=== PATIENT | female | born 1970 ===

== ENCOUNTER 2020-01-11 14:12 | Outpatient (REF) | payer MEDICAID, SELFPAY ==
--- NOTE | 2020-01-11 | MM_ITS ---
EXAMINATION: MM DIAGNOSTIC DIGITAL BREAST TOMOSYNTHESIS, BILATERAL CLINICAL INFORMATION: Bilateral whitish nipple discharge for 2 years. Family history of breast cancer (sister). The lifetime risk of breast cancer based on the Tyrer-Cuzick Model is 18%. COMPARISON: Mammography: 08/19/2017, 07/30/2017, 12/30/2013, 12/18/2012 TECHNIQUE: Digital breast tomosynthesis is performed in both the craniocaudal and mediolateral oblique views along with computer-aided detection (CAD). Synthesized 2D images are generated from the tomosynthesis. Bilateral spot magnification craniocaudal and spot magnification mediolateral views were acquired. FINDINGS: The breasts are heterogeneously dense, which may obscure small masses (ACR BI-RADS breast composition Category c). Right breast: Grouped milk of calcium calcifications in the upper outer quadrant, 4 cm from nipple are again noted with slight increase in number compared to last study. No suspicious calcifications, masses or other abnormalities are seen. Left breast: There are 2 groupings of punctate and amorphous calcifications in the left breast, one located at 3:00 anterior depth, 2 cm from nipple and second one in the upper outer quadrant 6 cm from nipple. No suspicious masses or other abnormalities are seen. The results were discussed with the patient at the time of the exam with the help of demand planning manager. MM/MM tomosynthesis diagnostic BI IMPRESSION: 1. No mammographic evidence of malignancy in the right breast. 2. Two groupings of punctate and amorphous calcifications in the left breast warrant further evaluation. ASSESSMENT: BI-RADS 4: Suspicious RECOMMENDATION: Stereotactic biopsy of 2 groupings of left breast calcifications.
--- NOTE | 2020-01-11 14:19 | US_ITS ---
EXAMINATION: US DIAGNOSTIC ULTRASOUND BREAST, LEFT CLINICAL INFORMATION: Bilateral breast discharge for 2 years.. COMPARISON: March 02, 2018. TECHNIQUE: Ultrasound of the left breast is performed retroareolar region. FINDINGS: There is no focal suspicious finding. There is no solid mass, architectural abnormality, duct ectasia, or edema in the soft tissue planes. No abnormal filling defect within ducts is identified. US/US breast LT limited IMPRESSION: No left breast retroareolar mass. ASSESSMENT: BI-RADS 1: Negative RECOMMENDATION: 1. Patient should be managed based on the clinical impression. 2. Otherwise, routine annual screening mammography. This patient's information was entered into a reminder system with a target due date for their next mammogram.
--- NOTE | 2020-01-11 14:19 | US_ITS ---
EXAMINATION: US DIAGNOSTIC ULTRASOUND BREAST, RIGHT CLINICAL INFORMATION: Bilateral breast discharge for 2 years.. COMPARISON: March 02, 2018. TECHNIQUE: Ultrasound of the right breast is performed with real-time lugo scale imaging and color Doppler. FINDINGS: There is no focal suspicious finding. There is no solid mass, architectural abnormality, duct ectasia, or edema in the soft tissue planes. No abnormal filling defect within ducts is identified. US/US breast RT limited IMPRESSION: No specific ultrasound abnormality of the retroareolar region of the right breast. ASSESSMENT: BI-RADS 1: Negative RECOMMENDATION: Routine annual mammography screening due in 12 months. Clinical follow-up. This patient's information was entered into a reminder system with a target due date for their next mammogram.
== END 2020-01-11 14:13 | disposition home or self-care (01) ==
LOC: HO.MAMMO 14:12
PROVIDERS: Visit Provider Family Medicine
DX: N64.3 Galactorrhea not associated with childbirth (principal)
CPT/HCPCS: 76642; 77062; 77066

== ENCOUNTER 2020-05-03 09:45 | Outpatient (REF) | payer MEDICAID, SELFPAY ==
--- NOTE | ~2020-05-03 | MM_ITS ---
EXAMINATION: STEREOTACTIC TOMOSYNTHESIS-GUIDED VACUUM-ASSISTED BREAST BIOPSY (TWO SITES), LEFT SPECIMEN RADIOGRAPHS (TWO SPECIMENS), LEFT POST PROCEDURE DIGITAL MAMMOGRAM, LEFT CLINICAL INFORMATION: 2 groupings punctate calcification left breast recommended for sampling. COMPARISON: Mammography 01/11/2020. TECHNIQUE/PROCEDURE: Hospital provided interpreter for the deaf assisted for consent and throughout the procedures. Informed consent was obtained from the patient after discussion of the benefits, risks, and alternatives to biopsy today. Patient appeared to understand. Gave opportunity for questions. Patient signed consent form. FIRST BIOPSY (Anterior group of calcifications): BIOPSY TABLE: Hologic Affirm Prone Biopsy System. LESION: Type group of calcifications anterior outer left breast. LOCAL ANESTHESIA: 6 mL 1% lidocaine; 10 mL 1% lidocaine with epinephrine. DERMATOTOMY: Single skin german dermatotomy performed. NEEDLE: Suros Eviva 9-gauge vacuum assisted core biopsy device. APPROACH: lateral medial. TARGETING: Digital breast tomosynthesis used for targeting. CORES: 8. CLIP: Suros SecurMark Cylinder-shaped marker. SPECIMEN RADIOGRAPH - 1st specimen: Specimen radiograph is taken in separate room using digital mammography. There is one core with tightly grouped numerous calcifications corresponding to the targeted area. SECOND BIOPSY (posterior group of calcifications): Fresh biopsy supplies are used for 2nd biopsy site. BIOPSY TABLE: Hologic Affirm Prone Biopsy System. LESION: Faint grouped calcifications approximately 4 cm posterior to the anterior group. LOCAL ANESTHESIA: 6 mL 1% lidocaine; 10 mL 1% lidocaine with epinephrine. DERMATOTOMY: Single skin german dermatotomy performed. NEEDLE: Suros Eviva 9-gauge vacuum assisted core biopsy device. APPROACH: lateral medial. TARGETING: Digital breast tomosynthesis used for targeting. CORES: 6. CLIP: Suros SecurMark T-shaped marker. SPECIMEN RADIOGRAPH (B): Specimen radiograph is taken in separate room using digital mammography. There is one core with at least 2 calcifications in another core with tightly grouped numerous calcifications corresponding to the targeted area. POST PROCEDURE UNILATERAL DIGITAL MAMMOGRAM: The post biopsy mammogram is performed in separate room using separate digital mammography equipment from the biopsy procedure. CC and ML views are obtained. There are scattered areas of fibroglandular density (breast composition category: b). The clip markers are in position. The calcifications are decreased at both biopsy sites. No gross hematoma. The patient tolerated the procedure well. No immediate complications. Home instructions reviewed with the patient. Final pathology results are pending. MM/MM stereotactic biopsy LT IMPRESSION: 1. Digital tomosynthesis-guided core biopsy left breast 2 sites with 2 clips placed. 2. Specimen radiograph taken and post procedure mammogram. There is satisfactory positioning of the biopsy clips. 3. Final pathology results pending. An addendum report will be issued.
--- NOTE | ~2020-05-03 | MM_ITS ---
EXAMINATION: STEREOTACTIC TOMOSYNTHESIS-GUIDED VACUUM-ASSISTED BREAST BIOPSY (TWO SITES), LEFT SPECIMEN RADIOGRAPHS (TWO SPECIMENS), LEFT POST PROCEDURE DIGITAL MAMMOGRAM, LEFT CLINICAL INFORMATION: 2 groupings punctate calcification left breast recommended for sampling. COMPARISON: Mammography 01/11/2020. TECHNIQUE/PROCEDURE: Hospital provided private equity analyst assisted for consent and throughout the procedures. Informed consent was obtained from the patient after discussion of the benefits, risks, and alternatives to biopsy today. Patient appeared to understand. Gave opportunity for questions. Patient signed consent form. FIRST BIOPSY (Anterior group of calcifications): BIOPSY TABLE: Hologic Affirm Prone Biopsy System. LESION: Type group of calcifications anterior outer left breast. LOCAL ANESTHESIA: 6 mL 1% lidocaine; 10 mL 1% lidocaine with epinephrine. DERMATOTOMY: Single skin german dermatotomy performed. NEEDLE: Suros Eviva 9-gauge vacuum assisted core biopsy device. APPROACH: lateral medial. TARGETING: Digital breast tomosynthesis used for targeting. CORES: 8. CLIP: Suros SecurMark Cylinder-shaped marker. SPECIMEN RADIOGRAPH - 1st specimen: Specimen radiograph is taken in separate room using digital mammography. There is one core with tightly grouped numerous calcifications corresponding to the targeted area. SECOND BIOPSY (posterior group of calcifications): Fresh biopsy supplies are used for 2nd biopsy site. BIOPSY TABLE: Hologic Affirm Prone Biopsy System. LESION: Faint grouped calcifications approximately 4 cm posterior to the anterior group. LOCAL ANESTHESIA: 6 mL 1% lidocaine; 10 mL 1% lidocaine with epinephrine. DERMATOTOMY: Single skin german dermatotomy performed. NEEDLE: Suros Eviva 9-gauge vacuum assisted core biopsy device. APPROACH: lateral medial. TARGETING: Digital breast tomosynthesis used for targeting. CORES: 6. CLIP: Suros SecurMark T-shaped marker. SPECIMEN RADIOGRAPH (B): Specimen radiograph is taken in separate room using digital mammography. There is one core with at least 2 calcifications in another core with tightly grouped numerous calcifications corresponding to the targeted area. POST PROCEDURE UNILATERAL DIGITAL MAMMOGRAM: The post biopsy mammogram is performed in separate room using separate digital mammography equipment from the biopsy procedure. CC and ML views are obtained. There are scattered areas of fibroglandular density (breast composition category: b). The clip markers are in position. The calcifications are decreased at both biopsy sites. No gross hematoma. The patient tolerated the procedure well. No immediate complications. Home instructions reviewed with the patient. Final pathology results are pending. MM/MM stereotactic biopsy ea add IMPRESSION: 1. Digital tomosynthesis-guided core biopsy left breast 2 sites with 2 clips placed. 2. Specimen radiograph taken and post procedure mammogram. There is satisfactory positioning of the biopsy clips. 3. Final pathology results pending. An addendum report will be issued.
== END 2020-05-03 09:46 | disposition home or self-care (01) ==
LOC: HO.MAMMO 09:45
PROVIDERS: Visit Provider Surgery
DX: R92.1 Mammographic calcification found on diagnostic imaging of breast (principal); D05.12 Intraductal carcinoma in situ of left breast; Z87.891 Personal history of nicotine dependence
CPT/HCPCS: 19081; 19082; 88305; 88341; 88342; 99202; A4648

== ENCOUNTER → 2020-05-11 15:24 | Outpatient (BNVA) | payer MEDICAID, SELFPAY | PROVIDERS: PCP Family Medicine; Visit Provider Surgery | DX: R92.1 Mammographic calcification found on diagnostic imaging of breast (principal) | CPT/HCPCS: 99212 ==

== ENCOUNTER → 2020-05-16 14:47 | Outpatient (BNVA) | payer MEDICAID, SELFPAY | PROVIDERS: PCP Family Medicine; Visit Provider Surgery ==

== ENCOUNTER → 2020-05-31 15:51 | Outpatient (BNVA) | payer MEDICAID, SELFPAY | PROVIDERS: PCP Family Medicine; Visit Provider Surgery | DX: D05.02 Lobular carcinoma in situ of left breast (principal); D05.10 Intraductal carcinoma in situ of unspecified breast; E11.9 Type 2 diabetes mellitus without complications; I10 Essential (primary) hypertension; F32.9 Major depressive disorder, single episode, unspecified; F17.200 Nicotine dependence, unspecified, uncomplicated; Z80.3 Family history of malignant neoplasm of breast; Z79.4 Long term (current) use of insulin; Z79.899 Other long term (current) drug therapy | CPT/HCPCS: 99212 ==

== ENCOUNTER 2020-06-16 08:41 | Day surgery (SDC) | payer MEDICAID, SELFPAY ==
[2020-06-12 15:00] VITALS: BMI 26.4
--- NOTE | 2020-06-14 15:36 | P.CONAN_ITS ---
Documented by User: Sally Cantu 06/14/20 15:37 HPI - Anesthesia Eval Consult details Narrative: 49yo F for L Breast Lumpectomy Biopsy Needle Localization PMFSH Active Problems Active Problems: All Active Problems (Updated 06/12/20 @ 14:58 by Stacy Hernandez) Family history of breast cancer (Acute) Lobular carcinoma in situ (LCIS) of left breast (Acute) Ductal carcinoma in situ (DCIS) of breast (Acute) Hypertension (Acute) Diabetes mellitus (Acute) Depression (Acute) Breast calcification, left (Acute) Past Medical History Medical History Breast calcification, left Depression Diabetes mellitus Ductal carcinoma in situ (DCIS) of breast Elevated cholesterol Family history of breast cancer Hypertension Lobular carcinoma in situ (LCIS) of left breast Family History Family History Sister History of breast cancer Surgical History Surgical History History of tubal ligation Social History Social History Smoking Status: Current some day smoker Advance Directives Information Provided: No Meds Allergies Allergy/AdvReac Type Severity Reaction Status Date / Time No Known Allergies Allergy Verified 05/31/20 16:23 [No Known Allergies*] Home Medications Medication Instructions Recorded Confirmed Last Taken Type atorvastatin 80 mg tablet 80 mg PO DAILY 05/03/20 06/12/20 Unknown History docusate sodium 100 mg capsule 100 mg PO BID 05/03/20 06/12/20 Unknown History ferrous sulfate 325 mg (65 mg 325 mg PO DAILY 05/03/20 06/12/20 Unknown History iron) tablet insulin lispro protamine-lispro 20 unit SUBCUT BID 05/03/20 06/12/20 Unknown History 100 unit/mL (75-25) subcutaneous pen lisinopril 5 mg tablet 5 mg PO DAILY 05/03/20 06/12/20 Unknown History metformin 1,000 mg tablet 1,000 mg PO BID 05/03/20 06/12/20 Unknown History oxcarbazepine 600 mg tablet 600 mg PO BID 05/03/20 06/12/20 Unknown History polyethylene glycol 3350 17 gram 17 g PO DAILY 05/03/20 06/12/20 Unknown History oral powder packet quetiapine 100 mg tablet 100 mg PO DAILY 05/03/20 06/12/20 Unknown History sertraline 100 mg tablet 200 mg PO DAILY tab 05/03/20 06/12/20 Unknown History trazodone 100 mg tablet 100 mg PO BEDTIME PRN 05/03/20 06/12/20 Unknown History Exam Exam Date and Time: June 14, 2020 1536 Height,Weight and Vital Signs: Height 5 ft 4 in Weight 70 kg Assessment and Plan Assessment Anesthesia Assessment: Chart Reviewed Documented by User: Fernanda Dial 06/16/20 11:10 [facility] Past Medical History Medical History Breast calcification, left Depression Diabetes mellitus Ductal carcinoma in situ (DCIS) of breast Elevated cholesterol Family history of breast cancer Hypertension Lobular carcinoma in situ (LCIS) of left breast Family History Family History Sister History of breast cancer Surgical History Surgical History History of tubal ligation Social History Social History Smoking Status: Current some day smoker Advance Directives Information Provided: No Meds Allergies Allergy/AdvReac Type Severity Reaction Status Date / Time No Known Allergies Allergy Verified 05/31/20 16:23 [No Known Allergies*] Home Medications Medication Instructions Recorded Confirmed Last Taken Type atorvastatin 80 mg tablet 80 mg PO DAILY 05/03/20 06/12/20 Unknown History docusate sodium 100 mg capsule 100 mg PO BID 05/03/20 06/12/20 Unknown History ferrous sulfate 325 mg (65 mg 325 mg PO DAILY 05/03/20 06/12/20 Unknown History iron) tablet insulin lispro protamine-lispro 20 unit SUBCUT BID 05/03/20 06/12/20 Unknown History 100 unit/mL (75-25) subcutaneous pen lisinopril 5 mg tablet 5 mg PO DAILY 05/03/20 06/12/20 Unknown History metformin 1,000 mg tablet 1,000 mg PO BID 05/03/20 06/12/20 Unknown History oxcarbazepine 600 mg tablet 600 mg PO BID 05/03/20 06/12/20 Unknown History polyethylene glycol 3350 17 gram 17 g PO DAILY 05/03/20 06/12/20 Unknown History oral powder packet quetiapine 100 mg tablet 100 mg PO DAILY 05/03/20 06/12/20 Unknown History sertraline 100 mg tablet 200 mg PO DAILY tab 05/03/20 06/12/20 Unknown History trazodone 100 mg tablet 100 mg PO BEDTIME PRN 05/03/20 06/12/20 Unknown History Exam Airway Mallampati Class: I (Edentulous) TM Dist: >3cm Neck ROM: Full Loose/Missing/Broken Teeth: Yes, Upper and Lower Heart: RRR Lungs: CTA Assessment and Plan Assessment Anesthesia Assessment: Anesthesia Plan Discussed and Chart Reviewed Final Anesthetic Review NPO: Yes ASA Class: II Final Preanesthetic Review: Meds/Allgs Chart Reviewed, Consent Obtained/Reviewed and Anes Risks/Benef Reviewed Patient Risk: Intermediate Procedure Risk: Low Anesthetic Plan Anesthetic Plan: MAC: Disposition: Standard PACU
[2020-06-16] VITALS (9 sets, daily range): BP systolic 102–123; BP diastolic 56–73; PULSE 78–91; RESP 12–16; TEMP 36.2–37.2; O2SAT 93–100
--- NOTE | ~2020-06-16 | MM_ITS ---
EXAMINATION: MM MAMMOGRAM GUIDED NEEDLE LOCALIZATION BREAST, LEFT MM NEEDLE LOCALIZATION SPECIMEN FROM THE LEFT BREAST CLINICAL INFORMATION: 49-year-old with recent diagnosis DCIS left breast upper outer quadrant mid depth. Family history breast cancer, sister. COMPARISON: Mammography 01/11/2020, 05/03/2020, left breast stereotactic biopsy, 05/03/2020. TECHNIQUE NEEDLE LOC: Proper informed consent is obtained from the patient after discussion of the procedure, potential risks and complications, and alternatives including declining the procedure today. Patient was given an opportunity for questions. The patient appeared to understand. The patient consented to the procedure and signed the consent form. Hospital provided diplomatic interpreter assisted for the consent and throughout the procedure. GUIDANCE: Digital mammography. APPROACH: Lateral Medial. TARGET: Suros SecurMark T-shaped marker. ANESTHESIA: lidocaine 1%: 4 mL. LOCALIZATION MARKER: [place] MammaLok 5 cm length. The skin is prepped and local anesthesia administered. The needle is positioned and position assessed with mammography. The wire is hooked into position. [place] needle protector placed. The patient tolerated the procedure well and had no immediate complication. Procedure localization discussed with Dr. Locke following the procedure. TECHNIQUE SPECIMEN RADIOGRAPH: Imaging of the excised specimen is performed using digital mammography in 1 view. FINDINGS SPECIMEN RADIOGRAPH: The specimen shows the needle and hookwire are delivered intact. The biopsy clip marker is identified in the specimen along with punctate calcifications. Results were called to Dr. Manoj Locke in the operating room at the time of imaging. MM/MM needle loc LT IMPRESSION: 1. Status post left breast needle localization with wire hooked into position. 2. Post operative specimen radiograph obtained.
[2020-06-16 09:15] LABS: Glucose, Whole Blood 114 mg/dL (60-115)
--- NOTE | 2020-06-16 10:08 | PC.NURSE ---
verbal report given to stacie monsivais for needle loc. off unit.
--- NOTE | 2020-06-16 10:45 | PC.NURSE ---
patient back from needle biopsy in [facility].
[2020-06-16] MEDS: Lactated Ringers 1,000 ML 100 ML IVCONT (10:48)
--- NOTE | 2020-06-16 11:05 | MHC.SHP ---
Pre-Procedural Eval Section B Chief Complaint: Lobular carcinoma in situ (LCIS) of left breast Allergies: Allergies Allergy/AdvReac Type Severity Reaction Status Date / Time No Known Allergies Allergy Verified 05/31/20 16:23 [No Known Allergies*] Plan I have reviewed the history and physical and performed a pertinent physical examination on my patient. No changes have occurred unless specified.
--- NOTE | 2020-06-16 12:16 | PM.OP ---
Brief Operative Note Date of Service: 06/16/20 Pre-op diagnosis: DCIS left breast Post-op diagnosis: same Procedure: Lumpectomy, left breast, with needle localization Surgeon: Manoj Locke MD Anesthesia: GLMA Estimated blood loss (mL): 30 Pathology: other (Lumpectomy specimen) Condition: stable Disposition: PACU
--- NOTE | 2020-06-16 12:17 | W.PM.OPN ---
Operative Note Operative Note Date of Service: 06/16/20 Narrative: Preop diagnosis: DCIS, left breast Postop diagnosis: DCIS left breast Procedure: Lumpectomy, left breast with needle localization Surgeon: Manoj Locke MD The patient is a 49 female who had undergone biopsy of left breast microcalcifications at the 1 o'clock position. This turned out to be DCIS on pathology. Therefore, I explained to her that we needed to proceed with surgical treatment and explained to her her options. She decided to proceed with breast conservation treatment with lumpectomy. She understood the technique of the procedure and she was aware of the risks, benefits and alternatives. She was brought to the operating room and placed supine on the table under general anesthesia via laryngeal mask airway. The left breast was prepped draped in the usual sterile fashion. She underwent needle localization earlier, and the localizing wire was seen on the left upper outer quadrant towards the medial aspect of the breast. I made an incision on the skin adjacent to this needle using a blade 15 after infiltration with lidocaine 1%. This was extended through the full-thickness of the skin and subcutaneous fat using the electrocautery I then proceeded to sharply dissect through the subcutaneous tissue all the way to the breast using curved Medrano scissors. I proceeded to dissect around the localizing needle to make sure that we had adequate margins of breast tissue around this. I proceeded to circumferentially dissect around using the Medrano scissors all the way past the curved tip of the localizing wire. I proceeded to dissect posteriorly with the same of method of sharp dissection using the Medrano scissors. I had marked the superior aspect of the lump as well as lateral aspect with sutures prior to complete excision. I continued to dissect circumferentially with good amount of tissue surrounding the needle until this was completely excised and sent as a specimen for immediate re-ray. I observed for hemostasis. I cauterized oozing areas then copiously irrigated. Once hemostasis was ensured, I proceeded to reoppose the subcutaneous layer and breast tissue with Dexon 3-0 interrupted sutures. Skin closure was achieved with Dexon 4-0 subcuticular sutures. Steri-Strips and dressings were applied. The iincision was infiltrated with Marcaine 0.5% for postop analgesia and the procedure was completed. The patient tolerated the procedure well. There were no complications noted. Initial and final counts of sponges and instruments were correct. Estimated blood was about 40 cc. The patient was extubated without difficulty in the operating room and transferred to recovery with a vice signs were Prior to completion of the procedure, I received a phone call from the radiologist confirming that the clip was within the specimen along with the entire needle. It appeared that we had included the entire area of concern within the lumpectomy specimen.
== END 2020-06-16 14:41 | disposition home or self-care (01) ==
PROVIDERS: Visit Provider Surgery
PROC: (CPT 19301; principal; 2020-06-16 11:00)
PROC: (CPT 19301; 2020-06-16 11:00)
DX: D05.02 Lobular carcinoma in situ of left breast (principal); E11.9 Type 2 diabetes mellitus without complications; I10 Essential (primary) hypertension; Z79.4 Long term (current) use of insulin; Z79.899 Other long term (current) drug therapy; Z80.3 Family history of malignant neoplasm of breast
CPT/HCPCS: 19301; 19281; 82947; 88307; 88329; 88341; 88342; A4648; J0690; J1100; J2250; J2405; J3010

== ENCOUNTER → 2020-07-06 12:53 | Outpatient (BNVA) | payer MEDICAID, SELFPAY | PROVIDERS: PCP Family Medicine; Visit Provider Surgery | DX: D05.10 Intraductal carcinoma in situ of unspecified breast (principal); Z80.3 Family history of malignant neoplasm of breast | CPT/HCPCS: 99212 ==

== ENCOUNTER → 2020-07-14 14:18 | Outpatient (BNV) | payer MEDICAID, SELFPAY | PROVIDERS: PCP Nurse Practitioner; Referring Provider Surgery; Visit Provider Internal Medicine Medical Oncology | DX: D05.12 Intraductal carcinoma in situ of left breast (principal); D64.9 Anemia, unspecified; Z79.810 Long term (current) use of selective estrogen receptor modulators (SERMs); Z92.3 Personal history of irradiation | CPT/HCPCS: 99204; 99213; 99214 ==

== ENCOUNTER → 2020-08-02 14:31 | Outpatient (BNVA) | payer MEDICAID, SELFPAY | PROVIDERS: PCP Nurse Practitioner; Referring Provider Nurse Practitioner; Visit Provider Surgery | DX: Z13.89 Encounter for screening for other disorder (principal) | CPT/HCPCS: 99212 ==

== ENCOUNTER → 2020-11-01 16:00 | Outpatient (BNVA) | payer MEDICAID, SELFPAY | PROVIDERS: PCP Nurse Practitioner; Referring Provider Nurse Practitioner; Visit Provider Surgery | DX: D05.82 Other specified type of carcinoma in situ of left breast (principal); E11.9 Type 2 diabetes mellitus without complications; F17.210 Nicotine dependence, cigarettes, uncomplicated; Z80.3 Family history of malignant neoplasm of breast; Z79.4 Long term (current) use of insulin; Z79.899 Other long term (current) drug therapy | CPT/HCPCS: 99212 ==

== ENCOUNTER 2020-12-01 14:32 | Emergency (ER) | payer MEDICAID, SELFPAY ==
--- NOTE | ~2020-12-01 | XR_ITS ---
EXAMINATION: XR CHEST CLINICAL INFORMATION: Cough. COMPARISON: None TECHNIQUE: Frontal view of the chest was obtained. FINDINGS: The lungs are well-expanded and clear of acute process. The heart size and pulmonary vascularity is normal. There is mild levoscoliosis upper dorsal spine. XR/XR chest 1V IMPRESSION: Unremarkable chest exam.
[2020-12-01 14:44] VITALS: BP 110/69; PULSE 84; O2SAT 99
--- NOTE | 2020-12-01 14:51 | ED_ITS ---
HPI - SOB/Dyspnea General Chief Complaint: General Medical Stated Complaint: covid symptoms Time Seen by Provider: 12/01/20 14:51 Source: patient and EMS Mode of arrival: EMS Limitations: no limitations History of Present Illness HPI Narrative: 50 y/o female with history of HTN, DM on insulin depression, bipolar disorder, active smoker, DCIS of left breast 2020 who presents to the ER from home via EMS with reports of one week of feeling unwell with fatigue, headaches, body aches and intermittent dizziness. She has no sick contacts at home. She was vaccinated for COVID back in July. She has not been eating or dr inking well today. She has no chest pain or SOB. No abdominal pain, N/V/D. MD elicited complaint: cough Pertinent past history: diabetes Context: recent illness Timing: constant Severity: moderate Exacerbating factors: nothing Relieving factors: nothing Known history of: diabetes Associated symptoms: denies other symptoms Treatment prior to arrival: none Related Data Home oxygen amount: none Home Medications Medication Instructions Recorded Confirmed atorvastatin 80 mg tablet (Lipitor) 80 mg PO DAILY 05/03/20 11/01/20 docusate sodium 100 mg capsule 100 mg PO BID 05/03/20 11/01/20 (Colace) insulin lispro protamine-lispro 20 unit SUBCUT BID 05/03/20 11/01/20 100 unit/mL (75-25) subcutaneous pen lisinopril 5 mg tablet 5 mg PO DAILY 05/03/20 11/01/20 metformin 1,000 mg tablet 1,000 mg PO BID 05/03/20 11/01/20 oxcarbazepine 600 mg tablet 600 mg PO BID 05/03/20 11/01/20 polyethylene glycol 3350 17 gram 17 g PO DAILY 05/03/20 11/01/20 oral powder packet (Miralax) quetiapine 100 mg tablet (Seroquel) 100 mg PO DAILY 05/03/20 11/01/20 sertraline 100 mg tablet (Zoloft) 200 mg PO DAILY tab 05/03/20 11/01/20 trazodone 100 mg tablet 100 mg PO BEDTIME PRN 05/03/20 11/01/20 Previous Rx's Medication Instructions Recorded oxycodone-acetaminophen 5 mg-325 1 - 2 tab PO Q4-6H PRN #30 tab 04/09/21 mg tablet (Percocet) ibuprofen 600 mg tablet 600 mg PO Q6H PRN #30 tab 09/22/20 ferrous sulfate 325 mg (65 mg 325 mg PO DAILY #60 tab 10/17/20 iron) tablet ferrous sulfate 325 mg (65 mg 325 mg PO DAILY #60 tab 10/17/20 iron) tablet tamoxifen 20 mg tablet 20 mg PO DAILY #90 tab 10/17/20 Allergies Allergy/AdvReac Type Severity Reaction Status Date / Time No Known Allergies Allergy Verified 12/01/20 14:59 [No Known Allergies*] Review of Systems Review of Systems: Constitutional: No Fever, No Chills ENT/Mouth: + sore throat, No Rhinorrhea, No Swallowing Difficulty Cardiovascular: No Chest Pain, No SOB, No Orthopnea, No Edema Respiratory: No Cough, No Sputum, No Wheezing, No dyspnea Gastrointestinal: No Nausea, No Vomiting, No Diarrhea, No abdominal Pain Genitourinary: No Dysuria, No Urinary Frequency, No Hematuria Musculoskeletal: + joint pain, + Myalgias Skin: No Skin Lesions, No rash Neuro: + Weakness, No Numbness, + Dizziness, + Headache Psych: No Anxiety/Panic, No Depression Heme/Lymph: No Bruising, No Lymphadenopathy Endocrine: No Polyuria, No Polydipsia [facility] Past Medical History Medical History (Updated 12/01/20 @ 19:25 by MARAH Ward) Breast calcification, left Depression Diabetes mellitus Ductal carcinoma in situ (DCIS) of breast Elevated cholesterol Family history of breast cancer Hypertension Lobular carcinoma in situ (LCIS) of left breast Surgical History H/O breast surgery History of tubal ligation Family History Family History Sister History of breast cancer Social History Social History Alcohol intake: never Patient Tobacco Use Status: Current everyday Tobacco user Tobacco use type: Cigarette Use of substances other than those prescribed or required for medical reasons: Yes Substance Use Type: Crack/Cocaine Advance Directives: No Advance Directives Information Provided: No Patient : No Physical Exam Vital Signs: Vital Signs: Last Vital Signs Temp 99.0 F 12/01/20 19:19 Pulse 75 12/01/20 19:19 Resp 16 12/01/20 19:19 BP 99/50 L 12/01/20 19:12 Pulse Ox 97 12/01/20 19:12 Body Mass Index 24.9 Appearance: Alert. Oriented X3. No acute distress. Eyes: Pupils equal, round and reactive to light. ENT: Pharynx normal. Neck: Normal inspection. Neck supple. CVS: Normal heart rate and rhythm. Pulses normal. Respiratory: No respiratory distress. Breath sounds normal. Abdomen: Soft and nontender. +BS x4 Skin: Skin warm and dry. Normal skin color. Normal skin turgor. No rashes. Extremities: No lower extremity edema. Neuro: Oriented X 3. No motor deficit. No sensory deficit. Course Course Course Narrative: 50 y/o female presenting with flu like symptoms for 1 week. Poor PO intake today. Called 911 to come to the ER for evaluation, she is very w eak. Will get COVID swab and basic lab workup. Reevaluation(s) Reevaluation #1: COVID negative. Glucose 33 - awake and alert but reports feeling tired. Given juice and a sandwich. She took her 75/25 insulin earlier today and did not eat much. Reevaluation #2: Glucose improved to 70 --> 90s with PO intake. She is feeling much better and facetiming her family. She is stable for d/c home. Hypoglycemia likely related to poor PO intake. Encouraged to check sugars ac/hs and f/u with PCP MDM - SOB/Dyspnea Lab Data Result diagrams: 12/01/20 17:06 12/01/20 17:06 Labs: Lab Results 12/01/20 12/01/20 12/01/20 Range/Units 14:51 16:51 17:06 WBC 11.5 H (4.8-10.8) X10*3/uL RBC 4.06 L (4.20-5.50) X10*6/uL Hgb 9.1 L (12.0-16.0) g/dl Hct 30.8 L (37-47) % MCV 75.9 L (80-98) fL MCH 22.4 L (27.0-33.0) pg MCHC 29.5 L (31.0-35.0) g/dl RDW 19.6 H (11.0-16.0) % Plt Count 463 H D (160-400) X10*3/uL MPV 8.4 L (9.4-12.3) fL Immature Gran % (Auto) 0.8 H (0.0-0.4) % Neut % (Auto) 71.9 (45-73) % Lymph % (Auto) 18.5 L (20-40) % Putnam % (Auto) 7.5 (2-11) % Eos % (Auto) 0.7 (0-4) % Baso % (Auto) 0.6 (0-2) % Lymph # (Auto) 2.1 (1.2-4.9) X10*3/uL [place] # (Auto) 0.9 (0.1-1.2) X10*3/uL Eos # (Auto) 0.1 (0.0-0.4) X10*3/uL Baso # (Auto) 0.1 (0.0-0.2) X10*3/uL Abs Immat Gran (auto) 0.09 H (0.00-0.03) X10*3/uL Absolute Neuts (auto) 8.3 (2.0-8.3) X10*3/uL Absolute Nucleated RBC 0.000 (0.0-0.012) X10*3/uL Nucleated RBC % (auto) 0.0 (0.0-0.2) /100WBC Sodium (135-145) mmol/L Potassium (3.3-5.1) mmol/L Chloride (96-108) mmol/L Carbon Dioxide (22-29) mmol/L Anion Gap (12-20) BUN (9-16) mg/dL Creatinine (0.5-1.4) mg/dL Estim Creat Clear Calc Estimated GFR POC Glucose 33 L* (60-115) mg/dL Random Glucose (60-115) mg/dL Calcium (8.4-10.2) mg/dL Magnesium (1.6-2.6) mg/dL Total Bilirubin (0.0-1.0) mg/dL Direct Bilirubin (0.0-0.5) mg/dL AST (5-31) U/L ALT (0-31) U/L Alkaline Phosphatase (39-117) U/L Total Protein (6.5-8.0) g/dL Albumin (3.5-5.0) g/dL COVID-19 (MILI) Negative (Negative) COVID-19 Clin Com See Note 12/01/20 12/01/20 12/01/20 Range/Units 17:06 17:46 19:11 WBC (4.8-10.8) X10*3/uL RBC (4.20-5.50) X10*6/uL Hgb (12.0-16.0) g/dl Hct (37-47) % MCV (80-98) fL MCH (27.0-33.0) pg MCHC (31.0-35.0) g/dl RDW (11.0-16.0) % Plt Count (160-400) X10*3/uL MPV (9.4-12.3) fL Immature Gran % (Auto) (0.0-0.4) % Neut % (Auto) (45-73) % Lymph % (Auto) (20-40) % [place]nam % (Auto) (2-11) % Eos % (Auto) (0-4) % Baso % (Auto) (0-2) % Lymph # (Auto) (1.2-4.9) X10*3/uL [place] # (Auto) (0.1-1.2) X10*3/uL Eos # (Auto) (0.0-0.4) X10*3/uL Baso # (Auto) (0.0-0.2) X10*3/uL Abs Immat Gran (auto) (0.00-0.03) X10*3/uL Absolute Neuts (auto) (2.0-8.3) X10*3/uL Absolute Nucleated RBC (0.0-0.012) X10*3/uL Nucleated RBC % (auto) (0.0-0.2) /100WBC Sodium 141 (135-145) mmol/L Potassium 4.0 (3.3-5.1) mmol/L Chloride 106 (96-108) mmol/L Carbon Dioxide 26 (22-29) mmol/L Anion Gap 13 (12-20) BUN 5 L (9-16) mg/dL Creatinine 0.70 (0.5-1.4) mg/dL Estim Creat Clear Calc 91.7 Estimated GFR > 60 POC Glucose 75 94 (60-115) mg/dL Random Glucose 38 L* D (60-115) mg/dL Calcium 9.2 (8.4-10.2) mg/dL Magnesium 2.0 (1.6-2.6) mg/dL Total Bilirubin 0.2 (0.0-1.0) mg/dL Direct Bilirubin < 0.2 (0.0-0.5) mg/dL AST 10 (5-31) U/L ALT 10 (0-31) U/L Alkaline Phosphatase 89 (39-117) U/L Total Protein 7.6 (6.5-8.0) g/dL Albumin 3.9 (3.5-5.0) g/dL COVID-19 (MILI) (Negative) COVID-19 Clin Com Critical Care Time Critical Care Time Critical Care Time: No Discharge Plan Discharge Clinical Impression: Hypoglycemia, Acute viral syndrome Patient Disposition: Home, Self-Care Instructions: Viral Syndrome (ED), Diabetes and Nutrition (ED) Additional Instructions: Your COVID test was NEGATIVE. Your blood sugars were noted to be low today but improved after eating and drinking. Make sure you are eating normally after taking your insulin. Monitor your sugars before meals and before bedtime. Follow up with your doctor next week. If you develop new or worsening symptoms call 911 or come back to the ER for further evaluation. Prescriptions: No Action ibuprofen 600 mg tablet 600 mg PO Q6H PRN (Reason: pain) Qty: 30 RF: 0 oxycodone-acetaminophen [Percocet] 5-325 mg tablet 1 - 2 tab PO Q4-6H PRN (Reason: pain) Qty: 30 RF: 0 ferrous sulfate 325 mg (65 mg iron) Tablet 325 mg PO DAILY Qty: 60 RF: 3 ferrous sulfate 325 mg (65 mg iron) tablet 325 mg PO DAILY Qty: 60 RF: 4 tamoxifen 20 mg Tablet 20 mg PO DAILY Qty: 90 RF: 4 atorvastatin [Lipitor] 80 mg tablet 80 mg PO DAILY RF: 0 lisinopril 5 mg tablet 5 mg PO DAILY RF: 0 docusate sodium [Colace] 100 mg capsule 100 mg PO BID RF: 0 polyethylene glycol 3350 [Miralax] 17 gram powder in packet 17 g PO DAILY RF: 0 metformin 1,000 mg tablet 1,000 mg PO BID RF: 0 insulin lispro protamin-lispro 100 unit/mL (75-25) insulin pen 20 unit subcut BID RF: 0 trazodone 100 mg tablet 100 mg PO BEDTIME PRN (Reason: Insomnia) RF: 0 oxcarbazepine 600 mg tablet 600 mg PO BID RF: 0 sertraline [Zoloft] 100 mg tablet 200 mg PO DAILY RF: 0 quetiapine [Seroquel] 100 mg tablet 100 mg PO DAILY RF: 0 Referrals: [facility] [Primary Care Provider] - 3 days Interventions: ED Discharge Assessment Last Done: 12/01/20 19:41 Discharge Date/Time: 12/01/20 19:42
[2020-12-01 14:59] VITALS: BP 109/55; PULSE 84; RESP 18; TEMP 36.9; O2SAT 98; BMI 24.9
[2020-12-01 15:20] LABS: COVID-19 Test Negative (Negative); IDNOW Serial# 9DD0AD1C
[2020-12-01 16:38] VITALS: BP 94/58; PULSE 77; RESP 18; TEMP 36.9; O2SAT 98
[2020-12-01 17:10] LABS: MANUAL DIFF FLAG NO
[2020-12-01 17:12] LABS: Basophils Absolute Auto 0.1 X10*3/uL (0.0-0.2); Basophils Percent Auto 0.6 % (0-2); Eosinophils Absolute Auto 0.1 X10*3/uL (0.0-0.4); Eosinophils Percent Auto 0.7 % (0-4); Hematocrit 30.8 % (37-47); Hemoglobin 9.1 g/dl (12.0-16.0); Imm Gran Abs Auto 0.09 X10*3/uL (0.00-0.03); Imm Gran Pct Auto 0.8 % (0.0-0.4); Lymphocytes Absolute Auto 2.1 X10*3/uL (1.2-4.9); Lymphocytes Percent Auto 18.5 % (20-40); Mean Corpuscular HGB Conc 29.5 g/dl (31.0-35.0); Mean Corpuscular Hemoglobin 22.4 pg (27.0-33.0); Mean Corpuscular Volume 75.9 fL (80-98); Mean Platelet Volume 8.4 fL (9.4-12.3); Monocytes Absolute Auto 0.9 X10*3/uL (0.1-1.2); Monocytes Percent Auto 7.5 % (2-11); Neutrophils Absolute Auto 8.3 X10*3/uL (2.0-8.3); Neutrophils Percent Auto 71.9 % (45-73); Platelet Count 463 X10*3/uL (160-400); Red Blood Count 4.06 X10*6/uL (4.20-5.50); Red Cell Distribution Width 19.6 % (11.0-16.0); White Blood Count 11.5 X10*3/uL (4.8-10.8)
[2020-12-01 17:34] LABS: Alanine Aminotransferase 10 U/L (0-31); Albumin Level 3.9 g/dL (3.5-5.0); Alkaline Phosphatase 89 U/L (39-117); Anion Gap 13 (12-20); Aspartate Amino Transferase 10 U/L (5-31); Bilirubin Direct < 0.2 mg/dL (0.0-0.5); Bilirubin Total 0.2 mg/dL (0.0-1.0); Blood Urea Nitrogen 5 mg/dL (9-16); Calcium 9.2 mg/dL (8.4-10.2); Carbon Dioxide 26 mmol/L (22-29); Chloride 106 mmol/L (96-108); Creatinine Clr Calc Pharmacy 91.7; Estimated Glomerular Filt Rate > 60; Glucose Random 38 mg/dL (60-115); Sodium 141 mmol/L (135-145); Total Protein 7.6 g/dL (6.5-8.0)
[2020-12-01 17:50] LABS: Glucose, Whole Blood 33 mg/dL (60-115)
[2020-12-01 17:50] LABS: Glucose, Whole Blood 75 mg/dL (60-115)
[2020-12-01] MEDS: Acetaminophen 325 MG TABLET 975 MG PO (18:09)
--- NOTE | 2020-12-01 18:10 | PC.NURSE ---
late entry note. after poc of 33 pt had 2 juices and a tuna sandwich. after POC of 72 pt had partial ham sandwich, one juice, grahm crackers. states she doesn't feel like eating any more. is alert and able to follow commands. overall feels better
[2020-12-01 19:12] VITALS: BP 99/50; PULSE 75; RESP 18; TEMP 37.2; O2SAT 97
[2020-12-01 19:19] VITALS: PULSE 75; RESP 16; TEMP 37.2
[2020-12-01 19:19] LABS: Glucose, Whole Blood 94 mg/dL (60-115)
== END 2020-12-01 19:42 | disposition home or self-care (01) ==
PROVIDERS: Physician Assistant; Emergency Provider Emergency Medicine
DX: B34.9 Viral infection, unspecified (principal); E11.649 Type 2 diabetes mellitus with hypoglycemia without coma; F17.210 Nicotine dependence, cigarettes, uncomplicated; F33.1 Major depressive disorder, recurrent, moderate; Z20.822 Contact with and (suspected) exposure to COVID-19; F14.90 Cocaine use, unspecified, uncomplicated; Z71.6 Tobacco abuse counseling; Z79.4 Long term (current) use of insulin; Z79.899 Other long term (current) drug therapy
CPT/HCPCS: 36415; 71045; 80048; 80076; 82947; 83735; 85025; 87635; 96360; 99284

== ENCOUNTER 2020-12-08 18:17 | Emergency (ER) | payer MEDICAID, SELFPAY ==
--- NOTE | 2020-12-08 18:29 | ED.AMS ---
HPI - Altered Mental Status General Chief Complaint: General Medical Stated Complaint: hypoglycemia 41-48 Time Seen by Provider: 12/08/20 18:27 Source: patient Mode of arrival: ambulatory Limitations: no limitations History of Present Illness HPI narrative: 42-year-old female presents emergency room with low blood sugar. When EMS arrived they said the blood sugar was in the 30s they did give some glucagon IM the guest relations receptionist IV and gave 12.5 of dextrose IV. On arrival patient was fed. Patient denies SI or turning herself she states she is taking normal dose of medications she states she did not eat lunch. MD complaint: altered mental status, confusion and decreased responsiveness Related Data Home Medications Medication Instructions Recorded Confirmed atorvastatin 80 mg tablet (Lipitor) 80 mg PO DAILY 05/03/20 11/01/20 docusate sodium 100 mg capsule 100 mg PO BID 05/03/20 11/01/20 (Colace) insulin lispro protamine-lispro 20 unit SUBCUT BID 05/03/20 11/01/20 100 unit/mL (75-25) subcutaneous pen lisinopril 5 mg tablet 5 mg PO DAILY 05/03/20 11/01/20 metformin 1,000 mg tablet 1,000 mg PO BID 05/03/20 11/01/20 oxcarbazepine 600 mg tablet 600 mg PO BID 05/03/20 11/01/20 polyethylene glycol 3350 17 gram 17 g PO DAILY 05/03/20 11/01/20 oral powder packet (Miralax) quetiapine 100 mg tablet (Seroquel) 100 mg PO DAILY 05/03/20 11/01/20 sertraline 100 mg tablet (Zoloft) 200 mg PO DAILY tab 05/03/20 11/01/20 trazodone 100 mg tablet 100 mg PO BEDTIME PRN 05/03/20 11/01/20 Previous Rx's Medication Instructions Recorded oxycodone-acetaminophen 5 mg-325 1 - 2 tab PO Q4-6H PRN #30 tab 06/16/20 mg tablet (Percocet) ibuprofen 600 mg tablet 600 mg PO Q6H PRN #30 tab 09/22/20 ferrous sulfate 325 mg (65 mg 325 mg PO DAILY #60 tab 10/17/20 iron) tablet ferrous sulfate 325 mg (65 mg 325 mg PO DAILY #60 tab 10/17/20 iron) tablet tamoxifen 20 mg tablet 20 mg PO DAILY #90 tab 10/17/20 Allergies Allergy/AdvReac Type Severity Reaction Status Date / Time No Known Allergies Allergy Verified 12/01/20 14:59 [No Known Allergies*] Review of Systems Review of Systems: Review of systems: General: Patient denies any fever chills recent illness or falls Musculoskeletal: Denies back pain or body aches or other injuries HEENT: denies headache, runny nose, ear pain Respiratory: denies shortness of breath, cough Cardiovascular: no chest pain or palpitations : denies dysuria, frequency Abdomen: no nausea vomiting denies abdominal pain Extremities: no swelling, no pain Skin: no diaphoresis Yes all other systems are reviewed and are negative PMFSH Past Medical History Medical History (Updated 12/08/20 @ 19:24 by Jerzy Simms DO) Breast calcification, left Depression Diabetes mellitus Ductal carcinoma in situ (DCIS) of breast Elevated cholesterol Family history of breast cancer Hypertension Lobular carcinoma in situ (LCIS) of left breast Surgical History H/O breast surgery History of tubal ligation Family History Family History Sister History of breast cancer Social History Social History Alcohol intake: never Patient Tobacco Use Status: Current everyday Tobacco user Tobacco use type: Cigarette Substance Use Type: Crack/Cocaine Physical Exam Vital Signs: Vital Signs: Last Vital Signs Temp 97.9 F 12/08/20 18:44 Pulse 86 12/08/20 18:44 Resp 24 H 12/08/20 18:44 BP 125/68 12/08/20 18:44 Pulse Ox 97 12/08/20 18:44 Body Mass Index 22.4 Neurological exam: CN II- XII tested. Patient is alert and oriented to person place and time. Patient has no dysphagia or dysarthia, denies good vision in all four vision chopra no nystagmus on exam, good strength to upper and lower extremities with normal reflexes to brachioradialis, wrist, patella and achilles. Negative romberg, good finger to nose and heel to [place]roy. General: Well-appearing well-nourished in no signs of distress HEENT: Normocephalic atraumatic Neck: No signs of JVD, no masses no tenderness or lymphadenopathy Cardiovascular: Regular rate and rhythm Respiratory: Clear to auscultation bilaterally Abdomen: Soft nontender no masses Extremities: Normal pedal pulses no signs of edema Skin: Dry warm no rashes Back: No tenderness full ROM MDM - Altered Mental Status MDM Narrative Medical decision making narrative: Patient with hypoglycemia give the patient fluids given dextrose feed the patient and re-evaluate. Repeat blood sugar is normal patient is awake and alert patient is happy with plan to go home. Lab Data Labs: Lab Results 12/08/20 Range/Units 18:31 POC Glucose 176 H (60-115) mg/dL Discharge Plan Discharge Clinical Impression: Diabetic hypoglycemia Patient Disposition: Home, Self-Care Instructions: What to Do if Your Blood Sugar is Low (ED), Hypoglycemia in a Person with Diabetes (ED) Additional Instructions: Please be careful with insulin and you blood sugar. If you have any other concerns please return to the ED. Prescriptions: No Action ibuprofen 600 mg tablet 600 mg PO Q6H PRN (Reason: pain) Qty: 30 RF: 0 oxycodone-acetaminophen [Percocet] 5-325 mg tablet 1 - 2 tab PO Q4-6H PRN (Reason: pain) Qty: 30 RF: 0 ferrous sulfate 325 mg (65 mg iron) Tablet 325 mg PO DAILY Qty: 60 RF: 3 ferrous sulfate 325 mg (65 mg iron) tablet 325 mg PO DAILY Qty: 60 RF: 4 tamoxifen 20 mg Tablet 20 mg PO DAILY Qty: 90 RF: 4 atorvastatin [Lipitor] 80 mg tablet 80 mg PO DAILY RF: 0 lisinopril 5 mg tablet 5 mg PO DAILY RF: 0 docusate sodium [Colace] 100 mg capsule 100 mg PO BID RF: 0 polyethylene glycol 3350 [Miralax] 17 gram powder in packet 17 g PO DAILY RF: 0 metformin 1,000 mg tablet 1,000 mg PO BID RF: 0 insulin lispro protamin-lispro 100 unit/mL (75-25) insulin pen 20 unit subcut BID RF: 0 trazodone 100 mg tablet 100 mg PO BEDTIME PRN (Reason: Insomnia) RF: 0 oxcarbazepine 600 mg tablet 600 mg PO BID RF: 0 sertraline [Zoloft] 100 mg tablet 200 mg PO DAILY RF: 0 quetiapine [Seroquel] 100 mg tablet 100 mg PO DAILY RF: 0
[2020-12-08 18:34] LABS: Glucose, Whole Blood 176 mg/dL (60-115)
[2020-12-08 18:38] VITALS: BP 98/60; PULSE 80
[2020-12-08 18:44] VITALS: BP 125/68; PULSE 86; RESP 24; TEMP 36.6; O2SAT 97; BMI 22.4
[2020-12-08] MEDS: Dextrose 5 % and Lactated Ring 1,000 ML 200 ML IVCONT (19:21)
[2020-12-08 19:23] LABS: Glucose, Whole Blood 230 mg/dL (60-115)
--- NOTE | 2020-12-08 19:24 | ED.GENADULT ---
HPI - General Adult General Chief complaint: General Medical Stated complaint: hypoglycemia 41-48 Time Seen by Provider: 12/08/20 18:27 Source: patient Mode of arrival: ambulatory Limitations: no limitations History of Present Illness HPI narrative: 42-year-old female presents via EMS patient is found have a blood sugar in 33 MS with 60 on arrival blood sugar here was 128. Patient denies fevers chills cough nausea vomiting diarrhea states his as needed as much as usual she is on insulin. She denies SI or HI she was not trying to hurt herself she had taken extra dose of her insulin drip Related Data Home Medications Medication Instructions Recorded Confirmed atorvastatin 80 mg tablet (Lipitor) 80 mg PO DAILY 05/03/20 11/01/20 docusate sodium 100 mg capsule 100 mg PO BID 05/03/20 11/01/20 (Colace) insulin lispro protamine-lispro 20 unit SUBCUT BID 05/03/20 11/01/20 100 unit/mL (75-25) subcutaneous pen lisinopril 5 mg tablet 5 mg PO DAILY 05/03/20 11/01/20 metformin 1,000 mg tablet 1,000 mg PO BID 05/03/20 11/01/20 oxcarbazepine 600 mg tablet 600 mg PO BID 05/03/20 11/01/20 polyethylene glycol 3350 17 gram 17 g PO DAILY 05/03/20 11/01/20 oral powder packet (Miralax) quetiapine 100 mg tablet (Seroquel) 100 mg PO DAILY 05/03/20 11/01/20 sertraline 100 mg tablet (Zoloft) 200 mg PO DAILY tab 05/03/20 11/01/20 trazodone 100 mg tablet 100 mg PO BEDTIME PRN 05/03/20 11/01/20 Previous Rx's Medication Instructions Recorded oxycodone-acetaminophen 5 mg-325 1 - 2 tab PO Q4-6H PRN #30 tab 06/16/20 mg tablet (Percocet) ibuprofen 600 mg tablet 600 mg PO Q6H PRN #30 tab 09/22/20 ferrous sulfate 325 mg (65 mg 325 mg PO DAILY #60 tab 10/17/20 iron) tablet ferrous sulfate 325 mg (65 mg 325 mg PO DAILY #60 tab 10/17/20 iron) tablet tamoxifen 20 mg tablet 20 mg PO DAILY #90 tab 10/17/20 Allergies Allergy/AdvReac Type Severity Reaction Status Date / Time No Known Allergies Allergy Verified 12/01/20 14:59 [No Known Allergies*] Review of Systems Review of Systems: Review of systems: General: Patient denies any fever chills recent illness or falls Musculoskeletal: Denies back pain or body aches or other injuries HEENT: denies headache, runny nose, ear pain Respiratory: denies shortness of breath, cough Cardiovascular: no chest pain or palpitations : denies dysuria, frequency Abdomen: no nausea vomiting denies abdominal pain Extremities: no swelling, no pain Skin: no diaphoresis Yes all other systems are reviewed and are negative PMFSH Past Medical History Medical History (Updated 12/08/20 @ 19:24 by Jerzy Simms DO) Breast calcification, left Depression Diabetes mellitus Ductal carcinoma in situ (DCIS) of breast Elevated cholesterol Family history of breast cancer Hypertension Lobular carcinoma in situ (LCIS) of left breast Surgical History H/O breast surgery History of tubal ligation Family History Family History Sister History of breast cancer Social History Social History Alcohol intake: never Patient Tobacco Use Status: Current everyday Tobacco user Tobacco use type: Cigarette Substance Use Type: Crack/Cocaine Advance Directives: No Advance Directives Information Provided: Yes Physical Exam Vital Signs: Vital Signs: Last Vital Signs Temp 97.9 F 12/08/20 18:44 Pulse 86 12/08/20 18:44 Resp 24 H 12/08/20 18:44 BP 125/68 12/08/20 18:44 Pulse Ox 97 12/08/20 18:44 Body Mass Index 22.4 General: Well-appearing well-nourished in no signs of distress HEENT: Normocephalic atraumatic Neck: No signs of JVD, no masses no tenderness or lymphadenopathy Cardiovascular: Regular rate and rhythm Respiratory: Clear to auscultation bilaterally Abdomen: Soft nontender no masses Extremities: Normal pedal pulses no signs of edema Skin: Dry warm no rashes Back: No tenderness full ROM Medical Decision Making MDM Narrative Medical decision making narrative: Patient with hyperglycemia I will feed the patient also started on D5 note patient here for an hour. After med and have patient still wake feeling much better blood sugar was in the 260s all discharge home. Lab Data Labs: Lab Results 12/08/20 12/08/20 Range/Units 18:31 19:19 POC Glucose 176 H 230 H (60-115) mg/dL Discharge Plan Discharge Clinical Impression: Diabetic hypoglycemia Patient Disposition: Home, Self-Care Instructions: Hypoglycemia in a Person with Diabetes (ED), What to Do if Your Blood Sugar is Low (ED) Additional Instructions: Please be careful with insulin and you blood sugar. If you have any other concerns please return to the ED. Prescriptions: No Action ibuprofen 600 mg tablet 600 mg PO Q6H PRN (Reason: pain) Qty: 30 RF: 0 oxycodone-acetaminophen [Percocet] 5-325 mg tablet 1 - 2 tab PO Q4-6H PRN (Reason: pain) Qty: 30 RF: 0 ferrous sulfate 325 mg (65 mg iron) Tablet 325 mg PO DAILY Qty: 60 RF: 3 ferrous sulfate 325 mg (65 mg iron) tablet 325 mg PO DAILY Qty: 60 RF: 4 tamoxifen 20 mg Tablet 20 mg PO DAILY Qty: 90 RF: 4 atorvastatin [Lipitor] 80 mg tablet 80 mg PO DAILY RF: 0 lisinopril 5 mg tablet 5 mg PO DAILY RF: 0 docusate sodium [Colace] 100 mg capsule 100 mg PO BID RF: 0 polyethylene glycol 3350 [Miralax] 17 gram powder in packet 17 g PO DAILY RF: 0 metformin 1,000 mg tablet 1,000 mg PO BID RF: 0 insulin lispro protamin-lispro 100 unit/mL (75-25) insulin pen 20 unit subcut BID RF: 0 trazodone 100 mg tablet 100 mg PO BEDTIME PRN (Reason: Insomnia) RF: 0 oxcarbazepine 600 mg tablet 600 mg PO BID RF: 0 sertraline [Zoloft] 100 mg tablet 200 mg PO DAILY RF: 0 quetiapine [Seroquel] 100 mg tablet 100 mg PO DAILY RF: 0 Interventions: ED Discharge Assessment Last Done: 12/08/20 20:22 Discharge Date/Time: 12/08/20 20:27
== END 2020-12-08 20:27 | disposition home or self-care (01) ==
LOC: HO.ED 19:28
PROVIDERS: Emergency Provider Student in an Organized Health Care Education/Training Program
DX: E11.649 Type 2 diabetes mellitus with hypoglycemia without coma (principal); F14.10 Cocaine abuse, uncomplicated; F17.210 Nicotine dependence, cigarettes, uncomplicated; Z79.4 Long term (current) use of insulin; Z71.6 Tobacco abuse counseling; Z79.899 Other long term (current) drug therapy
CPT/HCPCS: 82947; 96365; 96366; 99283; 99284

== ENCOUNTER 2021-02-20 14:04 | Outpatient (REF) | payer MEDICAID, SELFPAY | END 2021-02-20 14:05 | disposition home or self-care (01) | LOC: HO.MDS 14:04 | PROVIDERS: Visit Provider Internal Medicine Medical Oncology | DX: D50.9 Iron deficiency anemia, unspecified (principal) | CPT/HCPCS: 96365; J2916 ==

== ENCOUNTER 2021-02-21 08:47 | Day surgery (SDC) | payer MEDICAID, SELFPAY ==
[2021-02-15 10:05] VITALS: BMI 25.9
--- NOTE | 2021-02-20 12:10 | P.CONAN_ITS ---
Documented by User: Sally Cantu NP 02/20/21 12:12 HPI - Anesthesia Eval Consult details Narrative: 50yo F for Upper Endoscopy and Colonoscopy PMFSH Active Problems Active Problems: All Active Problems (Updated 02/15/21 @ 10:04 by Stacy Hernandez, YOAN) Anemia (Acute) Family history of breast cancer (Acute) Lobular carcinoma in situ (LCIS) of left breast (Acute) Ductal carcinoma in situ (DCIS) of breast (Acute) Hypertension (Acute) Diabetes mellitus (Acute) Depression (Acute) Breast calcification, left (Acute) Past Medical History Medical History (Updated 02/15/21 @ 10:04 by Stacy Hernandez RN) Breast calcification, left Depression Diabetes mellitus Ductal carcinoma in situ (DCIS) of breast Elevated cholesterol Family history of breast cancer Hypertension Lobular carcinoma in situ (LCIS) of left breast Family History Family History Sister History of breast cancer Surgical History Surgical History (Updated 02/15/21 @ 12:14 by Codie Quintero MD) H/O breast surgery H/O colonoscopy History of tubal ligation Social History Social History Alcohol intake: never Patient Tobacco Use Status: Current everyday Tobacco user Tobacco use type: Cigarette Use of substances other than those prescribed or required for medical reasons: No Substance Use Type: Crack/Cocaine Advance Directives Information Provided: No Advance Directives on File: No Meds Allergies Allergy/AdvReac Type Severity Reaction Status Date / Time No Known Allergies Allergy Verified 02/15/21 09:58 [No Known Allergies*] Home Medications Medication Instructions Recorded Confirmed Last Taken Type atorvastatin 80 mg tablet (Lipitor) 80 mg PO DAILY 05/03/20 02/15/21 Unknown History docusate sodium 100 mg capsule 100 mg PO BID 05/03/20 02/15/21 Unknown History (Colace) insulin lispro protamine-lispro See Rx Instructions .ROUTE .COMPLEX 05/03/20 02/15/21 Unknown History 100 unit/mL (75-25) subcutaneous pen lisinopril 5 mg tablet 5 mg PO DAILY 05/03/20 02/15/21 Unknown History metformin 1,000 mg tablet 1,000 mg PO BID 05/03/20 02/15/21 Unknown History oxcarbazepine 600 mg tablet 600 mg PO DAILY 05/03/20 02/15/21 Unknown History quetiapine 100 mg tablet (Seroquel) 100 mg PO DAILY 05/03/20 02/15/21 Unknown History sertraline 100 mg tablet (Zoloft) 200 mg PO DAILY tab 05/03/20 02/15/21 Unknown History trazodone 100 mg tablet 100 mg PO BEDTIME PRN 05/03/20 02/15/21 Unknown History dapagliflozin 5 mg tablet (Farxiga) 1 tab PO QAM 01/22/21 02/15/21 Unknown History paliperidone palmitate 234 mg/1.5 234 mg IM Q4W 02/15/21 02/15/21 Unknown History mL intramuscular syringe (Invega Sustenna) Exam Exam Date and Time: February 20, 2021 1210 Height,Weight and Vital Signs: Height 5 ft 4 in Weight 68.492 kg Pertinent Lab Results Pertinent Lab Results: Laboratory Tests 02/15/21 02/15/21 10:10 10:10 WBC 15.1 H Hgb 9.6 L Hct 32.6 L Plt Count 397 Sodium 140 Potassium 3.7 Chloride 106 Carbon Dioxide 28 BUN 6 L Creatinine 0.70 Assessment and Plan Assessment Anesthesia Assessment: Chart Reviewed Documented by User: Jamie Bolanos 02/21/21 09:17 [facility] Past Medical History Medical History (Updated 02/15/21 @ 10:04 by Stacy Hernandez RN) Breast calcification, left Depression Diabetes mellitus Ductal carcinoma in situ (DCIS) of breast Elevated cholesterol Family history of breast cancer Hypertension Lobular carcinoma in situ (LCIS) of left breast Family History Family History Sister History of breast cancer Family history of problems with anesthesia: No Surgical History Surgical History (Updated 02/15/21 @ 12:14 by Codie Quintero MD) H/O breast surgery H/O colonoscopy History of tubal ligation History of Problems with Anesthesia: No Social History Social History Alcohol intake: never Patient Tobacco Use Status: Current everyday Tobacco user Tobacco use type: Cigarette Use of substances other than those prescribed or required for medical reasons: No Substance Use Type: Crack/Cocaine Advance Directives Information Provided: No Advance Directives on File: No Meds Allergies Allergy/AdvReac Type Severity Reaction Status Date / Time No Known Allergies Allergy Verified 02/15/21 09:58 [No Known Allergies*] Home Medications Medication Instructions Recorded Confirmed Last Taken Type atorvastatin 80 mg tablet (Lipitor) 80 mg PO DAILY 05/03/20 02/15/21 Unknown History docusate sodium 100 mg capsule 100 mg PO BID 05/03/20 02/15/21 Unknown History (Colace) insulin lispro protamine-lispro See Rx Instructions .ROUTE .COMPLEX 05/03/20 02/15/21 Unknown History 100 unit/mL (75-25) subcutaneous pen lisinopril 5 mg tablet 5 mg PO DAILY 05/03/20 02/15/21 Unknown History metformin 1,000 mg tablet 1,000 mg PO BID 05/03/20 02/15/21 Unknown History oxcarbazepine 600 mg tablet 600 mg PO DAILY 05/03/20 02/15/21 Unknown History quetiapine 100 mg tablet (Seroquel) 100 mg PO DAILY 05/03/20 02/15/21 Unknown History sertraline 100 mg tablet (Zoloft) 200 mg PO DAILY tab 05/03/20 02/15/21 Unknown History trazodone 100 mg tablet 100 mg PO BEDTIME PRN 05/03/20 02/15/21 Unknown History dapagliflozin 5 mg tablet (Farxiga) 1 tab PO QAM 01/22/21 02/15/21 Unknown History paliperidone palmitate 234 mg/1.5 234 mg IM Q4W 02/15/21 02/15/21 Unknown History mL intramuscular syringe (Invega Sustenna) Exam Airway Mallampati Class: II Denture: Upper and Lower Loose/Missing/Broken Teeth: Yes Heart: rrr Lungs: bl breath sounds Assessment and Plan Final Anesthetic Review Family History of Problems with Anesthesia: No History of Problems with Anesthesia: No NPO: Yes ASA Class: II Patient Risk: Intermediate Procedure Risk: Intermediate Anesthetic Plan Anesthetic Plan: GA Disposition: Standard PACU
[2021-02-21 09:12] VITALS: BP 107/54; PULSE 66; RESP 18; TEMP 36.6; O2SAT 98
[2021-02-21 09:12] LABS: Glucose, Whole Blood 87 mg/dL (60-115)
[2021-02-21] MEDS: Albuterol/Iprat 2.5/0.5MG 3 ML AMPUL.NEB INHALE (09:29)
[2021-02-21 09:32] VITALS: PULSE 64; RESP 18; O2SAT 100
[2021-02-21] MEDS: Lactated Ringers 1,000 ML 100 ML IVCONT (09:34)
[2021-02-21] MEDS: Dextrose 5 % 500 ML 100 ML IV (09:36)
--- NOTE | 2021-02-21 11:41 | PM.OP ---
Brief Operative Note Date of Service: 02/21/21 Pre-op diagnosis: Iron def. anemia Post-op diagnosis: other (R/O celiac disease, Hiatal hernia, Appendiceal orifice polyp) Procedure: EGD with biopsies, Colonoscopy to the cecum with biopsies Surgeon: Pedro Ledesma Anesthesia: MAC Was an Polygraph Examiner used for this Procedure?: No Estimated blood loss (mL): 2.0 Pathology: other (A. Descending duodenum B. Appendiceal orifice polyp) Condition: stable Disposition: PACU
[2021-02-21 11:42] VITALS: BP 99/62; PULSE 76; RESP 17; TEMP 36.9; O2SAT 100
[2021-02-21 11:57] VITALS: BP 112/70; PULSE 70; RESP 16; TEMP 36.9; O2SAT 100
--- NOTE | 2021-02-21 12:28 | OP_ITS ---
SURGEON: Pedro Ledesma MD INDICATIONS: The patient presents for evaluation of iron-deficiency anemia. Full consent obtained from her for this, including risks of bleeding and perforation. PREOPERATIVE DIAGNOSIS: Iron-deficiency anemia. POSTOPERATIVE DIAGNOSIS: Iron-deficiency anemia, rule out celiac disease, small hiatal hernia, rule out polyp of appendiceal orifice, internal hemorrhoids. PROCEDURE PERFORMED: ESTIMATED BLOOD LOSS: COMPLICATIONS: ANESTHESIA: Monitored anesthesia care. ASSISTANTS: SPECIMENS: PROCEDURE: Esophagogastroduodenoscopy with biopsies, and colonoscopy to the cecum with biopsies. DESCRIPTION OF PROCEDURE: The patient was placed in the left lateral decubitus position. The Olympus video gastroscope was passed in the posterior oropharynx and upper esophagus under direct vision. The scope was passed slowly to the distal esophagus. The gastroesophageal junction appeared at 35 cm. There was some minimal erythema consistent with some reflux, but there was no esophagitis, Parr's esophagus, nor any lesions. There was a small hiatal hernia. The scope was advanced to the pylorus. The duodenum was cannulated to the descending portion. The duodenum including the bulb appeared normal without mass or ulceration. Biopsies were obtained in the 2nd and 3rd portions of duodenum. The scope was withdrawn back to the stomach. The gastric antrum and body appeared normal with good peristalsis. Scope was retroflexed visualizing the proximal stomach carefully which appeared normal, without any sign of mass or ulceration. The scope was straightened and withdrawn back to the esophagus. The esophageal mucosa appeared normal. The scope was withdrawn from the patient. She was turned around for the colonoscopy. The digital rectal exam revealed no abnormalities. The Olympus video pediatric colonoscope was entered into the rectum, advanced easily to the cecum. Portions of the cecum were obscured by some retained stool and old food debris. However, the majority of the cecum was visualized. The region of the appendiceal orifice appeared to have polypoid adenomatous type tissue, which seemed to fill the majority of the appendiceal orifice.It was not on a stalk. Multiple biopsies were obtained from it. Given its location it could not be removed completely.. There was transillumination of light deep in the right lower quadrant. The scope was then slowly withdrawn assessing all mucosal surfaces carefully. Preparation throughout the colon was somewhat limited by similar retained stool and food, although others portions of the colon were well visualized. I did not visualize any other polyps, colitis, nor angiodysplasia. However, again the visualization was limited. In the rectum, the scope was retroflexed visualizing internal hemorrhoids, but no other pathology. The scope was straightened and withdrawn from the patient. She tolerated both procedures well and was returned to the recovery area in stable condition. IMPRESSION: 1. Polypoid lesion in appendiceal orifice, status post biopsy. 2. Small hiatal hernia. 3. Rule out celiac disease. 4. Internal hemorrhoids. PLAN: The results of the biopsies will be checked. She has been advised to resume her iron. She did have an iron infusion yesterday as well. She was advised to avoid aspirin and NSAIDs. She will have followup depending upon the results of the biopsies from the appendiceal orifice. If the biopsies from the appendiceal orifice show adenomatous tissue, then I would recommend surgical consultation to have this area removed, i.e. appendectomy, to completely excise the polypoid area if indeed it is adenomatous. This has been discussed with her rigging worker, Caitlin. MD JUANJO Rose/RENAE / [id number] MTDAnny
== END 2021-02-21 12:25 | disposition home or self-care (01) ==
PROVIDERS: PCP Nurse Practitioner; Visit Provider Internal Medicine
PROC: (CPT 45380; principal; 2021-02-21 10:20)
DX: D50.0 Iron deficiency anemia secondary to blood loss (chronic) (principal); D12.1 Benign neoplasm of appendix; K64.8 Other hemorrhoids; K44.9 Diaphragmatic hernia without obstruction or gangrene; K59.09 Other constipation; D05.12 Intraductal carcinoma in situ of left breast; I10 Essential (primary) hypertension; E11.9 Type 2 diabetes mellitus without complications; E78.00 Pure hypercholesterolemia, unspecified; F31.9 Bipolar disorder, unspecified; J45.909 Unspecified asthma, uncomplicated; Z79.4 Long term (current) use of insulin; Z79.810 Long term (current) use of selective estrogen receptor modulators (SERMs); Z79.899 Other long term (current) drug therapy; F17.210 Nicotine dependence, cigarettes, uncomplicated
CPT/HCPCS: 45380; 43239; 82947; 88305; 94640; J2370

== ENCOUNTER → 2021-02-26 11:23 | Outpatient (BNVA) | payer MEDICAID, SELFPAY | PROVIDERS: PCP Nurse Practitioner; Referring Provider Internal Medicine Medical Oncology; Visit Provider Surgery | DX: N64.52 Nipple discharge (principal); Z79.810 Long term (current) use of selective estrogen receptor modulators (SERMs) | CPT/HCPCS: 99212 ==

== ENCOUNTER 2021-02-27 12:58 | Outpatient (REF) | payer MEDICAID, SELFPAY ==
[2021-02-27 13:32] LABS: MANUAL DIFF FLAG NO
[2021-02-27 13:35] LABS: Basophils Absolute Auto 0.1 X10*3/uL (0.0-0.2); Basophils Percent Auto 0.8 % (0-2); Eosinophils Absolute Auto 0.1 X10*3/uL (0.0-0.4); Eosinophils Percent Auto 1.2 % (0-4); Hematocrit 32.3 % (37.0-47.0); Hemoglobin 9.4 g/dl (12.0-16.0); Imm Gran Abs Auto 0.04 X10*3/uL (0.00-0.03); Imm Gran Pct Auto 0.4 % (0.0-0.4); Lymphocytes Absolute Auto 1.7 X10*3/uL (1.2-4.9); Lymphocytes Percent Auto 18.3 % (20-40); Mean Corpuscular HGB Conc 29.1 g/dl (31.0-35.0); Mean Corpuscular Hemoglobin 21.8 pg (27.0-33.0); Mean Corpuscular Volume 74.9 fL (80.0-98.0); Mean Platelet Volume 9.2 fL (9.4-12.3); Monocytes Absolute Auto 0.7 X10*3/uL (0.1-1.2); Monocytes Percent Auto 8.2 % (2-11); Neutrophils Absolute Auto 6.4 x10*3/uL (2.0-8.3); Neutrophils Percent Auto 71.1 % (45-73); Platelet Count 402 X10*3/uL (160-400); Red Blood Count 4.31 X10*6/uL (4.20-5.50); Red Cell Distribution Width 25.8 % (11.0-16.0); White Blood Count 9.1 X10*3/uL (4.8-10.8)
[2021-02-27 13:53] LABS: Alanine Aminotransferase 15 U/L (0-31); Albumin Level 3.6 g/dL (3.5-5.0); Alkaline Phosphatase 79 U/L (39-117); Anion Gap 12 (12-20); Aspartate Amino Transferase 12 U/L (5-31); Bilirubin Total 0.3 mg/dL (0.0-1.0); Blood Urea Nitrogen 5 mg/dL (9-16); Calcium 9.2 mg/dL (8.4-10.2); Carbon Dioxide 24 mmol/L (22-29); Chloride 107 mmol/L (96-108); Estimated Glomerular Filt Rate > 60; Glucose Random 303 mg/dL (60-115); Potassium 3.9 mmol/L (3.3-5.1); Sodium 139 mmol/L (135-145); Total Protein 7.1 g/dL (6.5-8.0)
[2021-03-06 12:06] LABS: CA 27.29 21 U/mL (<38)
== END 2021-02-27 12:59 | disposition home or self-care (01) ==
LOC: HO.MDS 12:58
PROVIDERS: PCP Nurse Practitioner; Visit Provider Internal Medicine Medical Oncology
DX: D50.9 Iron deficiency anemia, unspecified (principal)
CPT/HCPCS: 36415; 80053; 85025; 86300; 96365; J2916

== ENCOUNTER 2021-02-28 14:16 | Outpatient (REF) | payer MEDICAID, SELFPAY ==
--- NOTE | ~2021-02-28 | MM_ITS ---
EXAMINATION: MM DIAGNOSTIC DIGITAL BREAST TOMOSYNTHESIS, BILATERAL US DIAGNOSTIC ULTRASOUND BREAST, LEFT CLINICAL INFORMATION: Left breast DCIS status post lumpectomy 06/16/2020. Radiation concluded during October 2020. Patient presents with recent left nipple discharge/creamy possible pus. Antibiotics completed approximately one week ago. Patient notes discharge decreased since antibiotics. COMPARISON: Mammography: 06/16/2020 (needle localization), 05/03/2020 (stereotactic biopsy), 01/11/2020, 08/19/2017, 07/30/2017 TECHNIQUE: Digital breast tomosynthesis is performed in both the craniocaudal and mediolateral oblique views along with computer-aided detection (CAD). Synthesized 2D images are generated from the tomosynthesis. Additional magnification left CC and magnification left ML views are obtained. Ultrasound left breast is targeted to the retroareolar and periareolar region. Grayscale imaging and color Doppler are performed without and with harmonics. FINDINGS: There are scattered areas of fibroglandular density (ACR BI-RADS breast composition Category b). Breast tissue composition borders on heterogeneously dense. Right breast parenchymal pattern is stable. There is no interval mass or developing density or architectural abnormality. There are some grouped calcifications with milk of calcium layering on MLO view central upper outer breast, similar to diagnostic magnification views 01/11/2020. There are post therapy changes on the left with reduced breast size and mild scarring. There is smooth skin thickening and mild coarsening of the Darren's ligaments. There is no interval mass or focal architectural abnormality or duct ectasia. Biopsy clip marker again noted anterior upper outer left breast at site of prior benign biopsy. Ultrasound left breast demonstrates no focal duct ectasia, cystic or solid mass, or edema tracking in soft tissue planes. No focal hyperemia. Results are discussed with the patient at time of visit, using an boiler coverer helper. MM/MM tomosynthesis diagnostic BI IMPRESSION: 1. Left: Post therapy changes. No abscess or focal duct dilatation. 2. Right: No mammographic evidence of malignancy. ASSESSMENT: BI-RADS 2: Benign RECOMMENDATION: 1. Patient should be managed based on the clinical impression. 2. Otherwise, annual bilateral mammography. This patient's information was entered into a reminder system with a target due date for their next mammogram.
== END 2021-02-28 14:17 | disposition home or self-care (01) ==
LOC: HO.MAMMO 14:16
PROVIDERS: Visit Provider Internal Medicine Medical Oncology
DX: N64.52 Nipple discharge (principal)
CPT/HCPCS: 76642; 77062; 77066

== ENCOUNTER 2021-03-06 13:14 | Outpatient (REF) | payer MEDICAID, SELFPAY | END 2021-03-06 13:15 | disposition home or self-care (01) | LOC: HO.MDS 13:14 | PROVIDERS: PCP Nurse Practitioner; Visit Provider Internal Medicine Medical Oncology | DX: D50.9 Iron deficiency anemia, unspecified (principal) | CPT/HCPCS: 96365; J2916 ==

== ENCOUNTER 2021-03-13 13:29 | Outpatient (REF) | payer MEDICAID, SELFPAY ==
[2021-03-13 14:05] LABS: MANUAL DIFF FLAG NO
[2021-03-13 14:08] LABS: Basophils Absolute Auto 0.1 X10*3/uL (0.0-0.2); Basophils Percent Auto 0.6 % (0-2); Eosinophils Absolute Auto 0.1 X10*3/uL (0.0-0.4); Eosinophils Percent Auto 1.1 % (0-4); Hematocrit 39.1 % (37.0-47.0); Hemoglobin 11.7 g/dl (12.0-16.0); Imm Gran Abs Auto 0.05 X10*3/uL (0.00-0.03); Imm Gran Pct Auto 0.5 % (0.0-0.4); Lymphocytes Absolute Auto 1.7 X10*3/uL (1.2-4.9); Lymphocytes Percent Auto 17.7 % (20-40); Mean Corpuscular HGB Conc 29.9 g/dl (31.0-35.0); Mean Corpuscular Hemoglobin 22.8 pg (27.0-33.0); Mean Corpuscular Volume 76.2 fL (80.0-98.0); Mean Platelet Volume 8.7 fL (9.4-12.3); Monocytes Absolute Auto 0.8 X10*3/uL (0.1-1.2); Monocytes Percent Auto 8.5 % (2-11); Neutrophils Absolute Auto 6.9 x10*3/uL (2.0-8.3); Neutrophils Percent Auto 71.6 % (45-73); Platelet Count 354 X10*3/uL (160-400); Red Blood Count 5.13 X10*6/uL (4.20-5.50); White Blood Count 9.6 X10*3/uL (4.8-10.8)
== END 2021-03-13 13:30 | disposition home or self-care (01) ==
LOC: HO.MDS 13:29
PROVIDERS: PCP Nurse Practitioner; Visit Provider Internal Medicine Medical Oncology
DX: D50.9 Iron deficiency anemia, unspecified (principal)
CPT/HCPCS: 36415; 85025; 96365; J2916

== ENCOUNTER 2021-03-14 13:56 | Outpatient (REF) | payer MEDICAID, SELFPAY ==
[2021-03-14 15:59] LABS: Blood Urea Nitrogen 4 mg/dL (9-16); Estimated Glomerular Filt Rate > 60
== END 2021-03-14 13:57 | disposition home or self-care (01) ==
LOC: HO.LAB 13:56
PROVIDERS: PCP Nurse Practitioner; Referring Provider Internal Medicine; Visit Provider Surgery
DX: K63.5 Polyp of colon (principal)
CPT/HCPCS: 36415; 82565; 84520; 99212

== ENCOUNTER 2021-04-04 14:07 | Outpatient (REF) | payer MEDICAID, SELFPAY ==
--- NOTE | ~2021-04-04 | CT_ITS ---
EXAMINATION: CT ABDOMEN AND PELVIS WITH CONTRAST CLINICAL INFORMATION: Colon polyps COMPARISON: Previous CT of the abdomen and pelvis November 2015 TECHNIQUE: Multidetector volumetric images were obtained from the superior aspect of the liver through the pubic symphysis following administration 85 mL of Omnipaque 350 intravenous contrast. Sagittal and coronal reformatted images were obtained on the technologist's workstation. Oral contrast: Yes This CT examination was performed using dose optimization techniques as appropriate, variously including the following: *Automated exposure control *Adjustment of mA and/or kV according to patient size (this includes techniques or standardized protocols for targeted exams where dose is matched to indication/reason for exam; i.e. extremities or head) *Use of iterative reconstruction technique DLP: 381 mGy-cm FINDINGS: LUNG BASES: The visualized lung bases are unremarkable. LIVER, GALLBLADDER, AND BILIARY TREE: The liver is normal in size, shape, and attenuation. No focal hepatic lesion or biliary ductal dilatation is present. The gallbladder has been removed. PANCREAS: Unremarkable. SPLEEN: Unremarkable. ADRENAL GLANDS: Unremarkable. KIDNEYS AND URETERS: There is a 1 cm cyst in the posterior upper pole of the left kidney. No imaging follow-up needed. This is similar to November 2015 exam. There is a ill-defined hypoechoic area in the posterior lateral left kidney for example axial image 34 series 3. This measures approximately 1.8 cm. This is decreased in size from January 2016 exam when low-attenuation area measured approximately 3.4 x 5.1 cm. This probably represents scarring related to prior pyelonephritis. BLADDER: There may be mild diffuse bladder wall thickening. GASTROINTESTINAL TRACT: The small and large bowel are unremarkable. The base of the appendix is normal appearing. There is focal thickening at the tip of the appendix. This measures up to 9 x 10 mm axial image 60 series 3, coronal reconstructed image 47 and sagittal reconstructed image 79. This is similar to 2016 exam. The surrounding fat is normal. There is no ascites adjacent to the appendix. The stomach is unremarkable. ABDOMINAL WALL: No significant hernia is appreciated. LYMPH NODES: Normal. VASCULAR: Unremarkable. PELVIC VISCERA: There is trace of fluid in the pelvis. Left ovarian vessels appear slightly prominent. OSSEOUS STRUCTURES: There are mild degenerative changes of the spine. CT/CT abdomen pelvis w con IMPRESSION: No colon mass is seen. There is slight thickening of the tip of the appendix measuring 9 to 10 mm. This is similar to November 2015 exam. The surrounding periappendiceal fat is normal. Stable small left renal cyst. Probable scarring in the left kidney from previous pyelonephritis. Mild diffuse bladder wall thickening. Fleischner guidelines were followed.
[2021-04-04] MEDS: iohexoL 350 MG/ML 100 ML INFUS..BTL IV (14:47)
== END 2021-04-04 14:08 | disposition home or self-care (01) ==
LOC: HO.CT 14:07
PROVIDERS: Visit Provider Surgery
DX: K63.5 Polyp of colon (principal)
CPT/HCPCS: 74177; Q9967

== ENCOUNTER 2021-04-19 15:00 | Outpatient (REF) | payer MEDICAID, SELFPAY ==
--- NOTE | ~2021-04-19 | MM_ITS ---
EXAMINATION: MM DIAGNOSTIC DIGITAL BREAST TOMOSYNTHESIS, BILATERAL CLINICAL INFORMATION: Left DCIS postlumpectomy 06/16/2020. Radiation concluded October 2020. Benign left stereotactic biopsy anterior upper outer left breast 05/03/2020 (cylinder-shaped marker). COMPARISON: Mammography: 02/28/2021, 06/16/2020, 05/03/2020, 01/11/2020, 08/19/2017, 07/30/2017 TECHNIQUE: Digital breast tomosynthesis is performed in both the craniocaudal and mediolateral oblique views along with computer-aided detection (CAD). Synthesized 2D images are generated from the tomosynthesis. Additional magnification left CC, magnification left ML, exaggerated left CC views are obtained. FINDINGS: There are scattered areas of fibroglandular density (ACR BI-RADS breast composition Category b). Post therapy changes left breast are again noted with mild reduced breast size and stable scarring. There is mild smooth anterior left breast skin thickening similar to prior exam. Biopsy clip marker is again noted anterior upper outer left breast. Neither breast shows interval mass or architectural abnormality or developing density. There are some loosely grouped calcifications again seen mid upper outer right breast with some layering on MLO view. No significant changes. Results are provided to the patient at time of visit by the technologist. MM/MM tomosynthesis diagnostic BI IMPRESSION: No mammographic evidence of malignancy. Post therapy changes left breast. ASSESSMENT: BI-RADS 2: Benign RECOMMENDATION: Routine annual mammography screening. This patient's information was entered into a reminder system with a target due date for their next mammogram.
[2021-04-19 16:51] LABS: MANUAL DIFF FLAG NO
[2021-04-19 17:55] LABS: Basophils Absolute Auto 0.1 X10*3/uL (0.0-0.2); Basophils Percent Auto 0.5 % (0-2); Eosinophils Absolute Auto 0.2 X10*3/uL (0.0-0.4); Eosinophils Percent Auto 1.7 % (0-4); Hematocrit 39.6 % (37.0-47.0); Imm Gran Abs Auto 0.05 X10*3/uL (0.00-0.03); Imm Gran Pct Auto 0.5 % (0.0-0.4); Lymphocytes Absolute Auto 1.7 X10*3/uL (1.2-4.9); Lymphocytes Percent Auto 16.1 % (20-40); Mean Corpuscular HGB Conc 30.3 g/dl (31.0-35.0); Mean Corpuscular Hemoglobin 23.6 pg (27.0-33.0); Mean Platelet Volume 8.7 fL (9.4-12.3); Monocytes Absolute Auto 0.9 X10*3/uL (0.1-1.2); Monocytes Percent Auto 8.6 % (2-11); Neutrophils Absolute Auto 7.5 x10*3/uL (2.0-8.3); Neutrophils Percent Auto 72.6 % (45-73); Platelet Count 401 X10*3/uL (160-400); Red Blood Count 5.08 X10*6/uL (4.20-5.50); Red Cell Distribution Width 24.9 % (11.0-16.0); White Blood Count 10.3 X10*3/uL (4.8-10.8)
[2021-04-19 18:06] LABS: Alanine Aminotransferase 25 U/L (0-31); Albumin Level 4.2 g/dL (3.5-5.0); Alkaline Phosphatase 106 U/L (39-117); Anion Gap 11 (12-20); Aspartate Amino Transferase 19 U/L (5-31); Bilirubin Total 0.2 mg/dL (0.0-1.0); Blood Urea Nitrogen 6 mg/dL (9-16); Calcium 9.8 mg/dL (8.4-10.2); Carbon Dioxide 27 mmol/L (22-29); Chloride 101 mmol/L (96-108); Estimated Glomerular Filt Rate > 60; Glucose Random 133 mg/dL (60-115); Potassium 4.2 mmol/L (3.3-5.1); Sodium 135 mmol/L (135-145)
[2021-04-19 18:27] LABS: Vitamin D 25-OH Total 31.9 ng/mL (>30)
== END 2021-04-19 15:01 | disposition home or self-care (01) ==
LOC: HO.MAMMO 15:00
PROVIDERS: Internal Medicine Medical Oncology; PCP Nurse Practitioner; Visit Provider Nurse Practitioner
DX: R92.1 Mammographic calcification found on diagnostic imaging of breast (principal); D05.10 Intraductal carcinoma in situ of unspecified breast
CPT/HCPCS: 36415; 77062; 77066; 80053; 82306; 85025

== ENCOUNTER 2021-05-01 11:04 | Inpatient (IN) | payer MEDICAID, SELFPAY ==
[2021-04-20 08:57] VITALS: BMI 26.2
--- NOTE | 2021-04-24 12:24 | ECG_ITS ---
Test Reason : preop Blood Pressure : / mmHG Vent. Rate : 068 BPM Atrial Rate : 068 BPM P-R Int : 132 ms QRS Dur : 090 ms QT Int : 410 ms P-R-T Axes : 070 034 039 degrees QTc Int : 435 ms Normal sinus rhythm Normal ECG When compared with ECG of 24-FEB-2018 13:56, Non-specific change in ST segment in Anterior leads Nonspecific T wave abnormality no longer evident in Anterior leads Referred By: Sally Cantu Electronically Signed By:SLICK ELLIOTT MD
--- NOTE | 2021-04-27 09:29 | HO.ANESPROP2 ---
Documented by User: Sally Cantu NP 04/27/21 09:32 HPI - Anesthesia Eval Consult details Narrative: 50yo F for Hand Assisted Laparoscopic Colon Resection, Poss Open PMFSH Active Problems Active Problems: All Active Problems (Updated 04/24/21 @ 12:41 by Jocelyn Mclaughlin, RN) Anemia (Acute) Serrated polyp of colon (Acute) Cecal polyp (Acute) Nipple discharge (Acute) Family history of breast cancer (Acute) Lobular carcinoma in situ (LCIS) of left breast (Acute) Ductal carcinoma in situ (DCIS) of breast (Acute) Hypertension (Acute) Diabetes mellitus (Acute) Depression (Acute) Breast calcification, left (Acute) Past Medical History Medical History (Updated 04/24/21 @ 12:41 by Jocelyn Mclaughlin, YOAN) Anxiety Breast calcification, left Cecal polyp Depression Diabetes mellitus Ductal carcinoma in situ (DCIS) of breast Elevated cholesterol Family history of breast cancer Hypertension Lobular carcinoma in situ (LCIS) of left breast Nipple discharge Serrated polyp of colon Family History Family History Sister History of breast cancer Family history of problems with anesthesia: No Surgical History Surgical History (Updated 04/20/21 @ 15:41 by Codie Quintero MD) H/O breast surgery H/O colonoscopy History of laparoscopic cholecystectomy History of tubal ligation History of Problems with Anesthesia: No Social History Social History (Updated 04/20/21 @ 15:39 by Gisela Baker CMA) Household Members: Children Household Members Other:: son 18 yrs old Housing: Apartment Are you a primary patient care technician instructor to a significant other at home: No Do you presently have visiting nurse or other home services: Yes ([facility] bid for meds, 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 If so, by whom?: No Are you DNR?: No Advance Directives: No Advance Directives Information Provided: Yes Advance Directives on File: No Recently lost weight without trying: No Patient : No FDLMP: 02/2021 : No Poor oral hygiene: No (teeth) service: No Current occupational status: unemployed Meds Allergies Allergy/AdvReac Type Severity Reaction Status Date / Time No Known Allergies Allergy Verified 05/01/21 07:32 [No Known Allergies*] Home Medications Medication Instructions Recorded Confirmed Last Taken Type atorvastatin 80 mg tablet (Lipitor) 80 mg PO DAILY 05/03/20 04/20/21 Unknown History docusate sodium 100 mg capsule 100 mg PO BID 05/03/20 04/20/21 Unknown History (Colace) insulin lispro protamine-lispro See Rx Instructions .ROUTE .COMPLEX 05/03/20 04/20/21 04/30/21 16:00 History 100 unit/mL (75-25) subcutaneous pen lisinopril 5 mg tablet 5 mg PO DAILY 05/03/20 04/20/21 Unknown History metformin 1,000 mg tablet 1,000 mg PO BID 05/03/20 04/20/21 Unknown History oxcarbazepine 600 mg tablet 600 mg PO BEDTIME 05/03/20 04/20/21 Unknown History quetiapine 100 mg tablet (Seroquel) 100 mg PO DAILY 05/03/20 04/20/21 Unknown History sertraline 100 mg tablet (Zoloft) 200 mg PO DAILY tab 05/03/20 04/20/21 Unknown History trazodone 100 mg tablet 100 mg PO BEDTIME PRN 05/03/20 04/20/21 Unknown History dapagliflozin 5 mg tablet (Farxiga) 1 tab PO QAM 01/22/21 04/20/21 Unknown History paliperidone palmitate 234 mg/1.5 234 mg IM Q4W 02/15/21 04/20/21 Unknown History mL intramuscular syringe (Invega Sustenna) albuterol sulfate 90 mcg/actuation 2 puff INHALATION Q4-6H PRN 04/20/21 04/20/21 Unknown History aerosol inhaler (ProAir HFA) famotidine 20 mg tablet 20 mg PO BID 04/20/21 04/20/21 Unknown History nicotine 21 mg/24 hr daily 1 patch TRANSDERMAL DAILY 04/20/21 04/20/21 Unknown History transdermal patch polyethylene glycol 3350 17 gram 17 g PO DAILY 04/20/21 04/20/21 Unknown History oral powder packet (Miralax) sennosides 8.6 mg-docusate sodium 2 tab PO DAILY 04/20/21 04/20/21 Unknown History 50 mg tablet (Senexon-S) sodium chloride 0.65 % nasal spray 1 spray INTRANASAL BID PRN 04/20/21 04/20/21 Unknown History aerosol (Saline Nasal) Exam Exam Date and Time: April 27, 2021 0929 Height,Weight and Vital Signs: Height 5 ft 4 in Weight 69.2 kg Pertinent Lab Results Pertinent Lab Results: Laboratory Tests 04/19/21 16:45 Blood Type A Positive Antibody Screen NEGATIVE Laboratory Tests 04/19/21 04/19/21 16:49 16:49 WBC 10.3 Hgb 12.0 Hct 39.6 Plt Count 401 H Sodium 135 Potassium 4.2 Chloride 101 Carbon Dioxide 27 BUN 6 L Creatinine 0.78 Narrative Narrative: EKG 04/2021 Vent. Rate : 068 BPM ? ? Atrial Rate : 068 BPM ?? P-R Int : 132 ms? QRS Dur : 090 ms ? ? QT Int : 410 ms ? ? ? P-R-T Axes : 070 034 039 degrees ?? QTc Int : 435 ms ? Normal sinus rhythm Normal ECG When compared with ECG of 24-FEB-2018 13:56, Non-specific change in ST segment in Anterior leads Nonspecific T wave abnormality no longer evident in Anterior leads Assessment and Plan Assessment Anesthesia Assessment: Chart Reviewed Final Anesthetic Review Family History of Problems with Anesthesia: No History of Problems with Anesthesia: No Documented by User: Jamie Bolanos MD 05/01/21 15:12 [facility] Past Medical History Medical History (Updated 04/24/21 @ 12:41 by Jocelyn Mclaughlin RN) Anxiety Breast calcification, left Cecal polyp Depression Diabetes mellitus Ductal carcinoma in situ (DCIS) of breast Elevated cholesterol Family history of breast cancer Hypertension Lobular carcinoma in situ (LCIS) of left breast Nipple discharge Serrated polyp of colon Family History Family History Sister History of breast cancer Surgical History Surgical History (Updated 04/20/21 @ 15:41 by Codie Quintero MD) H/O breast surgery H/O colonoscopy History of laparoscopic cholecystectomy History of tubal ligation Social History Social History (Updated 04/20/21 @ 15:39 by Gisela Baker CMA) Household Members: Children Household Members Other:: son 18 yrs old Housing: Apartment Are you a primary patient care technician instructor to a significant other at home: No Do you presently have visiting nurse or other home services: Yes ([facility] bid for meds, [employer] 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 If so, by whom?: No Are you DNR?: No Advance Directives: No Advance Directives Information Provided: Yes Advance Directives on File: No Recently lost weight without trying: No Patient : No FDLMP: 02/2021 : No Poor oral hygiene: No (teeth) service: No Current occupational status: unemployed Meds Allergies Allergy/AdvReac Type Severity Reaction Status Date / Time No Known Allergies Allergy Verified 05/01/21 07:32 [No Known Allergies*] Home Medications Medication Instructions Recorded Confirmed Last Taken Type atorvastatin 80 mg tablet (Lipitor) 80 mg PO DAILY 05/03/20 04/20/21 Unknown History docusate sodium 100 mg capsule 100 mg PO BID 05/03/20 04/20/21 Unknown History (Colace) insulin lispro protamine-lispro See Rx Instructions .ROUTE .COMPLEX 05/03/20 04/20/21 04/30/21 16:00 History 100 unit/mL (75-25) subcutaneous pen lisinopril 5 mg tablet 5 mg PO DAILY 05/03/20 04/20/21 Unknown History metformin 1,000 mg tablet 1,000 mg PO BID 05/03/20 04/20/21 Unknown History oxcarbazepine 600 mg tablet 600 mg PO BEDTIME 05/03/20 04/20/21 Unknown History quetiapine 100 mg tablet (Seroquel) 100 mg PO DAILY 05/03/20 04/20/21 Unknown History sertraline 100 mg tablet (Zoloft) 200 mg PO DAILY tab 05/03/20 04/20/21 Unknown History trazodone 100 mg tablet 100 mg PO BEDTIME PRN 05/03/20 04/20/21 Unknown History dapagliflozin 5 mg tablet (Farxiga) 1 tab PO QAM 01/22/21 04/20/21 Unknown History paliperidone palmitate 234 mg/1.5 234 mg IM Q4W 02/15/21 04/20/21 Unknown History mL intramuscular syringe (Invega Sustenna) albuterol sulfate 90 mcg/actuation 2 puff INHALATION Q4-6H PRN 04/20/21 04/20/21 Unknown History aerosol inhaler (ProAir HFA) famotidine 20 mg tablet 20 mg PO BID 04/20/21 04/20/21 Unknown History nicotine 21 mg/24 hr daily 1 patch TRANSDERMAL DAILY 04/20/21 04/20/21 Unknown History transdermal patch polyethylene glycol 3350 17 gram 17 g PO DAILY 04/20/21 04/20/21 Unknown History oral powder packet (Miralax) sennosides 8.6 mg-docusate sodium 2 tab PO DAILY 04/20/21 04/20/21 Unknown History 50 mg tablet (Senexon-S) sodium chloride 0.65 % nasal spray 1 spray INTRANASAL BID PRN 04/20/21 04/20/21 Unknown History aerosol (Saline Nasal) Exam Airway Mallampati Class: III TM Dist: >3cm Neck ROM: Full Loose/Missing/Broken Teeth: Yes Heart: rrr Lungs: bl breath sounds Assessment and Plan Assessment Anesthesia Assessment: Anesthesia Plan Discussed Final Anesthetic Review NPO: Yes ASA Class: III Final Preanesthetic Review: Meds/Allgs Chart Reviewed, Consent Obtained/Reviewed and Anes Risks/Benef Reviewed Patient Risk: Intermediate Procedure Risk: Intermediate Anesthetic Plan Anesthetic Plan: GA Disposition: Inp. Admit - Standard Bed
[2021-05-01] VITALS (21 sets, daily range): BP systolic 103–142; BP diastolic 43–74; PULSE 60–78; RESP 14–22; TEMP 36.1–36.8; O2SAT 93–99
[2021-05-01 07:33] LABS: COVID-19 Test Negative (Negative); IDNOW Serial# 55D5AD1C
[2021-05-01] MEDS: Lactated Ringers 1,000 ML 100 ML IVCONT (07:48)
--- NOTE | 2021-05-01 08:19 | MHC.SHP ---
Pre-Procedural Eval Section A Date of Service: 05/01/21 Section B Chief Complaint: Polyp of Colon Details of Present Illness: has serrated polyp in cecum near appendiceal orifice, unresectable by endoscopy Relevant Family History (Specify if Yes): No Relevant Social History: None Present Medications: see Short Stay Collaborative assessment Medical History: Significant History (hx of DCIS, depression, behavioral health issues, DM, HTN) Allergies: Allergies Allergy/AdvReac Type Severity Reaction Status Date / Time No Known Allergies Allergy Verified 05/01/21 07:32 [No Known Allergies*] Review of Systems Sugical H&P ROS: Negative: Constitution, Cardiovascular, Respiratory, Neurological, Hem-Onc, Allergic/Immunologic, Gastrointestinal, Genitourinary, Musculoskeletal, Integumentary, Endocrine and Eyes/Ears/Nose/Throat and Yes, Specify: Psychiatric (hx of depression) Exam Surgical H&P Exam: Normal: HEENT, Normal: Heart, Normal: Lungs, Normal: Extremities, Normal: Abdomen, Normal: Skin and Normal: Neurological Plan Diagnosis/Plan: Unchanged I have reviewed the history and physical and performed a pertinent physical examination on my patient. No changes have occurred unless specified.
[2021-05-01 10:36] LABS: Glucose, Whole Blood 138 mg/dL (60-115)
--- NOTE | 2021-05-01 10:42 | PM.OP ---
Brief Operative Note Date of Service: 05/01/21 <Carmen Glover PA-C - Last Filed: 05/01/21 10:43> Pre-op diagnosis: cecal polyp <Carmen Glover PA-C - Last Filed: 05/01/21 10:43> Post-op diagnosis: same <Carmen Glover PA-C - Last Filed: 05/01/21 10:43> Procedure: hand assisted laparoscopic right colon resection with ileocolic anastomosis <Carmen Glover PA-C - Last Filed: 05/01/21 10:43> Surgeon: SHADI PYLE MD <Carmen Glover PA-C - Last Filed: 05/01/21 10:43> Anesthesia: GETA <Carmen Glover PA-C - Last Filed: 05/01/21 10:43> Was an Hydrogen Plant Operations Manager used for this Procedure?: Yes <Carmen Glover PA-C - Last Filed: 05/01/21 10:43> No <Shadi Pyle MD - Last Filed: 05/01/21 12:32> Hydrogen Plant Operations Manager: Carmen Glover <Carmen Glover PA-C - Last Filed: 05/01/21 10:43> Estimated blood loss (mL): 25 <Carmen Glover PA-C - Last Filed: 05/01/21 10:43> IV fluids (mL): 600 <Carmen Glover PA-C - Last Filed: 05/01/21 10:43> Urine output (mL): 50 <Carmen Glover PA-C - Last Filed: 05/01/21 10:43> Pathology: other (right colon) <Carmen Glover PA-C - Last Filed: 05/01/21 10:43> Condition: stable <Carmen Glover PA-C - Last Filed: 05/01/21 10:43> Disposition: PACU <Carmen Glover PA-C - Last Filed: 05/01/21 10:43>
--- NOTE | 2021-05-01 10:49 | P.OP_ITS ---
Operative Note Operative Note Date of Service: 05/01/21 Narrative: Preop diagnosis: Cecal polyp, serrated Postop diagnosis: As above Procedure: Hand assisted laparoscopic colon resection Surgeon: Manoj Locke MD architectural administrative assistant: MARAH Glover The patient is a 50 year female who had a colonoscopy last February, which showed a sessile serrated polyp in the appendiceal orifice. The endoscopies had stated that this could not be removed completely in because of the sessile nature of the polyp and its location. She was referred to me for resection. the patient had the technique of right colon resection. She was aware of the risks, benefits, and alternatives and had given consent She was brought to the operating room and placed supine on the tableUnder general anesthesia via endotracheal tube. The abdomen was prepped and draped in the usual sterile fashion. A surgical time-out was done. A catheter had been inserted earlier The patient received Cefotan 2 g IV preoperatively . A short incision was made on the skin superiorly using blade 15 and this carried down through the full-thickness of the skin subcutaneous fat with electrocautery. The fascia was incised. The peritoneum was entered. The Deangelo wound retractor was positioned. The GelPort was attached to this and we insufflated through a port through the GelPort to a pressure of 15 mmHg. With laparoscopic visualization using a 10 mm degree scope, I proceeded to then placed a 5/12 mm port in the epigastric area.I then removed the insufflating port and positioned my hand through the GelPort. I inserted a 5 mm scope in the left upper quadrant which would serve as our working port. The patient was placed in the [id number] position. I reflected the loops away from the right side. By doing so was able to expose the cecum and right colon. I divided the ligamentous attachments along the white line of Toldt starting from the cecum all the way superiorly with the LigaSure. I continued with the dissection of these ligaments attachments along the hepatic flexure by dividing the hepatic colic ligaments Using the LigaSure. The patient also had significant adhesions from the liver edge towards the hepatic flexure and we had to divide this with the LigaSure. by traction on the hepatic flexure inferiorly, with the patient in head up position, were able to define the hepatic flexure all the way to the transverse colon and I was able to divide these filmy adhesions until was able to visualize the duodenum. This was the medial limit of our dissection therefore an I divided the rest of the other some adhesions in the retroperitoneum of the right colon. I proceeded to then free up the cecum in its terminal ileum by dividing the ligamentous attachments area as well. I tested the mobilization of the ileum all the way to the transverse colon and once it appeared that we had adequate mobilization for extracorporeal anastomosis, I proceeded to desufflate. I exteriorized the terminal ileum all the way to the transverse colon. I defined are retraction proximally about 15 cm from the terminal ileum. I created a mesenteric window here and divided this with the ALEJANDRO 60 mm stapler. I chose my point of dissection in the proximal transverse colon just before the palpable middle colic vessels. I created a mesenteric window here and divided this as well with a ALEJANDRO 60 mm stapler. I my planned line of incision on the mesentery by the use of electrocautery on the peritoneum. I divided the mesentery using the LigaSure, starting from both distal and proximal to meet just before the ileocolic pedicle. End of the loop colic pedicle by dissecting this. I applied clamps individually on the artery and vein and divided these between clamps. I ligated each of these separately used Dexon 2-0 ties. I observed for hemostasis on the divided mesentery. I had to apply the LigaSure on some oozing areas. Once hemostasis was ensured, I then proceeded to do our anastomosis. I positioned both limbs of the distal ileum and the measures: In a [id number] manner. I opened the apex of each staple line to enter the lumen. I positioned each arm of the ALEJANDRO 60 mm stapler through the lumen at the anti mesenteric border. I locked the stapler in place. I made sure that there was no or mesentery caught between the staple arms. I then fired the stapler to create our [id number] anastomosis. I completed the anastomosis by closing the enterotomy with a TA 60 mm stapler. Placed 2 seromuscular Dexon 3-0 sutures at the crotch of staple line to make sure that there was no tension on the staple line itself. I closed the mesenteric defect with running Dexon 3-0 stitch on the peritoneum of the divided mesentery I examined the staple lines and these all appeared to be a leak. The anastomotic site appeared to be viable without any evidence of ischemia. I irrigated this area. I replaced this back into the peritoneal cavity. I examined the peritoneum again laparoscopically. There was note of good hemostasis There was no other pathology nor any evidence of any bowel injury. Once hemostasis was ensured, I then proceeded to position the omentum to overlie the anastomosis. I desufflated the port sites. I removed the GelPort and the Deangelo wound retractor. I closed the fascia with a running Maxon 1 stitch. I examined the fascial closure laparoscopically and this appeared intact with any bowel caught In the closure. I therefore removed all the ports after this. I irrigated the incision copiously. I closed the skin incisions with skin césar. All incisions were infiltrated with Marcaine 0.5% for postop analgesia. Dressings were applied. The procedure was then completed The patient tolerated theprocedure well. There were no complication noted. Initial fine counts of sponges and instruments were correct. Estimated blood loss was about 25 cc . The patient was then extubated and transferred to the recovery room with stable vital signs. The specimen was sent for immediate gross examination. Initial gross exam by the pathologist did not reveal any obvious lesions in the cecum. I had gone downstairs to the path lab as well after the procedure to examine the specimen.
[2021-05-01] MEDS: fentaNYL citrate/PF 100 MCG/2 ML VIAL 25 MCG IVPUSH ×4 (11:05→11:20)
[2021-05-01] MEDS: oxyCODONE HCl Immed Release 5 MG TABLET 10 MG PO ×2 (11:21→20:24)
[2021-05-01] MEDS: HYDROmorphone HCl 0.5 MG/0.5 ML SYRINGE 0.25 MG IVPUSH ×4 (11:25→11:55)
[2021-05-01] MEDS: 0.9 % Sodium Chloride 1,000 ML 80 ML IVCONT (11:35)
[2021-05-01 14:10] LABS: Glucose, Whole Blood 199 mg/dL (60-115)
--- NOTE | 2021-05-01 15:33 | PHA.MEDREC ---
Pharmacy Consult ? Medication Reconciliation Nursing has completed the medication reconciliation and pharmacy has reviewed.
--- NOTE | 2021-05-01 15:41 | P.EN_ITS ---
Event Note Date of Service: 05/01/21 Event Note: Seen postop Underwent right colon resection earlier Complaints of incisional pain Otherwise not in distress Stable vital signs Abdomen soft Good urine output Continue pain management Clear liquid diet Encouraged to get out of bed Doing well postop Her rattan worker Caitiln Kirkland was updated at [phone]
[2021-05-01 16:38] LABS: Glucose, Whole Blood 170 mg/dL (60-115)
[2021-05-01] MEDS: Morphine Sulfate 2 MG/ML CARTRIDGE 4 MG IVPUSH (17:43)
[2021-05-01] MEDS: Insulin Lispro 100 UNIT/ML 3 ML VIAL SUBCUT ×2 (17:46→20:25)
[2021-05-01 20:11] LABS: Glucose, Whole Blood 157 mg/dL (60-115)
[2021-05-01] MEDS: Docusate Sodium 100 MG CAPSULE PO (20:24)
[2021-05-01] MEDS: Famotidine 20 MG TABLET PO (20:24)
[2021-05-01] MEDS: OXcarbazepine 300 MG TABLET 600 MG PO (20:24)
[2021-05-01] MEDS: Melatonin 3 MG TABLET 6 MG PO (20:48)
[2021-05-01] MEDS: ondansetron HCL 4 MG/2 ML VIAL IVPUSH (21:40)
[2021-05-02] MEDS: 0.9 % Sodium Chloride Flush 3 ML SYRINGE IVFLUSH (00:15)
[2021-05-02] MEDS: 0.9 % Sodium Chloride 1,000 ML 80 ML IVCONT ×3 (00:15→23:40)
[2021-05-02] MEDS: Morphine Sulfate 2 MG/ML CARTRIDGE 4 MG IVPUSH ×4 (02:57→20:43)
[2021-05-02 03:34] VITALS: BP 110/64; PULSE 70; RESP 16; TEMP 36.1; O2SAT 90
[2021-05-02 05:44] LABS: MANUAL DIFF FLAG NO
[2021-05-02 05:50] LABS: Basophils Absolute Auto 0.1 X10*3/uL (0.0-0.2); Basophils Percent Auto 0.5 % (0-2); Eosinophils Absolute Auto 0.1 X10*3/uL (0.0-0.4); Eosinophils Percent Auto 0.5 % (0-4); Hematocrit 36.9 % (37.0-47.0); Hemoglobin 11.3 g/dl (12.0-16.0); Imm Gran Abs Auto 0.05 X10*3/uL (0.00-0.03); Imm Gran Pct Auto 0.4 % (0.0-0.4); Lymphocytes Absolute Auto 1.4 X10*3/uL (1.2-4.9); Lymphocytes Percent Auto 11.5 % (20-40); Mean Corpuscular HGB Conc 30.6 g/dl (31.0-35.0); Mean Corpuscular Hemoglobin 23.9 pg (27.0-33.0); Mean Corpuscular Volume 78.2 fL (80.0-98.0); Mean Platelet Volume 8.8 fL (9.4-12.3); Monocytes Absolute Auto 0.8 X10*3/uL (0.1-1.2); Monocytes Percent Auto 6.2 % (2-11); Neutrophils Absolute Auto 9.8 x10*3/uL (2.0-8.3); Neutrophils Percent Auto 80.9 % (45-73); Platelet Count 336 X10*3/uL (160-400); Red Blood Count 4.72 X10*6/uL (4.20-5.50); Red Cell Distribution Width 23.6 % (11.0-16.0); White Blood Count 12.1 X10*3/uL (4.8-10.8)
[2021-05-02] MEDS: oxyCODONE HCl Immed Release 5 MG TABLET 10 MG PO ×2 (05:56→11:13)
[2021-05-02 06:16] LABS: Anion Gap 14 (12-20); Blood Urea Nitrogen 5 mg/dL (9-16); Calcium 8.7 mg/dL (8.4-10.2); Carbon Dioxide 21 mmol/L (22-29); Chloride 106 mmol/L (96-108); Glucose Random 124 mg/dL (60-115); Potassium 3.9 mmol/L (3.3-5.1); Sodium 137 mmol/L (135-145)
[2021-05-02 06:25] LABS: Creatinine Clr Calc Pharmacy 104.3; Estimated Glomerular Filt Rate > 60
[2021-05-02 06:53] VITALS: BP 114/65; PULSE 72; RESP 18; TEMP 36; O2SAT 93
[2021-05-02 07:10] LABS: Glucose, Whole Blood 126 mg/dL (60-115)
[2021-05-02] MEDS: Nicotine 21 MG PATCH.TD24 TRANSDERMA (07:43)
[2021-05-02] MEDS: Sertraline HCL 100 MG TABLET 200 MG PO (07:44)
[2021-05-02] MEDS: lisinopriL 5 MG TABLET PO (07:44)
[2021-05-02] MEDS: Tamoxifen Citrate 10 MG TABLET 20 MG PO (07:44)
[2021-05-02] MEDS: Docusate Sodium 100 MG CAPSULE PO ×2 (07:44→20:44)
[2021-05-02] MEDS: QUEtiapine Fumarate 100 MG TABLET PO (07:44)
[2021-05-02] MEDS: Famotidine 20 MG TABLET PO ×2 (07:44→20:44)
--- NOTE | 2021-05-02 07:47 | HO.POSTANES ---
Post Anesthesia Evaluation Post Anesthesia Evaluation Vital Signs: Vital Signs Temp Pulse Resp BP Pulse Ox 05/02/21 06:53 96.8 F 72 18 114/65 93 05/02/21 03:34 96.9 F 70 16 110/64 90 L 05/01/21 23:40 97.4 F 67 16 110/59 L 93 Anesthesia: General Endotracheal-GETA Mental Status: Sedated Pain Control: Satisfactory Nausea/Vomiting: None Hydration: Adequate Anesthesia-Related Issues: No Anes. Related Issues
--- NOTE | 2021-05-02 09:02 | PM.PNGS ---
Subjective Subjective Date of Service: 05/02/21 Interval history: Says she is okay Seems to have had adequate pain control Denies flatus Tolerating clear liquid Physical Exam Vital Signs: Vital Signs: Last Vital Signs Temp 96.8 F 05/02/21 06:53 Pulse 72 05/02/21 06:53 Resp 18 05/02/21 06:53 BP 114/65 05/02/21 06:53 Pulse Ox 93 05/02/21 06:53 BMI result Body Mass Index 26.2 Const: General: comfortable and no acute distress Resp: Effort & Inspection: normal respiratory effort Cardio: Rate: regular rate GI: Inspection: Yes distended Palpation (GI): Soft to palpation, not firm and no guarding Objective Data Active Medications Albuterol Sulfate (Albuterol Sulfate 90 Mcg 8 Gm Inhaler) 2 puff INHALE Q4H PRN PRN Reason: Shortness Of Breath Or Wheezin Atorvastatin Calcium (Atorvastatin Calcium 80 Mg Tablet) 80 mg PO BEDTIME COUNTS INCLUDE 234 BEDS AT THE [facility] Dextrose (Dextrose 50 % 25 Gm/50 Ml Syringe) 25 gm IVPUSH Q15M PRN; Protocol PRN Reason: per Hypoglycemia Standing Ord. Docusate Sodium (Docusate Sodium 100 Mg Capsule) 100 mg PO BID COUNTS INCLUDE 234 BEDS AT THE [facility] Last Admin: 05/02/21 07:44 Dose: 100 mg Documented by: NEY Famotidine (Famotidine 20 Mg Tablet) 20 mg PO BID COUNTS INCLUDE 234 BEDS AT THE [facility] Last Admin: 05/02/21 07:44 Dose: 20 mg Documented by: NEY Glucose (Glucose Gel 15 Gm Gel..Gram.) 15 gm PO Q15M PRN; Protocol PRN Reason: per Hypoglycemia Standing Ord. Heparin Sodium (Porcine) (Heparin Sodium,Porcine 5,000 Unit/Ml Vial) 5,000 unit SUBCUT Q8H COUNTS INCLUDE 234 BEDS AT THE [facility] Sodium Chloride (Ns) 1,000 mls @ 80 mls/hr IVCONT .[id number] COUNTS INCLUDE 234 BEDS AT THE [facility] Last Admin: 05/02/21 00:15 Dose: 80 mls/hr Documented by: RADHAMES Acetaminophen (Ofirmev) 1,000 mg in 100 mls @ 400 mls/hr IV Q6H COUNTS INCLUDE 234 BEDS AT THE [facility] Last Infusion: 05/02/21 06:29 Dose: 0 mls/hr Documented by: RADHAMES Insulin Human Lispro (Insulin Lispro 100 Unit/Ml 3 Ml Vial) 0 unit SUBCUT QIDACHS COUNTS INCLUDE 234 BEDS AT THE [facility]; Protocol Last Admin: 05/02/21 07:45 Dose: Not Given Documented by: NEY Non-Admin Reason: No Insulin Coverage Lisinopril (Lisinopril 5 Mg Tablet) 5 mg PO DAILY COUNTS INCLUDE 234 BEDS AT THE [facility]; Protocol Last Admin: 05/02/21 07:44 Dose: 5 mg Documented by: NEY Melatonin (Melatonin 3 Mg Tablet) 6 mg PO BEDTIME PRN PRN Reason: Insomnia Last Admin: 05/01/21 20:48 Dose: 6 mg Documented by: RADHAMES Morphine Sulfate (Morphine Sulfate 2 Mg/Ml Cartridge) 4 mg IVPUSH Q4H PRN; Protocol PRN Reason: Pain, Severe (Pain Scale 7-10) Last Admin: 05/02/21 08:03 Dose: 4 mg Documented by: NEY Nicotine (Nicotine 21 Mg Patch.Td24) 21 mg TRANSDERMA DAILY COUNTS INCLUDE 234 BEDS AT THE [facility] Last Admin: 05/02/21 07:43 Dose: 21 mg Documented by: NEY Ondansetron HCl (Ondansetron Hcl 4 Mg/2 Ml Vial) 4 mg IVPUSH Q8H PRN PRN Reason: Nausea and Vomiting Last Admin: 05/01/21 21:40 Dose: 4 mg Documented by: RADHAMES Oxcarbazepine (Oxcarbazepine 300 Mg Tablet) 600 mg PO BEDTIME COUNTS INCLUDE 234 BEDS AT THE [facility] Last Admin: 05/01/21 20:24 Dose: 600 mg Documented by: RADHAMES Oxycodone HCl (Oxycodone Hcl Immed Release 5 Mg Tablet) 10 mg PO Q4H PRN PRN Reason: Pain, Severe (Pain Scale 7-10) Last Admin: 05/02/21 05:56 Dose: 10 mg Documented by: RADHAMES Oxycodone HCl (Oxycodone Hcl Immed Release 5 Mg Tablet) 5 mg PO Q4H PRN PRN Reason: Pain, Moderate (Pain Scale 4-6 Quetiapine Fumarate (Quetiapine Fumarate 100 Mg Tablet) 100 mg PO DAILY COUNTS INCLUDE 234 BEDS AT THE [facility] Last Admin: 05/02/21 07:44 Dose: 100 mg Documented by: NEY Sertraline HCl (Sertraline Hcl 100 Mg Tablet) 200 mg PO DAILY COUNTS INCLUDE 234 BEDS AT THE [facility] Last Admin: 05/02/21 07:44 Dose: 200 mg Documented by: NEY Sodium Chloride (0.9 % Sodium Chloride Flush 3 Ml Syringe) 3 ml IVFLUSH QSHIFT COUNTS INCLUDE 234 BEDS AT THE [facility] Last Admin: 05/02/21 07:46 Dose: Not Given Documented by: NEY Non-Admin Reason: IV Running Sodium Chloride (Sodium Chloride 0.65 % Nasal 44 Ml Sprbtl) 1 spray NOSTRIL-B BID PRN PRN Reason: Nasal Congestion Tamoxifen Citrate (Tamoxifen Citrate 10 Mg Tablet) 20 mg PO DAILY COUNTS INCLUDE 234 BEDS AT THE [facility] Last Admin: 05/02/21 07:44 Dose: 20 mg Documented by: NEY Labs CBC & Chem 7: 05/02/21 05:21 05/02/21 05:21 Labs: Laboratory Results - last 24 hr 05/01/21 05/01/21 05/01/21 07:25 14:06 16:35 MCV MCH MCHC RDW Plt Count MPV Immature Gran % (Auto) Neut % (Auto) Lymph % (Auto) [place] % (Auto) Eos % (Auto) Baso % (Auto) Lymph # (Auto) [place] # (Auto) Eos # (Auto) Baso # (Auto) Abs Immat Gran (auto) Absolute Neuts (auto) Absolute Nucleated RBC Nucleated RBC % (auto) Anion Gap Estim Creat Clear Calc Estimated GFR POC Glucose 138 H 199 H 170 H Random Glucose Calcium 05/01/21 05/02/21 05/02/21 20:07 05:21 05:21 MCV 78.2 L MCH 23.9 L MCHC 30.6 L RDW 23.6 H Plt Count 336 MPV 8.8 L Immature Gran % (Auto) 0.4 Neut % (Auto) 80.9 H Lymph % (Auto) 11.5 L [place] % (Auto) 6.2 Eos % (Auto) 0.5 Baso % (Auto) 0.5 Lymph # (Auto) 1.4 [place] # (Auto) 0.8 Eos # (Auto) 0.1 Baso # (Auto) 0.1 Abs Immat Gran (auto) 0.05 H Absolute Neuts (auto) 9.8 H Absolute Nucleated RBC 0.000 Nucleated RBC % (auto) 0.0 Anion Gap 14 Estim Creat Clear Calc 104.3 Estimated GFR > 60 POC Glucose 157 H Random Glucose 124 H Calcium 8.7 D 05/02/21 06:56 MCV MCH MCHC RDW Plt Count MPV Immature Gran % (Auto) Neut % (Auto) Lymph % (Auto) [place] % (Auto) Eos % (Auto) Baso % (Auto) Lymph # (Auto) [place] # (Auto) Eos # (Auto) Baso # (Auto) Abs Immat Gran (auto) Absolute Neuts (auto) Absolute Nucleated RBC Nucleated RBC % (auto) Anion Gap Estim Creat Clear Calc Estimated GFR POC Glucose 126 H Random Glucose Calcium Procedures Date of Service Date of Service: 05/02/21 Progress Note: A&P Assessment and plan (1) Serrated polyp of colon: Status: Acute Assessment and Plan: Status post right colon resection Okay to DC Dsouza Out of bed to chair Encourage ambulation Incentive spirometry Pain management Clear liquids for now until of GI functions Fall Risk Details Current Medications: Current Medications Albuterol Sulfate (Albuterol Sulfate 90 Mcg 8 Gm Inhaler) 2 puff INHALE Q4H PRN PRN Reason: Shortness Of Breath Or Wheezin Atorvastatin Calcium (Atorvastatin Calcium 80 Mg Tablet) 80 mg PO BEDTIME COUNTS INCLUDE 234 BEDS AT THE [facility] Dextrose (Dextrose 50 % 25 Gm/50 Ml Syringe) 25 gm IVPUSH Q15M PRN; Protocol PRN Reason: per Hypoglycemia Standing Ord. Docusate Sodium (Docusate Sodium 100 Mg Capsule) 100 mg PO BID COUNTS INCLUDE 234 BEDS AT THE [facility] Last Admin: 05/02/21 07:44 Dose: 100 mg Documented by: Famotidine (Famotidine 20 Mg Tablet) 20 mg PO BID COUNTS INCLUDE 234 BEDS AT THE [facility] Last Admin: 05/02/21 07:44 Dose: 20 mg Documented by: Glucose (Glucose Gel 15 Gm Gel..Gram.) 15 gm PO Q15M PRN; Protocol PRN Reason: per Hypoglycemia Standing Ord. Heparin Sodium (Porcine) (Heparin Sodium,Porcine 5,000 Unit/Ml Vial) 5,000 unit SUBCUT Q8H COUNTS INCLUDE 234 BEDS AT THE [facility] Sodium Chloride (Ns) 1,000 mls @ 80 mls/hr IVCONT .[id number] COUNTS INCLUDE 234 BEDS AT THE [facility] Last Admin: 05/02/21 00:15 Dose: 80 mls/hr Documented by: Acetaminophen (Ofirmev) 1,000 mg in 100 mls @ 400 mls/hr IV Q6H COUNTS INCLUDE 234 BEDS AT THE [facility] Last Infusion: 05/02/21 06:29 Dose: Infused Documented by: Insulin Human Lispro (Insulin Lispro 100 Unit/Ml 3 Ml Vial) 0 unit SUBCUT QIDACHS COUNTS INCLUDE 234 BEDS AT THE [facility]; Protocol Last Admin: 05/02/21 07:45 Dose: Not Given Documented by: Lisinopril (Lisinopril 5 Mg Tablet) 5 mg PO DAILY COUNTS INCLUDE 234 BEDS AT THE [facility]; Protocol Last Admin: 05/02/21 07:44 Dose: 5 mg Documented by: Melatonin (Melatonin 3 Mg Tablet) 6 mg PO BEDTIME PRN PRN Reason: Insomnia Last Admin: 05/01/21 20:48 Dose: 6 mg Documented by: Morphine Sulfate (Morphine Sulfate 2 Mg/Ml Cartridge) 4 mg IVPUSH Q4H PRN; Protocol PRN Reason: Pain, Severe (Pain Scale 7-10) Last Admin: 05/02/21 08:03 Dose: 4 mg Documented by: Nicotine (Nicotine 21 Mg Patch.Td24) 21 mg TRANSDERMA DAILY COUNTS INCLUDE 234 BEDS AT THE [facility] Last Admin: 05/02/21 07:43 Dose: 21 mg Documented by: Ondansetron HCl (Ondansetron Hcl 4 Mg/2 Ml Vial) 4 mg IVPUSH Q8H PRN PRN Reason: Nausea and Vomiting Last Admin: 05/01/21 21:40 Dose: 4 mg Documented by: Oxcarbazepine (Oxcarbazepine 300 Mg Tablet) 600 mg PO BEDTIME COUNTS INCLUDE 234 BEDS AT THE [facility] Last Admin: 05/01/21 20:24 Dose: 600 mg Documented by: Oxycodone HCl (Oxycodone Hcl Immed Release 5 Mg Tablet) 10 mg PO Q4H PRN PRN Reason: Pain, Severe (Pain Scale 7-10) Last Admin: 05/02/21 05:56 Dose: 10 mg Documented by: Oxycodone HCl (Oxycodone Hcl Immed Release 5 Mg Tablet) 5 mg PO Q4H PRN PRN Reason: Pain, Moderate (Pain Scale 4-6 Quetiapine Fumarate (Quetiapine Fumarate 100 Mg Tablet) 100 mg PO DAILY COUNTS INCLUDE 234 BEDS AT [facility] Last Admin: 05/02/21 07:44 Dose: 100 mg Documented by: Sertraline HCl (Sertraline Hcl 100 Mg Tablet) 200 mg PO DAILY COUNTS INCLUDE 234 BEDS AT THE [facility] Last Admin: 05/02/21 07:44 Dose: 200 mg Documented by: Sodium Chloride (0.9 % Sodium Chloride Flush 3 Ml Syringe) 3 ml IVFLUSH QSHIFT COUNTS INCLUDE 234 BEDS AT THE [facility] Last Admin: 05/02/21 07:46 Dose: Not Given Documented by: Sodium Chloride (Sodium Chloride 0.65 % Nasal 44 Ml Sprbtl) 1 spray NOSTRIL-B BID PRN PRN Reason: Nasal Congestion Tamoxifen Citrate (Tamoxifen Citrate 10 Mg Tablet) 20 mg PO DAILY [facility] Last Admin: 05/02/21 07:44 Dose: 20 mg Documented by: Time Spent With Patient Time: Total time spent is greater than 50% in coordination of care (as documented) at patient's floor/unit and/or counseling patient: Time with patient: 15 - 24 minutes Quality Stroke Does the patient have a stroke diagnosis?: No VTE Prior VTE?: No VTE Risk Level:: Medical - moderate - high VTE Device Contraindication: N/A - Device Ordered VTE Drug Contraindication: N/A - Med Ordered
--- NOTE | 2021-05-02 10:22 | PC.NURSE ---
Lianna removed at 0930. DTV #1 at 1530. Patient aware to use call [facility] to get oob to br. Patient in recliner. Ambulated in [place] @ 100 feet.
[2021-05-02 11:05] VITALS: BP 119/69; PULSE 73; RESP 16; TEMP 36.6; O2SAT 98
[2021-05-02] MEDS: Heparin Sodium,Porcine 5,000 UNIT/ML VIAL 5000 UNIT SUBCUT ×2 (11:14→20:44)
[2021-05-02 11:23] LABS: Glucose, Whole Blood 251 mg/dL (60-115)
[2021-05-02] MEDS: Insulin Lispro 100 UNIT/ML 3 ML VIAL SUBCUT ×2 (11:33→17:10)
[2021-05-02 15:49] VITALS: BP 116/66; PULSE 76; RESP 18; TEMP 35.8; O2SAT 99
[2021-05-02 16:35] LABS: Glucose, Whole Blood 170 mg/dL (60-115)
[2021-05-02 19:36] VITALS: BP 118/67; PULSE 69; RESP 18; TEMP 36.5; O2SAT 97
[2021-05-02 20:06] LABS: Glucose, Whole Blood 149 mg/dL (60-115)
[2021-05-02] MEDS: OXcarbazepine 300 MG TABLET 600 MG PO (20:43)
[2021-05-02] MEDS: Melatonin 3 MG TABLET 6 MG PO (20:44)
[2021-05-02] MEDS: Atorvastatin Calcium 80 MG TABLET PO (20:44)
--- NOTE | 2021-05-02 23:22 | PC.NURSE ---
Hung patients 2300 IV Tylenol and was flagged that patients is over the recommended dose by 1,533.33mg. Stopped Tylenol and sent a text to Dr Shaffer who said to give it. IV Tylenol restarted. Will continue to monitor.
[2021-05-03] VITALS (7 sets, daily range): BP systolic 118–138; BP diastolic 58–76; PULSE 69–77; RESP 16–20; TEMP 36.2–36.8; O2SAT 90–95
[2021-05-03] MEDS: oxyCODONE HCl Immed Release 5 MG TABLET PO ×2 (00:40→20:51)
[2021-05-03] MEDS: Morphine Sulfate 2 MG/ML CARTRIDGE 4 MG IVPUSH ×2 (02:40→11:38)
[2021-05-03] MEDS: Heparin Sodium,Porcine 5,000 UNIT/ML VIAL 5000 UNIT SUBCUT ×3 (03:00→17:32)
[2021-05-03 07:45] LABS: Glucose, Whole Blood 177 mg/dL (60-115)
--- NOTE | 2021-05-03 08:29 | P.PNGS_ITS ---
Subjective Subjective Date of Service: 05/03/21 <Carmen Glover PA-C - Last Filed: 05/03/21 08:31> 05/03/21 <Manoj Locke MD - Last Filed: 05/03/21 09:03> Interval history: C/o nausea and bloating. Has been OOB minimally. Denies flatus. <Carmen Glover PA-C - Last Filed: 05/03/21 08:31> Physical Exam Vital Signs: Vital Signs: Last Vital Signs Temp 97.6 F 05/03/21 07:52 Pulse 69 05/03/21 07:52 Resp 19 05/03/21 07:52 BP 124/72 05/03/21 07:52 Pulse Ox 95 05/03/21 07:52 BMI result Body Mass Index 26.2 <Carmen Glover PA-C - Last Filed: 05/03/21 08:31> Const: General: comfortable, no acute distress and alert <Carmen Glover PA-C - Last Filed: 05/03/21 08:31> Orientation/consciousness: patient oriented x3 <Carmen Glover PA-C - Last Filed: 05/03/21 08:31> Resp: Effort & Inspection: normal respiratory effort <Carmen Glover PA-C - Last Filed: 05/03/21 08:31> GI: Inspection: Yes distended and Yes incision (clean) <Carmen Glover PA-C - Last Filed: 05/03/21 08:31> Palpation (GI): Soft to palpation, Tenderness to palpation present (GI) and no guarding <Carmen Glover PA-C - Last Filed: 05/03/21 08:31> Percussion: Yes normal to percussion <Carmen Glover PA-C - Last Filed: 05/03/21 08:31> Skin: General skin exam: no rashes or lesions noted <ABHINAV Mccray Last Filed: 05/03/21 08:31> Neuro: General: patient oriented x3 <ABHINAV Mccray Last Filed: 05/03/21 08:31> Extrem: General: Yes no clubbing, cyanosis or edema <Carmen Glover PA-C - Last Filed: 05/03/21 08:31> Objective Data Active Medications Albuterol Sulfate (Albuterol Sulfate 90 Mcg 8 Gm Inhaler) 2 puff INHALE Q4H PRN PRN Reason: Shortness Of Breath Or Wheezin Atorvastatin Calcium (Atorvastatin Calcium 80 Mg Tablet) 80 mg PO BEDTIME [facility] Last Admin: 05/02/21 20:44 Dose: 80 mg Documented by: HA Dextrose (Dextrose 50 % 25 Gm/50 Ml Syringe) 25 gm IVPUSH Q15M PRN; Protocol PRN Reason: per Hypoglycemia Standing Ord. Docusate Sodium (Docusate Sodium 100 Mg Capsule) 100 mg PO BID [facility] Last Admin: 05/02/21 20:44 Dose: 100 mg Documented by: HA Famotidine (Famotidine 20 Mg Tablet) 20 mg PO BID [facility] Last Admin: 05/02/21 20:44 Dose: 20 mg Documented by: HA Glucose (Glucose Gel 15 Gm Gel..Gram.) 15 gm PO Q15M PRN; Protocol PRN Reason: per Hypoglycemia Standing Ord. Heparin Sodium (Porcine) (Heparin Sodium,Porcine 5,000 Unit/Ml Vial) 5,000 unit SUBCUT Q8H [facility] Last Admin: 05/03/21 03:00 Dose: 5,000 unit Documented by: HA Sodium Chloride (Ns) 1,000 mls @ 80 mls/hr IVCONT .[id number] [facility] Last Admin: 05/02/21 23:40 Dose: 80 mls/hr Documented by: HA Acetaminophen (Ofirmev) 1,000 mg in 100 mls @ 400 mls/hr IV Q6H [facility] Last Infusion: 05/03/21 05:20 Dose: 0 mls/hr Documented by: HA Insulin Human Lispro (Insulin Lispro 100 Unit/Ml 3 Ml Vial) 0 unit SUBCUT QIDACHS [facility]; Protocol Last Admin: 05/02/21 22:17 Dose: Not Given Documented by: HA Non-Admin Reason: No Insulin Coverage Lisinopril (Lisinopril 5 Mg Tablet) 5 mg PO DAILY [facility]; Protocol Last Admin: 05/02/21 07:44 Dose: 5 mg Documented by: NEY Melatonin (Melatonin 3 Mg Tablet) 6 mg PO BEDTIME PRN PRN Reason: Insomnia Last Admin: 05/02/21 20:44 Dose: 6 mg Documented by: HA Morphine Sulfate (Morphine Sulfate 2 Mg/Ml Cartridge) 4 mg IVPUSH Q4H PRN; Protocol PRN Reason: Pain, Severe (Pain Scale 7-10) Last Admin: 05/03/21 02:40 Dose: 4 mg Documented by: HA Nicotine (Nicotine 21 Mg Patch.Td24) 21 mg TRANSDERMA DAILY [facility] Last Admin: 05/02/21 07:43 Dose: 21 mg Documented by: NEY Ondansetron HCl (Ondansetron Hcl 4 Mg/2 Ml Vial) 4 mg IVPUSH Q8H PRN PRN Reason: Nausea and Vomiting Last Admin: 05/01/21 21:40 Dose: 4 mg Documented by: RADHAMES Oxcarbazepine (Oxcarbazepine 300 Mg Tablet) 600 mg PO BEDTIME [facility] Last Admin: 05/02/21 20:43 Dose: 600 mg Documented by: HA Oxycodone HCl (Oxycodone Hcl Immed Release 5 Mg Tablet) 10 mg PO Q4H PRN PRN Reason: Pain, Severe (Pain Scale 7-10) Last Admin: 05/02/21 11:13 Dose: 10 mg Documented by: NEY Oxycodone HCl (Oxycodone Hcl Immed Release 5 Mg Tablet) 5 mg PO Q4H PRN PRN Reason: Pain, Moderate (Pain Scale 4-6 Last Admin: 05/03/21 00:40 Dose: 5 mg Documented by: HA Quetiapine Fumarate (Quetiapine Fumarate 100 Mg Tablet) 100 mg PO DAILY [facility] Last Admin: 05/02/21 07:44 Dose: 100 mg Documented by: NEY Sertraline HCl (Sertraline Hcl 100 Mg Tablet) 200 mg PO DAILY [facility] Last Admin: 05/02/21 07:44 Dose: 200 mg Documented by: NEY Sodium Chloride (0.9 % Sodium Chloride Flush 3 Ml Syringe) 3 ml IVFLUSH [facility] Last Admin: 05/03/21 00:20 Dose: Not Given Documented by: HA Non-Admin Reason: IV Running Sodium Chloride (Sodium Chloride 0.65 % Nasal 44 Ml Sprbtl) 1 spray NOSTRIL-B BID PRN PRN Reason: Nasal Congestion Tamoxifen Citrate (Tamoxifen Citrate 10 Mg Tablet) 20 mg PO DAILY [facility] Last Admin: 05/02/21 07:44 Dose: 20 mg Documented by: NEY <Carmen Glover PA-C - Last Filed: 05/03/21 08:31> Labs CBC & Chem 7: : 05/02/21 05:21 05/02/21 05:21 <Carmen Glover PA-C - Last Filed: 05/03/21 08:31> Labs: Laboratory Results - last 24 hr 05/02/21 05/02/21 05/02/21 11:05 15:56 19:39 POC Glucose 251 H 170 H 149 H 05/03/21 07:22 POC Glucose 177 H <Carmen Glover PA-C - Last Filed: 05/03/21 08:31> Procedures Date of Service Date of Service: 05/03/21 <Carmen Glover PA-C - Last Filed: 05/03/21 08:31> Progress Note: A&P Assessment and plan (1) Serrated polyp of colon: Status: Acute <Carmen Glover PA-C - Last Filed: 05/03/21 08:31> (2) Diabetes mellitus: Status: Acute <Carmen Glover PA-C - Last Filed: 05/03/21 08:31> Assessment and Plan: abdomen distended but soft, no guarding rebound, tenderness appropriate to postop status denies flatus likely with postop ileus exam otherwise benign encouraged to ambulate more keep on clear liquids stable vital sign seen and examined independently - agree with MARAH Glover <Manoj Locke MD - Last Filed: 05/03/21 09:03> Plan 60 year old female POD #2 s/p FERNANDO right colectomy for unresectable cecal polyp. She has is having nausea and distention post op without evidence of GI function. VSS. Abd distended and tympantic, appropriate post op tenderness, incision clean. Likely with post op ileus. Will continue clear liquids for now until evidence of return of GI function. Strongly encouraged OOB and ambulation of halls and IS use 10x/hr. Cont IVF, pain control. <Carmen Glover PA-C - Last Filed: 05/03/21 08:31> Fall Risk Details Current Medications: Current Medications Albuterol Sulfate (Albuterol Sulfate 90 Mcg 8 Gm Inhaler) 2 puff INHALE Q4H PRN PRN Reason: Shortness Of Breath Or Wheezin Atorvastatin Calcium (Atorvastatin Calcium 80 Mg Tablet) 80 mg PO BEDTIME [facility] Last Admin: 05/02/21 20:44 Dose: 80 mg Documented by: Dextrose (Dextrose 50 % 25 Gm/50 Ml Syringe) 25 gm IVPUSH Q15M PRN; Protocol PRN Reason: per Hypoglycemia Standing Ord. Docusate Sodium (Docusate Sodium 100 Mg Capsule) 100 mg PO BID [facility] Last Admin: 05/02/21 20:44 Dose: 100 mg Documented by: Famotidine (Famotidine 20 Mg Tablet) 20 mg PO BID [facility] Last Admin: 05/02/21 20:44 Dose: 20 mg Documented by: Glucose (Glucose Gel 15 Gm Gel..Gram.) 15 gm PO Q15M PRN; Protocol PRN Reason: per Hypoglycemia Standing Ord. Heparin Sodium (Porcine) (Heparin Sodium,Porcine 5,000 Unit/Ml Vial) 5,000 unit SUBCUT Q8H [facility] Last Admin: 05/03/21 03:00 Dose: 5,000 unit Documented by: Sodium Chloride (Ns) 1,000 mls @ 80 mls/hr IVCONT .[id number] [facility] Last Admin: 05/02/21 23:40 Dose: 80 mls/hr Documented by: Acetaminophen (Ofirmev) 1,000 mg in 100 mls @ 400 mls/hr IV Q6H [facility] Last Infusion: 05/03/21 05:20 Dose: Infused Documented by: Insulin Human Lispro (Insulin Lispro 100 Unit/Ml 3 Ml Vial) 0 unit SUBCUT QIDACHS [facility]; Protocol Last Admin: 05/02/21 22:17 Dose: Not Given Documented by: Lisinopril (Lisinopril 5 Mg Tablet) 5 mg PO DAILY [facility]; Protocol Last Admin: 05/02/21 07:44 Dose: 5 mg Documented by: Melatonin (Melatonin 3 Mg Tablet) 6 mg PO BEDTIME PRN PRN Reason: Insomnia Last Admin: 05/02/21 20:44 Dose: 6 mg Documented by: Morphine Sulfate (Morphine Sulfate 2 Mg/Ml Cartridge) 4 mg IVPUSH Q4H PRN; Protocol PRN Reason: Pain, Severe (Pain Scale 7-10) Last Admin: 05/03/21 02:40 Dose: 4 mg Documented by: Nicotine (Nicotine 21 Mg Patch.Td24) 21 mg TRANSDERMA DAILY [facility] Last Admin: 05/02/21 07:43 Dose: 21 mg Documented by: Ondansetron HCl (Ondansetron Hcl 4 Mg/2 Ml Vial) 4 mg IVPUSH Q8H PRN PRN Reason: Nausea and Vomiting Last Admin: 05/01/21 21:40 Dose: 4 mg Documented by: Oxcarbazepine (Oxcarbazepine 300 Mg Tablet) 600 mg PO BEDTIME [facility] Last Admin: 05/02/21 20:43 Dose: 600 mg Documented by: Oxycodone HCl (Oxycodone Hcl Immed Release 5 Mg Tablet) 10 mg PO Q4H PRN PRN Reason: Pain, Severe (Pain Scale 7-10) Last Admin: 05/02/21 11:13 Dose: 10 mg Documented by: Oxycodone HCl (Oxycodone Hcl Immed Release 5 Mg Tablet) 5 mg PO Q4H PRN PRN Reason: Pain, Moderate (Pain Scale 4-6 Last Admin: 05/03/21 00:40 Dose: 5 mg Documented by: Quetiapine Fumarate (Quetiapine Fumarate 100 Mg Tablet) 100 mg PO DAILY [facility] Last Admin: 05/02/21 07:44 Dose: 100 mg Documented by: Sertraline HCl (Sertraline Hcl 100 Mg Tablet) 200 mg PO DAILY [facility] Last Admin: 05/02/21 07:44 Dose: 200 mg Documented by: Sodium Chloride (0.9 % Sodium Chloride Flush 3 Ml Syringe) 3 ml IVFLUSH QSHIFT [facility] Last Admin: 05/03/21 00:20 Dose: Not Given Documented by: Sodium Chloride (Sodium Chloride 0.65 % Nasal 44 Ml Sprbtl) 1 spray NOSTRIL-B BID PRN PRN Reason: Nasal Congestion Tamoxifen Citrate (Tamoxifen Citrate 10 Mg Tablet) 20 mg PO DAILY [facility] Last Admin: 05/02/21 07:44 Dose: 20 mg Documented by: <Carmen Glover PA-C - Last Filed: 05/03/21 08:31> Time Spent With Patient Time: Total time spent is greater than 50% in coordination of care (as documented) at patient's floor/unit and/or counseling patient: <Carmen Glover PA-C - Last Filed: 05/03/21 08:31> Time with patient: 15 - 24 minutes <Carmen Glover PA-C - Last Filed: 05/03/21 08:31> Quality Stroke Does the patient have a stroke diagnosis?: No <Carmen Glover PA-C - Last Filed: 05/03/21 08:31> VTE Prior VTE?: No <Carmen Glover PA-C - Last Filed: 05/03/21 08:31> VTE Risk Level:: Medical - moderate - high <Carmen Glover PA-C - Last Filed: 05/03/21 08:31> VTE Device Contraindication: N/A - Device Ordered <Carmen Glover PA-C - Last Filed: 05/03/21 08:31> VTE Drug Contraindication: N/A - Med Ordered <Carmen Glover PA-C - Last Filed: 05/03/21 08:31>
[2021-05-03] MEDS: Famotidine 20 MG TABLET PO ×2 (09:09→20:50)
[2021-05-03] MEDS: QUEtiapine Fumarate 100 MG TABLET PO (09:09)
[2021-05-03] MEDS: Docusate Sodium 100 MG CAPSULE PO ×2 (09:09→20:50)
[2021-05-03] MEDS: Sertraline HCL 100 MG TABLET 200 MG PO (09:09)
[2021-05-03] MEDS: Tamoxifen Citrate 10 MG TABLET 20 MG PO (09:09)
[2021-05-03] MEDS: Nicotine 21 MG PATCH.TD24 TRANSDERMA (09:10)
[2021-05-03] MEDS: oxyCODONE HCl Immed Release 5 MG TABLET 10 MG PO (09:10)
[2021-05-03] MEDS: lisinopriL 5 MG TABLET PO (09:10)
[2021-05-03] MEDS: Insulin Lispro 100 UNIT/ML 3 ML VIAL SUBCUT (09:11)
[2021-05-03 11:24] LABS: Glucose, Whole Blood 184 mg/dL (60-115)
[2021-05-03] MEDS: ondansetron HCL 4 MG/2 ML VIAL IVPUSH ×2 (11:38→23:30)
[2021-05-03] MEDS: 0.9 % Sodium Chloride 1,000 ML 80 ML IVCONT (12:37)
[2021-05-03 15:53] LABS: Glucose, Whole Blood 189 mg/dL (60-115)
--- NOTE | 2021-05-03 17:17 | PM.EVENT ---
Event Note Date of Service: 05/03/21 Event Note: still distended denies flatus nauseous, no vomitting abd soft, benign as per nurse - pt does not get out of bed much encourage to ambulate more hold of on NGT insertion for now
[2021-05-03 19:52] LABS: Glucose, Whole Blood 162 mg/dL (60-115)
[2021-05-03] MEDS: Melatonin 3 MG TABLET 6 MG PO (20:50)
[2021-05-03] MEDS: OXcarbazepine 300 MG TABLET 600 MG PO (20:50)
[2021-05-03] MEDS: Atorvastatin Calcium 80 MG TABLET PO (20:50)
[2021-05-04] MEDS: 0.9 % Sodium Chloride 1,000 ML 80 ML IVCONT ×2 (02:30→14:34)
[2021-05-04] MEDS: oxyCODONE HCl Immed Release 5 MG TABLET PO ×2 (02:30→09:18)
[2021-05-04] MEDS: Heparin Sodium,Porcine 5,000 UNIT/ML VIAL 5000 UNIT SUBCUT ×3 (02:30→19:52)
[2021-05-04] MEDS: traZODone HCL 100 MG TABLET PO (02:42)
[2021-05-04 03:50] VITALS: BP 136/71; PULSE 70; RESP 18; TEMP 36.9; O2SAT 91
[2021-05-04 07:34] LABS: Glucose, Whole Blood 150 mg/dL (60-115)
[2021-05-04 07:46] VITALS: BP 139/69; PULSE 66; RESP 15; TEMP 36.6; O2SAT 92
[2021-05-04] MEDS: Nicotine 21 MG PATCH.TD24 TRANSDERMA (09:18)
[2021-05-04] MEDS: Docusate Sodium 100 MG CAPSULE PO ×2 (09:18→19:51)
[2021-05-04] MEDS: Sertraline HCL 100 MG TABLET 200 MG PO (09:18)
[2021-05-04] MEDS: lisinopriL 5 MG TABLET PO (09:19)
[2021-05-04] MEDS: Famotidine 20 MG TABLET PO ×2 (09:19→19:51)
[2021-05-04] MEDS: Tamoxifen Citrate 10 MG TABLET 20 MG PO (09:19)
[2021-05-04] MEDS: QUEtiapine Fumarate 100 MG TABLET PO (09:19)
--- NOTE | 2021-05-04 09:40 | PM.PNGS ---
Subjective Subjective Date of Service: 05/07/21 Interval history: denies flatus still distended says she had vomited last night small amounts pain level better today Physical Exam Vital Signs: Vital Signs: Last Vital Signs Temp 97.8 F 05/04/21 07:46 Pulse 66 05/04/21 07:46 Resp 15 05/04/21 07:46 BP 139/69 05/04/21 07:46 Pulse Ox 92 05/04/21 07:46 BMI result Body Mass Index 26.2 Const: General: comfortable and no acute distress Resp: Effort & Inspection: normal respiratory effort Cardio: Rate: regular rate GI: Other: distended but soft, no guarding no rebound, and incisions clean and dry Objective Data Active Medications Albuterol Sulfate (Albuterol Sulfate 90 Mcg 8 Gm Inhaler) 2 puff INHALE Q4H PRN PRN Reason: Shortness Of Breath Or Wheezin Atorvastatin Calcium (Atorvastatin Calcium 80 Mg Tablet) 80 mg PO BEDTIME [facility] Last Admin: 05/03/21 20:50 Dose: 80 mg Documented by: JESSIE Dextrose (Dextrose 50 % 25 Gm/50 Ml Syringe) 25 gm IVPUSH Q15M PRN; Protocol PRN Reason: per Hypoglycemia Standing Ord. Docusate Sodium (Docusate Sodium 100 Mg Capsule) 100 mg PO BID [facility] Last Admin: 05/03/21 20:50 Dose: 100 mg Documented by: JESSIE Famotidine (Famotidine 20 Mg Tablet) 20 mg PO BID [facility] Last Admin: 05/03/21 20:50 Dose: 20 mg Documented by: JESSIE Glucose (Glucose Gel 15 Gm Gel..Gram.) 15 gm PO Q15M PRN; Protocol PRN Reason: per Hypoglycemia Standing Ord. Heparin Sodium (Porcine) (Heparin Sodium,Porcine 5,000 Unit/Ml Vial) 5,000 unit SUBCUT Q8H [facility] Last Admin: 05/04/21 02:30 Dose: 5,000 unit Documented by: JESSIE Sodium Chloride (Ns) 1,000 mls @ 80 mls/hr IVCONT .[id number] [facility] Last Admin: 05/04/21 02:30 Dose: 80 mls/hr Documented by: JESSIE Acetaminophen (Ofirmev) 1,000 mg in 100 mls @ 400 mls/hr IV Q6H [facility] Last Infusion: 05/04/21 05:58 Dose: 0 mls/hr Documented by: JESSIE Promethazine HCl 12.5 mg/ (Sodium Chloride) 50.5 mls @ 202 mls/hr IV Q6H PRN PRN Reason: Nausea and Vomiting Last Infusion: 05/03/21 18:05 Dose: 0 mls/hr Documented by: JESSIE Insulin Human Lispro (Insulin Lispro 100 Unit/Ml 3 Ml Vial) 0 unit SUBCUT QIDACHS [facility]; Protocol Last Admin: 05/04/21 08:10 Dose: Not Given Documented by: BRENDA Non-Admin Reason: No Insulin Coverage Lisinopril (Lisinopril 5 Mg Tablet) 5 mg PO DAILY [facility]; Protocol Last Admin: 05/03/21 09:10 Dose: 5 mg Documented by: NEY Melatonin (Melatonin 3 Mg Tablet) 6 mg PO BEDTIME PRN PRN Reason: Insomnia Last Admin: 05/03/21 20:50 Dose: 6 mg Documented by: JESSIE Morphine Sulfate (Morphine Sulfate 2 Mg/Ml Cartridge) 4 mg IVPUSH Q4H PRN; Protocol PRN Reason: Pain, Severe (Pain Scale 7-10) Last Admin: 05/03/21 11:38 Dose: 4 mg Documented by: NEY Nicotine (Nicotine 21 Mg Patch.Td24) 21 mg TRANSDERMA DAILY [facility] Last Admin: 05/03/21 09:10 Dose: 21 mg Documented by: NEY Ondansetron HCl (Ondansetron Hcl 4 Mg/2 Ml Vial) 4 mg IVPUSH Q8H PRN PRN Reason: Nausea and Vomiting Last Admin: 05/03/21 23:30 Dose: 4 mg Documented by: JESSIE Oxcarbazepine (Oxcarbazepine 300 Mg Tablet) 600 mg PO BEDTIME [facility] Last Admin: 05/03/21 20:50 Dose: 600 mg Documented by: JESSIE Oxycodone HCl (Oxycodone Hcl Immed Release 5 Mg Tablet) 10 mg PO Q4H PRN PRN Reason: Pain, Severe (Pain Scale 7-10) Last Admin: 05/03/21 09:10 Dose: 10 mg Documented by: NEY Oxycodone HCl (Oxycodone Hcl Immed Release 5 Mg Tablet) 5 mg PO Q4H PRN PRN Reason: Pain, Moderate (Pain Scale 4-6 Last Admin: 05/04/21 02:30 Dose: 5 mg Documented by: JESSIE Quetiapine Fumarate (Quetiapine Fumarate 100 Mg Tablet) 100 mg PO DAILY [facility] Last Admin: 05/03/21 09:09 Dose: 100 mg Documented by: NEY Sertraline HCl (Sertraline Hcl 100 Mg Tablet) 200 mg PO DAILY [facility] Last Admin: 05/03/21 09:09 Dose: 200 mg Documented by: NEY Sodium Chloride (0.9 % Sodium Chloride Flush 3 Ml Syringe) 3 ml IVFLUSH QSHIFT [facility] Last Admin: 05/04/21 09:11 Dose: Not Given Documented by: BRENDA Non-Admin Reason: IV Running Sodium Chloride (Sodium Chloride 0.65 % Nasal 44 Ml Sprbtl) 1 spray NOSTRIL-B BID PRN PRN Reason: Nasal Congestion Tamoxifen Citrate (Tamoxifen Citrate 10 Mg Tablet) 20 mg PO DAILY [facility] Last Admin: 05/03/21 09:09 Dose: 20 mg Documented by: NEY Trazodone HCl (Trazodone Hcl 100 Mg Tablet) 100 mg PO BEDTIME PRN PRN Reason: Insomnia Last Admin: 05/04/21 02:42 Dose: 100 mg Documented by: JESSIE Labs CBC & Chem 7: 05/02/21 05:21 05/05/21 05:49 Labs: Laboratory Results - last 24 hr 05/03/21 05/03/21 05/03/21 11:07 15:35 19:39 POC Glucose 184 H 189 H 162 H 05/04/21 07:14 POC Glucose 150 H Procedures Date of Service Date of Service: 05/04/21 Progress Note: A&P Assessment and plan (1) Serrated polyp of colon: Status: Acute Assessment and Plan: Status post right colon resection has postop ileus encouraged to ambulate more - as per staff, patient does not really get out of bed much exam otherwise benign if with repeated vomiting will put an NG tube looks clinically well otherwise path report shows serrated sessile polyp, no malignancy Fall Risk Details Current Medications: Current Medications Albuterol Sulfate (Albuterol Sulfate 90 Mcg 8 Gm Inhaler) 2 puff INHALE Q4H PRN PRN Reason: Shortness Of Breath Or Wheezin Atorvastatin Calcium (Atorvastatin Calcium 80 Mg Tablet) 80 mg PO BEDTIME [facility] Last Admin: 05/03/21 20:50 Dose: 80 mg Documented by: Dextrose (Dextrose 50 % 25 Gm/50 Ml Syringe) 25 gm IVPUSH Q15M PRN; Protocol PRN Reason: per Hypoglycemia Standing Ord. Docusate Sodium (Docusate Sodium 100 Mg Capsule) 100 mg PO BID [facility] Last Admin: 05/03/21 20:50 Dose: 100 mg Documented by: Famotidine (Famotidine 20 Mg Tablet) 20 mg PO BID [facility] Last Admin: 05/03/21 20:50 Dose: 20 mg Documented by: Glucose (Glucose Gel 15 Gm Gel..Gram.) 15 gm PO Q15M PRN; Protocol PRN Reason: per Hypoglycemia Standing Ord. Heparin Sodium (Porcine) (Heparin Sodium,Porcine 5,000 Unit/Ml Vial) 5,000 unit SUBCUT Q8H [facility] Last Admin: 05/04/21 02:30 Dose: 5,000 unit Documented by: Sodium Chloride (Ns) 1,000 mls @ 80 mls/hr IVCONT .[id number] [facility] Last Admin: 05/04/21 02:30 Dose: 80 mls/hr Documented by: Acetaminophen (Ofirmev) 1,000 mg in 100 mls @ 400 mls/hr IV Q6H [facility] Last Infusion: 05/04/21 05:58 Dose: Infused Documented by: Promethazine HCl 12.5 mg/ (Sodium Chloride) 50.5 mls @ 202 mls/hr IV Q6H PRN PRN Reason: Nausea and Vomiting Last Infusion: 05/03/21 18:05 Dose: Infused Documented by: Insulin Human Lispro (Insulin Lispro 100 Unit/Ml 3 Ml Vial) 0 unit SUBCUT QIDACHS [facility]; Protocol Last Admin: 05/04/21 08:10 Dose: Not Given Documented by: Lisinopril (Lisinopril 5 Mg Tablet) 5 mg PO DAILY [facility]; Protocol Last Admin: 05/03/21 09:10 Dose: 5 mg Documented by: Melatonin (Melatonin 3 Mg Tablet) 6 mg PO BEDTIME PRN PRN Reason: Insomnia Last Admin: 05/03/21 20:50 Dose: 6 mg Documented by: Morphine Sulfate (Morphine Sulfate 2 Mg/Ml Cartridge) 4 mg IVPUSH Q4H PRN; Protocol PRN Reason: Pain, Severe (Pain Scale 7-10) Last Admin: 05/03/21 11:38 Dose: 4 mg Documented by: Nicotine (Nicotine 21 Mg Patch.Td24) 21 mg TRANSDERMA DAILY [facility] Last Admin: 05/03/21 09:10 Dose: 21 mg Documented by: Ondansetron HCl (Ondansetron Hcl 4 Mg/2 Ml Vial) 4 mg IVPUSH Q8H PRN PRN Reason: Nausea and Vomiting Last Admin: 05/03/21 23:30 Dose: 4 mg Documented by: Oxcarbazepine (Oxcarbazepine 300 Mg Tablet) 600 mg PO BEDTIME [facility] Last Admin: 05/03/21 20:50 Dose: 600 mg Documented by: Oxycodone HCl (Oxycodone Hcl Immed Release 5 Mg Tablet) 10 mg PO Q4H PRN PRN Reason: Pain, Severe (Pain Scale 7-10) Last Admin: 05/03/21 09:10 Dose: 10 mg Documented by: Oxycodone HCl (Oxycodone Hcl Immed Release 5 Mg Tablet) 5 mg PO Q4H PRN PRN Reason: Pain, Moderate (Pain Scale 4-6 Last Admin: 05/04/21 02:30 Dose: 5 mg Documented by: Quetiapine Fumarate (Quetiapine Fumarate 100 Mg Tablet) 100 mg PO DAILY [facility] Last Admin: 05/03/21 09:09 Dose: 100 mg Documented by: Sertraline HCl (Sertraline Hcl 100 Mg Tablet) 200 mg PO DAILY [facility] Last Admin: 05/03/21 09:09 Dose: 200 mg Documented by: Sodium Chloride (0.9 % Sodium Chloride Flush 3 Ml Syringe) 3 ml IVFLUSH QSHIFT [facility] Last Admin: 05/04/21 09:11 Dose: Not Given Documented by: Sodium Chloride (Sodium Chloride 0.65 % Nasal 44 Ml Sprbtl) 1 spray NOSTRIL-B BID PRN PRN Reason: Nasal Congestion Tamoxifen Citrate (Tamoxifen Citrate 10 Mg Tablet) 20 mg PO DAILY [facility] Last Admin: 05/03/21 09:09 Dose: 20 mg Documented by: Trazodone HCl (Trazodone Hcl 100 Mg Tablet) 100 mg PO BEDTIME PRN PRN Reason: Insomnia Last Admin: 05/04/21 02:42 Dose: 100 mg Documented by: Time Spent With Patient Time: Total time spent is greater than 50% in coordination of care (as documented) at patient's floor/unit and/or counseling patient: Time with patient: 15 - 24 minutes Quality Stroke Does the patient have a stroke diagnosis?: No VTE Prior VTE?: No VTE Risk Level:: Medical - moderate - high VTE Device Contraindication: N/A - Device Ordered VTE Drug Contraindication: N/A - Med Ordered
[2021-05-04 11:27] LABS: Glucose, Whole Blood 142 mg/dL (60-115)
[2021-05-04 11:51] VITALS: BP 158/85; PULSE 74; RESP 18; TEMP 36.4; O2SAT 94
[2021-05-04 15:51] VITALS: BP 121/67; PULSE 78; RESP 18; TEMP 36.9; O2SAT 92
[2021-05-04 16:05] LABS: Glucose, Whole Blood 131 mg/dL (60-115)
[2021-05-04] MEDS: Atorvastatin Calcium 80 MG TABLET PO (19:51)
[2021-05-04] MEDS: OXcarbazepine 300 MG TABLET 600 MG PO (19:51)
[2021-05-04 19:52] LABS: Glucose, Whole Blood 147 mg/dL (60-115)
[2021-05-04] MEDS: oxyCODONE HCl Immed Release 5 MG TABLET 10 MG PO (19:52)
[2021-05-04] MEDS: Melatonin 3 MG TABLET 6 MG PO (19:52)
[2021-05-04 20:00] VITALS: BP 108/62; PULSE 92; RESP 17; TEMP 36.8; O2SAT 92
[2021-05-04] MEDS: Morphine Sulfate 2 MG/ML CARTRIDGE 4 MG IVPUSH (20:57)
[2021-05-04] MEDS: ondansetron HCL 4 MG/2 ML VIAL IVPUSH (20:57)
[2021-05-04 23:48] VITALS: BP 109/60; PULSE 79; RESP 20; TEMP 36.1; O2SAT 91
[2021-05-05] MEDS: Heparin Sodium,Porcine 5,000 UNIT/ML VIAL 5000 UNIT SUBCUT ×3 (02:07→19:02)
[2021-05-05 03:40] VITALS: BP 111/65; PULSE 72; RESP 20; TEMP 36.2; O2SAT 90
[2021-05-05] MEDS: Morphine Sulfate 2 MG/ML CARTRIDGE 4 MG IVPUSH ×3 (03:53→21:40)
[2021-05-05] MEDS: 0.9 % Sodium Chloride 1,000 ML 80 ML IVCONT ×2 (04:52→16:38)
[2021-05-05 06:54] LABS: Anion Gap 15 (12-20); Blood Urea Nitrogen 6 mg/dL (9-16); Calcium 8.7 mg/dL (8.4-10.2); Carbon Dioxide 24 mmol/L (22-29); Chloride 105 mmol/L (96-108); Creatinine Clr Calc Pharmacy 105.9; Estimated Glomerular Filt Rate > 60; Glucose Fasting 112 mg/dL (60-99); Potassium 3.5 mmol/L (3.3-5.1); Sodium 140 mmol/L (135-145)
[2021-05-05 07:41] VITALS: BP 122/59; PULSE 78; RESP 20; TEMP 36.4; O2SAT 93
[2021-05-05 08:00] LABS: Glucose, Whole Blood 108 mg/dL (60-115)
[2021-05-05] MEDS: Sertraline HCL 100 MG TABLET 200 MG PO (09:36)
[2021-05-05] MEDS: Docusate Sodium 100 MG CAPSULE PO ×2 (09:36→21:40)
[2021-05-05] MEDS: QUEtiapine Fumarate 100 MG TABLET PO (09:36)
[2021-05-05] MEDS: Tamoxifen Citrate 10 MG TABLET 20 MG PO (09:37)
[2021-05-05] MEDS: lisinopriL 5 MG TABLET PO (09:37)
[2021-05-05] MEDS: Famotidine 20 MG TABLET PO ×2 (09:37→21:40)
[2021-05-05] MEDS: Nicotine 21 MG PATCH.TD24 TRANSDERMA (09:37)
[2021-05-05] MEDS: 0.9 % Sodium Chloride Flush 3 ML SYRINGE IVFLUSH ×3 (09:37→21:41)
[2021-05-05 11:15] VITALS: BP 123/67; PULSE 93; RESP 13; TEMP 36.8; O2SAT 93
[2021-05-05 11:16] LABS: Glucose, Whole Blood 134 mg/dL (60-115)
--- NOTE | 2021-05-05 14:53 | P.PNGS_ITS ---
Subjective Subjective Date of Service: 05/05/21 Interval history: feeling hungry says passed some gas no bowel movement Physical Exam Vital Signs: Vital Signs: Last Vital Signs Temp 98.3 F 05/05/21 11:15 Pulse 93 05/05/21 11:15 Resp 13 05/05/21 11:15 BP 123/67 05/05/21 11:15 Pulse Ox 93 05/05/21 11:15 BMI result Body Mass Index 26.2 GI: Other: abdo distended but soft, nontender incsions look good. very good normal bowel sounds Objective Data Active Medications Albuterol Sulfate (Albuterol Sulfate 90 Mcg 8 Gm Inhaler) 2 puff INHALE Q4H PRN PRN Reason: Shortness Of Breath Or Wheezin Atorvastatin Calcium (Atorvastatin Calcium 80 Mg Tablet) 80 mg PO BEDTIME [facility] Last Admin: 05/04/21 19:51 Dose: 80 mg Documented by: NAHID Bisacodyl (Bisacodyl 10 Mg Supp.Rect) 10 mg CO ONCE ONE Stop: 05/05/21 14:52 Dextrose (Dextrose 50 % 25 Gm/50 Ml Syringe) 25 gm IVPUSH Q15M PRN; Protocol PRN Reason: per Hypoglycemia Standing Ord. Docusate Sodium (Docusate Sodium 100 Mg Capsule) 100 mg PO BID [facility] Last Admin: 05/05/21 09:36 Dose: 100 mg Documented by: NICHOLAS Famotidine (Famotidine 20 Mg Tablet) 20 mg PO BID [facility] Last Admin: 05/05/21 09:37 Dose: 20 mg Documented by: NICHOLAS Glucose (Glucose Gel 15 Gm Gel..Gram.) 15 gm PO Q15M PRN; Protocol PRN Reason: per Hypoglycemia Standing Ord. Heparin Sodium (Porcine) (Heparin Sodium,Porcine 5,000 Unit/Ml Vial) 5,000 unit SUBCUT Q8H [facility] Last Admin: 05/05/21 12:40 Dose: 5,000 unit Documented by: NICHOLAS Promethazine HCl 12.5 mg/ (Sodium Chloride) 50.5 mls @ 202 mls/hr IV Q6H PRN PRN Reason: Nausea and Vomiting Last Infusion: 05/03/21 18:05 Dose: 0 mls/hr Documented by: JESSIE Sodium Chloride (Ns) 1,000 mls @ 80 mls/hr IVCONT .[id number] [facility] Last Admin: 05/05/21 04:52 Dose: 80 mls/hr Documented by: MICHAEL Insulin Human Lispro (Insulin Lispro 100 Unit/Ml 3 Ml Vial) 0 unit SUBCUT QIDACHS [facility]; Protocol Last Admin: 05/05/21 12:36 Dose: Not Given Documented by: NICHOLAS Non-Admin Reason: No Insulin Coverage Lisinopril (Lisinopril 5 Mg Tablet) 5 mg PO DAILY [facility]; Protocol Last Admin: 05/05/21 09:37 Dose: 5 mg Documented by: NICHOLAS Melatonin (Melatonin 3 Mg Tablet) 6 mg PO BEDTIME PRN PRN Reason: Insomnia Last Admin: 05/04/21 19:52 Dose: 6 mg Documented by: NAHID Morphine Sulfate (Morphine Sulfate 2 Mg/Ml Cartridge) 4 mg IVPUSH Q4H PRN; P rotocol PRN Reason: Pain, Severe (Pain Scale 7-10) Last Admin: 05/05/21 03:53 Dose: 4 mg Documented by: MICHAEL Nicotine (Nicotine 21 Mg Patch.Td24) 21 mg TRANSDERMA DAILY [facility] Last Admin: 05/05/21 09:37 Dose: 21 mg Documented by: NICHOLAS Ondansetron HCl (Ondansetron Hcl 4 Mg/2 Ml Vial) 4 mg IVPUSH Q8H PRN PRN Reason: Nausea and Vomiting Last Admin: 05/04/21 20:57 Dose: 4 mg Documented by: NAHID Oxcarbazepine (Oxcarbazepine 300 Mg Tablet) 600 mg PO BEDTIME [facility] Last Admin: 05/04/21 19:51 Dose: 600 mg Documented by: NAHID Oxycodone HCl (Oxycodone Hcl Immed Release 5 Mg Tablet) 10 mg PO Q4H PRN PRN Reason: Pain, Severe (Pain Scale 7-10) Last Admin: 05/04/21 19:52 Dose: 10 mg Documented by: NAHID Oxycodone HCl (Oxycodone Hcl Immed Release 5 Mg Tablet) 5 mg PO Q4H PRN PRN Reason: Pain, Moderate (Pain Scale 4-6 Last Admin: 05/04/21 09:18 Dose: 5 mg Documented by: HO.YOUB Quetiapine Fumarate (Quetiapine Fumarate 100 Mg Tablet) 100 mg PO DAILY [facility] Last Admin: 05/05/21 09:36 Dose: 100 mg Documented by: NICHOLAS Sertraline HCl (Sertraline Hcl 100 Mg Tablet) 200 mg PO DAILY [facility] Last Admin: 05/05/21 09:36 Dose: 200 mg Documented by: NICHOLAS Sodium Chloride (0.9 % Sodium Chloride Flush 3 Ml Syringe) 3 ml IVFLUSH QSHIFT [facility] Last Admin: 05/05/21 09:37 Dose: 3 ml Documented by: NICHOLAS Sodium Chloride (Sodium Chloride 0.65 % Nasal 44 Ml Sprbtl) 1 spray NOSTRIL-B BID PRN PRN Reason: Nasal Congestion Tamoxifen Citrate (Tamoxifen Citrate 10 Mg Tablet) 20 mg PO DAILY [facility] Last Admin: 05/05/21 09:37 Dose: 20 mg Documented by: NICHOLAS Trazodone HCl (Trazodone Hcl 100 Mg Tablet) 100 mg PO BEDTIME PRN PRN Reason: Insomnia Last Admin: 05/04/21 02:42 Dose: 100 mg Documented by: DILMAQC Labs CBC & Chem 7: 05/02/21 05:21 05/05/21 05:49 Labs: Laboratory Results - last 24 hr 05/04/21 05/04/21 05/05/21 15:54 19:42 05:49 Anion Gap 15 Estim Creat Clear Calc 105.9 Estimated GFR > 60 POC Glucose 131 H 147 H Fasting Glucose 112 H Calcium 8.7 05/05/21 05/05/21 07:52 11:05 Anion Gap Estim Creat Clear Calc Estimated GFR POC Glucose 108 134 H Fasting Glucose Calcium Procedures Date of Service Date of Service: 05/05/21 Progress Note: A&P Assessment and plan (1) Serrated polyp of colon: Status: Acute Assessment and Plan: pt is pod#3 s.p right colectomy - overall doing well but abdo still very distended - now says passing some gas- great bowel sounds and non-tender will increase to some liquids nd give a small piece of toast - pt very hungry she says - told her if gets up and moves will give her some more po try dulcolax suppository to stimulate from below. Fall Risk Details Current Medications: Current Medications Albuterol Sulfate (Albuterol Sulfate 90 Mcg 8 Gm Inhaler) 2 puff INHALE Q4H PRN PRN Reason: Shortness Of Breath Or Wheezin Atorvastatin Calcium (Atorvastatin Calcium 80 Mg Tablet) 80 mg PO BEDTIME [facility] Last Admin: 05/04/21 19:51 Dose: 80 mg Documented by: Bisacodyl (Bisacodyl 10 Mg Supp.Rect) 10 mg CO ONCE ONE Stop: 05/05/21 14:52 Dextrose (Dextrose 50 % 25 Gm/50 Ml Syringe) 25 gm IVPUSH Q15M PRN; Protocol PRN Reason: per Hypoglycemia Standing Ord. Docusate Sodium (Docusate Sodium 100 Mg Capsule) 100 mg PO BID [facility] Last Admin: 05/05/21 09:36 Dose: 100 mg Documented by: Famotidine (Famotidine 20 Mg Tablet) 20 mg PO BID [facility] Last Admin: 05/05/21 09:37 Dose: 20 mg Documented by: Glucose (Glucose Gel 15 Gm Gel..Gram.) 15 gm PO Q15M PRN; Protocol PRN Reason: per Hypoglycemia Standing Ord. Heparin Sodium (Porcine) (Heparin Sodium,Porcine 5,000 Unit/Ml Vial) 5,000 unit SUBCUT Q8H [facility] Last Admin: 05/05/21 12:40 Dose: 5,000 unit Documented by: Promethazine HCl 12.5 mg/ (Sodium Chloride) 50.5 mls @ 202 mls/hr IV Q6H PRN PRN Reason: Nausea and Vomiting Last Infusion: 05/03/21 18:05 Dose: Infused Documented by: Sodium Chloride (Ns) 1,000 mls @ 80 mls/hr IVCONT .[id number] [facility] Last Admin: 05/05/21 04:52 Dose: 80 mls/hr Documented by: Insulin Human Lispro (Insulin Lispro 100 Unit/Ml 3 Ml Vial) 0 unit SUBCUT QIDACHS [facility]; Protocol Last Admin: 05/05/21 12:36 Dose: Not Given Documented by: Lisinopril (Lisinopril 5 Mg Tablet) 5 mg PO DAILY [facility]; Protocol Last Admin: 05/05/21 09:37 Dose: 5 mg Documented by: Melatonin (Melatonin 3 Mg Tablet) 6 mg PO BEDTIME PRN PRN Reason: Insomnia Last Admin: 05/04/21 19:52 Dose: 6 mg Documented by: Morphine Sulfate (Morphine Sulfate 2 Mg/Ml Cartridge) 4 mg IVPUSH Q4H PRN; Protocol PRN Reason: Pain, Severe (Pain Scale 7-10) Last Admin: 05/05/21 03:53 Dose: 4 mg Documented by: Nicotine (Nicotine 21 Mg Patch.Td24) 21 mg TRANSDERMA DAILY [facility] Last Admin: 05/05/21 09:37 Dose: 21 mg Documented by: Ondansetron HCl (Ondansetron Hcl 4 Mg/2 Ml Vial) 4 mg IVPUSH Q8H PRN PRN Reason: Nausea and Vomiting Last Admin: 05/04/21 20:57 Dose: 4 mg Documented by: Oxcarbazepine (Oxcarbazepine 300 Mg Tablet) 600 mg PO BEDTIME [facility] Last Admin: 05/04/21 19:51 Dose: 600 mg Documented by: Oxycodone HCl (Oxycodone Hcl Immed Release 5 Mg Tablet) 10 mg PO Q4H PRN PRN Reason: Pain, Severe (Pain Scale 7-10) Last Admin: 05/04/21 19:52 Dose: 10 mg Documented by: Oxycodone HCl (Oxycodone Hcl Immed Release 5 Mg Tablet) 5 mg PO Q4H PRN PRN Reason: Pain, Moderate (Pain Scale 4-6 Last Admin: 05/04/21 09:18 Dose: 5 mg Documented by: Quetiapine Fumarate (Quetiapine Fumarate 100 Mg Tablet) 100 mg PO DAILY [facility] Last Admin: 05/05/21 09:36 Dose: 100 mg Documented by: Sertraline HCl (Sertraline Hcl 100 Mg Tablet) 200 mg PO DAILY [facility] Last Admin: 05/05/21 09:36 Dose: 200 mg Documented by: Sodium Chloride (0.9 % Sodium Chloride Flush 3 Ml Syringe) 3 ml IVFLUSH QSHIFT [facility] Last Admin: 05/05/21 09:37 Dose: 3 ml Documented by: Sodium Chloride (Sodium Chloride 0.65 % Nasal 44 Ml Sprbtl) 1 spray NOSTRIL-B BID PRN PRN Reason: Nasal Congestion Tamoxifen Citrate (Tamoxifen Citrate 10 Mg Tablet) 20 mg PO DAILY [facility] Last Admin: 05/05/21 09:37 Dose: 20 mg Documented by: Trazodone HCl (Trazodone Hcl 100 Mg Tablet) 100 mg PO BEDTIME PRN PRN Reason: Insomnia Last Admin: 05/04/21 02:42 Dose: 100 mg Documented by: Time Spent With Patient Time: Total time spent is greater than 50% in coordination of care (as documented) at patient's floor/unit and/or counseling patient: Time with patient: 15 - 24 minutes Quality Stroke Does the patient have a stroke diagnosis?: No VTE Prior VTE?: No VTE Risk Level:: Medical - moderate - high VTE Device Contraindication: N/A - Device Ordered VTE Drug Contraindication: N/A - Med Ordered
[2021-05-05 15:39] VITALS: BP 120/66; PULSE 77; RESP 18; TEMP 36.7; O2SAT 94
[2021-05-05 15:49] LABS: Glucose, Whole Blood 112 mg/dL (60-115)
[2021-05-05] MEDS: bisacodyL 10 MG SUPP.RECT PR (16:21)
[2021-05-05 19:44] VITALS: BP 128/62; PULSE 70; RESP 18; TEMP 36.6; O2SAT 94
[2021-05-05 20:30] LABS: Glucose, Whole Blood 164 mg/dL (60-115)
[2021-05-05] MEDS: Melatonin 3 MG TABLET 6 MG PO (21:40)
[2021-05-05] MEDS: OXcarbazepine 300 MG TABLET 600 MG PO (21:40)
[2021-05-05] MEDS: Atorvastatin Calcium 80 MG TABLET PO (21:40)
[2021-05-05] MEDS: Insulin Lispro 100 UNIT/ML 3 ML VIAL SUBCUT (21:40)
[2021-05-05 23:43] VITALS: BP 106/63; PULSE 69; RESP 17; TEMP 36.2; O2SAT 94
[2021-05-06] MEDS: Heparin Sodium,Porcine 5,000 UNIT/ML VIAL 5000 UNIT SUBCUT ×3 (03:43→18:22)
[2021-05-06] MEDS: 0.9 % Sodium Chloride 1,000 ML 80 ML IVCONT (03:46)
[2021-05-06 03:57] VITALS: BP 112/60; PULSE 71; RESP 17; TEMP 36.3; O2SAT 94
[2021-05-06 07:35] LABS: Glucose, Whole Blood 146 mg/dL (60-115)
[2021-05-06 07:45] VITALS: BP 112/67; PULSE 73; RESP 15; TEMP 36.2; O2SAT 98
[2021-05-06] MEDS: Famotidine 20 MG TABLET PO ×2 (08:36→19:56)
[2021-05-06] MEDS: Nicotine 21 MG PATCH.TD24 TRANSDERMA (08:36)
[2021-05-06] MEDS: QUEtiapine Fumarate 100 MG TABLET PO (08:36)
[2021-05-06] MEDS: Sertraline HCL 100 MG TABLET 200 MG PO (08:36)
[2021-05-06] MEDS: 0.9 % Sodium Chloride Flush 3 ML SYRINGE IVFLUSH ×3 (08:37→19:59)
[2021-05-06] MEDS: Morphine Sulfate 2 MG/ML CARTRIDGE 4 MG IVPUSH (08:37)
[2021-05-06] MEDS: Docusate Sodium 100 MG CAPSULE PO ×2 (08:37→19:56)
[2021-05-06] MEDS: Tamoxifen Citrate 10 MG TABLET 20 MG PO (08:37)
[2021-05-06] MEDS: lisinopriL 5 MG TABLET PO (08:45)
[2021-05-06 11:32] LABS: Glucose, Whole Blood 147 mg/dL (60-115)
[2021-05-06 11:33] VITALS: BP 138/59; PULSE 64; RESP 16; TEMP 36.3; O2SAT 98
--- NOTE | 2021-05-06 12:57 | P.PNGS_ITS ---
Subjective Subjective Date of Service: 05/06/21 Interval history: pt doing better, passing gas and had a bowel movement earlier today, walking a lot more says she is hungry wants food Physical Exam Vital Signs: Vital Signs: Last Vital Signs Temp 97.3 F 05/06/21 11:33 Pulse 64 05/06/21 11:33 Resp 16 05/06/21 11:33 BP 138/59 L 05/06/21 11:33 Pulse Ox 98 05/06/21 11:33 BMI result Body Mass Index 26.2 Resp: Auscultation: clear to auscultation bilaterally Cardio: Rate: regular rate Rhythm: regular rhythm GI: Other: abdo soft still distended but softer - she says always like this good bowel sounds and wounds look good nontender Psych: Other: more awake and alert and cooperative Objective Data Active Medications Albuterol Sulfate (Albuterol Sulfate 90 Mcg 8 Gm Inhaler) 2 puff INHALE Q4H PRN PRN Reason: Shortness Of Breath Or Wheezin Atorvastatin Calcium (Atorvastatin Calcium 80 Mg Tablet) 80 mg PO BEDTIME [facility] Last Admin: 05/05/21 21:40 Dose: 80 mg Documented by: RADHAMES Dextrose (Dextrose 50 % 25 Gm/50 Ml Syringe) 25 gm IVPUSH Q15M PRN; Protocol PRN Reason: per Hypoglycemia Standing Ord. Docusate Sodium (Docusate Sodium 100 Mg Capsule) 100 mg PO BID [facility] Last Admin: 05/06/21 08:37 Dose: 100 mg Documented by: NICHOLAS Famotidine (Famotidine 20 Mg Tablet) 20 mg PO BID [facility] Last Admin: 05/06/21 08:36 Dose: 20 mg Documented by: NICHOLAS Glucose (Glucose Gel 15 Gm Gel..Gram.) 15 gm PO Q15M PRN; Protocol PRN Reason: per Hypoglycemia Standing Ord. Heparin Sodium (Porcine) (Heparin Sodium,Porcine 5,000 Unit/Ml Vial) 5,000 unit SUBCUT Q8H [facility] Last Admin: 05/06/21 12:29 Dose: 5,000 unit Documented by: NICHOLAS Promethazine HCl 12.5 mg/ (Sodium Chloride) 50.5 mls @ 202 mls/hr IV Q6H PRN PRN Reason: Nausea and Vomiting Last Infusion: 05/03/21 18:05 Dose: 0 mls/hr Documented by: JESSIE Insulin Human Lispro (Insulin Lispro 100 Unit/Ml 3 Ml Vial) 0 unit SUBCUT QIDACHS [facility]; Protocol Last Admin: 05/06/21 11:46 Dose: Not Given Documented by: NICHOLAS Non-Admin Reason: No Insulin Coverage Lisinopril (Lisinopril 5 Mg Tablet) 5 mg PO DAILY [facility]; Protocol Last Admin: 05/06/21 08:45 Dose: 5 mg Documented by: NICHOLAS Melatonin (Melatonin 3 Mg Tablet) 6 mg PO BEDTIME PRN PRN Reason: Insomnia Last Admin: 05/05/21 21:40 Dose: 6 mg Documented by: RADHAMES Nicotine (Nicotine 21 Mg Patch.Td24) 21 mg TRANSDERMA DAILY [facility] Last Admin: 05/06/21 08:36 Dose: 21 mg Documented by: NICHOLAS Ondansetron HCl (Ondansetron Hcl 4 Mg/2 Ml Vial) 4 mg IVPUSH Q8H PRN PRN Reason: Nausea and Vomiting Last Admin: 05/04/21 20:57 Dose: 4 mg Documented by: NAHID Oxcarbazepine (Oxcarbazepine 300 Mg Tablet) 600 mg PO BEDTIME [facility] Last Admin: 05/05/21 21:40 Dose: 600 mg Documented by: RADHAMES Quetiapine Fumarate (Quetiapine Fumarate 100 Mg Tablet) 100 mg PO DAILY [facility] Last Admin: 05/06/21 08:36 Dose: 100 mg Documented by: NICHOLAS Sertraline HCl (Sertraline Hcl 100 Mg Tablet) 200 mg PO DAILY [facility] Last Admin: 05/06/21 08:36 Dose: 200 mg Documented by: NICHOLAS Sodium Chloride (0.9 % Sodium Chloride Flush 3 Ml Syringe) 3 ml IVFLUSH QSHIFT [facility] Last Admin: 05/06/21 08:37 Dose: 3 ml Documented by: NICHOLAS Sodium Chloride (Sodium Chloride 0.65 % Nasal 44 Ml Sprbtl) 1 spray NOSTRIL-B BID PRN PRN Reason: Nasal Congestion Tamoxifen Citrate (Tamoxifen Citrate 10 Mg Tablet) 20 mg PO DAILY [facility] Last Admin: 05/06/21 08:37 Dose: 20 mg Documented by: NICHOLAS Trazodone HCl (Trazodone Hcl 100 Mg Tablet) 100 mg PO BEDTIME PRN PRN Reason: Insomnia Last Admin: 05/04/21 02:42 Dose: 100 mg Documented by: JESSIE Labs CBC & Chem 7: 05/02/21 05:21 05/05/21 05:49 Labs: Laboratory Results - last 24 hr 05/05/21 05/05/21 05/06/21 15:45 20:24 07:27 POC Glucose 112 164 H 146 H 05/06/21 11:20 POC Glucose 147 H Procedures Date of Service Date of Service: 05/06/21 Progress Note: A&P Assessment and plan (1) Serrated polyp of colon: Status: Acute Assessment and Plan: pt s/p right colectomy 3 days ago - slow return of bowel function but better today - she is hungry - plan to do full liquids and advance as tolerated, heplock ivf ambulate Fall Risk Details Current Medications: Current Medications Albuterol Sulfate (Albuterol Sulfate 90 Mcg 8 Gm Inhaler) 2 puff INHALE Q4H PRN PRN Reason: Shortness Of Breath Or Wheezin Atorvastatin Calcium (Atorvastatin Calcium 80 Mg Tablet) 80 mg PO BEDTIME [facility] Last Admin: 05/05/21 21:40 Dose: 80 mg Documented by: Dextrose (Dextrose 50 % 25 Gm/50 Ml Syringe) 25 gm IVPUSH Q15M PRN; Protocol PRN Reason: per Hypoglycemia Standing Ord. Docusate Sodium (Docusate Sodium 100 Mg Capsule) 100 mg PO BID [facility] Last Admin: 05/06/21 08:37 Dose: 100 mg Documented by: Famotidine (Famotidine 20 Mg Tablet) 20 mg PO BID [facility] Last Admin: 05/06/21 08:36 Dose: 20 mg Documented by: Glucose (Glucose Gel 15 Gm Gel..Gram.) 15 gm PO Q15M PRN; Protocol PRN Reason: per Hypoglycemia Standing Ord. Heparin Sodium (Porcine) (Heparin Sodium,Porcine 5,000 Unit/Ml Vial) 5,000 unit SUBCUT Q8H [facility] Last Admin: 05/06/21 12:29 Dose: 5,000 unit Documented by: Promethazine HCl 12.5 mg/ (Sodium Chloride) 50.5 mls @ 202 mls/hr IV Q6H PRN PRN Reason: Nausea and Vomiting Last Infusion: 05/03/21 18:05 Dose: Infused Documented by: Insulin Human Lispro (Insulin Lispro 100 Unit/Ml 3 Ml Vial) 0 unit SUBCUT QIDACHS [facility]; Protocol Last Admin: 05/06/21 11:46 Dose: Not Given Documented by: Lisinopril (Lisinopril 5 Mg Tablet) 5 mg PO DAILY [facility]; Protocol Last Admin: 05/06/21 08:45 Dose: 5 mg Documented by: Melatonin (Melatonin 3 Mg Tablet) 6 mg PO BEDTIME PRN PRN Reason: Insomnia Last Admin: 05/05/21 21:40 Dose: 6 mg Documented by: Nicotine (Nicotine 21 Mg Patch.Td24) 21 mg TRANSDERMA DAILY [facility] Last Admin: 05/06/21 08:36 Dose: 21 mg Documented by: Ondansetron HCl (Ondansetron Hcl 4 Mg/2 Ml Vial) 4 mg IVPUSH Q8H PRN PRN Reason: Nausea and Vomiting Last Admin: 05/04/21 20:57 Dose: 4 mg Documented by: Oxcarbazepine (Oxcarbazepine 300 Mg Tablet) 600 mg PO BEDTIME [facility] Last Admin: 05/05/21 21:40 Dose: 600 mg Documented by: Quetiapine Fumarate (Quetiapine Fumarate 100 Mg Tablet) 100 mg PO DAILY [facility] Last Admin: 05/06/21 08:36 Dose: 100 mg Documented by: Sertraline HCl (Sertraline Hcl 100 Mg Tablet) 200 mg PO DAILY [facility] Last Admin: 05/06/21 08:36 Dose: 200 mg Documented by: Sodium Chloride (0.9 % Sodium Chloride Flush 3 Ml Syringe) 3 ml IVFLUSH QSHIFT [facility] Last Admin: 05/06/21 08:37 Dose: 3 ml Documented by: Sodium Chloride (Sodium Chloride 0.65 % Nasal 44 Ml Sprbtl) 1 spray NOSTRIL-B BID PRN PRN Reason: Nasal Congestion Tamoxifen Citrate (Tamoxifen Citrate 10 Mg Tablet) 20 mg PO DAILY [facility] Last Admin: 05/06/21 08:37 Dose: 20 mg Documented by: Trazodone HCl (Trazodone Hcl 100 Mg Tablet) 100 mg PO BEDTIME PRN PRN Reason: Insomnia Last Admin: 05/04/21 02:42 Dose: 100 mg Documented by: Time Spent With Patient Time: Total time spent is greater than 50% in coordination of care (as documented) at patient's floor/unit and/or counseling patient: Time with patient: 25 - 35 minutes Quality Stroke Does the patient have a stroke diagnosis?: No VTE Prior VTE?: No VTE Risk Level:: Medical - moderate - high VTE Device Contraindication: N/A - Device Ordered VTE Drug Contraindication: N/A - Med Ordered
[2021-05-06 15:48] VITALS: BP 112/67; PULSE 76; RESP 18; TEMP 36.6; O2SAT 93
[2021-05-06 16:09] LABS: Glucose, Whole Blood 215 mg/dL (60-115)
[2021-05-06] MEDS: Insulin Lispro 100 UNIT/ML 3 ML VIAL SUBCUT (17:13)
[2021-05-06 19:33] VITALS: BP 126/68; PULSE 64; RESP 18; TEMP 36.6; O2SAT 97
[2021-05-06 19:46] LABS: Glucose, Whole Blood 116 mg/dL (60-115)
[2021-05-06] MEDS: Atorvastatin Calcium 80 MG TABLET PO (19:56)
[2021-05-06] MEDS: OXcarbazepine 300 MG TABLET 600 MG PO (19:56)
[2021-05-06] MEDS: traZODone HCL 100 MG TABLET PO (19:57)
[2021-05-07] VITALS: BP 128/62; PULSE 67; RESP 16; TEMP 36.8; O2SAT 95
[2021-05-07] MEDS: Melatonin 3 MG TABLET 6 MG PO (02:35)
[2021-05-07] MEDS: Heparin Sodium,Porcine 5,000 UNIT/ML VIAL 5000 UNIT SUBCUT ×2 (02:49→12:06)
[2021-05-07 03:58] VITALS: RESP 16
[2021-05-07 07:37] VITALS: BP 130/65; PULSE 68; RESP 17; TEMP 36.8; O2SAT 94
[2021-05-07 07:38] LABS: Glucose, Whole Blood 142 mg/dL (60-115)
[2021-05-07] MEDS: Famotidine 20 MG TABLET PO (08:02)
[2021-05-07] MEDS: lisinopriL 5 MG TABLET PO (08:03)
[2021-05-07] MEDS: Sertraline HCL 100 MG TABLET 200 MG PO (08:03)
[2021-05-07] MEDS: QUEtiapine Fumarate 100 MG TABLET PO (08:03)
[2021-05-07] MEDS: Docusate Sodium 100 MG CAPSULE PO (08:03)
[2021-05-07] MEDS: Tamoxifen Citrate 10 MG TABLET 20 MG PO (08:04)
[2021-05-07] MEDS: 0.9 % Sodium Chloride Flush 3 ML SYRINGE IVFLUSH (08:07)
--- NOTE | 2021-05-07 08:10 | PM.PNGS ---
Subjective Subjective Date of Service: 05/08/21 Interval history: tolerating diet has BMs, flatus says she is ready to go home Physical Exam Vital Signs: Vital Signs: Last Vital Signs Temp 98.2 F 05/07/21 07:37 Pulse 68 05/07/21 07:37 Resp 17 05/07/21 07:37 BP 130/65 05/07/21 07:37 Pulse Ox 94 05/07/21 07:37 BMI result Body Mass Index 26.2 Const: General: comfortable and no acute distress Resp: Effort & Inspection: normal respiratory effort Cardio: Rate: regular rate GI: Palpation (GI): Soft to palpation, nontender and no guarding Objective Data Active Medications Albuterol Sulfate (Albuterol Sulfate 90 Mcg 8 Gm Inhaler) 2 puff INHALE Q4H PRN PRN Reason: Shortness Of Breath Or Wheezin Atorvastatin Calcium (Atorvastatin Calcium 80 Mg Tablet) 80 mg PO BEDTIME [facility]PLAC[facility] Last Admin: 05/06/21 19:56 Dose: 80 mg Documented by: ALVARO Dextrose (Dextrose 50 % 25 Gm/50 Ml Syringe) 25 gm IVPUSH Q15M PRN; Protocol PRN Reason: per Hypoglycemia Standing Ord. Docusate Sodium (Docusate Sodium 100 Mg Capsule) 100 mg PO BID [facility] Last Admin: 05/07/21 08:03 Dose: 100 mg Documented by: ZANE Famotidine (Famotidine 20 Mg Tablet) 20 mg PO BID [facility] Last Admin: 05/07/21 08:02 Dose: 20 mg Documented by: ZANE Glucose (Glucose Gel 15 Gm Gel..Gram.) 15 gm PO Q15M PRN; Protocol PRN Reason: per Hypoglycemia Standing Ord. Heparin Sodium (Porcine) (Heparin Sodium,Porcine 5,000 Unit/Ml Vial) 5,000 unit SUBCUT Q8H [facility] Last Admin: 05/07/21 02:49 Dose: 5,000 unit Documented by: ALVARO Promethazine HCl 12.5 mg/ (Sodium Chloride) 50.5 mls @ 202 mls/hr IV Q6H PRN PRN Reason: Nausea and Vomiting Last Infusion: 05/03/21 18:05 Dose: 0 mls/hr Documented by: JESSIE Insulin Human Lispro (Insulin Lispro 100 Unit/Ml 3 Ml Vial) 0 unit SUBCUT QIDACHS [facility]; Protocol Last Admin: 05/06/21 20:10 Dose: Not Given Documented by: ALVARO Non-Admin Reason: No Insulin Coverage Lisinopril (Lisinopril 5 Mg Tablet) 5 mg PO DAILY [facility]; Protocol Last Admin: 05/07/21 08:03 Dose: 5 mg Documented by: ZANE Melatonin (Melatonin 3 Mg Tablet) 6 mg PO BEDTIME PRN PRN Reason: Insomnia Last Admin: 05/07/21 02:35 Dose: 6 mg Documented by: ALVARO Nicotine (Nicotine 21 Mg Patch.Td24) 21 mg TRANSDERMA DAILY [facility] Last Admin: 05/06/21 08:36 Dose: 21 mg Documented by: NICHOLAS Ondansetron HCl (Ondansetron Hcl 4 Mg/2 Ml Vial) 4 mg IVPUSH Q8H PRN PRN Reason: Nausea and Vomiting Last Admin: 05/04/21 20:57 Dose: 4 mg Documented by: NAHID Oxcarbazepine (Oxcarbazepine 300 Mg Tablet) 600 mg PO BEDTIME [facility] Last Admin: 05/06/21 19:56 Dose: 600 mg Documented by: ALVARO Quetiapine Fumarate (Quetiapine Fumarate 100 Mg Tablet) 100 mg PO DAILY [facility] Last Admin: 05/07/21 08:03 Dose: 100 mg Documented by: ZANE Sertraline HCl (Sertraline Hcl 100 Mg Tablet) 200 mg PO DAILY [facility] Last Admin: 05/07/21 08:03 Dose: 200 mg Documented by: ZANE Sodium Chloride (0.9 % Sodium Chloride Flush 3 Ml Syringe) 3 ml IVFLUSH QSHIFT [facility]PL[facility] Last Admin: 05/07/21 08:07 Dose: 3 ml Documented by: ZANE Sodium Chloride (Sodium Chloride 0.65 % Nasal 44 Ml Sprbtl) 1 spray NOSTRIL-B BID PRN PRN Reason: Nasal Congestion Tamoxifen Citrate (Tamoxifen Citrate 10 Mg Tablet) 20 mg PO DAILY [facility] Last Admin: 05/07/21 08:04 Dose: 20 mg Documented by: ZANE Trazodone HCl (Trazodone Hcl 100 Mg Tablet) 100 mg PO BEDTIME PRN PRN Reason: Insomnia Last Admin: 05/06/21 19:57 Dose: 100 mg Documented by: ALVARO Labs CBC & Chem 7: 05/02/21 05:21 05/05/21 05:49 Labs: Laboratory Results - last 24 hr 05/06/21 05/06/21 05/06/21 11:20 16:00 19:40 POC Glucose 147 H 215 H 116 H 05/07/21 07:32 POC Glucose 142 H Procedures Date of Service Date of Service: 05/07/21 Progress Note: A&P Assessment and plan (1) Serrated polyp of colon: Status: Acute Assessment and Plan: S/P right colectomy doing well path: serrated polyp looks well tolerating diet home today Fall Risk Details Current Medications: Current Medications Albuterol Sulfate (Albuterol Sulfate 90 Mcg 8 Gm Inhaler) 2 puff INHALE Q4H PRN PRN Reason: Shortness Of Breath Or Wheezin Atorvastatin Calcium (Atorvastatin Calcium 80 Mg Tablet) 80 mg PO BEDTIME [facility] Last Admin: 05/06/21 19:56 Dose: 80 mg Documented by: Dextrose (Dextrose 50 % 25 Gm/50 Ml Syringe) 25 gm IVPUSH Q15M PRN; Protocol PRN Reason: per Hypoglycemia Standing Ord. Docusate Sodium (Docusate Sodium 100 Mg Capsule) 100 mg PO BID [facility] Last Admin: 05/07/21 08:03 Dose: 100 mg Documented by: Famotidine (Famotidine 20 Mg Tablet) 20 mg PO BID [facility] Last Admin: 05/07/21 08:02 Dose: 20 mg Documented by: Glucose (Glucose Gel 15 Gm Gel..Gram.) 15 gm PO Q15M PRN; Protocol PRN Reason: per Hypoglycemia Standing Ord. Heparin Sodium (Porcine) (Heparin Sodium,Porcine 5,000 Unit/Ml Vial) 5,000 unit SUBCUT Q8H [facility] Last Admin: 05/07/21 02:49 Dose: 5,000 unit Documented by: Promethazine HCl 12.5 mg/ (Sodium Chloride) 50.5 mls @ 202 mls/hr IV Q6H PRN PRN Reason: Nausea and Vomiting Last Infusion: 05/03/21 18:05 Dose: Infused Documented by: Insulin Human Lispro (Insulin Lispro 100 Unit/Ml 3 Ml Vial) 0 unit SUBCUT QIDACHS [facility]PL[facility]ED [facility]; Protocol Last Admin: 05/06/21 20:10 Dose: Not Given Documented by: Lisinopril (Lisinopril 5 Mg Tablet) 5 mg PO DAILY [facility]; Protocol Last Admin: 05/07/21 08:03 Dose: 5 mg Documented by: Melatonin (Melatonin 3 Mg Tablet) 6 mg PO BEDTIME PRN PRN Reason: Insomnia Last Admin: 05/07/21 02:35 Dose: 6 mg Documented by: Nicotine (Nicotine 21 Mg Patch.Td24) 21 mg TRANSDERMA DAILY [facility] Last Admin: 05/06/21 08:36 Dose: 21 mg Documented by: Ondansetron HCl (Ondansetron Hcl 4 Mg/2 Ml Vial) 4 mg IVPUSH Q8H PRN PRN Reason: Nausea and Vomiting Last Admin: 05/04/21 20:57 Dose: 4 mg Documented by: Oxcarbazepine (Oxcarbazepine 300 Mg Tablet) 600 mg PO BEDTIME [facility] Last Admin: 05/06/21 19:56 Dose: 600 mg Documented by: Quetiapine Fumarate (Quetiapine Fumarate 100 Mg Tablet) 100 mg PO DAILY [facility] Last Admin: 05/07/21 08:03 Dose: 100 mg Documented by: Sertraline HCl (Sertraline Hcl 100 Mg Tablet) 200 mg PO DAILY [facility] Last Admin: 05/07/21 08:03 Dose: 200 mg Documented by: Sodium Chloride (0.9 % Sodium Chloride Flush 3 Ml Syringe) 3 ml IVFLUSH QSHIFT [facility]PLACED [facility] Last Admin: 05/07/21 08:07 Dose: 3 ml Documented by: Sodium Chloride (Sodium Chloride 0.65 % Nasal 44 Ml Sprbtl) 1 spray NOSTRIL-B BID PRN PRN Reason: Nasal Congestion Tamoxifen Citrate (Tamoxifen Citrate 10 Mg Tablet) 20 mg PO DAILY [facility] Last Admin: 05/07/21 08:04 Dose: 20 mg Documented by: Trazodone HCl (Trazodone Hcl 100 Mg Tablet) 100 mg PO BEDTIME PRN PRN Reason: Insomnia Last Admin: 05/06/21 19:57 Dose: 100 mg Documented by: Time Spent With Patient Time: Total time spent is greater than 50% in coordination of care (as documented) at patient's floor/unit and/or counseling patient: Time with patient: 15 - 24 minutes Quality Stroke Does the patient have a stroke diagnosis?: No VTE Prior VTE?: No VTE Risk Level:: Medical - moderate - high VTE Device Contraindication: N/A - Device Ordered VTE Drug Contraindication: N/A - Med Ordered
[2021-05-07] MEDS: Nicotine 21 MG PATCH.TD24 TRANSDERMA (08:17)
[2021-05-07 11:48] LABS: Glucose, Whole Blood 181 mg/dL (60-115)
[2021-05-07 11:59] VITALS: BP 119/68; PULSE 71; RESP 18; TEMP 36.4; O2SAT 96
[2021-05-07] MEDS: Insulin Lispro 100 UNIT/ML 3 ML VIAL SUBCUT (12:08)
--- NOTE | 2021-05-07 13:09 | MHC.CM.PN ---
PATIENT IS DC HOME - SELF CARE SHE HAS ARRANGED FOR TRANSPORT HOME. RN AWARE OF PLAN.
--- NOTE | 2021-05-10 09:13 | P.DS_ITS ---
DS: Providers Provider Date of Service: 05/07/21 Date of admission: 05/01/21 11:04 Primary care physician: Juli Saavedra Attending physician on admission: Manoj Locke DS: Diagnosis Discharge Diagnosis (1) Serrated polyp of colon: Status: Acute DS: Summary Hospital Course Hospital Course: BRIEF HPI: The patient is a 50 year female who had a colonoscopy last February, which showed a sessile serrated polyp in the appendiceal orifice. The endoscopies had stated that this could not be removed completely in because of the sessile nature of the polyp and its location. She was referred to for resection of the right colon and now presents for the procedure. HOSPITAL COURSE: On 05/01/21, a FERNANDO right colon resection was performed by Dr. Locke without complication. The patient tolerated the procedure well, completed routine recovery and was admitted for observation. The patient had an uncomplicated but slow recovery course as she developed a post op ileus. On POD #1, she was doing well but had no evidence of GI function and was distended. She was therefore continued on clear liquids. She remained distended and developed nausea and vomiting, consistent with ileus. She was made NPO, kept on IVF. She had not been very active and her activity was increased. She began to pass flatus, her nausea resolved and she felt hungry. She was advanced to clear liquids. She began to move her bowels. She was started on full liquids and then solid diet the following day. She felt well and was comfortable from a pain standpoint on PO analgesics, tolerating a solid diet with good GI function. Her abdomen was benign and was soft, NTND. She felt ready for discharge. She was discharged to home on 05/07/21 in stable condition with f/u in office with Dr. Locke. Status at Discharge Functional status at discharge: independent ambulation Overall status at discharge: patient is progressing back to baseline Time Spent with Patient Time attestation: Total time spent providing and/or coordinating discharge services: Discharge coordination time: Greater than 30 minutes Quality: Stroke Does the patient have a stroke diagnosis?: No Physical Exam Vital Signs: Vital Signs: Last Vital Signs Temp 97.6 F 05/07/21 11:59 Pulse 71 05/07/21 11:59 Resp 18 05/07/21 11:59 BP 119/68 05/07/21 11:59 Pulse Ox 96 05/07/21 11:59 BMI result Body Mass Index 26.2 Const: General: comfortable, no acute distress and alert Orientation/consciousness: patient oriented x3 Resp: Effort & Inspection: normal respiratory effort GI: Inspection: No distended and Yes incision (clean) Palpation (GI): Soft to palpation, Tenderness to palpation present (GI) (mild incisional), no guarding and not rigid Skin: General skin exam: no rashes or lesions noted Neuro: General: patient oriented x3 DS: Data Data Completed and Pending Completed studies during hospitalization [Text1]: 05/01/21 09:56 Surgical [PTH] Stat Ileum and right colon, right hemicolectomy: - Sessile serrated polyp; negative for malignancy; negative margins. - Vermiform appendix within normal limits. - Background normal appearing colon and small bowel. - 19 reactive lymph nodes. Discharge Plan Discharge Patient Disposition: Home, Self-Care Discharge Diagnosis: s/p right colectomy Referrals: Juli Saavedra [Primary Care Provider] - 1 Week Manoj Locke MD [Physician] - 2 Weeks Discharge Medications: New oxycodone-acetaminophen [Percocet] 5-325 mg tablet 1 tab PO Q4-6H PRN (Reason: pain, severe) Qty: 30 0RF ibuprofen 600 mg tablet 600 mg PO Q6H PRN (Reason: pain) Qty: 30 0RF Continued ferrous sulfate 325 mg (65 mg iron) Tablet 325 mg PO DAILY Qty: 60 3RF tamoxifen 20 mg Tablet 20 mg PO DAILY Qty: 90 4RF Farxiga 5 mg tablet 1 tab PO QAM 0RF Invega Sustenna 234 mg/1.5 mL syringe 234 mg IM Q4W 0RF polyethylene glycol 3350 [Miralax] 17 gram Powder In Packet 17 g PO DAILY 0RF sennosides-docusate sodium [Senexon-S] 8.6-50 mg tablet 2 tab PO DAILY 0RF famotidine 20 mg Tablet 20 mg PO BID 0RF nicotine 21 mg/24 hr patch 24 hour 1 patch transdermal DAILY 0RF albuterol sulfate [ProAir HFA] 90 mcg/actuation Hfa Aerosol Inhaler 2 puff INHALATION Q4-6H PRN (Reason: Shortness Of Breath Or Wheezing) 0RF Saline Nasal 0.65 % Aerosol,[place] 1 spray INTRANASAL BID PRN (Reason: Nasal Congestion) 0RF atorvastatin [Lipitor] 80 mg tablet 80 mg PO DAILY 0RF lisinopril 5 mg tablet 5 mg PO DAILY 0RF docusate sodium [Colace] 100 mg capsule 100 mg PO BID 0RF metformin 1,000 mg tablet 1,000 mg PO BID 0RF insulin lispro protamin-lispro 100 unit/mL (75-25) insulin pen See Rx Instructions .ROUTE .COMPLEX 0RF Rx Instructions: 40 units bid trazodone 100 mg tablet 100 mg PO BEDTIME PRN (Reason: Insomnia) 0RF oxcarbazepine 600 mg tablet 600 mg PO BEDTIME 0RF sertraline [Zoloft] 100 mg tablet 200 mg PO DAILY 0RF quetiapine [Seroquel] 100 mg tablet 100 mg PO DAILY 0RF Discharge Orders: Discharge Order (Routine); Ordered 05/07/21 Ordered By: Manoj Locke Diet: other Activity on Discharge: No heavy lifting Stand Alone Forms: Patient Portal Discharge page Activity Restrictions/Additional Instructions: If the incision area is tender, you may apply an ice pack for short intervals (No more than 20 minutes on, followed by at least 20 minutes off). Do not apply heat. Do not use creams, lotions, or topical antibiotics unless instructed to do so by your surgeon. These can cause infection or allergic reaction. Ok to shower. You have césar closing your incision and these will be removed approximately 10-14 days after surgery. Low residue diet. NO HEAVY LIFTING (>10lbs). Follow up in office. ([phone]) Call Your Doctor If: -Your temperature exceeds 101.5? F -You experience excessive pain or swelling -You have an unexpected reaction to medication -You have excessive bleeding -You experience continued vomiting/nausea -Your incision begins to separate -Your incision shows signs of infection such as increased redness, swelling, excessive pain, drainage (light blood or clear fluid is normal) or heat Care Plan Goals: Return to baseline health and gradual return to activity following recovery period. Health Concerns: serrated polyp of cecum Plan of Treatment: s/p FERNANDO right colectomy F/u in office Assessment: Doing well post op Discharge Date/Time: 05/07/21 14:00
== END 2021-05-07 14:00 | disposition home or self-care (01) | DRG 231 ==
LOC: HO.SSSA 11:07 → HO.S3 12:58
PROVIDERS: Physician Assistant Surgical; Admitting Provider Surgery; PCP Nurse Practitioner; Visit Provider Surgery
PROC: 0DBL0ZZ Excision of Transverse Colon, Open Approach (ICD-10-PCS; principal; 2021-05-01 08:40)
DX: D12.0 Benign neoplasm of cecum (principal); K56.7 Ileus, unspecified; F17.210 Nicotine dependence, cigarettes, uncomplicated; F41.9 Anxiety disorder, unspecified; Z71.6 Tobacco abuse counseling; Z20.822 Contact with and (suspected) exposure to COVID-19; Z79.1 Long term (current) use of non-steroidal anti-inflammatories (NSAID); Z79.4 Long term (current) use of insulin; Z79.84 Long term (current) use of oral hypoglycemic drugs; Z79.810 Long term (current) use of selective estrogen receptor modulators (SERMs); Z79.899 Other long term (current) drug therapy
CPT/HCPCS: 36415; 80048; 82947; 85025; 86850; 86900; 86901; 87635; 88305; 88309; 88329; 93005; 99024; C1758; J0131; J1100; J1170; J2250; J2270; J2405; J2550; J3010

== ENCOUNTER → 2021-05-14 14:13 | Outpatient (BNVA) | payer MEDICAID, SELFPAY | PROVIDERS: PCP Nurse Practitioner; Referring Provider Nurse Practitioner; Visit Provider Surgery | DX: K63.5 Polyp of colon (principal) | CPT/HCPCS: 99212 ==

== ENCOUNTER 2021-06-05 14:51 | Outpatient (REF) | payer MEDICAID, SELFPAY ==
[2021-06-06 08:58] LABS: CT PCR NOT DETECTED (Not Detect.); NG PCR NOT DETECTED (Not Detect.)
[2021-06-06 09:23] LABS: BV Int Neg Control Negative (Negative)
[2021-06-06 09:24] LABS: BV Int Pos Control Positive (Positive)
[2021-06-07 15:26] LABS: HPV mRNA E6/E7 rflx Not Detected (Not Detected)
== END 2021-06-05 14:52 | disposition home or self-care (01) ==
LOC: HO.LAB 14:51
PROVIDERS: PCP Nurse Practitioner; Visit Provider Advanced Practice Midwife
DX: Z01.411 Encounter for gynecological examination (general) (routine) with abnormal findings (principal); Z11.51 Encounter for screening for human papillomavirus (HPV); R10.2 Pelvic and perineal pain; Z20.2 Contact with and (suspected) exposure to infections with a predominantly sexual mode of transmission
CPT/HCPCS: 87480; 87491; 87510; 87591; 87624; 87660; 88142

== ENCOUNTER 2021-06-12 12:37 | Emergency (ER) | payer MEDICAID, SELFPAY ==
--- NOTE | ~2021-06-12 | XR_ITS ---
EXAMINATION: XR CHEST CLINICAL INFORMATION: Chest pain COMPARISON: Chest 12/01/2020 TECHNIQUE: 2 views of the chest were obtained. FINDINGS: The lungs are well-expanded and clear of acute process. Heart size and pulmonary vascularity is normal. There is mild levoscoliosis upper dorsal spine. No lytic process. XR/XR chest 2V IMPRESSION: Unremarkable chest exam.
[2021-06-12 13:03] VITALS: BP 144/81; PULSE 90; RESP 18; TEMP 36.5; O2SAT 97; BMI 23.6
--- NOTE | 2021-06-12 13:05 | ECG_ITS ---
Test Reason : asthma/chest pain Blood Pressure : / mmHG Vent. Rate : 084 BPM Atrial Rate : 084 BPM P-R Int : 130 ms QRS Dur : 086 ms QT Int : 372 ms P-R-T Axes : 070 020 046 degrees QTc Int : 439 ms Normal sinus rhythm Nonspecific T wave abnormality Abnormal ECG When compared with ECG of 24-APR-2021 12:28, Nonspecific T wave abnormality, worse in Lateral leads Referred By: Generic ED Physician Electronically Signed By:SLICK ELLIOTT MD
[2021-06-12 13:38] LABS: COVID-19 Test Negative (Negative); IDNOW Serial# 16C4AD1C
--- NOTE | 2021-06-12 15:23 | ED.ASTHMA ---
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 Related Data Home Medications Medication Instructions Recorded Confirmed atorvastatin 80 mg tablet (Lipitor) 80 mg PO DAILY 05/03/20 04/20/21 docusate sodium 100 mg capsule 100 mg PO BID 05/03/20 04/20/21 (Colace) insulin lispro protamine-lispro See Rx Instructions .ROUTE .COMPLEX 05/03/20 04/20/21 100 unit/mL (75-25) subcutaneous pen lisinopril 5 mg tablet 5 mg PO DAILY 05/03/20 04/20/21 metformin 1,000 mg tablet 1,000 mg PO BID 05/03/20 04/20/21 oxcarbazepine 600 mg tablet 600 mg PO BEDTIME 05/03/20 04/20/21 quetiapine 100 mg tablet (Seroquel) 100 mg PO DAILY 05/03/20 04/20/21 sertraline 100 mg tablet (Zoloft) 200 mg PO DAILY tab 05/03/20 04/20/21 trazodone 100 mg tablet 100 mg PO BEDTIME PRN 05/03/20 04/20/21 dapagliflozin 5 mg tablet (Farxiga) 1 tab PO QAM 01/22/21 04/20/21 paliperidone palmitate 234 mg/1.5 234 mg IM Q4W 02/15/21 04/20/21 mL intramuscular syringe (Invega Sustenna) albuterol sulfate 90 mcg/actuation 2 puff INHALATION Q4-6H PRN 04/20/21 04/20/21 aerosol inhaler (ProAir HFA) famotidine 20 mg tablet 20 mg PO BID 04/20/21 04/20/21 nicotine 21 mg/24 hr daily 1 patch TRANSDERMAL DAILY 04/20/21 04/20/21 transdermal patch polyethylene glycol 3350 17 gram 17 g PO DAILY 04/20/21 04/20/21 oral powder packet (Miralax) sennosides 8.6 mg-docusate sodium 2 tab PO DAILY 04/20/21 04/20/21 50 mg tablet (Senexon-S) sodium chloride 0.65 % nasal spray 1 spray INTRANASAL BID PRN 04/20/21 04/20/21 aerosol (Saline Nasal) clotrimazole 1 % topical cream appl TOPICAL 06/05/21 ipratropium 0.5 mg-albuterol 3 mg ml INHALATION QID 06/05/21 (2.5 mg base)/3 mL nebulization soln Previous Rx's Medication Instructions Recorded ferrous sulfate 325 mg (65 mg 325 mg PO DAILY #60 tab 10/17/20 iron) tablet tamoxifen 20 mg tablet 20 mg PO DAILY #90 tab 10/17/20 ibuprofen 600 mg tablet 600 mg PO Q6H PRN #30 tab 05/07/21 oxycodone-acetaminophen 5 mg-325 1 tab PO Q4-6H PRN #30 tab 05/07/21 mg tablet (Percocet) Allergies Allergy/AdvReac Type Severity Reaction Status Date / Time No Known Allergies Allergy Verified 06/05/21 15:05 [No Known Allergies*] Review of Systems Review of Systems: Constitutional : No Fever, No Chills ENT/Mouth : No Hoarseness, No sore throat, No Rhinorrhea Eyes: No Redness, No Discharge, No Vision Changes Cardiovascular : No Chest Pain, positive SOB, positive Dyspnea on Exertion, No Edema Respiratory : positive Cough, No Sputum, positive Wheezing, Gastrointestinal : No Nausea, No Vomiting, No Diarrhea, No abdominal Pain Genitourinary : No Dysuria, No Hematuria Musculoskeletal : No joint pain, No Myalgias Skin : No rash Neuro : No Weakness, No Numbness, No Headache Psych : No anxiety, depression Heme/Lymph: No Bruising, No Bleeding Endocrine : No Polyuria, No Polydipsia All other systems reviewed and are negative PMFSH Past Medical History Attestation statement: The following information was validated with the patient. Source: old records reviewed Medical History Anxiety Breast calcification, left Cecal polyp Depression Diabetes mellitus Ductal carcinoma in situ (DCIS) of breast Elevated cholesterol Family history of breast cancer Hypertension Lobular carcinoma in situ (LCIS) of left breast Nipple discharge Serrated polyp of colon Surgical History H/O breast surgery H/O colonoscopy History of laparoscopic cholecystectomy History of tubal ligation Family History Family History Sister History of breast cancer Social History Social History Household Members: Children Household Members Other:: son 18 yrs old Housing: Apartment Are you a primary nurse care manager to a significant other at home: No Do you presently have visiting nurse or other home services: Yes ([facility] bid for meds, 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) Alcohol intake: never Patient Tobacco Use Status: Current everyday Tobacco user Tobacco use type: Cigarette Cigarette Packs Per Day: 2 Cigarettes Per Day: 40.0 Years Smoked: 30 Substance Use Type: Crack/Cocaine and Former Substance User Advance Directives: Yes Advance Directives Information Provided: Yes Advance Directives on File: No service: No Current occupational status: unemployed Sexual orientation: Straight/Heterosexual Gender identity: Female Physical Exam Vital Signs: Vital Signs: Last Vital Signs Temp 97.7 F 06/12/21 13:03 Pulse 90 06/12/21 13:03 Resp 18 06/12/21 13:03 BP 144/81 H 06/12/21 13:03 Pulse Ox 97 06/12/21 13:03 BMI result Body Mass Index 23.6 Vital signs have been reviewed and appeared to be correct. Blood pressure mildly elevated 144/81 Heart rate normal.? Respiration rate normal. Temperature normal.? Oxygen saturation normal. Appearance: Alert.?Oriented to person, place and time. No acute distress.?Normal affect. Eyes: Pupils equal, round and reactive to light.? ENT: Pharynx normal.?? Neck: Normal inspection.? Neck supple.?? CVS: Heart sounds normal. Normal heart rate and rhythm.? Pulses normal.?? Respiratory: No respiratory distress.? Lung sounds clear to auscultation bilaterally?? Abdomen: Soft and non-tender. Normoactive bowel sounds. No pulsatile mass.?? Skin: Skin warm and dry.? Normal skin color.? Normal skin turgor.?? Extremities: No lower extremity edema.? No calf ttp? Neuro: Moves all extremities spontaneously. Sensation intact bilaterally. CN II-XII intact. No focal neuro deficits. Ambulates with normal steady gait. Course Course Course Narrative: Patient is a 50-year-old female Hypertension 144/81 Reevaluation(s) Reevaluation #1: COVID-19 testing is negative. Chest x-ray is unremarkable with no acute findings. EKG reveals normal sinus rhythm no acute concern for ischemia. MDM - Asthma Medical Records Attestation: I reviewed the patient's medical records. Lab Data Attestation: I reviewed the patient's lab results. Labs: Lab Results 06/12/21 Range/Units 13:14 COVID-19 (MILI) Negative (Negative) COVID-19 Clin Com See Note Imaging Data Chest x-ray: Radiologist's impression: FINDINGS: The lungs are well-expanded and clear of acute process. Heart size and pulmonary vascularity is normal. There is mild levoscoliosis upper dorsal spine. No lytic process. XR/XR chest 2V IMPRESSION: Unremarkable chest exam. ECG Data Attestation: I personally reviewed and interpreted this ECG as follows: ECG interpretation date: 06/12/21 ECG interpretation time: 15:25 Prior ECG tracings: available for review Interpretation: Rate: 84 Rhythm:? Normal sinus rhythm [place]:? Normal Normal P waves.? Normal JOEY.?? Normal QRS complex.?? ST T wave :??Nonspecific ST abnormality qTC: 439 prior studies:? April 2021 The study has been interpreted contemporaneously by me. Discharge Plan Discharge Prescriptions: No Action ferrous sulfate 325 mg (65 mg iron) Tablet 325 mg PO DAILY Qty: 60 3RF tamoxifen 20 mg Tablet 20 mg PO DAILY Qty: 90 4RF Farxiga 5 mg tablet 1 tab PO QAM 0RF Invega Sustenna 234 mg/1.5 mL syringe 234 mg IM Q4W 0RF polyethylene glycol 3350 [Miralax] 17 gram Powder In Packet 17 g PO DAILY 0RF sennosides-docusate sodium [Senexon-S] 8.6-50 mg tablet 2 tab PO DAILY 0RF famotidine 20 mg Tablet 20 mg PO BID 0RF nicotine 21 mg/24 hr patch 24 hour 1 patch transdermal DAILY 0RF albuterol sulfate [ProAir HFA] 90 mcg/actuation Hfa Aerosol Inhaler 2 puff INHALATION Q4-6H PRN (Reason: Shortness Of Breath Or Wheezing) 0RF Saline Nasal 0.65 % Aerosol,[place] 1 spray INTRANASAL BID PRN (Reason: Nasal Congestion) 0RF oxycodone-acetaminophen [Percocet] 5-325 mg tablet 1 tab PO Q4-6H PRN (Reason: pain, severe) Qty: 30 0RF ibuprofen 600 mg tablet 600 mg PO Q6H PRN (Reason: pain) Qty: 30 0RF atorvastatin [Lipitor] 80 mg tablet 80 mg PO DAILY 0RF lisinopril 5 mg tablet 5 mg PO DAILY 0RF docusate sodium [Colace] 100 mg capsule 100 mg PO BID 0RF metformin 1,000 mg tablet 1,000 mg PO BID 0RF insulin lispro protamin-lispro 100 unit/mL (75-25) insulin pen See Rx Instructions .ROUTE .COMPLEX 0RF Rx Instructions: 40 units bid trazodone 100 mg tablet 100 mg PO BEDTIME PRN (Reason: Insomnia) 0RF oxcarbazepine 600 mg tablet 600 mg PO BEDTIME 0RF sertraline [Zoloft] 100 mg tablet 200 mg PO DAILY 0RF quetiapine [Seroquel] 100 mg tablet 100 mg PO DAILY 0RF clotrimazole 1 % cream topical 0RF ipratropium-albuterol 0.5 mg-3 mg(2.5 mg base)/3 mL solution for nebulization inhalation QID 0RF
[2021-06-12 16:15] LABS: IDNOW Serial# 08D9AD1C; Influenza A Negative (Negative); Influenza B2 Negative (Negative)
--- NOTE | 2021-06-12 16:42 | ED_ITS ---
HPI - URI/Sore Throat General Chief Complaint: Upper Respiratory Symptoms Stated Complaint: asthma/chest pains Time Seen by Provider: 06/12/21 15:11 History of Present Illness HPI Narrative: Patient complains of productive cough and body aches, triage note said chest pain but her only chest pain is when she coughs she has no shortness of breath or no exertional chest pain and no chest pain of any kind except when she coughs Related Data Home Medications Medication Instructions Recorded Confirmed atorvastatin 80 mg tablet (Lipitor) 80 mg PO DAILY 05/03/20 04/20/21 docusate sodium 100 mg capsule 100 mg PO BID 05/03/20 04/20/21 (Colace) insulin lispro protamine-lispro See Rx Instructions .ROUTE .COMPLEX 05/03/20 04/20/21 100 unit/mL (75-25) subcutaneous pen lisinopril 5 mg tablet 5 mg PO DAILY 05/03/20 04/20/21 metformin 1,000 mg tablet 1,000 mg PO BID 05/03/20 04/20/21 oxcarbazepine 600 mg tablet 600 mg PO BEDTIME 05/03/20 04/20/21 quetiapine 100 mg tablet (Seroquel) 100 mg PO DAILY 05/03/20 04/20/21 sertraline 100 mg tablet (Zoloft) 200 mg PO DAILY tab 05/03/20 04/20/21 trazodone 100 mg tablet 100 mg PO BEDTIME PRN 05/03/20 04/20/21 dapagliflozin 5 mg tablet (Farxiga) 1 tab PO QAM 01/22/21 04/20/21 paliperidone palmitate 234 mg/1.5 234 mg IM Q4W 02/15/21 04/20/21 mL intramuscular syringe (Invega Sustenna) albuterol sulfate 90 mcg/actuation 2 puff INHALATION Q4-6H PRN 04/20/21 04/20/21 aerosol inhaler (ProAir HFA) famotidine 20 mg tablet 20 mg PO BID 04/20/21 04/20/21 nicotine 21 mg/24 hr daily 1 patch TRANSDERMAL DAILY 04/20/21 04/20/21 transdermal patch polyethylene glycol 3350 17 gram 17 g PO DAILY 04/20/21 04/20/21 oral powder packet (Miralax) sennosides 8.6 mg-docusate sodium 2 tab PO DAILY 04/20/21 04/20/21 50 mg tablet (Senexon-S) sodium chloride 0.65 % nasal spray 1 spray INTRANASAL BID PRN 04/20/21 04/20/21 aerosol (Saline Nasal) clotrimazole 1 % topical cream appl TOPICAL 06/05/21 ipratropium 0.5 mg-albuterol 3 mg ml INHALATION QID 06/05/21 (2.5 mg base)/3 mL nebulization soln Previous Rx's Medication Instructions Recorded ferrous sulfate 325 mg (65 mg 325 mg PO DAILY #60 tab 10/17/20 iron) tablet tamoxifen 20 mg tablet 20 mg PO DAILY #90 tab 10/17/20 ibuprofen 600 mg tablet 600 mg PO Q6H PRN #30 tab 05/07/21 oxycodone-acetaminophen 5 mg-325 1 tab PO Q4-6H PRN #30 tab 05/07/21 mg tablet (Percocet) albuterol sulfate 90 mcg/actuation 2 puff INHALATION Q4-6H PRN #6.7 g 06/12/21 aerosol inhaler (ProAir HFA) doxycycline hyclate 100 mg capsule 100 mg PO BID 7 Days #14 cap 06/12/21 Allergies Allergy/AdvReac Type Severity Reaction Status Date / Time No Known Allergies Allergy Verified 06/05/21 15:05 [No Known Allergies*] Review of Systems Review of Systems: Positive for cough runny nose and body aches Negatives are no fever no chills no dizziness no weakness no headache no neck pain no chest pain except when coughing no shortness of breath no difficulty breathing no abdominal pain no nausea vomiting or diarrhea no calf swelling no leg swelling no calf pain no rash no joint pains Yes all other systems are reviewed and are negative PMFSH Past Medical History Source: nursing notes reviewed Medical History Anxiety Breast calcification, left Cecal polyp Depression Diabetes mellitus Ductal carcinoma in situ (DCIS) of breast Elevated cholesterol Family history of breast cancer Hypertension Lobular carcinoma in situ (LCIS) of left breast Nipple discharge Serrated polyp of colon Surgical History H/O breast surgery H/O colonoscopy History of laparoscopic cholecystectomy History of tubal ligation Family History Family History Sister History of breast cancer Social History Social History Household Members: Children Household Members Other:: son 18 yrs old Housing: Apartment Are you a primary home care scheduler to a significant other at home: No Do you presently have visiting nurse or other home services: Yes ([facility] bid for meds, 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) Alcohol intake: never Patient Tobacco Use Status: Current everyday Tobacco user Tobacco use type: Cigarette Cigarette Packs Per Day: 2 Cigarettes Per Day: 40.0 Years Smoked: 30 Substance Use Type: Crack/Cocaine and Former Substance User Advance Directives: Yes Advance Directives Information Provided: Yes Advance Directives on File: No service: No Current occupational status: unemployed Sexual orientation: Straight/Heterosexual Gender identity: Female Physical Exam Vital Signs: Vital Signs: Last Vital Signs Temp 97.7 F 06/12/21 13:03 Pulse 90 06/12/21 13:03 Resp 18 06/12/21 13:03 BP 144/81 H 06/12/21 13:03 Pulse Ox 97 06/12/21 13:03 BMI result Body Mass Index 23.6 General appearance no acute distress comfortable relax cooperative The eyes no discharge no redness The sinuses nontender The pharynx is clear Neck is supple The chest is clear to auscultation bilateral no respiratory distress Heart no murmur Extremities full range of motion x4 There is no calf tenderness or swelling there is no edema Skin no rash Course Course Course Narrative: Well-appearing patient breathing comfortably COVID negative flu negative x-ray negative is discharged with treatment for bronchitis MDM - URI/Sore Throat Lab Data Labs: Lab Results 06/12/21 06/12/21 Range/Units 13:14 15:40 COVID-19 (MILI) Negative (Negative) COVID-19 Clin Com See Note Influenza Type A ([place]) Negative (Negative) Influenza Type B ([facility]) Negative (Negative) Influenza A & B Note See Note Discharge Plan Discharge Clinical Impression: Bronchitis Patient Disposition: Home, Self-Care Additional Instructions: Your chest x-ray was normal, your COVID test and flu tests were negative Rear treating bronchitis with doxycycline antibiotic Follow with her doctor as needed and return to the ER any time for difficulty breathing any worse condition any concerns Prescriptions: New doxycycline hyclate 100 mg capsule 100 mg PO BID 7 Days Qty: 14 0RF albuterol sulfate [ProAir HFA] 90 mcg/actuation HFA aerosol inhaler 2 puff inhalation Q4-6H PRN (Reason: shortness of breath or wheezing) Qty: 6.7 0RF No Action ferrous sulfate 325 mg (65 mg iron) Tablet 325 mg PO DAILY Qty: 60 3RF tamoxifen 20 mg Tablet 20 mg PO DAILY Qty: 90 4RF Farxiga 5 mg tablet 1 tab PO QAM 0RF Invega Sustenna 234 mg/1.5 mL syringe 234 mg IM Q4W 0RF polyethylene glycol 3350 [Miralax] 17 gram Powder In Packet 17 g PO DAILY 0RF sennosides-docusate sodium [Senexon-S] 8.6-50 mg tablet 2 tab PO DAILY 0RF famotidine 20 mg Tablet 20 mg PO BID 0RF nicotine 21 mg/24 hr patch 24 hour 1 patch transdermal DAILY 0RF albuterol sulfate [ProAir HFA] 90 mcg/actuation Hfa Aerosol Inhaler 2 puff INHALATION Q4-6H PRN (Reason: Shortness Of Breath Or Wheezing) 0RF Saline Nasal 0.65 % Aerosol,[place] 1 spray INTRANASAL BID PRN (Reason: Nasal Congestion) 0RF oxycodone-acetaminophen [Percocet] 5-325 mg tablet 1 tab PO Q4-6H PRN (Reason: pain, severe) Qty: 30 0RF ibuprofen 600 mg tablet 600 mg PO Q6H PRN (Reason: pain) Qty: 30 0RF atorvastatin [Lipitor] 80 mg tablet 80 mg PO DAILY 0RF lisinopril 5 mg tablet 5 mg PO DAILY 0RF docusate sodium [Colace] 100 mg capsule 100 mg PO BID 0RF metformin 1,000 mg tablet 1,000 mg PO BID 0RF insulin lispro protamin-lispro 100 unit/mL (75-25) insulin pen See Rx Instructions .ROUTE .COMPLEX 0RF Rx Instructions: 40 units bid trazodone 100 mg tablet 100 mg PO BEDTIME PRN (Reason: Insomnia) 0RF oxcarbazepine 600 mg tablet 600 mg PO BEDTIME 0RF sertraline [Zoloft] 100 mg tablet 200 mg PO DAILY 0RF quetiapine [Seroquel] 100 mg tablet 100 mg PO DAILY 0RF clotrimazole 1 % cream topical 0RF ipratropium-albuterol 0.5 mg-3 mg(2.5 mg base)/3 mL solution for nebulization inhalation QID 0RF Interventions: ED Discharge Assessment Last Done: 06/12/21 17:01 Discharge Date/Time: 06/12/21 17:02
== END 2021-06-12 17:02 | disposition home or self-care (01) ==
PROVIDERS: Nurse Practitioner Family; Emergency Provider Emergency Medicine
DX: J40 Bronchitis, not specified as acute or chronic (principal); Z20.822 Contact with and (suspected) exposure to COVID-19; E11.9 Type 2 diabetes mellitus without complications; I10 Essential (primary) hypertension; Z79.899 Other long term (current) drug therapy; Z79.4 Long term (current) use of insulin
CPT/HCPCS: 71046; 87502; 87635; 93005; 99283

== ENCOUNTER 2021-06-28 10:38 | Outpatient (REF) | payer MEDICAID, SELFPAY ==
--- NOTE | ~2021-06-28 | US_ITS ---
EXAMINATION: US PELVIS CLINICAL INFORMATION: Pelvic and perineal pain. COMPARISON: None TECHNIQUE: Ultrasound of the pelvis is performed using both transabdominal and transvaginal transducers along with Doppler. Transvaginal imaging is performed due to inadequate visualization transabdominally. FINDINGS: Uterus: The uterus is anteverted and measures 8.5 x 4.7 x 5.7 cm. The double wall endometrial thickness is 1.3 centimeters. The uterus is smooth in contour and has normal myometrial echogenicity. Solitary solid circumscribed hypoechoic mass is identified within the fundus posteriorly, measures 1.0 x 0.8 x 0.8 cm, most consistent with intramural fibroid. Adnexa: Both ovaries are visualized. There is normal color flow to the adnexa. Trace amount of free fluid within the pelvis. Right ovary measures 1.8 x 1.2 x 1.8 cm. Left ovary measures 2.2 x 1.2 x 2.2 cm. Incidental note is made of prominent fluid containing structure within the right adnexal region, may represent prominent bowel loops versus hydrosalpinx. US/US pelvic and transvaginal IMPRESSION: 1. Solitary 1.0 cm hypoechoic solid mass identified within the fundus of the uterus, most consistent with intramural fibroid. 2. Sonographically unremarkable bilateral ovaries. 3. Trace amount of free fluid within the pelvis. 4. Prominent fluid containing structure within the right adnexal region, may represent prominent bowel loop versus hydrosalpinx.
== END 2021-06-28 10:39 | disposition home or self-care (01) ==
LOC: HO.US 10:38
PROVIDERS: Visit Provider Advanced Practice Midwife
DX: R10.2 Pelvic and perineal pain (principal)
CPT/HCPCS: 76830; 76856

== ENCOUNTER → 2021-07-12 10:31 | Outpatient (BNVA) | payer MEDICAID, SELFPAY | PROVIDERS: Visit Provider Advanced Practice Midwife | DX: Z71.2 Person consulting for explanation of examination or test findings (principal) | CPT/HCPCS: 99212 ==

== ENCOUNTER 2022-04-23 12:50 | Outpatient (REF) | payer MEDICAID, SELFPAY ==
--- NOTE | ~2022-04-23 | MM_ITS ---
EXAMINATION: MM DIAGNOSTIC DIGITAL BREAST TOMOSYNTHESIS, BILATERAL CLINICAL INFORMATION: Left DCIS postlumpectomy 06/16/2020. Radiation concluded 10/2020. Benign stereotactic biopsy anterior upper outer left breast 05/03/2020 (cylinder-shaped marker). Due for yearly. COMPARISON: Mammography: Multiple prior exams, most recent 04/19/2021. TECHNIQUE: Digital breast tomosynthesis is performed in both the craniocaudal and mediolateral oblique views along with computer-aided detection (CAD). Synthesized 2D images are generated from the tomosynthesis. Additional views of the left breast are obtained: Magnification left CC x2, magnification left ML. FINDINGS: There are scattered areas of fibroglandular density (ACR BI-RADS breast composition Category b). Breast tissue composition borders on heterogeneously dense. There are minor post therapy changes again seen left breast. Neither breast shows interval mass or architectural abnormality. No abnormal calcifications. The axilla are unremarkable. The skin contours are smooth. There are no significant changes. Results are provided to the patient at time of visit by the technologist. MM/MM tomosynthesis diagnostic BI IMPRESSION: No mammographic evidence of malignancy. ASSESSMENT: BI-RADS 2: Benign RECOMMENDATION: Routine annual mammography screening. This patient's information was entered into a reminder system with a target due date for their next mammogram.
== END 2022-04-23 12:51 | disposition home or self-care (01) ==
LOC: HO.MAMMO 12:50
PROVIDERS: Visit Provider Nurse Practitioner
DX: C50.912 Malignant neoplasm of unspecified site of left female breast (principal)
CPT/HCPCS: 77062; 77066

== ENCOUNTER 2022-05-03 14:23 | Outpatient (REF) | payer MEDICAID, SELFPAY ==
[2022-05-03 16:40] LABS: Hemoglobin 13.9 g/dl (12.0-16.0); Mean Corpuscular HGB Conc 30.9 g/dl (31.0-35.0); Mean Corpuscular Hemoglobin 24.7 pg (27.0-33.0); Mean Corpuscular Volume 79.9 fL (80.0-98.0); Mean Platelet Volume 9.4 fL (9.4-12.3); Platelet Count 268 X10*3/uL (160-400); Red Blood Count 5.63 X10*6/uL (4.20-5.50); Red Cell Distribution Width 22.4 % (11.0-16.0)
[2022-05-03 17:38] LABS: Alanine Aminotransferase 17 U/L (0-31); Albumin Level 4.1 g/dL (3.5-5.0); Alkaline Phosphatase 94 U/L (39-117); Anion Gap 12 (12-20); Aspartate Amino Transferase 13 U/L (5-31); Bilirubin Total 0.3 mg/dL (0.0-1.0); Blood Urea Nitrogen 5 mg/dL (9-16); Calcium 9.9 mg/dL (8.4-10.2); Carbon Dioxide 28 mmol/L (22-29); Chloride 103 mmol/L (96-108); Estimated Glomerular Filt Rate > 60; Folate 15.1 ng/mL (> or = 4.0); Glucose Random 358 mg/dL (60-115); Potassium 3.8 mmol/L (3.3-5.1); Sodium 139 mmol/L (135-145); TSH reflex Free T4 1.41 uIU/mL (0.32-4.0); Total Protein 7.5 g/dL (6.5-8.0); Vitamin B12 1307 pg/mL (200-900)
[2022-05-06 20:58] LABS: Transglutaminase Ab IgG <1.0 U/mL; Transglutaminase IgA <1.0 U/mL
[2022-05-08 16:34] LABS: Vitamin D 25-OH, D2 <4 ng/mL; Vitamin D 25-OH, D3 21 ng/mL; Vitamin D 25-OH, Total 21 ng/mL (30-100)
== END 2022-05-03 14:24 | disposition home or self-care (01) ==
LOC: HO.LAB 14:23
PROVIDERS: PCP Registered Nurse; Visit Provider Nurse Practitioner Family
DX: R10.9 Unspecified abdominal pain (principal); R19.7 Diarrhea, unspecified; E55.9 Vitamin D deficiency, unspecified; K21.9 Gastro-esophageal reflux disease without esophagitis; K59.01 Slow transit constipation
CPT/HCPCS: 36415; 80053; 82306; 82607; 82746; 84443; 85027; 86364; 99202

== ENCOUNTER → 2022-05-15 12:44 | Outpatient (BNVA) | payer MEDICAID, SELFPAY | PROVIDERS: PCP Registered Nurse; Referring Provider Family Medicine; Visit Provider Internal Medicine Cardiovascular Disease | DX: Z86.000 Personal history of in-situ neoplasm of breast (principal); R07.89 Other chest pain | CPT/HCPCS: 93005; 99202; 99212 ==

== ENCOUNTER → 2022-05-28 13:56 | Outpatient (REF) | payer MEDICAID, SELFPAY ==
--- NOTE | 2022-05-28 13:59 | CA_ITS ---
Transthoracic Echocardiogram Patient (Last, First, Middle): Hodan Lopez, Gender: Female Date of : 1970 Age: 51 Procedure Date: 05/28/2022 Procedure Type: Transthoracic Echocardiogram Location: OP Height: 162. cm Weight: 65.77 kg BSA: 1.70 m2 Heart Rate: 62 bpm BP: 100 / 50 mmHg Laborer [place]: AVINASH Referring MD: Dany Hawley MD Heel Coverer Machine Operator: Dany Hawley MD Symptoms: I10 - Essential (primary) hypertension Study Quality: Fair ECG Rhythm: Sinus Conclusions: - Essentially normal study Findings Left Ventricle Normal left ventricular size, thickness, and systolic function. The visually estimated ejection fraction is between 60-65%. Diastolic function is normal for age. Right Ventricle Normal right ventricular cavity size and systolic function. Atria Both atria are normal in size. Interatrial shunt cannot be excluded. Aortic Valve Normal aortic valve structure and function. There is no aortic valve stenosis. There is no aortic valve regurgitation. Mitral Valve Normal mitral valve structure and function. There is no mitral valve regurgitation. There is no mitral valve stenosis. Pulmonic Valve The pulmonic valve is likely normal. Tricuspid Valve Normal tricuspid valve structure. There is trace tricuspid valve regurgitation. The right ventricular systolic pressure is normal. The right ventricular systolic pressure is 18 mmHg. Normal right atrial pressure. There is no evidence of pulmonary hypertension. Great Vessels All visible segments of the aorta are normal in size. The pulmonary artery was not well visualized. Venous The inferior vena cava is normal in size and collapses greater than 50% with inspiration. Pericardium/Pleural There is no evidence of pericardial effusion. Measurements 2D Linear Measurements IVSd: 0.82 0.6-0.9/0.6-1.0 cm LVIDd: 4.67 3.9-5.3/4.2-5.9 cm LVIDd Index: 2.75 2.4-3.2/2.2-3.1 cm/m2 LVIDs: 2.72 2.0-3.6 cm LVPWd: 0.90 0.7-1.1 cm LA Diam: 3.40 2.7-3.8/3.0-4.0 cm LAIDs Index: 2.00 1.5-2.3 cm/m2 LV Mass: 165.81 67-162/88-224 g LV Mass Index: 97.54 43-95/49-115 g/m2 LVOT Diam: 1.90 3.0+(-)1.3 cm 2D Systolic Function EF 4C: 57.60 >55% EF 2C: 64.00 >55% EF BiP: 60.70 >55% Mitral Valve MV Pk E: 0.94 MV PK A: 0.57 MV Decel Time: 230.00 E/A: 1.70 E'Lateral: 12.60 E'Medial: 10.60 E/E' Med: 8.90 E/E' Lat: 7.50 PHT: 67.00 MVA PHT: 3.28 Decel [place]: 4.10 Aortic Valve AoV Pk Pollo: 1.64 AoV Mn Pollo: 1.08 AoV VTI: 0.36 AoV Pk Grad: 11.00 Aov Mn Grad: 5.00 PATO Cont.VTI: 2.34 LVOT LVOT Pk [place]o: 1.47 LVOT Mn Pollo: 0.96 LVOT VTI: 0.29 LVOT Pk Grad: 9.00 LVOT Mn Grad: 4.00 LVOT Diam: 1.90 LVOT Area: 2.84 Diastolic Function MV Pk E: 0.94 MV Pk A: 0.57 E/A: 1.70 E'Medial: 10.60 E/E' Med: 8.90 E' Laterial: 12.60 E/E' Lat: 7.50 Right Ventricle TAPSE (mm): 20.40 TVS' Pollo: 12.40 Tricuspid Valve TR Pk Pollo: 1.96 TR Pk Grad: 15.00 RA Press: 3.00 RVSP: 18.00 Great Vessels Aorta Sinus of Valsalva: 2.80 2.0-3.5 cm Ao Asc: 2.80 2.1-3.4 cm Pulmonary Valve PV Pk Pollo: 0.99 Peak PV Grad: 4.00 Updated in Other Vendor System with Status of Final Dany Hawley MD electronically signed on 05/29/2022 11:01:22 AM with status of Final
== END ==
LOC: HO.CARD 13:56
PROVIDERS: PCP Registered Nurse; Visit Provider Internal Medicine Cardiovascular Disease
DX: I10 Essential (primary) hypertension (principal)
CPT/HCPCS: 93306

== ENCOUNTER 2022-06-07 13:17 | Outpatient (REF) | payer MEDICAID, SELFPAY | END 2022-06-07 13:18 | disposition home or self-care (01) | LOC: HO.LNP 13:17 | PROVIDERS: PCP Registered Nurse; Visit Provider Advanced Practice Midwife | DX: Z13.89 Encounter for screening for other disorder (principal) ==

== ENCOUNTER 2022-06-07 13:59 | Outpatient (REF) | payer MEDICAID, SELFPAY ==
[2022-06-07 15:32] LABS: Syphilis Screen Reactive (Nonreactive)
[2022-06-07 16:00] LABS: CT PCR NOT DETECTED (Not Detect.); NG PCR NOT DETECTED (Not Detect.)
[2022-06-08 10:13] LABS: BV Int Neg Control Negative (Negative); BV Int Pos Control Positive (Positive)
[2022-06-10 08:40] LABS: HBc Num1 0.16 S/CO (0.00-0.79); HIV AB/AG Nonreactive (Nonreactive); HIV Num 1 0.06 S/CO (0.00-0.99); Hepatitis B Core Antibody Nonreactive (Nonreactive); ~HepC Num1 0.13 S/CO (0.00-0.79); ~Hepatitis C Antibody Nonreactive (Nonreactive)
[2022-06-14 12:15] LABS: RPR Quantitative Reactive 1:4 (Nonreactive); T.Pallidum Particle Agg Test Reactive (Nonreactive)
== END 2022-06-07 14:00 | disposition home or self-care (01) ==
LOC: HO.LAB 13:59
PROVIDERS: Visit Provider Advanced Practice Midwife
DX: Z11.4 Encounter for screening for human immunodeficiency virus [HIV] (principal); R10.2 Pelvic and perineal pain; Z20.2 Contact with and (suspected) exposure to infections with a predominantly sexual mode of transmission
CPT/HCPCS: 0353U; 86592; 86704; 86780; 86803; 87389; 87480; 87510; 87660

== ENCOUNTER → 2022-06-20 14:23 | Outpatient (BNVA) | payer MEDICAID, SELFPAY | PROVIDERS: PCP Registered Nurse; Visit Provider Advanced Practice Midwife | DX: Z71.2 Person consulting for explanation of examination or test findings (principal); R10.2 Pelvic and perineal pain; A53.0 Latent syphilis, unspecified as early or late; F17.210 Nicotine dependence, cigarettes, uncomplicated; Z86.19 Personal history of other infectious and parasitic diseases | CPT/HCPCS: 99212 ==

== ENCOUNTER 2022-06-25 15:57 | Outpatient (REF) | payer MEDICAID, SELFPAY ==
--- NOTE | ~2022-06-25 | US_ITS ---
EXAMINATION: US PELVIS CLINICAL INFORMATION: Pelvic and perineal pain. COMPARISON: None available. TECHNIQUE: Ultrasound of the pelvis is performed using both transabdominal and transvaginal transducers along with Doppler. Transvaginal imaging is performed due to inadequate visualization transabdominally. FINDINGS: Uterus: The uterus is anteverted, anteflexed and measures 9.3 x 4.5 x 4.8 cm. The double wall endometrial thickness is 2.3 cm. The uterus is smooth in contour and has normal myometrial echogenicity. There are 2 hypoechoic lesions. 1. Lesion in body of uterus measuring 1.5 x 1.8 x 1.4 cm. Previously it measured 1.0 x 0.8 x 0.8 cm. 2. The 2nd in the left fundus measuring 1.2 x 0.8 x 1.1 cm. Adnexa: Both ovaries are visualized. There is normal color flow to the adnexa. There is no ovarian torsion. There is no pelvic ascites or fluid collection. Right ovary measures 2.3 x 1.4 x 1.4 cm, volume 2.4 mL. It appears unremarkable. Left ovary is not visualized. There is no free fluid in the cul-de-sac. US/US pelvic and transvaginal IMPRESSION: 1. Two uterine fibroids. The fundal fibroid is new. 2. The right ovary is unremarkable. 3. The left ovary is not seen. 4. There is no free fluid in the cul-de-sac.
== END 2022-06-25 15:58 | disposition home or self-care (01) ==
LOC: HO.US 15:57
PROVIDERS: PCP Registered Nurse; Visit Provider Advanced Practice Midwife
DX: R10.2 Pelvic and perineal pain (principal)
CPT/HCPCS: 76830; 76856

== ENCOUNTER 2022-06-28 12:34 | Outpatient (REF) | payer MEDICAID, SELFPAY ==
--- NOTE | ~2022-06-28 | MM_ITS ---
EXAMINATION: BONE DENSITOMETRY CLINICAL INDICATION: Osteopenia. DCIS, on tamoxifen. COMPARISON: None (current study represents initial baseline exam). TECHNIQUE: Using a [place] DXA System (software version: 13.1) manufactured by [employer], dual-energy x-ray absorptiometry was performed of the lumbar spine and left hip. The images are of good technical quality. Summary results are attached. FINDINGS: AP SPINE L1-L4: BMD 1.266 g/cm2, Z-score 1.3, T-score 0.7, normal. LEFT FEMUR, NECK: BMD 0.962 g/cm2, Z-score 0.3, T-score -0.5, normal. LEFT FEMUR, TOTAL: BMD 0.997 g/cm2, Z-score 0.5, T-score -0.1, normal. IDENTIFIED RISK FACTORS: Current smoker. Parental hip fracture. Anticonvulsants. Menopause. HISTORY OF FRACTURE: None listed. MEDICATIONS: Calcium supplement and/or multivitamin. Vitamin D. MM/XR DEXA axial skeleton IMPRESSION: 1. DIAGNOSIS: Normal bone density based on the lowest T-score value of -0.5 in the femoral neck applying World Health Organization criteria. 2. 10-YEAR FRACTURE RISK PREDICTION, FRAX: According to the guidelines, FRAX calculation should only be performed on patients in the osteopenia bone density category.?Therefore, FRAX was not performed on this patient.? 3. Treatment Recommendations: NOF guidelines recommend consideration for treatment in postmenopausal women and men age 50 and older presenting with the following: -A hip or vertebral (clinical or morphometric) fracture. -T-score less than or equal to -2.5 at the femoral neck or spine after appropriate evaluation to exclude secondary causes. -Low bone mass at the hip or spine and a 10-year fracture probability by FRAX of greater than or equal to 3% for hip fracture or greater than or equal to 20% for major osteoporotic fracture based on the [place] adapted WHO algorithm. 4. Other Recommendations: All treatment decisions require clinical judgment and consideration of individual patient factors, including patient preferences, comorbidities, previous drug use, risk factors not captured in the FRAX model (e.g. frailty, falls, vitamin D deficiency, increased bone turnover, interval significant decline in bone density) and possible under or overestimation of fracture risk by FRAX. FUTURE SCAN RECOMMENDATION: People with diagnosed cases of osteoporosis or at high risk for fracture should have regular bone mineral density tests. For patients eligible for Medicare, routine testing is allowed once every 2 years. The testing frequency can be increased to one year for patients who have rapidly progressing disease, those who are receiving or discontinuing medical therapy to restore bone mass, or have additional risk factors.
== END 2022-06-28 12:35 | disposition home or self-care (01) ==
LOC: HO.MAMMO 12:34
PROVIDERS: PCP Registered Nurse; Visit Provider Internal Medicine Medical Oncology
DX: Z13.820 Encounter for screening for osteoporosis (principal); M85.80 Other specified disorders of bone density and structure, unspecified site; K58.2 Mixed irritable bowel syndrome; K59.04 Chronic idiopathic constipation; Z79.899 Other long term (current) drug therapy; Z78.0 Asymptomatic menopausal state
CPT/HCPCS: 77080; 99212

== ENCOUNTER 2022-07-29 | Outpatient (REF) | payer MEDICAID, SELFPAY | END 2022-07-29 00:01 | LOC: CF | PROVIDERS: PCP Registered Nurse; Visit Provider Internal Medicine | DX: Z90.49 Acquired absence of other specified parts of digestive tract (principal); Z86.19 Personal history of other infectious and parasitic diseases | CPT/HCPCS: 99202 ==

== ENCOUNTER → 2022-09-23 10:45 | Outpatient (REF) | payer MEDICAID, SELFPAY ==
--- NOTE | 2022-09-23 10:48 | CA_ITS ---
Acquisition Time: 2022-09-23 11:00:46 Total Exercise Time: 00:05:05 Test Indications: Chest Pain Medications: SEE H Protocol: AIDEN Max HR: 093 BPM 54% of Pred: 170 BPM Max BP: 108/060 mmHG Max Work Load: 7.0 METS Exercise stres test exericse 5 min 5 sec of Aiden protocol achieivng 54% MPHR, with reqyest to stop due to 7/10 left chest stabbing radiating to back, with isolaated PAC, with normotensive response to exercise, without EKG changes. Chest discomfort gradually resolved with rest. Echo images obtained by ALOHA at rest and immediately post exercise. Definity contrast used. Test reviewed with Dr. Rowland. Referred By: Dany Hawley Overread By:
== END ==
LOC: HO.CARD 10:45
PROVIDERS: PCP Registered Nurse; Visit Provider Internal Medicine Cardiovascular Disease
DX: R07.89 Other chest pain (principal); I10 Essential (primary) hypertension; E11.9 Type 2 diabetes mellitus without complications
CPT/HCPCS: 93350; Q9957

== ENCOUNTER 2022-10-21 09:48 | Outpatient (REF) | payer MEDICAID, SELFPAY ==
[2022-10-21 11:46] LABS: MANUAL DIFF FLAG NO
[2022-10-21 12:07] LABS: Basophils Absolute Auto 0.1 X10*3/uL (0.0-0.2); Basophils Percent Auto 0.7 % (0-2); Eosinophils Absolute Auto 0.2 X10*3/uL (0.0-0.4); Eosinophils Percent Auto 1.3 % (0-4); Hematocrit 32.1 % (37.0-47.0); Hemoglobin 9.8 g/dl (12.0-16.0); Imm Gran Abs Auto 0.11 X10*3/uL (0.00-0.03); Imm Gran Pct Auto 0.7 % (0.0-0.4); Lymphocytes Absolute Auto 2.9 X10*3/uL (1.2-4.9); Lymphocytes Percent Auto 18.5 % (20-40); Mean Corpuscular HGB Conc 30.5 g/dl (31.0-35.0); Mean Corpuscular Hemoglobin 27.8 pg (27.0-33.0); Mean Corpuscular Volume 90.9 fL (80.0-98.0); Mean Platelet Volume 8.8 fL (9.4-12.3); Monocytes Absolute Auto 0.9 X10*3/uL (0.1-1.2); Monocytes Percent Auto 5.9 % (2-11); Neutrophils Absolute Auto 11.4 x10*3/uL (2.0-8.3); Neutrophils Percent Auto 72.9 % (45-73); Platelet Count 413 X10*3/uL (160-400); Red Blood Count 3.53 X10*6/uL (4.20-5.50); Red Cell Distribution Width 14.6 % (11.0-16.0); White Blood Count 15.7 X10*3/uL (4.8-10.8)
[2022-10-21 13:12] LABS: Alanine Aminotransferase 10 U/L (0-31); Albumin Level 3.7 g/dL (3.5-5.0); Alkaline Phosphatase 85 U/L (39-117); Anion Gap 12 (12-20); Aspartate Amino Transferase 11 U/L (5-31); Bilirubin Total 0.2 mg/dL (0.0-1.0); Blood Urea Nitrogen 7 mg/dL (9-16); Calcium 9.5 mg/dL (8.4-10.2); Carbon Dioxide 28 mmol/L (22-29); Chloride 101 mmol/L (96-108); Estimated Glomerular Filt Rate > 60; Ferritin 34 ng/mL (10-250); Glucose Random 157 mg/dL (60-115); Potassium 3.6 mmol/L (3.3-5.1); Sodium 137 mmol/L (135-145); Total Protein 7.3 g/dL (6.5-8.0)
[2022-10-23 21:28] LABS: TS Negative Control Passed; TS Panel A 0; TS Panel B 0; TS Positive Control Passed; TSpotTB Negative (Negative)
== END 2022-10-21 09:49 | disposition home or self-care (01) ==
LOC: HO.HHCL 09:48
PROVIDERS: Internal Medicine Medical Oncology; Visit Provider Registered Nurse
DX: Z00.00 Encounter for general adult medical examination without abnormal findings (principal); Z11.1 Encounter for screening for respiratory tuberculosis; D05.10 Intraductal carcinoma in situ of unspecified breast
CPT/HCPCS: 36415; 80053; 82728; 85025; 86481

== ENCOUNTER 2022-11-01 13:19 | Outpatient (AMB) | payer MEDICAID, SELFPAY ==
[2022-11-01 13:23] VITALS: BP 92/60; PULSE 75; BMI 23.8
--- NOTE | 2022-11-01 13:23 | A.OFFVIS_ITS ---
Intake Vital Signs 11/01/22 13:23 Height 5 ft 4 in Weight 138 lb 14.259 oz BMI 23.8 BP 92/60 Blood Pressure Location Lt brachial Position Sitting Pulse 75 Intake Visit Reasons: echo/colonoscopy clearance Intake Note: echo/colonoscopy clearance Ct Scan Tech Required: No Allergies No Known Allergies [No Known Allergies*] Allergy (Verified 11/01/22 13:33) Medication List - Last Reconciled 11/01/22 by DANYA Rosario albuterol sulfate 90 mcg/actuation (ProAir HFA) 2 puffs inhalation Q4-6H PRN atorvastatin (Lipitor) 80 mg PO DAILY budesonide-formoterol 80-4.5 mcg/actuation (Symbicort) 1 puff inhalation BID clotrimazole 1% 1 appl topical BID dapagliflozin propanediol (Farxiga) 1 tab PO QAM docusate sodium (Colace) 100 mg PO BID doxycycline hyclate 100 mg PO QAM ferrous sulfate 325 mg PO DAILY insulin lispro protamin-lispro 100 unit/mL (75-25) 40 units bid ipratropium-albuterol 0.5 mg-3 mg(2.5 mg base)/3 mL 3 mL inhalation Q6-8H PRN lisinopril 5 mg PO DAILY metformin 1,000 mg PO BID nicotine (polacrilex) 4 mg PO oxcarbazepine 600 mg PO BEDTIME paliperidone palmitate (Invega Sustenna) 234 mg IM Q4W polyethylene glycol 3350 (Miralax) 17 grams PO DAILY quetiapine (Seroquel) 100 mg PO DAILY sertraline (Zoloft) 200 mg PO DAILY sodium chloride 0.65% (Saline Nasal) 1 spray intranasal BID PRN tamoxifen 20 mg PO DAILY topiramate (Topamax) 50 mg PO BID trazodone 200 mg PO BEDTIME PRN HPI echo/colonoscopy clearance HPI Details Hodan is a 52 yo female with PMH of diabetes, hypertension, hyperlipidemia, smoking who was evaluated for chest discomfort. She underwent a stress echocardiogram and echocardiogram and now presents for follow-up. Today she reports that she has not had chest discomfort since the day of the stress test. That day she does tribes having severe discomfort when on the treadmill. She does get some shortness of breath with exertion which is not new. No heart palpitations, dizziness, presyncope, syncope, PND, orthopnea or edema. Reports having GI issues and is in need of a colonoscopy. Here with her pillowcase cleaner. Taking all meds as directed. [facility], [facility] Medical History Anxiety Breast calcification, left Cecal polyp Depression Diabetes mellitus Ductal carcinoma in situ (DCIS) of breast Elevated cholesterol Family history of breast cancer History of ductal carcinoma in situ (DCIS) of breast History of syphilis History of syphilis Hypertension Lobular carcinoma in situ (LCIS) of left breast Nipple discharge Serrated polyp of colon Surgical History H/O breast surgery H/O colonoscopy History of laparoscopic cholecystectomy History of tubal ligation Family History Sister History of breast cancer Social History Household Members: Children Household Members Other:: son 18 yrs old Housing: Apartment Are you a primary vp care management to a significant other at home: No Do you presently have visiting nurse or other home services: Yes ([facility] bid for meds, B[employer]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) Alcohol intake: never Patient Tobacco Use Status: Current everyday Tobacco user Tobacco use type: Cigarette Cigarette Packs Per Day: 2 Years Smoked: 30 Substance Use Type: Crack/Cocaine and Former Substance User service: No Current occupational status: unemployed Sexual orientation: Straight/Heterosexual Gender identity: Female Female Reproductive History Menstrual Age of Menarche: 14 Review of Systems Const All systems reviewed & are unremarkable except as noted in HPI and below ENT Reports dizziness Card Reports chest pain (On day of stress test), Denies chest pain at rest, Denies chest pain with activity, Denies rapid heart rate, Denies pedal edema, Denies edema, Denies leg edema, Denies lightheadedness, Denies palpitations, Denies dyspnea, Denies dyspnea on exertion and Denies orthopnea Resp Denies cough, Denies dyspnea and Denies dyspnea on exertion GI Denies hematochezia and Denies change in stool character Musc Denies abnormal gait, Denies limited range of motion, Denies muscle cramps, Denies muscle weakness, Denies numbness, Denies radiating pain into limb, Denies stiffness and Denies tingling Neuro Denies abnormal gait, Reports dizziness, Denies numbness and Denies tingling Endo Denies palpitations Physical Exam Vital Signs: Last Vital Signs Pulse 75 11/01/22 13:23 BP 92/60 11/01/22 13:23 BMI result Body Mass Index 23.8 Const General: cooperative, healthy appearing, comfortable and no acute distress Orientation/consciousness: patient oriented x3 Neck Neck: Yes normal visual inspection Resp Effort & Inspection: normal respiratory effort Auscultation: clear to auscultation bilaterally, no crackles, no rales, no rhonchi and no wheezes Cardio Jugular venous distension: no JVD Rate: regular rate Rhythm: regular rhythm Heart sounds: S1 normal heart sound present, S2 normal heart sound present, no gallops, no murmurs and no rubs Neuro General: patient oriented x3 Extrem General: Yes normal to inspection Psych Appearance: grossly normal Mental Status: mental status grossly normal Speech and movement: Normal speech and movement present Office Procedures EKG Details: Today, read by me, normal sinus rhythm, nonspecific T abnormality, rate 75, QTC 428 millisecond [id number], Complete Assessment & Plan Assessment & Plan (1) Chest discomfort: Code(s): R07.89 - Other chest pain Plan: Cardiac evaluation for chest discomfort. Previously described as sharp pressure lasting a few minutes and resolving. No clear exertional component. She does have longstanding history of diabetes, hyperlipidemia, hypertension and smoking 1 pack a day for greater than 25 years. She underwent an echocardiogram on 05/28/2022 showing normal study, EF 60-65%. Exercise stress echo done 09/23/2022 with exercise 5 minutes achieving 54% of MPHR and having 7/10 left stabbing chest discomfort without noted EKG changes. Report not completed at the time of this visit however test will be nondiagnostic due to suboptimal heart rate. At this time she denies having recurrent chest discomfort since the time of the stress test. She admits to being mostly sedentary. An EKG done today showing normal sinus rhythm with nonspecific T-wave abnormalities. Will order a pharmacological nuclear stress test to further evaluate for ischemia. Plan to call her with results. If stress test is normal then chest discomfort is likely non cardiac in nature. She would need ongoing cardiac risk factor modification including good blood pressure, blood sugar and cholesterol control. Blood pressure currently 92/60. [place] LDL goal less than 70 in patient with diabetes. Hemoglobin A1c goal less than 7. Will plan for cardiology follow-up if stress test abnormal otherwise will be as needed. (2) Preop cardiovascular exam: Code(s): Z01.810 - Encounter for preprocedural cardiovascular examination Plan: Preop for colonoscopy. Cardiac testing as above. If stress test is normal she may proceed with low cardiac risk. If stress test is abnormal then cardiac risk will be readdressed. Orders: Orders CA lexiscan stress w toribio Today E11.9 - Type 2 diabetes mellitus without complications, I10 - Essential (primary) hypertension, R07.89 - Other chest pain NM cardiolite stress test Today E11.9 - Type 2 diabetes mellitus without complications, I10 - Essential (primary) hypertension, R07.89 - Other chest pain Coding Level of Care Code Est Pt Level 3 (02583) Diagnoses Chest discomfort R07.89 Preop cardiovascular exam Z01.810 CPT Codes EKG - CPT: 72189-[id number], Complete ([id number]) Time Spent (min) 22 Comment Chart review, documentation, interview, assessment
== END 2022-11-01 13:48 | disposition home or self-care (01) ==
PROVIDERS: PCP Registered Nurse; Referring Provider Registered Nurse; Visit Provider Nurse Practitioner Family
DX: R07.89 Other chest pain (principal); Z01.810 Encounter for preprocedural cardiovascular examination
CPT/HCPCS: 93010; 99213

== ENCOUNTER → 2022-11-01 13:19 | Outpatient (BNVA) | payer MEDICAID, SELFPAY | PROVIDERS: PCP Registered Nurse; Referring Provider Registered Nurse; Visit Provider Nurse Practitioner Family | DX: Z01.810 Encounter for preprocedural cardiovascular examination (principal); R07.89 Other chest pain | CPT/HCPCS: 93005; 99212; 99213 ==

== ENCOUNTER 2022-11-25 15:02 | Outpatient (AMB) | payer MEDICAID, SELFPAY ==
--- NOTE | 2022-11-25 15:11 | MHC.OFFVIS ---
Intake Vital Signs 11/25/22 15:12 Height 5 ft 4 in Weight 143 lb 4.807 oz BMI 24.6 BP 126/57 L Blood Pressure Location Rt brachial Position Sitting Pulse 74 Intake Visit Reasons: 6 month breast exam Intake Note: This patient presents for a six month follow-up breast examination assessment. Patient c/o; reports bilateral nipple itching, denies breast mass or lump, denies breast pain or tenderness. 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 Accompanied by: Caitlin-Complaint Clerk Allergies No Known Allergies [No Known Allergies*] Allergy (Verified 11/25/22 15:25) Medication List - Last Reconciled 11/25/22 by Manoj Locke MD albuterol sulfate 90 mcg/actuation (ProAir HFA) 2 puffs inhalation Q4-6H PRN atorvastatin (Lipitor) 80 mg PO DAILY budesonide-formoterol 80-4.5 mcg/actuation (Symbicort) 1 puff inhalation BID clotrimazole 1% 1 appl topical BID dapagliflozin propanediol (Farxiga) 1 tab PO QAM docusate sodium (Colace) 100 mg PO BID doxycycline hyclate 100 mg PO QAM ferrous sulfate 325 mg PO DAILY insulin lispro protamin-lispro 100 unit/mL (75-25) 40 units bid ipratropium-albuterol 0.5 mg-3 mg(2.5 mg base)/3 mL 3 mL inhalation Q6-8H PRN lisinopril 5 mg PO DAILY metformin 1,000 mg PO BID nicotine (polacrilex) 4 mg PO oxcarbazepine 600 mg PO BEDTIME paliperidone palmitate (Invega Sustenna) 234 mg IM Q4W polyethylene glycol 3350 (Miralax) 17 grams PO DAILY quetiapine (Seroquel) 100 mg PO DAILY sertraline (Zoloft) 200 mg PO DAILY sodium chloride 0.65% (Saline Nasal) 1 spray intranasal BID PRN tamoxifen 20 mg PO DAILY topiramate (Topamax) 50 mg PO BID trazodone 200 mg PO BEDTIME PRN HPI 6 month breast exam HPI Details She is here for follow-up for history of DCIS. She had undergone lumpectomy DCIS of the left breast in June 2020. She has completed treatment with radiation as well. She denies any palpable breast masses or nipple or skin changes She says she feels well overall. She still is in the care of a orthodontic band maker who comes with her for appointments although she lives alone. [facility] Medical History Anxiety Breast calcification, left Cecal polyp Depression Diabetes mellitus Ductal carcinoma in situ (DCIS) of breast Elevated cholesterol Family history of breast cancer History of ductal carcinoma in situ (DCIS) of breast History of syphilis History of syphilis Hypertension Lobular carcinoma in situ (LCIS) of left breast Nipple discharge Serrated polyp of colon Surgical History H/O breast surgery H/O colonoscopy History of laparoscopic cholecystectomy History of tubal ligation Family History Sister History of breast cancer Social History Household Members: Children Household Members Other:: son 18 yrs old Housing: Apartment Are you a primary home care attendant to a significant other at home: No Do you presently have visiting nurse or other home services: Yes ([facility] bid for meds, 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) Alcohol intake: never Patient Tobacco Use Status: Current everyday Tobacco user Tobacco use type: Cigarette Cigarette Packs Per Day: 2 Years Smoked: 30 Substance Use Type: Crack/Cocaine and Former Substance User service: No Current occupational status: unemployed Sexual orientation: Straight/Heterosexual Gender identity: Female Female Reproductive History Menstrual Age of Menarche: 14 Review of Systems Const Denies chills and Denies fever(s) Card Denies chest pain, Denies dyspnea and Denies dyspnea on exertion Resp Denies cough, Denies dyspnea and Denies dyspnea on exertion GI Denies hematochezia and Denies change in bowel habits Denies hematuria Musc Denies back pain and Denies limited range of motion Neuro Denies focal weakness and Denies convulsions Psych Denies depression and Denies mood swings Physical Exam Const General: comfortable and no acute distress Orientation/consciousness: patient oriented x3 Neck Neck: Yes no lymphadenopathy Chest Other: No palpable breast masses, no nipple or skin changes, no axillary lymphadenopathy Resp Auscultation: clear to auscultation bilaterally Cardio Rhythm: regular rhythm GI Palpation (GI): Soft to palpation, nontender and no guarding Neuro General: patient oriented x3 Assessment & Plan Assessment & Plan (1) History of ductal carcinoma in situ (DCIS) of breast: Code(s): Z86.000 - Personal history of in-situ neoplasm of breast Plan: Current physical exam does not reveal any changes with regards to her breast. There are no palpable breast masses or any nipple or skin changes Her last mammogram was in April, and this was unremarkable. I reminded her to continue doing regular screening mammograms. I can see her in the office after her next mammogram next year. Coding Level of Care Code Est Pt Level 3 (51884) Diagnoses History of ductal carcinoma in situ (DCIS) of breast Z86.000
[2022-11-25 15:12] VITALS: BP 126/57; PULSE 74; BMI 24.6
== END 2022-11-25 15:38 | disposition home or self-care (01) ==
PROVIDERS: PCP Registered Nurse; Visit Provider Surgery
DX: Z86.000 Personal history of in-situ neoplasm of breast (principal)
CPT/HCPCS: 99213

== ENCOUNTER → 2022-11-25 15:02 | Outpatient (BNVA) | payer MEDICAID, SELFPAY | PROVIDERS: PCP Registered Nurse; Visit Provider Surgery | DX: Z86.000 Personal history of in-situ neoplasm of breast (principal) | CPT/HCPCS: 99212 ==

== ENCOUNTER → 2022-12-02 09:19 | Outpatient (REF) | payer MEDICAID, SELFPAY ==
--- NOTE | ~2022-12-02 | NM_ITS ---
Lexiscan Myocardial perfusion study Indication: Chest pain, shortness of breath, preoperative evaluation Technique: The patient was brought in for a Lexiscan perfusion study on 12/02/2022 and was injected 0.4 mg of Lexiscan intravenously. Within a minute of this injection 25 mCi of sestamibi was given intravenously. Images were obtained using the SPECT gamma camera interlaced with the gating device. Images were obtained in supine position. Resting perfusion study was performed on 12/04/2022. Patient was administered 25 mCi of sestamibi intravenously at rest. Images were then obtained in supine position. Images were processed with the software and compared side to side in short axis, horizontal long axis and vertical long axis views. Total DLP 85mGy-cm. Findings: Raw acquisition reviewed. The stress perfusion study showed no significant perfusion abnormality. Both uncorrected as well as CT attenuation corrected images were reviewed. The gated study shows normal LV systolic function with calculated LVEF of 65%. LV cavity is normal in size. The gated study shows normal wall thickening and contraction of segments. Resting study shows no significant perfusion abnormality. Gating at rest reveals normal wall motion with ejection fraction at 74%. The findings are consistent with no clear reversible or fixed perfusion abnormality. NM/NM cardiolite stress test Impression: 1. Myocardial perfusion imaging study shows normal myocardial perfusion. 2. Gated LVEF is 65% during stress and 74% during rest. 3. Transient ischemic dilatation not present. EKG component of the test reported separately.
--- NOTE | 2022-12-02 09:22 | CA_ITS ---
Acquisition Time: 2022-12-02 09:41:26 Total Exercise Time: 00:02:00 Test Indications: CP, SOB, PREOP Medications: SEE H Protocol: LEXISCAN Max HR: 096 BPM 56% of Pred: 170 BPM Max BP: 118/066 mmHG Max Work Load: 1.0 METS Pharmacological stress test with Lexiscan injection while sitting and kicking her legs, without anginal symptoms, without arrhythmias, with normotensive response to injection, without EKG changes. Nuclear images pending. Test reviewed with Dr. Hawley. Referred By: Rowan Gonzalez Overread By: Omayra Ware
== END ==
LOC: HO.CARD 09:19
PROVIDERS: PCP Registered Nurse; Visit Provider Nurse Practitioner Family
DX: R07.89 Other chest pain (principal); I10 Essential (primary) hypertension; E11.9 Type 2 diabetes mellitus without complications
CPT/HCPCS: 78452; 93017; A9500; J0280; J2785

== ENCOUNTER → 2022-12-02 09:22 | Outpatient (BNV) | payer MEDICAID, SELFPAY | PROVIDERS: PCP Registered Nurse; Visit Provider Nurse Practitioner | DX: R07.89 Other chest pain (principal); R06.02 Shortness of breath | CPT/HCPCS: 78452; 93016; 93018 ==

== ENCOUNTER 2023-02-04 15:30 | Outpatient (REF) | payer MEDICAID, SELFPAY ==
--- NOTE | ~2023-02-04 | CT_ITS ---
EXAMINATION: CT HEAD WITHOUT CONTRAST CLINICAL INFORMATION: Headache. COMPARISON: CT head from 04/23/2015. TECHNIQUE: Contiguous axial imaging was performed from the skull base to vertex without intravenous administration of contrast. This CT examination was performed using dose optimization techniques as appropriate, variously including the following: *Automated exposure control. *Adjustment of mA and/or kV according to patient size (this includes techniques or standardized protocols for targeted exams where dose is matched to indication/reason for exam; i.e. extremities or head). *Use of iterative reconstruction technique. DLP: 675 mGy-cm FINDINGS: There is no evidence of acute intracranial hemorrhage or edematous territorial infarction. Burns-white matter differentiation is preserved. There is no abnormal attenuation within the brain parenchyma. The ventricles are normal in morphology and size. No evidence for obstructive hydrocephalus. The suprasellar cistern remains widely patent. Normal positioning of the cerebellar tonsils. No abnormal mass effect or midline shift. No extra-axial fluid collections. 1.2 nonspecific cm region of cutaneous thickening and subcutaneous fat stranding in the left posterior scalp. No additional acute soft tissue or osseous abnormalities. The mastoid air cells and visualized paranasal sinuses are clear. CT/CT head/brain wo IV con IMPRESSION: 1. No evidence of acute intracranial hemorrhage or edematous territorial infarction. 2. Nonspecific 1.2 cm region of cutaneous thickening and subcutaneous fat stranding in the left posterior scalp.
== END 2023-02-04 15:31 | disposition home or self-care (01) ==
LOC: HO.CT 15:30
PROVIDERS: PCP Registered Nurse; Visit Provider Registered Nurse
DX: R51.9 Headache, unspecified (principal)
CPT/HCPCS: 70450

== ENCOUNTER 2023-05-06 10:48 | Outpatient (REF) | payer MEDICAID, SELFPAY ==
--- NOTE | ~2023-05-06 | MM_ITS ---
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 History of benign stereotactic biopsy anterior upper outer left breast. Patient also due for yearly. COMPARISON: Mammography: Multiple prior exams, most recently 04/23/2022, and dating back to 01/11/2020. TECHNIQUE: Digital breast tomosynthesis is performed in both the craniocaudal and mediolateral oblique views along with computer-aided detection (CAD). Synthesized 2D images are generated from the tomosynthesis. In addition to standard views, 2-D spot magnification views of the left breast upper outer quadrant lumpectomy site were also obtained. FINDINGS: The breasts are heterogeneously dense, which may obscure small masses (ACR BI-RADS breast composition Category c). Left breast continues to resolve in terms of trabecular thickening and postradiation changes as well as scarring from lumpectomy. Trabecular pattern is overall stable. No suspicious masses, new suspicious calcifications, or new areas of architectural distortion identified. This concludes 3 year surveillance left breast post lumpectomy. The right breast demonstrates a focal asymmetry in the approximate 8:00 periareolar far anterior right breast, seen on both CC and MLO views. Spot magnification views demonstrated partial effacement of this asymmetry although a persistent circumscribed 4 mm mass was present in the approximate 9:00 axis, only seen on the CC projection. No MLO correlate. This could also represent summation artifact.. We will evaluate this with ultrasound. There are stable loosely grouped calcifications in the slightly outer central right breast, without change. Otherwise, no additional suspicious findings right breast. No axillary or skin abnormalities. ULTRASOUND: CLINICAL INFORMATION: Evaluate circumscribed oval 4 mm mass right breast periareolar 8:00 axis. COMPARISON: 01/11/2020. TECHNIQUE: Targeted sonographic evaluation right breast lateral periareolar region was performed using a high frequency linear transducer. Selected archived documentation. FINDINGS: RIGHT BREAST: There is a mixture of fatty and fibroglandular tissue. No suspicious mass is seen. There is no pathologic acoustic shadowing. There are no cystic abnormalities. There is no significant ductal ectasia. Finding on mammography it was likely related to superimposition. MM/MM tomosynthesis diagnostic BI IMPRESSION: There are no findings suspicious for malignancy in either breast. Continuing resolution of postradiation and lumpectomy changes left breast. Stable benign findings right breast. Recommend resuming routine annual bilateral screening mammography in one year. OVERALL ASSESSMENT: Mammography: BI-RADS 2 - Benign Findings Ultrasound: BI-RADS 2 - Benign Findings RECOMMENDATION: 1 year F/U This patient's information was entered into a reminder system with a target due date for their next mammogram.
== END 2023-05-06 10:49 | disposition home or self-care (01) ==
LOC: HO.MAMMO 10:48
PROVIDERS: PCP Registered Nurse; Visit Provider Registered Nurse
DX: Z85.3 Personal history of malignant neoplasm of breast (principal); Z98.890 Other specified postprocedural states
CPT/HCPCS: 76642; 77062; 77066

== ENCOUNTER → 2023-05-06 11:30 | Outpatient (BNV) | payer MEDICAID, SELFPAY | PROVIDERS: PCP Registered Nurse; Visit Provider Radiology Diagnostic Radiology | DX: D05.12 Intraductal carcinoma in situ of left breast (principal) | CPT/HCPCS: 76642; 77062; 77066 ==

== ENCOUNTER 2023-07-28 13:54 | Outpatient (AMB) | payer MEDICAID, SELFPAY ==
--- NOTE | 2023-07-28 13:57 | MHC.OFFVIS ---
Vital Signs 07/28/23 13:58 Height 5 ft 4 in Weight 153 lb 7.068 oz BMI 26.3 BP 99/54 L Blood Pressure Location Lt brachial Position Sitting Pulse 84 Intake Visit Reasons: Needs refill Intake Note: Patient returns to in office follow up of constipation. CC: Patient states that her abdomen is very swollen and she hasn't had a BM in 3 weeks. She c/o rectal pain, abdominal pain, and lower back pain. 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 She can continue taking Colace and Senokot. Patient does have occasional diarrhea. Patient was encouraged to avoid dietary triggers. Avoid lactose and carbs. Low FODMAP diet discussed with patient. List of food recommended as well as list of food to avoid given to patient. IBS (irritable bowel syndrome) Symptoms of postprandial abdominal bloating occasional loose stools but mainly patient has constipation. Now that she is moving her bowels better she reports to be less bloated. Patient can continue Colace and senna. Patient will need to be scheduled for colonoscopy, however due to her symptoms of chest pain patient needs to be cleared by Cardiology. Patient has stress test in August. Patient denies melena, hematochezia, unintentional weight loss or ribbon like stools. TODAY'S VISIT: Patient is here today for follow-up. Patient missed couple of appointments, last seen 1 year ago. Patient states that she is taking senna and Colace and still has no bowel movements. No BM for 3 weeks. Abdominal pain and distension. Reports to feel rectal pain and pressure-like she is to have a bowel movement. Patient denies any nausea or vomiting. Reports to have good appetite. Denies dyspepsia, dysphagia or odynophagia. Denies melena, hematochezia, unintentional weight loss or ribbon like stools. Colonoscopy is scheduled for January. Patient denies any any other GI concerning symptoms. Patient had cardiac stress test done last year that was normal. Patient is cleared to go for procedure. Patient has no new cardiac or respiratory symptoms. [facility] Medical History Anxiety Breast calcification, left Cecal polyp Depression Diabetes mellitus Ductal carcinoma in situ (DCIS) of breast Elevated cholesterol Family history of breast cancer History of ductal carcinoma in situ (DCIS) of breast History of syphilis History of syphilis Hypertension Lobular carcinoma in situ (LCIS) of left breast Nipple discharge Serrated polyp of colon Surgical History History of laparoscopic cholecystectomy H/O colonoscopy H/O breast surgery History of tubal ligation Family History Sister History of breast cancer Social History Household Members: Children Household Members Other:: son 18 yrs old Housing: Apartment Are you a primary care specialist to a significant other at home: No Do you presently have visiting nurse or other home services: Yes ([facility] bid for meds, 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) Alcohol intake: never Patient Tobacco Use Status: Current everyday Tobacco user Tobacco use type: Cigarette Cigarette Packs Per Day: 2 Years Smoked: 30 Substance Use Type: Crack/Cocaine and Former Substance User service: No Current occupational status: unemployed Sexual orientation: Straight/Heterosexual Gender identity: Female Female Reproductive History Menstrual Age of Menarche: 14 Review of Systems Const Denies weight gain and Denies weight loss ENT Reports no additional complaints, Denies dysphagia and Denies odynophagia Card Reports no additional complaints Resp Reports no additional complaints GI Reports abdominal pain (Cramping), Denies belching, Denies melena, Reports bloating, Reports constipation, Denies dysphagia, Denies excessive flatus, Denies dyspepsia, Denies heartburn, Denies diarrhea, Denies loose stools, Denies nausea, Denies odynophagia, Denies vomiting and Reports other Reports no additional complaints Musc Reports no additional complaints Neuro Reports no additional complaints Psych Reports no additional complaints Endo Reports no additional complaints Physical Exam Vital Signs: BMI result Body Mass Index 26.3 Const General: healthy appearing, no acute distress and well developed Nutritional Appearance: well nourished Orientation/consciousness: patient oriented x3 Eyes General: appearance normal, both eyes and all related structures Neck Neck: Yes normal visual inspection, Yes full ROM and Yes trachea midline Thyroid: Thyroid normal Resp Effort & Inspection: normal respiratory effort, able to speak in complete sentences, no tracheal deviation and symmetric chest movement Auscultation: clear to auscultation bilaterally Cardio Rate: regular rate GI Inspection: Yes normal to inspection and Yes distended Palpation (GI): Soft to palpation, not firm and nontender Auscultation: Hypoactive bowel sounds present General: Yes no CVA tenderness Back/Spine/Pelvis Back: no CVA tenderness Skin General skin exam: elasticity normal, turgor normal and dry skin Neuro General: patient oriented x3 Psych Appearance: grossly normal Mental Status: mental status grossly normal Assessment & Plan Assessment & Plan (1) Constipation: Code(s): K59.00 - Constipation, unspecified Qualifiers: Constipation type: chronic idiopathic constipation Qualified Code(s): K59.04 - Chronic idiopathic constipation (2) IBS (irritable bowel syndrome): Code(s): K58.9 - Irritable bowel syndrome without diarrhea Qualifiers: Irritable bowel syndrome type: without diarrhea Qualified Code(s): K58.9 - Irritable bowel syndrome without diarrhea (3) Postprandial abdominal bloating: Code(s): R14.0 - Abdominal distension (gaseous) Plan Patient will take milk of magnesia today and will start taking Dulcolax tablets. Patient will go for x-ray. Phone call made to lining caser who did not come to her visit today and will bring patient for her x-ray tomorrow. Patient was encouraged to increase fluid intake and activity to promote better bowel motility. Patient will return to the office in 6 weeks, sooner on as needed basis. She is agreeable to this plan and verbalizes understanding of instructions. She was given the opportunity to ask questions and all questions answered. Thank you for allowing me to participate in her care Orders: Orders XR KUB Today K59.00 - Constipation, unspecified Medications: New bisacodyl (Dulcolax (bisacodyl)) 10 mg (2 x 5 mg) PO BEDTIME 180 tabs 4RF magnesium hydroxide (Milk of Magnesia) 10 mL PO DAILY PRN 355 mL 0RF constipation Coding Level of Care Code Est Pt Level 3 (25763) Diagnoses Chronic idiopathic constipation K59.04 Constipation type: chronic idiopathic constipation Irritable bowel syndrome without diarrhea K58.9 Irritable bowel syndrome type: without diarrhea Postprandial abdominal bloating R14.0 Time Spent (min) 30 Comment 20 minutes spent with patient and additional 10 minutes spent reviewing her records
[2023-07-28 13:58] VITALS: BP 99/54; PULSE 84; BMI 26.3
== END 2023-07-28 15:04 | disposition home or self-care (01) ==
PROVIDERS: PCP Registered Nurse; Visit Provider Nurse Practitioner Family
DX: K59.04 Chronic idiopathic constipation (principal); K58.9 Irritable bowel syndrome, unspecified; R14.0 Abdominal distension (gaseous)
CPT/HCPCS: 99213

== ENCOUNTER → 2023-07-28 13:54 | Outpatient (BNVA) | payer MEDICAID, SELFPAY | PROVIDERS: PCP Registered Nurse; Visit Provider Nurse Practitioner Family | DX: K59.04 Chronic idiopathic constipation (principal); K58.9 Irritable bowel syndrome, unspecified; R14.0 Abdominal distension (gaseous) | CPT/HCPCS: 99212 ==

== ENCOUNTER 2023-07-30 13:20 | Outpatient (REF) | payer MEDICAID, SELFPAY ==
--- NOTE | ~2023-07-30 | XR_ITS ---
EXAMINATION: XR ABDOMEN KUB CLINICAL INDICATION: Constipation, unspecified COMPARISON: None available. TECHNIQUE: AP view of the abdomen. FINDINGS: The bowel gas pattern is normal with no evidence of ileus or obstruction. Anastomotic sutures and surgical clips are seen in the right lower quadrant. There is a mild amount of stool within the hepatic flexure, descending colon and sigmoid colon. Findings are not consistent with constipation. No unusual soft tissue calcifications are noted. The bones are unremarkable. XR/XR KUB IMPRESSION: Mild amount of stool within the colon, not consistent with constipation.
[2023-07-30 13:34] LABS: MANUAL DIFF FLAG NO
[2023-07-30 14:03] LABS: Basophils Absolute Auto 0.1 X10*3/uL (0.0-0.2); Basophils Percent Auto 0.8 % (0-2); Eosinophils Absolute Auto 0.2 X10*3/uL (0.0-0.4); Eosinophils Percent Auto 1.6 % (0-4); Hematocrit 42.7 % (37.0-47.0); Hemoglobin 13.5 g/dl (12.0-16.0); Imm Gran Abs Auto 0.05 X10*3/uL (0.00-0.03); Imm Gran Pct Auto 0.4 % (0.0-0.4); Lymphocytes Absolute Auto 2.8 X10*3/uL (1.2-4.9); Mean Corpuscular HGB Conc 31.6 g/dl (31.0-35.0); Mean Corpuscular Hemoglobin 28.4 pg (27.0-33.0); Mean Corpuscular Volume 89.9 fL (80.0-98.0); Mean Platelet Volume 9.3 fL (9.4-12.3); Monocytes Absolute Auto 0.7 X10*3/uL (0.1-1.2); Monocytes Percent Auto 5.6 % (2-11); Neutrophils Absolute Auto 7.8 x10*3/uL (2.0-8.3); Neutrophils Percent Auto 67.6 % (45-73); Platelet Count 299 X10*3/uL (160-400); Red Blood Count 4.75 X10*6/uL (4.20-5.50); Red Cell Distribution Width 13.2 % (11.0-16.0); White Blood Count 11.6 X10*3/uL (4.8-10.8)
[2023-07-30 14:42] LABS: Alanine Aminotransferase 12 U/L (0-31); Albumin Level 3.8 g/dL (3.5-5.0); Alkaline Phosphatase 83 U/L (39-117); Anion Gap 14 (12-20); Aspartate Amino Transferase 13 U/L (5-31); Bilirubin Total 0.2 mg/dL (0.0-1.0); Blood Urea Nitrogen 15 mg/dL (9-16); Calcium 9.4 mg/dL (8.4-10.2); Carbon Dioxide 22 mmol/L (22-29); Chloride 106 mmol/L (96-108); Cholesterol 201 mg/dL (<200); Estimated Glomerular Filt Rate > 60; Glucose Random 141 mg/dL (60-115); HDL Cholesterol 44 mg/dL (>40); LDL Cholesterol Calculated 111 mg/dL (<100); Potassium 3.8 mmol/L (3.3-5.1); Sodium 138 mmol/L (135-145); Total Protein 7.8 g/dL (6.5-8.0); Triglycerides 232 mg/dL (<150)
[2023-07-30 14:59] LABS: TSH reflex Free T4 1.01 uIU/mL (0.32-4.0); Vitamin D 25-OH Total 29.4 ng/mL (>30)
[2023-08-01 10:38] LABS: RPR Rapid Plasma Reagin REACTIVE (NON-REACTIVE)
== END 2023-07-30 13:21 | disposition home or self-care (01) ==
LOC: HO.XRAY 13:20
PROVIDERS: PCP Registered Nurse; Visit Provider Nurse Practitioner Family
DX: Z00.00 Encounter for general adult medical examination without abnormal findings (principal); E11.9 Type 2 diabetes mellitus without complications; Z79.4 Long term (current) use of insulin; E55.9 Vitamin D deficiency, unspecified; Z86.19 Personal history of other infectious and parasitic diseases; K59.00 Constipation, unspecified
CPT/HCPCS: 36415; 74018; 80053; 80061; 82306; 84443; 85025; 86592; 86593

== ENCOUNTER 2023-10-31 13:00 | Outpatient (RCR) | payer MEDICAID, SELFPAY | END 2024-06-23 11:42 | disposition home or self-care (01) | LOC: HO.PT 13:00 | PROVIDERS: PCP Registered Nurse; Visit Provider Registered Nurse | DX: M54.9 Dorsalgia, unspecified (principal); G89.29 Other chronic pain | CPT/HCPCS: 97110; 97161 ==

== ENCOUNTER 2023-11-04 10:59 | Emergency (ER) | payer MEDICAID, SELFPAY ==
[2023-11-04] VITALS (7 sets, daily range): BP systolic 102–122; BP diastolic 54–71; PULSE 63–70; RESP 16–20; TEMP 36.1–36.6; O2SAT 99–100; BMI 30.4
--- NOTE | ~2023-11-04 | CT_ITS ---
EXAMINATION: CT CERVICAL SPINE WITHOUT CONTRAST CLINICAL INFORMATION: Full. Head strike COMPARISON: None available. TECHNIQUE: Thin section axial images with sagittal and coronal reformats. This CT examination was performed using dose optimization techniques as appropriate, variously including the following: *Automated exposure control *Adjustment of mA and/or kV according to patient size (this includes techniques or standardized protocols for targeted exams where dose is matched to indication/reason for exam; i.e. extremities or head) *Use of iterative reconstruction technique DLP: 465 mGy-cm FINDINGS: There appears to be straightening of the normal cervical lordosis. No fracture or destructive process. No encroachment on the spinal canal. Prevertebral soft tissues are normal. CT/CT cervical spine wo IV con IMPRESSION: Unremarkable examination. Fleischner guidelines were followed. Electronically signed by: Donavon Solares MD 11/04/2023 03:14 PM EDT
--- NOTE | ~2023-11-04 | XR_ITS ---
EXAMINATION: XR CHEST CLINICAL INFORMATION: Syncope versus seizure COMPARISON: Chest radiograph 06/12/2021 TECHNIQUE: Frontal view of the chest was obtained. FINDINGS: No significant abnormality is noted involving the heart, lungs, mediastinum, bony thorax or soft tissues. XR/XR chest 1V IMPRESSION: Unremarkable examination. Electronically signed by: Fritz Carpenter MD 11/04/2023 02:53 PM EDT RP
--- NOTE | ~2023-11-04 | CT_ITS ---
EXAMINATION: CT HEAD WITHOUT CONTRAST CLINICAL INFORMATION: Syncope versus seizure. Headaches COMPARISON: None available. TECHNIQUE: Contiguous axial imaging was performed from the skull base to vertex without intravenous administration of contrast. This CT examination was performed using dose optimization techniques as appropriate, variously including the following: *Automated exposure control *Adjustment of mA and/or kV according to patient size (this includes techniques or standardized protocols for targeted exams where dose is matched to indication/reason for exam; i.e. extremities or head) *Use of iterative reconstruction technique DLP: 639.7 mGy-cm FINDINGS: No intra or extra-axial fluid collection or hemorrhage, mass or mass effect. Calvarium intact. CT/CT head/brain wo IV con IMPRESSION: No acute intracranial pathology. Electronically signed by: Donavon Solares MD 11/04/2023 02:59 PM EDT
[2023-11-04 11:21] LABS: Glucose, Whole Blood 353 mg/dL (60-115)
--- NOTE | 2023-11-04 11:22 | PC.NURSE ---
patient arrives VIA ems from adult day program, per EMS patient was at her adult daycare and complained to staff with a headache, EMS states she went to go sit down in a chair and fell to the ground, staff reported episode of unresponsiveness and called 911. patient is alert but drowsy, able to follow commands, states she has a seizure disorder but has been compliant with her home medications. reported to EMS that her whole body aches and she feels tired and that's how she usually feels after having a seizure. PERRLA, no neuro deficits appreciated at this time, patient is drowsy and slow to respond but able to answer questions appropriately. 20 PIV placed by EMS, patient received approximately 250mL of NS. NSR on monitor for EMS, patient denies any sick contacts, states before today she was feeling fine
[2023-11-04 11:54] LABS: MANUAL DIFF FLAG NO
[2023-11-04 11:57] LABS: Basophils Absolute Auto 0.1 X10*3/uL (0.0-0.2); Basophils Percent Auto 0.8 % (0-2); Eosinophils Absolute Auto 0.2 X10*3/uL (0.0-0.4); Eosinophils Percent Auto 1.5 % (0-4); Hematocrit 41.3 % (37.0-47.0); Hemoglobin 13.4 g/dl (12.0-16.0); Imm Gran Abs Auto 0.05 X10*3/uL (0.00-0.03); Imm Gran Pct Auto 0.5 % (0.0-0.4); Lymphocytes Percent Auto 20.5 % (20-40); Mean Corpuscular HGB Conc 32.4 g/dl (31.0-35.0); Mean Corpuscular Hemoglobin 29.2 pg (27.0-33.0); Mean Platelet Volume 9.6 fL (9.4-12.3); Monocytes Absolute Auto 0.6 X10*3/uL (0.1-1.2); Monocytes Percent Auto 5.7 % (2-11); Neutrophils Absolute Auto 7.1 x10*3/uL (2.0-8.3); Platelet Count 212 X10*3/uL (160-400); Red Blood Count 4.59 X10*6/uL (4.20-5.50); Red Cell Distribution Width 12.9 % (11.0-16.0)
[2023-11-04 12:22] LABS: Valproate < 12.5 mcg/mL (50.0-100.0)
[2023-11-04 12:34] LABS: Alanine Aminotransferase 12 U/L (0-31); Albumin Level 3.9 g/dL (3.5-5.0); Alkaline Phosphatase 97 U/L (39-117); Anion Gap 13 (12-20); Aspartate Amino Transferase 10 U/L (5-31); Bilirubin Total 0.2 mg/dL (0.0-1.0); Blood Urea Nitrogen 9 mg/dL (9-16); Calcium 9.2 mg/dL (8.4-10.2); Carbon Dioxide 21 mmol/L (22-29); Chloride 105 mmol/L (96-108); Creatinine Clr Calc Pharmacy 79.3; Estimated Glomerular Filt Rate > 60; Glucose Random 332 mg/dL (60-115); Potassium 3.7 mmol/L (3.3-5.1); Sodium 135 mmol/L (135-145); Total Protein 7.2 g/dL (6.5-8.0)
--- NOTE | 2023-11-04 12:51 | ECG_ITS ---
Test Reason : sycope/ seizure Blood Pressure : / mmHG Vent. Rate : 063 BPM Atrial Rate : 063 BPM P-R Int : 148 ms QRS Dur : 090 ms QT Int : 414 ms P-R-T Axes : 052 014 017 degrees QTc Int : 423 ms Normal sinus rhythm Septal infarct , age undetermined Abnormal ECG When compared with ECG of 12-JUN-2021 13:14, T wave amplitude has increased in Lateral leads Referred By: Diane Espino Electronically Signed By:RICKY ARNOLD
[2023-11-04 13:16] LABS: Appearance Urine Clear; Color Urine Yellow; Glucose Urine UA >=1000 mg/dL (Negative); Leukocyte Esterase Urine Negative (Negative); Nitrite Urine Negative (Negative); PH 6.5 (5.0-9.0); UMIC TRIGGER UACC YES; Urine Blood Negative (Negative); Urine Ketones Negative (Negative); Urine Protein Negative (Neg-Trace)
[2023-11-04] MEDS: 0.9 % Sodium Chloride 1,000 ML 999 ML IV (13:21)
[2023-11-04 13:22] LABS: Bacteria Urine None Seen (None Seen); Hyaline Casts Urine 0-2 /LPF (0-2); RBC Urine 0-2 /HPF (0-2); Squamous Epithelial Cell Urine 0-2 /HPF (0-2); WBC Urine 0-5 /HPF (0-5)
[2023-11-04 13:30] LABS: Troponin-I High Sensitivity < 2.7 ng/L (<3.5-17.0)
[2023-11-04 13:34] LABS: Amphetamine Screen Urine Not Detected (Not Detect); Barbiturates, Urine Not Detected (Not Detect); Benzodiazepines Screen Urine Not Detected (Not Detect); Buprenorphine Scr Not Detected (Not Detect); Cannabinoid Screen Urine Not Detected (Not Detect); Cocaine Screen Urine Not Detected (Not Detect); Fentanyl, urine Not Detected (Not Detect); Methadone Screen, Urine Not Detected (Not Detect); Opiate Screen Urine Not Detected (Not Detect); Oxycodone Screen Urine Not Detected (Not Detect); Phencyclidine Screen Urine Not Detected (Not Detect)
[2023-11-04 13:54] LABS: Influenza A PCR NEGATIVE (Negative); Influenza B PCR NEGATIVE (Negative); Resp Syncy Virus RNA Qual PCR NEGATIVE (Negative); SARS COV2 PCR INHOUSE NEGATIVE (Negative)
[2023-11-04 14:29] LABS: Magnesium 1.5 mg/dL (1.6-2.6)
--- NOTE | 2023-11-04 15:08 | ED.GENADULT ---
HPI - General Adult General Chief complaint: Seizure Stated complaint: SYNCOPE,+LOC,FROM ADULT DAY CARE PER EMS Time Seen by Provider: 11/04/23 12:35 Source: patient, EMS, RN notes reviewed and old records reviewed Mode of arrival: EMS History of Present Illness ED Provider: Diane Espino PA-C HPI narrative: 53-year-old female with a past medical history of anxiety, HLD, HTN, diabetes, depression, seizures, presenting to the ED via EMS from adult day program after unwitnessed fall to ground with + head strike [employer]. Patient states she was feeling diffuse myalgias/unwell this morning, went to day program requesting Tylenol for myalgias, & also took Motrin, then had ?syncopal episode with +LOC that was not witnessed by staff. Patient states she woke ip on the ground and didnt really remember incident, patient is poor historian. Spoke with nurse from facility and states he was there immediately after patient had fallen and she was lethargic, but was not confused/post-ictal & no appreciable convulsions noted. Patient reports she feels lethargic at present & headache, similar to post-seizure in the past, however unsure if she had a seizure, denies incontinence or tongue biting. Reports compliance with antiepileptics, states it has been some time since she has had a seizure. Denies recent illness, fever, CP/SOB, abdominal pain, nausea/vomiting. Related Data Home Medications ?Medication ?Instructions ?Recorded ?Confirmed atorvastatin 80 mg tablet (Lipitor) 80 mg PO DAILY 05/03/20 08/21/23 docusate sodium 100 mg capsule 100 mg PO BID 05/03/20 08/21/23 (Colace) insulin lispro protamine-lispro See Rx Instructions .Route .COMPLEX 05/03/20 08/21/23 100 unit/mL (75-25) subcutaneous pen lisinopril 5 mg tablet 5 mg PO DAILY 05/03/20 08/21/23 metformin 1,000 mg tablet 1,000 mg PO BID 05/03/20 08/21/23 oxcarbazepine 600 mg tablet 600 mg PO BEDTIME 05/03/20 08/21/23 quetiapine 100 mg tablet (Seroquel) 100 mg PO DAILY 05/03/20 08/21/23 sertraline 100 mg tablet (Zoloft) 200 mg PO DAILY 05/03/20 08/21/23 dapagliflozin propanediol 5 mg 1 tab PO QAM diabetes mellitus 01/22/21 08/21/23 tablet (Farxiga) polyethylene glycol 3350 17 gram 17 g PO DAILY 04/20/21 08/21/23 oral powder packet (Miralax) budesonide-formoterol HFA 80 1 puff inhalation BID 06/07/22 08/21/23 mcg-4.5 mcg/actuation aerosol inhaler (Symbicort) topiramate 50 mg tablet (Topamax) 50 mg PO BID 06/07/22 08/21/23 trazodone 100 mg tablet 200 mg PO BEDTIME PRN Insomnia 06/07/22 08/21/23 nicotine (polacrilex) 4 mg gum 4 mg PO DAILY 06/20/22 08/21/23 ketoconazole 2 % shampoo 2 appl topical DAILY 07/28/23 08/21/23 naltrexone 50 mg tablet 50 mg PO DAILY 07/28/23 08/21/23 paliperidone 6 mg tablet,extended 12 mg PO QAM 07/28/23 08/21/23 release 24 hr (Invega) sennosides 8.6 mg tablet (senna) 17.2 mg PO DAILY 07/28/23 08/21/23 triamcinolone acetonide 0.1 % 0.1 appl topical DAILY 07/28/23 08/21/23 topical cream Previous Rx's ?Medication ?Instructions ?Recorded albuterol sulfate 90 mcg/actuation 2 puff inhalation Q4-6H PRN 06/12/21 aerosol inhaler (ProAir HFA) shortness of breath or wheezing #6.7 grams ferrous sulfate 325 mg (65 mg 325 mg PO DAILY #60 tabs 03/21/23 iron) tablet magnesium hydroxide 400 mg/5 mL 10 ml PO DAILY PRN constipation 07/28/23 oral suspension (Milk of Magnesia) #355 mL tamoxifen 20 mg tablet 20 mg PO DAILY #90 tabs 09/13/23 bisacodyl 5 mg tablet,delayed 10 mg (2 x 5 mg) PO BEDTIME #180 10/28/23 release (Dulcolax (bisacodyl)) tabs Allergies Allergy/AdvReac Type Severity Reaction Status Date / Time No Known Allergies Allergy Verified 11/04/23 11:19 [No Known Allergies*] Review of Systems Review of Systems: Constitutional: No Fever, No Chills, +fatigue, + lethargy ENT/Mouth: No Ear Pain, No Nasal Congestion, No sore throat, No Rhinorrhea, No Swallowing Difficulty Cardiovascular: No Chest Pain, No SOB Respiratory: No Cough, No Sputum Gastrointestinal: No Nausea, No Vomiting, No Diarrhea, No Constipation, No Abdominal pain Genitourinary: No Dysuria, No Urinary Frequency, No Hematuria, No Urinary Incontinence/retention, No Flank Pain Musculoskeletal: No joint pain, No Myalgias, No Joint Swelling Skin: No Skin Lesions, No rash Neuro: No Weakness, No Numbness, No Paresthesias, +SWARTZ, +LOC, +Syncope or seizure Yes all other systems are reviewed and are negative Constitutional: Constitutional: Reports as per HPI Neurologic: Denies Abnormal speech present [facility] Past Medical History Attestation statement: The following information was validated with the patient. Source: old records reviewed Medical History History of syphilis History of syphilis History of ductal carcinoma in situ (DCIS) of breast Anxiety Serrated polyp of colon Cecal polyp Nipple discharge Elevated cholesterol Family history of breast cancer Lobular carcinoma in situ (LCIS) of left breast Ductal carcinoma in situ (DCIS) of breast Hypertension Diabetes mellitus Depression Breast calcification, left Surgical History History of laparoscopic cholecystectomy H/O colonoscopy H/O breast surgery History of tubal ligation Family History Family History Sister History of breast cancer Social History Social History Household Members: Children Household Members Other:: son 18 yrs old Housing: Apartment Are you a primary director career services to a significant other at home: No Do you presently have visiting nurse or other home services: Yes ([facility] bid for meds, 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) Alcohol intake: never Patient Tobacco Use Status: Current everyday Tobacco user Tobacco use type: Cigarette Cigarette Packs Per Day: 2 Years Smoked: 30 Substance Use Type: Crack/Cocaine and Former Substance User Advance Directives: No Advance Directives Information Provided: Yes Patient : No service: No Current occupational status: unemployed Sexual orientation: Straight/Heterosexual Gender identity: Female Physical Exam ED Vital Signs: Vital Signs - 24 hr 11/04/23 11:17 11/04/23 14:08 11/04/23 16:48 Temperature 97.8 F 96.9 F Pulse Rate 68 63 65 Respiratory Rate 18 20 Blood Pressure 102/54 L 122/60 113/56 L Pulse Oximetry 100 99 Oxygen Delivery Method Room Air Room Air 11/04/23 16:50 11/04/23 16:52 Temperature Pulse Rate 67 69 Respiratory Rate Blood Pressure 107/60 106/61 Pulse Oximetry Oxygen Delivery Method BMI result Body Mass Index 30.4 Const Other: Alert to voice General: cooperative, no acute distress, alert and lethargic Orientation/consciousness: patient oriented x3 and lethargic Limitations: no limitations HENMT Head: Yes normal to inspection and Yes atraumatic Ears: hearing grossly normal bilaterally General nose exam: Normal external nose present Face and sinus: Yes normal facial exam Mouth: Normal oral and palatal mucosa present Throat: Yes posterior oropharynx normal and Yes uvula midline Eyes General: appearance normal, both eyes and all related structures Pupils: Equal, round and reactive pupils present EOM: EOMs intact bilaterally Neck Neck: Yes normal visual inspection and Yes no meningeal signs Resp Effort & Inspection: normal respiratory effort and no respiratory distress Auscultation: clear to auscultation bilaterally, no crackles and no wheezes Cardio Rate: regular rate Heart sounds: S1 normal heart sound present and S2 normal heart sound present GI Inspection: Yes normal to inspection Palpation (GI): Soft to palpation, nontender, no guarding and not rigid General: Yes no CVA tenderness Back/Spine/Pelvis Other: No midline cervical/thoracic/lumbar spinous tenderness/step-off or deformity Back: no CVA tenderness Skin Rashes: no rashes Wounds: no wounds Neuro General: patient oriented x3, tone normal, moves all extremities, no meningeal signs, no focal motor deficits and CN's II-XI intact bilaterally Cranial nerves: Yes CN's II-XII intact bilaterally, Yes Equal, round and reactive pupils present and Yes Bilaterally intact EOM present Speech: No Abnormal speech present Motor exam (neuro): 5/5 motor strength present throughout Extrem General: Yes normal to inspection Course Course Course Narrative: -no leukocytosis. H and H stable. POC 353, no anion gap. -magnesium 1.5 > 2g IV repletion ordered. Troponin negative -UA not infected. Tox screen negative. Viral testing negative CT head/brain wo IV con IMPRESSION: No acute intracranial pathology. CT cervical spine wo IV con IMPRESSION: Unremarkable examination. Fleischner guidelines were followed XR chest 1V IMPRESSION: Unremarkable examination. -on re-evaluation patient reports symptomatic improvement, awake and alert. States she lives with her son. Recommended close PCP follow-up and continued medication compliance. > IV magnesium still running, 16:30 ED care transferred to [employer] Mike pending orthostatics & ambulation trial Results discussed with patient including worrisome signs and symptoms and strict return precautions, and when to return to the emergency department. They verbalized understanding and feel safe for discharge at this time. Reevaluation(s) Reevaluation #1: Orthostatic vital signs or negative. She is ambulatory with a steady gait. Conscious alert and oriented x3. Has no neurological deficits. No active complaints. At this time feel that she is stable for discharge. All questions answered. Medications Administered Discontinued Medications Generic Name Dose Route Start Last Admin Trade Name Freq PRN Reason Stop Dose Admin Sodium Chloride 1,000 mls @ 999 mls/hr 11/04/23 13:00 11/04/23 15:09 Ns IV 11/04/23 14:00 Infused .Q1H1M NEELAM Infusion Magnesium Sulfate 2 gm in 50 mls @ 25 mls/hr 11/04/23 14:46 11/04/23 17:01 Magnesium Sulfate/H2o IV 11/04/23 16:45 Infused ONCE ONE Infusion Medical Decision Making Medical Decision Making [facility] Narrative: 53-year-old female with a past medical history of anxiety, HLD, HTN, diabetes, depression, seizures, presenting to the ED via EMS from adult day program after unwitnessed fall to ground with + head strike [employer]. Patient states she was feeling diffuse myalgias/unwell this morning, went to day program requesting Tylenol for myalgias, & also took Motrin, then had ?syncopal episode with +LOC that was not witnessed by staff. On exam vital signs stable, NAD, nontoxic appearing, lethargic however easily arousable, following commands, A&O x3, no focal neuro deficits, no midline spinous tenderness. Concern for syncope vs seizure. Concern for viral illness. Rule out metabolic abnormalities infectious etiology. Lower suspicion for ACS/PE. Lower suspicion for meningitis/encephalitis or ICH. Plan: EKG, labs, UA, tox screen, head/C-spine CT, x-ray, orthostatics, IVF, re-evaluate nursing ordered valproic acid level, patient does not know home antiepileptic medications, per chart review/med rec patient does not take valproic acid Please refer to course for remaining clinical decision making, interpretation of labs/imaging results, and discussions with consultants and/or family members. Differential Diagnosis Differential Diagnoses: The differential diagnosis associated with the presentation includes As above Admission/Observation Consideration of admission/observation: Escalation of care including admission/observation considered Lab Data MDM Lab Attestation statement: I reviewed the patient's lab results. 11/04/23 11:50 11/04/23 11:50 Labs: Lab Results 11/04/23 11/04/23 11/04/23 Range/Units 11:17 11:50 11:51 WBC 10.0 (4.8-10.8) X10*3/uL RBC 4.59 (4.20-5.50) X10*6/uL Hgb 13.4 (12.0-16.0) g/dl Hct 41.3 (37.0-47.0) % MCV 90.0 (80.0-98.0) fL MCH 29.2 (27.0-33.0) pg MCHC 32.4 (31.0-35.0) g/dl RDW 12.9 (11.0-16.0) % Plt Count 212 (160-400) X10*3/uL MPV 9.6 (9.4-12.3) fL Immature Gran % (Auto) 0.5 H (0.0-0.4) % Neut % (Auto) 71.0 (45-73) % Lymph % (Auto) 20.5 (20-40) % Union % (Auto) 5.7 (2-11) % Eos % (Auto) 1.5 (0-4) % Baso % (Auto) 0.8 (0-2) % Lymph # (Auto) 2.0 (1.2-4.9) X10*3/uL Union # (Auto) 0.6 (0.1-1.2) X10*3/uL Eos # (Auto) 0.2 (0.0-0.4) X10*3/uL Baso # (Auto) 0.1 (0.0-0.2) X10*3/uL Abs Immat Gran (auto) 0.05 H (0.00-0.03) X10*3/uL Absolute Neuts (auto) 7.1 (2.0-8.3) x10*3/uL Absolute Nucleated RBC 0.000 (0.0-0.012) X10*3/uL Nucleated RBC % (auto) 0.0 (0.0-0.2) /100WBC Sodium 135 (135-145) mmol/L Potassium 3.7 (3.3-5.1) mmol/L Chloride 105 (96-108) mmol/L Carbon Dioxide 21 L (22-29) mmol/L Anion Gap 13 (12-20) BUN 9 (9-16) mg/dL Creatinine 0.86 (0.5-1.4) mg/dL Estim Creat Clear Calc 79.3 Estimated GFR > 60 POC Glucose 353 H* (60-115) mg/dL Random Glucose 332 H (60-115) mg/dL Calcium 9.2 (8.4-10.2) mg/dL Magnesium 1.5 L (1.6-2.6) mg/dL Total Bilirubin 0.2 (0.0-1.0) mg/dL AST 10 (5-31) U/L ALT 12 (0-31) U/L Alkaline Phosphatase 97 (39-117) U/L Total Creatine Kinase 106 (26-140) U/L Troponin I High Sens < 2.7 (<3.5-17.0) ng/L Total Protein 7.2 (6.5-8.0) g/dL Albumin 3.9 (3.5-5.0) g/dL Urine Color Urine Appearance Urine pH (5.0-9.0) Ur Specific [place] (1.005-1.025) Urine Protein (Neg-Trace) mg/dL Urine Glucose (UA) (Negative) mg/dL Urine Ketones (Negative) mg/dL Urine Blood (Negative) Urine Nitrite (Negative) Ur Leukocyte Esterase (Negative) Urine RBC (0-2) /HPF Urine WBC (0-5) /HPF Ur Squamous Epith Cells (0-2) /HPF Urine Bacteria (None Seen) Hyaline Casts (0-2) /LPF Urine Opiates Screen (Not Detect) Ur Buprenorphine Scrn (Not Detect) ng/mL Ur Oxycodone Screen (Not Detect) ng/mL Urine Methadone Screen (Not Detect) ng/mL Urine Fentanyl Screen (Not Detect) Ur Barbiturates Screen (Not Detect) Valproic Acid < 12.5 L (50.0-100.0) mcg/mL Ur Phencyclidine Scrn (Not Detect) Ur Amphetamines Screen (Not Detect) U Benzodiazepines Scrn (Not Detect) Urine Cocaine Screen (Not Detect) U Marijuana (THC) Screen (Not Detect) Influenza Type A (PCR) (Negative) Influenza Type B (PCR) (Negative) RSV RNA Qual (PCR) (Negative) SARS-CoV-2 RNA (RT-PCR) (Negative) 11/04/23 11/04/23 Range/Units 13:06 15:48 WBC (4.8-10.8) X10*3/uL RBC (4.20-5.50) X10*6/uL Hgb (12.0-16.0) g/dl Hct (37.0-47.0) % MCV (80.0-98.0) fL MCH (27.0-33.0) pg MCHC (31.0-35.0) g/dl RDW (11.0-16.0) % Plt Count (160-400) X10*3/uL MPV (9.4-12.3) fL Immature Gran % (Auto) (0.0-0.4) % Neut % (Auto) (45-73) % Lymph % (Auto) (20-40) % Union % (Auto) (2-11) % Eos % (Auto) (0-4) % Baso % (Auto) (0-2) % Lymph # (Auto) (1.2-4.9) X10*3/uL Union # (Auto) (0.1-1.2) X10*3/uL Eos # (Auto) (0.0-0.4) X10*3/uL Baso # (Auto) (0.0-0.2) X10*3/uL Abs Immat Gran (auto) (0.00-0.03) X10*3/uL Absolute Neuts (auto) (2.0-8.3) x10*3/uL Absolute Nucleated RBC (0.0-0.012) X10*3/uL Nucleated RBC % (auto) (0.0-0.2) /100WBC Sodium (135-145) mmol/L Potassium (3.3-5.1) mmol/L Chloride (96-108) mmol/L Carbon Dioxide (22-29) mmol/L Anion Gap (12-20) BUN (9-16) mg/dL Creatinine (0.5-1.4) mg/dL Estim Creat Clear Calc Estimated GFR POC Glucose 253 H (60-115) mg/dL Random Glucose (60-115) mg/dL Calcium (8.4-10.2) mg/dL Magnesium (1.6-2.6) mg/dL Total Bilirubin (0.0-1.0) mg/dL AST (5-31) U/L ALT (0-31) U/L Alkaline Phosphatase (39-117) U/L Total Creatine Kinase (26-140) U/L Troponin I High Sens (<3.5-17.0) ng/L Total Protein (6.5-8.0) g/dL Albumin (3.5-5.0) g/dL Urine Color Yellow Urine Appearance Clear Urine pH 6.5 (5.0-9.0) Ur Specific [place] 1.010 (1.005-1.025) Urine Protein Negative (Neg-Trace) mg/dL Urine Glucose (UA) >=1000 H (Negative) mg/dL Urine Ketones Negative (Negative) mg/dL Urine Blood Negative (Negative) Urine Nitrite Negative (Negative) Ur Leukocyte Esterase Negative (Negative) Urine RBC 0-2 (0-2) /HPF Urine WBC 0-5 (0-5) /HPF Ur Squamous Epith Cells 0-2 (0-2) /HPF Urine Bacteria None Seen (None Seen) Hyaline Casts 0-2 (0-2) /LPF Urine Opiates Screen Not Detected (Not Detect) Ur Buprenorphine Scrn Not Detected (Not Detect) ng/mL Ur Oxycodone Screen Not Detected (Not Detect) ng/mL Urine Methadone Screen Not Detected (Not Detect) ng/mL Urine Fentanyl Screen Not Detected (Not Detect) Ur Barbiturates Screen Not Detected (Not Detect) Valproic Acid (50.0-100.0) mcg/mL Ur Phencyclidine Scrn Not Detected (Not Detect) Ur Amphetamines Screen Not Detected (Not Detect) U Benzodiazepines Scrn Not Detected (Not Detect) Urine Cocaine Screen Not Detected (Not Detect) U Marijuana (THC) Screen Not Detected (Not Detect) Influenza Type A (PCR) NEGATIVE (Negative) Influenza Type B (PCR) NEGATIVE (Negative) RSV RNA Qual (PCR) NEGATIVE (Negative) SARS-CoV-2 RNA (RT-PCR) NEGATIVE (Negative) Independent Interpretation I performed an independent interpretation of an: EKG (My interpretation EKG normal sinus rhythm rate of 63. OR interval 148. No significant change when compared to prior. No STEMI) and Plain X-Ray Radiology Impression Discussion of test interpretation with radiology: I have reviewed the radiologist's reading. Independent Historian Clinical information obtained from an independent historian. History obtained from or confirmed by: EMS External Record Review External record reviewed: Inpatient record, Office record, Outpatient record, Prior outpatient labs, Prior outpatient radiology, Primary care record and Outside ED record Tests considered The following testing was considered but not selected: As above Chronic Conditions Patient?s care impacted by: Other Discharge Plan Discharge Clinical Impression: Syncope, Myalgia Patient Disposition: Home, Self-Care Instructions: Syncope (DC), Musculoskeletal Pain (ED) Additional Instructions: Your blood work and imaging studies are reassuring. It is unclear if you had a passing out episode or a seizure. Make sure you continue to take home medications especially your seizure medication If you develop chest pain, shortness of breath, headache, weakness return to the ED immediately Make sure you are staying hydrated at home Follow-up with your doctor, call tomorrow to make an appointment Prescriptions: No Action tamoxifen 20 mg Tablet 20 mg PO DAILY Qty: 90 4RF bisacodyl [Dulcolax (bisacodyl)] 5 mg tablet,delayed release (DR/EC) 10 mg PO BEDTIME Qty: 180 4RF dapagliflozin propanediol [Farxiga] 5 mg tablet 1 tab PO QAM ferrous sulfate 325 mg (65 mg iron) Tablet 325 mg PO DAILY Qty: 60 3RF polyethylene glycol 3350 [Miralax] 17 gram Powder In Packet 17 g PO DAILY albuterol sulfate [ProAir HFA] 90 mcg/actuation HFA aerosol inhaler 2 puff inhalation Q4-6H PRN (Reason: shortness of breath or wheezing) Qty: 6.7 0RF atorvastatin [Lipitor] 80 mg tablet 80 mg PO DAILY lisinopril 5 mg tablet 5 mg PO DAILY docusate sodium [Colace] 100 mg capsule 100 mg PO BID metformin 1,000 mg tablet 1,000 mg PO BID insulin lispro protamin-lispro 100 unit/mL (75-25) insulin pen See Rx Instructions .ROUTE .COMPLEX Rx Instructions: 40 units bid oxcarbazepine 600 mg tablet 600 mg PO BEDTIME sertraline [Zoloft] 100 mg tablet 200 mg PO DAILY quetiapine [Seroquel] 100 mg tablet 100 mg PO DAILY trazodone 100 mg tablet 200 mg PO BEDTIME PRN (Reason: Insomnia) topiramate [Topamax] 50 mg tablet 50 mg PO BID budesonide-formoterol [Symbicort] 80-4.5 mcg/actuation HFA aerosol inhaler 1 puff inhalation BID nicotine (polacrilex) 4 mg gum 4 mg PO DAILY naltrexone 50 mg tablet 50 mg PO DAILY paliperidone [Invega] 6 mg tablet extended release 24hr 12 mg PO QAM sennosides [senna] 8.6 mg tablet 17.2 mg PO DAILY triamcinolone acetonide 0.1 % cream 0.1 appl topical DAILY ketoconazole 2 % shampoo 2 appl topical DAILY magnesium hydroxide [Milk of Magnesia] 400 mg/5 mL suspension 10 ml PO DAILY PRN (Reason: constipation) Qty: 355 0RF Referrals: Physician,Unknown J [Primary Care Provider] - 3 days Print Language: Macedonian
[2023-11-04] MEDS: Magnesium Sulfate/H2O 2 GM/50 ML PIGGYBACK IV (15:09)
[2023-11-04 15:51] LABS: Glucose, Whole Blood 253 mg/dL (60-115)
--- NOTE | 2023-11-04 16:25 | PC.NURSE ---
patient resting comfortably on stretcher at this time, not offering any complaints, IV magnesium running through PIV. patient requesting to use bedpan, assisted onto bedpan at this time. plan to dc patient, patient states she lives with her son and he does not have a car, will attempt to find appropriate transportation home when dispo is through
--- NOTE | 2023-11-04 16:57 | PC.NURSE ---
orthos completed by this RN, patient endorsing feeling much better, states she wants to take the bus home, patient ambulated with steady gait to bathroom, will make provider aware
[2023-11-08 15:04] LABS: Oxcarbazepine <1.0 mcg/mL (8.0-35.0)
== END 2023-11-04 18:10 | disposition home or self-care (01) ==
PROVIDERS: Physician Assistant; Emergency Provider Emergency Medicine Emergency Medical Services
DX: R55 Syncope and collapse (principal); I10 Essential (primary) hypertension; M79.10 Myalgia, unspecified site; R11.2 Nausea with vomiting, unspecified; M54.2 Cervicalgia; R94.31 Abnormal electrocardiogram [ECG] [EKG]; Z03.818 Encounter for observation for suspected exposure to other biological agents ruled out; Z79.899 Other long term (current) drug therapy
CPT/HCPCS: 0241U; 36415; 70450; 71045; 72125; 80053; 80164; 80307; 80339; 81001; 82550; 82947; 83735; 84484; 85025; 93005; 96361; 96365; 96366; 99285; J3475

== ENCOUNTER 2023-12-30 13:34 | Outpatient (AMB) | payer MEDICAID, SELFPAY ==
--- NOTE | 2023-12-30 13:34 | MHC.OFFVIS ---
Vital Signs 12/30/23 13:35 Height 5 ft 4 in Weight 169 lb 5.04 oz BMI 29.1 Intake Visit Reasons: 6 week follow up Intake Note: Relevant Flags or Indicators ? Requires [employer]? Rebecca Pettit presents in office today for a scheduled FUV, pt n/s their last FUV scheduled for 6 weeks. CC; Since last visit; labs ordered ? per ED. Rx ordered ? no. Diagnostics/images ordered -- none Relevant GI Sx as reported per pt? Reflux ? Fecal abnormalities o?? Discolored? Pt reports having dark colored stools and they have had this for a long period of time. o?? Constipation + Diarrhea -- Intermittently ? Abdominal Pain - generalized when straining with BM ? Bloating ? Abdominal distention -- Pt is very concerned about the size of their abdomen and would like to discuss this as they feel that it is not all attributed to weight gain. ? Hx of any recent surgeries? None [employer] Required: Yes [employer] Services: [employer] Present [employer] Name: Sofia David Information Interpreted: non-clinical & clinical Accompanied by: Self / Same As Patient Allergies No Known Allergies [No Known Allergies*] Allergy (Verified 12/30/23 13:38) HPI HPI 6 week follow up: Details: LAST VISIT Constipation IBS (irritable bowel syndrome) Postprandial abdominal bloating Plan Patient will take milk of magnesia today and will start taking Dulcolax tablets. Patient will go for x-ray. Phone call made to machine adjuster leader case trim who did not come to her visit today and will bring patient for her x-ray tomorrow. Patient was encouraged to increase fluid intake and activity to promote better bowel motility. Patient will return to the office in 6 weeks, sooner on as needed basis. She is agreeable to this plan and verbalizes understanding of instructions. She was given the opportunity to ask questions and all questions answered. ? Thank you for allowing me to participate in her care Orders Orders XR KUB Today K59.00 Medications New bisacodyl (Dulcolax (bisacodyl)) 10 mg (2 x 5 mg) PO BEDTIME 180 tabs 4RF magnesium hydroxide (Milk of Magnesia) 10 mL PO DAILY PRN 355 mL 0RF constipation TODAY'S VISIT Patient is here today for follow-up. Patient reports that since last time I have seen her she continues to be bloated. Patient was last seen in July and was supposed to be returning in 6 weeks. Script for Dulcolax and milk of magnesia given to patient. Patient is here with a list of the medication that she is taking and Dulcolax is not on the list. Patient currently is taking senna. Reports that she is not able to move her bowels.. Not following any particular diet. Patient denies melena, hematochezia, unintentional weight loss or ribbon like stools. Patient had colonoscopy in 2020 that showed sessile serrated polyp in the appendiceal orifice. The endoscopist had stated that this could not be removed completely in because of the sessile nature of the polyp and its location. Patient was sent to Dr. Locke and colon resection was done in April of 2021. Patient reports abdominal pain throughout and bloating. Patient reports that she feels like she is bloated all the time no matter what she eats. Patient denies any nausea or vomiting. [facility] Medical History History of syphilis History of syphilis History of ductal carcinoma in situ (DCIS) of breast Anxiety Serrated polyp of colon Cecal polyp Nipple discharge Elevated cholesterol Family history of breast cancer Lobular carcinoma in situ (LCIS) of left breast Ductal carcinoma in situ (DCIS) of breast Hypertension Diabetes mellitus Depression Breast calcification, left Surgical History History of laparoscopic cholecystectomy H/O colonoscopy H/O breast surgery History of tubal ligation Family History Sister History of breast cancer Social History Household Members: Children Household Members Other:: son 18 yrs old Housing: Apartment Are you a primary personal care worker to a significant other at home: No Do you presently have visiting nurse or other home services: Yes ([employer] bid for meds, [employer] 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) Alcohol intake: never Patient Tobacco Use Status: Current everyday Tobacco user Tobacco use type: Cigarette Cigarette Packs Per Day: 2 Years Smoked: 30 Substance Use Type: Crack/Cocaine and Former Substance User service: No Current occupational status: unemployed Sexual orientation: Straight/Heterosexual Gender identity: Female Female Reproductive History Menstrual Age of Menarche: 14 Review of Systems Const Denies weight gain and Denies weight loss ENT Reports no additional complaints, Denies dysphagia and Denies odynophagia Card Reports no additional complaints Resp Reports no additional complaints GI Reports abdominal pain (Cramping), Denies belching, Denies melena, Reports bloating, Reports constipation, Denies dysphagia, Denies excessive flatus, Denies dyspepsia, Denies heartburn, Denies diarrhea, Denies loose stools, Denies nausea, Denies odynophagia, Denies vomiting and Reports other Reports no additional complaints Musc Reports no additional complaints Neuro Reports no additional complaints Psych Reports no additional complaints Endo Reports no additional complaints Physical Exam Vital Signs: BMI result Body Mass Index 29.1 Const General: healthy appearing and no acute distress Nutritional Appearance: obese Orientation/consciousness: patient oriented x3 Eyes General: appearance normal, both eyes and all related structures Neck Neck: Yes normal visual inspection, Yes full ROM and Yes trachea midline Thyroid: Thyroid normal Resp Effort & Inspection: normal respiratory effort, able to speak in complete sentences, no tracheal deviation and symmetric chest movement Auscultation: clear to auscultation bilaterally Cardio Rate: regular rate GI Inspection: Yes normal to inspection, Yes distended and Yes obesity Palpation (GI): Soft to palpation, not firm and nontender Auscultation: Hypoactive bowel sounds present General: Yes no CVA tenderness Back/Spine/Pelvis Back: no CVA tenderness Skin General skin exam: elasticity normal, turgor normal and dry skin Neuro General: patient oriented x3 Psych Appearance: grossly normal Mental Status: mental status grossly normal Results Reviewed Results Reviewed: KUB FINDINGS: The bowel gas pattern is normal with no evidence of ileus or obstruction. Anastomotic sutures and surgical clips are seen in the right lower quadrant. There is a mild amount of stool within the hepatic flexure, descending colon and sigmoid colon. Findings are not consistent with constipation. No unusual soft tissue calcifications are noted. The bones are unremarkable. XR/XR KUB IMPRESSION: Mild amount of stool within the colon, not consistent with constipation. Assessment & Plan Assessment & Plan (1) Constipation: Code(s): K59.00 - Constipation, unspecified Qualifiers: Constipation type: slow transit constipation Qualified Code(s): K59.01 - Slow transit constipation (2) IBS (irritable bowel syndrome): Code(s): K58.9 - Irritable bowel syndrome, unspecified Qualifiers: Irritable bowel syndrome type: without diarrhea Qualified Code(s): K58.9 - Irritable bowel syndrome, unspecified (3) Postprandial abdominal bloating: Code(s): R14.0 - Abdominal distension (gaseous) (4) Rectus diastasis: Code(s): M62.08 - Separation of muscle (nontraumatic), other site Plan Patient will start taking Dulcolax. Patient was encouraged to increase fluid intake and activity to promote better bowel motility. Patient will be sent for CT scan and will return in 2-3 months so we can discuss going for possible colonoscopy. Negative abdominal exam except for diastasis recti. Patient is agreeable to plan of care and verbalizes understanding of instructions. She was given the opportunity to ask questions and all questions answered. Orders: Orders Creatinine Today R10.11 - Right upper quadrant pain CT abdomen pelvis w IV con Today R10.9 - Unspecified abdominal pain Blood Urea Nitrogen Today R10.11 - Right upper quadrant pain Medications: Refilled bisacodyl (Dulcolax (bisacodyl)) 10 mg (2 x 5 mg) PO BEDTIME 180 tabs 4RF Coding Level of Care Code Est Pt Level 4 (00302) Diagnoses Slow transit constipation K59.01 Constipation type: slow transit constipation Irritable bowel syndrome without diarrhea K58.9 Irritable bowel syndrome type: without diarrhea Postprandial abdominal bloating R14.0 Rectus diastasis M62.08 Time Spent (min) 35 Comment 25 minutes spent with patient and additional 10 minutes spent reviewing her records
[2023-12-30 13:35] VITALS: BMI 29.1
== END 2023-12-30 14:17 | disposition home or self-care (01) ==
PROVIDERS: PCP Registered Nurse; Visit Provider Nurse Practitioner Family
DX: K59.01 Slow transit constipation (principal); K58.9 Irritable bowel syndrome, unspecified; R14.0 Abdominal distension (gaseous); M62.08 Separation of muscle (nontraumatic), other site
CPT/HCPCS: 99214

== ENCOUNTER → 2023-12-30 13:34 | Outpatient (BNVA) | payer MEDICAID, SELFPAY | PROVIDERS: PCP Registered Nurse; Visit Provider Nurse Practitioner Family | DX: K59.01 Slow transit constipation (principal); K58.9 Irritable bowel syndrome, unspecified; R14.0 Abdominal distension (gaseous); M62.08 Separation of muscle (nontraumatic), other site | CPT/HCPCS: 99212 ==

== ENCOUNTER 2024-01-16 10:50 | Day surgery (SDC) | payer MEDICAID, SELFPAY ==
--- NOTE | 2024-01-15 09:56 | P.CONAN_ITS ---
Documented by User: Sally Cantu NP 01/15/24 09:57 HPI - Anesthesia Eval Consult details Narrative: 53yo F for Colonoscopy Anesthesia Pre-Procedure Meds Is the patient on any of the following meds?: SGLT2 Inhib PMFSH Active Problems Active Problems: All Active Problems Preop cardiovascular exam (Acute) Chest discomfort (Acute) History of syphilis (Acute) History of ductal carcinoma in situ (DCIS) of breast (Acute) Encounter to discuss test results (Acute) Pelvic pain in female (Acute) Encounter for annual routine gynecological examination (Acute) Anemia (Acute) Cecal polyp (Acute) Nipple discharge (Acute) Family history of breast cancer (Acute) Lobular carcinoma in situ (LCIS) of left breast (Acute) Ductal carcinoma in situ (DCIS) of breast (Acute) Hypertension (Acute) Diabetes mellitus (Acute) Depression (Acute) Breast calcification, left (Acute) Past Medical History Medical History History of syphilis History of syphilis History of ductal carcinoma in situ (DCIS) of breast Anxiety Serrated polyp of colon Cecal polyp Nipple discharge Elevated cholesterol Family history of breast cancer Lobular carcinoma in situ (LCIS) of left breast Ductal carcinoma in situ (DCIS) of breast Hypertension Diabetes mellitus Depression Breast calcification, left Family History Family History Sister History of breast cancer Family history of problems with anesthesia: No Surgical History Surgical History History of laparoscopic cholecystectomy H/O colonoscopy H/O breast surgery History of tubal ligation History of Problems with Anesthesia: No Social History Social History Household Members: Children Household Members Other:: son 18 yrs old Housing: Apartment Are you a primary plant health care technician to a significant other at home: No Do you presently have visiting nurse or other home services: Yes ([employer] bid for meds, [employer] PH[employer]IAN 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) Alcohol intake: never Patient Tobacco Use Status: Current everyday Tobacco user Tobacco use type: Cigarette Cigarette Packs Per Day: 2 Cigarettes Per Day: 40.0 Years Smoked: 30 Use of substances other than those prescribed or required for medical reasons: No Substance Use Type: Crack/Cocaine and Former Substance User Are you DNR?: No Advance Directives: No Advance Directives Information Provided: Yes service: No Current occupational status: unemployed Sexual orientation: Straight/Heterosexual Gender identity: Female Meds Allergies Allergy/AdvReac Type Severity Reaction Status Date / Time No Known Allergies Allergy Verified 12/30/23 13:38 [No Known Allergies*] Home Medications ?Medication ?Instructions ?Recorded ?Confirmed ?Last Taken ?Type atorvastatin 80 mg tablet (Lipitor) 80 mg PO DAILY 05/03/20 08/21/23 Unknown History docusate sodium 100 mg capsule 100 mg PO BID 05/03/20 08/21/23 Unknown History (Colace) lisinopril 5 mg tablet 5 mg PO DAILY 05/03/20 08/21/23 Unknown History metformin 1,000 mg tablet 1,000 mg PO BID 05/03/20 08/21/23 Unknown History oxcarbazepine 600 mg tablet 600 mg PO BEDTIME 05/03/20 08/21/23 Unknown History quetiapine 100 mg tablet (Seroquel) 100 mg PO DAILY 05/03/20 08/21/23 Unknown History sertraline 100 mg tablet (Zoloft) 200 mg PO DAILY 05/03/20 08/21/23 Unknown History dapagliflozin propanediol 5 mg 1 tab PO QAM diabetes mellitus 01/22/21 08/21/23 Unknown History tablet (Farxiga) polyethylene glycol 3350 17 gram 17 g PO DAILY 04/20/21 08/21/23 Unknown History oral powder packet (Miralax) budesonide-formoterol HFA 80 1 puff inhalation BID 06/07/22 08/21/23 Unknown History mcg-4.5 mcg/actuation aerosol inhaler (Symbicort) topiramate 50 mg tablet (Topamax) 50 mg PO BID 06/07/22 08/21/23 Unknown History trazodone 100 mg tablet 200 mg PO BEDTIME PRN Insomnia 06/07/22 08/21/23 Unknown History ketoconazole 2 % shampoo 2 appl topical DAILY 07/28/23 08/21/23 Unknown History naltrexone 50 mg tablet 50 mg PO DAILY 07/28/23 08/21/23 Unknown History paliperidone 6 mg tablet,extended 12 mg PO QAM 07/28/23 08/21/23 Unknown History release 24 hr (Invega) triamcinolone acetonide 0.1 % 0.1 appl topical DAILY 07/28/23 08/21/23 Unknown History topical cream ammonium lactate 12 % lotion topical BEDTIME 12/30/23 Unknown History blood sugar diagnostic (FreeStyle #10 ea 12/30/23 Unknown History Lite Strips) clotrimazole 1 % topical cream appl topical DAILY 12/30/23 Unknown History flash glucose sensor (FreeStyle #1 ea 12/30/23 Unknown History Jaylan 2 Sensor kit) insulin lispro protamine-lispro subcut 12/30/23 Unknown History 100 unit/mL (75-25) subcutaneous susp (Humalog Mix 75-25(U-100)Insuln) lancets 28 gauge (FreeStyle #100 ea 12/30/23 Unknown History Lancets) nicotine 21 mg/24 hr daily 1 patch topical DAILY 12/30/23 Unknown History transdermal patch olanzapine 5 mg tablet 5 mg PO BEDTIME 12/30/23 Unknown History pen needle, diabetic 32 gauge x #1,200 ea 12/30/23 Unknown History (BD Padmini 2nd Gen Pen Needle) Assessment and Plan Assessment Anesthesia Assessment: Chart Reviewed Final Anesthetic Review Family History of Problems with Anesthesia: No History of Problems with Anesthesia: No Documented by User: Sarina Finney MD 01/16/24 14:24 [facility] Active Problems Active Problems: All Active Problems Preop cardiovascular exam (Acute) Chest discomfort (Acute) History of syphilis (Acute) History of ductal carcinoma in situ (DCIS) of breast (Acute) Encounter to discuss test results (Acute) Pelvic pain in female (Acute) Encounter for annual routine gynecological examination (Acute) Anemia (Acute) Cecal polyp (Acute) Nipple discharge (Acute) Family history of breast cancer (Acute) Lobular carcinoma in situ (LCIS) of left breast (Acute) Ductal carcinoma in situ (DCIS) of breast (Acute) Hypertension (Acute) Diabetes mellitus (Acute) Depression (Acute) Breast calcification, left (Acute) H/o drug abuse- cocaine- patient states clean for 8 months Past Medical History Medical History History of syphilis History of syphilis History of ductal carcinoma in situ (DCIS) of breast Anxiety Serrated polyp of colon Cecal polyp Nipple discharge Elevated cholesterol Family history of breast cancer Lobular carcinoma in situ (LCIS) of left breast Ductal carcinoma in situ (DCIS) of breast Hypertension Diabetes mellitus Depression Breast calcification, left Family History Family History Sister History of breast cancer Family history of problems with anesthesia: No Surgical History Surgical History History of laparoscopic cholecystectomy H/O colonoscopy H/O breast surgery History of tubal ligation History of Problems with Anesthesia: No Social History Social History Household Members: Children Household Members Other:: son 18 yrs old Housing: Apartment Are you a primary plant health care technician to a significant other at home: No Do you presently have visiting nurse or other home services: Yes ([employer] bid for meds, [employer] PH[employer]ICIAN 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) Alcohol intake: never Patient Tobacco Use Status: Current everyday Tobacco user Tobacco use type: Cigarette Cigarette Packs Per Day: 2 Cigarettes Per Day: 40.0 Years Smoked: 30 Use of substances other than those prescribed or required for medical reasons: No Substance Use Type: Crack/Cocaine and Former Substance User Are you DNR?: No Advance Directives: No Advance Directives Information Provided: Yes service: No Current occupational status: unemployed Sexual orientation: Straight/Heterosexual Gender identity: Female Meds Allergies Allergy/AdvReac Type Severity Reaction Status Date / Time No Known Allergies Allergy Verified 12/30/23 13:38 [No Known Allergies*] Home Medications ?Medication ?Instructions ?Recorded ?Confirmed ?Last Taken ?Type atorvastatin 80 mg tablet (Lipitor) 80 mg PO DAILY 05/03/20 08/21/23 Unknown History docusate sodium 100 mg capsule 100 mg PO BID 05/03/20 08/21/23 Unknown History (Colace) lisinopril 5 mg tablet 5 mg PO DAILY 05/03/20 08/21/23 Unknown History metformin 1,000 mg tablet 1,000 mg PO BID 05/03/20 08/21/23 Unknown History oxcarbazepine 600 mg tablet 600 mg PO BEDTIME 05/03/20 08/21/23 Unknown History quetiapine 100 mg tablet (Seroquel) 100 mg PO DAILY 05/03/20 08/21/23 Unknown History sertraline 100 mg tablet (Zoloft) 200 mg PO DAILY 05/03/20 08/21/23 Unknown History dapagliflozin propanediol 5 mg 1 tab PO QAM diabetes mellitus 01/22/21 08/21/23 Unknown History tablet (Farxiga) polyethylene glycol 3350 17 gram 17 g PO DAILY 04/20/21 08/21/23 Unknown History oral powder packet (Miralax) budesonide-formoterol HFA 80 1 puff inhalation BID 06/07/22 08/21/23 Unknown History mcg-4.5 mcg/actuation aerosol inhaler (Symbicort) topiramate 50 mg tablet (Topamax) 50 mg PO BID 06/07/22 08/21/23 Unknown History trazodone 100 mg tablet 200 mg PO BEDTIME PRN Insomnia 06/07/22 08/21/23 Unknown History ketoconazole 2 % shampoo 2 appl topical DAILY 07/28/23 08/21/23 Unknown History naltrexone 50 mg tablet 50 mg PO DAILY 07/28/23 08/21/23 Unknown History paliperidone 6 mg tablet,extended 12 mg PO QAM 07/28/23 08/21/23 Unknown History release 24 hr (Invega) triamcinolone acetonide 0.1 % 0.1 appl topical DAILY 07/28/23 08/21/23 Unknown History topical cream ammonium lactate 12 % lotion topical BEDTIME 12/30/23 Unknown History blood sugar diagnostic (FreeStyle #10 ea 12/30/23 Unknown History Lite Strips) clotrimazole 1 % topical cream appl topical DAILY 12/30/23 Unknown History flash glucose sensor (FreeStyle #1 ea 12/30/23 Unknown History Jaylan 2 Sensor kit) insulin lispro protamine-lispro subcut 12/30/23 Unknown History 100 unit/mL (75-25) subcutaneous susp (Humalog Mix 75-25(U-100)Insuln) lancets 28 gauge (FreeStyle #100 ea 12/30/23 Unknown History Lancets) nicotine 21 mg/24 hr daily 1 patch topical DAILY 12/30/23 Unknown History transdermal patch olanzapine 5 mg tablet 5 mg PO BEDTIME 12/30/23 Unknown History pen needle, diabetic 32 gauge x #1,200 ea 12/30/23 Unknown History (BD Padmini 2nd Gen Pen Needle) Exam Height,Weight and Vital Signs: Height 5 ft 4 in Weight 75.75 kg Vital Signs Temp Pulse Resp BP Pulse Ox O2 Del Method 01/16/24 13:06 67 18 01/16/24 11:40 98.0 F 70 16 98/60 93 Room Air Pertinent Lab Results Pertinent Lab Results: Lab Results 01/16/24 Range/Units 12:12 POC Glucose 120 H (60-115) mg/dL Airway Mallampati Class: III TM Dist: >3cm Neck ROM: Full Loose/Missing/Broken Teeth: Yes (Edentulous) Heart: RRR Lungs: Bilateral wheezing. Lungs CTAB post respiratory treatment Other: Patient sleepy but easily arousable. Answered questions appropriately Assessment and Plan Assessment Anesthesia Assessment: Anesthesia Plan Discussed and Chart Reviewed Final Anesthetic Review Family History of Problems with Anesthesia: No History of Problems with Anesthesia: No NPO: Yes ASA Class: III Final Preanesthetic Review: No Changes in Pt Med Stat, Meds/Allgs Chart Reviewed, Consent Obtained/Reviewed and Anes Risks/Benef Reviewed Patient Risk: Intermediate Procedure Risk: Low Assessment/Block/Sedation in SS: Assess/Block/Sedation-SS Anesthetic Plan Anesthetic Plan: TIVA Disposition: Standard PACU
[2024-01-16 11:40] VITALS: BP 98/60; PULSE 70; RESP 16; TEMP 36.7; O2SAT 93; BMI 28.7
[2024-01-16 12:17] LABS: Glucose, Whole Blood 120 mg/dL (60-115)
--- NOTE | 2024-01-16 12:57 | MHC.SHP ---
Pre-Procedural Eval Section A - 24 Hr Update-Section A only Date of Service: 01/16/24 The patient is an INPATIENT: No Changes since office visit: Yes Patient answered all questions; No Cold of Flu in the past 2 weeks, No New Medical Problems and No Changes in Medication The patient has been examined within 24 hours of the surgical procedure. The History & Physical has been completed within 30 days and I have reviewed it.: Yes Section B - Complete if H&P > 30 days Chief Complaint: Chronic idiopathic constipation Allergies: Allergies Allergy/AdvReac Type Severity Reaction Status Date / Time No Known Allergies Allergy Verified 12/30/23 13:38 [No Known Allergies*] Exam Surgical H&P Exam: Normal: Heart, Normal: Lungs, Normal: Extremities and Normal: Abdomen Plan Diagnosis/Plan: Unchanged I have reviewed the history and physical and performed a pertinent physical examination on my patient. No changes have occurred unless specified. Time Spent With Patient Time: Total time managing care of this patient today ____ minutes.
[2024-01-16 13:06] VITALS: PULSE 67; RESP 18; O2SAT 98
[2024-01-16] MEDS: Albuterol Sulfate (0.083%) 2.5 MG/3 ML VIAL.NEB INHALE (13:06)
[2024-01-16 14:35] VITALS: BP 85/45; PULSE 67; RESP 16; TEMP 36.5; O2SAT 96
--- NOTE | 2024-01-16 14:35 | HO.OPN-COLON ---
Colonoscopy Operative Note Operative Note Date of Service: 01/16/24 Narrative: COLONOSCOPY TILL CECUM Pre-op diagnosis: Surveillance for colon polyps, patient is status post right hemicolectomy in 2021 for sessile serrated polyp at the appendical orifice. Post-op diagnosis:? Hemorrhoids Endoscopist:? Verona Gomez MD Anesthesia:?MAC Consent: Indications for the procedure and potential complications of bleeding, perforation, reaction to medications and missed diagnosis were discussed with the patient and informed consent was obtained. Instrument: Olympus PCF H 190 L variable stiffness pediatric colonoscope Monitoring: Vital signs and clinical assessment, intermittent blood pressure monitoring, continuous EKG monitoring, Pulse oximetry and Carbon Dioxide monitoring were done throughout the procedure. Please see anesthesia flowsheet. Colon withdrawl time was 15 minutes. Procedure: The patient was placed in the left lateral decubitis position and pre-procedure medications were administered. After a digital rectal examination of the ano-rectum, the video colonoscope was inserted into the rectum and advanced through the colon to the ileo-colic anastomosis in the proximal transverse colon. The colonoscope was slowly withdrawn in a retrograde panoramic fashion and the colon mucosa was carefully examined including a retroflexed view of the rectum. Findings and interventions are described below. Procedure Difficulty: Colon was long and tortuous and there was spasm and some loop forming Findings: Terminal Ileum: King-terminal ileum appeared normal Transverse Colon: Normal Descending Colon: Normal Sigmoid Colon: Normal Rectum: Normal Ano-rectum: Moderate internal hemorrhoids Colon preparation: Fair despite copious irrigationn and poor in some areas of the colon. Approx 70% of the colon mucosa was visualized. There was undigested vegetable matter which could not be suctioned [place] Bowel Preparation Scale Right colon; 1 Transverse colon: 1 Left colon; 1 (0 = Unprepared colon segment with mucosa not seen due to solid stool that cannot be cleared. 1 = Portion of mucosa of the colon segment seen, but other areas of the colon segment not well seen due to staining, residual stool and/or opaque liquid. 2 = Minor amount of residual staining, small fragments of stool and/or opaque liquid, but mucosa of colon segment seen well. 3 = Entire mucosa of colon segment seen well with no residual staining, small fragments of stool or opaque liquid) Impression and Post Procedure Diagnosis: Colonoscopy Findings: No polyps were detected. Prep was fair despite copious irrigation and poor in some areas of the colon. Approx 70% of the colon mucosa was visualized. There was undigested vegetable matter which could not be suctioned Moderate hemorrhoids on retroflexed exam. Plan: Pt has a FU appointment on 01/30/24 with Adriana Cody NP Repeat Colonoscopy in 2- 3 years due to history of adenomatous colon polyps and suboptimal prep on colonoscopy today (Dulcolax 10 mg daily starting 5 days prior to colonoscopy appt versus 2 day prep for next colonoscopy). Above findings were reviewed with the patient and relevant handouts were given and the discharge area.
[2024-01-16 14:50] VITALS: BP 115/73; PULSE 76; RESP 16; TEMP 36.5; O2SAT 97
== END 2024-01-16 15:19 | disposition home or self-care (01) ==
PROVIDERS: Visit Provider Internal Medicine Gastroenterology
PROC: 0DJD8ZZ Inspection of Lower Intestinal Tract, Via Natural or Artificial Opening Endoscopic (ICD-10-PCS; CPT 45378; principal; 2024-01-16 12:30)
DX: R19.5 Other fecal abnormalities (principal); Z86.0101 Personal history of adenomatous and serrated colon polyps; K58.2 Mixed irritable bowel syndrome; K59.01 Slow transit constipation; K64.8 Other hemorrhoids; Z98.0 Intestinal bypass and anastomosis status; R14.0 Abdominal distension (gaseous); K21.9 Gastro-esophageal reflux disease without esophagitis; D05.12 Intraductal carcinoma in situ of left breast; Z92.3 Personal history of irradiation; Z79.810 Long term (current) use of selective estrogen receptor modulators (SERMs); D50.9 Iron deficiency anemia, unspecified; E78.5 Hyperlipidemia, unspecified; E03.8 Other specified hypothyroidism; F25.9 Schizoaffective disorder, unspecified; R56.9 Unspecified convulsions; E11.21 Type 2 diabetes mellitus with diabetic nephropathy; Z79.4 Long term (current) use of insulin; Z79.84 Long term (current) use of oral hypoglycemic drugs; Z79.899 Other long term (current) drug therapy; Z90.49 Acquired absence of other specified parts of digestive tract; Z98.890 Other specified postprocedural states; F17.210 Nicotine dependence, cigarettes, uncomplicated; Z56.0 Unemployment, unspecified; M62.08 Separation of muscle (nontraumatic), other site
CPT/HCPCS: 45378; 82947; J1596; J2003; J2704

== ENCOUNTER → 2024-01-16 10:50 | Outpatient (BNV) | payer MEDICAID, SELFPAY | PROVIDERS: Visit Provider Internal Medicine Gastroenterology | DX: Z12.11 Encounter for screening for malignant neoplasm of colon (principal); Z86.0101 Personal history of adenomatous and serrated colon polyps; Z90.49 Acquired absence of other specified parts of digestive tract; K64.8 Other hemorrhoids | CPT/HCPCS: 45378 ==

== ENCOUNTER 2024-02-24 09:34 | Outpatient (REF) | payer MEDICAID, SELFPAY ==
[2024-02-24] MEDS: iohexoL 350 MG/ML 100 ML INFUS..BTL IV (12:54)
[2024-02-24] MEDS: Barium Sulfate Oral (Mocha) 450 ML ORAL.SUSP PO ×2 (12:55)
[2024-02-25 14:39] LABS: Creatinine POC 1.1 mg/dL (0.5-1.4); GFR POC 56
== END 2024-02-24 09:35 | disposition home or self-care (01) ==
LOC: HO.CT 09:34
PROVIDERS: Visit Provider Nurse Practitioner Family
DX: R10.9 Unspecified abdominal pain (principal)
CPT/HCPCS: 74177; 82565; Q9967

== ENCOUNTER → 2024-02-24 09:36 | Outpatient (BNV) | payer MEDICAID, SELFPAY | PROVIDERS: Visit Provider Radiology Diagnostic Radiology | DX: K43.9 Ventral hernia without obstruction or gangrene (principal); K44.9 Diaphragmatic hernia without obstruction or gangrene; R10.9 Unspecified abdominal pain | CPT/HCPCS: 74177 ==

== ENCOUNTER 2024-06-02 13:15 | Outpatient (REF) | payer MEDICAID, SELFPAY ==
[2024-06-02 14:33] LABS: MANUAL DIFF FLAG NO
[2024-06-02 15:26] LABS: Basophils Absolute Auto 0.1 X10*3/uL (0.0-0.2); Basophils Percent Auto 0.9 % (0-2); Eosinophils Absolute Auto 0.1 X10*3/uL (0.0-0.4); Hematocrit 46.1 % (37.0-47.0); Hemoglobin 14.3 g/dl (12.0-16.0); Imm Gran Abs Auto 0.03 X10*3/uL (0.00-0.03); Imm Gran Pct Auto 0.3 % (0.0-0.4); Lymphocytes Absolute Auto 2.2 X10*3/uL (1.2-4.9); Lymphocytes Percent Auto 24.3 % (20-40); Mean Corpuscular Hemoglobin 27.3 pg (27.0-33.0); Mean Platelet Volume 10.2 fL (9.4-12.3); Monocytes Absolute Auto 0.6 X10*3/uL (0.1-1.2); Monocytes Percent Auto 6.5 % (2-11); Platelet Count 286 X10*3/uL (160-400); Red Blood Count 5.24 X10*6/uL (4.20-5.50); Red Cell Distribution Width 13.7 % (11.0-16.0)
[2024-06-02 16:21] LABS: Alanine Aminotransferase 18 U/L (0-31); Albumin Level 3.8 g/dL (3.5-5.0); Alkaline Phosphatase 84 U/L (39-117); Anion Gap 11 (12-20); Aspartate Amino Transferase 20 U/L (5-31); Bilirubin Total 0.3 mg/dL (0.0-1.0); Blood Urea Nitrogen 4 mg/dL (9-16); Calcium 9.4 mg/dL (8.4-10.2); Carbon Dioxide 29 mmol/L (22-29); Chloride 108 mmol/L (96-108); Estimated Glomerular Filt Rate > 60; Glucose Random 188 mg/dL (60-115); Potassium 3.6 mmol/L (3.3-5.1); Sodium 144 mmol/L (135-145); Total Protein 7.2 g/dL (6.5-8.0)
== END 2024-06-02 13:16 | disposition home or self-care (01) ==
LOC: HO.LAB 13:15
PROVIDERS: Absent Provider Internal Medicine Medical Oncology; PCP Registered Nurse; Visit Provider Nurse Practitioner Family
DX: D05.10 Intraductal carcinoma in situ of unspecified breast (principal); K59.04 Chronic idiopathic constipation; K58.1 Irritable bowel syndrome with constipation; R14.0 Abdominal distension (gaseous); M62.08 Separation of muscle (nontraumatic), other site
CPT/HCPCS: 36415; 80053; 85025; 99212

== ENCOUNTER 2024-06-02 13:15 | Outpatient (AMB) | payer MEDICAID, SELFPAY ==
--- NOTE | 2024-06-02 13:22 | MHC.OFFVIS ---
Vital Signs 06/02/24 13:39 Height 5 ft 4 in Weight 145 lb 1.027 oz BMI 24.9 BP 112/60 Blood Pressure Location Lt brachial Position Sitting Pulse 76 Pulse Source Pulse Oximeter Pulse Oximetry (%) 95 Oxygen Delivery Method Room Air Intake Visit Reasons: CT scan results Intake Note: ESTABLISHED PATIENT for mgmt of anemia + constipation. Imaging done. Labs outstanding. Call to Isara 05/14 Chief Complaint; C/O occasional GERD + dysphagia. Pt denies any fecal abn or abd pain. No additional concerns or sx at this time. Pt plans on getting labs done today. [employer] Boatsw[employer] Mate Required: Yes Allergies No Known Allergies [No Known Allergies*] Allergy (Verified 06/02/24 13:22) HPI HPI CT scan results: Details: LAST VISIT Constipation IBS (irritable bowel syndrome) Postprandial abdominal bloating Rectus diastasis Plan Patient will start taking Dulcolax. Patient was encouraged to increase fluid intake and activity to promote better bowel motility. Patient will be sent for CT scan and will return in 2-3 months so we can discuss going for possible colonoscopy. Negative abdominal exam except for diastasis recti. Patient is agreeable to plan of care and verbalizes understanding of instructions. She was given the opportunity to ask questions and all questions answered. Orders Orders Creatinine Today R10.11 CT abdomen pelvis w IV con Today R10.9 Blood Urea Nitrogen Today R10.11 Medications Refilled bisacodyl (Dulcolax (bisacodyl)) 10 mg (2 x 5 mg) PO BEDTIME 180 tabs 4RF COLONOSCOPY Findings: Terminal Ileum: King-terminal ileum appeared normal Transverse Colon: Normal Descending Colon: Normal Sigmoid Colon: Normal Rectum: Normal Ano-rectum: Moderate internal hemorrhoids Colon preparation: Fair despite copious irrigationn and poor in some areas of the colon. Approx 70% of the colon mucosa was visualized. There was undigested vegetable matter which could not be suctioned [place] Bowel Preparation Scale Right colon; 1 Transverse colon: 1 Left colon; 1 (0 = Unprepared colon segment with mucosa not seen due to solid stool that cannot be cleared. 1 = Portion of mucosa of the colon segment seen, but other areas of the colon segment not well seen due to staining, residual stool and/or opaque liquid. 2 = Minor amount of residual staining, small fragments of stool and/or opaque liquid, but mucosa of colon segment seen well. 3 = Entire mucosa of colon segment seen well with no residual staining, small fragments of stool or opaque liquid) Impression and Post Procedure Diagnosis: Colonoscopy Findings: No polyps were detected. Prep was fair despite copious irrigation and poor in some areas of the colon. Approx 70% of the colon mucosa was visualized. There was undigested vegetable matter which could not be suctioned Moderate hemorrhoids on retroflexed exam. Plan: Pt has a FU appointment on 01/30/24 with Adriana Cody NP Repeat Colonoscopy in 2- 3 years due to history of adenomatous colon polyps and suboptimal prep on colonoscopy today (Dulcolax 10 mg daily starting 5 days prior to colonoscopy appt versus 2 day prep for next colonoscopy). TODAY'S VISIT Patient is here today for follow-up and to discuss colonoscopy results and CT scan results. Patient reports to be feeling fairly well. Discussed with patient and her central melt specialist her results from both colonoscopy and CT scan. Normal CT scan. Colonoscopy patient had suboptimal prep and will need to repeat colonoscopy in 2-3 years. No polyps found, moderate internal hemorrhoids. Patient denies any abdominal pain or discomfort. Occasional abdominal bloating. Currently patient is moving her bowels better. She is taking Dulcolax and stool softeners daily. Discussed with patient trying to quit smoking. Currently patient is smoking 2 packs a day. Patient denies dyspepsia, dysphagia or odynophagia. Denies any acid reflux. Denies any melena, hematochezia, unintentional weight loss or ribbon like stools [facility] Medical History History of syphilis History of syphilis History of ductal carcinoma in situ (DCIS) of breast Anxiety Serrated polyp of colon Cecal polyp Nipple discharge Elevated cholesterol Family history of breast cancer Lobular carcinoma in situ (LCIS) of left breast Ductal carcinoma in situ (DCIS) of breast Hypertension Diabetes mellitus Depression Breast calcification, left Surgical History History of laparoscopic cholecystectomy H/O colonoscopy H/O breast surgery History of tubal ligation Family History Sister History of breast cancer Social History Household Members: Children Household Members Other:: son 18 yrs old Housing: Apartment Are you a primary acute care nurse practitioner to a significant other at home: No Do you presently have visiting nurse or other home services: Yes ([facility] bid for meds, [employer] 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) Alcohol intake: never Patient Tobacco Use Status: Current everyday Tobacco user Tobacco use type: Cigarette Cigarette Packs Per Day: 2 Cigarettes Per Day: 40.0 Years Smoked: 30 Substance Use Type: Crack/Cocaine and Former Substance User service: No Current occupational status: unemployed Sexual orientation: Straight/Heterosexual Gender identity: Female Female Reproductive History Menstrual Age of Menarche: 14 Review of Systems Const Denies weight gain and Denies weight loss ENT Reports no additional complaints, Denies dysphagia and Denies odynophagia Card Reports no additional complaints Resp Reports no additional complaints GI Denies abdominal pain, Denies belching, Denies melena, Reports bloating (Occasional), Denies change in bowel habits, Reports constipation (Improved), Denies dysphagia, Denies excessive flatus, Denies dyspepsia, Denies heartburn, Denies diarrhea, Denies loose stools, Denies nausea, Denies odynophagia and Denies vomiting Musc Reports no additional complaints Neuro Reports no additional complaints Psych Reports no additional complaints Endo Reports no additional complaints Physical Exam Const General: healthy appearing and no acute distress Nutritional Appearance: obese Orientation/consciousness: patient oriented x3 Eyes General: appearance normal, both eyes and all related structures Neck Neck: Yes normal visual inspection, Yes full ROM and Yes trachea midline Thyroid: Thyroid normal Resp Effort & Inspection: normal respiratory effort, able to speak in complete sentences, no tracheal deviation and symmetric chest movement Auscultation: clear to auscultation bilaterally Cardio Rate: regular rate GI Inspection: Yes normal to inspection, Yes distended and Yes obesity Palpation (GI): Soft to palpation, not firm and nontender Auscultation: Hypoactive bowel sounds present General: Yes no CVA tenderness Back/Spine/Pelvis Back: no CVA tenderness Skin General skin exam: elasticity normal, turgor normal and dry skin Neuro General: patient oriented x3 Psych Appearance: grossly normal Mental Status: mental status grossly normal Results Reviewed Results Reviewed: CT OF ABDOMEN AND PELVIS FINDINGS: LOWER CHEST: The visualized lung bases are clear. There is no pleural effusion. CARDIOVASCULATURE: The heart is normal in size. There is no pericardial effusion. LIVER: The liver is normal in size and contour. No liver mass is identified. The hepatic and portal veins are patent. GALLBLADDER / BILE DUCTS: The gallbladder is unremarkable. There is no intra or extrahepatic biliary ductal dilatation. SPLEEN: The spleen is normal in size. No focal splenic lesion is identified. PANCREAS: The pancreas is unremarkable in appearance. ADRENAL GLANDS: Within normal limits. KIDNEYS/RETROPERITONEUM: No renal calculi are identified. There is no hydronephrosis. There is a 10 mm cyst at the upper pole of the left kidney. LYMPH NODES: No abdominal or pelvic lymphadenopathy. VASCULATURE: The abdominal aorta is normal in caliber. MESENTERY/PERITONEUM: No free fluid. No masses. There is no free intraperitoneal gas. STOMACH: There is a small hiatal hernia. The remainder of the stomach is collapsed. SMALL BOWEL: The small bowel is normal in caliber. COLON: The colon is unremarkable. APPENDIX: The appendix is surgically absent. URINARY BLADDER/PELVIC ORGANS: The urinary bladder is unremarkable. The uterus is unremarkable. BONES / SOFT TISSUES: There is a small fat-containing umbilical hernia and an additional small fat-containing ventral hernia just above the umbilicus. There is degenerative disc disease of the L5-S1 level. CT/CT abdomen pelvis w IV con IMPRESSION: Small fat-containing ventral hernias. Small hiatal hernia. No inflammatory process is identified. Assessment & Plan Assessment & Plan (1) Constipation: Code(s): K59.00 - Constipation, unspecified Qualifiers: Constipation type: chronic idiopathic constipation Qualified Code(s): K59.04 - Chronic idiopathic constipation (2) IBS (irritable bowel syndrome): Code(s): K58.9 - Irritable bowel syndrome, unspecified Qualifiers: Irritable bowel syndrome type: with constipation Qualified Code(s): K58.1 - Irritable bowel syndrome with constipation (3) Postprandial abdominal bloating: Code(s): R14.0 - Abdominal distension (gaseous) (4) Rectus diastasis: Code(s): M62.08 - Separation of muscle (nontraumatic), other site Plan Continue taking Dulcolax and stool softeners. May use milk of magnesia as needed. Increase fluid intake and activity to promote better bowel motility. Patient was encouraged to stop smoking. Currently she is smoking 2 packs a day. Avoid dietary triggers and late night snacking. Staying upright for minimum 3 hours after meals discussed with patient. Both patient and her central melt specialist are agreeable to plan of care and verbalizes understanding of instructions. They were given the opportunity to ask questions and all questions answered. Thank you for allowing me to participate in her care Medications: New docusate sodium (Colace) 100 mg PO BID 90 caps 2RF Refilled magnesium hydroxide (Milk of Magnesia) 10 mL PO DAILY PRN 355 mL 0RF constipation bisacodyl (Dulcolax (bisacodyl)) 10 mg (2 x 5 mg) PO BEDTIME 180 tabs 4RF Discontinued sennosides (senna) Discontinued Reason: Doctor's Order 17.2 mg (2 x 8.6 mg) PO BEDTIME 60 tabs 4RF for constipation Coding Level of Care Code Est Pt Level 4 (03396) Complex EM visit Add On G2211 Diagnoses Chronic idiopathic constipation K59.04 Constipation type: chronic idiopathic constipation Irritable bowel syndrome with constipation K58.1 Irritable bowel syndrome type: with constipation Postprandial abdominal bloating R14.0 Rectus diastasis M62.08 Time Spent (min) 40 Comment 25 minutes spent with patient and additional 15 minutes spent reviewing her records
[2024-06-02 13:39] VITALS: BP 112/60; PULSE 76; O2SAT 95; BMI 24.9
--- OUTSIDE RECORDS SUMMARY | 2024-06-02 15:44 | XMS_ITS | Patient Health Record ---
Author Organization [facility] Address [address] [place] [address] Care Team Providers Care Registered Nurse Maternal Child Name Role Phone Cruz Colindres Jessica Primary Care Provider Pedro Correa [phone] Reason For Referral No Information Medications Medication SIG (Take, Route, Frequency, Duration) Notes Start Date End Date Status SEROquel 100 MG 1 tablet at bedtime Orally Once a day for 30 day(s) Active Invega Sustenna 234 MG/1.5ML 1.5 ml Intramuscular for 30 day(s) Active Nicotine Polacrilex 4 MG 1 piece for 30 minute as needed Mouth/Throat 24 time(s) a day Active OXcarbazepine 600 MG Oral for 90 Active HumaLOG Mix 75/25 (75-25) 100 UNIT/ML as directed Subcutaneous Act jay jay QUEtiapine Fumarate 200 MG 1 tablet Oral Once a day Active MiraLax 17 GM 1 packet mixed with 8 ounces of fluid Orally Once a day for 30 day(s) Active Colace 100 MG 1 capsule as needed Orally Once a day for 30 day(s) Active Lisinopril 5 MG 1 tablet Orally Once a day for 30 day(s) Active MiraLax (colon prep) 17 GM/SCOOP mixed with Gatorade or Crystal Light Orally Take as directed 2 days before and 1 day before the colonoscopy for 2 days 01/27/2021 Active Farxiga 5 MG 1 tablet Orally Once a day for 30 day(s) Active metFORMIN HCl 1000 MG 1 tablet with a me al Oral bid Active Dulcolax (colon prep) 5 MG Take as direc veronica 2 days before the colonoscopy, and then take at 3:00 p.m and 7:00p.m the day before the colonoscopy Orally Take 2 pills 2 days before the colonoscopy, and then two tablets twice a day the day before the colonoscopy for 2 days 01/27/2021 Active MiraLax (colon prep) 17 GM/SCOOP 2 238Gm bottles mixed with Gatorade or Crystal Light Orally Use 2 days before and 1 day before the colonoscopy as directed for 2 days 01/30/2021 Active Clotrimazole 1 % 1 application Parts Counter Sales Person ally Twice a day for 28 day(s) Active Atorvastatin Calcium 80 MG Oral for 90 Active Nicotine 21 MG/24HR 1 patch to skin Transdermal Once a day for 30 day(s) Active Ferrous Sulfate 325 (65 Fe) MG Oral for 90 Active Tamoxifen Citrate 20 MG 1 tablet Orally Once a day for 30 day(s) Active traZODone HCl 100 MG 1 tablet at bedtime Oral prn Active Immunizations Vaccine Route Administration Date Status Comme nts Influenza Unknown 01/10/2021 Administered Social History Tobacco Use: Social History Observation Description Date Details (start date - stop date) Current Smoker NA - NA Tobacco Use/Smoking Question Answer Notes Patient is a current smoker How often do you smoke cigarettes? every day Alcohol Screen Question Answer Notes Did you have a drink containing alcohol in the p ast year? No Points 0 Interpretation Negative Section Notes: She does smoke but denies an y significant alcohol use Problems Problem Type SNOMED Code ICD Code Onset Dates Problem Status W/U Status Risk Notes Problem Gastroesophageal reflux disease (857854735) Gastroesophageal reflux disease (K21.9) Active confirmed Problem Iron deficiency anemia (07988997) Iron deficiency anemia (D50.9) Active confirmed Problem [id number] Iron deficiency anemia due to chronic blood loss (D50.0) Active confirmed Plan Of Treatment Future Test Test Name Order Date UPPER GI ENDOSCOPY 01/24/2021 COLONOSCOPY 01/24/2021 Insurance Providers Payer Name Payer Address Payer Phone Subscriber Number Group Number Insured Name Patient Relationship to Insured Coverage Start Date Coverage End Date MEDICAID OF [employer] [address] [place] [id number] SAI MORA Self - patient is the insured Medical (General) History Surgical History Surgery Date(Month/Year) Breast surgery with a left lumpectomy as above Tubal ligation
--- OUTSIDE RECORDS SUMMARY | 2024-06-02 15:44 | XMS_ITS | Clinical Summary ---
Author Organization [facility] Address [address] [place] [address] Phone Care Team Providers Care Loom Starter Name Role Phone Ana Luisa Bourne RN Primary Care Provider Allergies No known active allergies Medications clotrimazole (LOTRIMIN) 1 % cream Apply to skin and toenails daily for 12 weeks Active ammonium lactate (LAC-HYDRIN) 12 % lotion Apply to soles of feet daily. At night wear socks to bed Active white petrolatum 42 % ointment Apply 1 Applicator topically as needed for Dry Skin for up to 360 days. Active albuterol sulfate (ProAir RespiClick) 90 mcg/actuation aerosol powdr breath activated Inhale into the lungs. Active atorvastatin (LIPITOR) 80 mg tablet Take 1 Tablet by mouth daily. Active budesonide-formo teroL (SYMBICORT) 80-4.5 mcg/actuation inhaler Inhale 2 Puffs into the lungs 2 times daily. Active dapagliflozin propanediol (FARXIGA) 10 mg tablet Take by mouth. Activ e docusate sodium (COLACE) 100 mg capsule Take 1 Capsule by mouth 2 times daily. Active emollient combination no.39 (EMOLLIA TOP) Emollient (Emollia-Lotion ) Lotion Patient sig: Apply topically. Active ferrous sulfate 325 mg (65 mg elemental iron) tablet Take 1 Tablet by mouth daily. Active fluticasone propionate (FLONASE) 50 mcg/actuation nasal spray 2 Sprays by Each Nare route daily. Active ibuprofen (ADVIL,MOTRIN) 200 mg tablet Take 1 Tablet by mouth every 6 hours as needed. Active insulin lispro 100 unit/mL injection Inject as directed. Active lisinopriL (PRINIVIL,ZESTRI L) 5 mg tablet Take 1 Tablet by mouth daily. Active metFORMIN (GLUCOPHAGE) 500 mg tablet Take 1 Tablet by mouth 2 times daily (with meals). Active naltrexone HCl (DEPADE ORAL) Take by mouth. A ctive OXcarbazepine (TRILEPTAL) 150 mg tablet Take 1 Tablet by mouth 2 times daily. Active paliperidone (INVEGA) 3 mg 24 hr tablet Take 1 Tablet by mouth every morning. Active QUEtiapine (SEROquel) 100 mg tablet Take 1 Tablet by mouth 2 times daily. Active sennosides 8.6 mg capsule Take by mouth. Acti ve sertraline (ZOLOFT) 100 mg tablet Take 1 Tablet by mouth daily. Active tamoxifen citrate (NOLVADEX ORAL) Take by mouth. Active topiramate (TOPAMAX SPRINKLE) 25 mg capsule Take 1 Capsule by mouth 2 times daily. Active traZODone (DESYREL) 100 mg tablet Take 1 Tablet by mouth at bedtime. Active triamcinolone (KENALOG) 0.1 % cream Apply topically 2 times daily. Active Encounters Date Type Department Care Team Description 04/13/2024 10:45 AM EST Office Visit Orthopedic Surgery - [address] [address] Teodoro Palomino DPM Acquired hammer toe of right foot (Primary Dx); Bilateral foot pain; Dermatophytosis of nail; Tinea pedis of both feet; Hammer toe of left foot; Pain in toe of right foot; Pain in toe of left foot; Difficulty walking; Type II diabetes mellitus with peripheral circulatory disorder (CMS/HCC); Diabetic mononeuropathy simplex (CMS/HCC); Corns and callosities; Xerosis of skin; Metatarsalgia of both feet from Last 3 Months Social History Tobacco Use Types Packs/Day Years Used Date Smoking Tobacco: Never Assessed Comments Unknown Sex and Gender Information Value Date Recorded Sex Assigned at Not on file Legal Sex Female 3:00 AM EST Gender Identity Not on file Sexual Orientation Not on file Last Filed Vital Signs Vital Sign Reading Time Taken Comments Blood Pressure - - Pulse - - Temperature - - Respiratory Rate - - Oxygen Saturation - - Inhaled Oxygen Concentration - - Weight 64.9 kg (143 lb) 04/13/2024 10:43 AM EST Height 162.6 cm (5' 4.02 ) 04/13/2024 10:[address] Body Mass Index 24.53 04/13/2024 10:43 AM EST Plan of Treatment Upcoming Encounters Date Type Department Care Team (Late st Contact Info) Description 06/15/2024 10:15 AM EDT Office Visit Orthopedic Surgery - [place] [address] [address] Teodoro Palomino, ROXANN [address] [address] Health Maintenance Due Date Last Done Comments Breast Cancer Screening 1972 Diabetes: Annual GFR (Glomerular Filtration Rate) 1972 Diabetes: Annual Foot Exam 1982 Diabetes: Annual Retina Eye Exam 1982 Zoster Vaccines (1 of 2) 07/06/1991 Cervical Cancer Screening: Pap Smear 1993 Colorectal Cancer Screening: Colonoscopy 02/10/2022 HIV Screening 02/10/2022 Hepatitis C Screening 02/10/2022 Social Influencers of Health Screening 02/10/2022 Diabetes: Annual Urine Albumin-Creatinine Ratio (uACR) 04/13/2024 Hypertension/CHF/CAD Annual BMP Blood Test 04/13/2024 Diabetes: Blood Sugar Control Test (HGBA1C) 06/28/2024 12/29/2023 Depression Screening 12/17/2024 12/18/2023 DTaP,Tdap,and Td Vaccines (3 - Td or Tdap) 05/28/2028 05/28/2018, 07/06/2008 Cholesterol Screening (Lipid Panel) 07/29/2028 07/30/2023 Hepatitis A Vaccines Aged Out 05/17/2021, 10/15/19 19 No longer eligible based on patient's age to complete this topic Hepatitis B Vaccines Completed 05/17/2021, 10/14/2018, 06/18/2018 Pneumococcal Vaccine: 50+ Years Completed 04/18/2023, 05/28/2018, 11/29/2015, Additional history exists Pneumococcal Vaccine: Pediatrics (0 to 5 Years) and At-Risk Patients (6 to 64 Years) Completed 04/18/2023, 05/28/2018, 11/29/2015, Additional history exists Influenza Vaccine Completed 11/17/2023, , 03/22/2022, Additional history exists COVID-19 Vaccine Completed 11/27/2023, , 03/22/2022 HIB Vaccines Aged Out No longer eligi ble based on patient's age to complete this topic HPV Vaccines Aged Out No longer eligi ble based on patient's age to complete this topic IPV Vaccines Aged Out No longer eligi ble based on patient's age to complete this topic MMR Vaccines Aged Out No longer eligi ble based on patient's age to complete this topic Meningococcal ACWY Vaccine Aged Out N o longer eligible based on patient's age to complete this topic Meningococcal B Vacine Aged Out No lo nger eligible based on patient's age to complete this topic RSV Immunization Patients Under 20 months Aged Out No longer eligible based on patient's age to complete this topic Varicella Vaccines Aged Out No longer eligible based on patient's age to complete this topic Procedures Procedure Name Priority Date/Time Associated Diagnosis Comments XR FOOT 3+ VIEWS BILAT Routine 04/13/2024 11:00 AM EST Bilateral foot pain from Last 3 Months Results * XR Foot 3+ Views bilat (04/13/2024 11:00 AM EST) Anatomical Region Laterality Modality Lower Extremities, Foot Bilateral Computed Radiography Narrative 04/13/2024 12:18 PM EST Right foot ??3 views No fracture. No radiopaque foreign joint spaces normal ?? Mild hammertoe contracture lesser digits 2345 Foot position rectus Normal talus navicular position normal calcaneal inclination normal symes line talus navicular joint to calcaneal cuboid joint Left foot 3 views No fracture. No radiopaque foreign joint spaces normal ?? Mild hammertoe contracture lesser digits 2345 Foot position rectus Normal talus navicular position normal calcaneal inclination normal symes line talus navicular joint to calcaneal cuboid joint Teodoro Palomino DPM IMG XR PROCEDURES Final R esult from Last 3 Months Insurance MEDICAID - [place] Care Teams Loom Starter Relationship Specialty Start Date End Date Ana Luisa Bourne RN [address] [address] PCP - General 04/23/23
== END 2024-06-02 13:58 | disposition home or self-care (01) ==
LOC: HO.HGI 13:16
PROVIDERS: Visit Provider Nurse Practitioner Family
DX: K59.04 Chronic idiopathic constipation (principal); K58.1 Irritable bowel syndrome with constipation; R14.0 Abdominal distension (gaseous); M62.08 Separation of muscle (nontraumatic), other site
CPT/HCPCS: 99214

== ENCOUNTER 2024-07-21 12:25 | Outpatient (REF) | payer MEDICAID, SELFPAY ==
--- OUTSIDE RECORDS SUMMARY | 2024-07-21 12:53 | XMS_ITS | Encounter Summary ---
Author Organization [email or web address] Address [address] [place] [address] Care Team Providers Care Electrical And Instrument Mechanic Name Role Phone Ana Luisa Bourne GIUSEPPE Primary Care Provider [phone] Geeta Zeng PharmD Unavailable [phone] Reason for Visit * Reason Comments Med Refill Encounter Details Date Type Department Care Team ([facility] Contact Info) Description 12/31/2023 Refill [facility] MEDICINE [address] [place], [place] [phone] Keith Hernandez MD 230 [place], [place] [phone] Alcohol use disorder, severe, dependence (CMS/HCC) Social History Tobacco Use Types Packs/Day Years Used Date Smoking Tobacco: Every Day Cigarettes Passive Smoke Exposure: Current Smokeless Tobacco: Never Alcohol Use Standard Drinks/Week Comments Never 0 (1 standard drink = 0.6 oz pur e alcohol) Alcohol Answer Date Recorded How often do you have a drink containing alcohol ? 1 07/10/2023 How many drinks containing a lcohol do you have on a typical day when you are drinking? 2 07/10/2023 How often do you have six or more drinks on one occasion? 2 07/10/2023 Depression Answer Date Recorded Patient Health Questionnaire-9 Score 9 12/18/2023 Patient Health Questionnaire-9 Score 9 12/18/2023 Last PHQ-9: Questionnaire Data Not on file 1 Housing Stability Answer Date Recorded What is your housing situation today? I have andres brown 09/17/[address] you li ve. Do you have problems with any of the following? None of the above 09/17/2023 Food Insecurity Answer Date Recorded Within the past 12 months, y ou worried that your food would run out before you got money to buy more: Never True 09/17/2023 Within the past 12 months,th e food you bought just didn't last and you didn't have enough money to get more: Never True 12/2023 Transportation Answer Date Recorded In the past 12 months, has l ack of transportation kept you from medical appts, meetings, work or from getting things needed for daily living? No 09/17/2023 Utilities Answer Date Recorded In the past 12 months, has t he electric, gas, oil or water company threatened to shut off services in your home? No 09/17/2023 Depression Answer Date Recorded Patient Health Questionnaire-2 Score 1 12/18/2023 Internet Access Answer Date Recorded Internet Access Q1 Yes 11/07/2023 Internet Access Q2 Not on file 11/07/2023 Comments Unknown Sex and Gender Information Value Date Recorded Sex Assigned at Female 01/07/2022 10:35 AM EDT Legal Sex Female 10:35 AM EDT Gender Identity Female 01/07/2022 10:35 AM EDT Sexual Orientation Don't know 01/07/2022 10 :35 AM EDT documented as of this encounter Plan of Treatment Not on file documented as of this encounter Goals Goal Patient Goal Type Associated Problems Recent Progress Patient-Stated? Author Hemoglobin A1c < 7 Result Component 9.5(12/29/2023 10:33 AM EDT) No Piers-Nicholasl edis, Geeta, PharmD Quit using tobacco (cigarettes, smokeless, etc) Tobacco Use No Piers-Gambl e, Geeta, PharmD documented as of this encounter Visit Diagnoses Diagnosis Alcohol use disorder, severe, dependence (CMS/HCC) documented in this encounter Additional Health Concerns Assessment Noted Time PHQ-9 Depression Total Score: 9 12/18/19 24 1:33 PM EDT documented as of this encounter Care Teams Electrical And Instrument Mechanic Relationship Specialty Start Date End Date Ana Luisa Bourne FNP [address] [place] [address] PCP - General Family Medicine 11/01/21 Geeta Zeng, PharmD 230 [place] [address] Pharmacist Internal Medicine 07/07/23 [facility] 02/17/24 documented as of this encounter
--- OUTSIDE RECORDS SUMMARY | 2024-07-21 12:54 | XMS_ITS | Encounter Summary ---
Author Organization [employer] Address [address] [place] [address] Care Team Providers Care Investigative Analyst Name Role Phone Ana Luisa Bourne GIUSEPPE Primary Care Provider [phone] Geeta Zeng PharmD Unavailable [phone] Encounter Details Date Type Department Care Team (Latest Contact Info) Description 07/16/2024 Travel Social History Tobacco Use Types Packs/Day Years [...] Answer Date Recorded Patient Health Questionnaire-9 Score 13 06/17/2024 Patient Health Questionnaire-9 Score 13 06/17/2024 Last PHQ-9: Questionnaire Data Not on file 0 06/17/2024 Housing Stability Answer Date Recorded What is [...] Answer Date Recorded Patient Health Questionnaire-2 Score 3 06/17/2024 Internet Access Answer Date Recorded Internet Access [...] Result Component 9.5(12/29/2023 10:33 AM EDT) No Geeta Mojica, PharmD Quit using tobacco (cigarettes, smokeless, etc) Tobacco Use No Geeta Mojica, PharmD documented as of this encounter Visit Diagnoses Not on filedocumented in this encounter Additional Health Concerns Assessment Noted Time PHQ-9 Depression Total Score: 13 025 12:06 PM EDT documented as of this encounter Care Teams Investigative Analyst Relationship Specialty Start Date End Date Ana Luisa Bourne FNP 230 [place] [address] PCP - General Family Medicine 11/01/21 Geeta Zeng, PharmD 230 [place] [address] Pharmacist Internal Medicine 07/07/23 [facility] 02/17/24 documented as of this encounter
--- OUTSIDE RECORDS SUMMARY | 2024-07-21 12:54 | XMS_ITS | Clinical Summary ---
Author Organization [address] [facility] Address [address] [place] [address] Phone Care Team Providers Care Cafe Team Member Name Role Phone Ana Luisa Bourne RN [...] cream Apply topically 2 times daily. Active Social History Tobacco Use Types Packs/Day Years [...] Care Team (Late st Contact Info) Description 08/25/2024 2:30 PM EDT Office Visit [facility] - [facility] [address] [phone] Teodoro Palomino, ROXANN [address] [address] Health Maintenance Due Date Last Done Comments [...] 04/13/2024 Hypertension/CHF/CAD Annual BMP Blood Test 04/13/2024 COVID-19 Vaccine (4 - Pfizer risk ) 05/26/2024 11/27/2023, 12/23/2022, 03/22/2022 Diabetes: Blood Sugar Control Test (HGBA1C) 06/28/2024 12/29/2023 Depression Screening 12/17/2024 12/18/2023 DTaP,Tdap,and Td Vaccines (3 - Td or Tdap) 05/28/2028 05/28/2018, 07/06/2008 Cholesterol Screening (Lipid Panel) 07/29/2028 07/30/2023 Hepatitis A Vaccines Completed 05/17/2021, 10/15/19 Hepatitis B Vaccines Completed 05/17/2021, 10/14/2018, 06/18/2018 Pneumococcal Vaccine: 50+ Years Completed 04/18/2023, 05/28/2018, 11/29/2015, Additional history exists Pneumococcal Vaccine: Pediatrics (0 to 5 Years) and At-Risk Patients (6 to 64 Years) Completed 04/18/2023, 05/28/2018, 11/29/2015, Additional history exists Influenza Vaccine Completed 11/17/2023, , 03/22/2022, Additional history exists HIB Vaccines Aged Out No longer eligi [...] age to complete this topic Meningococcal B Vaccine Aged Out No l onger eligible based on patient's age to complete this topic RSV Immunization Patients Under 20 months Aged Out No longer eligible based on patient's age to complete this topic Varicella Vaccines Aged Out No longer eligible based on patient's age to complete this topic Insurance MEDICAID - [place] Care Teams Cafe Team Member Relationship Specialty Start Date End Date Ana Luisa Bourne RN [address] [address] PCP - General 04/23/23
--- OUTSIDE RECORDS SUMMARY | 2024-07-21 12:54 | XMS_ITS | Encounter Summary ---
Author Organization [employer] Address [address] 7[address] [place] [address] Care Team Providers Care Interpretative Dancer Name Role Phone Ana Luisa Bourne Primary Care Provider [phone] Geeta Zeng PharmD Unavailable [phone] Reason for Visit * Reason Onset Date Comments Order(s) 10/20/2023 Encounter Details Date Type Department Care Team ([facility] Contact Info) Description 10/20/2023 Telephone [facility] MEDICINE [address] [place] [address] Ana Luisa Bourne FNP [address] [place] [address] Order(s) Social History Tobacco Use Types Packs/Day Years [...] Answer Date Recorded Patient Health Questionnaire-9 Score 5 09/25/2023 Patient Health Questionnaire-9 Score 5 09/25/2023 Last PHQ-9: Questionnaire Data Not on file 0 09/25/2023 Housing Stability Answer Date Recorded What is [...] the past 12 months, has t he [employer], gas, oil or water company threatened to shut off services in your home? No 09/17/2023 Depression Answer Date Recorded Patient Health Questionnaire-2 Score 1 09/25/2023 Comments Unknown Sex and Gender Information Value Date Recorded Sex Assigned at Female 01/07/2022 10:35 AM EDT Legal Sex Female 10:35 AM EDT Gender Identity Female 01/07/2022 10:35 AM EDT Sexual Orientation Don't know 01/07/2022 10 :35 AM EDT documented as of this encounter Miscellaneous Notes * Telephone Encounter - Gladys Garduno RN - 10/22/2023 4:26 PM EDT Pt would need to see provider first for LDCT scan can be ordered. Pt has upcoming PE with PCP and can discuss then. * Telephone Encounter - Jimmy Olivas - 10/20/2023 4:02 PM EDT Tc from Sun with [facility] stating since pt is a smoker she is requesting her to have a CT scan before upcoming PE. If any questions you can contact Sun at [phone]. documented in this encounter Plan of Treatment Not on file documented as of this encounter Goals Goal Patient Goal Type Associated Problems Recent Progress Patient-Stated? Author Hemoglobin A1c < 7 Result Component 9.5(12/29/2023 10:33 AM EDT) No Piers-Gambl e, Geeta, PharmD Quit using tobacco (cigarettes, smokeless, etc) Tobacco Use No Piers-Gambl e, Geeta, PharmD documented as of this encounter Visit Diagnoses Not on filedocumented in this encounter Additional Health Concerns Assessment Noted Time PHQ-9 Depression Total Score: 5 09/25/19 24 2:47 PM EDT documented as of this encounter Care Teams Interpretative Dancer Relationship Specialty Start Date End Date Ana Luisa Bourne FNP [address] [place] [address] PCP - General Family Medicine 11/01/21 Geeta Zeng, PharmD 230 [place] [address] Pharmacist Internal Medicine 07/07/23 [facility] 02/17/24 documented as of this encounter
--- OUTSIDE RECORDS SUMMARY | 2024-07-21 12:54 | XMS_ITS | Encounter Summary ---
Author Organization [employer] Address [address] [facility] 7t [place] [address] Care Team Providers Care Loading Unit Operator Seating Name Role Phone Ana Luisa Bourne Primary Care Provider [phone] Geeta Zeng PharmD Unavailable [phone] Reason for Visit * Reason Comments Med Refill Encounter Details Date Type Department Care Team ([facility] st Contact Info) Description 11/08/2022 Refill [facility] WALK[facility] C[facility] [address] [place], [place] [phone] Racquel Layne FNP [address] [place] [address] Left otitis media with effusion Social History Tobacco Use Types Packs/Day Years Used Date Smoking Tobacco: Every Day Cigarettes Passive Smoke Exposure: Current Smokeless Tobacco: Never Alcohol Use Standard Drinks/Week Comments Never 0 (1 standard drink = 0.6 oz pur e alcohol) Depression Answer Date Recorded Patient Health Questionnaire-9 Score 0 03/22/2022 Depression Answer Date Recorded Patient Health Questionnaire-2 Score 0 03/22/2022 Comments Unknown Sex and Gender Information Value Date Recorded Sex Assigned at Female 01/07/2022 10:35 AM EDT Legal Sex Female 10:35 AM EDT Gender Identity Female 01/07/2022 10:35 AM EDT Sexual Orientation Don't know 01/07/2022 10 :35 AM EDT documented as of this encounter Plan of Treatment Not on file documented as of this encounter Visit Diagnoses Diagnosis Left otitis media with effusion Nonsuppurative otitis media, not specified as acute or chronic documented in this encounter Additional Health Concerns Assessment Noted Time PHQ-9 Depression Total Score: 0 03/22/19 23 2:05 PM EST documented as of this encounter Care Teams Loading Unit Operator Seating Relationship Specialty Start Date End Date Ana Luisa Bourne FNP 230 [place] [address] PCP - General Family Medicine 11/01/21 Geeta Zeng, Santosh 230 [place] [address] Pharmacist Internal Medicine 07/07/23 [facility] 02/17/24 documented as of this encounter
--- OUTSIDE RECORDS SUMMARY | 2024-07-21 12:54 | XMS_ITS | Encounter Summary ---
Author Organization [employer] Address [address] [facility] 7t [place] [address] Care Team Providers Care Bearingizer Name Role Phone Ana Luisa Bourne Primary Care Provider [phone] Geeta Zeng PharmD Unavailable [phone]- [phone] Reason for Visit * Reason Onset Date Comments Nurse Triage 02/27/2023 Encounter Details Date Type Department Care Team ([facility] Contact Info) Description 02/27/2023 Telephone [facility] CHC MED & PEDS [address] [place], [place] [phone] Ana Luisa Bourne FNP [address] [place], [place] [phone] Nurse Triage Social History Tobacco Use Types Packs/Day Years Used Date Smoking Tobacco: Every Day Cigarettes Passive Smoke Exposure: Current Smokeless Tobacco: Never Alcohol Use Standard Drinks/Week Comments Never 0 (1 standard drink = 0.6 oz pur e alcohol) Depression Answer Date Recorded Patient Health Questionnaire-9 Score 0 03/22/2022 Housing Stability Answer Date Recorded What is your housing situation today? I have andres brown 12/23/[address] you li ve. Do you have problems with any of the following? None of the above 12/23/2022 Food Insecurity Answer Date Recorded Within the past 12 months, y ou worried that your food would run out before you got money to buy more: Never True 12/23/2022 Within the past 12 months,th e food you bought just didn't last and you didn't have enough money to get more: Never True Transportation Answer Date Recorded In the past 12 months, has l ack of transportation kept you from medical appts, meetings, work or from getting things needed for daily living? No 12/23/2022 Utilities Answer Date Recorded In the past 12 months, has t he electric, gas, oil or water company threatened to shut off services in your home? No 12/23/2022 Depression Answer Date Recorded Patient Health Questionnaire-2 Score 0 03/22/2022 Comments Unknown Sex and Gender Information Value Date Recorded Sex Assigned at Female 01/07/2022 10:35 AM EDT Legal Sex Female 10:35 AM EDT Gender Identity Female 01/07/2022 10:35 AM EDT Sexual Orientation Don't know 01/07/2022 10 :35 AM EDT documented as of this encounter Miscellaneous Notes * Telephone Encounter - Janelle Ovi - 02/27/2023 10:10 AM EST Symptom: Skin Lump Outcome: Schedule an appointment to be seen within 3 days Reason: states there is discharge coming from lump, located on head The caller accepted this outcome Please contact pt at [phone] (petroleum production engineer needed) documented in this encounter Plan of Treatment Not on file documented as of this encounter Visit Diagnoses Not on filedocumented in this encounter Additional Health Concerns Assessment Noted Time PHQ-9 Depression Total Score: 0 03/22/19 23 2:05 PM EST documented as of this encounter Care Teams Bearingizer Relationship Specialty Start Date End Date Ana Luisa Bourne FNP 230 [place] [address] PCP - General Family Medicine 11/01/21 Geeta Zeng PharmD 230 [place] [address] Pharmacist Internal Medicine 07/07/23 [facility] 02/17/24 documented as of this encounter
--- OUTSIDE RECORDS SUMMARY | 2024-07-21 12:54 | XMS_ITS | Encounter Summary ---
Author Organization [employer] Address [address] [facility] 7t [place] [address] Care Team Providers Care Hob Machine Operator Name Role Phone Ana Luisa Bourne Primary Care Provider [phone] Geeta Zeng PharmD Unavailable [phone] Reason for Visit * Reason Onset Date Comments Results 03/07/2023 Encounter Details Date Type Department Care Team ([facility] Contact Info) Description 03/07/[address] [facility] CHC MED & PEDS 505 [place], [place] [phone] Ana Luisa Bourne FNP [address] [place], [place] [phone] Results Social History Tobacco Use Types Packs/Day Years [...] encounter Miscellaneous Notes * Telephone Encounter - Susannah Vega RN - 03/11/2023 4:23 PM EST TC from pt requesting call back regarding Results. Type of results: CT head Date when done: 02/05 Please contact pt at [phone] TC placed to patient regarding above message at all numbers. Preferred number above had full VM boxso no message could be left. Message left at main number to try us back. Interpretation of results below from Angélica Bourne. Routing back to [facility] nurses to try again. Please call [place] to review CT Results: -Reassuring results - Brain structure appeared normal on the CT. No sign of hemorrhage or lesion. -On left scalp, did see a thickening of the skin and a layer of subcutaneous fat. 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 Encourage to followwith Derm PRN. Please let me know if they have any questions or concerns. Thank you! * Telephone Encounter - Janelle Dior - 03/07/2023 1:39 PM EST TC from pt requesting call back regarding Results. Type of results: CT head Date when done: 02/05 Please contact pt at [phone] documented in this encounter Plan of Treatment Not on file documented as of this encounter Visit Diagnoses Not on filedocumented in this encounter Additional Health Concerns Assessment Noted Time PHQ-9 Depression Total Score: 0 03/22/19 23 2:05 PM EST documented as of this encounter Care Teams Hob Machine Operator Relationship Specialty Start Date End Date Ana Luisa Bourne FNP 230 [place] [address] PCP - General Family Medicine 11/01/21 Geeta Zeng PharmD 230 [place] [address] Pharmacist Internal Medicine 07/07/23 [facility] 02/17/24 documented as of this encounter
--- OUTSIDE RECORDS SUMMARY | 2024-07-21 12:54 | XMS_ITS | Encounter Summary ---
Author Organization [employer] Address [address] [place] [address] Care Team Providers Care Dyeing Machine Feeder Name Role Phone Ana Luisa Bourne Primary Care Provider [phone] Geeta Zeng PharmD Unavailable [phone] Reason for Visit * Reason Comments Med Refill Encounter Details Date Type Department Care Team ([facility] st Contact Info) Description 07/08/2024 Refill [facility] WALK-IN CENTER [address] [place] [address] Ana Luisa Bourne FNP [address] [place], [place] [phone] Other hyperlipidemia Social History Tobacco Use Types Packs/Day Years [...] tobacco (cigarettes, smokeless, etc) Tobacco Use No Sarah-Geeta Giraldo, PharmD documented as of this encounter Visit Diagnoses Diagnosis Other hyperlipidemia documented in this encounter Additional Health Concerns Assessment Noted Time PHQ-9 Depression Total Score: 13 025 12:06 PM EDT documented as of this encounter Care Teams Dyeing Machine Feeder Relationship Specialty Start Date End Date Ana Luisa Bourne FNP 230 [place] [address] PCP - General Family Medicine 11/01/21 Geeta Zeng, PharmD 230 [place] [address] Pharmacist Internal Medicine 07/07/23 [facility] 02/17/24 documented as of this encounter
--- OUTSIDE RECORDS SUMMARY | 2024-07-21 12:54 | XMS_ITS | Encounter Summary ---
Author Organization [employer] Address [address] [place] [address] Care Team Providers Care Cabin Supervisor Name Role Phone Ana Luisa Bourne GIUSEPPE Primary Care Provider [phone] Geeta Zeng PharmD Unavailable [phone] Reason for Visit * Reason Comments Med Refill Encounter Details Date Type Department Care Team ([facility] Contact Info) Description 07/07/2024 Refill [facility] CHC MED & PEDS 505 [place], [place] [phone] Cleo Malone MD 505 [place], [place] [phone] Primary hypertension Social History Tobacco Use Types Packs/Day Years [...] as of this encounter Visit Diagnoses Diagnosis Primary hypertension Unspecified essential hypertension documented in this encounter Additional Health Concerns Assessment Noted Time PHQ-9 Depression Total Score: 13 025 12:06 PM EDT documented as of this encounter Care Teams Cabin Supervisor Relationship Specialty Start Date End Date Ana Luisa Bourne FNP [address] [place] [address] PCP - General Family Medicine 11/01/21 Geeta Zeng, PharmD 230 [place] [address] Pharmacist Internal Medicine 07/07/23 [facility] 02/17/24 documented as of this encounter
--- OUTSIDE RECORDS SUMMARY | 2024-07-21 12:54 | XMS_ITS | Encounter Summary ---
Author Organization [employer] Address [address] [facility] 7t [place] [address] Care Team Providers Care Weight Yardage Checker Name Role Phone Ana Luisa Bourne Primary Care Provider [phone] Geeta Zeng PharmD Unavailable [phone] Reason for Visit * Reason Comments Med Refill Encounter Details Date Type Department Care Team ([facility] st Contact Info) Description 11/06/2022 Refill [facility] [address] [place], [place] [phone] Racquel Layne FNP [address] [place] [address] Left otitis media with effusion Social History [...] documented as of this encounter Care Teams Weight Yardage Checker Relationship Specialty Start Date End Date Ana Luisa Bourne FNP 230 [place] [address] PCP - General Family Medicine 11/01/21 Geeta Zeng, Santosh [address] [place] [address] Pharmacist Internal Medicine 07/07/[address] [facility] 02/17/24 documented as of this encounter
--- OUTSIDE RECORDS SUMMARY | 2024-07-21 12:54 | XMS_ITS | Encounter Summary ---
Author Organization [employer] Address [address] [place] [address] Care Team Providers Care District Extension Service Agent Name Role Phone Ana Luisa Bourne Primary Care Provider [phone] Geeta Zeng PharmD Unavailable [phone] Encounter Details Date Type Department Care Team (Late st Contact Info) Description 06/19/2022 Telephone [facility] MEDICINE [address] [place] [address] Ana Luisa Bourne FNP [address] [place] [address] Social History Tobacco Use Types Packs/Day Years [...] Don't know 01/07/2022 10 :35 AM EDT COVID-19 Exposure Response Date Recorded In the last 10 days, have yo u been in contact with someone who was confirmed or suspected to have Coronavirus/COVID-19? No / Unsure 05/31/2022 9:19 AM EDT documented as of this encounter Plan of Treatment Not on file documented as of this encounter Visit Diagnoses Not on filedocumented in this encounter Additional Health Concerns Assessment Noted Time PHQ-9 Depression Total Score: 0 03/22/19 23 2:05 PM EST documented as of this encounter Care Teams District Extension Service Agent Relationship Specialty Start Date End Date Ana Luisa Bourne FNP [address] [place] [address] PCP - General Family Medicine 11/01/21 Geeta Zeng PharmD 230 [place] [address] Pharmacist Internal Medicine 07/07/23 [facility] 02/17/24 documented as of this encounter
--- OUTSIDE RECORDS SUMMARY | 2024-07-21 12:54 | XMS_ITS | Encounter Summary ---
Author Organization [employer] Address [address] [facility] [address] [place] [address] Care Team Providers Care Senior Oracle Database Administrator Name Role Phone Ana Luisa Bourne Primary Care Provider [phone] Geeta Zeng PharmD Unavailable [phone] Reason for Visit * Reason Comments Med Refill Encounter Details Date Type Department Care Team ([facility] st Contact Info) Description 05/17/2022 Refill [facility] MEDICINE [address] [place] [address] Ana Luisa Bourne FNP [address] [place] [address] Social History Tobacco Use Types Packs/Day Years Used Date Smoking Tobacco: Every Day Cigarettes Passive Smoke Exposure: Current Smokeless Tobacco: Never Depression Answer Date Recorded Patient Health Questionnaire-9 [...] suspected to have Coronavirus/COVID-19? No / Unsure 04/25/2022 2:59 PM EST documented as of this encounter Plan of Treatment Not on file documented as of this encounter Visit Diagnoses Not on filedocumented in this encounter Additional Health Concerns Assessment Noted Time PHQ-9 Depression Total Score: 0 03/22/19 2:05 PM EST documented as of this encounter Care Teams Senior Oracle Database Administrator Relationship Specialty Start Date End Date Ana Luisa Bourne FNP [address] [place] [address] PCP - General Family Medicine 11/01/21 Geeta Zeng, DaphneD [address] [place] [address] Pharmacist Internal Medicine 07/07/23 [facility] 02/17/24 documented as of this encounter
--- OUTSIDE RECORDS SUMMARY | 2024-07-21 12:54 | XMS_ITS | Encounter Summary ---
Author Organization [employer] Address [address] [facility] [address] [facility] [address] [place] [address] Care Team Providers Care Eight Arm Operator Name Role Phone Ana Luisa Bourne Primary Care Provider [phone] Geeta Zeng PharmD Unavailable [phone] Reason for Visit * Reason Onset Date Comments Med Refill 01/09/2023 Encounter Details Date Type Department Care Team (Late st Contact Info) Description 01/09/2023 Refill [facility] MEDICINE [address] [place] [address] Ana Luisa Bourne FNP [address] [place] [address] Type 2 diabetes mellitus without complication, with long-term current use of insulin ([facility]) Social History Tobacco Use Types Packs/Day Years [...] encounter Miscellaneous Notes * Telephone Encounter - GIUSEPPE Clark - 01/09/2023 4:57 PM EDT Kg Foreman - please call pt/caregiver to inform them about the following info regarding med refill requests: The Farxiga rx I have been sending is 5mg daily, so that is the dose that I refilled. Please ask ifhe can confirm prescriber name for the 10mg dose. Oxcarbazepine is not managed by our office - it is prescribed by psych: VILMA GROSS Tamoxifen is also not managed by our office - it is prescribed by Heme/Onc: Dr. Quintero. Please advise caregiver to contact respective specialty offices for med refills. Thanks! * Telephone Encounter - Hernan Lazo - 01/09/2023 12:30 PM EDT Tc from Jason from [facility] requesting medication refill for OXcarbazepine (Trileptal) 600 MG tablet, tamoxifen (Nolvadex) 20 MG chemo tablet, dapagliflozin (Farxiga) 5 MG. 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 Please call [phone] documented in this encounter Plan of Treatment Not on file documented as of this encounter Visit Diagnoses Diagnosis Type 2 diabetes mellitus without complication, with long-term current use of insulin (CMS/HCC) documented in this encounter Additional Health Concerns Assessment Noted Time PHQ-9 Depression Total Score: 0 03/22/19 23 2:05 PM EST documented as of this encounter Care Teams Eight Arm Operator Relationship Specialty Start Date End Date Ana Luisa Bourne FNP [address] [place] [address] PCP - General Family Medicine 11/01/21 Geeta Zeng, Santosh [address] [place] [address] Pharmacist Internal Medicine 07/07/23 [facility] 02/17/24 documented as of this encounter
--- OUTSIDE RECORDS SUMMARY | 2024-07-21 12:54 | XMS_ITS | Encounter Summary ---
Author Organization [employer] Address [address] [place] [address] Care Team Providers Care Precision Filer Hand Name Role Phone Ana Luisa Bourne Primary Care Provider [phone] Geeta Zeng PharmD Unavailable [phone] Encounter Details Date Type Department Care Team (Late st Contact Info) Description 09/15/2023 Telephone [facility] MEDICINE [address] [place] [address] Ana Luisa Bourne FNP [address] [place], [place] [id number] Social History Tobacco Use Types Packs/Day Years [...] Answer Date Recorded Patient Health Questionnaire-9 Score 6 07/18/2023 Patient Health Questionnaire-9 Score 6 07/18/2023 Last PHQ-9: Questionnaire Data Not on file 0 07/18/2023 Housing Stability Answer Date Recorded What is [...] Date Recorded Patient Health Questionnaire-2 Score 1 07/18/2023 Comments Unknown Sex and Gender Information Value [...] Result Component 9.5(12/29/2023 10:33 AM EDT) No Eduardos-Gambl e, Geeta, PharmD Quit using tobacco (cigarettes, smokeless, etc) Tobacco Use No Piers-Gambl e, Geeta, PharmD documented as of this encounter Visit Diagnoses Not on filedocumented in this encounter Additional Health Concerns Assessment Noted Time PHQ-9 Depression Total Score: 6 07/18/19 24 9:05 AM EDT documented as of this encounter Care Teams Precision Filer Hand Relationship Specialty Start Date End Date Ana Luisa Bourne FNP [address] [place] [address] PCP - General Family Medicine 11/01/21 EduardosGeeta Griffin, PharmD [address] [place] [address] Pharmacist Internal Medicine 07/07/[address] [facility] 02/17/24 documented as of this encounter
--- OUTSIDE RECORDS SUMMARY | 2024-07-21 12:54 | XMS_ITS | Encounter Summary ---
Author Organization [employer] Address [address] [facility] [address] [place] [address] Care Team Providers Care Route Sales Delivery Driver Name Role Phone Ana Luisa Bourne GIUSEPPE Primary Care Provider [phone] Geeta Zeng PharmD Unavailable [phone] Encounter Details Date Type Department Care Team (Late st Contact Info) Description 02/03/2024 Orders Only [facility] MEDICINE [address] [place], [place] [phone] Provider, MD William Social History Tobacco Use Types Packs/Day Years [...] Geeta, PharmD documented as of this encounter Procedures Procedure Name Priority Date/Time Associated Diagnosis Comments CBC WITH AUTO DIFFERENTIAL Routine 06/02/2024 2:31 PM EDT COMPREHENSIVE METABOLIC PANEL Routine 06/02/2024 2:31 PM EDT HM COLONOSCOPY Routine 01/16/2024 2:15 PM EST documented in this encounter Results * (ABNORMAL) Comprehensive Metabolic Panel (06/02/2024 2:31 PM EDT) Sodium 144 135 - 145 mmol/L [facility] Potassium 3.6 3.3 - 5.1 mmol/L [facility] Chloride 108 96 - 108 mmol/L [facility] Carbon Dioxide 29 22 - 29 mmol/L [facility] Anion Gap 11(L) 12 - 20 [facility] Urea Nitrogen (BUN) 4(L) 9 - 16 mg/dL [facility] Creatinine, Serum 0.66 0.5 - 1.4 mg/dL [facility] Estimated Glomerular Filt Rate >60 [facility] Comment:Chronic Kidney Disea se: Estimated GFR < 60 mL/min/[id number] Kidney Disease: Estimated GFR < 15 mL/min/1.73m2 Glucose 188(H) 60 - 115 mg/dL [facility] Calcium 9.4 8.4 - 10.2 mg/dL [facility] Bilirubin, Total 0.3 0.0 - 1.0 mg/dL [facility] Aspartate Amino Transferase 20 5 - 31 U/L [facility] Alanine Aminotransferase 18 0 - 31 U/L [facility] Total Protein 7.2 6.5 - 8.0 g/dL [facility] Albumin Level 3.8 3.5 - 5.0 g/dL [facility] Alkaline Phosphatase 84 39 - 117 U/L [facility] 06/02/2024 2:31 PM EDT 06/02/2024 2:31 PM EDT us Generic External Data Provider LAB BLOOD ORDERAB LES Final Result [facility] [address] [place] [phone] * CBC auto differential (06/02/2024 2:31 PM EDT) White Blood Count 9.0 4.8 - 10.8 X10*3/uL [facility] Red Blood Count 5.24 4.20 - 5.50 X10*6/uL [facility] Hemoglobin 14.3 12.0 - 16.0 g/dl [facility] Hematocrit 46.1 37.0 - 47.0 % [facility] Mean Corpuscular Volume 88.0 80.0 - 98.0 fL [facility] Mean Corpuscular Hemoglobin 27.3 27.0 - 33.0 pg [facility] Mean Corpuscular HGB Conc 31.0 31.0 - 35.0 g/dl [facility] Red Cell Distribution Width 13.7 11.0 - 16.0 % [facility] Platelet Count 286 160 - 400 X10*3/uL [facility] Mean Platelet Volume 10.2 9.4 - 12.3 fL [facility] Neutrophils Percent Auto 67.0 45 - 73 % [facility] Imm Gran Pct Auto 0.3 0.0 - 0.4 % [facility] Lymphocytes Percent Auto 24.3 20 - 40 % [facility] Monocytes Percent Auto 6.5 2 - 11 % [facility] Eosinophils Percent Auto 1.0 0 - 4 % [facility] Basophils Percent Auto 0.9 0 - 2 % [facility] NRBC Pct Auto 0.0 0.0 - 0.2 /100WBC [facility] Neutrophils Absolute Auto 6.0 2.0 - 8.3 x10*3/uL [facility] Imm Gran Abs Auto 0.03 0.00 - 0.03 X10*3/uL [facility] Lymphocytes Absolute Auto 2.2 1.2 - 4.9 X10*3/uL [facility] Monocytes Absolute Auto 0.6 0.1 - 1.2 X10*3/uL [facility] Eosinophils Absolute Auto 0.1 0.0 - 0.4 X10*3/uL [facility] Basophils Absolute Auto 0.1 0.0 - 0.2 X10*3/uL [facility] NRBC Abs Auto 0.000 0.0 - 0.012 X10*3/uL [facility] 06/02/2024 2:31 PM EDT 06/02/2024 2:31 PM EDT us Generic External Data Provider LAB BLOOD ORDERAB LES Final Result [facility] [address] [place] [address] [phone] * Hm Colonoscopy (01/16/2024 2:15 PM EST) us Historical Provider HEALTH MAINTENANCE Final Result documented in this encounter Visit Diagnoses Not on filedocumented in this encounter Additional Health Concerns Assessment Noted Time PHQ-9 Depression Total Score: 9 12/18/19 24 1:33 PM EDT documented as of this encounter Care Teams Route Sales Delivery Driver Relationship Specialty Start Date End Date Ana Luisa Bourne FNP [address] [place] [address] PCP - General Family Medicine 11/01/21 Geeta Zeng PharmD [address] [place] [address] Pharmacist Internal Medicine 07/07/23 [facility] 02/17/24 documented as of this encounter
--- OUTSIDE RECORDS SUMMARY | 2024-07-21 12:54 | XMS_ITS | Encounter Summary ---
Author Organization [employer] Address [address] [place] [address] Care Team Providers Care Office Sweeper Name Role Phone Ana Luisa Bourne Primary Care Provider [phone] Geeta Zeng PharmD Unavailable [phone] Reason for Visit * Reason Comments Med Change Request Encounter Details Date Type Department Care Team ([facility] st Contact Info) Description 09/18/2022 Refill [facility] MEDICINE [address] [place] [address] Ana Luisa Bourne FNP [address] [place] [address] Type 2 diabetes mellitus without complication, with long-term current use of insulin (CMS/HCC) Social History Tobacco Use Types Packs/Day [...] documented as of this encounter Care Teams Office Sweeper Relationship Specialty Start Date End Date Ana Luisa Bourne FNP [address] [place] [address] PCP - General Family Medicine 11/01/21 Geeta Zeng, Santosh [address] [place] [address] Pharmacist Internal Medicine 07/07/23 [facility] 02/17/24 documented as of this encounter
--- OUTSIDE RECORDS SUMMARY | 2024-07-21 12:54 | XMS_ITS | Clinical Summary ---
Author Organization [employer] Address [address] [place] [address] Care Team Providers Care Floor Molder Name Role Phone Ana Luisa Bourne GIUSEPPE Primary Care Provider [phone] Geeta Zeng PharmD Unavailable [phone] Allergies No known active allergies Medications * This document contains information received from the source organization and may not represent a complete record from that organization. docusate sodium (Colace) 100 MG capsule 1 capsule as needed Active ibuprofen 600 MG tablet TAKE 1 TABLET BY MOUTH EVERY 6 HOURS NEEDED FOR PAIN Active traZODone (Desyrel) 150 MG tablet Take 200 mg by mouth at bedtime. Dr. Gracia Active OXcarbazepine (Trileptal) 600 MG tablet Take by mouth at bedtime. Active QUEtiapine (SEROquel) 100 MG tablet Take 100 mg by mouth at bedtime. Active senna-docusate (Senokot S) 8.6-50 MG tablet take 2 tablet by oral route every day as needed for constipation Active sertraline (Zoloft) 100 MG tablet Take 2 tablets by mouth at bed time. Active tamoxifen (Nolvadex) 20 MG chemo tablet Take 1 tablet by mouth at bed time. Active topiramate (Topamax) 25 MG tablet Take 1 tablet by mouth every 12 (twelve) hours. Active paliperidone (Invega) 6 MG 24 hr tablet take 2 tablets (12 mg) by oral route every day in the morning Active fluticasone (Flonase) 50 MCG/ACT nasal sprayIndications: Left otitis media with effusion Administer 1-2 sprays into each nostril in the morning. Shake gently. Before first use, prime pump. After use, clean tip and replace cap. 16 g 2 023 Active Additional Information Patient not taking.Reported on 07/07/2023 Continuous Blood Gluc Transition Program Manager (FreeStyle Jaylan 2 [place]) deviceIndications :Type 2 diabetes mellitus without complication, with long-term current use of insulin ([facility]) Scan sensor every 8 hours 1 each Active Additional Information Patient not taking.Reported on 07/07/2023 FreeStyle lancets 1 each by Other route 2 times daily. USE TO TEST BLOOD SUGAR TWICE DAILY 100 each 11 Active Additional Information Patient not taking.Reported on 07/07/2023 Lidocaine-Menthol 4-1 % creamIndications: Chest wall pain,Acute pain of left shoulder Apply 2 g topically 3 times daily. 120 g 024 Active nicotine polacrilex (Nicorette) 2 MG gumIndications:To bacco use Chew 1 each (2 mg) every 4 (four) hours if needed for smoking cessation. 100 each 3 Active nicotine (Nicoderm CQ) 21 MG/24HR patchIndications: Tobacco use Apply 1 patch on the skin (one) time each day at the same time x 6 weeks. 42 patch 024 Active nicotine (Nicoderm CQ) 14 MG/24HR patchIndications: Tobacco use After completion of 21mg/day patch: Apply 1 patch on the skin (one) time each day at the same time x 2 weeks. 14 patch 024 Active nicotine (Nicoderm CQ) 7 MG/24HR patchIndications: Tobacco use After completion of 14mg/day patch: Apply 1 patch on the skin (one) time each day at the same time x 2 weeks. 14 patch Active BD Pen Needle Padmini 2nd Gen 32G X 4 MM miscIndications:T ype 2 diabetes mellitus without complication, with long-term current use of insulin ([facility]) USE WITH HUMALOG KWIKPEN TWICE A DAY 100 each 11 Active triamcinolone (Kenalog) 0.1 % creamIndications: Xerosis of skin Apply topically Once per day. Mix with CeraVe cream as directed and apply after bathing or showering. 80 g 3 024 Active naltrexone (Depade) 50 MG tabletIndications :Alcohol use disorder, severe, dependence (CMS/HCC) Take 1 tablet (50 mg) by mouth Once per day. 90 tablet 3 024 2024 Active ketoconazole (NIZOral) 2 % shampooIndication s:Seborrheic dermatitis Apply topically 2 (two) times a week. 120 mL 2 Active atorvastatin (Lipitor) 80 MG tabletIndications :Other hyperlipidemia TAKE 1 TABLET BY MOUTH EVERYDAY AT BEDTIME 90 tablet 3 Active lisinopril 5 MG tabletIndications :Primary hypertension TAKE 1 TABLET BY MOUTH EVERY DAY 90 tablet 3 Active ipratropium-albut rudolph (Duo-Neb) 0.5-2.5 mg/3 mL nebulizer solutionIndicatio ns:Hx of wheezing inhale 3 milliliter by nebulization route 4 times every day as needed for shortness of breath 90 mL 2 Active insulin lispro protamine-insulin lispro (HumaLOG MIX 75/25 KWIKPEN) (75-25) 100 UNIT/ML injectionIndicati ons:Type 2 diabetes mellitus without complication, with long-term current use of insulin ([facility]) Inject 40 Units under the skin with breakfast and with evening meal. 3 mL 12 Active budesonide-formot rudolph (Symbicort) 80-4.5 MCG/ACT inhalerIndication s:Hx of wheezing Inhale 2 puffs in the morning and at bedtime. Rinse mouth with water after use to reduce aftertaste and incidence of candidiasis. Do not swallow. 1 each 024 2024 Active albuterol (Ventolin HFA) 108 (90 Base) MCG/ACT inhalerIndication s:Hx of wheezing Inhale 2 puffs Every 4-6 hours as needed for wheezing or shortness of breath. 18 g 11 Active OLANZapine (ZyPREXA) 5 MG tablet Take 1 tablet by mouth at bedtime. Active Alcohol Swabs (Alcohol Prep) 70 % pads USE TO TEST BLOOD SUGAR TWICE DAILY 100 each 11 Active ferrous sulfate 325 (65 Fe) MG tabletIndications :Other iron deficiency anemia TAKE 1 TABLET BY MOUTH EVERY OTHER DAY 45 tablet 025 Active metFORMIN (Glucophage) 1000 MG tabletIndications :Type 2 diabetes mellitus without complication, with long-term current use of insulin (CMS/HCC) TAKE 1 TABLET BY MOUTH TWICE DAILY WITH BREAKFAST AND DINNER 180 tablet 1 025 Active FREESTYLE LITE test strip USE DIRECTED TO TEST TWICE DAILY 50 each 10 025 Active dapagliflozin (Farxiga) 5 MGIndications:Typ e 2 diabetes mellitus without complication, with long-term current use of insulin (CMS/HCC) TAKE 1 TABLET BY MOUTH EVERY MORNING 90 tablet 3 025 Active Continuous Glucose Sensor (FreeStyle Jaylan 2 Sensor) miscIndications:T ype 2 diabetes mellitus without complication, with long-term current use of insulin (CMS/HCC) USE DIRECTED. CHANGE EVERY 14 DAYS 2 each 11 025 Active Continuous Blood Gluc Sensor (FreeStyle Jaylan 2 Sensor) miscIndications:T ype 2 diabetes mellitus without complication, with long-term current use of insulin ([facility]) Apply 1 sensor every 14 days 2 each 11 024 2024 Discontinued Active Problems Problem Noted Date Diagnosed Date Primary hypertension 12/30/2023 Overview (12/30/2023): Cont lisinopril 5mg daily BP readings well controlled Hx of wheezing 12/30/2023 Overview (12/30/2023): Referred for PFT Feb 2022 Hx of wheezing and SOB primarily with URI (+) hx tobacco use, encouraged smoking cessation efforts Assessment & Plan (12/30/2023 8:55 PM EDT): Continues with Symbicort and albuterol PRN Would benefit from further eval and discussion in subsequent appt. Refilled inhalers on PRN basis before trip. Anxiety 12/18/2023 Alcohol use disorder, mild, in early remission 0 07/22/2023 Cocaine use disorder 07/22/2023 Hx of syphilis 04/20/2023 Overview (04/20/2023): ?? Following with [facility] - Dr. Nichols ?? Consult plan July 2022: Repeat RPR Q6-12 months. Tx if titer > 1:16 Healthcare maintenance 12/29/2022 Overview (12/30/2023): Routine Cancer Screening Breast CA: history of left breast CA, followed by Heme/Onc. Mammo BIRADS 2 on 05/06/23. Cervical CA: HPV neg 06/05/21, followed by Estela Hung CNM Colon CA: Colonoscopy completed by Dr. Ledesma 02/21/2021. Apr 2021 - colon resection for cecal poylp, sessile serrated poylp w/o high-grade dysplasia or carcinoma. Recommended repeat colonoscopy due to large polyp found in cecum last year. Scheduled Jan 2024 with [facility]. Dental: referral to [facility] Dental Apr 2023 Last PE: 04/18/23 Assessment & Plan (04/20/2023 6:48 PM EST): Reviewed routine screening above with pt and Caitlin. 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 Reviewed med safety and SE. -Referred to [facility] for lung CA screening on 09/17/23 Assessment & Plan (04/20/2023 6:49 PM EST): - Encouraged smoking cessation resources such as pharmacomtherapy, [facility] smoking cessation group, and [facility] pharmacy smoking cessation clinic - Discuss further during follow up Assessment & Plan (03/25/2022 2:02 PM EST): -Continue with lozenges PRN -Follow up if interested in additional smoking cessation resources Gastroesophageal reflux disease 03/22/2022 Iron deficiency anemia 03/22/2022 Assessment & Plan (12/30/2023 8:57 PM EDT): -Previously followed by Heme/Onc with weekly iron infusions starting on 02/21/21 x 8 weeks -Continues on ferrous sulfate PO Assessment & Plan (04/20/2023 6:37 PM EST): -Previously followed by Heme/Onc with weekly iron infusions starting on 02/21/21 x 8 weeks -Continues on ferrous sulfate Assessment & Plan (03/25/2022 1:59 PM EST): -Previously followed by Heme/Onc with weekly iron infusions starting on 02/21/21 x 8 weeks -Reports missed last follow up with Heme/Onc and planning to reschedule -Continues on ferrous sulfate (discussed association with constipation) -Recheck iron studies and consider switching to ferrous gluconate if medication still indicated -Encouraged to follow up with specialist Type 2 diabetes mellitus 03/22/2022 Overview (12/30/2023): Lab Results Component Value Date HGBA1C 9.5 (A) 12/29/2023 HGBA1C 8.7 (A) 09/17/2023 HGBA1C 7.5 (A) 07/07/2023 HGBA1C 10.4 (A) 04/18/2023 HGBA1C 11.6 (H) 06/14/2020 -Continue humalog mix 75/25 40 units BID -Continue farxiga 5mg daily -Continue metformin 1000mg BID -CGM approval: May 2023 -Pt denies any polydipsia, polyphagia, polyuria. -Lifestyle interventions advised. Assessment & Plan (12/30/2023 8:23 PM EDT): -Discussed with pt elevation in A1c, has CGM in place. Reports majority of FBG readings in low 100s. PP are elevated, and reports eating a lot of high carb food/beverages. Currently drinking 2 high carb beverages per day (soda and/or juice). Goal to decrease to 1 per day for next appt. -Would prefer to focus on lifestyle and then consider med adjustments. -Consider discussion of decreasing insulin in future. Assessment & Plan (09/17/2023 4:37 PM EDT): Lab Results Component Value Date HGBA1C 7.5 (A) 07/07/2023 HGBA1C 10.4 (A) 04/18/2023 HGBA1C 7.6 (A) 11/01/2022 HGBA1C 7.5 (A) 03/22/2022 HGBA1C 11.6 (H) 06/14/2020 -No recent home readings for review. Reports adherence with medications, requesting switch from vial to pens. Replaced. -Continue humalog mix 75/25 40 units BID -Continue farxiga 5mg daily -Continue metformin 1000mg BID -Pt denies any polydipsia, polyphagia, polyuria. -Lifestyle interventions advised. Assessment & Plan (04/20/2023 6:42 PM EST): Lab Results Component Value Date HGBA1C 10.4 (A) 04/18/2023 HGBA1C 7.6 (A) 11/01/2022 HGBA1C 7.5 (A) 03/22/2022 HGBA1C 11.6 (H) 06/14/2020 -No recent home readings for review. Reports adherence with medications, but also unclear with changes in housing/living situation. -Initiate CGM, follow up with Mina Apodaca RN for diabetes visit and CGM teaching. Med changes after reviewing trends and determining med adherence. -Continue humalog mix 75/25 40 units BID -Continue farxiga 5mg daily -Continue metformin 1000mg BID -Pt denies any polydipsia, polyphagia, polyuria. -Lifestyle interventions advised. Assessment & Plan (12/29/2022 5:57 PM EDT): Lab Results Component Value Date HGBA1C 7.6 (A) 11/01/2022 HGBA1C 7.5 (A) 03/22/2022 HGBA1C 11.6 (H) 06/14/2020 -BG initially HHH, remained HHH s/p 10 units lispro. BG improved to 418 s/p 2nd admin of 10 units lispro. UA neg for ketones -Continue to check BG values 2x/day, once fasting and once two hours after eating heaviest meal of the day -Continue humalog mix 75/25 40 units BID -Continue farxiga 5mg daily -Continue metformin 1000mg BID -Pt denies any polydipsia, polyphagia, polyuria. -Lifestyle interventions advised. -Follow up in 3 months for chronic conditions, sooner as needed. Assessment & Plan (11/01/2022 3:02 PM EDT): - Lab Results Component Value Date HGBA1C 7.6 (A) 11/01/2022 HGBA1C 7.5 (A) 03/22/2022 HGBA1C 11.6 (H) 06/14/2020 - Lab Results Component Value Date MICROALBUR 0.4 06/14/2020 CREATININE 0.74 10/21/2022 - Continue lifestyle modifications - Continue current medications F/u with PCP Assessment & Plan (03/25/2022 1:49 PM EST): Lab Results Component Value Date HGBA1C 7.5 (A) 03/22/2022 -Continue to check BG values 2x/day, once fasting and once two hours after eating heaviest meal of the day -Continue humalog mix 75/25 40 units BID -Continue farxiga 5mg daily -Continue metformin 1000mg BID -Pt denies any polydipsia, polyphagia, polyuria. -Lifestyle interventions advised. -Follow up in 3 months for chronic conditions, sooner as needed. History of breast cancer 08/25/2020 Assessment & Plan (12/30/2023 8:43 PM EDT): -DCIS (Ductal carcinoma in situ) of the left breast -Followed by [facility] - Dr. Quintero -She is S/p lumpectomy, completed radiation therapy. 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 Quintero -She is S/p lumpectomy, completed radiation therapy. -Continues on tamoxifen 20mg daily x 5 years (until 07/13/2025) -Denies any med SE -Plan for annual pelvic exam and annual eye exams Assessment & Plan (12/29/2022 5:58 PM EDT): -Followed by [facility] - Dr. Quintero -She is S/p lumpectomy, completed radiation therapy. -Continues on tamoxifen 20mg daily x 5 years (until 07/13/2025) -Denies any med SE -Plan for annual pelvic exam and annual eye exams Assessment & Plan (03/25/2022 1:56 PM EST): -Followed by Dr. Quintero -Completed radiation therapy, continues on tamoxifen 20mg daily x 5 years (until 07/13/2025) -Denies any med SE Other hyperlipidemia 06/18/2018 Assessment & Plan (12/30/2023 8:42 PM EDT): -Continue atorvastatin 80mg nightly -Rec lifestyle interventions Lab Results Component Value Date CHOL 201 (H) 07/30/2023 TRIG 232 (H) 07/30/2023 TRIG 94 03/27/2022 HDL 44 07/30/2023 LDLCHOLCAL 111 (H) 07/30/2023 Assessment & Plan (04/20/2023 6:35 PM EST): -Continue atorvastatin 80mg nightly -Recheck fasting lipid panel Assessment & Plan (03/25/2022 1:50 PM EST): -Continue atorvastatin 80mg nightly -Recheck fasting lipid panel Microalbuminuric diabetic nephropathy 06/18/2018 Subclinical hypothyroidism 06/18/2018 Assessment & Plan (04/20/2023 6:38 PM EST): -Recheck TSH Assessment & Plan (03/25/2022 1:51 PM EST): -Recheck TSH Constipation 05/28/2018 Assessment & Plan (03/25/2022 1:54 PM EST): -Continue following with management through GI Schizoaffective disorder 05/28/2018 Assessment & Plan (09/17/2023 4:40 PM EDT): -Denies SI/HI/thoughts of self harm -Followed by Dr. Slade Gracia -Continue with med management through psych team: Invega 12mg PO daily Trazodone 200mg PO at bedtime PRN Oxcarbazepine 600mg PO at bedtime Zoloft 200mg PO daily Seroquel 100mg PO at bedtime Topamax 25mg BID Previously following with [facility] and [facility]. 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 Assessment & Plan (04/20/2023 6:37 PM EST): -Denies SI/HI/thoughts of self harm -Followed by Dr. Slade Gracia -Continue with med management through psych team: ?? Invega 12mg PO daily ?? Trazodone 200mg PO at bedtime PRN ?? Oxcarbazepine 600mg PO at bedtime ?? Zoloft 200mg PO daily ?? Seroquel 100mg PO at bedtime ?? Topamax 25mg BID Assessment & Plan (03/25/2022 1:53 PM EST): -Denies SI/HI/thoughts of self harm -Followed by Dr. Slade Gracia -Continue with med management through psych team: ?? Invega 12mg PO daily ?? Trazodone 200mg PO at bedtime PRN ?? Oxcarbazepine 600mg PO at bedtime ?? Zoloft 200mg PO daily ?? Seroquel 100mg PO at bedtime ?? 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 Date Type Department Care Team Description 07/16/2024 Travel 07/15/2024 Patient Outreach [facility] [address] [place] [address] Burak Jerez Outreach/No Answer (Community Outreach. Did not answer the door.) 07/09/2024 Telephone [facility] [address] [place] [address] Ana Luisa Bourne FNP Appointment Request 07/08/2024 Refill [facility] [address] [place] [address] Ana Luisa Bourne FNP Other hyperlipidemia 07/07/2024 Refill [facility] [address] [place] [address] Cleo Malone MD Primary hypertension 06/24/2024 Refill [facility] [address] [place] [address] Ana Luisa Bourne FNP Type 2 diabetes mellitus without complication, with long-term current use of insulin ([facility]) 06/15/2024 Telephone [facility] [address] [place] [address] Angeline Georges PharmD 06/15/2024 Refill [facility] [address] [place] [address] Ana Luisa Bourne FNP Type 2 diabetes mellitus without complication, with long-term current use of insulin ([facility]/HCC) 06/10/2024 Telephone [facility] [address] [place] [address] Ana Luisa Bourne FNP Schedule Physical 06/08/2024 Refill [facility] [address] [place] [address] Ana Luisa Bourne FNP 05/21/2024 Population Health Risk Score [facility] [address] [place] [address] Provider, Population Health Generic from Last 3 Months Immunizations Immunization Administration Dates Next Due Hep A, Adult 05/17/2021,10/14/2018 Hep B, adult 05/17/2021,10/14/2018,06/18/2018 INFLUENZA VACCINE QUADRIVALE NT RECOMBINANT PRESERVATIVE FREE RIV4 12/30/2019 Influenza Whole 11/20/2011,12/21/2010 Influenza injectable quadriv alent preservative free 12/23/2022,03/22/2022,11/30/2018 Influenza, IIV3, injectable 01/10/2021,1 04/13/2016,12/14/2015,03/29,11/24/2012,01/24/2010 Influenza, seasonal, injecta ble, preservative free 11/17/2023,01/07/2018,05/19/2016,11/25 Pfizer Covid-19 Vaccine 12+ 11/27/2023, 3 Pfizer Covid-19 Vaccine 12+ Bivalent 03/22/2022 Pneumococcal Conjugate PCV 20 04/18/2023 Pneumococcal Polysaccharide PPSV23 05/28/2018,,11/24/2012 Td (adult), unspecified 07/06/2008 Tdap 05/28/2018 Social History Tobacco Use Types Packs/Day Years Used Date Smoking Tobacco: Every Day Cigarettes Passive Smoke Exposure: Current Smokeless Tobacco: Never Tobacco Cessation:Ready to Q uit: Not Asked; Counseling Given: Not Answered Alcohol Use Standard Drinks/Week Comments Never 0 [...] Answer Date Recorded Patient Health Questionnaire-9 Score 07/19/2024 Patient Health Questionnaire-9 Score 07/19/2024 Last PHQ-9: Questionnaire Data Not on file 0 07/19/2024 Housing Stability Answer Date Recorded What is your housing situation today? I have andres sing 09/17/[address] you li [...] Answer Date Recorded Patient Health Questionnaire-2 Score 6 07/19/2024 Internet Access Answer Date Recorded Internet Access Q1 Yes 11/07/2023 Internet Access Q2 Not on file 11/07/2023 Comments Unknown Sex and Gender Information Value Date Recorded Sex Assigned at Female 01/07/2022 10:35 AM EDT Legal Sex Female 10:35 AM EDT Gender Identity Female 01/07/2022 10:35 AM EDT Sexual Orientation Don't know 01/07/2022 10 :35 AM EDT Last Filed Vital Signs Vital Sign Reading Time Taken Comments Blood Pressure 116/64 12/29/2023 10:31 AM EDT Pulse 74 12/29/2023 10:31 AM EDT Temperature 36.6 ??C (97.8 ??F) 12/29/2023 10:31 AM E DT Respiratory Rate 16 12/29/2023 10:31 AM EDT Oxygen Saturation 94% 12/29/2023 10:31 AM EDT Inhaled Oxygen Concentration - - Weight 57.8 kg (127 lb 6.4 oz) 12/29/2023 10:31 AM EDT Height 162.6 cm (5' 4 ) 12/29/2023 10:31 AM EDT Body Mass Index 21.87 12/29/2023 10:31 AM EDT Plan of Treatment Health Maintenance Due Date Last Done Comments CT Colonography 1972 Dental Prophylaxis 1972 Dental X-Ray: Bitewings 1972 FIT DNA/Cologuard 1972 FIT 1972 FOBT 1972 Sigmoidoscopy 1972 Diabetes: Foot Exam 1982 Family Planning (PISQ) 07/06/1987 Pap Smear 1993 Zoster Vaccines (1 of 2) 2022 Dental Oral Exam 12/27/2023 06/26/2023 Diabetes: Hemoglobin A1C 03/30/2024 024, 09/17/2023, 07/07/2023, Additional history exists Mammogram 05/06/2024 05/06/2023, 04/11, 04/19/2021, Additional history exists Lipid Panel 07/29/2024 07/30/2023, 03/10, 02/23/2021, Additional history exists SDOH Screening 09/16/2024 09/17/2023 Tobacco Screening 12/04/2024 12/05/2023 Eye Exam 07/09/2025 07/10/2023, 05/0 04/2023, 07/10/2023, Additional history exists Alcohol/Substance Use Screening 07/19/2025 07/19/2024 Depression Screening 07/19/2025 07/19/2024, 07/20/19 25 Colonoscopy 01/15/2026 01/16/2024 Colorectal Cancer Screening 01/15/2026 Cervical Cancer Screening 06/05/2026 HPV/Cotest 06/05/2026 06/05/2021 Dental X-Ray: Full Mouth 06/26/2026 06/26/2023 DTaP/Tdap/Td Vaccines (2 - Td or Tdap) 05/28/2028 05/28/2018, 07/06/2008 RSV Patients and Patients Aged 60 years or older (1 - 1-dose 75+ series) 07/06/2047 Hepatitis A Vaccines Aged Out 05/17/2021, 10/15/19 19 No longer eligible based on patient's age to complete this topic Hepatitis B Vaccines Completed 05/17/2021, 10/14/2018, 06/18/2018 HIV Screening Completed 06/07/2022 Hepatitis C Screening Completed 06/07/2022 Pneumococcal Vaccine: 50+ Years Completed 04/18/2023, 05/28/2018, 11/29/2015, Additional history exists Influenza Vaccine Completed 11/17/2023, , 03/22/2022, Additional history exists COVID-19 Vaccine Completed 11/27/2023, , 03/22/2022, Additional history exists HIB Vaccines [...] patient's age to complete this topic Meningococcal Vaccine Aged Out No meghana chun eligible based on patient's age to complete this topic RSV under 20 months Aged Out No longe r eligible based on patient's age to complete this topic Rotavirus Vaccines Aged Out No longer eligible based on patient's age to complete this topic Goals Goal Patient Goal Type Associated Problems Recent Progress Patient-Stated? Author Hemoglobin A1c < 7 Result Component 9.5(12/29/2023 10:33 AM EDT) No Piers-Gambl e, Geeta, PharmD Quit using tobacco (cigarettes, smokeless, etc) Tobacco Use No Piers-Gambl e, Geeta, PharmD Procedures Procedure Name Priority Date/Time Associated Diagnosis Comments COMPREHENSIVE METABOLIC PANEL Routine 06/02/2024 2:31 PM EDT CBC WITH AUTO DIFFERENTIAL Routine 06/02/2024 2:31 PM EDT HM COLONOSCOPY Routine 01/16/2024 2:15 PM EST POCT GLYCATED HEMOGLOBIN, TOTAL Routine 12/29/2023 10:33 AM EDT Type 2 diabetes mellitus without complication, with long-term current use of insulin ([facility]/HCC) LIPID PANEL, STANDARD Routine 07/30/2023 1:33 PM EDT Type 2 diabetes mellitus without complication, with long-term current use of insulin (CMS/HCC) PANORAMIC RADIOGRAPHIC IMAGE Routine 06/26/2023 2:00 PM EDT Edentulism COMPREHENSIVE ORAL EVALUATION - NEW OR ESTABLISHED PATIENT Routine 06/26/2023 2:00 PM EDT Edentulism BI MAMMOGRAM DIAGNOSTIC TOMOSYNTHESIS BILATERAL Routine 05/06/2023 11:45 AM EST HEPATITIS C ANTIBODY Routine 06/07/2022 2:18 PM EDT HIV ANTIBODY/ANTIGEN ([place] [facility]) Routine 06/07/2022 2:18 PM EDT ZZZ HISTORICAL HPV E6/E7 RFLX MARIBELL 16 18/45 Routine 06/05/2021 3:35 PM EDT from Last 3 Months or Most Recently Relevant to Health Maintenance Results * CBC auto differential (06/02/2024 2:31 PM EDT) White Blood Count 9.0 4.8 - 10.8 X10*3/uL [facility] Red Blood Count 5.24 4.20 - 5.50 X10*6/uL [facility] Hemoglobin 14.3 12.0 - 16.0 g/dl [facility] Hematocrit 46.1 37.0 - 47.0 % [facility] Mean Corpuscular Volume 88.0 80.0 - 98.0 fL [facility] Mean Corpuscular Hemoglobin 27.3 27.0 - 33.0 pg [facility] Mean Corpuscular HGB Conc 31.0 31.0 - 35.0 g/dl [facility] Red Cell Distribution Width 13.7 11.0 - 16.0 % [facility] Platelet Count 286 160 - 400 X10*3/uL [facility] Mean Platelet Volume 10.2 9.4 - 12.3 fL [facility] Neutrophils Percent Auto 67.0 45 - 73 % [facility] Imm Gran Pct Auto 0.3 0.0 - 0.4 % [facility] Lymphocytes Percent Auto 24.3 20 - 40 % [facility] Monocytes Percent Auto 6.5 2 - 11 % [facility] Eosinophils Percent Auto 1.0 0 - 4 % [facility] Basophils Percent Auto 0.9 0 - 2 % [facility] NRBC Pct Auto 0.0 0.0 - 0.2 /100WBC [facility] Neutrophils Absolute Auto 6.0 2.0 - 8.3 x10*3/uL [facility] Imm Gran Abs Auto 0.03 0.00 - 0.03 X10*3/uL [facility] Lymphocytes Absolute Auto 2.2 1.2 - 4.9 X10*3/uL [facility] Monocytes Absolute Auto 0.6 0.1 - 1.2 X10*3/uL [facility] Eosinophils Absolute Auto 0.1 0.0 - 0.4 X10*3/uL [facility] Basophils Absolute Auto 0.1 0.0 - 0.2 X10*3/uL [facility] NRBC Abs Auto 0.000 0.0 - 0.012 X10*3/uL [facility] 06/02/2024 2:31 PM EDT 06/02/2024 2:31 PM EDT us Generic External Data Provider LAB BLOOD ORDERAB LES Final Result [facility] [address] [place] [phone] * (ABNORMAL) Comprehensive Metabolic Panel (06/02/2024 2:31 PM EDT) Sodium 144 135 - 145 mmol/L [facility] Potassium 3.6 3.3 - 5.1 mmol/L [facility] Chloride 108 96 - 108 mmol/L [facility] Carbon Dioxide 29 22 - 29 mmol/L [facility] Anion Gap 11(L) 12 - 20 [facility] Urea Nitrogen (BUN) 4(L) 9 - 16 mg/dL [facility] Creatinine, Serum 0.66 0.5 - 1.4 mg/dL [facility] Estimated Glomerular Filt Rate >60 [facility] Comment:Chronic Kidney Disea se: Estimated GFR < 60 mL/min/1.10b3Zafbpg Kidney Disease: Estimated GFR < 15 mL/min/1.73m2 Glucose 188(H) 60 - 115 mg/dL [facility] Calcium 9.4 8.4 - 10.2 mg/dL [facility] Bilirubin, Total 0.3 0.0 - 1.0 mg/dL [facility] Aspartate Amino Transferase 20 5 - 31 U/L [facility] Alanine Aminotransferase 18 0 - 31 U/L [facility] Total Protein 7.2 6.5 - 8.0 g/dL [facility] Albumin Level 3.8 3.5 - 5.0 g/dL [facility] Alkaline Phosphatase 84 39 - 117 U/L [facility] 06/02/2024 2:31 PM EDT 06/02/2024 2:31 PM EDT Generic External Data Provider LAB BLOOD ORDERAB LES Final Result [facility] [address] [place] [phone] * Hm Colonoscopy (01/16/2024 2:15 PM EST) Historical Provider HEALTH MAINTENANCE Final Result * (ABNORMAL) POCT A1C (12/29/2023 10:33 AM EDT) Hemoglobin A1C 9.5(A) 4.0 - 6.0 % QC Media Lot # Comment:[id number] Lot# Expiration Date Comment:08/27/2025 Blood 12/29/2023 10:3 3 AM EDT Ana Luisa Bourne [employer] POINT OF CARE TEST ENTER/EDIT ORDERABLES Final Result * (ABNORMAL) Lipid Panel, Standard (07/30/2023 1:33 PM EDT) Triglycerides 232(H) <150 mg/dL [facility] Comment:Desirable Triglyceri de: less than 150 mg/dLBorderline High Triglyceride 150-199 mg/dLHigh Triglyceride: 200-499 mg/dLVery High Triglyceride: greater than or equal to 5OO mg/dL Cholesterol 201(H) <200 mg/dL [facility] Comment:Desirable Cholestero l: less than 200 mg/dLBorderline High Cholesterol: 200-239 mg/dLHigh Cholesterol: greater than 239 mg/dL LDL Cholesterol Calculated 111(H) <100 mg/dL [facility] Comment:Desirable LDL: less than 100 mg/dLNear Optimal/Above Optimal LDL: 110- 129 mg/dLBorderline High LDL: 130-159 mg/dLHigh LDL: 160-189 mg/dLVery High LDL: greater than or equal to 190 mg/dL HDL Cholesterol 44 >40 mg/dL [facility] Comment:Desirable HDL: great er than 40 mg/dL Note: This HDL assay may give artificially low results in patients with liver disease. Blood Venous blood specimen / Unknown 07/30/2023 1:33 PM EDT 07/30/2023 1:33 PM EDT us Ana Luisa Bourne [employer] LAB BLOOD ORDERABLES Final Res ult [facility] [address] [place] [phone] * BI Mammogram Diagnostic Tomosynthesis Bilateral (05/06/2023 11:45 AM EST) Anatomical Region Laterality Modality Breast Bilateral Mammography 05/06/2023 11:4 5 AM EST Narrative 05/06/2023 12:26 PM EST ? [facility] [place] ? [address] ?[place] [address] ? Mammography Report ? Signed ? Patient: Clifton Bultron,Hodan ?MR#: ?? [id number] ? : 1970 ?Acct:[id number] ? Age/Sex: 52 / F ?ADM Date: 02/27/24 ? Loc: HO.MAMMO ? Attending Dr: Ana Luisa Bourne [employer] ? Ordering Physician: Ana Luisa Bourne ?Results: 2Benig ?? n Findings ? Date of Service: 05/06/23 ?Follow Up: 1 Year From Orig ?? inal Mammogram ? Procedure(s): MM tomosynthesis diagnostic BI ?? Accession Number(s): [id number] ? cc: Ana Luisa Bourne [employer] ? EXAMINATION: ?? MM DIAGNOSTIC DIGITAL BREAST TOMOSYNTHESIS, BILATERAL ?? US BREAST LIMITED, RIGHT ? MAMMOGRAPHY: ?? CLINICAL INFORMATION: ? 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 status post radiation concluded 10/2020. History of benign stereotactic ?? biopsy anterior upper outer left breast. Patient also due for yearly. ? COMPARISON: ?? Mammography: Multiple prior exams, most recently 04/23/2022, and dating ?? back to 01/11/2020. ? TECHNIQUE: ?? Digital breast tomosynthesis is performed in both the craniocaudal and ?? mediolateral oblique views along with computer-aided detection (CAD). ?? Synthesized 2D images are generated from the tomosynthesis. In addition ?? to standard views, 2-D spot magnification views of the left breast ?? upper outer quadrant lumpectomy site were also obtained. ? FINDINGS: ?? The breasts are heterogeneously dense, which may obscure small masses ?? (ACR BI-RADS breast composition Category c). ? Left breast continues to resolve in terms of trabecular thickening and ?? postradiation changes as well as scarring from lumpectomy. ??Trabecular ?? pattern is overall stable. No suspicious masses, new suspicious ?? calcifications, or new areas of architectural distortion identified. ?? This concludes 3 year surveillance left breast post lumpectomy. ? The right breast demonstrates a focal asymmetry in the approximate 8:00 ?? periareolar far anterior right breast, seen on both CC and MLO views. ?? Spot magnification views demonstrated partial effacement of this ?? asymmetry although a persistent circumscribed 4 mm mass was present in ?? the approximate 9:00 axis, only seen on the CC projection. No MLO ?? correlate. This could also represent summation artifact.. We will ?? evaluate this with ultrasound. ?? There are stable loosely grouped calcifications in the slightly outer ?? central right breast, without change. Otherwise, no additional ?? suspicious findings right breast. ? No axillary or skin abnormalities. ? ULTRASOUND: ?? CLINICAL INFORMATION: ?? Evaluate circumscribed oval 4 mm mass right breast periareolar 8:00 ?? axis. ? COMPARISON: ?? 01/11/2020. ? TECHNIQUE: ?? Targeted sonographic evaluation right breast lateral periareolar region ?? was performed using a high frequency linear transducer. ??Selected ?? archived documentation. ? FINDINGS: ? RIGHT BREAST: There is a mixture of fatty and fibroglandular tissue. ?? No suspicious mass is seen. ??There is no pathologic acoustic shadowing. ?? There are no cystic abnormalities. There is no significant ductal ?? ectasia. Finding on mammography it was likely related to ?? superimposition. ? MM/MM tomosynthesis diagnostic BI ?? IMPRESSION: ?? There are no findings suspicious for malignancy in either breast. ? Continuing resolution of postradiation and lumpectomy changes left ?? breast. ? Stable benign findings right breast. ? Recommend resuming routine annual bilateral screening mammography in ?? one year. ? OVERALL ASSESSMENT: ?? Mammography: BI-RADS 2 - Benign Findings ?? Ultrasound: BI-RADS 2 - Benign Findings ? RECOMMENDATION: ?? 1 year F/U ? This patient's information was entered into a reminder system with a ?? target due date for their next mammogram. ? Dictated By: ?Slade Ware MD ? Signed By: ?<Electronically signed by Slade Ware MD in OV> ?05/06/23 1223 ? DD/ 1145 ? TD/TT: ? Professor Of Visual Arts: ? Procedure Note Donotuseinterpreter, Image - 05/06/2023 [facility] [address] 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 History of benign stereotactic biopsy anterior upper outer left breast. Patient also due for yearly. COMPARISON: Mammography: Multiple prior exams, most recently 04/23/2022, and dating back to 01/11/2020. TECHNIQUE: Digital breast tomosynthesis is performed in both the craniocaudal and mediolateral oblique views along with computer-aided detection (CAD). Synthesized 2D images are generated from the tomosynthesis. In addition to standard views, 2-D spot magnification views of the left breast upper outer quadrant lumpectomy site were also obtained. FINDINGS: The breasts are heterogeneously dense, which may obscure small masses (ACR BI-RADS breast composition Category c). Left breast continues to resolve in terms of trabecular thickening and postradiation changes as well as scarring from lumpectomy. Trabecular pattern is overall stable. No suspicious masses, new suspicious calcifications, or new areas of architectural distortion identified. This concludes 3 year surveillance left breast post lumpectomy. The right breast demonstrates a focal asymmetry in the approximate 8:00 periareolar far anterior right breast, seen on both CC and MLO views. Spot magnification views demonstrated partial effacement of this asymmetry although a persistent circumscribed 4 mm mass was present in the approximate 9:00 axis, only seen on the CC projection. No MLO correlate. This could also represent summation artifact.. We will evaluate this with ultrasound. There are stable loosely grouped calcifications in the slightly outer central right breast, without change. Otherwise, no additional suspicious findings right breast. No axillary or skin abnormalities. ULTRASOUND: CLINICAL INFORMATION: Evaluate circumscribed oval 4 mm mass right breast periareolar 8:00 axis. COMPARISON: 01/11/2020. TECHNIQUE: Targeted sonographic evaluation right breast lateral periareolar region was performed using a high frequency linear transducer. Selected archived documentation. FINDINGS: RIGHT BREAST: There is a mixture of fatty and fibroglandular tissue. No suspicious mass is seen. There is no pathologic acoustic shadowing. There are no cystic abnormalities. There is no significant ductal ectasia. Finding on mammography it was likely related to superimposition. MM/MM tomosynthesis diagnostic BI IMPRESSION: There are no findings suspicious for malignancy in either breast. Continuing resolution of postradiation and lumpectomy changes left breast. Stable benign findings right breast. Recommend resuming routine annual bilateral screening mammography in one year. OVERALL ASSESSMENT: Mammography: BI-RADS 2 - Benign Findings Ultrasound: BI-RADS 2 - Benign Findings RECOMMENDATION: 1 year F/U This patient's information was entered into a reminder system with a target due date for their next mammogram. Dictated By: Slade Ware MD Signed By: <Electronically signed by Slade Ware MD in OV> 05/06/23 1223 DD/ 1145 TD/TT: Professor Of Visual Arts: Ana Luisa Bourne [facility] IM BI PROCEDURES Final Result * Hepatitis C Ab (06/07/2022 2:18 PM EDT) Hepatitis C Antibody Nonreactive Nonreactive [facility] Comment:Antibodies to HCV no t detected; does not exclude early acuteHCV infection. 06/07/2022 2:18 PM EDT 06/07/2022 2:18 PM EDT [facility] External Provider LAB BLO OD ORDERABLES Final Result Performing Organization Address [facility] Co de Phone Number [facility] [address] [place] [phone] * HIV Ab/Ag ([facility]) (06/07/2022 2:18 PM EDT) HIV AB/AG Nonreactive Nonreactive [facility] Comment:HIV-1 p24 Ag and/or HIV-1/HIV-2 Ab not detected.A test result that is nonreactive does not exclude thepossibility of exposure to or infection with HIV-1 and/orHIV-2. Nonreactive results in this assay for individualswith prior exposure to HIV-1 and/or HIV-2 may be due toantigen and antibody levels that are below the limit ofdetection of this assay.The [place] [employer] HIV Ag/Ab Combo assay result andsupplemental assay results should be interpreted inconjunction with the patient's clinical presentation,history and other laboratory results. If the results areinconsistent with clinical evidence, additional testing issuggested to confirm the result. 06/07/2022 2:18 PM EDT 06/07/2022 2:18 PM EDT [facility] External Provider LAB BLO OD ORDERABLES Final Result Performing Organization Address [facility] Co de Phone Number [facility] [address] [place] [phone] * HPV E6/E7 RFLX MARIBELL 16 18/45 (06/05/2021 3:35 PM EDT) HPV mRNA E6/E7 rflx Not Detected Not Detected [facility] Comment: Methodology: Convolute Tube Winder-Mediated Amplification This assay detects E6/E7 viral messenger RNA (mRNA) from 14 high-risk HPV types (16,18,31,33,35,39,45,51,52,56,58,59,66,68). The analytical performance characteristics of this assay have been determined by [employer]. The modifications have not been cleared or approved by the FDA. This assay has been validated pursuant to the CLIA regulations and is used for clinical purposes. For additional information, please refer to http://education.[employer]/faq/TMD043y8 (This link if provided for information/ educational purposes only.) THIS TEST WAS PERFORMED AT: [facility] [address] [place] [address] [address] [place], [place] ??[phone] LEE VILLALPANDO MD 06/05/2021 3:35 PM EDT us Estela Hung HISTORICAL/NON ORDERABLE LABS Fi nal Result [facility] Anywhere [address] from Last 3 Months or Most Recently Relevant to Health Maintenance Insurance [facility] C3 DENTAL-[facility] MEDICAID STAND ADULT Care Teams Floor 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
== END 2024-07-21 12:26 | disposition home or self-care (01) ==
LOC: HO.MAMMO 12:25
PROVIDERS: PCP Registered Nurse; Visit Provider Internal Medicine Medical Oncology
DX: Z12.31 Encounter for screening mammogram for malignant neoplasm of breast (principal)
CPT/HCPCS: 77063; 77067

== ENCOUNTER → 2024-07-21 13:00 | Outpatient (BNV) | payer MEDICAID, SELFPAY | PROVIDERS: PCP Registered Nurse; Visit Provider Internal Medicine | DX: Z12.31 Encounter for screening mammogram for malignant neoplasm of breast (principal) | CPT/HCPCS: 77063; 77067 ==

== ENCOUNTER 2024-09-20 11:00 | Outpatient (REF) | payer MEDICAID, SELFPAY ==
--- OUTSIDE RECORDS SUMMARY | 2024-09-20 12:04 | XMS_ITS | Clinical Summary ---
Author Organization [address] [facility] Address [address] [place] [address] Phone Care Team Providers Care Contour Path Tape Mill Operator Name Role Phone Ana Luisa Bourne RN [...] Care Team (Late st Contact Info) Description 10/27/2024 1:30 PM EDT Office Visit Orthopedic Surgery - [place] [address] [phone] Teodoro Palomino, ROXANN [address] [phone] Health Maintenance Due Date Last Done Comments [...] 04/13/2024 COVID-19 Vaccine (4 - Pfizer risk season) 2024 11/27/2023, 12/23/2022, 03/22/2022 Diabetes: Blood Sugar Control Test (HGBA1C) 06/28/2024 12/29/2023 Influenza Vaccine (#1) 2024 , 12/23/2022, 03/22/2022, Additional history exists Depression Screening 12/17/2024 12/18/2023 DTaP,Tdap,and Td Vaccines (3 - Td or Tdap) 05/28/2028 05/28/2018, 07/06/2008 Cholesterol Screening (Lipid Panel) 07/29/2028 07/30/2023 Hepatitis A Vaccines Completed 05/17/2021, 10/15/19 Hepatitis B Vaccines Completed 05/17/2021, 10/14/2018, 06/18/2018 Pneumococcal Vaccine: 50+ Years Completed 04/18/2023, 05/28/2018, 11/29/2015, Additional history exists HIB Vaccines Aged Out [...] topic Insurance MEDICAID - [place] Care Teams Contour Path Tape Mill Operator Relationship Specialty Start Date End Date Ana Luisa Bourne RN [address] [phone] PCP - General 04/23/23
[2024-09-20 14:33] LABS: Alanine Aminotransferase 19 U/L (0-31); Albumin Level 4.1 g/dL (3.5-5.0); Alkaline Phosphatase 93 U/L (39-117); Aspartate Amino Transferase 18 U/L (5-31); Blood Urea Nitrogen 12 mg/dL (9-16); Estimated Glomerular Filt Rate > 60; Total Protein 7.6 g/dL (6.5-8.0)
[2024-09-21 08:12] LABS: Syphilis Screen Reactive (Nonreactive)
[2024-09-21 08:21] LABS: HBS Num1 2.12 mIU/mL (0-7.99); HBc Num1 0.15 S/CO (0.00-0.79); HBsAGNum1 0.41 S/CO (0.00-0.99); HIV Num 1 0.06 S/CO (0.00-0.99); Hepatitis B Surface Antigen Negative (Negative); ~HepC Num1 0.18 S/CO (0.00-0.79); ~Hepatitis B Surface Antibody NONREACTIVE (Nonreactive); ~Hepatitis C Antibody Nonreactive (Nonreactive)
[2024-09-21 10:10] LABS: Bacterial Vaginosis PCR NEGATIVE (Negative); Candida Group PCR DETECTED (Not Detect); Candida glab krusei PCR NOT DETECTED (Not Detect); Trichomonas vaginalis PCR NOT DETECTED (Not Detect)
[2024-09-21 10:23] LABS: CT PCR NOT DETECTED (Not Detect.); NG PCR NOT DETECTED (Not Detect.)
[2024-09-23 07:59] LABS: TS Negative Control Passed; TS Panel A 0; TS Panel B 0; TS Positive Control Passed; TSpotTB Negative (Negative)
[2024-09-25 14:39] LABS: T.Pallidum Particle Agg Test Reactive (Nonreactive)
== END 2024-09-20 11:01 | disposition home or self-care (01) ==
LOC: HO.HHCL 11:00
PROVIDERS: Nurse Practitioner Family; PCP Registered Nurse; Visit Provider Advanced Practice Midwife
DX: R10.11 Right upper quadrant pain (principal); E11.9 Type 2 diabetes mellitus without complications; Z79.4 Long term (current) use of insulin; Z11.59 Encounter for screening for other viral diseases; Z11.3 Encounter for screening for infections with a predominantly sexual mode of transmission; Z11.4 Encounter for screening for human immunodeficiency virus [HIV]; Z11.1 Encounter for screening for respiratory tuberculosis; Z29.81 Encounter for HIV pre-exposure prophylaxis; Z11.8 Encounter for screening for other infectious and parasitic diseases
CPT/HCPCS: 36415; 80076; 81515; 82565; 84520; 86481; 86592; 86704; 86706; 86780; 86803; 87086; 87147; 87340; 87389; 87491; 87591

== ENCOUNTER 2024-10-14 07:31 | Inpatient (IN) | payer MEDICAID, SELFPAY ==
[2024-10-14] VITALS (8 sets, daily range): BP systolic 125–146; BP diastolic 62–80; PULSE 53–78; RESP 13–24; TEMP 36.2–36.8; O2SAT 96–98; BMI 23.0; BMI 22.7
--- NOTE | ~2024-10-14 | CT_ITS ---
EXAMINATION: CT ABDOMEN AND PELVIS WITH CONTRAST CLINICAL INFORMATION: Abdominal pain. COMPARISON: February 24, 2024 TECHNIQUE: Multidetector volumetric images were obtained from the superior aspect of the liver through the pubic symphysis following administration 85 mL of Omnipaque 350 intravenous contrast. Sagittal and coronal reformatted images were obtained on the technologist's workstation. Oral contrast: No This CT examination was performed using dose optimization techniques as appropriate, variously including the following: *Automated exposure control *Adjustment of mA and/or kV according to patient size (this includes techniques or standardized protocols for targeted exams where dose is matched to indication/reason for exam; i.e. extremities or head) *Use of iterative reconstruction technique DLP: 503 mGy centimeter. FINDINGS: LUNG BASES: No gross acute airspace disease. LIVER, GALLBLADDER, AND BILIARY TREE: Liver measures 15 cm. No focal lesion. Portal veins, and intrahepatic portion of the IVC are patent. No intrahepatic biliary ductal dilatation. Cholecystectomy. Common bile duct measures 9 mm. PANCREAS: No focal lesion. No main pancreatic ductal dilatation. 2 mm hypodensity, body of the pancreas. No peripancreatic fluid collection. SPLEEN: 9 cm. No focal lesion. ADRENAL GLANDS: No nodular lesion. KIDNEYS AND URETERS: No hydronephrosis. No gross nephrolithiasis. No enhancing renal mass. 9 mm exophytic fluid density, posterior midportion of the left kidney. Subcentimeter cyst, right kidney. BLADDER: Wall thickening. GASTROINTESTINAL TRACT: Swelling of the mesenteric involving the proximal small bowel loops. There is collapsed appearance of the distal ileal loops. Gas and fluid-filled proximal small bowel loops. There is protrusion of the mid to distal small bowel loops into the umbilical's. Sutures at the hepatic colonic flexure. No pneumatosis intestinalis. There is abundant stool within the large intestine. Subsegmental areas of the intestinal wall thickening in the left hemiabdomen. Trace amount of ascites. No peripheral enhancing fluid collection. No pneumoperitoneum. Hiatal hernia.. ABDOMINAL WALL: Fat-containing umbilical and supraumbilical and epigastric hernias. LYMPH NODES: No gross mesenteric or retroperitoneal lymphadenopathy. VASCULAR: Mixed plaques in the distal abdominal aorta wall and iliac arteries without aneurysm or dissection. Prominent pelvic vessels seem to the left adnexa. There is a focal narrowing of the left main renal vein secondary to superior mesenteric artery/abdominal aorta. PELVIC VISCERA: Uterus in in different/retroflexion with heterogeneous enhancing pattern and focal decreased density intramural lesion posterior body of the uterus. There is prominent vessels in the periphery of the uterus and towards the left adnexa. OSSEOUS STRUCTURES: Grade 1 anterolisthesis secondary to degenerative changes at L5-S1 resulting in bilateral neuroforamina stenosis. There is vacuum phenomenon at L5-S1. Bone marrow inhomogeneity. Irregularities in the acetabulum likely related to patient's motion artifact. CT/CT abdomen pelvis w IV con IMPRESSION: Concerning internal hernia, right hemiabdomen with the incomplete/intermittent bowel obstruction. Inflammatory bowel disease such as Crohn's cannot be excluded. Loculated the umbilical and supraumbilical and epigastric mostly fat-containing hernias. Concerning pelvic congestion, left adnexa. Probable uterine fibroid. Inflammatory versus infectious process in the urinary bladder cannot be excluded. Hiatal hernia. Fleischner guidelines were followed. Electronically signed by: Sam Tavarez MD 10/14/2024 09:32 AM EDT
--- NOTE | ~2024-10-14 | FL_ITS ---
EXAMINATION: FL SMALL BOWEL SERIES CLINICAL INFORMATION: SBO with concern for internal hernia COMPARISON: None. TECHNIQUE: Following a hand cooper helper image of the abdomen, contrast was administered orally, and interval abdominal radiographs were performed to assess for contrast progression through the small bowel. Following contrast transit through the small bowel and into the colon, the patient was placed on the fluoroscopy table, and multiple spot images were obtained. FINDINGS: [facility] Family Services Specialist image of the abdomen demonstrates a normal bowel gas pattern with mild scattered stool in left colon. There is excreted urinary contrast and urinary bladder from earlier CT abdomen exam 10/14/2034 at 8:20 PM There is normal transit time of 50-50 dilated oral Gastrografin contrast material through the small bowel, with contrast present in the colon by 1 hour 30 minutes. Small bowel loops are of normal caliber throughout the abdomen and pelvis. The jejunal and ileal fold patterns are normal, without evidence of abnormal thickening. No fixed regions of luminal narrowing are seen to suggest stricturing. The terminal ileum demonstrates a normal appearance. FLUOROSCOPY TIME: None DOSE AREA PRODUCT: None uGy-m2 (microgray-meter squared) FL/FL small bowel follow through IMPRESSION: Normal small bowel 50-50 diluted Gastrografin series. Electronically signed by: Ricardo Harrington MD 10/14/2024 04:16 PM EDT
--- NOTE | 2024-10-14 08:09 | ED.GENADULT ---
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 (all interactions with this patient were facilitated with an [facility] senior svp) Mode of arrival: ambulatory Limitations: language barrier (all interactions with this patient were facilitated with an [facility] senior svp) History of Present Illness ED Provider: Sasha Almanza PA-C HPI narrative: Patient is a 54 year old assigned female at with a history of DM, DCIS of breast, anemia, HTN, depression, cholecystectomy, right sided colectomy secondary to a serrated polyp, and left breast lumpectomy presenting to the emergency department today with sudden onset severe abdominal pain starting this morning. Patient states that this morning she all of a sudden had abdominal pain that is not improving. Patient states that she had a bowel movement yesterday but has not had one today and has not vomited. Patient denies any dizziness, lightheadedness, nausea, vomiting, fever, chills, blurry vision, double vision, loss of vision, chest pain, difficulty breathing, shortness of breath, back pain, night sweats, pain with urination, increased urinary frequency, increased urinary urgency, blood in her urine or stool, syncope or a near syncopal episode, recent trauma or falls, or any other complaints at this time. Onset (ago): hour(s) Relieving factors: none Exacerbating factors: none Associated symptoms: denies other symptoms Treatments prior to arrival: none Related Data Home Medications ?Medication ?Instructions ?Recorded ?Confirmed atorvastatin 80 mg tablet (Lipitor) 80 mg PO DAILY 05/03/20 10/11/24 lisinopril 5 mg tablet 5 mg PO DAILY 05/03/20 10/11/24 metformin 1,000 mg tablet 1,000 mg PO BID 05/03/20 10/11/24 oxcarbazepine 600 mg tablet 600 mg PO BEDTIME 05/03/20 10/11/24 sertraline 100 mg tablet (Zoloft) 200 mg PO DAILY 05/03/20 10/11/24 dapagliflozin propanediol 5 mg 1 tab PO QAM diabetes mellitus 01/22/21 10/11/24 tablet (Farxiga) polyethylene glycol 3350 17 gram 17 g PO DAILY 04/20/21 10/11/24 oral powder packet (Miralax) budesonide-formoterol HFA 80 1 puff inhalation BID 06/07/22 10/11/24 mcg-4.5 mcg/actuation aerosol inhaler (Symbicort) topiramate 50 mg tablet (Topamax) 50 mg PO BID 06/07/22 10/11/24 trazodone 100 mg tablet 200 mg PO BEDTIME PRN Insomnia 06/07/22 10/11/24 ketoconazole 2 % shampoo 2 appl topical DAILY 07/28/23 10/11/24 naltrexone 50 mg tablet 50 mg PO DAILY 07/28/23 10/11/24 paliperidone 6 mg tablet,extended 12 mg PO QAM 07/28/23 10/11/24 release 24 hr (Invega) triamcinolone acetonide 0.1 % 0.1 appl topical DAILY 07/28/23 10/11/24 topical cream ammonium lactate 12 % lotion 12 appl topical BEDTIME 12/30/23 10/11/24 blood sugar diagnostic (FreeStyle #10 ea 12/30/23 10/11/24 Lite Strips) clotrimazole 1 % topical cream 1 appl topical DAILY 12/30/23 10/11/24 flash glucose sensor (FreeStyle #1 ea 12/30/23 10/11/24 Jaylan 2 Sensor kit) insulin lispro protamine-lispro 100 unit subcut 2XD 12/30/23 10/11/24 100 unit/mL (75-25) subcutaneous susp (Humalog Mix 75-25(U-100)Insuln) lancets 28 gauge (FreeStyle #100 ea 12/30/23 10/11/24 Lancets) nicotine 21 mg/24 hr daily 1 patch topical DAILY 12/30/23 10/11/24 transdermal patch olanzapine 5 mg tablet 5 mg PO BEDTIME 12/30/23 10/11/24 pen needle, diabetic 32 gauge x #1,200 ea 12/30/23 10/11/24 (BD Padmini 2nd Gen Pen Needle) quetiapine 100 mg tablet 50 mg PO BEDTIME 04/13/24 10/11/24 Previous Rx's ?Medication ?Instructions ?Recorded albuterol sulfate 90 mcg/actuation 2 puff inhalation Q4-6H PRN 06/12/21 aerosol inhaler (ProAir HFA) shortness of breath or wheezing #6.7 grams tamoxifen 20 mg tablet 20 mg PO DAILY #90 tabs 04/13/24 ferrous sulfate 325 mg (65 mg 325 mg PO DAILY #60 tabs 04/27/24 iron) tablet bisacodyl 5 mg tablet,delayed 10 mg (2 x 5 mg) PO BEDTIME #180 06/02/24 release (Dulcolax (bisacodyl)) tabs docusate sodium 100 mg capsule 100 mg PO BID #90 caps 06/02/24 (Colace) magnesium hydroxide 400 mg/5 mL 10 ml PO DAILY PRN constipation 06/02/24 oral suspension (Milk of Magnesia) #355 mL Allergies Allergy/AdvReac Type Severity Reaction Status Date / Time No Known Allergies (No Known Allergy Verified 10/14/24 07:53 Allergies*) Review of Systems Constitutional: Constitutional: Reports no additional constitutional complaints, Denies chills, Denies fever(s) and Denies night sweats Eyes: Eyes: Reports no additional eye complaints, Denies blurry vision, Denies change in vision, Denies diplopia, Denies eye discharge, Denies loss of vision and Denies eye pain ENT: Denies dizziness Cardiovascular: Cardiovascular: Reports no additional cardiovascular complaints, Denies chest pain, Denies lightheadedness, Denies Loss of Consciousness and Denies dyspnea Respiratory: Respiratory: Reports no additional respiratory complaints and Denies dyspnea Gastrointestinal: Gastrointestinal: Reports no additional gastrointestinal complaints, Reports abdominal pain, Denies melena, Denies hematochezia, Denies change in bowel habits, Denies change in stool character, Denies nausea and Denies vomiting Genitourinary: Genitourinary: Denies hematuria, Denies urinary frequency, Denies dysuria, Denies urinary incontinence, Denies urinary hesitancy and Denies urinary urgency Musculoskeletal: Musculoskeletal: Reports no additional musculoskeletal complaints, Denies numbness and Denies tingling Neurologic: Denies dizziness, Denies loss of vision, Denies numbness and Denies tingling Psychiatric: Psychiatric: Reports no additional psychiatric complaints Endocrine: Endocrine: Reports no additional endocrine complaints Hematologic/Lymphatic: Hematologic/Lymphatic: Reports no additional hematologic/lymphatic complaints Allergic/Immunologic: Allergic/Immunologic: Reports no additional allergic/immunologic complaints PMFSH Past Medical History Attestation statement: The following information was validated with the patient. Source: old records reviewed and nursing notes reviewed Medical History History of syphilis History of syphilis History of ductal carcinoma in situ (DCIS) of breast Anxiety Serrated polyp of colon Cecal polyp Nipple discharge Elevated cholesterol Family history of breast cancer Lobular carcinoma in situ (LCIS) of left breast Ductal carcinoma in situ (DCIS) of breast Hypertension Diabetes mellitus Depression Breast calcification, left Surgical History History of laparoscopic cholecystectomy H/O colonoscopy H/O breast surgery History of tubal ligation Family History Family History Sister History of breast cancer Social History Social History Household Members: Children Household Members Other:: son 18 yrs old Housing: Apartment Are you a primary child care provider to a significant other at home: No Do you presently have visiting nurse or other home services: Yes ([facility] bid for meds, 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) Alcohol intake: never Patient Tobacco Use Status: Current everyday Tobacco user Tobacco use type: Cigarette Cigarette Packs Per Day: 2 Cigarettes Per Day: 40.0 Years Smoked: 30 Smoked in Last 30 Days: Yes Use of substances other than those prescribed or required for medical reasons: Yes Substance Use Type: Crack/Cocaine Substance Use Frequency: Daily Advance Directives: No Advance Directives Information Provided: Yes Do you have a plan to hurt others: No Plan Patient : No service: No Current occupational status: unemployed Sexual orientation: Straight/Heterosexual Gender identity: Female Physical Exam ED Vital Signs: Vital Signs - 24 hr 10/14/24 07:51 10/14/24 07:53 10/14/24 08:33 Temperature 98.0 F 98.0 F Pulse Rate 67 67 Respiratory Rate 13 13 24 H Blood Pressure 143/66 H 143/66 H Pulse Oximetry 98 98 Oxygen Delivery Method Room Air Room Air 10/14/24 09:11 10/14/24 10:33 Temperature 97.2 F Pulse Rate 57 53 Respiratory Rate 17 Blood Pressure 146/64 H 125/62 Pulse Oximetry 98 Oxygen Delivery Method Room Air BMI result Body Mass Index 23.0 Const General: cooperative, no acute distress, alert and awake Nutritional Appearance: well nourished Orientation/consciousness: patient oriented x3 HENMT Head: Yes normal to inspection and Yes atraumatic Ears: hearing grossly normal bilaterally and external ears normal General nose exam: Normal external nose present, no nasal discharge noted and no epistaxis Face and sinus: Yes normal facial exam, No abrasion and No laceration Mouth: Normal oral and palatal mucosa present, no drooling and no muffled voice Eyes General: appearance normal, both eyes and all related structures Periorbital: periorbital findings normal Eyelids: Yes eyelids normal Conjunctivae: conjunctivae normal Pupils: Equal, round and reactive pupils present EOM: EOMs intact bilaterally Neck Neck: Yes normal visual inspection, Yes full ROM and Yes no lymphadenopathy Resp Effort & Inspection: normal respiratory effort and able to speak in complete sentences GI Palpation (GI): Soft to palpation, not firm, Tenderness to palpation present (GI) and no guarding Neuro General: patient oriented x3, moves all extremities and CN's II-XI intact bilaterally Cranial nerves: Yes Equal, round and reactive pupils present Cognition (Neuro): normal cognition Extrem General: Yes normal to inspection, Yes full ROM and Yes capillary refill normal Psych Appearance: grossly normal Mental Status: mental status grossly normal Affect: normal affect Attitude: cooperative Thought process: Normal thought process present Thought content: Normal thought content present Insight: Good insight present (Psych) Medications Administered Discontinued Medications Generic Name Dose Route Start Last Admin Trade Name Freq PRN Reason Stop Dose Admin Iohexol 100 ml 10/14/24 09:02 10/14/24 09:03 Iohexol 350 Mg/Ml 100 Ml Infus..Btl IV 10/14/24 09:03 85 ml ONCE ONE Administration Morphine Sulfate 4 mg 10/14/24 08:23 10/14/24 08:33 Morphine Sulfate 4 Mg/Ml Cartridge IVPUSH 10/14/24 08:24 4 mg ONCE ONE Administration Protocol Ondansetron HCl 4 mg 10/14/24 08:23 10/14/24 08:33 Ondansetron Hcl 4 Mg/2 Ml Vial IVPUSH 10/14/24 08:24 4 mg ONCE ONE Administration Medical Decision Making Medical Decision Making MDM Narrative: Patient is a 54 year old assigned female at with a history of DM, DCIS of breast, anemia, HTN, depression, cholecystectomy, right sided colectomy secondary to a serrated polyp, and left breast lumpectomy presenting to the emergency department today with sudden onset severe abdominal pain starting this morning. Patient's physical exam was as noted in the physical exam portion of this note. Patient's blood work showed a WBC count of 11.8. Patient's CT abd/pelvis showed evidence concerning for obstruction. I spoke to the general surgery team who agreed to admission. I explained my physical exam findings as well as all test results to the patient. I answered all questions asked by the patient. Patient received IV morphine which, upon re-evaluation, she stated it helped her symptoms some. Patient verbalized agreement and understanding with this treatment plan and admission. Differential Diagnosis Differential Diagnoses: The differential diagnosis associated with the presentation includes SBO Abdominal pain Admission/Observation Consideration of admission/observation: Escalation of care including admission/observation considered Patient admitted as noted in the MDM Rationale portion of this note. Consult Healthcare Provider Management of the patient was discussed with: Application Design Engineer (Consulted with the GI service who recommended admission to them as noted in the MDM Rationale portion of this note. ) Lab Data [facility] Lab Attestation statement: I reviewed the patient's lab results. My interpretation of these results are in the MDM Rationale portion of this note. 10/14/24 08:18 10/14/24 08:18 Labs: Lab Results 10/14/24 10/14/24 Range/Units 08:18 08:34 WBC 11.8 H (4.8-10.8) X10*3/uL RBC 5.30 (4.20-5.50) X10*6/uL Hgb 15.1 (12.0-16.0) g/dl Hct 44.4 (37.0-47.0) % MCV 83.8 (80.0-98.0) fL MCH 28.5 (27.0-33.0) pg MCHC 34.0 (31.0-35.0) g/dl RDW 13.6 (11.0-16.0) % Plt Count 246 (160-400) X10*3/uL MPV 9.9 (9.4-12.3) fL Immature Gran % (Auto) 0.3 (0.0-0.4) % Neut % (Auto) 71.3 (45-73) % Lymph % (Auto) 21.3 (20-40) % [place]t % (Auto) 5.6 (2-11) % Eos % (Auto) 0.9 (0-4) % Baso % (Auto) 0.6 (0-2) % Lymph # (Auto) 2.5 (1.2-4.9) X10*3/uL [place] # (Auto) 0.7 (0.1-1.2) X10*3/uL Eos # (Auto) 0.1 (0.0-0.4) X10*3/uL Baso # (Auto) 0.1 (0.0-0.2) X10*3/uL Abs Immat Gran (auto) 0.04 H (0.00-0.03) X10*3/uL Absolute Neuts (auto) 8.4 H (2.0-8.3) x10*3/uL Absolute Nucleated RBC 0.000 (0.0-0.012) X10*3/uL Nucleated RBC % (auto) 0.0 (0.0-0.2) /100WBC Sodium 139 (135-145) mmol/L Potassium 4.1 (3.3-5.1) mmol/L Chloride 104 (96-108) mmol/L Carbon Dioxide 25 (22-29) mmol/L Anion Gap 14 (12-20) BUN 9 (9-16) mg/dL Creatinine 0.82 (0.5-1.4) mg/dL Estim Creat Clear Calc 69.3 Estimated GFR > 60 Random Glucose 261 H (60-115) mg/dL Calcium 9.9 (8.4-10.2) mg/dL Magnesium 1.6 (1.6-2.6) mg/dL Total Bilirubin 0.5 (0.0-1.0) mg/dL AST 19 (5-31) U/L ALT 14 (0-31) U/L Alkaline Phosphatase 93 (39-117) U/L Total Protein 7.8 (6.5-8.0) g/dL Albumin 4.4 (3.5-5.0) g/dL Influenza Type A (PCR) NEGATIVE (Negative) Influenza Type B (PCR) NEGATIVE (Negative) RSV RNA Qual (PCR) NEGATIVE (Negative) SARS-CoV-2 RNA (RT-PCR) NEGATIVE (Negative) Independent Interpretation I performed an independent interpretation of an: CT Scan Interpretation: My interpretation is in agreement with the radiologist's impression of this imaging study. Report Number: [id number]: Total DLP = 503.00 mGy-cm EXAMINATION: CT ABDOMEN AND PELVIS WITH CONTRAST CLINICAL INFORMATION: Abdominal pain. COMPARISON: February 24, 2024 TECHNIQUE: Multidetector volumetric images were obtained from the superior aspect of the liver through the pubic symphysis following administration 85 mL of Omnipaque 350 intravenous contrast. Sagittal and coronal reformatted images were obtained on the technologist's workstation. Oral contrast: No This CT examination was performed using dose optimization techniques as appropriate, variously including the following: *Automated exposure control *Adjustment of mA and/or kV according to patient size (this includes techniques or standardized protocols for targeted exams where dose is matched to indication/reason for exam; i.e. extremities or head) *Use of iterative reconstruction technique DLP: 503 mGy centimeter. FINDINGS: LUNG BASES: No gross acute airspace disease. LIVER, GALLBLADDER, AND BILIARY TREE: Liver measures 15 cm. No focal lesion. Portal veins, and intrahepatic portion of the IVC are patent. No intrahepatic biliary ductal dilatation. Cholecystectomy. Common bile duct measures 9 mm. PANCREAS: No focal lesion. No main pancreatic ductal dilatation. 2 mm hypodensity, body of the pancreas. No peripancreatic fluid collection. SPLEEN: 9 cm. No focal lesion. ADRENAL GLANDS: No nodular lesion. KIDNEYS AND URETERS: No hydronephrosis. No gross nephrolithiasis. No enhancing renal mass. 9 mm exophytic fluid density, posterior midportion of the left kidney. Subcentimeter cyst, right kidney. BLADDER: Wall thickening. GASTROINTESTINAL TRACT: Swelling of the mesenteric involving the proximal small bowel loops. There is collapsed appearance of the distal ileal loops. Gas and fluid-filled proximal small bowel loops. There is protrusion of the mid to distal small bowel loops into the umbilical's. Sutures at the hepatic colonic flexure. No pneumatosis intestinalis. There is abundant stool within the large intestine. Subsegmental areas of the intestinal wall thickening in the left hemiabdomen. Trace amount of ascites. No peripheral enhancing fluid collection. No pneumoperitoneum. Hiatal hernia. ABDOMINAL WALL: Fat-containing umbilical and supraumbilical and epigastric hernias. LYMPH NODES: No gross mesenteric or retroperitoneal lymphadenopathy. VASCULAR: Mixed plaques in the distal abdominal aorta wall and iliac arteries without aneurysm or dissection. Prominent pelvic vessels seem to the left adnexa. There is a focal narrowing of the left main renal vein secondary to superior mesenteric artery/abdominal aorta. PELVIC VISCERA: Uterus in in different/retroflexion with heterogeneous enhancing pattern and focal decreased density intramural lesion posterior body of the uterus. There is prominent vessels in the periphery of the uterus and towards the left adnexa. OSSEOUS STRUCTURES: Grade 1 anterolisthesis secondary to degenerative changes at L5-S1 resulting in bilateral neuroforamina stenosis. There is vacuum phenomenon at L5-S1. Bone marrow inhomogeneity. Irregularities in the acetabulum likely related to patient's motion artifact. CT/CT abdomen pelvis w IV con IMPRESSION: Concerning internal hernia, right hemiabdomen with the incomplete/intermittent bowel obstruction. Inflammatory bowel disease such as Crohn's cannot be excluded. Loculated the umbilical and supraumbilical and epigastric mostly fat-containing hernias. Concerning pelvic congestion, left adnexa. Probable uterine fibroid. Inflammatory versus infectious process in the urinary bladder cannot be excluded. Hiatal hernia. Fleischner guidelines were followed. Electronically signed by: Sam Tavarez MD 10/14/2024 09:32 AM EDT Dictated By: Sam Anne MD Signed By: Electronically signed by Sam Bal MD 10/14/24 0932 Radiology Impression Discussion of test interpretation with radiology: I have reviewed the radiologist's reading. Independent Historian Clinical information obtained from an independent historian. History obtained from or confirmed by: EMS (EMS provided additional history and confirmed the history provided by the patient. ) Critical Care Time Critical Care Time Critical Care Time: Yes Total Critical Care Time: 47 Attestation: I spent 47 minutes of Critical Care Time with this patient. This does not include time spent on separately reported billable procedures. Discharge Plan Discharge Clinical Impression: SBO (small bowel obstruction) Patient Disposition: Admitted As Inpatient
[2024-10-14 08:22] LABS: MANUAL DIFF FLAG NO
[2024-10-14 08:24] LABS: Hematocrit 44.4 % (37.0-47.0); Hemoglobin 15.1 g/dl (12.0-16.0); Imm Gran Abs Auto 0.04 X10*3/uL (0.00-0.03); Imm Gran Pct Auto 0.3 % (0.0-0.4); Lymphocytes Absolute Auto 2.5 X10*3/uL (1.2-4.9); Mean Corpuscular HGB Conc 34.0 g/dl (31.0-35.0); Mean Corpuscular Hemoglobin 28.5 pg (27.0-33.0); Mean Corpuscular Volume 83.8 fL (80.0-98.0); NRBC Abs Auto 0.000 X10*3/uL (0.0-0.012); NRBC Pct Auto 0.0 /100WBC (0.0-0.2); Platelet Count 246 X10*3/uL (160-400); Red Blood Count 5.30 X10*6/uL (4.20-5.50); White Blood Count 11.8 X10*3/uL (4.8-10.8)
[2024-10-14 08:40] LABS: Alanine Aminotransferase 14 U/L (0-31); Albumin Level 4.4 g/dL (3.5-5.0); Alkaline Phosphatase 93 U/L (39-117); Anion Gap 14 (12-20); Aspartate Amino Transferase 19 U/L (5-31); Blood Urea Nitrogen 9 mg/dL (9-16); Calcium 9.9 mg/dL (8.4-10.2); Carbon Dioxide 25 mmol/L (22-29); Chloride 104 mmol/L (96-108); Creatinine Clr Calc Pharmacy 69.3; Estimated Glomerular Filt Rate > 60; Magnesium 1.6 mg/dL (1.6-2.6); Potassium 4.1 mmol/L (3.3-5.1); Sodium 139 mmol/L (135-145); Total Protein 7.8 g/dL (6.5-8.0)
[2024-10-14] MEDS: iohexoL 350 MG/ML 100 ML INFUS..BTL IV (09:03)
[2024-10-14 09:27] LABS: Resp Syncy Virus RNA Qual PCR NEGATIVE (Negative); SARS COV2 PCR INHOUSE NEGATIVE (Negative)
--- OUTSIDE RECORDS SUMMARY | 2024-10-14 09:44 | XMS_ITS | Clinical Summary ---
Author Organization [facility] Address [address] [facility] [address] [place] [phone] Phone Care Team Providers Care Emergency Vehicle Operator Name Role Phone Bernadette Harper MD Primary Care Provider [phone] Allergies No known active allergies Medications atorvastatin (LIPITOR) 80 MG tablet Take 80 mg by mouth daily. Active docusate sodium (COLACE) 100 MG capsule Take 100 mg by mouth 2 (two) times a day. Active ferrous sulfate 325 mg (65 mg [employer] [place] iron) tablet Take 325 mg by mouth daily with breakfast. Active insulin lispro protamine-insul in lispro (HUMALOG MIX 75/25) 100 unit/mL (75-25) InPn injection pen Inject 20 Units under the skin 2 (two) times a day with meals. Active lisinopril (PRINIVIL,ZESTR IL) 5 MG tablet Take 5 mg by mouth daily. Active metFORMIN (GLUCOPHAGE) 1000 MG tablet Take 1,000 mg by mouth 2 (two) times a day with meals. Active OXcarbazepine (TRILEPTAL) 600 MG tablet Take 600 mg by mouth 2 (two) times a day. Active polyethylene glycol (MIRALAX) 17 gram packet Take 17 g by mouth daily. Active QUEtiapine (SEROQUEL) 100 MG tablet Take 100 mg by mouth nightly at bedtime. Active sertraline (ZOLOFT) 100 MG tablet Take 200 mg by mouth daily. Active traZODone (DESYREL) 100 MG tablet Take 100 mg by mouth nightly at bedtime. NIGHTLY PRN Active paliperidone palmitate (INVEGA SUSTENNA) 234 mg/1.5 mL Syrg IM injection syringe Inject 234 mg into the muscle every 28 days. Active tamoxifen (NOLVADEX) 20 MG tablet Take 20 mg by mouth daily. Active nicotine (NICODERM CQ) 21 mg/[address] 1 patch onto the skin daily. Active nicotine polacrilex (COMMIT) [address] 4 mg inside cheek as needed for smoking cessation. Active clotrimazole (LOTRIMIN) 1 % cream Apply topically 2 (two) times a day. Active dapagliflozin (FARXIGA) 5 mg tablet Take 5 mg by mouth daily. Active Active Problems Problem Noted Date Diagnosed Date Ductal carcinoma in situ of left breast 08/26/19 21 Family History Medical History Relation Comments Breast cancer Sister Relation Status Comments Sister Social History Tobacco Use Types Packs/Day Years Used Date Smoking Tobacco: Every Day Smokeless Tobacco: Never Alcohol Use Standard Drinks/Week Comments Not Currently 0 (1 standard drink = 0.6 oz pur e alcohol) beer rarely drank Education Answer Date Recorded Are you interested in more education? Not on torie e 07/06/2022 Are you concerned about learning? Not on file 07/06/2022 No 07/06/2022 No 07/06/2022 Digital Access Answer Date Recorded No 08/03/2022 No 08/03/2022 Reliable internet access at home? Not on file 08/03/2022 Device with a working camera? Not on file Comments Unknown Sex and Gender Information Value Date Recorded Sex Assigned at Not on file Legal Sex Female 9:27 AM EDT Gender Identity Not on file Sexual Orientation Not on file Last Filed Vital Signs Vital Sign Reading Time Taken Comments Blood Pressure 161/89 09/27/2020 1:31 PM EDT Pulse 56 09/27/2020 1:31 PM EDT Temperature - - Respiratory Rate 18 07/27/2020 2:45 PM EDT Oxygen Saturation 97% 09/27/2020 1:31 PM EDT Inhaled Oxygen Concentration - - Weight 67.6 kg (149 lb) 09/19/2020 1:52 PM EDT Height - - Body Mass Index - - Plan of Treatment Health Maintenance Due Date Last Done Comments CREATININE LEVEL 1972 LIPID PANEL 1972 POTASSIUM LEVEL 1972 DEPRESSION SCREENING 1984 SMOKING Hx and SMOKELESS TOBACCO SCREENING 1985 HEPATITIS C SCREENING 1990 HIV ONE-TIME SCREENING (18-65 YEARS) 1990 ZOSTER VACCINES (1 of 2) 07/06/1991 PAP SMEAR 1993 COLOGUARD 2017 COLONOSCOPY 2017 COLORECTAL CANCER SCREENING 2017 FIT TEST 2017 FOBT 2017 SIGMOIDOSCOPY 2017 VIRTUAL COLONOSCOPY 2017 PNEUMOCOCCAL VACCINES (50+ years) (3 of 3 - PCV) 05/29/2019 05/28/2018, 11/29/2015 MAMMOGRAM 06/16/2022 06/16/2020, 04/11, 05/03/2020, Additional history exists COVID-19 VACCINE ( season) 2023 06/14/2020, 05/17/2020 Adult Td,Tdap Booster 05/28/2028 05/28/2018 HEPATITIS A VACCINES Aged Out 10/14/2018 No long er eligible based on patient's age to complete this topic HIB VACCINES Aged Out No longer eligi ble based on patient's age to complete this topic MENINGOCOCCAL VACCINES (ACWY) Aged Out No longer eligible based on patient's age to complete this topic MENINGOCOCCAL VACCINES (B) Aged Out N o longer eligible based on patient's age to complete this topic Medical Devices Not on file Procedures Procedure Name Priority Date/Time Associated Diagnosis Comments BI MAMMOGRAM OUTSIDE (NO INTERPRETATION) Routine 06/16/2020 12:00 AM EDT from Last 3 Months or Most Recently Relevant to Health Maintenance Results * Mammogram Outside (No Interpretation) (06/16/2020 12:00 AM EDT) Narrative SYSTEMGENERATED, DOCUMENTATION - 07/11/2020 2:27 PM EDT This study is for PACS storage only and not for interpretation. us Provider Not In System PhD IMG OUTSIDE IMAGING W /OUT INTERPRETATION Final Result from Last 3 Months or Most Recently Relevant to Health Maintenance Insurance C3 ACO C3 ACO C3 ACO C3 ACO C3 ACO [place] [address] [place] [address] [place] [address] [place] [address] [place] [address] [place] [address] C3 ACO Care Teams Emergency Vehicle Operator Relationship Specialty Start Date End Date Bernadette Harper MD [address] [place] [id number] [email or web address] PCP - General Family Medicine 07/07/20 Additional Source Comments The information contained in this document represents components of the legal health record. It is not the complete legal health record.[facility]
--- OUTSIDE RECORDS SUMMARY | 2024-10-14 09:44 | XMS_ITS | Encounter Summary ---
Author Organization [employer] Address [address] [facility] [address] [place] [address] Care Team Providers Care Manager Call Name Role Phone Ana Luisa Bourne GIUSEPPE Primary Care Provider [phone] Geeta Zeng PharmD Unavailable [phone] Encounter Details Date Type Department Care Team (Latest Contact Info) Description 09/27/2024 Results Follow-Up [facility] MEDICINE [address] [place] [address] Lexi Mancera CNM [address] [place] [address] Confirmatory Syphilis Profile Social History Tobacco Use Types Packs/Day Years [...] Answer Date Recorded Patient Health Questionnaire-9 Score 21 08/05/2024 Patient Health Questionnaire-9 Score 08/05/2024 Last PHQ-9: Questionnaire Data Not on file 0 08/05/2024 Housing Stability Answer Date Recorded What is your housing situation today? I have andres brown 09/27/[address] you li ve. Do you have problems with any of the following? None of the above 09/27/2024 Food Insecurity Answer Date Recorded Within the past 12 months, y ou worried that your food would run out before you got money to buy more: Never True 09/27/2024 Within the past 12 months,th e food you bought just didn't last and you didn't have enough money to get more: Never True Transportation Answer Date Recorded In the past 12 months, has l ack of transportation kept you from medical appts, meetings, work or from getting things needed for daily living? No 09/27/2024 Utilities Answer Date Recorded In the past 12 months, has t he electric, gas, oil or water company threatened to shut off services in your home? No 09/27/2024 Depression Answer Date Recorded Patient Health Questionnaire-2 Score 5 08/05/2024 Internet Access Answer Date Recorded Internet Access Q1 Yes 09/27/2024 Internet Access Q2 Not on file 09/27/2024 Comments No Sex and Gender Information Value Date Recorded Sex Assigned at Female 01/07/2022 10:35 AM EDT Legal Sex Female 10:35 AM EDT Gender Identity Female 01/07/2022 10:35 AM EDT Sexual Orientation Don't know 01/07/2022 10 :35 AM EDT documented as of this encounter Plan of Treatment Upcoming Encounters Date Type Department Care Team (Late st Contact Info) Description 10/15/2024 1:45 PM EDT Office Visit [facility] OPTOMETRY [address] [place] [address] TarkaJuli, OD [address] [place] [address] 11/19/2024 9:30 AM EDT Office Visit [facility] CHC MED & PEDS [address] [place] [address] Ana Luisa Bourne, GIUSEPPE [address] [place] [address] documented as of this encounter Goals Goal [...] Assessment Noted Time PHQ-9 Depression Total Score: 21 025 11:29 AM EDT documented as of this encounter Care Teams Manager Call Relationship Specialty Start Date End Date Ana Luisa Bourne FNP [address] [place] [address] PCP - General Family Medicine 11/01/21 Geeta Zeng PharmD [address] [place] [address] Pharmacist Internal Medicine 07/07/23 [facility] 02/17/24 documented as of this encounter
--- OUTSIDE RECORDS SUMMARY | 2024-10-14 09:44 | XMS_ITS | Clinical Summary ---
Author Organization [address] [facility] Address [address] [place] [address] Phone Care Team Providers Care Slot Service Specialist Name Role Phone Ana Luisa Bourne RN [...] PM EDT Office Visit Orthopedic Surgery - [place] [address] [phone] Teodoro Palomino, ROXANN [address] [address] Health Maintenance Due Date Last Done Comments Breast Cancer Screening 1972 Diabetes: Annual GFR (Glomerular Filtration Rate) 1972 Diabetes: Annual Foot Exam 1982 Diabetes: Annual Retina Eye Exam 1982 Zoster Vaccines (1 of 2) 07/06/1991 Cervical Cancer Screening: Pap Smear 1993 Colorectal Cancer Screening: Colonoscopy 02/10/2022 HIV Screening 02/10/2022 Hepatitis C Screening 02/10/2022 Social Influencers of Health Screening 02/10/2022 Depression Screening 03/10/2024 Diabetes: Annual Urine Albumin-Creatinine Ratio (uACR) 04/13/2024 Hypertension/CHF/CAD Annual BMP Blood Test 04/13/2024 COVID-19 Vaccine (4 - Pfizer risk season) 2024 11/27/2023, 12/23/2022, 03/22/2022 Diabetes: Blood Sugar Control Test (HGBA1C) 06/28/2024 12/29/2023 Influenza Vaccine (#1) 2024 , 12/23/2022, 03/22/2022, Additional history exists DTaP,Tdap,and Td Vaccines (3 - Td or [...] topic Insurance MEDICAID - [place] Care Teams Slot Service Specialist Relationship Specialty Start Date End Date Ana Luisa Bourne RN [address] [address] PCP - General 04/23/23
--- NOTE | 2024-10-14 10:52 | PM.HPGS ---
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 Patient reports she had acute onset of abdominal pain early this morning at 3am that awoke her out of sleep. It was diffuse and severe in nature and therefore called EMS. It is associated with bloating, nausea and vomiting. She denies flatus and last BM was yesterday which was normal. Work up in the ED included CBC, BMP, LFTs which was significant for a leukocytosis of 11.8. CT scan abd pelvis was obtained which showed mildly dilated small bowel loops with collapsed distal ileal loops with swelling of the mesenteric involving the proximal small bowel loops. She has history of right colectomy for unresectable serrated polyp in the cecum and laparoscopic cholecystectomy. She denies similar episodes of prior pain. She denies fever, chills, diarrhea, dysuria, hematuria. Review of Systems Constitutional: Constitutional: Denies chills and Denies fever(s) ENT: Denies dizziness Cardiovascular: Cardiovascular: Denies chest pain, Denies palpitations and Denies dyspnea Respiratory: Respiratory: Denies dyspnea Gastrointestinal: Gastrointestinal: Reports as per HPI Genitourinary: Genitourinary: Denies hematuria, Denies dysuria and Denies vaginal discharge Integumentary/Breasts: Skin/Breast: Denies rash and Denies jaundice Neurologic: Denies dizziness Endocrine: Endocrine: Denies palpitations PMFSH Past Medical History Medical History History of syphilis History of syphilis History of ductal carcinoma in situ (DCIS) of breast Anxiety Serrated polyp of colon Cecal polyp Nipple discharge Elevated cholesterol Family history of breast cancer Lobular carcinoma in situ (LCIS) of left breast Ductal carcinoma in situ (DCIS) of breast Hypertension Diabetes mellitus Depression Breast calcification, left Family History Family History Sister History of breast cancer Surgical History Surgical History History of laparoscopic cholecystectomy H/O colonoscopy H/O breast surgery History of tubal ligation Social History Social History Household Members: Children Household Members Other:: son 18 yrs old Housing: Apartment Are you a primary care attendant to a significant other at home: No Do you presently have visiting nurse or other home services: Yes ([facility] bid for meds, [employer] 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) Alcohol intake: never Patient Tobacco Use Status: Current everyday Tobacco user Tobacco use type: Cigarette Cigarette Packs Per Day: 2 Cigarettes Per Day: 40.0 Years Smoked: 30 Smoked in Last 30 Days: Yes Use of substances other than those prescribed or required for medical reasons: Yes Substance Use Type: Crack/Cocaine Substance Use Frequency: Daily Advance Directives: No Advance Directives Information Provided: Yes Do you have a plan to hurt others: No Plan Patient : No service: No Current occupational status: unemployed Sexual orientation: Straight/Heterosexual Gender identity: Female Meds Allergies Allergy/AdvReac Type Severity Reaction Status Date / Time No Known Allergies (No Known Allergy Verified 10/14/24 07:53 Allergies*) Active Medications: Current Medications Acetaminophen (Acetaminophen 325 Mg Tablet) 650 mg PO Q6H PRN PRN Reason: Pain, Mild 1-3,fever,headache Lactated Ringer's (Lr) 1,000 mls @ 100 mls/hr IVCONT .Q10H [facility] Melatonin (Melatonin 3 Mg Tablet) 6 mg PO BEDTIME PRN PRN Reason: Insomnia Morphine Sulfate (Morphine Sulfate 4 Mg/Ml Cartridge) 4 mg IVPUSH Q4H PRN; Protocol PRN Reason: Pain, Severe (Pain Scale 7-10) Ondansetron HCl (Ondansetron Hcl 4 Mg/2 Ml Vial) 4 mg IVPUSH Q8H PRN PRN Reason: Nausea and Vomiting Sodium Chloride (0.9 % Sodium Chloride Flush 3 Ml Syringe) 3 ml IVFLUSH QSHIFT [facility] Home Medications ?Medication ?Instructions ?Recorded ?Confirmed ?Last Taken ?Type atorvastatin 80 mg tablet (Lipitor) 80 mg PO DAILY 05/03/20 10/11/24 Unknown History lisinopril 5 mg tablet 5 mg PO DAILY 05/03/20 10/11/24 Unknown History metformin 1,000 mg tablet 1,000 mg PO BID 05/03/20 10/11/24 Unknown History oxcarbazepine 600 mg tablet 600 mg PO BEDTIME 05/03/20 10/11/24 Unknown History sertraline 100 mg tablet (Zoloft) 200 mg PO DAILY 05/03/20 10/11/24 Unknown History dapagliflozin propanediol 5 mg 1 tab PO QAM diabetes mellitus 01/22/21 10/11/24 Unknown History tablet (Farxiga) polyethylene glycol 3350 17 gram 17 g PO DAILY 04/20/21 10/11/24 Unknown History oral powder packet (Miralax) budesonide-formoterol HFA 80 1 puff inhalation BID 06/07/22 10/11/24 Unknown History mcg-4.5 mcg/actuation aerosol inhaler (Symbicort) topiramate 50 mg tablet (Topamax) 50 mg PO BID 06/07/22 10/11/24 Unknown History trazodone 100 mg tablet 200 mg PO BEDTIME PRN Insomnia 06/07/22 10/11/24 Unknown History ketoconazole 2 % shampoo 2 appl topical DAILY 07/28/23 10/11/24 Unknown History naltrexone 50 mg tablet 50 mg PO DAILY 07/28/23 10/11/24 Unknown History paliperidone 6 mg tablet,extended 12 mg PO QAM 07/28/23 10/11/24 Unknown History release 24 hr (Invega) triamcinolone acetonide 0.1 % 0.1 appl topical DAILY 07/28/23 10/11/24 Unknown History topical cream ammonium lactate 12 % lotion 12 appl topical BEDTIME 12/30/23 10/11/24 Unknown History blood sugar diagnostic (FreeStyle #10 ea 12/30/23 10/11/24 Unknown History Lite Strips) clotrimazole 1 % topical cream 1 appl topical DAILY 12/30/23 10/11/24 Unknown History flash glucose sensor (FreeStyle #1 ea 12/30/23 10/11/24 Unknown History Jaylan 2 Sensor kit) insulin lispro protamine-lispro 100 unit subcut 2XD 12/30/23 10/11/24 Unknown History 100 unit/mL (75-25) subcutaneous susp (Humalog Mix 75-25(U-100)Insuln) lancets 28 gauge (FreeStyle #100 ea 12/30/23 10/11/24 Unknown History Lancets) nicotine 21 mg/24 hr daily 1 patch topical DAILY 10/22/24 08/04/25 Unknown History transdermal patch olanzapine 5 mg tablet 5 mg PO BEDTIME 12/30/23 10/11/24 Unknown History pen needle, diabetic 32 gauge x #1,200 ea 12/30/23 10/11/24 Unknown History (BD Padmini 2nd Gen Pen Needle) quetiapine 100 mg tablet 50 mg PO BEDTIME 04/13/24 10/11/24 Unknown History Physical Exam Vital Signs: Vital Signs: Last Vital Signs Temp 97.2 F 10/14/24 10:33 Pulse 53 10/14/24 10:33 Resp 17 10/14/24 10:33 BP 125/62 10/14/24 10:33 Pulse Ox 98 10/14/24 10:33 O2 Del Method Room Air 10/14/24 10:33 BMI result Body Mass Index 23.0 Const: General: comfortable, no acute distress and alert Orientation/consciousness: patient oriented x3 Resp: Effort & Inspection: normal respiratory effort and able to speak in complete sentences GI: Inspection: Yes distended and Yes scar (mild periumbilical incision) Palpation (GI): Soft to palpation, Tenderness to palpation present (GI) (diffuse tenderness more increased in upper abdomen ) with no rebound tenderness, no guarding and not rigid Percussion: Yes tympanic to percussion Abdomen image:  1. midline periumbilical scar 2. 3. 4. Skin: General skin exam: no rashes or lesions noted and no jaundice Neuro: General: patient oriented x3 and moves all extremities Results Results Labs: Short CBC 10/14/24 Range/Units 08:18 WBC 11.8 H (4.8-10.8) X10*3/uL Hgb 15.1 (12.0-16.0) g/dl Hct 44.4 (37.0-47.0) % Plt Count 246 (160-400) X10*3/uL BMP 10/14/24 08:18 Sodium 139 Potassium 4.1 Chloride 104 Carbon Dioxide 25 BUN 9 Creatinine 0.82 Calcium 9.9 Liver Function 10/14/24 Range/Units 08:18 Total Bilirubin 0.5 (0.0-1.0) mg/dL AST 19 (5-31) U/L ALT 14 (0-31) U/L Alkaline Phosphatase 93 (39-117) U/L Albumin 4.4 (3.5-5.0) g/dL Abdomen CT scan report/results: report reviewed and image reviewed Additional studies: labs reviewed Assessment and Plan (1) SBO (small bowel obstruction): Status: Acute Plan 54 year old female with PMH of diabetes mellitus, HTN, HLD, seizures, 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 CT scan shows mildly dilated small loops, however there is concern for internal hernia as there is some twisting of the mesentery in the RUQ on imaging. She has good air distally in the rectum. She is resting comfortably on exam with moderately distended abdomen but soft with mild to moderate diffuse tenderness. She will be admitted to the surgical service for further treatment of the SBO. She has been made NPO, started on IVF, PRN analgesics and antiemetics. Lactic acid has been ordered as well as SBFT. We did discuss possibility of needing to proceed with laparotomy and lysis of adhesions if the SBFT is positive or she does not improve/worsens. Will hold off on NGT as stomach is not distended on imaging however we did discuss insertion if she has continued vomiting. Patient is in agreement with current plan. Further plan dependent on clinical course. Hospitalist consult for management of medical comorbidities. Quality Stroke Does the patient have a stroke diagnosis?: No VTE Prior VTE?: No VTE Risk Level:: Medical - moderate - high VTE Device Contraindication: N/A - Device Ordered VTE Drug Contraindication: N/A - Med Ordered Procedures Date of Service Date of Service: 10/14/24
--- NOTE | 2024-10-14 12:15 | PM.IMCN ---
History of Present Illness Data of Consult Service Date: 10/14/24 Requesting physician: Carmen Glover Primary Care Provider: [facility] Reason for consult: Depression, IDDM, ?COPD, seizures This is a 54-year-old female with multiple medical problems who presented to the emergency room with complaints of abdominal pain. History was obtained with the assistance of a telemetry registered nurse. Patient had sudden onset of abdominal pain this morning which prompted her to come to the emergency room. In the emergency room she had a CT scan concerning for small-bowel obstruction and was admitted to the surgical service. The hospitalist service was asked to see her consultation for assistance in management of chronic medical conditions. At the time of my evaluation her abdominal pain is beginning to improve. She denies any chest pain or shortness of breath. Review of Systems Review of Systems: Yes all other systems are reviewed and are negative Constitutional: Constitutional: Denies chills and Denies fever(s) Cardiovascular: Cardiovascular: Denies chest pain Gastrointestinal: Gastrointestinal: Reports abdominal pain PMFSH Medical History History of syphilis History of syphilis History of ductal carcinoma in situ (DCIS) of breast Anxiety Serrated polyp of colon Cecal polyp Nipple discharge Elevated cholesterol Family history of breast cancer Lobular carcinoma in situ (LCIS) of left breast Ductal carcinoma in situ (DCIS) of breast Hypertension Diabetes mellitus Depression Breast calcification, left Family History Sister History of breast cancer Surgical History History of laparoscopic cholecystectomy H/O colonoscopy H/O breast surgery History of tubal ligation Social History Household Members: Children Household Members Other:: son 18 yrs old Housing: Apartment Are you a primary animal care attendant to a significant other at home: No Do you presently have visiting nurse or other home services: Yes Alcohol intake: never Patient Tobacco Use Status: Current everyday Tobacco user Tobacco use type: Cigarette Cigarette Packs Per Day: 2 Cigarettes Per Day: 40.0 Years Smoked: 30 e-Cigarette/Vaping Use: Never Used Second Hand Smoke Exposure: No Substance Use Type: Crack/Cocaine service: No Current occupational status: unemployed Sexual orientation: Straight/Heterosexual Gender identity: Female Meds Allergies Allergy/AdvReac Type Severity Reaction Status Date / Time No Known Allergies (No Known Allergy Verified 10/14/24 07:53 Allergies*) Active Medications: Current Medications Acetaminophen (Acetaminophen 325 Mg Tablet) 650 mg PO Q6H PRN PRN Reason: Pain, Mild 1-3,fever,headache Dextrose (Dextrose 50 % 25 Gm/50 Ml Syringe) 25 gm IVPUSH Q15M PRN; Protocol PRN Reason: per Hypoglycemia Standing Ord. Glucose (Glucose Gel 15 Gm Gel..Gram.) 15 gm PO Q15M PRN; Protocol PRN Reason: per Hypoglycemia Standing Ord. Lactated Ringer's (Lr) 1,000 mls @ 100 mls/hr IVCONT .Q10H [facility] Insulin Human Lispro (Insulin Lispro 100 Unit/Ml 3 Ml Vial) 0 unit SUBCUT QIDACHS [facility]; Protocol Melatonin (Melatonin 3 Mg Tablet) 6 mg PO BEDTIME PRN PRN Reason: Insomnia Morphine Sulfate (Morphine Sulfate 4 Mg/Ml Cartridge) 4 mg IVPUSH Q4H PRN; Protocol PRN Reason: Pain, Severe (Pain Scale 7-10) Ondansetron HCl (Ondansetron Hcl 4 Mg/2 Ml Vial) 4 mg IVPUSH Q8H PRN PRN Reason: Nausea and Vomiting Sodium Chloride (0.9 % Sodium Chloride Flush 3 Ml Syringe) 3 ml IVFLUSH QSHIFT [facility] Home Medications ?Medication ?Instructions ?Recorded ?Confirmed ?Last Taken ?Type atorvastatin 80 mg tablet (Lipitor) 80 mg PO DAILY 05/03/20 10/11/24 Unknown History lisinopril 5 mg tablet 5 mg PO DAILY 05/03/20 10/11/24 Unknown History metformin 1,000 mg tablet 1,000 mg PO BID 05/03/20 10/11/24 Unknown History oxcarbazepine 600 mg tablet 600 mg PO BEDTIME 05/03/20 10/11/24 Unknown History sertraline 100 mg tablet (Zoloft) 200 mg PO DAILY 05/03/20 10/11/24 Unknown History dapagliflozin propanediol 5 mg 1 tab PO QAM diabetes mellitus 01/22/21 10/11/24 Unknown History tablet (Farxiga) polyethylene glycol 3350 17 gram 17 g PO DAILY 04/20/21 10/11/24 Unknown History oral powder packet (Miralax) budesonide-formoterol HFA 80 1 puff inhalation BID 06/07/22 10/11/24 Unknown History mcg-4.5 mcg/actuation aerosol inhaler (Symbicort) topiramate 50 mg tablet (Topamax) 50 mg PO BID 06/07/22 10/11/24 Unknown History trazodone 100 mg tablet 200 mg PO BEDTIME PRN Insomnia 06/07/22 10/11/24 Unknown History ketoconazole 2 % shampoo 2 appl topical DAILY 07/28/23 10/11/24 Unknown History naltrexone 50 mg tablet 50 mg PO DAILY 07/28/23 10/11/24 Unknown History paliperidone 6 mg tablet,extended 12 mg PO QAM 07/28/23 10/11/24 Unknown History release 24 hr (Invega) triamcinolone acetonide 0.1 % 0.1 appl topical DAILY 07/28/23 10/11/24 Unknown History topical cream ammonium lactate 12 % lotion 12 appl topical BEDTIME 12/30/23 10/11/24 Unknown History blood sugar diagnostic (FreeStyle #10 ea 12/30/23 10/11/24 Unknown History Lite Strips) clotrimazole 1 % topical cream 1 appl topical DAILY 12/30/23 10/11/24 Unknown History flash glucose sensor (FreeStyle #1 ea 12/30/23 10/11/24 Unknown History Jaylan 2 Sensor kit) insulin lispro protamine-lispro 100 unit subcut 2XD 12/30/23 10/11/24 Unknown History 100 unit/mL (75-25) subcutaneous susp (Humalog Mix 75-25(U-100)Insuln) lancets 28 gauge (FreeStyle #100 ea 12/30/23 10/11/24 Unknown History Lancets) nicotine 21 mg/24 hr daily 1 patch topical DAILY 12/30/23 10/11/24 Unknown History transdermal patch olanzapine 5 mg tablet 5 mg PO BEDTIME 12/30/23 10/11/24 Unknown History pen needle, diabetic 32 gauge x #1,200 ea 12/30/23 10/11/24 Unknown History (BD Padmini 2nd Gen Pen Needle) quetiapine 100 mg tablet 50 mg PO BEDTIME 04/13/24 10/11/24 Unknown History doxycycline hyclate 100 mg tablet 200 mg PO NEEDED PRN infectious 10/14/24 Unknown History disease emtricitabine 200 mg-tenofovir 1 tab PO DAILY 10/14/24 Unknown History disoproxil fumarate 300 mg tablet Physical Exam Vital Signs and Narrative: Vital Signs: Last Vital Signs Temp 97.2 F 10/14/24 10:33 Pulse 53 10/14/24 10:33 Resp 17 10/14/24 10:33 BP 125/62 10/14/24 10:33 Pulse Ox 98 10/14/24 10:33 O2 Del Method Room Air 10/14/24 10:33 BMI result Body Mass Index 23.0 Results Labs 10/15/24 06:09 10/15/24 06:09 Labs: Laboratory Results - last 24 hr 10/14/24 10/14/24 10/14/24 08:18 08:34 11:10 MCV 83.8 MCH 28.5 MCHC 34.0 RDW 13.6 Plt Count 246 MPV 9.9 Immature Gran % (Auto) 0.3 Neut % (Auto) 71.3 Lymph % (Auto) 21.3 Gallia % (Auto) 5.6 Eos % (Auto) 0.9 Baso % (Auto) 0.6 Lymph # (Auto) 2.5 [place] # (Auto) 0.7 Eos # (Auto) 0.1 Baso # (Auto) 0.1 Abs Immat Gran (auto) 0.04 H Absolute Neuts (auto) 8.4 H Absolute Nucleated RBC 0.000 Nucleated RBC % (auto) 0.0 Anion Gap 14 Estim Creat Clear Calc 69.3 Estimated GFR > 60 Random Glucose 261 H Lactic Acid 1.5 Calcium 9.9 Magnesium 1.6 Total Bilirubin 0.5 AST 19 ALT 14 Alkaline Phosphatase 93 Total Protein 7.8 Albumin 4.4 Influenza Type A (PCR) NEGATIVE Influenza Type B (PCR) NEGATIVE RSV RNA Qual (PCR) NEGATIVE SARS-CoV-2 RNA (RT-PCR) NEGATIVE Imaging Radiologist's Impressions: Impressions Abdomen/Pelvis CT 10/14/24 07:58 IMPRESSION: Concerning internal hernia, right hemiabdomen with the incomplete/intermittent bowel obstruction. Inflammatory bowel disease such as Crohn's cannot be excluded. Loculated the umbilical and supraumbilical and epigastric mostly fat-containing hernias. Concerning pelvic congestion, left adnexa. Probable uterine fibroid. Inflammatory versus infectious process in the urinary bladder cannot be excluded. Hiatal hernia. Fleischner guidelines were followed. Electronically signed by: Sam Tavarez MD 10/14/2024 09:32 AM EDT RP Assessment and Plan (1) Diabetes mellitus: Status: Acute Plan This is a 54-year-old Khmer-speaking female history of diabetes, hypertension, HLD, DCIS of the left breast status post lumpectomy and radiation, mood disorder, chronic constipation who presents to the emergency department with abdominal pain found to have concern for small bowel obstruction Small-bowel obstruction Management as per surgical team IDDM no long acting insulin at this time as patient is NPO cover with SSI, follow POCs h/o DCIS of left breast s/p lumpectomy/radiation Continue tamoxifen when med rec completed Mood continue baseline meds when confirmed if tolerating PO Unfortunately the patient does not names of any of the medications that she takes on a regular basis. Her med reconciliation is pending at this time. Thank you for allowing us to participate in the care of this patient. We will follow along with you
--- NOTE | 2024-10-14 13:03 | PC.NURSE ---
Pt has been off unit for bowel obstruction imaging since approx 1100. Medications to be administered upon Pts return.
--- NOTE | 2024-10-14 13:12 | PC.NURSE ---
Addendum entered by Christina Laguerre RN 10/14/24 17:15: Verbal consent received from Pt to speak with Sun at [facility]. Call back placed with no answer. Voicemail was not left d/t Pt privacy. Pt has now been transferred to inpatient room. Original Note: [facility] Sun Blair calls looking for an update on Pt. Pt off the unit at this time and therefore unable to acquire permission from Pt to speak to Sun. Sun advised that Pt unavailable at this time and once permission obtained from Pt this RN will call back. Sun in agreement and provide call back # [phone].
[2024-10-14] MEDS: Lactated Ringers 1,000 ML 100 ML IVCONT ×2 (14:17→21:40)
--- NOTE | 2024-10-14 14:32 | PM.EVENT ---
Event Note Date of Service: 10/14/24 Event Note: Patient seen following SBFT. Contrast appears in colon at 1h 30 min. Patient feels improved with less abdominal pain and is asking for food. Will advance to clear liquids for now. Time Spent With Patient Time: Total time managing care of this patient today ____ minutes.
[2024-10-14 17:02] LABS: Glucose, Whole Blood 326 mg/dL (60-115)
--- NOTE | 2024-10-14 20:17 | PHA.MEDREC ---
Pharmacy Consult ? Medication Reconciliation Pharmacy has attempted the medication reconciliation. Patient is a poor historian. Patient gave a phone number for visiting nurse but she didn't know the nurse's name [phone]. called left message on voicemail. There isn't much claim history. So, attempted to call sister on file Cindy, however phone not in service. Called and spoke to Emergency contact on file Emi over the phone. she didn't have a list of patient medications with her but she confirmed patient has VNA services and [facility]. Emi gave me VNA nurse number Sandeep [phone], however she isn't sure if he is the updated nurse for patient. Attempted to call VNA nurse Sandeep, however it go's straight to voicemail, however voicemail is full. was not able to leave a message. Called Emi back to let her know that I was not able to get through to VNA nurse. She states she will have nurse call me back. Per patient notes, there is a CHD contact Sun [phone]. called left message. Will have morning med rec follow up tomorrow.
[2024-10-14 20:30] LABS: Appearance Urine Clear; Glucose Urine UA >=1000 mg/dL (Negative); PH 7.0 (5.0-9.0); Specific Gravity - Urine >= 1.030 (1.005-1.025); UMIC TRIGGER UACC YES
--- NOTE | 2024-10-14 20:30 | PHA.MEDREC ---
Addendum entered by Phillip Escalante, Santosh 10/15/24 11:06: Reviewed profile and found an Oncology office visit from 10/11/24, utilized that med list to confirm all meds except for Doxycycline and Emtricitabine-tenofovir which were both prescribed and filled in September. Will confirm with pharmacy claim for now. Original Note: Pharmacy Consult ? Medication Reconciliation Pharmacy has attempted the medication reconciliation. Patient is a poor historian. Patient gave a phone number for visiting nurse but she didn't know the nurse's name [phone]. called left message on voicemail. There isn't much claim history. So, attempted to call sister on file Cindy, however phone not in service. Called and spoke to Emergency contact on file Emi over the phone. she didn't have a list of patient medications with her but she confirmed patient has VNA services and CHD. Emi gave me VNA nurse number Sandeep [phone], however she isn't sure if he is the updated nurse for patient. Attempted to call VNA nurse Sandeep, however it go's straight to voicemail and voicemail was full. was not able to leave a message. Called Emi back to let her know that I was not able to get through to VNA nurse. She states she will have nurse call me back. Per patient notes, there is a [facility] contact Sun [phone]. called left message. Will have morning med rec follow up tomorrow.
[2024-10-14 20:36] LABS: Glucose, Whole Blood 195 mg/dL (60-115)
[2024-10-14] MEDS: 0.9 % Sodium Chloride Flush 3 ML SYRINGE IVFLUSH (21:32)
[2024-10-15 00:38] VITALS: RESP 16
[2024-10-15 03:17] VITALS: BP 108/61; PULSE 59; RESP 18; TEMP 36.7; O2SAT 98
--- NOTE | 2024-10-15 04:24 | PC.NURSE ---
Handoff report given to oncoming RN at 03:45.
[2024-10-15] MEDS: Lactated Ringers 1,000 ML 100 ML IVCONT (05:58)
[2024-10-15 06:35] LABS: MANUAL DIFF FLAG NO
--- NOTE | 2024-10-15 06:54 | P.PNGS_ITS ---
Subjective Subjective Date of Service: 10/15/24 <Valentina Conklin - Last Filed: 10/15/24 07:40> 10/15/24 <Carmen Glover PA-C - Last Filed: 10/15/24 07:54> 10/15/24 <Nithin Welsh MD - Last Filed: 10/15/24 09:03> Interval history: Pt is alert. Over night she had pain that was rated a 5/10 and she received pain medication. This morning she continues to report pain, and coughing a few times but denies vomiting, chills, fevers, chest pain. She states she has passed a BM last night. She has been on a clear liquid diet. Pt notes she has a preference for surgery if possible. Upon examination, abdomen is nondistended but tender and elicts pain 4/10 in all quadrants except LUQ. WBC have decreased from 11.8 to 9.7 which is WNL. <Valentina Conklin - Last Filed: 10/15/24 07:40> Physical Exam 2 Vital Signs: Vital Signs: Last Vital Signs Temp 98.1 F 10/15/24 03:17 Pulse 59 10/15/24 03:17 Resp 18 10/15/24 03:17 BP 108/61 10/15/24 03:17 Pulse Ox 98 10/15/24 03:17 O2 Del Method Room Air 10/15/24 03:17 BMI result Body Mass Index 22.7 <Valentina Conklin - Last Filed: 10/15/24 07:40> Const: General: comfortable, no acute distress and alert <Carmen Glover PA-C - Last Filed: 10/15/24 07:54> Orientation/consciousness: patient oriented x3 <ABHINAV Mccray Last Filed: 10/15/24 07:54> Resp: Effort & Inspection: normal respiratory effort <ABHINAV Mccray Last Filed: 10/15/24 07:54> GI: Inspection: No distended <ABHINAV Mccray Last Filed: 10/15/24 07:54> Palpation (GI): Soft to palpation, Tenderness to palpation present (GI) (mild upper ) and no guarding <Carmen Glover PA-C - Last Filed: 10/15/24 07:54> Skin: General skin exam: no rashes or lesions noted <Carmen Glover PA-C - Last Filed: 10/15/24 07:54> Neuro: General: patient oriented x3 and moves all extremities <Carmen Glover PA-C - Last Filed: 10/15/24 07:54> Objective Data Active Medications Acetaminophen (Acetaminophen 325 Mg Tablet) 650 mg PO Q6H PRN PRN Reason: Pain, Mild 1-3,fever,headache Dextrose (Dextrose 50 % 25 Gm/50 Ml Syringe) 25 gm IVPUSH Q15M PRN; Protocol PRN Reason: per Hypoglycemia Standing Ord. Glucose (Glucose Gel 15 Gm Gel..Gram.) 15 gm PO Q15M PRN; Protocol PRN Reason: per Hypoglycemia Standing Ord. Lactated Ringer's (Lr) 1,000 mls @ 100 mls/hr IVCONT .Q10H [facility] Last Admin: 10/15/24 05:58 Dose: 100 mls/hr Documented By: FCO Insulin Human Lispro (Insulin Lispro 100 Unit/Ml 3 Ml Vial) 0 unit SUBCUT QIDACHS [facility]; Protocol Last Admin: 10/14/24 21:33 Dose: 2 unit Documented By: REG Melatonin (Melatonin 3 Mg Tablet) 6 mg PO BEDTIME PRN PRN Reason: Insomnia Last Admin: 10/14/24 21:38 Dose: 6 mg Documented By: REG Morphine Sulfate (Morphine Sulfate 4 Mg/Ml Cartridge) 4 mg IVPUSH Q4H PRN; Protocol PRN Reason: Pain, Severe (Pain Scale 7-10) Last Admin: 10/14/24 18:02 Dose: 4 mg Documented By: LEO Ondansetron HCl (Ondansetron Hcl 4 Mg/2 Ml Vial) 4 mg IVPUSH Q8H PRN PRN Reason: Nausea and Vomiting Sodium Chloride (0.9 % Sodium Chloride Flush 3 Ml Syringe) [facility] Last Admin: 10/14/24 21:32 Dose: 3 ml Documented By: REG <Valentina Conklin - Last Filed: 10/15/24 07:40> Labs CBC & Chem 7: 10/15/24 06:09 10/15/24 06:09 <Valentina Conklin - Last Filed: 10/15/24 07:40> Labs: Laboratory Results - last 24 hr 10/14/24 10/14/24 10/14/24 08:18 08:34 11:10 MCV 83.8 MCH 28.5 MCHC 34.0 RDW 13.6 Plt Count 246 MPV 9.9 Immature Gran % (Auto) 0.3 Neut % (Auto) 71.3 Lymph % (Auto) 21.3 [place] % (Auto) 5.6 Eos % (Auto) 0.9 Baso % (Auto) 0.6 Lymph # (Auto) 2.5 [place] # (Auto) 0.7 Eos # (Auto) 0.1 Baso # (Auto) 0.1 Abs Immat Gran (auto) 0.04 H Absolute Neuts (auto) 8.4 H Absolute Nucleated RBC 0.000 Nucleated RBC % (auto) 0.0 Anion Gap 14 Estim Creat Clear Calc 69.3 Estimated GFR > 60 POC Glucose Random Glucose 261 H Lactic Acid 1.5 Calcium 9.9 Magnesium 1.6 Total Bilirubin 0.5 AST 19 ALT 14 Alkaline Phosphatase 93 Total Protein 7.8 Albumin 4.4 Urine Color Urine Appearance Urine pH Ur Specific [place] Urine Protein Urine Glucose (UA) Urine Ketones Urine Blood Urine Nitrite Ur Leukocyte Esterase Urine RBC Urine WBC Ur Squamous Epith Cells Urine Bacteria Hyaline Casts Influenza Type A (PCR) NEGATIVE Influenza Type B (PCR) NEGATIVE RSV RNA Qual (PCR) NEGATIVE SARS-CoV-2 RNA (RT-PCR) NEGATIVE 10/14/24 10/14/24 10/14/24 16:58 20:04 20:20 MCV MCH MCHC RDW Plt Count MPV Immature Gran % (Auto) Neut % (Auto) Lymph % (Auto) [place] % (Auto) Eos % (Auto) Baso % (Auto) Lymph # (Auto) [place] # (Auto) Eos # (Auto) Baso # (Auto) Abs Immat Gran (auto) Absolute Neuts (auto) Absolute Nucleated RBC Nucleated RBC % (auto) Anion Gap Estim Creat Clear Calc Estimated GFR POC Glucose 326 H 195 H Random Glucose Lactic Acid Calcium Magnesium Total Bilirubin AST ALT Alkaline Phosphatase Total Protein Albumin Urine Color Yellow Urine Appearance Clear Urine pH 7.0 Ur Specific [place] >= 1.030 H Urine Protein 30 (1+) H Urine Glucose (UA) >=1000 H Urine Ketones Negative Urine Blood Negative Urine Nitrite Negative Ur Leukocyte Esterase Negative Urine RBC 0-2 Urine WBC 0-5 Ur Squamous Epith Cells 0-2 Urine Bacteria 1+ Hyaline Casts 0-2 Influenza Type A (PCR) Influenza Type B (PCR) RSV RNA Qual (PCR) SARS-CoV-2 RNA (RT-PCR) <Valentina Cookbandar - Last Filed: 10/15/24 07:40> Procedures Date of Service Date of Service: 10/15/24 <Valentina Alvaradomelody - Last Filed: 10/15/24 07:40> 10/15/24 <Carmen Glover PA-C - Last Filed: 10/15/24 07:54> 10/15/24 <Nithin Welsh MD - Last Filed: 10/15/24 09:03> Progress Note: A&P Assessment and plan (1) SBO (small bowel obstruction): Status: Acute <Valentina Cookbandar - Last Filed: 10/15/24 07:40> Assessment and Plan: 54 yo F with a PMH significant for DM, HTN, and HLD and PSH significant for 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 Patient is doing better with decreased pain, no vomiting, no leukocytosis, and BM present. SBFT showed normal small bowel and given the patient is passing bowel movements and does not have any vomiting I do not think there is an obstruction. 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 Patient is doing better with decreased pain, no vomiting, no leukocytosis, and BM present. SBFT showed normal small bowel and given the patient is passing bowel movements and does not have any vomiting I do not think there is an obstruction. Advance diet to soft solids Encourage patient to ambulate Agree with above assessment and plan by Katerin MS-3. SBFT yesterday showed contrast in colon at 1h 30 min. She reports pain at upper abdomen/epigastric area but improved. Shes tolerating clear liquids and now with BMs. VSS. Abd exam benign, softly distended with mild upper abd tenderness. Will advance to solid diet, encouraged to ambulate halls. Will reassess later today, if tolerating food without worsening symptoms, stable for discharge to home. 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 Patient is doing better with decreased pain, no vomiting, no leukocytosis, and BM present. SBFT showed normal small bowel and given the patient is passing bowel movements and does not have any vomiting I do not think there is an obstruction. Advance diet to soft solids Encourage patient to ambulate Agree with above assessment and plan by Katerin MS-3. SBFT yesterday showed contrast in colon at 1h 30 min. She reports pain at upper abdomen/epigastric area but improved. Shes tolerating clear liquids and now with BMs. VSS. Abd exam benign, softly distended with mild upper abd tenderness. Will advance to solid diet, encouraged to ambulate halls. Will reassess later today, if tolerating food without worsening symptoms, stable for discharge to home. Patient seen and examined and agree with the above assessment and plan. Small- bowel follow-through reviewed, determined to be normal with no evidence of bowel obstruction. Agree with plan to advance diet with possible discharge if tolerated. <Nithin Welsh MD - Last Filed: 10/15/24 09:03> Time Spent With Patient Time: Total time managing care of this patient today ____ minutes. <Valentina Conklin - Last Filed: 10/15/24 07:40> Quality Stroke Does the patient have a stroke diagnosis?: No <Valentina Conklin - Last Filed: 10/15/24 07:40> VTE Prior VTE?: No <Valentina Conklin - Last Filed: 10/15/24 07:40> VTE Risk Level:: Medical - moderate - high <Valentina Conklin - Last Filed: 10/15/24 07:40> VTE Device Contraindication: N/A - Device Ordered <Valentina Conklin - Last Filed: 10/15/24 07:40> VTE Drug Contraindication: N/A - Med Ordered <Valentina Conklin - Last Filed: 10/15/24 07:40>
[2024-10-15 07:07] LABS: Anion Gap 13 (12-20); Blood Urea Nitrogen 6 mg/dL (9-16); Carbon Dioxide 24 mmol/L (22-29); Chloride 107 mmol/L (96-108); Creatinine Clr Calc Pharmacy 96.3; Estimated Glomerular Filt Rate > 60; Potassium 4.1 mmol/L (3.3-5.1); Sodium 140 mmol/L (135-145)
[2024-10-15 07:10] LABS: Hematocrit 45.3 % (37.0-47.0); Hemoglobin 14.5 g/dl (12.0-16.0); Imm Gran Abs Auto 0.04 X10*3/uL (0.00-0.03); Imm Gran Pct Auto 0.4 % (0.0-0.4); Lymphocytes Absolute Auto 2.5 X10*3/uL (1.2-4.9); Mean Corpuscular HGB Conc 32.0 g/dl (31.0-35.0); Mean Corpuscular Hemoglobin 28.0 pg (27.0-33.0); Mean Corpuscular Volume 87.5 fL (80.0-98.0); NRBC Abs Auto 0.000 X10*3/uL (0.0-0.012); NRBC Pct Auto 0.0 /100WBC (0.0-0.2); Platelet Count 225 X10*3/uL (160-400); Red Blood Count 5.18 X10*6/uL (4.20-5.50); White Blood Count 9.7 X10*3/uL (4.8-10.8)
[2024-10-15 07:14] LABS: Calcium 9.1 mg/dL (8.4-10.2)
[2024-10-15 08:00] VITALS: BP 110/58; PULSE 95; RESP 16; TEMP 36.6; O2SAT 95
[2024-10-15 08:39] LABS: Glucose, Whole Blood 198 mg/dL (60-115)
--- NOTE | 2024-10-15 10:04 | HO.PM.IMPN ---
Subjective Subjective Date of Service: 10/15/24 Interval History: Seen and examined this morning Patient awake, alert, appears comfortable had BM, tolerating liquids Review of Systems Review of Systems: Yes all other systems are reviewed and are negative Physical Exam Vital Signs: Vital Signs: Last Vital Signs Temp 97.9 F 10/15/24 08:00 Pulse 95 10/15/24 08:00 Resp 16 10/15/24 08:00 BP 110/58 L 10/15/24 08:00 Pulse Ox 95 10/15/24 08:00 O2 Del Method Room Air 10/15/24 08:00 BMI result Body Mass Index 22.7 Const: General: cooperative, comfortable, no acute distress, alert and awake Nutritional Appearance: average body habitus Resp: Effort & Inspection: normal respiratory effort, able to speak in complete sentences, no respiratory distress and no use of accessory muscles Cardio: Rate: regular rate Neuro: Other: grossly nonfocal Objective Data Active Medications Acetaminophen (Acetaminophen 325 Mg Tablet) 650 mg PO Q6H PRN PRN Reason: Pain, Mild 1-3,fever,headache Dextrose (Dextrose 50 % 25 Gm/50 Ml Syringe) 25 gm IVPUSH Q15M PRN; Protocol PRN Reason: per Hypoglycemia Standing Ord. Glucose (Glucose Gel 15 Gm Gel..Gram.) 15 gm PO Q15M PRN; Protocol PRN Reason: per Hypoglycemia Standing Ord. Lactated Ringer's (Lr) 1,000 mls @ 100 mls/hr IVCONT .Q10H [facility] Last Admin: 10/15/24 05:58 Dose: 100 mls/hr Documented By: FCO Insulin Human Lispro (Insulin Lispro 100 Unit/Ml 3 Ml Vial) 0 unit SUBCUT QIDACHS [facility]; Protocol Last Admin: 10/15/24 09:13 Dose: 2 unit Documented By: LEO Melatonin (Melatonin 3 Mg Tablet) 6 mg PO BEDTIME PRN PRN Reason: Insomnia Last Admin: 10/14/24 21:38 Dose: 6 mg Documented By: REG Morphine Sulfate (Morphine Sulfate 4 Mg/Ml Cartridge) 4 mg IVPUSH Q4H PRN; Protocol PRN Reason: Pain, Severe (Pain Scale 7-10) Last Admin: 10/14/24 18:02 Dose: 4 mg Documented By: LEO Ondansetron HCl (Ondansetron Hcl 4 Mg/2 Ml Vial) 4 mg IVPUSH Q8H PRN PRN Reason: Nausea and Vomiting Sodium Chloride (0.9 % Sodium Chloride Flush 3 Ml Syringe) 3 ml IVFLUSH QSHIFT [facility] Last Admin: 10/15/24 09:14 Dose: Not Given Documented By: LEO Non-Admin Reason: IV Running Labs 10/15/24 06:09 10/15/24 06:09 Labs: Laboratory Results - last 24 hr 10/14/24 10/14/24 10/14/24 11:10 16:58 20:04 MCV MCH MCHC RDW Plt Count MPV Immature Gran % (Auto) Neut % (Auto) Lymph % (Auto) [place] % (Auto) Eos % (Auto) Baso % (Auto) Lymph # (Auto) [place] # (Auto) Eos # (Auto) Baso # (Auto) Abs Immat Gran (auto) Absolute Neuts (auto) Absolute Nucleated RBC Nucleated RBC % (auto) Anion Gap Estim Creat Clear Calc Estimated GFR POC Glucose 326 H 195 H Random Glucose Lactic Acid 1.5 Calcium Urine Color Urine Appearance Urine pH Ur Specific [place] Urine Protein Urine Glucose (UA) Urine Ketones Urine Blood Urine Nitrite Ur Leukocyte Esterase Urine RBC Urine WBC Ur Squamous Epith Cells Urine Bacteria Hyaline Casts 10/14/24 10/15/24 10/15/24 20:20 06:09 08:35 MCV 87.5 MCH 28.0 MCHC 32.0 RDW 13.6 Plt Count 225 MPV 10.6 Immature Gran % (Auto) 0.4 Neut % (Auto) 64.7 Lymph % (Auto) 26.1 [place] % (Auto) 6.6 Eos % (Auto) 1.3 Baso % (Auto) 0.9 Lymph # (Auto) 2.5 [place] # (Auto) 0.6 Eos # (Auto) 0.1 Baso # (Auto) 0.1 Abs Immat Gran (auto) 0.04 H Absolute Neuts (auto) 6.3 Absolute Nucleated RBC 0.000 Nucleated RBC % (auto) 0.0 Anion Gap 13 Estim Creat Clear Calc 96.3 Estimated GFR > 60 POC Glucose 198 H Random Glucose 178 H Lactic Acid Calcium 9.1 D Urine Color Yellow Urine Appearance Clear Urine pH 7.0 Ur Specific [place] >= 1.030 H Urine Protein 30 (1+) H Urine Glucose (UA) >=1000 H Urine Ketones Negative Urine Blood Negative Urine Nitrite Negative Ur Leukocyte Esterase Negative Urine RBC 0-2 Urine WBC 0-5 Ur Squamous Epith Cells 0-2 Urine Bacteria 1+ Hyaline Casts 0-2 Assessment and Plan (1) SBO (small bowel obstruction): Status: Acute Plan This is a 54-year-old Yakut-speaking female history of diabetes, hypertension, HLD, DCIS of the left breast status post lumpectomy and radiation, mood disorder, chronic constipation who presents to the emergency department with abdominal pain found to have concern for small bowel obstruction Small-bowel obstruction Management as per surgical team IDDM no long acting insulin at this time as patient on clear liquids cover with SSI, follow POCs h/o DCIS of left breast s/p lumpectomy/radiation Continue tamoxifen when med rec completed Mood continue baseline meds when confirmed if tolerating PO Unfortunately the patient does not names of any of the medications that she takes on a regular basis. Her med reconciliation is pending at this time. per pharmacy no accurate claim history to use, have not been able to get a hold of anyone who has information about her medication list. They will continue to work on obtaining accurate medication list Thank you for allowing us to participate in the care of this patient. We will follow along with you Quality Stroke Does the patient have a stroke diagnosis?: No VTE Prior VTE?: No VTE Risk Level:: Medical - moderate - high VTE Device Contraindication: N/A - Device Ordered VTE Drug Contraindication: N/A - Med Ordered
[2024-10-15 11:32] LABS: Glucose, Whole Blood 246 mg/dL (60-115)
--- NOTE | 2024-10-15 14:10 | PM.DS ---
DS: Providers Provider Date of Service: 10/15/24 Date of admission: 10/14/24 10:48 Date of discharge: 10/15/24 Primary care physician: GIUSEPPE Clark Attending physician on admission: Nithin Welsh Consults: 10/14/24 11:14 Consult to Hospitalist Routine Comment: Consulting Provider: [facility] Reason For Exam: depression, IDDM, ?COPD, seizures 10/14/24 17:42 Addiction Medicine Provider Routine Consulting Provider: Addiction Covering Reason for consultation: use of cocoain Has provider been notified: Yes Attending physician on discharge: Nithin Welsh DS: Diagnosis Discharge Diagnosis (1) SBO (small bowel obstruction): Status: Acute DS: Summary Hospital Course Hospital Course: HPI AT ADMISSION: Hodan Murrieta is a 54 year old female with PMH of diabetes mellitus, HTN, HLD, seizures, 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 Patient reports she had acute onset of abdominal pain early this morning at 3am that awoke her out of sleep. It was diffuse and severe in nature and therefore called EMS. It is associated with bloating, nausea and vomiting. She denies flatus and last BM was yesterday which was normal. Work up in the ED included CBC, BMP, LFTs which was significant for a leukocytosis of 11.8. CT scan abd pelvis was obtained which showed mildly dilated small bowel loops with collapsed distal ileal loops with swelling of the mesenteric involving the proximal small bowel loops. She has history of right colectomy for unresectable serrated polyp in the cecum and laparoscopic cholecystectomy. She denies similar episodes of prior pain. She denies fever, chills, diarrhea, dysuria, hematuria. HOSPITAL COURSE: She was admitted to the surgical service for further treatment of the SBO. There was concern for internal hernia as there was some twisting of the mesentery in the RUQ on imaging however she had good air distally in the rectum and an overall benign exam. She was made NPO, started on IVF, PRN analgesics and antiemetics. Lactic acid was normal and SBFT was ordered. NGT was held as stomach is not distended on imaging and she had cessation of her vomiting. Hospitalist consult for management of medical comorbidities. SBFT showed contrast in the colon at 1h 30 min and normal small bowel caliber. She felt improved. She was advanced to clear liquids. The following day she began to move her bowels. She was tolerating clear liquids and was advanced to solids. She was ambulated. She was reassessed later in the day and was tolerating a solid diet without nausea, vomiting, or any abdominal pain. She had good GI function. Her abdomen was soft and nontender. She felt ready for discharge and was discharged to home on 10/15/24 in stable condition. She is to follow up with her PCP. Status at Discharge Functional status at discharge: independent ambulation Overall status at discharge: patient is progressing back to baseline Time Attestation Discharge Coordination Time (in mins): 30 Quality: Safe Use of Opioids Does Pt have an Active Cancer Diagnosis on the Problem List?: No Quality: Stroke Does the patient have a stroke diagnosis?: No Physical Exam Vital Signs: Vital Signs: Last Vital Signs Temp 97.9 F 10/15/24 08:00 Pulse 95 10/15/24 08:00 Resp 16 10/15/24 08:00 BP 110/58 L 10/15/24 08:00 Pulse Ox 95 10/15/24 08:00 O2 Del Method Room Air 10/15/24 08:00 BMI result Body Mass Index 22.7 Const: General: comfortable, no acute distress and alert Orientation/consciousness: patient oriented x3 Resp: Effort & Inspection: normal respiratory effort GI: Inspection: Yes distended (mild ) Palpation (GI): Soft to palpation, nontender, no guarding and not rigid Percussion: Yes normal to percussion Skin: General skin exam: no rashes or lesions noted Neuro: General: patient oriented x3 and moves all extremities DS: Data Data Completed and Pending Completed studies during hospitalization [Text1]: Procedures Excision of Transverse Colon, Open Approach (05/01/21) Labs on day of discharge: Laboratory Results - last 24 hr 10/14/24 10/14/24 10/14/24 16:58 20:04 20:20 WBC RBC Hgb Hct MCV MCH MCHC RDW Plt Count MPV Immature Gran % (Auto) Neut % (Auto) Lymph % (Auto) [place] % (Auto) Eos % (Auto) Baso % (Auto) Lymph # (Auto) [place] # (Auto) Eos # (Auto) Baso # (Auto) Abs Immat Gran (auto) Absolute Neuts (auto) Absolute Nucleated RBC Nucleated RBC % (auto) Sodium Potassium Chloride Carbon Dioxide Anion Gap BUN Creatinine Estim Creat Clear Calc Estimated GFR POC Glucose 326 H 195 H Random Glucose Calcium Urine Color Yellow Urine Appearance Clear Urine pH 7.0 Ur Specific [place] >= 1.030 H Urine Protein 30 (1+) H Urine Glucose (UA) >=1000 H Urine Ketones Negative Urine Blood Negative Urine Nitrite Negative Ur Leukocyte Esterase Negative Urine RBC 0-2 Urine WBC 0-5 Ur Squamous Epith Cells 0-2 Urine Bacteria 1+ Hyaline Casts 0-2 10/15/24 10/15/24 10/15/24 06:09 08:35 11:19 WBC 9.7 RBC 5.18 Hgb 14.5 Hct 45.3 MCV 87.5 MCH 28.0 MCHC 32.0 RDW 13.6 Plt Count 225 MPV 10.6 Immature Gran % (Auto) 0.4 Neut % (Auto) 64.7 Lymph % (Auto) 26.1 [place] % (Auto) 6.6 Eos % (Auto) 1.3 Baso % (Auto) 0.9 Lymph # (Auto) 2.5 [place] # (Auto) 0.6 Eos # (Auto) 0.1 Baso # (Auto) 0.1 Abs Immat Gran (auto) 0.04 H Absolute Neuts (auto) 6.3 Absolute Nucleated RBC 0.000 Nucleated RBC % (auto) 0.0 Sodium 140 Potassium 4.1 Chloride 107 Carbon Dioxide 24 Anion Gap 13 BUN 6 L Creatinine 0.59 Estim Creat Clear Calc 96.3 Estimated GFR > 60 POC Glucose 198 H 246 H Random Glucose 178 H Calcium 9.1 D Urine Color Urine Appearance Urine pH Ur Specific [place] Urine Protein Urine Glucose (UA) Urine Ketones Urine Blood Urine Nitrite Ur Leukocyte Esterase Urine RBC Urine WBC Ur Squamous Epith Cells Urine Bacteria Hyaline Casts Discharge Plan Discharge Anticipated Discharge Date/Time: 10/15/24 12:45 Patient Disposition: Home, Self-Care Discharge Diagnosis: SBO Referrals: [facility] [Physician, Medical] - 1 Week Discharge Medications: Continued ferrous sulfate 325 mg (65 mg iron) Tablet 325 mg PO DAILY Qty: 60 7RF dapagliflozin propanediol [Farxiga] 5 mg tablet 1 tab PO QAM quetiapine 100 mg tablet 50 mg PO BEDTIME tamoxifen 20 mg Tablet 20 mg PO DAILY Qty: 90 4RF polyethylene glycol 3350 [Miralax] 17 gram Powder In Packet 17 g PO DAILY albuterol sulfate [ProAir HFA] 90 mcg/actuation HFA aerosol inhaler 2 puff inhalation Q4-6H PRN (Reason: shortness of breath or wheezing) Qty: 6.7 0RF doxycycline hyclate 100 mg tablet 200 mg PO NEEDED MDD 2 tabs/24h PRN (Reason: infectious disease) Rx Instructions: TAKE 2 TABLETS BY MOUTH UP TO 72 HOURS AFTER SEX FOR INFECTION PREVENT. DO NOT EXCEED 2 TABLETS IN 24 HOURS emtricitabine-tenofovir (TDF) 200-300 mg tablet 1 tab PO DAILY atorvastatin [Lipitor] 80 mg tablet 80 mg PO DAILY lisinopril 5 mg tablet 5 mg PO DAILY metformin 1,000 mg tablet 1,000 mg PO BID oxcarbazepine 600 mg tablet 600 mg PO BEDTIME sertraline [Zoloft] 100 mg tablet 200 mg PO DAILY trazodone 100 mg tablet 200 mg PO BEDTIME PRN (Reason: Insomnia) topiramate [Topamax] 50 mg tablet 50 mg PO BID budesonide-formoterol [Symbicort] 80-4.5 mcg/actuation HFA aerosol inhaler 1 puff inhalation BID naltrexone 50 mg tablet 50 mg PO DAILY paliperidone [Invega] 6 mg tablet extended release 24hr 12 mg PO DAILY triamcinolone acetonide 0.1 % cream 0.1 appl topical DAILY ketoconazole 2 % shampoo 2 appl topical DAILY ammonium lactate 12 % lotion 12 appl topical BEDTIME (DME) FreeStyle Jaylan 2 Sensor Kit See Rx Instructions .ROUTE Q2W Qty: 1 Rx Instructions: As directed olanzapine 5 mg tablet 5 mg PO BEDTIME clotrimazole 1 % cream 1 appl topical DAILY (DME) pen needle, diabetic [BD Padmini 2nd Gen Pen Needle] 32 gauge x needle See Rx Instructions .ROUTE BID Qty: 1200 Rx Instructions: As directed Humalog Mix 75-25(U-100)Insuln 100 unit/mL (75-25) suspension 100 unit subcut BID nicotine 21 mg/24 hr patch 24 hour 1 patch topical DAILY (DME) lancets [FreeStyle Lancets] 28 gauge misc See Rx Instructions .ROUTE BID Qty: 100 Rx Instructions: As directed (DME) FreeStyle Lite Strips Strip See Rx Instructions .ROUTE BID Qty: 10 Rx Instructions: As directed bisacodyl [Dulcolax (bisacodyl)] 5 mg tablet,delayed release (DR/EC) 10 mg PO BEDTIME Qty: 180 4RF magnesium hydroxide [Milk of Magnesia] 400 mg/5 mL suspension 10 ml PO DAILY PRN (Reason: constipation) Qty: 355 0RF docusate sodium [Colace] 100 mg capsule 100 mg PO BID Qty: 90 2RF Discharge Orders: Discharge Order (Routine); Ordered 10/15/24 Ordered By: Carmen Glover Diet: Diabetic diet Activity on Discharge: As tolerated Stand Alone Forms: Patient Portal Discharge page Print Language: Serbian Activity Restrictions/Additional Instructions: Resume all your home medications. Follow up with your PCP. Call Your Doctor If: ? ? -Your temperature exceeds 101.5? F? ? ? -You experience excessive pain or swelling ? ? -You have an unexpected reaction to medication ? ? -You experience continued vomiting/nausea Care Plan Goals: Return to baseline health and resume normal activities. Health Concerns: Small bowel obstruction hx of right colon resection, laparoscopic cholecystectomy diabetes mellitus, HTN Plan of Treatment: IV fluid resuscitation, small bowel follow through Diet as tolerated Follow up with PCP Assessment: Resolved
--- NOTE | 2024-10-15 14:46 | MHC.CM.PN ---
Addendum entered by Casandra Tejada 10/15/24 14:51: 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
== END 2024-10-15 15:29 | disposition home or self-care (01) | DRG 247 ==
LOC: HO.ED 10:46 → HO.EDOVER 11:04 → HO.S3 16:23
PROVIDERS: Physician Assistant Medical; Admitting Provider Physician Assistant Surgical; Emergency Provider Emergency Medicine; PCP Registered Nurse; Visit Provider Physician Assistant Surgical
DX: K56.609 Unspecified intestinal obstruction, unspecified as to partial versus complete obstruction (principal); C50.912 Malignant neoplasm of unspecified site of left female breast; F17.210 Nicotine dependence, cigarettes, uncomplicated; F39 Unspecified mood [affective] disorder; Z20.822 Contact with and (suspected) exposure to COVID-19; Z71.6 Tobacco abuse counseling; Z79.4 Long term (current) use of insulin; Z79.84 Long term (current) use of oral hypoglycemic drugs; Z79.810 Long term (current) use of selective estrogen receptor modulators (SERMs); Z79.899 Other long term (current) drug therapy
CPT/HCPCS: 36415; 74177; 74250; 80048; 80053; 81001; 82947; 83605; 83735; 85025; 87637; 99285; J2270; J2405; J7120; Q9967

== ENCOUNTER → 2024-10-14 08:23 | Outpatient (BNV) | payer MEDICAID, SELFPAY | PROVIDERS: Visit Provider Radiology Diagnostic Radiology | DX: K44.9 Diaphragmatic hernia without obstruction or gangrene (principal); K56.609 Unspecified intestinal obstruction, unspecified as to partial versus complete obstruction | CPT/HCPCS: 74177; 74250 ==

== ENCOUNTER → 2024-10-14 10:48 | Outpatient (BNV) | payer MEDICAID, SELFPAY | PROVIDERS: Admitting Provider Physician Assistant Surgical; Emergency Provider Emergency Medicine; Visit Provider Physician Assistant Surgical | DX: K56.609 Unspecified intestinal obstruction, unspecified as to partial versus complete obstruction (principal) | CPT/HCPCS: 99222; 99499 ==

== ENCOUNTER → 2024-10-14 10:48 | Outpatient (BNV) | payer MEDICAID, SELFPAY | PROVIDERS: Admitting Provider Physician Assistant Surgical; Emergency Provider Emergency Medicine; Visit Provider Physician Assistant Medical | DX: E11.9 Type 2 diabetes mellitus without complications (principal); K56.609 Unspecified intestinal obstruction, unspecified as to partial versus complete obstruction | CPT/HCPCS: 99223; 99232 ==

== ENCOUNTER 2024-11-30 13:02 | Outpatient (AMB) | payer MEDICAID, SELFPAY ==
--- NOTE | 2024-11-30 13:17 | A.OFFVIS_ITS ---
Vital Signs 11/30/24 13:18 Height 5 ft 4 in Weight 134 lb BMI 23.0 BP 106/58 L Blood Pressure Location Lt brachial Position Sitting Pulse 74 Pulse Source Pulse Oximeter Pulse Oximetry (%) 93 Oxygen Delivery Method Room Air Intake Visit Reasons: 6m Constip. IBS bloating Rectus diastasis Intake Note: ESTABLISHED PATIENT for mgmt of anemia + constipation. Chief Complaint; C.O. intermittent episodes of worsening constipation and diarrhea, as well as generalized abd pain. Pt reports x1 hospital visit recently. Nuclear Auxiliary Operator Required: Yes Nuclear Auxiliary Operator Services: Nuclear Auxiliary Operator Offered & Declined Accompanied by: Pickers Material Handlers Allergies No Known Allergies (No Known Allergies*) Allergy (Verified 12/29/24 14:01) HPI HPI 6m Constip. IBS bloating Rectus diastasis: Details: LAST VISIT: Constipation IBS (irritable bowel syndrome) Postprandial abdominal bloating Rectus diastasis Plan Continue taking Dulcolax and stool softeners. May use milk of magnesia as needed. Increase fluid intake and activity to promote better bowel motility. Patient was encouraged to stop smoking. Currently she is smoking 2 packs a day. Avoid dietary triggers and late night snacking. Staying upright for minimum 3 hours after meals discussed with patient. Both patient and her body painter are agreeable to plan of care and verbalizes understanding of instructions. They wer e given the opportunity to ask questions and all questions answered. ? Thank you for allowing me to participate in her care New docusate sodium (Colace) 100 mg PO BID 90 caps 2RF Refilled magnesium hydroxide (Milk of Magnesia) 10 mL PO DAILY PRN 355 mL 0RF constipation bisacodyl (Dulcolax (bisacodyl)) 10 mg (2 x 5 mg) PO BEDTIME 180 tabs 4RF Discontinued sennosides (senna) Discontinued Reason: Doctor's Order 17.2 mg (2 x 8.6 mg) PO BEDTIME 60 tabs 4RF for constipation TODAY'S VISIT Patient is here today for follow-up. Patient reports taking MiraLax in the m orning and Dulcolax in the evening every day, however patient reports that she was having constant diarrhea. Patient takes Dulcolax as needed. Last month patient was seen in the ED for abdominal pain, nausea and vomiting. Patient admits to using cocaine, smoking, denies using marijuana. CT scan in ED showed: IMPRESSION: Concerning internal hernia, right hemiabdomen with the incomplete/intermittent bowel obstruction. Inflammatory bowel disease such as Crohn's cannot be excluded. Loculated the umbilical and supraumbilical and epigastric mostly fat-containing hernias. Concerning pelvic congestion, left adnexa. Probable uterine fibroid. Inflammatory versus infectious process in the urinary bladder cannot be excluded. Hiatal hernia. Surgery was consulted. Patient has a follow-up with surgeon next month. 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 CT scan shows mildly dilated small loops, however there is concern for internal hernia as there is some twisting of the mesentery in the RUQ on imaging. She has good air distally in the rectum. She is resting comfortably on exam with moderately distended abdomen but soft with mild to moderate diffuse tenderness. She will be admitted to the surgical service for further treatment of the SBO. She has been made NPO, started on IVF, PRN analgesics and antiemetics. Lactic acid has been ordered as well as SBFT. We did discuss possibility of needing to proceed with laparotomy and lysis of adhesions if the SBFT is positive or she does not improve/worsens. Will hold off on NGT as stomach is not distended on imaging however we did discuss insertion if she has continued vomiting. Patient is in agreement with current plan. Further plan dependent on clinical course. Hospitalist consult for management of medical comorbidities. [facility] Medical History (Updated 01/04/25 @ 19:45 by GIUSEPPE Awad-) Chronic idiopathic constipation Incisional hernia History of syphilis History of syphilis History of ductal carcinoma in situ (DCIS) of breast Anxiety Serrated polyp of colon Cecal polyp Nipple discharge Elevated cholesterol Family history of breast cancer Lobular carcinoma in situ (LCIS) of left breast Ductal carcinoma in situ (DCIS) of breast Hypertension Diabetes mellitus Depression Breast calcification, left Surgical History History of laparoscopic cholecystectomy H/O colonoscopy H/O breast surgery History of tubal ligation Family History Sister History of breast cancer Social History Household Members: Children Household Members Other:: son 18 yrs old Housing: Apartment Are you a primary animal daycare provider to a significant other at home: No Do you presently have visiting nurse or other home services: Yes Alcohol intake: never Patient Tobacco Use Status: Current everyday Tobacco user Tobacco use type: Cigarette Cigarette Packs Per Day: 2 Cigarettes Per Day: 40.0 Years Smoked: 30 e-Cigarette/Vaping Use: Never Used Second Hand Smoke Exposure: No Substance Use Type: Crack/Cocaine service: No Current occupational status: unemployed Sexual orientation: Straight/Heterosexual Gender identity: Female Female Reproductive History Menstrual Age of Menarche: 14 Review of Systems Const Denies weight gain and Denies weight loss ENT Reports no additional complaints, Denies dysphagia and Denies odynophagia Card Reports no additional complaints Resp Reports no additional complaints GI Denies abdominal pain, Denies belching, Denies melena, Reports bloating (Occasional), Denies change in bowel habits, Reports constipation (Improved), Denies dysphagia, Denies excessive flatus, Denies dyspepsia, Denies heartburn, D enies diarrhea, Denies loose stools, Denies nausea, Denies odynophagia and Denies vomiting Musc Reports no additional complaints Neuro Reports no additional complaints Psych Reports no additional complaints Endo Reports no additional complaints Physical Exam Vital Signs: Last Vital Signs Pulse 74 11/30/24 13:18 BP 106/58 L 11/30/24 13:18 Pulse Ox 93 11/30/24 13:18 Oxygen Delivery Method Room Air 11/30/24 13:18 BMI result Body Mass Index 23.0 Const General: healthy appearing and no acute distress Nutritional Appearance: obese Orientation/consciousness: patient oriented x3 Eyes General: appearance normal, both eyes and all related structures Neck Neck: Yes normal visual inspection, Yes full ROM and Yes trachea midline Thyroid: Thyroid normal Resp Effort & Inspection: normal respiratory effort, able to speak in complete sentences, no tracheal deviation and symmetric chest movement Auscultation: clear to auscultation bilaterally Cardio Rate: regular rate GI Inspection: Yes normal to inspection, Yes distended and Yes obesity Palpation (GI): Soft to palpation, not firm and nontender Auscultation: Hypoactive bowel sounds present General: Yes no CVA tenderness Back/Spine/Pelvis Back: no CVA tenderness Skin General skin exam: elasticity normal, turgor normal and dry skin Neuro General: patient oriented x3 Psych Appearance: grossly normal Mental Status: mental status grossly normal Assessment & Plan Assessment & Plan (1) Incisional hernia: Code(s): K43.2 - Incisional hernia without obstruction or gangrene Category: Medical Qualifiers: Obstruction and gangrene presence: without obstruction or gangrene Qualified Code(s): K43.2 - Incisional hernia without obstruction or gangrene (2) Chronic idiopathic constipation: Code(s): K59.04 - Chronic idiopathic constipation Category: Medical (3) Constipation: Code(s): K59.00 - Constipation, unspecified Qualifiers: Constipation type: chronic idiopathic constipation Qualified Code(s): K59.04 - Chronic idiopathic constipation (4) Irritable bowel syndrome: Code(s): K58.9 - Irritable bowel syndrome, unspecified Qualifiers: Irritable bowel syndrome type: with constipation Qualified Code(s): K58.1 - Irritable bowel syndrome with constipation (5) Postprandial abdominal bloating: Code(s): R14.0 - Abdominal distension (gaseous) (6) Diastasis of rectus abdominis: Code(s): M62.08 - Separation of muscle (nontraumatic), other site Plan Patient will be sent for CT enterography. Patient was instructed to continue drinking fluids. Take fiber. Take Dulcolax as needed. Patient was encouraged to change her diet. Eat more vegetables. Follow-up with surgeon next month. Follow up in the office in 2-3 months. Patient is agreeable to this plan and verbalizes understanding of instructions. She was given the opportunity to ask questions and all questions answered. Thank you for allowing me to participate in her care Orders: Orders Creatinine 12/02/24 R10.11 - Right upper quadrant pain Lipase 12/02/24 R10.9 - Unspecified abdominal pain Blood Urea Nitrogen 12/02/24 R10.11 - Right upper quadrant pain Calprotectin, Fecal 11/30/24 R15.9 - Full incontinence of feces C Reactive Protein 12/02/24 K58.9 - Irritable bowel syndrome, unspecified CT enterography 11/30/24 R19.5 - Other fecal abnormalities Medications: New methylcellulose (laxative) (Citrucel) take it with full glass of water 500 mg PO DAILY 90 tabs 2RF K59.00 - Constipation, unspecified Coding Level of Care Code Est Pt Level 4 (43538) Complex EM visit Add On G2211 Diagnoses Incisional hernia, without obstruction or gangrene K43.2 Obstruction and gangrene presence: without obstruction or gangrene Chronic idiopathic constipation K59.04 Chronic idiopathic constipation K59.04 Constipation type: chronic idiopathic constipation Irritable bowel syndrome with constipation K58.1 Irritable bowel syndrome type: with constipation Postprandial abdominal bloating R14.0 Diastasis of rectus abdominis M62.08 Time Spent (min) 50 Comment 25 minutes spent with patient and additional 15 minutes spent reviewing her records
[2024-11-30 13:18] VITALS: BP 106/58; PULSE 74; O2SAT 93; BMI 23.0
--- OUTSIDE RECORDS SUMMARY | 2024-11-30 15:56 | XMS_ITS | Encounter Summary ---
Author Organization [facility] Address [address] [facility] [address] [place] [address] Phone Care Team Providers Care Gamewell Operator Name Role Phone Sonali Harper MD Primary Care Provider [phone] Encounter Details Date Type Department Care Team (Late st Contact Info) Description 07/11/2020 Ancillary Orders [facility],Outside Imaging 30 [place] [address] System, Provider [place] In, [place] [address] Social History Tobacco Use Types Packs/Day Years Used Date Smoking Tobacco: Never Assessed Comments Unknown Sex and Gender Information Value Date Recorded Sex Assigned at Not on file Legal Sex Female 9:27 AM EDT Gender Identity Not on file Sexual Orientation Not on file documented as of this encounter Plan of Treatment Not on file documented as of this encounter Results * Mammogram Outside (No Interpretation) (08/19/2017 12:05 AM EDT) Narrative SYSTEMGENERATED, DOCUMENTATION - 07/11/2020 2:39 PM EDT This study is for PACS storage only and not for interpretation. us Provider Not In System PhD IMG OUTSIDE IMAGING W /OUT INTERPRETATION Final Result documented in this encounter Visit Diagnoses Not on filedocumented in this encounter Care Teams Gamewell Operator Relationship Specialty Start Date End Date Sonali Harper MD 230 [facility] 1 [place] [address] [email or web address] PCP - General Family Medicine 07/07/20 documented as of this encounter Additional Source Comments The information contained in this document represents components of the legal health record. It is not the complete legal health record.[facility]
--- OUTSIDE RECORDS SUMMARY | 2024-11-30 15:56 | XMS_ITS | Encounter Summary ---
Author Organization [facility] Address [address] [facility] [address] [place] [address] Phone Care Team Providers Care Photographer Portrait Name Role Phone Sonali Harper MD Primary Care Provider [phone] Encounter Details Date Type Department Care Team (Late st Contact Info) Description 07/11/2020 Ancillary Orders [facility],Outside Imaging 30 [place] [address] System, Provider Not In, [place] [address] Social History Tobacco Use Types Packs/Day Years [...] Results * Mammogram Outside (No Interpretation) (08/19/2017 12:00 AM EDT) Narrative SYSTEMGENERATED, DOCUMENTATION - 07/11/2020 2:33 PM EDT This study is for PACS storage only and not for interpretation. us Provider Not In System PhD IMG OUTSIDE IMAGING W /OUT INTERPRETATION Final Result documented in this encounter Visit Diagnoses Not on filedocumented in this encounter Care Teams Photographer Portrait Relationship Specialty Start Date End Date Sonali Harper MD 230 [facility] 1 [place] [address] [email or web address] PCP - General Family Medicine 07/07/20 documented as of this encounter Additional Source Comments The information contained in this document represents components of the legal health record. It is not the complete legal health record.[facility]
--- OUTSIDE RECORDS SUMMARY | 2024-11-30 15:56 | XMS_ITS | Encounter Summary ---
Author Organization [facility] Address [address] [facility] [address] [place] [address] Phone Care Team Providers Care Sexual Assault Nurse Name Role Phone Sonali Harper MD Primary Care Provider [phone] Encounter Details Date Type Department Care Team (Late st Contact Info) Description 07/11/2020 Ancillary Orders [facility],Outside Imaging [address] [place] [address] System, Provider Not In, [place] [address] Social History Tobacco Use Types Packs/Day Years Used Date Smoking Tobacco: Never Assessed Comments Unknown Sex and Gender Information Value Date Recorded Sex Assigned at Not on file Legal Sex Female 9:27 AM EDT Gender Identity Not on file Sexual Orientation Not on file documented as of this encounter Plan of Treatment Not on file documented as of this encounter Results * US Breast Outside (No Interpretation) (01/11/2020 12:10 AM EST) Narrative SYSTEMGENERATED, DOCUMENTATION - 07/11/2020 2:37 PM EDT This study is for PACS storage only and not for interpretation. us Provider Not In System PhD IMG OUTSIDE IMAGING W /OUT INTERPRETATION Final Result documented in this encounter Visit Diagnoses Not on filedocumented in this encounter Care Teams Sexual Assault Nurse Relationship Specialty Start Date End Date Sonali Harper MD [address] [place] [address] [email or web address] PCP - General Family Medicine 07/07/20 documented as of this encounter Additional Source Comments The information contained in this document represents components of the legal health record. It is not the complete legal health record.[facility]
--- OUTSIDE RECORDS SUMMARY | 2024-11-30 15:56 | XMS_ITS | Encounter Summary ---
Author Organization [facility] Address [address] [facility] [address] [place] [address] Phone Care Team Providers Care Help Desk Technician Name Role Phone Sonali Harper MD Primary Care Provider [phone] Encounter Details Date Type Department Care Team (Late st Contact Info) Description 07/11/2020 Ancillary Orders [facility],Outside Imaging 30 [place] [address] System, Provider Not In, [place] [address] Social History Tobacco Use Types Packs/Day Years [...] * US Breast Outside (No Interpretation) (01/11/2020 12:05 AM EST) Narrative SYSTEMGENERATED, DOCUMENTATION - 07/11/2020 2:36 PM EDT This study is for PACS storage only and not for interpretation. us Provider Not In System PhD IMG OUTSIDE IMAGING W /OUT INTERPRETATION Final Result documented in this encounter Visit Diagnoses Not on filedocumented in this encounter Care Teams Help Desk Technician Relationship Specialty Start Date End Date Sonali Harper MD [address] [place] [address] [email or web address] PCP - General Family Medicine 07/07/20 documented as of this encounter Additional Source Comments The information contained in this document represents components of the legal health record. It is not the complete legal health record.[facility]
--- OUTSIDE RECORDS SUMMARY | 2024-11-30 15:56 | XMS_ITS | Encounter Summary ---
Author Organization [facility] Address [address] [facility] [address] [place] [address] Phone Care Team Providers Care Claims Specialist Name Role Phone Sonali Harper MD Primary Care Provider [phone] Encounter Details Date Type Department Care Team (Late st Contact Info) Description 07/11/2020 Ancillary Orders [facility],Outside Imaging 30 [place] [address] System, Provider [place] In, [place] [address] Social History Tobacco Use Types Packs/Day Years [...] Results * US Breast Outside (No Interpretation) (02/26/2018 12:00 AM EST) Narrative SYSTEMGENERATED, DOCUMENTATION - 07/11/2020 2:38 PM EDT This study is for PACS storage only and not for interpretation. us Provider Not In System PhD IMG OUTSIDE IMAGING W /OUT INTERPRETATION Final Result documented in this encounter Visit Diagnoses Not on filedocumented in this encounter Care Teams Claims Specialist Relationship Specialty Start Date End Date Sonali Harper MD [address] [place] [address] [email or web address] PCP - General Family Medicine 07/07/20 documented as of this encounter Additional Source Comments The information contained in this document represents components of the legal health record. It is not the complete legal health record.[facility]
--- OUTSIDE RECORDS SUMMARY | 2024-11-30 15:56 | XMS_ITS | Encounter Summary ---
Author Organization [facility] Address [address] [facility] [address] [place] [address] Phone Care Team Providers Care Fire Management Specialist Name Role Phone Sonali Harper MD Primary Care Provider [phone] Encounter Details Date Type Department Care Team (Late st Contact Info) Description 07/11/2020 Ancillary Orders [facility],Outside Imaging 30 [place] [address] System, Provider [place] In, [place] [address] Social History Tobacco Use Types Packs/Day Years [...] encounter Results * Mammogram Outside (No Interpretation) (05/03/2020 12:00 AM EST) Narrative SYSTEMGENERATED, DOCUMENTATION - 07/11/2020 2:28 PM EDT This study is for PACS storage only and not for interpretation. us Provider Not In System PhD IMG OUTSIDE IMAGING W /OUT INTERPRETATION Final Result documented in this encounter Visit Diagnoses Not on filedocumented in this encounter Care Teams Fire Management Specialist Relationship Specialty Start Date End Date Sonali Harper MD 230 [facility] 1 [place] [address] [email or web address] PCP - General Family Medicine 07/07/20 documented as of this encounter Additional Source Comments The information contained in this document represents components of the legal health record. It is not the complete legal health record.[facility]
--- OUTSIDE RECORDS SUMMARY | 2024-11-30 15:56 | XMS_ITS | Clinical Summary ---
Author Organization [facility] Address [address] [facility] [address] [place] [address] Phone Care Team Providers Care Livestock Trucker Name Role Phone Bernadette Harper MD Primary Care Provider [phone] [phone] No known active allergies Medications atorvastatin (LIPITOR) 80 MG tablet Take 80 mg by mouth daily. Active docusate sodium (COLACE) 100 MG capsule Take 100 mg by mouth 2 (two) times a day. Active ferrous sulfate 325 mg (65 mg naknek iron) tablet Take 325 mg by mouth [...] 06/16/2022 06/16/2020, 04/11, 05/03/2020, Additional history exists INFLUENZA VACCINE (#1) 2024 , 11/30/2018, 01/07/2018, Additional history exists COVID-19 VACCINE ( - season) 2024 06/14/2020, 05/17/2020 Adult Td,Tdap Booster 05/28/2028 05/28/2018 [...] ACO C3 ACO C3 ACO C3 ACO Care Teams Livestock Trucker Relationship Specialty Start Date End Date Bernadette Harper MD [address] [address] [email or web address] PCP - General Family Medicine 07/07/20 Additional Source Comments The information contained in this document represents components of the legal health record. It is not the complete legal health record.[facility]
--- OUTSIDE RECORDS SUMMARY | 2024-11-30 15:56 | XMS_ITS | Encounter Summary ---
Author Organization [facility] Address [address] [facility] [address] [place] [address] Phone Care Team Providers Care Senior Loss Control Specialist Name Role Phone Sonali Harper MD Primary Care Provider [phone] Encounter Details Date Type Department Care Team (Late st Contact Info) Description 07/11/2020 Ancillary Orders [facility],Outside Imaging 30 [place] [address] System, Provider [place] In, [place] [address] Social History Tobacco Use Types Packs/Day Years [...] Results * US Breast Outside (No Interpretation) (02/25/2018 12:00 AM EST) Narrative SYSTEMGENERATED, DOCUMENTATION - 07/11/2020 2:32 PM EDT This study is for PACS storage only and not for interpretation. us Provider Not In System PhD IMG OUTSIDE IMAGING W /OUT INTERPRETATION Final Result documented in this encounter Visit Diagnoses Not on filedocumented in this encounter Care Teams Senior Loss Control Specialist Relationship Specialty Start Date End Date Sonali Harper MD [address] [place] [address] [email or web address] PCP - General Family Medicine 07/07/20 documented as of this encounter Additional Source Comments The information contained in this document represents components of the legal health record. It is not the complete legal health record.[facility]
--- OUTSIDE RECORDS SUMMARY | 2024-11-30 15:56 | XMS_ITS | Encounter Summary ---
Author Organization [facility] Address [address] [facility] [address] [place] [address] Phone Care Team Providers Care Fuels Engineer Name Role Phone Sonali Harper MD Primary Care Provider [phone] Encounter Details Date Type Department Care Team (Late st Contact Info) Description 07/11/2020 Ancillary Orders [facility],Outside Imaging 30 [place] [address] System, Provider Not In, [place] [address] Social History Tobacco Use Types Packs/Day Years [...] Results * US Breast Outside (No Interpretation) (03/02/2018 12:00 AM EST) Narrative SYSTEMGENERATED, DOCUMENTATION - 07/11/2020 2:35 PM EDT This study is for PACS storage only and not for interpretation. us Provider Not In System PhD IMG OUTSIDE IMAGING W /OUT INTERPRETATION Final Result documented in this encounter Visit Diagnoses Not on filedocumented in this encounter Care Teams Fuels Engineer Relationship Specialty Start Date End Date Sonali Harper MD [address] [place] [address] [email or web address] PCP - General Family Medicine 07/07/20 documented as of this encounter Additional Source Comments The information contained in this document represents components of the legal health record. It is not the complete legal health record.[facility]
--- OUTSIDE RECORDS SUMMARY | 2024-11-30 15:56 | XMS_ITS | Clinical Summary ---
Author Organization [address] [facility] Address [address] [place] [address] Phone Care Team Providers Care Manager Post Name Role Phone Ana Luisa Bourne RN [...] Encounters Date Type Department Care Team Description 10/27/2024 1:30 PM EDT Office Visit Orthopedic Surgery - [address] [address] Teodoro Palomino, DPM Dermatophytosis of nail (Primary Dx); Tinea pedis of both feet; Acquired hammer toe of right foot; Hammer toe of left foot; Type II diabetes mellitus with peripheral circulatory disorder ([facility] V24, CMS/[facility] V28); Diabetic mononeuropathy simplex (CMS/HCC V24, CMS/[facility] V28); Corns and callosities; Pain in toe of right foot; Difficulty walking; Pain in toe of left foot; Xerosis of skin; Metatarsalgia of both feet [...] - - Weight 64.9 kg (143 lb) 10/27/2024 1:27 PM EDT Height 162.6 cm (5' 4.02 ) 04/13/2024 10:43 AM E Body Mass Index 24.53 04/13/2024 10:43 AM EST Plan of Treatment Upcoming Encounters Date Type Department Care Team (Late st Contact Info) Description 02/16/2025 1:30 PM EST Office Visit Orthopedic Surgery - [place] [address] [phone] Teodoro Palomino, ROXANN [address] [place] [address] [address] Health Maintenance Due Date Last Done Comments Breast Cancer Screening 1972 Diabetes: Annual GFR (Glomerular Filtration Rate) 1972 Diabetes: Annual Foot Exam 1982 Diabetes: Annual Retina Eye Exam 1982 Zoster Vaccines (1 of 2) 07/06/1991 Cervical Cancer Screening: Pap Smear 1993 Colorectal Cancer Screening: Colonoscopy 02/10/2022 Social Influencers of Health Screening 02/10/2022 Depression Screening 03/10/2024 Diabetes: Annual Urine Albumin-Creatinine Ratio (uACR) 04/13/2024 Hypertension/CHF/CAD Annual BMP Blood Test 04/13/2024 Diabetes: Blood Sugar Control Test (HGBA1C) 06/28/2024 12/29/2023 COVID-19 Vaccine (4 - Pfizer risk 2023- season) 2024 11/27/2023, 12/23/2022, 03/22/2022 Influenza Vaccine (#1) 2024 , 12/23/2022, 03/22/2022, Additional history exists DTaP,Tdap,and Td Vaccines (3 - Td or Tdap) 05/28/2028 05/28/2018, 07/06/2008 Cholesterol Screening (Lipid Panel) 07/29/2028 07/30/2023 RSV Immunization Adult Patients (1 - 1-dose 75+ series) 07/06/2047 Hepatitis A Vaccines Completed 05/17/2021, 10/15/19 19 Pneumococcal Vaccine: 50+ Years Completed 04/18/2023, 05/28/2018, 11/29/2015, Additional history exists HIV Screening Completed 09/20/2024 Hepatitis C Screening Completed 09/20/2024 Hepatitis B Vaccines Completed 09/27/2024, 05/17/2021, 10/14/2018, Additional history exists HIB Vaccines Aged Out [...] topic Insurance MEDICAID - [place] Care Teams Manager Post Relationship Specialty Start Date End Date Ana Luisa Bourne RN [address] [address] PCP - General 04/23/23
--- OUTSIDE RECORDS SUMMARY | 2024-11-30 15:56 | XMS_ITS | Encounter Summary ---
Author Organization [facility] Address [address] [facility] [address] [place] [address] Phone Care Team Providers Care Full Stack Python Developer Name Role Phone Sonali Haprer MD Primary Care Provider [phone] Encounter Details Date Type Department Care Team (Late st Contact Info) Description 07/11/2020 Ancillary Orders [facility],Outside Imaging 30 [place] [address] System, Provider [place] In, [place] [address] Social History Tobacco Use Types Packs/Day Years [...] encounter Results * Mammogram Outside (No Interpretation) (06/16/2020 12:00 AM EDT) Narrative SYSTEMGENERATED, DOCUMENTATION - 07/11/2020 2:27 PM EDT This study is for PACS storage only and not for interpretation. us Provider Not In System PhD IMG OUTSIDE IMAGING W /OUT INTERPRETATION Final Result documented in this encounter Visit Diagnoses Not on filedocumented in this encounter Care Teams Full Stack Python Developer Relationship Specialty Start Date End Date Sonali Harper MD 230 [facility] 1 [place] [address] [email or web address] PCP - General Family Medicine 07/07/20 documented as of this encounter Additional Source Comments The information contained in this document represents components of the legal health record. It is not the complete legal health record.[facility]
--- OUTSIDE RECORDS SUMMARY | 2024-11-30 15:56 | XMS_ITS | Encounter Summary ---
Author Organization [facility] Address [address] [facility] [address] [place] [address] Phone Care Team Providers Care Photocomposing Machine Operator Name Role Phone Sonali Harper MD Primary Care Provider [phone] Encounter Details Date Type Department Care Team (Late st Contact Info) Description 07/11/2020 Ancillary Orders [facility],Outside Imaging 30 [place] [address] System, Provider [place] In, [place] [address] Social History Tobacco Use Types Packs/Day Years [...] encounter Results * Mammogram Outside (No Interpretation) (07/30/2017 12:00 AM EDT) Narrative SYSTEMGENERATED, DOCUMENTATION - 07/11/2020 2:34 PM EDT This study is for PACS storage only and not for interpretation. us Provider Not In System PhD IMG OUTSIDE IMAGING W /OUT INTERPRETATION Final Result documented in this encounter Visit Diagnoses Not on filedocumented in this encounter Care Teams Photocomposing Machine Operator Relationship Specialty Start Date End Date Sonali Harper MD 230 [facility] 1 [place] [address] [email or web address] PCP - General Family Medicine 07/07/20 documented as of this encounter Additional Source Comments The information contained in this document represents components of the legal health record. It is not the complete legal health record.[facility]
--- OUTSIDE RECORDS SUMMARY | 2024-11-30 15:57 | XMS_ITS | Encounter Summary ---
Author Organization [facility] Address [address] [facility] [address] [place] [address] Phone Care Team Providers Care Natural Science Curator Name Role Phone Sonali Harper MD Primary Care Provider [phone] Encounter Details Date Type Department Care Team (Late st Contact Info) Description 07/11/2020 Ancillary Orders [facility],Outside Imaging 30 [place] [address] System, Provider [place] In, [place] [address] Social History Tobacco Use Types Packs/Day Years [...] Results * Mammogram Outside (No Interpretation) (05/03/2020 12:05 AM EST) Narrative SYSTEMGENERATED, DOCUMENTATION - 07/11/2020 2:29 PM EDT This study is for PACS storage only and not for interpretation. us Provider Not In System PhD IMG OUTSIDE IMAGING W /OUT INTERPRETATION Final Result documented in this encounter Visit Diagnoses Not on filedocumented in this encounter Care Teams Natural Science Curator Relationship Specialty Start Date End Date Sonali Harper MD 230 [facility] 1 [place] [address] [email or web address] PCP - General Family Medicine 07/07/20 documented as of this encounter Additional Source Comments The information contained in this document represents components of the legal health record. It is not the complete legal health record.[facility]
--- OUTSIDE RECORDS SUMMARY | 2024-11-30 15:57 | XMS_ITS | Encounter Summary ---
Author Organization [facility] Address [address] [facility] [address] [place] [address] Phone Care Team Providers Care Control Operator Name Role Phone Sonali Harper MD Primary Care Provider [phone] Encounter Details Date Type Department Care Team (Late st Contact Info) Description 07/11/2020 Ancillary Orders [facility],Outside Imaging 30 [place] [address] System, Provider Not In, [place] [address] Social History Tobacco Use Types Packs/Day Years [...] encounter Results * Mammogram Outside (No Interpretation) (01/11/2020 12:00 AM EST) Narrative SYSTEMGENERATED, DOCUMENTATION - 07/11/2020 2:31 PM EDT This study is for PACS storage only and not for interpretation. us Provider Not In System PhD IMG OUTSIDE IMAGING W /OUT INTERPRETATION Final Result documented in this encounter Visit Diagnoses Not on filedocumented in this encounter Care Teams Control Operator Relationship Specialty Start Date End Date Sonali Harper MD 230 [facility] 1 [place] [address] [email or web address] PCP - General Family Medicine 07/07/20 documented as of this encounter Additional Source Comments The information contained in this document represents components of the legal health record. It is not the complete legal health record.[facility]
== END 2024-11-30 14:17 | disposition home or self-care (01) ==
LOC: HO.HGI 13:02
PROVIDERS: Visit Provider Nurse Practitioner Family
DX: K43.2 Incisional hernia without obstruction or gangrene (principal); K59.04 Chronic idiopathic constipation; K58.1 Irritable bowel syndrome with constipation; R14.0 Abdominal distension (gaseous); M62.08 Separation of muscle (nontraumatic), other site
CPT/HCPCS: 99214

== ENCOUNTER → 2024-11-30 13:02 | Outpatient (BNVA) | payer MEDICAID, SELFPAY | PROVIDERS: Visit Provider Nurse Practitioner Family | DX: K43.2 Incisional hernia without obstruction or gangrene (principal); K59.04 Chronic idiopathic constipation; K58.1 Irritable bowel syndrome with constipation; R14.0 Abdominal distension (gaseous); M62.08 Separation of muscle (nontraumatic), other site | CPT/HCPCS: 99212 ==

== ENCOUNTER 2024-12-02 08:40 | Outpatient (REF) | payer MEDICAID, SELFPAY ==
--- OUTSIDE RECORDS SUMMARY | 2024-11-30 10:15 | XMS_ITS | Encounter Summary ---
Author Organization [employer] Address [address] [place] [address] Care Team Providers Care Clinical Pharmacy Coordinator Name Role Phone Ana Luisa Bourne GIUSEPPE Primary Care Provider [phone] Priscilla Cody Unavailable Codie Quintero MD Unavailable [phone] Teodoro Palomino DPM Unavailable [phone] Manoj Locke MD Unavailable Reason for Visit * Reason Comments Acupuncture Encounter Details Date Type Department Care Team (Late st Contact Info) Description 11/30/2024 10:15 AM EDT Office Visit [facility] [address] [place], [place] [id number] Mojgan Clarke MD [address] [place], [place] [phone] Stress (Primary Dx) Social History Tobacco Use Types Packs/Day Years [...] Answer Date Recorded Patient Health Questionnaire-9 Score 17 11/22/2024 Patient Health Questionnaire-9 Score 17 11/22/2024 Last PHQ-9: Questionnaire Data Not on file 0 11/22/2024 Housing Stability Answer Date Recorded What is [...] Date Recorded Patient Health Questionnaire-2 Score 5 11/22/2024 Internet Access Answer Date Recorded Internet Access Q1 Yes 09/27/2024 Internet Access Q2 Not on file 09/27/2024 Comments No Sex and Gender Information Value Date Recorded Sex Assigned at Female 01/07/2022 10:35 AM EDT Legal Sex Female 10:35 AM EDT Gender Identity Female 01/07/2022 10:35 AM EDT Sexual Orientation Don't know 01/07/2022 10 :35 AM EDT documented as of this encounter Progress Notes * Mojgan Clarke MD - 11/30/2024 10:15 AM EDT Subjective Patient ID: Hodan Murrieta is a 54 y.o. female who presents for Acupuncture. Hodan returns to acupuncture after a one year hiatus. She is interested in addressing stress andanxiety. Review of Systems Psychiatric/Behavioral: Negative for agitation and dysphoric mood. The patient is nervous/anxious. Objective Physical Exam Constitutional: Appearance: Normal appearance. Skin: General: Skin is warm and dry. Neurological: Mental Status: She is alert and oriented to person, place, and time. Assessment/Plan Diagnoses and all orders for this visit: Stress Written consent obtained for ear acupuncture. Ears prepped with alcohol pad. Five ear points needled bilaterally: Sympathetic, Vivas Men, Kidney, Liver and Lung. Treatment duration: 30 minutes. Good hemostasis. Patient tolerated well. Follow up weekly for repeat acupuncture treatments as desired. documented in this encounter Plan of Treatment Not on file documented as of this encounter Goals Goal Patient Goal Type Associated Problems Recent Progress Patient-Stated? Author Hemoglobin A1c < 7 Result Component 13.7( 10:20 AM EDT) No Piers-Gambl e, Geeta, PharmD Quit using tobacco (cigarettes, smokeless, etc) Tobacco Use No Piers-Gambl e, Geeta, PharmD documented as of this encounter Visit Diagnoses Diagnosis Stress- Primary Other psychological or physical stress, not elsewhere classified documented in this encounter Additional Health Concerns Assessment Noted Time PHQ-9 Depression Total Score: 17 025 11:17 AM EDT documented as of this encounter Care Teams Clinical Pharmacy Coordinator Relationship Specialty Start Date End Date Ana Luisa Bourne FNP [address] [place] [address] PCP - General Family Medicine 11/01/21 Priscilla Cody [address] [place] [id number] Gastroenterology 11/21/24 Codie Quintero MD [address] [place] [phone] Hematology and Oncology 11/21/24 Teodoro Palomino DPM [address] [place] [id number] Podiatry 11/21/24 Manoj Locke MD [address] [address] General Surgery 11/21/24 [facility] 02/17/24 [facility] Contract Designer Mental Health 11/21/24 YOAN Cool ([facility]) Home Monitoring Clinician 11/21/24 documented as of this encounter
--- OUTSIDE RECORDS SUMMARY | 2024-12-01 09:00 | XMS_ITS | Encounter Summary ---
Author Organization [employer] Address [address] [facility] 7t [place] [address] Care Team Providers Care Inspector Publications Name Role Phone Ana Luisa Bourne GIUSEPPE Primary Care Provider [phone] Priscilla Cody Unavailable Codie Quintero MD Unavailable [phone] Teodoro Palomino DPM Unavailable [phone] Manoj Locke MD Unavailable Reason for Visit * Reason Comments GBAT F/U Encounter Details Date Type Department Care Team (Late st Contact Info) Description 12/01/2024 9:00 AM EDT Office Visit [facility] MEDICINE [address] [place], [place] [phone] Keith Hernandez MD [address] [place] [address] Alcohol use disorder, severe, dependence (CMS/HCC) (Primary Dx) Social History Tobacco Use Types [...] housing situation today? I have andres sing 09/27/[address] you li [...] as of this encounter Progress Notes * Keith Hernandez MD - 12/01/2024 9:00 AM EDT LAST GBAT VISIT 10/06/2024 Patient presents for Group-Based Addiction Treatment for AUD and cocaine use disorder Returning to [facility] after a long hiatus Reviewed the group goals, expectations and policies Consented to the group treatment options Actively participated in the group discussion with the topic of: Trauma Following staff present at the visit: Physician, Dining Room Tables Set Up Attendant, Team RN, Clinician, and MedicalAssistant Opportunities provided to address individual medical/medication/ concerns States doing well without cravings or relapse TODAY GBAT VISIT 12/01/2024 Patient presents for Group-Based Addiction Treatment for AUD and cocaine use disorder Returning to [facility] after a hiatus (last GBAT meeting was in 09/2024) Reviewed the group goals, expectations and policies Consented to the group treatment options Actively participated in the group discussion with the topic of: Guide to Developing Social Skillsin Groups Following staff present at the visit: Physician, Dining Room Tables Set Up Attendant, Team RN, Clinician, and MedicalAssistant Opportunities provided to address individual medical/medication/BH concerns States doing well without cravings or relapse Review of Systems Psychiatric/Behavioral: Negative for behavioral problems and dysphoric mood. The patient is not nervous/anxious. Physical Exam Constitutional: Appearance: Normal appearance. Pulmonary: Effort: Pulmonary effort is normal. Neurological: Mental Status: She is alert. Psychiatric: Mood and Affect: Mood normal. Behavior: Behavior normal. Hodan was seen today for gbat f/u. Diagnoses and all orders for this visit: Alcohol use disorder, severe, dependence (CMS/HCC) (Primary) Patient presents for Group-Based Addiction Treatment of AUD and cocaine use disorder Reviewed the group goals, expectations and policies Consented to the group treatment options Actively participated in the group discussed Future discussion topics reviewed Unclear if adherent with Naltrexone PO treatment Reviewed behavioral modification and accessing services Group counseling provided with a focus on support system, tools for achieving/maintaining recovery Reviewed barriers for these goals Discussed strategies to address when faced situations that may trigger use Mass MARINE RESOURCE ECONOMIST reviewed Following staff present at the visit: Physician, Team RN, Clinician, Dining Room Tables Set Up Attendant and Grades 7 And 8 Teacher Follow up in 1 week for the next GBAT meeting This information has been disclosed to you from records protected by federal confidentiality rules (42 CFR Part 2). The federal rules prohibit you from making any further disclosure of information inthis record that identifies a patient as having or having had a substance use disorder either directly, by reference to publicly available information, or through verification of such identification by another person unless further disclosure is expressly permitted by the written consent of the individual whose information is being disclosed or as otherwise permitted by (see2.3.1). The federal rules restrict any use of the information to investigate or prosecute with regard to a crime any patient with a substance use disorder, except as provided at 2.12??(5) and 2.65. documented in this encounter Plan of Treatment Not on file documented as of this encounter Goals Goal Patient Goal Type Associated Problems Recent Progress Patient-Stated? Author Hemoglobin A1c < 7 Result Component 13.7( 5 10:20 AM EDT) No Piers-Gambl e, Geeta, PharmD Quit using tobacco (cigarettes, smokeless, etc) Tobacco Use No Piers-Gambl e, Geeta, PharmD documented as of this encounter Visit Diagnoses Diagnosis Alcohol use disorder, severe, dependence (CMS/HCC)- Primary documented in this encounter Additional Health Concerns Assessment Noted Time PHQ-9 Depression Total Score: 17 025 11:17 AM EDT documented as of this encounter Care Teams Inspector Publications Relationship Specialty Start Date End Date Ana Luisa Bourne FNP [address] [place] [address] PCP - General Family Medicine 11/01/21 Priscilla Cody [address] [place] [address] Gastroenterology 11/21/24 Codie Quintero MD [address] [place] [address] Hematology and Oncology 11/21/24 Teodoro Palomino DPM [address] [address] Podiatry 11/21/24 Manoj Locke MD [address] [place] [address] General Surgery 11/21/24 [facility] 02/17/24 [facility] Fur Operator Mental Health 11/21/24 YOAN Cool (VNA) Home Monitoring Clinician 11/21/24 documented as of this encounter
--- OUTSIDE RECORDS SUMMARY | 2024-12-02 09:11 | XMS_ITS | Encounter Summary ---
Author Organization [employer] Address [address] [facility] 7t [place] [address] Care Team Providers Care Dry Wall Plasterer Name Role Phone Harish Bourneayla CHIN Primary Care Provider Geeta Zeng PharmD Unavailable [phone] Priscilla Cody Unavailable Codie Quintero MD Unavailable [phone] Teodoro Palomino DPM Unavailable [phone] Manoj Locke MD Unavailable [phone] Encounter Details Date Type Department Care Team (Latest Contact Info) Description 09/27/2024 Results Follow-Up [facility] MED[facility]INE [address] [place] [address] Lexi Mancera CNM [address] [place] [address] Confirmatory Syphilis Profile Social History Tobacco Use [...] AM EDT documented as of this encounter Functional Status * Over the past 2 weeks, how often have you been bothered by any of the following problems? Question Answer Date of Assessment Author Patient Health Questionnaire-2 Score 5 11/08 11:17 AM EDT Marga Baker * Little interest or pleasure in doing things Answer Date of Assessment Author More than half the days 11/22/2024 11:17 AM EDT Marga Baker * Feeling down, depressed, or hopeless Answer Date of Assessment Author Nearly every day 11/22/2024 11:17 AM EDT Marga Baker * Trouble falling or staying asleep, or sleeping too much Answer Date of Assessment Author Nearly every day 11/22/2024 11:17 AM EDT Marga Baker * Feeling tired or having little energy Answer Date of Assessment Author Several days 11/22/2024 11:17 AM Marga Hansen * Poor appetite or overeating Answer Date of Assessment Author More than half the days 11/22/2024 11:17 AM Marga Hansen * Feeling bad about yourself - or that you are a failure or have let yourself or your family down Answer Date of Assessment Author Several days 11/22/2024 11:17 AM Marga Hansen * Trouble concentrating on things, such as reading the newspaper or watching television Answer Date of Assessment Author Nearly every day 11/22/2024 11:17 AM Marga Hansen * Moving or speaking so slowly that other people could have noticed? Or the opposite - being so fidgety or restless that you have been moving around a lot more than usual. Answer Date of Assessment Author More than half the days 11/22/2024 11:17 AM Marga Hansen * Thoughts that you would be better off or hurting yourself in some way Answer Date of Assessment Author Not at all 11/22/2024 11:17 AM Marga Hansen * Patient Health Questionnaire-9 Score Answer Date of Assessment Author 17 11/22/2024 11:17 AM Marga Hansen * How difficult have these problems made it for you to do your work, take care of things at home, or get along with other people? Answer Date of Assessment Author Very difficult 11/22/2024 11:17 AM Marga Hansen * Over the last 2 weeks, how often have you been bothered by any of the following problems? Question Answer Date of Assessment Author Feeling nervous, anxious, or on edge 3 11/08 11:17 AM Marga Hansen Not being able to stop or co ntrol worrying 3 11/22/2024 11:17 AM Marga Hansen Worrying too much about diff erent things 2 11/22/2024 11:17 AM Marga Hansen Trouble relaxing 2 11/22/2024 11:17 AM Marga Hansen Being so restless that it is hard to sit still 1 11/22/2024 11:17 AM EDT Marga Baker Becoming easily annoyed or irritable 1 11/08 11:17 AM EDT Marga Baker Feeling afraid as if somethi ng awful might happen 1 11/22/2024 11:17 AM EDT Marga Baker HANG-7 Total Score 13 11/22/2024 11:17 AM EDT Marga Baker documented as of this encounter Plan of Treatment Not on file documented as of this encounter Goals Goal Patient Goal Type Associated Problems Recent Progress Patient-Stated? Author Hemoglobin A1c < 7 Result Component 13.7( 10:20 AM EDT) No Eduardos-Pinky randhawa, Geeta, PharmD Quit using tobacco (cigarettes, smokeless, etc) Tobacco Use No Piers-Gambl e, Geeta, PharmD documented as of this encounter Visit Diagnoses Not on filedocumented in this encounter Additional Health Concerns Assessment Noted Time PHQ-9 Depression Total Score: 21 025 11:29 AM EDT documented as of this encounter Care Teams Dry Wall Plasterer Relationship Specialty Start Date End Date Ana Luisa Bourne FNP [address] [place] [address] PCP - General Family Medicine 11/01/21 Geeta Zeng, PharmD [address] [place] [address] Pharmacist Internal Medicine 07/07/23 11/20/24 Priscilla Cody 11 [facility] 3rd [place] [address] Gastroenterology 11/21/24 Codie Quintero MD [address] [place] [address] Hematology and Oncology 11/21/24 Teodoro Palomino DPM [address] [place] [address] Podiatry 11/21/24 Manoj Locke MD [address] 3rd [place] [address] General Surgery 11/21/24 [facility] 02/17/24 [facility] G[facility]ology Physician Mental Health 11/21/24 YOAN Cool (VNA) Home Monitoring Clinician 11/21/24 documented as of this encounter
--- OUTSIDE RECORDS SUMMARY | 2024-12-02 09:11 | XMS_ITS | Encounter Summary ---
Author Organization [employer] Address [address] [facility] 7t [place] [address] Care Team Providers Care Wrap Yarn Sorter Name Role Phone Ana Luisa Bourne SURGICAL SALES REPRESENTATIVE Primary Care Provider Geeta Zeng PharmD Unavailable Priscilla Cody Unavailable Codie Quintero MD Unavailable [phone] Teodoro Palomino DPM Unavailable [phone] Manoj Locke MD Unavailable [phone] Reason for Visit * Reason Comments Med Refill Encounter Details Date Type Department Care Team (Late st Contact Info) Description 12/31/2023 Refill [facility] MEDICINE [address] [place], [place] [phone] Keith Hernandez MD [address] [place], [place] [phone] Alcohol use disorder, severe, dependence (CMS/HCC) Social [...] documented as of this encounter Care Teams Wrap Yarn Sorter Relationship Specialty Start Date End Date Ana Luisa Bourne FNP [address] [place] [address] PCP - General Family Medicine 11/01/21 Geeta Zeng, Santosh [address] [place] [address] Pharmacist Internal Medicine 07/07/23 11/20/24 Priscilla Cody [address] [place] [address] [place] [address] Gastroenterology 11/21/24 Codie Quintero MD [address] [place] [address] Hematology and Oncology 11/21/24 Teodoro Palomino DPM [address] [place] [address] Podiatry 11/21/24 Manoj Locke MD [address] [place] [address] General Surgery 11/21/24 [facility] Health 02/17/24 [facility] Supervisor Channel Process Mental Health 11/21/24 YOAN Cool (VNA) Home Monitoring Clinician 11/21/24 documented as of this encounter
--- OUTSIDE RECORDS SUMMARY | 2024-12-02 09:11 | XMS_ITS | Encounter Summary ---
Author Organization [employer] Address [address] [facility] 7t [place] [address] Care Team Providers Care Air Battle Manager Name Role Phone Ana Luisa Bourne Primary Care Provider Geeta Zeng PharmD Unavailable Priscilla Cody Unavailable Codie Quintero MD Unavailable [phone] Teodoro Palomino DPM Unavailable [phone] Manoj Locke MD Unavailable Reason for Visit * Reason Comments Med Refill Encounter Details Date Type Department Care Team (Late st Contact Info) Description 05/17/2022 Refill [facility] MEDICINE [address] [place] [address] Ana Luisa Bourne FNP [address] [place], [place] [phone] Social History Tobacco Use Types Packs/Day Years [...] documented as of this encounter Care Teams Air Battle Manager Relationship Specialty Start Date End Date Ana Luisa Bourne FNP [address] [place] [address] PCP - General Family Medicine 11/01/21 Geeta Zeng, DaphneD [address] [place] [address] Pharmacist Internal Medicine 07/07/23 11/20/24 Priscilla Cody [address] [place] [address] Gastroenterology 11/21/24 Codie Quintero MD [address] [place] [address] Hematology and Oncology 11/21/24 Teodoro Palomino DPM [address] [place] [address] Podiatry 11/21/24 Manoj Locke MD [address] [place] [address] General Surgery 11/21/24 [facility] Health 02/17/24 [facility] Soap Mixer Mental Health 11/21/24 YOAN Cool (A) Home Monitoring Clinician 11/21/24 documented as of this encounter
--- OUTSIDE RECORDS SUMMARY | 2024-12-02 09:12 | XMS_ITS | Encounter Summary ---
Author Organization [employer] Address [address] [facility] 7t [place] [address] Care Team Providers Care Electronics Assembler And Tester Name Role Phone Ana Luisa Bourne [facility] Primary Care Provider [phone] Geeta Zeng PharmD Unavailable [phone] Priscilla Cody Unavailable Codie Quintero MD Unavailable [phone] Teodoro Palomino DPM Unavailable [phone] Manoj Locke MD Unavailable [phone] Reason for Visit * Reason Comments Med Refill Encounter Details Date Type Department Care Team (Late st Contact Info) Description 11/08/2022 Refill [facility] [address] [place], [place] [phone] [facility] [address] [place] [address] Left otitis media with effusion Social History [...] documented as of this encounter Care Teams Electronics Assembler And Tester Relationship Specialty Start Date End Date Ana Luisa Bourne FNP [address] [place] [address] PCP - General Family Medicine 11/01/21 Geeta Zeng PharmD [address] [place] [address] Pharmacist Internal Medicine 07/07/23 11/20/24 Priscilla Cody [address] [place] [address] Gastroenterology 11/21/24 Codie Quintero MD [address] [place] [address] Hematology and Oncology 11/21/24 Teodoro Palomino DPM [address] [place] [address] Podiatry 11/21/24 Manoj Locke MD [address] [place] [address] General Surgery 11/21/24 [facility] 02[facility]17/24 [facility] Vegetable Trimmer Mental Health 11/21/24 YOAN Cool (VNA) Home Monitoring Clinician 11/21/24 documented as of this encounter
--- OUTSIDE RECORDS SUMMARY | 2024-12-02 09:12 | XMS_ITS | Encounter Summary ---
Author Organization [employer] Address [address] [facility] 7t [place] [address] Care Team Providers Care Gluing Crew Leader Name Role Phone Ana Luisa Bourne [facility] Primary Care Provider [phone] Geeta Zeng PharmD Unavailable Priscilla Cody Unavailable Codie Quintero MD Unavailable [phone] Teodoro Palomino DPM Unavailable Manoj Locke MD Unavailable Reason for Visit * Reason Comments Med Refill Encounter Details Date Type Department Care Team (Late st Contact Info) Description 11/06/2022 Refill [facility] [address] [place], [place] [phone] [facility] [address] [place] [address] Left otitis media with effusion Social History [...] documented as of this encounter Care Teams Gluing Crew Leader Relationship Specialty Start Date End Date Ana Luisa Bourne FNP [address] [place] [address] PCP - General Family Medicine 11/01/21 Geeta Zeng PharmD [address] [place] [address] Pharmacist Internal Medicine 07/07/23 11/20/24 Priscilla Cody [address] [place] [address] Gastroenterology 11/21/24 Codie Quintero MD [address] [place] [address] Hematology and Oncology 11/21/24 Teodoro Palomino DPM [address] [place] [address] Podiatry 11/21/24 Manoj Locke MD [address] [place] [address] General Surgery 11/21/24 [facility] 02/17/24 [facility] Prisoner Classification Interviewer Mental Health 11/21/24 YOAN Cool (VNA) Home Monitoring Clinician 11/21/24 documented as of this encounter
--- OUTSIDE RECORDS SUMMARY | 2024-12-02 09:12 | XMS_ITS | Encounter Summary ---
Author Organization [employer] Address [address] [facility] 7t [place] [address] Care Team Providers Care Greaser And Oiler Name Role Phone Ana Luisa Bourne Primary Care Provider Geeta Zeng PharmD Unavailable Priscilla Cody Unavailable Codie Quintero MD Unavailable [phone] Teodoro Palomino DPM Unavailable [phone] Manoj Locke MD Unavailable Reason for Visit * Reason Onset Date Comments Order(s) 10/20/2023 Encounter Details Date Type Department Care Team (Late st Contact Info) Description 10/20/2023 Telephone [facility] MEDICINE [address] [place] [address] Ana Luisa Bourne FNP [address] [place], [place] [phone] Order(s) Social History Tobacco Use Types Packs/Day [...] 4:02 PM EDT Tc from Sun with [facility] stating since pt is a smoker she is requesting her to have a CT scan before upcoming PE. If any questions you can contact Sun at [phone]. documented in this encounter Plan of Treatment Not on file documented as of this encounter Goals Goal Patient Goal Type Associated Problems Recent Progress Patient-Stated? Author Hemoglobin A1c < 7 Result Component 13.7( 5 10:20 AM EDT) No Geeta Mojica PharmAnny Quit using tobacco (cigarettes, smokeless, etc) Tobacco Use No Geeta Mojica, PharmD documented as of this encounter Visit Diagnoses Not on filedocumented in this encounter Additional Health Concerns Assessment Noted Time PHQ-9 Depression Total Score: 5 09/25/19 24 2:47 PM EDT documented as of this encounter Care Teams Greaser And Oiler Relationship Specialty Start Date End Date Ana Luisa Bourne FNP [address] [place] [address] PCP - General Family Medicine 11/01/21 Geeta Zeng PharmD 230 [place] [address] Pharmacist Internal Medicine 07/07/23 11/20/24 Priscilla Cody [address] [place] [address] Gastroenterology 11/21/24 Codie Quintero MD [address] [place] [address] Hematology and Oncology 11/21/24 Teodoro Palomino DPM [address] [place] [address] Podiatry 11/21/24 Manoj Locke MD [address] [address] General Surgery 11/21/24 [facility] Health 02/17/24 [facility] Supervisor Winter Mental Health 11/21/24 YOAN Cool (VNA) Home Monitoring Clinician 11/21/24 documented as of this encounter
--- OUTSIDE RECORDS SUMMARY | 2024-12-02 09:12 | XMS_ITS | Encounter Summary ---
Author Organization [employer] Address [address] [facility] [address] 7t [place] [address] Care Team Providers Care Aquacultural Worker Supervisor Name Role Phone Ana Luisa Bourne Primary Care Provider Geeta Zeng PharmD Unavailable [phone] Priscilla Cody Unavailable Codie Quintero MD Unavailable [phone] Teodoro Palomino DPM Unavailable Manoj Locke MD Unavailable Encounter Details Date Type Department Care Team (Late st Contact Info) Description 06/19/2022 Telephone [facility]IC[facility] 230 [place] [address] Ana Luisa Bourne FNP [address] [place], [place] [phone] Social History Tobacco Use Types Packs/Day Years [...] documented as of this encounter Care Teams Aquacultural Worker Supervisor Relationship Specialty Start Date End Date Ana Luisa Bourne FNP [address] [place] [address] PCP - General Family Medicine 11/01/21 Geeta Zeng, DaphneD [address] [place] [address] Pharmacist Internal Medicine 07/07/23 11/20/24 Priscilla Cody [address] [place] [address] Gastroenterology 11/21/24 Codie Quintero MD [address] [place] [address] Hematology and Oncology 11/21/24 Teodoro Palomino DPM [address] [place] [address] Podiatry 11/21/24 Manoj Locke MD [address] [place] [address] General Surgery 11/21/[address] [facility] Health 02/17/24 [facility] Nurse Practitioner Mental Health 11/21/24 YOAN Cool (VNA) Home Monitoring Clinician 11/21/24 documented as of this encounter
--- OUTSIDE RECORDS SUMMARY | 2024-12-02 09:12 | XMS_ITS | Clinical Summary ---
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 docusate sodium (Colace) 100 MG capsule 1 capsule as needed Active ibuprofen 600 MG tablet TAKE 1 TABLET BY MOUTH EVERY 6 HOURS NEEDED FOR PAIN 05/07/19 22 Active traZODone (Desyrel) 100 MG tablet Take 200 mg by mouth at bedtime. Dr. Gracia Active OXcarbazepine (Trileptal) 600 MG tablet Take by mouth at bedtime. Active QUEtiapine (SEROquel) 50 MG tablet Take 50 mg by mouth at bedtime. Active senna-docusate (Senokot S) 8.6-50 MG tablet take 2 tablet by oral route every day as needed for constipation 12/14/19 22 Active sertraline (Zoloft) 100 MG tablet Take 2 tablets by mouth at bed time. Active tamoxifen (Nolvadex) 20 MG chemo tablet Take 1 tablet by mouth at bed time. Active paliperidone (Invega) 6 MG 24 hr tablet take 2 tablets (12 mg) by oral route every day in the morning Active fluticasone (Flonase) 50 MCG/ACT nasal sprayIndications:L eft otitis media with effusion Administer 1-2 sprays into each nostril in the morning. Shake gently. Before first use, prime pump. After use, clean tip and replace cap. 16 g 2 10/22/19 23 Active Additional Information Patient not taking.Reported on 07/07/2023 FreeStyle lancets 1 each by Other route 2 times daily. USE TO TEST BLOOD SUGAR TWICE DAILY 100 each 11 07/01/19 24 Active Additional Information Patient not taking.Reported on 07/07/2023 Lidocaine-Menthol 4-1 % creamIndications:C hest wall pain,Acute pain of left shoulder Apply 2 g topically 3 times daily. 120 g 07/10/19 24 Active nicotine polacrilex (Nicorette) 2 MG gumIndications:Tob acco use Chew 1 each (2 mg) every 4 (four) hours if needed for smoking cessation. 100 each 3 07/16/19 24 Active nicotine (Nicoderm CQ) 21 MG/24HR patchIndications:T obacco use Apply 1 patch on the skin (one) time each day at the same time x 6 weeks. 42 patch 07/18/19 24 Active nicotine (Nicoderm CQ) 14 MG/24HR patchIndications:T obacco use After completion of 21mg/day patch: Apply 1 patch on the skin (one) time each day at the same time x 2 weeks. 14 patch 07/18/19 24 Active nicotine (Nicoderm CQ) 7 MG/24HR patchIndications:T obacco use After completion of 14mg/day patch: Apply 1 patch on the skin (one) time each day at the same time x 2 weeks. 14 patch 07/18/19 24 Active BD Pen Needle Padmini 2nd Gen 32G X 4 MM miscIndications:Ty pe 2 diabetes mellitus without complication, with long-term current use of insulin (CMS/HCC) USE WITH HUMALOG KWIKPEN TWICE A DAY 100 each 11 09/17/19 24 Active triamcinolone (Kenalog) 0.1 % creamIndications:X erosis of skin Apply topically Once per day. Mix with CeraVe cream as directed and apply after bathing or showering. 80 g 3 10/10/19 24 Active naltrexone (Depade) 50 MG tabletIndications: Alcohol use disorder, severe, dependence (CMS/HCC) Take 1 tablet (50 mg) by mouth Once per day. 90 tablet 3 12/05/19 24 025 Active ketoconazole (NIZOral) 2 % shampooIndications :Seborrheic dermatitis Apply topically 2 (two) times a week. 120 mL 2 12/29/19 24 Active atorvastatin (Lipitor) 80 MG tabletIndications: Other hyperlipidemia TAKE 1 TABLET BY MOUTH EVERYDAY AT BEDTIME 90 tablet 3 12/29/19 24 Active ipratropium-albute rol (Duo-Neb) 0.5-2.5 mg/3 mL nebulizer solutionIndication s:Hx of wheezing inhale 3 milliliter by nebulization route 4 times every day as needed for shortness of breath 90 mL 2 12/29/19 24 Active insulin lispro protamine-insulin lispro (HumaLOG MIX 75/25 KWIKPEN) (75-25) 100 UNIT/ML injectionIndicatio ns:Type 2 diabetes mellitus without complication, with long-term current use of insulin ([facility]) Inject 40 Units under the skin with breakfast and with evening meal. 3 mL 12 12/29/19 24 Active budesonide-formote rol (Symbicort) 80-4.5 MCG/ACT inhalerIndications :Hx of wheezing Inhale 2 puffs in the morning and at bedtime. Rinse mouth with water after use to reduce aftertaste and incidence of candidiasis. Do not swallow. 1 each 12/29/19 24 025 Active albuterol (Ventolin HFA) 108 (90 Base) MCG/ACT inhalerIndications :Hx of wheezing Inhale 2 puffs Every 4-6 hours as needed for wheezing or shortness of breath. 18 g 11 12/29/19 24 Active Alcohol Swabs (Alcohol Prep) 70 % pads USE TO TEST BLOOD SUGAR TWICE DAILY 100 each 11 02/18/20 24 Active ferrous sulfate 325 (65 Fe) MG tabletIndications: Other iron deficiency anemia TAKE 1 TABLET BY MOUTH EVERY OTHER DAY 45 tablet 04/02/19 25 Active dapagliflozin (Farxiga) 5 MGIndications:Type 2 diabetes mellitus without complication, with long-term current use of insulin (CMS/[facility]) TAKE 1 TABLET BY MOUTH EVERY MORNING 90 tablet 3 06/16/19 25 Active lisinopril 5 MG tabletIndications: Primary hypertension TAKE 1 TABLET BY MOUTH EVERY DAY 90 tablet 1 08/07/19 25 Active emtricitabine-teno fovir DF (Truvada) 200-300 MG tablet One tablet by mouth daily 90 tablet 09/28/19 25 Active doxycycline (Vibra-Tabs) 100 MG tablet Take two tablets together up to 72h after sex for infection prevention. Do not take more than one dose daily. 60 tablet 09/28/19 25 Active FREESTYLE LITE test strip USE DIRECTED TO TEST TWICE DAILY 50 each 1 10/06/19 25 Active metFORMIN (Glucophage) 1000 MG tabletIndications: Type 2 diabetes mellitus without complication, with long-term current use of insulin (CMS/HCC) TAKE 1 TABLET BY MOUTH TWICE DAILY WITH BREAKFAST AND DINNER 180 tablet 1 10/27/19 25 Active topiramate 50 MG tablet Take 50 mg by mouth in the morning and 50 mg in the evening. Active topiramate (Topamax) 25 MG tablet Take 1 tablet by mouth every 12 (twelve) hours. 025 Discontin ued(Dose adjustmen t) Continuous Blood Gluc Sheet Folder (FreeStyle Jaylan 2 [place]) deviceIndications: Type 2 diabetes mellitus without complication, with long-term current use of insulin (CMS/HCC) Scan sensor every 8 hours 1 each 04/20/19 24 025 Discontin ued(Thera py completed ) OLANZapine (ZyPREXA) 5 MG tablet Take 1 tablet by mouth at bedtime. 11/17/19 24 025 Discontin ued(Thera py completed ) Continuous Glucose Sensor (FreeStyle Jaylan 2 Sensor) miscIndications:Ty pe 2 diabetes mellitus without complication, with long-term current use of insulin (CMS/HCC) USE DIRECTED. CHANGE EVERY 14 DAYS 2 each 11 06/26/19 25 025 Discontin ued(Thera py completed ) Active Problems Problem Noted Date Diagnosed Date S/P colon resection 11/21/2024 Overview (11/21/2024): Apr 2021 - colon resection for cecal polyp, sessile serrated poylp w/o high- grade dysplasia or carcinoma. Last colonoscopy: Jan 2024. Repeat 2-3 year d/t hx adenomatous polyps and sub optimal prep on colonoscopy Primary hypertension 12/30/2023 Overview (12/30/2023): Cont lisinopril 5mg daily BP readings well controlled Hx of wheezing 12/30/2023 Overview (12/30/2023): Referred for PFT Feb 2022 Hx of wheezing and SOB primarily with URI (+) hx tobacco use, encouraged smoking cessation efforts Assessment & Plan (11/21/2024 3:49 PM EDT): Continues with Symbicort and albuterol PRN Would benefit from further eval, consider further discussion at f/up appt Assessment & Plan (12/30/2023 8:55 PM EDT): Continues with Symbicort and albuterol PRN Would benefit from further eval and discussion in subsequent appt. Refilled inhalers on PRN basis before trip. Anxiety 12/18/2023 Cocaine use disorder 07/22/2023 Hx of syphilis 04/20/2023 Overview (04/20/2023): Following with [facility] ID - Dr. Nichols Consult plan July 2022: Repeat RPR Q6-12 months. Tx if titer > 1:16 Assessment & Plan (11/21/2024 3:47 PM EDT): - Reactive titer 1:2 in September 2024 Healthcare maintenance 12/29/2022 Overview (11/21/2024): Mammo: history of left breast CA. Mammo BIRADS 2 on 07/21/24 Pap: HPV neg 06/05/21, followed by Estela Hung CNM Colonoscopy: 01/16/24 at [facility] - repeat 2-3 years d/t adenoma polyps and sub optimal prep LDCT: referred to [facility] September 2023 Dental: referral to [facility] Dental Apr 2023 Last PE: 11/19/24 Hep B immune status: not-immune as of 09/2024 despite 3-dose Hep B series. Consider Heplisav 2-dose series. Assessment & Plan (04/20/2023 6:48 PM EST): Reviewed routine screening above with pt and Isara. Plan for follow up with GI and [facility] [employer] Prurigo nodularis 11/01/2022 Tobacco use 03/25/2022 Assessment & Plan (11/21/2024 3:49 PM EDT): - Encouraged smoking cessation resources such as pharmacomtherapy, [facility] smoking cessation group, and [facility] pharmacy smoking cessation clinic -Cigg/day: 40 -Age started: 20 -Total years smokin -Pack year history: > 30 -Cont NRT patches and gum. Reviewed med safety and SE. -Referred to [facility] LDCT for lung CA screening on 09/17/23 Assessment & Plan (09/17/2023 4:38 PM EDT): - Encouraged smoking cessation resources such as pharmacomtherapy, [facility] smoking cessation group, and [facility] pharmacy smoking cessation clinic -Cigg/day: 40 -Age started: 20 -Total years smokin -Pack year history: > 30 -Cont NRT patches and gum. Reviewed med safety and SE. -Referred to [facility] LDCT for lung CA screening on 09/17/23 Assessment & Plan (04/20/2023 6:49 PM EST): - Encouraged smoking cessation resources such as pharmacomtherapy, [facility] smoking cessation group, and [facility] pharmacy smoking cessation clinic - Discuss further during follow up Assessment & Plan (03/25/2022 2:02 PM EST): -Continue with lozenges PRN -Follow up if interested in additional smoking cessation resources Gastroesophageal reflux disease 03/22/2022 Iron deficiency anemia 03/22/2022 Assessment & Plan (11/21/2024 3:23 PM EDT): -Previously followed by Heme/Onc with weekly iron infusions starting on 02/21/21 x 8 weeks -Continues on ferrous sulfate PO Assessment & Plan (12/30/2023 8:57 PM EDT): [...] specialist Type 2 diabetes mellitus 03/22/2022 Overview (11/21/2024): Lab Results Component Value Date HGBA1C 13.7 (A) 11/19/2024 HGBA1C 9.5 (A) 12/29/2023 HGBA1C 8.7 (A) 09/17/2023 HGBA1C 7.5 (A) 07/07/2023 HGBA1C 10.4 (A) 04/18/2023 HGBA1C 11.6 (H) 06/14/2020 -Continue humalog mix 75/25 40 units BID -Continue farxiga 5mg daily -Continue metformin 1000mg BID Assessment & Plan (11/21/2024 3:44 PM EDT): -BG not well controlled, increase in A1c compared to last year -Unclear med adherence, therefore hesitant to make med adjustments today -Plan: referral to [facility] for further management of T2DM and consideration of CGM restart -Podiatry: following with Dr. Palomino -Encouraged reduction of sweets/soda/high-carb items -Follow up precautions Assessment & Plan (12/30/2023 8:23 PM EDT): [...] of breast cancer 08/25/2020 Assessment & Plan (11/21/2024 3:23 PM EDT): -DCIS (Ductal carcinoma in situ) of the left breast -Followed by [facility] Heme/Onc - Dr. Quintero -She is s/p lumpectomy, completed radiation therapy. -Continues on tamoxifen 20mg daily x 5 years (until 07/13/2025) -Denies any med SE -Plan for annual pelvic exam and annual eye exams Assessment & Plan (12/30/2023 8:43 PM EDT): -DCIS (Ductal carcinoma in situ) of the left breast -Followed by [facility] Heme/Onc - Dr. Quintero -She is S/p lumpectomy, completed radiation therapy. -Continues on tamoxifen 20mg daily x 5 years (until 07/13/2025) -Denies any med SE -Plan for annual pelvic exam and annual eye exams Assessment & Plan (04/20/2023 6:31 PM EST): -DCIS (Ductal carcinoma in situ) of the left breast -Followed by [facility] Heme/Onc - Dr. Quintero -She is S/p lumpectomy, completed radiation therapy. -Continues on tamoxifen 20mg daily x 5 years (until 07/13/2025) -Denies any med SE -Plan for annual pelvic exam and annual eye exams Assessment & Plan (12/29/2022 5:58 PM EDT): -Followed by [facility] Heme/Onc - Dr. Quintero -She is S/p [...] SE Other hyperlipidemia 06/18/2018 Assessment & Plan (11/21/2024 3:42 PM EDT): -Continue atorvastatin 80mg nightly -Rec lifestyle interventions Lab Results Component Value Date CHOL 201 (H) 07/30/2023 TRIG 232 (H) 07/30/2023 TRIG 94 03/27/2022 HDL 44 07/30/2023 LDLCHOLCAL 111 (H) 07/30/2023 Assessment & Plan (12/30/2023 8:42 PM EDT): [...] 06/18/2018 Subclinical hypothyroidism 06/18/2018 Assessment & Plan (11/21/2024 3:44 PM EDT): -Recheck TSH Assessment & Plan (04/20/2023 6:38 PM EST): -Recheck TSH Assessment & Plan (03/25/2022 1:51 PM EST): -Recheck TSH Constipation 05/28/2018 Assessment & Plan (11/21/2024 3:46 PM EDT): - Following with [facility] GI - Meds include: dulcolax, senna, colace, and miralax - Encouraged increased fiber intake and activity Assessment & Plan (03/25/2022 1:54 PM EST): -Continue following with management through GI Schizoaffective disorder 05/28/2018 Assessment & Plan (11/21/2024 3:48 PM EDT): -Denies SI/HI/thoughts of self harm -Followed by Dr. Slade Gracia -Continue with med management through psych team: Invega 12mg PO daily Trazodone 200mg PO at bedtime PRN Oxcarbazepine 600mg PO at bedtime Zoloft 100mg PO daily Seroquel 50mg PO at bedtime Topamax 50mg BID Previously following with [facility] and [facility]. Referral to [facility] Forms team on 09/17/23 to assist with ELIGIBILITY AND OCCUPANCY INTERVIEWER eval. Assessment & Plan (09/17/2023 4:40 PM EDT): -Denies SI/HI/thoughts of self harm -Followed by Dr. Slade Gracia -Continue with med management through psych team: Invega 12mg PO daily Trazodone 200mg PO at bedtime PRN Oxcarbazepine 600mg PO at bedtime Zoloft 200mg PO daily Seroquel 100mg PO at bedtime Topamax 25mg BID Previously following with [facility] and [facility]. Referral to [facility] Forms team on 09/17/23 to assist with ELIGIBILITY AND OCCUPANCY INTERVIEWER eval. Assessment & Plan (04/20/2023 6:37 PM EST): -Denies SI/HI/thoughts of self harm -Followed by Dr. Slade Gracia -Continue with med management through psych team: Invega 12mg PO daily Trazodone 200mg PO at bedtime PRN Oxcarbazepine 600mg PO at bedtime Zoloft 200mg PO daily Seroquel 100mg PO at bedtime Topamax 25mg BID Assessment & Plan (03/25/2022 1:53 PM EST): -Denies SI/HI/thoughts of self harm -Followed by Dr. Slade Gracia -Continue with med management through psych team: Invega 12mg PO daily Trazodone 200mg PO at bedtime PRN Oxcarbazepine 600mg PO at bedtime Zoloft 200mg PO daily Seroquel 100mg PO at bedtime Topamax 25mg BID Resolved Problems Problem Noted Date Diagnosed Date Resolved Date Body aches 11/18/2023 12/30/2023 Alcohol use disorder, mild, in early remission 07/22/2023 11/21/2024 History of alcohol use 07/10/202307/30 HANG (generalized [...] organization. Date Type Department Care Team Description 12/01/2024 9:00 AM EDT Office Visit [facility] [address] [place] [id number] Keith Hernandez MD Alcohol use disorder, severe, dependence (CMS/HCC) (Primary Dx) 12/01/2024 Travel 11/30/2024 10:15 AM EDT Office Visit [facility] [address] [place] [phone] Mojgan Clarke MD Stress (Primary Dx) 11/30/2024 Patient Outreach [address] [address] Hernan Lazo Recovery Supports 11/30/[address] [address] Ana Luisa Bourne FNP 11/30/2024 Travel 11/24/2024 Orders Only [facility] [address] [place] [address] Laverne Penaloza MD Type 2 diabetes mellitus without complication, with long-term current use of insulin (CMS/HCC) (Primary Dx) 11/24/2024 Telephone [facility] [address] [place] [address] Angeline Georges, PharmD 11/22/[address] [address] Ana Luisa Bourne FNP 11/19/2024 9:30 AM EDT Office Visit [facility] [address] [place] [address] Ana Luisa Bourne FNP Encounter for routine history and physical examination of adult (Primary Dx); Type 2 diabetes mellitus without complication, with long-term current use of insulin (CMS/HCC); Primary hypertension; Hernia of abdominal wall; Schizoaffective disorder, unspecified type (CMS/HCC); Other constipation; Healthcare maintenance; S/P colon resection; History of breast cancer; Other iron deficiency anemia; Other hyperlipidemia; Subclinical hypothyroidism; Hx of syphilis; Hx of wheezing; Tobacco use 11/19/2024 Travel 11/18/2024 Telephone [facility] [address] [place] [address] Ana Luisa Bourne FNP chart prep 11/12/2024 1:00 PM EDT Office Visit [facility] [address] [place] [address] Juli Lutz, OD Type 2 diabetes mellitus without ophthalmic manifestations (CMS/[facility]) (Primary Dx); Myopia of both eyes; Presbyopia; Dry eyes; Age-related nuclear cataract of both eyes 11/12/2024 Travel 11/12/2024 Patient Outreach [address] [address] Ana Luisa Bourne FNP Pre-visit Planning (Pre visit planning LVM ) 11/09/2024 Patient Outreach [address] [address] Hernan Lazo [facility] 10/28/2024 Patient Outreach [address] [address] Codey Seth Recovery Supports 10/27/[address] [address] Ana Luisa Bourne FNP ER Follow-up 10/25/2024 Patient Outreach [address] [address] Liya Locke Recovery Supp[facility] 10/25/2024 Refill [facility] [address] [place] [address] Ana Luisa Bouren FNP Type 2 diabetes mellitus without complication, with long-term current use of insulin (CMS/HCC) 10/14/2024 Orders Only [facility] External Provider, [facility] 10/12/2024 Telephone [facility] [address] [place] [address] Ana Luisa Bourne FNP Results 10/11/2024 1:00 PM EDT Office Visit [facility] [address] [place] [address] Lexi Mancera CNM Urinary symptom or sign (Primary Dx); Candidiasis of vulva and vagina; Encounter for pre-exposure prophylaxis for HIV; Asymptomatic microscopic hematuria 10/11/2024 Patient Outreach [address] [address] Liya Locke [facility] 10/11/[address] [address] Guera Chavez RN Blood Sugar Problem; Nurse Triage 10/11/2024 Travel 10/08/2024 Patient Outreach [address] [address] Kain Gaitan [facility] 10/08/2024 Telephone [facility] [address] [place] [address] Vera Zarate [place] 10/07/2024 Patient Outreach [address] [address] Codey Seth 10/06/2024 9:00 AM EDT Office Visit [address] [address] Keith Hernandez MD Alcohol use disorder, severe, dependence (CMS/HCC) (Primary Dx) 10/06/2024 Travel 10/04/2024 Refill [facility] [address] [place] [address] Ana Luisa Bourne FNP 10/04/2024 Patient Outreach [address] [address] Liya Locke [facility] 09/27/2024 10:00 AM EDT Office Visit [address] [address] Lexi Mancera CNM Urinary symptom or sign (Primary Dx); Encounter for immunization; At high risk for exposure to HIV 09/27/2024 Patient Outreach [address] [address] Burak Jerez [facility] 09/27/2024 Travel 09/27/2024 Results Follow-Up [address] [address] Lexi Mancera CNM Confirmatory Syphilis Profile 09/24/2024 Results Follow-Up [facility] [address] [place] [address] Ana Luisa Bourne FNP T-SPOT .TB 09/24/[address] [address] Lexi Mancera CNM CHART PREP 09/21/2024 Results Follow-Up [address] [address] Lexi Mancera CNM Bacterial Vaginosis Panel 09/20/2024 11:00 AM EDT Office Visit [address] [address] Lexi Mancera CNM Candidiasis of vulva and vagina (Primary Dx); Type 2 diabetes mellitus without complication, with long-term current use of insulin ([facility]); Screening examination for venereal disease; Urinary symptom or sign; Encounter for pre-exposure prophylaxis for HIV 09/20/2024 Travel 09/16/2024 Telephone [facility] [address] [place] [address] Ana Luisa Bourne FNP Lab Orders 09/07/2024 Patient Outreach [address] [address] Burak Jerez [facility] from Last 3 Months Immunizations Immunization Administration Dates Next Due Hep A, Adult 05/17/2021,10/14/2018 Hep B, adult 05/17/2021,10/14/2018,06/18/2018 HepB-CpG 09/27/2024 INFLUENZA VACCINE QUADRIVALE NT RECOMBINANT PRESERVATIVE FREE RIV4 12/30/2019 Influenza Whole 11/20/2011,12/21/2010 Influenza injectable quadriv alent preservative free 12/23/2022,03/22/2022,11/30/2018 Influenza, IIV3, injectable 01/10/2021,1 04/13/2016,12/14/2015,03/29,11/24/2012,01/24/2010 Influenza, seasonal, injecta ble, preservative free 11/17/2023,01/07/2018,05/19/2016,11/25 Pfizer Covid-19 Vaccine 12+ 11/27/2023, Pfizer Covid-19 Vaccine 12+ Bivalent 03/22/2022 Pneumococcal [...] Sign Reading Time Taken Comments Blood Pressure 112/78 11/19/2024 10:19 AM EDT Pulse 84 11/19/2024 10:19 AM EDT Temperature 36.9 C (98.4 F) 11/19/2024 10:19 AM EDT Respiratory Rate 20 11/19/2024 10:19 AM EDT Oxygen Saturation 96% 10/11/2024 12:55 PM EDT Inhaled Oxygen Concentration - - Weight 60.3 kg (133 lb) 11/19/2024 10:19 AM EDT Height 162.6 cm (5' 4 ) 11/19/2024 10:19 AM EDT Body Mass Index 22.83 11/19/2024 10:19 AM EDT Plan of Treatment Health Maintenance Due Date Last Done Comments CT Colonography 1972 Dental Prophylaxis 1972 Dental X-Ray: Bitewings 1972 FIT DNA/Cologuard 1972 FIT 1972 FOBT 1972 Sigmoidoscopy 1972 Family Planning (PISQ) 07/06/1987 Zoster Vaccines (1 of 2) 2022 Dental Oral Exam 12/27/2023 06/26/2023 Lipid Panel 07/29/2024 07/30/2023, 03/10, 02/23/2021, Additional history exists Influenza Vaccine (#1) 2024 , 12/23/2022, 03/22/2022, Additional history exists Diabetes: Hemoglobin A1C 02/18/20252 025, 12/29/2023, 09/17/2023, Additional history exists Depression Monitoring 05/22/2025 11/22/2024, 025 Mammogram 07/21/2025 07/21/2024, 04/11, 05/06/2023, Additional history exists Alcohol/Substance Use Screening 08/05/2025 08/05/2024 Disability Screening 09/27/2025 09/27/2024 SDOH Screening 09/27/2025 09/27/2024 Diabetes: Foot Exam 10/27/2025 10/27/2024 Tobacco Screening 11/12/2025 11/12/2024 Colonoscopy 01/15/2026 01/16/2024 Colorectal Cancer Screening 01/15/2026 Cervical Cancer Screening 06/05/2026 HPV/Cotest 06/05/2026 06/05/2021 Pap Smear 06/05/2026 Dental X-Ray: Full Mouth 06/26/2026 06/26/2023 Eye Exam 11/12/2026 11/12/2024, 09/0 07/2024, 11/12/2024, Additional history exists DTaP/Tdap/Td Vaccines (2 - Td or Tdap) 05/28/2028 05/28/2018, 07/06/2008 RSV Patients and Patients Aged 60 years or older (1 - 1-dose 75+ series) 07/06/2047 Hepatitis A Vaccines Aged Out 05/17/2021, 10/15/19 19 No longer eligible based on patient's age to complete this topic Pneumococcal Vaccine: 50+ Years Completed 04/18/2023, 05/28/2018, 11/29/2015, Additional history exists COVID-19 Vaccine Completed 11/27/2023, , 03/22/2022, Additional history exists HIV Screening Completed 09/20/2024, 06/07/2022 Hepatitis C Screening Completed 09/20/2024, 023 Hepatitis B Vaccines Completed 09/27/2024, 05/17/2021, 10/14/2018, [...] Procedure Name Priority Date/Time Associated Diagnosis Comments POCT GLYCATED HEMOGLOBIN, TOTAL Routine 11/19/2024 10:20 AM EDT Type 2 diabetes mellitus without complication, with long-term current use of insulin ([facility]) POCT GLUCOSE Routine 11/19/2024 10:20 AM EDT Type 2 diabetes mellitus without complication, with long-term current use of insulin ([facility]) FL SMALL BOWEL FOLLOW THROUGH Routine 10/14/2024 11:20 AM EDT SARS COV2/INFLUENZA A/B AND RSV RNA QL NAAT Routine 10/14/2024 8:[address] ABDOMEN PELVIS W CONTRAST Routine 10/14/2024 7:58 AM EDT POCT GLUCOSE Routine 10/11/2024 2:42 PM EDT Type 2 diabetes mellitus without complication, with long-term current use of insulin ([facility] H[facility]) POCT URINALYSIS DIPSTICK Routine 10/11/2024 1:01 PM EDT Urinary symptom or sign POCT URINALYSIS DIPSTICK Routine 09/27/2024 10:16 AM EDT Urinary symptom or sign POCT WET MOUNT/LINDSAY Routine 09/20/2024 11 :11 AM EDT Candidiasis of vulva and vagina CHLAMYDIA/N. GONORRHOEAE RNA, TMA, UROGENITAL Routine 09/20/2024 11:11 AM EDT Screening examination for venereal disease BACTERIAL VAGINOSIS PANEL Routine 09/20/2024 11:11 AM EDT Screening examination for venereal disease CONFIRMATORY SYPHILIS PROFILE Routine 09/20/2024 11:05 AM EDT CREATININE, SERUM Routine 09/20/2024 11: 05 AM EDT UREA NITROGEN (BUN) Routine 09/20/2024 1 1:05 AM EDT HEPATIC FUNCTION PANEL Routine 11:05 AM EDT Encounter for pre-exposure prophylaxis for HIV HEPATITIS C AB W/REFL TO HCV RNA, QN, PCR Routine 09/20/2024 11:05 AM EDT Screening examination for venereal disease HEPATITIS B SURFACE ANTIGEN, EIA Routine 09/20/2024 11:05 AM EDT Screening examination for venereal disease HEPATITIS B SURFACE ANTIBODY, QUALITATIVE Routine 09/20/2024 11:05 AM EDT Screening examination for venereal disease HEPATITIS B CORE AB TOTAL Routine 09/20/2024 11:05 AM EDT Screening examination for venereal disease SYPHILIS SCREEN Routine 09/20/2024 11:05 AM EDT Screening examination for venereal disease HIV 1/2 ANTIGEN/ANTIBODY, FOURTH GENERATION W/RFL Routine 09/20/2024 11:05 AM EDT Screening examination for venereal disease T-SPOT(R).TB Routine 09/20/2024 11:05 AM EDT Screening due POCT URINALYSIS DIPSTICK Routine 09/20/2024 10:46 AM EDT Type 2 diabetes mellitus without complication, with long-term current use of insulin ([facility]/HCC) CULTURE, URINE, ROUTINE Routine 09/20/2024 10:42 AM EDT Type 2 diabetes mellitus without complication, with long-term current use of insulin (CMS/HCC) BI MAMMOGRAM SCREENING TOMOSYNTHESIS BILATERAL Routine 07/21/2024 12:45 PM EDT HM COLONOSCOPY Routine 01/16/2024 2:15 PM EST LIPID PANEL, STANDARD Routine 07/30/2023 1:33 PM EDT Type 2 diabetes mellitus without complication, with long-term current use of insulin ([facility]) PANORAMIC RADIOGRAPHIC IMAGE Routine 06/26/2023 2:00 PM EDT Edentulism COMPREHENSIVE ORAL EVALUATION - NEW OR ESTABLISHED PATIENT Routine 06/26/2023 2:00 PM EDT Edentulism ZZZ HISTORICAL HPV E6/E7 RFLX MARIBELL 16 Routine 06/05/2021 3:35 PM EDT from Last 3 Months or Most Recently Relevant to Health Maintenance Results * (ABNORMAL) POCT Hgb A1c (11/19/2024 10:20 AM EDT) Hemoglobin A1C 13.7(A) 4.0 - 5.7 % QC Media Lot # [id number] Lot# Expiration Date Blood 11/19/2024 10:2 0 AM EDT us Ana Luisa Bourne [employer]ER POINT OF CARE TEST ENTER/EDIT ORDERABLES Final Result * (ABNORMAL) POCT Glucose (11/19/2024 10:20 AM EDT) Only the most recent of2 resultswithin the time period is included. Glucose Blood, POC 286(A) 60 - 200 mg/dL QC Media Lot # [id number] Lot# Expiration Date Blood Capillary blood specimen / Unknown 11/19/2024 10:20 AM EDT Ana Luisa Bourne [employer] POINT OF CARE TEST ENTER/EDIT ORDERABLES Final Result * FL SMALL BOWEL FOLLOW THROUGH (10/14/2024 11:20 AM EDT) Anatomical Region Laterality Modality Radiographic Kristi ging 10/14/2024 11:2 0 AM EDT Narrative 10/14/2024 4:19 PM EDT [address] [address] Fluoroscopy Report Signed Patient: Hodan Lopez MR#: [id number] : 1970 Acct:[id number] Age/Sex: 54 / F ADM Date: 10/14/24 Loc: [facility]- Attending Dr: Carmen Glover PA-C Ordering Physician: Carmen Glover PA-C Date of Service: 10/14/24 Procedure(s): FL small bowel follow through Accession Number(s): [id number] cc: [facility]; Carmen Glover PA-C EXAMINATION: FL SMALL BOWEL SERIES CLINICAL INFORMATION: SBO with concern for internal hernia COMPARISON: None. TECHNIQUE: Following a railroad brake operator image of the abdomen, contrast was administered orally, and interval abdominal radiographs were performed to assess for contrast progression through the small bowel. Following contrast transit through the small bowel and into the colon, the patient was placed on the fluoroscopy table, and multiple spot images were obtained. FINDINGS: Fell Cutter image of the abdomen demonstrates a normal bowel gas pattern with mild scattered stool in left colon. There is excreted urinary contrast and urinary bladder from earlier CT abdomen exam 10/14/2034 at 8:20 PM There is normal transit time of 50-50 dilated oral Gastrografin contrast material through the small bowel, with contrast present in the colon by 1 hour 30 minutes. Small bowel loops are of normal caliber throughout the abdomen and pelvis. The jejunal and ileal fold patterns are normal, without evidence of abnormal thickening. No fixed regions of luminal narrowing are seen to suggest stricturing. The terminal ileum demonstrates a normal appearance. FLUOROSCOPY TIME: None DOSE AREA PRODUCT: None uGy-m2 (microgray-meter squared) FL/FL small bowel follow through IMPRESSION: Normal small bowel 50-50 diluted Gastrografin series. Electronically signed by: Ricardo Harrington MD 10/14/2024 04:16 PM EDT Dictated By: Ricardo Harrington MD Signed By: <Electronically signed by Ricardo Harrington MD in OV> 10/14/24 1616 DD/ 1120 TD/TT: 10/14/24 1345 Kettle Room Helper: [facility] Procedure Note Donotuseinterpreter, Image - 10/14/[address] [address] Fluoroscopy Report Signed Patient: Lianna Lopez#: [id number] : 1970Acct:[id number] Age/Sex: 54 / FADM Date: 10/14/24 Loc: [place] [address]: Carmen Glover PA-C Ordering Physician: Carmen Glover PA-C Date of Service: 10/14/24 Procedure(s): FL small bowel follow through Accession Number(s): [id number] cc: [facility]; Carmne Glover PA-C EXAMINATION: FL SMALL BOWEL SERIES CLINICAL INFORMATION: SBO with concern for internal hernia COMPARISON: None. TECHNIQUE: Following a railroad brake operator image of the abdomen, contrast was administered orally, and interval abdominal radiographs were performed to assess for contrast progression through the small bowel. Following contrast transit through the small bowel and into the colon, the patient was placed on the fluoroscopy table, and multiple spot images were obtained. FINDINGS: Fell Cutter image of the abdomen demonstrates a normal bowel gas pattern with mild scattered stool in left colon. There is excreted urinary contrast and urinary bladder from earlier CT abdomen exam 10/14/2034 at 8:20 PM There is normal transit time of 50-50 dilated oral Gastrografin contrast material through the small bowel, with contrast present in the colon by 1 hour 30 minutes. Small bowel loops are of normal caliber throughout the abdomen and pelvis. The jejunal and ileal fold patterns are normal, without evidence of abnormal thickening. No fixed regions of luminal narrowing are seen to suggest stricturing. The terminal ileum demonstrates a normal appearance. FLUOROSCOPY TIME: None DOSE AREA PRODUCT: None uGy-m2 (microgray-meter squared) FL/FL small bowel follow through IMPRESSION: Normal small bowel 50-50 diluted Gastrografin series. Electronically signed by: Ricardo Harrington MD 10/14/2024 04:16 PM EDT Dictated By: Ricardo Harrington MD Signed By: <Electronically signed by Ricardo Harrington MD in OV> 10/14/24 1616 DD/ 1120 TD/TT: 10/14/24 1345 Kettle Room Helper: [facility] External Provider IMG FLU OROSCOPY PROCEDURES Final Result * SARS-CoV-2 RNA, Influenza A/B, and RSV RNA, Ql NAAT (10/14/2024 8:34 AM EDT) Influenza A PCR NEGATIVE Negative [facility] Influenza B PCR NEGATIVE Negative [facility] Resp Syncy Virus RNA Qual PCR NEGATIVE Negative [facility] SARS COV2 PCR NEGATIVE Negative [facility] Comment:All test results mus t be correlated with clinical findings.Negative results do not preclude SARS-CoV2, influenza Avirus, influenza B virus and/or RSV infectionand should not be used as the sole basis for treatment orother patient management decisions. Negative results must becombined with clinical observations, patient history, andepidemiological information.This test has not been evaluated for monitoring treatment ofinfection.This test has been authorized by the FDA under an EmergencyUse Authorization (EUA) for use by authorized laboratories.Testing performed on the [employer] GeneXpert utilizingreal-time RT-PCR.All SARS CoV2 and positive influenza A/B results arereported to [facility]. 10/14/2024 8:34 AM EDT 10/14/2024 8:41 AM EDT Generic External Data Provider LAB MICROBIOLOGY - GENERAL ORDERABLES Final Result [facility] [address] [place] [phone] * CT Abdomen Pelvis w/ Contrast (10/14/2024 7:58 AM EDT) Anatomical Region Laterality Modality Body, Pelvis, Abdomen Computed T omography 10/14/2024 7:58 AM EDT Narrative 10/14/2024 9:35 AM EDT [address] [address] [address] Scan Report Signed Patient: Hodan Lopez MR#: [id number] : 1970 Acct:[id number] Age/Sex: 54 / F ADM Date: 10/14/24 Loc: [facility].ED Attending Dr: Ordering Physician: Sasha Almanza Date of Service: 10/14/24 Procedure(s): CT abdomen pelvis w IV con Accession Number(s): [id number] cc: Sasha Almanza; [facility] Report Number: [id number]: Total DLP = 503.00 mGy-cm EXAMINATION: CT ABDOMEN AND PELVIS WITH CONTRAST CLINICAL INFORMATION: Abdominal pain. COMPARISON: February 24, 2024 TECHNIQUE: Multidetector volumetric images were obtained from the superior aspect of the liver through the pubic symphysis following administration 85 mL of Omnipaque 350 intravenous contrast. Sagittal and coronal reformatted images were obtained on the technologist's workstation. Oral contrast: No This CT examination was performed using dose optimization techniques as appropriate, variously including the following: *Automated exposure control *Adjustment of mA and/or kV according to patient size (this includes techniques or standardized protocols for targeted exams where dose is matched to indication/reason for exam; i.e. extremities or head) *Use of iterative reconstruction technique DLP: 503 mGy centimeter. FINDINGS: LUNG BASES: No gross acute airspace disease. LIVER, GALLBLADDER, AND BILIARY TREE: Liver measures 15 cm. No focal lesion. Portal veins, and intrahepatic portion of the IVC are patent. No intrahepatic biliary ductal dilatation. Cholecystectomy. Common bile duct measures 9 mm. PANCREAS: No focal lesion. No main pancreatic ductal dilatation. 2 mm hypodensity, body of the pancreas. No peripancreatic fluid collection. SPLEEN: 9 cm. No focal lesion. ADRENAL GLANDS: No nodular lesion. KIDNEYS AND URETERS: No hydronephrosis. No gross nephrolithiasis. No enhancing renal mass. 9 mm exophytic fluid density, posterior midportion of the left kidney. Subcentimeter cyst, right kidney. BLADDER: Wall thickening. GASTROINTESTINAL TRACT: Swelling of the mesenteric involving the proximal small bowel loops. There is collapsed appearance of the distal ileal loops. Gas and fluid-filled proximal small bowel loops. There is protrusion of the mid to distal small bowel loops into the umbilical's. Sutures at the hepatic colonic flexure. No pneumatosis intestinalis. There is abundant stool within the large intestine. Subsegmental areas of the intestinal wall thickening in the left hemiabdomen. Trace amount of ascites. No peripheral enhancing fluid collection. No pneumoperitoneum. Hiatal hernia.. ABDOMINAL WALL: Fat-containing umbilical and supraumbilical and epigastric hernias. LYMPH NODES: No gross mesenteric or retroperitoneal lymphadenopathy. VASCULAR: Mixed plaques in the distal abdominal aorta wall and iliac arteries without aneurysm or dissection. Prominent pelvic vessels seem to the left adnexa. There is a focal narrowing of the left main renal vein secondary to superior mesenteric artery/abdominal aorta. PELVIC VISCERA: Uterus in in different/retroflexion with heterogeneous enhancing pattern and focal decreased density intramural lesion posterior body of the uterus. There is prominent vessels in the periphery of the uterus and towards the left adnexa. OSSEOUS STRUCTURES: Grade 1 anterolisthesis secondary to degenerative changes at L5-S1 resulting in bilateral neuroforamina stenosis. There is vacuum phenomenon at L5-S1. Bone marrow inhomogeneity. Irregularities in the acetabulum likely related to patient's motion artifact. CT/CT abdomen pelvis w IV con IMPRESSION: Concerning internal hernia, right hemiabdomen with the incomplete/intermittent bowel obstruction. Inflammatory bowel disease such as Crohn's cannot be excluded. Loculated the umbilical and supraumbilical and epigastric mostly fat-containing hernias. Concerning pelvic congestion, left adnexa. Probable uterine fibroid. Inflammatory versus infectious process in the urinary bladder cannot be excluded. Hiatal hernia. Fleischner guidelines were followed. Electronically signed by: Sam Tavarez MD 10/14/2024 09:32 AM EDT Dictated By: Sam Anne MD Signed By: <Electronically signed by Sam Bal MD in OV> 10/14/24 0932 DD/ 0758 TD/TT: 10/14/24 0908 Kettle Room Helper: Procedure Note Donotuseinterpreter, Image - 10/14/[address] [place] [address] [address] Scan Report Signed Patient: Lianna Lopez#: [id number] : 1970Acct:[id number] Age/Sex: 54 / FADM Date: 10/14/24 Loc: [facility] Attending Dr: Ordering Physician: Sasha Almanza Date of Service: 10/14/24 Procedure(s): CT abdomen pelvis w IV con Accession Number(s): [id number] cc: Sasha Almanza; [facility] Report Number: [id number]: Total DLP = 503.00 mGy-cm EXAMINATION: CT ABDOMEN AND PELVIS WITH CONTRAST CLINICAL INFORMATION: Abdominal pain. COMPARISON: February 24, 2024 TECHNIQUE: Multidetector volumetric images were obtained from the superior aspect of the liver through the pubic symphysis following administration 85 mL of Omnipaque 350 intravenous contrast. Sagittal and coronal reformatted images were obtained on the technologist's workstation. Oral contrast: No This CT examination was performed using dose optimization techniques as appropriate, variously including the following: *Automated exposure control *Adjustment of mA and/or kV according to patient size (this includes techniques or standardized protocols for targeted exams where dose is matched to indication/reason for exam; i.e. extremities or head) *Use of iterative reconstruction technique DLP: 503 mGy centimeter. FINDINGS: LUNG BASES: No gross acute airspace disease. LIVER, GALLBLADDER, AND BILIARY TREE: Liver measures 15 cm. No focal lesion. Portal veins, and intrahepatic portion of the IVC are patent. No intrahepatic biliary ductal dilatation. Cholecystectomy. Common bile duct measures 9 mm. PANCREAS: No focal lesion. No main pancreatic ductal dilatation. 2 mm hypodensity, body of the pancreas. No peripancreatic fluid collection. SPLEEN: 9 cm. No focal lesion. ADRENAL GLANDS: No nodular lesion. KIDNEYS AND URETERS: No hydronephrosis. No gross nephrolithiasis. No enhancing renal mass. 9 mm exophytic fluid density, posterior midportion of the left kidney. Subcentimeter cyst, right kidney. BLADDER: Wall thickening. GASTROINTESTINAL TRACT: Swelling of the mesenteric involving the proximal small bowel loops. There is collapsed appearance of the distal ileal loops. Gas and fluid-filled proximal small bowel loops. There is protrusion of the mid to distal small bowel loops into the umbilical's. Sutures at the hepatic colonic flexure. No pneumatosis intestinalis. There is abundant stool within the large intestine. Subsegmental areas of the intestinal wall thickening in the left hemiabdomen. Trace amount of ascites. No peripheral enhancing fluid collection. No pneumoperitoneum. Hiatal hernia.. ABDOMINAL WALL: Fat-containing umbilical and supraumbilical and epigastric hernias. LYMPH NODES: No gross mesenteric or retroperitoneal lymphadenopathy. VASCULAR: Mixed plaques in the distal abdominal aorta wall and iliac arteries without aneurysm or dissection. Prominent pelvic vessels seem to the left adnexa. There is a focal narrowing of the left main renal vein secondary to superior mesenteric artery/abdominal aorta. PELVIC VISCERA: Uterus in in different/retroflexion with heterogeneous enhancing pattern and focal decreased density intramural lesion posterior body of the uterus. There is prominent vessels in the periphery of the uterus and towards the left adnexa. OSSEOUS STRUCTURES: Grade 1 anterolisthesis secondary to degenerative changes at L5-S1 resulting in bilateral neuroforamina stenosis. There is vacuum phenomenon at L5-S1. Bone marrow inhomogeneity. Irregularities in the acetabulum likely related to patient's motion artifact. CT/CT abdomen pelvis w IV con IMPRESSION: Concerning internal hernia, right hemiabdomen with the incomplete/intermittent bowel obstruction. Inflammatory bowel disease such as Crohn's cannot be excluded. Loculated the umbilical and supraumbilical and epigastric mostly fat-containing hernias. Concerning pelvic congestion, left adnexa. Probable uterine fibroid. Inflammatory versus infectious process in the urinary bladder cannot be excluded. Hiatal hernia. Fleischner guidelines were followed. Electronically signed by: Sam Tavarez MD 10/14/2024 09:32 AM EDT Dictated By: Sam Anne MD Signed By: <Electronically signed by Sam Bal MDin OV> 10/14/24 0932 DD/ 0758 TD/TT: 10/14/24 0908 Kettle Room Helper: [facility] External Provider IMG CT PROCEDURES Final Result * (ABNORMAL) POCT urinalysis dipstick manually resulted (10/11/2024 1:01 PM EDT) Only the most recent of3 resultswithin the time period is included. Color, UA Yellow Clarity, UA Clear Glucose, UA 3+ 500+++ Bilirubin, UA Negative Ketones, UA Negative Spec Grav, UA 1.025 Blood, UA Positive(A) Negative, None Detected Comment:trace intact pH, UA 6.0 Protein, UA Negative Urobilinogen, UA 0.2 Leukocytes, UA Negative Negative, Rare, Trace Nitrite, UA Positive(A) Negative, None Detected Appearance, UA clear QC Media Lot # [id number] Lot# Expiration Date [id number] Urine 10/11/2024 1:01 PM EDT Lexi Mancera CNM POINT OF CARE TEST ENTER/ EDIT ORDERABLES Final Result * (ABNORMAL) Bacterial Vaginosis Panel (09/20/2024 11:11 AM EDT) TRICHOMONAS VAGINALIS DETECTION BY PCR NOT DETECTED Not Detect [facility] BACTERIAL VAGINOSIS DETECTION BY PCR NEGATIVE Negative [facility] Comment:The BV organism targ ets of the Xpert Xpress MVP test can becommensal in women; Xpert Xpress MVP positive results forbacterial vaginosis should be considered in conjunction withother clinical and patient information to determine thedisease status. Organisms that are not detected by the XpertXpress MVP test have also been reported to be associatedwith BV and aerobic vaginitis.The Xpert Xpress MVP test performance has not been evaluatedin patients under the age of 14. STEPHANIE GROUP DETECTION BY PCR DETECTED(A) Not Detect [facility] Stephanie glab krusei PCR NOT DETECTED Not Detect [facility] Swab Vaginal structure / Unknown 09/20/2024 11:11 AM EDT 09/20/2024 6:04 PM EDT Lexi Rojasabbygueroscooter [facility] MICROBIOLOGY - GENERA L ORDERABLES Final Result [facility] [address] [place] [phone] * Chlamydia/N. Gonorrhoeae RNA, TMA, Vagina (09/20/2024 11:11 AM EDT) CT PCR NOT DETECTED Not Detect. [facility] Comment:A not detected test result does not exclude the possibilityof infection because test results can be affected byimproper specimen collection, concurrent antibiotic therapy,or the number of organisms in the specimen which may bebelow the sensitivity of the test. As with many diagnostictests, results from the Xpert CT/NG assay should beinterpreted in conjunction with other laboratory andclinical data available to the clinician.Xpert CT/NG performance has not been evaluated in patientsless than 14 years of age. The assay should not be used forthe evaluationof suspected sexual abuse or for other medico-legalindications. Additional testing is recommended in anycircumstance when false positive or false negative resultscould lead to adverse medical, social or psychologicalconsequences. NG PCR NOT DETECTED Not Detect. [facility] Comment:A not detected test result does not exclude the possibilityof infection because test results can be affected byimproper specimen collection, concurrent antibiotic therapy,or the number of organisms in the specimen which may bebelow the sensitivity of the test. As with many diagnostictests, results from the Xpert CT/NG assay should beinterpreted in conjunction with other laboratory andclinical data available to the clinician.Xpert CT/NG performance has not been evaluated in patientsless than 14 years of age. The assay should not be used forthe evaluationof suspected sexual abuse or for other medico-legalindications. Additional testing is recommended in anycircumstance when false positive or false negative resultscould lead to adverse medical, social or psychologicalconsequences. Swab Vaginal structure / Unknown 09/20/2024 11:11 AM EDT 09/20/2024 6:04 PM EDT Lexi Mancera [facility] MICROBIOLOGY - GENERA L ORDERABLES Final Result Performing Organization Address [facility]/ZIP Co de Phone Number [facility] [address] [place] [phone] * POCT fern test, vaginal fluid manually resulted (09/20/2024 11:11 AM EDT) Pathologist [facility] LINDSAY Prep Positive Comment:pH 4.5, pos yeast, n eg trich, neg clue, neg whiff, neg wbc Vaginal Fluid Vaginal structure / Unknown 09/20/2024 11:11 AM EDT [facility] POINT OF CARE TEST ENTER/ EDIT ORDERABLES Final Result * (ABNORMAL) Confirmatory Syphilis Profile (09/20/2024 11:05 AM EDT) Pathologist [facility] Rapid Plasma Reagin, Quant Reactive 1:2(A) Nonreactive [facility] Treponema pallidum Antibody, Particle Agglutination Reactive(A) Nonreactive [facility] Comment:These results must b e reported by the ordering clinician orclinical facility to the [place] [facility]as required by state law.Testing performed at: [address] [address] 09/20/2024 11:0 5 AM EDT 09/21/2024 8:11 AM EDT Lexi Mancera [facility] BLOOD ORDERABLES Elaine l Result Performing Organization Address [facility]/ZIP Co de Phone Number [facility] [address] [place] [phone] * (ABNORMAL) Syphilis Screen (09/20/2024 11:05 AM EDT) Syphilis Screen Reactive( A) Nonreactive [facility] Comment:Reactive specimens a re sent to the [facility]for confirmatory tests. Blood Venous blood specimen / Unknown 09/20/2024 11:05 AM EDT 09/20/2024 1:43 PM EDT Lexi Mancera [facility] BLOOD ORDERABLES Elaine tiwari Result [facility] [address] [place] [phone] * T-SPOT??.TB (09/20/2024 11:05 AM EDT) [facility] T Spot TB Negative Negative [facility] Comment:A negative test resu lt does not exclude the possibilityof exposure to or infection with Mycobacteriumtuberculosis (M. tuberculosis). Patients with recentexposure to TB infected individuals exhibiting anegative T-SPOT.TB result should be considered forretesting within 6 weeks or if other relevant clinicalsymptoms indicate. Results from T-SPOT.TB testing mustbe used in conjunction with each individual'sepidemiological history, current medical status,and results of other diagnostic evaluations.The T-SPOT.TB test is qualitative and results arereported as positive, borderline, or negative, giventhat the test controls perform as expected. In linewith the Centers for Disease Control and Prevention's2010 recommendation to report quantitative measurementsalongside the qualitative result, the laboratoryprovides spot counts for informational purposes only.The T-SPOT.TB test should not be interpreted as aquantitative test. TS PANEL A 0 [facility] TS PANEL B 0 [facility] Negative Control Passed [facility] Positive Control Passed [facility] Comment:For additional infor juju, please refer tohttp://education.[employer]/faq/CTN441(This link is being provided for informational/educational purposes only.)THIS TEST WAS PERFORMED AT:[employer]/CHRIS [id number] [place] [address]JFIYIJXCAMILA TORRES MD,PHD 09/20/2024 11:0 5 AM EDT 09/20/2024 1:43 PM EDT us Ana Luisa Bourne AUTOMOTIVE MANUFACTURER LAB BLOOD ORDERABLES Final Res ult Performing Organization Address [facility]/ZIP Co de Phone Number [facility] [address] [place] [phone] * Creatinine, Serum (09/20/2024 11:05 AM EDT) Creatinine, Serum 0.70 0.5 - 1.4 mg/dL [facility] Estimated Glomerular Filt Rate >60 [facility] Comment:Chronic Kidney Disea se: Estimated GFR < 60 mL/min/1.96x9Iefbee Kidney Disease: Estimated GFR < 15 mL/min/1.73m2 09/20/2024 11:0 5 AM EDT 09/20/2024 1:43 PM EDT us Generic External Data Provider LAB BLOOD ORDERAB LES Final Result Performing Organization Address [facility] de Phone Number [facility] [address] [place] [address] [phone] * Hepatitis C Antibody with Reflex to HCV, RNA, Quantitative, Real-Time PCR (09/20/2024 11:05 AM EDT) Hepatitis C Antibody Nonreactive Nonreactive [facility] Comment:Antibodies to HCV no t detected; does not exclude early acuteHCV infection. Blood Venous blood specimen / Unknown 09/20/2024 11:05 AM EDT 09/20/2024 1:43 PM EDT us Lexi Mancera CNM LAB BLOOD ORDERABLES Elaine l Result Performing Organization Address [facility]/ZIP Co de Phone Number [facility] [address] [place] [phone] * Hepatitis B surface antigen, EIA (09/20/2024 11:05 AM EDT) Hepatitis B Surface Ag Negative Negative [facility] Blood Venous blood specimen / Unknown 09/20/2024 11:05 AM EDT 09/20/2024 1:[address] [facility] BLOOD ORDERABLES Elaine l Result Performing Organization Address City/[facility]/ZIP Co de Phone Number [facility] [address] [place] [address] [phone] * Hepatitis B Core Antibody, Total (09/20/2024 11:05 AM EDT) Pathologist [facility] Hepatitis B Core Antibody Nonreactive Nonreactive [facility] Blood Venous blood specimen / Unknown 09/20/2024 11:05 AM EDT 09/20/2024 1:43 PM EDT [facility] LAB BLOOD ORDERABLES Elaine l Result Performing Organization Address [facility] de Phone Number [facility] [address] [place] [phone] * HIV-1/2 Antigen and Antibodies, Fourth Generation, with Reflexes (09/20/2024 11:05 AM EDT) Pathologist [facility] HIV AB/AG Nonreactive Nonreactive [facility] Comment:HIV-1 p24 Ag and/or HIV-1/HIV-2 Ab not detected.A test result that is nonreactive does not exclude thepossibility of exposure to or infection with HIV-1 and/orHIV-2. Nonreactive results in this assay for individualswith prior exposure to HIV-1 and/or HIV-2 may be due toantigen and antibody levels that are below the limit ofdetection of this assay.The [employer] HIV Ag/Ab Combo assay result andsupplemental assay results should be interpreted inconjunction with the patient's clinical presentation,history and other laboratory results. If the results areinconsistent with clinical evidence, additional testing issuggested to confirm the result. Blood Venous blood specimen / Unknown 09/20/2024 11:05 AM EDT 09/20/2024 1:43 PM EDT Lexi Calderon [facility] LAB BLOOD ORDERABLES Elaine l Result Performing Organization Address [facility] Co de Phone Number [facility] [address] [place] [address] [phone] * Hepatitis B Surface Antibody, Qualitative (09/20/2024 11:05 AM EDT) ~Hepatitis B Surface Antibody NONREACTIVE Nonreactive [facility] Comment:Nonreactive: < 8.00 mIU/mL Blood Venous blood specimen / Unknown 09/20/2024 11:05 AM EDT 09/20/2024 1:43 PM EDT [facility] BLOOD ORDERABLES Elaine l Result Performing Organization Address [facility] de Phone Number [facility] [address] [place] [address] [phone] * BUN (Blood Urea Nitrogen) (09/20/2024 11:05 AM EDT) Urea Nitrogen (BUN) 12 9 - 16 mg/dL [facility] 09/20/2024 11:0 5 AM EDT 09/20/2024 1:43 PM EDT Generic External Data Provider LAB BLOOD ORDERAB LES Final Result Performing Organization Address [facility] de Phone Number [facility] [address] [place] [address] [phone] * Hepatic Function Panel (09/20/2024 11:05 AM EDT) Bilirubin, Total 0.4 0.0 - 1.0 mg/dL [facility] Bilirubin, Direct 0.2 0.0 - 0.5 mg/dL [facility] Aspartate Amino Transferase 18 5 - 31 U/L [facility] Alanine Aminotransferase 19 0 - 31 U/L [facility] Total Protein 7.6 6.5 - 8.0 g/dL [facility] Albumin Level 4.1 3.5 - 5.0 g/dL [facility] Alkaline Phosphatase 93 39 - 117 U/L [facility] Blood Venous blood specimen / Unknown 09/20/2024 11:05 AM EDT 09/20/2024 1:43 PM EDT [facility] LAB BLOOD ORDERABLES Elaine l Result Performing Organization Address [facility] de Phone Number [facility] [address] [place] [address] [phone] * Culture, Urine, Routine (09/20/2024 10:42 AM EDT) Urine Urine specimen obtained by clean catch procedure / Unknown 09/20/2024 10:42 AM EDT 09/20/2024 5:41 PM EDT Comment:UACC Narrative [facility] - 09/22/2024 1:44 PM EDT Urine Culture Report Result Urine Culture < 10,000 cfu/ml Urine Culture Mixed bacterial aziza characteristic of Urine Culture urogenital contamination. Strep agalactiae (Grp B) Quant < 10,000 cfu/mL Susc N/A Susceptibility not routinely performed on this isolate. Specimen Source: Urine clean catch [facility] CenterLeximaria luisa [facility] MICROBIOLOGY - GENERA L ORDERABLES Final Result Performing Organization Address [facility] Co de Phone Number [facility] [address] [place] [address] [phone] * BI Mammogram Screening Tomosynthesis Bilateral (07/21/2024 12:45 PM EDT) Anatomical Region Laterality Modality Breast Bilateral Mammography 07/21/2024 12:4 5 PM EDT Narrative 07/30/2024 2:26 PM EDT [facility] [address] [place] [address] Mammography Report Signed Patient: Hodan Lopez MR#: [id number] : 1970 Acct:[id number] Age/Sex: 54 / F ADM Date: 07/21/24 Loc: HO.MAMMO Attending Dr: Codie Quintero MD Ordering Physician: Codie Quintero MD Results: 2Benig n Findings Date of Service: 07/21/24 Follow Up: 1 Year From Orig inal Mammogram Procedure(s): MM tomosynthesis screening BI Accession Number(s): [id number] cc: Codie Quintero MD; Ana Luisa Bourne AUTOMOTIVE MANUFACTURER EXAMINATION: MM SCREENING DIGITAL BREAST TOMOSYNTHESIS, BILATERAL CLINICAL INFORMATION: Screening. Asymptomatic. History of left breast cancer status post lumpectomy. Benign stereotactic core needle biopsy upper outer left breast. COMPARISON: Mammography: Comparison is made with available priors TECHNIQUE: Digital breast mammography with tomosynthesis is performed in both the craniocaudal and mediolateral oblique views along with computer-aided detection (CAD). FINDINGS: There are scattered areas of fibroglandular density (ACR BI-RADS breast composition Category b). Left lumpectomy changes are stable. Left marker clip. There are no significant masses, abnormal calcifications, or other abnormalities. MM/MM tomosynthesis screening BI IMPRESSION: No mammographic evidence of malignancy. ASSESSMENT: BI-RADS BI-RADS 2 - Benign Findings RECOMMENDATION: Routine annual mammography screening. 1 year F/U This examination should not preclude the clinical evaluation of a suspicious palpable abnormality. This patient's information was entered into a reminder system with a target due date for their next mammogram. Electronically signed by: Ainsley Yee DO 07/30/2024 02:24 PM EDT Dictated By: Ainsley Yee DO Signed By: <Electronically signed by Ainsley Yee DO in OV> 07/30/24 1424 DD/ 1245 TD/TT: 07/21/24 1254 Kettle Room Helper: Procedure Note Donotuseinterpreter, Image - 07/30/2024 [facility] [address] [place], [place] [address] Mammography Report Signed Patient: Lianna Lopez#: [id number] : 1970Acct:[id number] Age/Sex: 54 / FADM Date: 07/21/24 Loc: HO.MAMMO Attending Dr: Codie Quintero MD Ordering Physician: Codie Quintero MDResults: 2Benig n Findings Date of Service: 07/21/24Follow Up: 1 Year From Orig inal Mammogram Procedure(s): MM tomosynthesis screening BI Accession Number(s): [id number] cc: Codie Quintero MD; Ana Luisa Bourne AUTOMOTIVE MANUFACTURER EXAMINATION: MM SCREENING DIGITAL BREAST TOMOSYNTHESIS, BILATERAL CLINICAL INFORMATION: Screening. Asymptomatic. History of left breast cancer status post lumpectomy. Benign stereotactic core needle biopsy upper outer left breast. COMPARISON: Mammography: Comparison is made with available priors TECHNIQUE: Digital breast mammography with tomosynthesis is performed in both the craniocaudal and mediolateral oblique views along with computer-aided detection (CAD). FINDINGS: There are scattered areas of fibroglandular density (ACR BI-RADS breast composition Category b). Left lumpectomy changes are stable. Left marker clip. There are no significant masses, abnormal calcifications, or other abnormalities. MM/MM tomosynthesis screening BI IMPRESSION: No mammographic evidence of malignancy. ASSESSMENT: BI-RADS BI-RADS 2 - Benign Findings RECOMMENDATION: Routine annual mammography screening. 1 year F/U This examination should not preclude the clinical evaluation of a suspicious palpable abnormality. This patient's information was entered into a reminder system with a target due date for their next mammogram. Electronically signed by: Ainsley Yee DO 07/30/2024 02:24 PM EDT Dictated By: Ainsley Yee DO Signed By: <Electronically signed by Ainsley Yee DO in OV> 07/30/24 1424 DD/ 1245 TD/TT: 07/21/24 1254 Kettle Room Helper: [facility] External Provider IMG BI PROCEDURES Final Result * Hm Colonoscopy (01/16/2024 2:15 PM EST) Historical Provider HEALTH MAINTENANCE Final Result * (ABNORMAL) Lipid Panel, Standard (07/30/2023 1:33 PM EDT) Triglycerides 232(H) <150 mg/dL [facility] Comment:Desirable Triglyceri de: less than 150 mg/dLBorderline High Triglyceride 150-199 mg/dLHigh Triglyceride: 200-499 mg/dLVery High Triglyceride: greater than or equal to 5OO mg/dL Cholesterol 201(H) <200 mg/dL [facility] Comment:Desirable Cholestero l: less than 200 mg/dLBorderline High Cholesterol: 200-239 mg/dLHigh Cholesterol: greater than 239 mg/dL LDL Cholesterol Calculated 111(H) <100 mg/dL [facility] Comment:Desirable LDL: less than 100 mg/dLNear Optimal/Above Optimal LDL: 110- 129 mg/dLBorderline High LDL: 130-159 mg/dLHigh LDL: 160-189 mg/dLVery High LDL: greater than or equal to 190 mg/dL HDL Cholesterol 44 >40 mg/dL [facility] Comment:Desirable HDL: great er than 40 mg/dL Note: This HDL assay may give artificially low results in patients with liver disease. Blood Venous blood specimen / Unknown 07/30/2023 1:33 PM EDT 07/30/2023 1:33 PM EDT Ana Luisa Bourne AUTOMOTIVE MANUFACTURER LAB BLOOD ORDERABLES Final Res ult [facility] [address] [place] [address] [phone] * HPV E6/E7 RFLX MARIBELL 16 18/45 (06/05/2021 3:35 PM EDT) HPV mRNA E6/E7 rflx Not Detected Not Detected [facility] Comment: Methodology: Ccie-Mediated Amplification This assay detects E6/E7 viral messenger RNA (mRNA) from 14 high-risk HPV types (16,18,31,33,35,39,45,51,52,56,58,59,66,68). The analytical performance characteristics of this assay have been determined by [employer]. The modifications have not been cleared or approved by the FDA. This assay has been validated pursuant to the CLIA regulations and is used for clinical purposes. For additional information, please refer to http://education.[employer]/faq/LJR120z6 (This link if provided for information/ educational purposes only.) THIS TEST WAS PERFORMED AT: [employer] [address] [place] [address] FLOOR,[place] [address] LEE VILLALPANDO MD 06/05/2021 3:35 PM EDT us Estela Hung HISTORICAL/NON ORDERABLE LABS Fi nal Result [facility] [address] from Last 3 Months or Most Recently Relevant to Health Maintenance Insurance [facility] C3 [place] AD[place] Care Teams Rubber Roller Grinder Relationship Specialty Start Date End Date Ana Luisa Bourne FNP [address] [place] [address] PCP - General Family Medicine 11/01/21 Priscilla Cody [address] [place] [address] Gastroenterology 11/21/24 Codie Quintero MD [address] [place] [address] Hematology and Oncology 11/21/24 Teodoro Palomino DPM [address] [place] [phone] Podiatry 11/21/24 Manoj Locke MD [address] [place], [place] [address], [place] [address] General Surgery 11/21/24 [facility] Mental [facility] 11/21/24 YOAN Cool (A) Home Monitoring Clinician 11/21/24
--- OUTSIDE RECORDS SUMMARY | 2024-12-02 09:12 | XMS_ITS | Encounter Summary ---
Author Organization [employer] Address [address] [place] [address] Care Team Providers Care Core Winder Machine Operator Name Role Phone Ana Luisa Bourne Primary Care Provider [phone] Geeta Zeng PharmD Unavailable Priscilla Cody Unavailable Codie Quintero MD Unavailable [phone] Teodoro Palomino DPM Unavailable Manoj Locke MD Unavailable [phone] Reason for Visit * Reason Comments Med Refill Encounter Details Date Type Department Care Team (Late st Contact Info) Description 08/29/2024 Refill [facility] [address] [place] [address] Ana Luisa Bourne FNP [address] [place], [place] [phone] Other hyperlipidemia Social History Tobacco Use Types [...] Score 21 08/05/2024 Patient Health Questionnaire-9 Score 21 08/05/2024 Last PHQ-9: Questionnaire Data Not on [...] documented as of this encounter Care Teams Core Winder Machine Operator Relationship Specialty Start Date End Date Ana Luisa Bourne FNP [address] [place] [phone] PCP - General Family Medicine 11/01/21 Geeta Zeng, Santosh [address] [place] [address] Pharmacist Internal Medicine 07/07/23 11/20/24 Priscilla Cody [address] [place] [phone] Gastroenterology 11/21/24 Codie Quintero MD [address] [place] [phone] Hematology and Oncology 11/21/24 Teodoro Palomino DPM [address] [place] [phone] Podiatry 11/21/24 Manoj Locke MD [address] [place] [phone] General Surgery 11/21/24 [facility] 02/17/24 [facility] Table Games Manager Mental Health 11/21/24 YOAN Cool (VNA) Home Monitoring Clinician 11/21/24 documented as of this encounter
--- OUTSIDE RECORDS SUMMARY | 2024-12-02 09:12 | XMS_ITS | Encounter Summary ---
Author Organization [facility] Address [address] [facility] [address] [place] [phone] Phone Care Team Providers Care Stove Tender Name Role Phone Sonali Harper MD Primary Care Provider [phone] Encounter Details Date Type Department Care Team (Late st Contact Info) Description 07/11/2020 Ancillary Orders [facility],Outside Imaging [address] [place] [address] System, Provider Not In, [place] [address] Social History Tobacco Use Types Packs/Day Years [...] on filedocumented in this encounter Care Teams Stove Tender Relationship Specialty Start Date End Date Sonali Harper MD [address] [facility] [address] [place] [address] [email or web address] PCP - General Family Medicine 07/07/20 documented as of this encounter Additional Source Comments The information contained in this document represents components of the legal health record. It is not the complete legal health record.[facility]
--- OUTSIDE RECORDS SUMMARY | 2024-12-02 09:12 | XMS_ITS | Encounter Summary ---
Author Organization [employer] Address [address] [place] [address] Care Team Providers Care Cotton Stripper Name Role Phone RupinderHarish oronale FIELD SALES TRAINER Primary Care Provider [phone] Geeta Zeng PharmD Unavailable [phone] Priscilla Cody Unavailable Codie Quintero MD Unavailable [phone] Teodoro Palomino DPM Unavailable [phone] Manoj Locke MD Unavailable [phone] Encounter Details Date Type Department Care Team (Late st Contact Info) Description 02/03/2024 Orders Only [facility] [address] [place] [address] Provider, MD William Social History Tobacco Use [...] Procedure Name Priority Date/Time Associated Diagnosis Comments SARS COV2/INFLUENZA A/B AND RSV RNA QL NAAT Routine 10/14/2024 8:34 AM EDT CONFIRMATORY SYPHILIS PROFILE Routine 09/20/2024 11:05 AM EDT CREATININE, SERUM Routine 09/20/2024 11: 05 AM EDT UREA NITROGEN (BUN) Routine 09/20/2024 1 1:05 AM EDT CBC WITH AUTO DIFFERENTIAL Routine 06/02/2024 2:31 PM EDT COMPREHENSIVE METABOLIC PANEL Routine 06/02/2024 2:31 PM EDT HM COLONOSCOPY Routine 01/16/2024 2:15 PM EST documented in this encounter Results * SARS-CoV-2 RNA, Influenza A/B, and RSV RNA, Ql NAAT (10/14/2024 8:34 AM EDT) Pathologist [facility] Influenza A PCR NEGATIVE Negative [facility] Influenza B PCR NEGATIVE Negative [facility] Resp Syncy Virus RNA Qual PCR NEGATIVE Negative [facility] SARS COV2 PCR NEGATIVE Negative [facility] Comment:All test results mus t [...] use by authorized laboratories.Testing performed on the [employer] GeneXpert utilizingreal-time RT-PCR.All SARS CoV2 and positive influenza A/B results arereported to [facility]. 10/14/2024 8:34 AM EDT 10/14/2024 8:41 AM EDT us Generic External Data Provider LAB MICROBIOLOGY - GENERAL ORDERABLES Final Result [facility] [address] [place] [address] [phone] * (ABNORMAL) Confirmatory Syphilis Profile (09/20/2024 11:05 AM EDT) Pathologist [facility] Rapid Plasma Reagin, Quant Reactive 1:2(A) Nonreactive [facility] Treponema pallidum Antibody, Particle Agglutination Reactive(A) Nonreactive [facility] Comment:These results must b e reported by the ordering clinician orclinical facility to the [facility] required by state law.Testing performed at: [address] [id number] 09/20/2024 11:0 5 AM EDT 09/21/2024 8:11 AM EDT us Lexi [facility] LAB BLOOD ORDERABLES Elaine l Result Performing Organization Address City/[facility]/ZIP Co de Phone Number [facility] [address] [place] [phone] * Creatinine, Serum (09/20/2024 11:05 AM EDT) Creatinine, Serum 0.70 0.5 - 1.4 mg/dL [facility] Estimated Glomerular Filt Rate >60 [facility] Comment:Chronic Kidney Disea se: Estimated GFR < 60 mL/min/1.96x5Qjrmkt Kidney Disease: Estimated GFR < 15 mL/min/1.73m2 09/20/2024 11:0 5 AM EDT 09/20/2024 1:43 PM EDT us Generic External Data Provider LAB BLOOD ORDERAB LES Final Result Performing Organization Address [facility] Co de Phone Number [facility] [address] [place] [phone] * BUN (Blood Urea Nitrogen) (09/20/2024 11:05 AM EDT) Urea Nitrogen (BUN) 12 9 - 16 mg/dL [facility] 09/20/2024 11:0 5 AM EDT 09/20/2024 1:43 PM EDT us Generic External Data Provider LAB BLOOD ORDERAB LES Final Result Performing Organization Address [facility]/ZIP Co de Phone Number [facility] [address] [place] [phone] * (ABNORMAL) Comprehensive Metabolic Panel (06/02/2024 2:31 PM EDT) Pathologist [facility] Sodium 144 135 - 145 mmol/L [facility] Potassium 3.6 3.3 - 5.1 mmol/L [facility] Chloride 108 96 - 108 mmol/L [facility] Carbon Dioxide 29 22 - 29 mmol/L [facility] Anion Gap 11(L) 12 - 20 [facility] Urea Nitrogen (BUN) 4(L) 9 - 16 mg/dL [facility] Creatinine, Serum 0.66 0.5 - 1.4 mg/dL [facility] Estimated Glomerular Filt Rate >60 [facility] Comment:Chronic Kidney Disea se: Estimated GFR < 60 mL/min/1.70x0Aujkll Kidney Disease: Estimated GFR < 15 mL/min/1.73m2 Glucose 188(H) 60 - 115 mg/dL [facility] Calcium 9.4 8.4 - 10.2 mg/dL [facility] Bilirubin, Total 0.3 0.0 - 1.0 mg/dL [facility] Aspartate Amino Transferase 20 5 - 31 U/L [facility] Alanine Aminotransferase 18 0 - 31 U/L [facility] Total Protein 7.2 6.5 - 8.0 g/dL [facility] Albumin Level 3.8 3.5 - 5.0 g/dL [facility] Alkaline Phosphatase 84 39 - 117 U/L [facility] 06/02/2024 2:31 PM EDT 06/02/2024 2:31 PM EDT us Generic External Data Provider LAB BLOOD ORDERAB LES Final Result [facility] [address] [place] [phone] * CBC auto differential (06/02/2024 2:31 PM EDT) Pathologist [facility] White Blood Count 9.0 4.8 - 10.8 X10*3/uL [facility] Red Blood Count 5.24 4.20 - 5.50 X10*6/uL [facility] Hemoglobin 14.3 12.0 - 16.0 g/dl [facility] Hematocrit 46.1 37.0 - 47.0 % [facility] Mean Corpuscular Volume 88.0 80.0 - 98.0 fL [facility] Mean Corpuscular Hemoglobin 27.3 27.0 - 33.0 pg [facility] Mean Corpuscular HGB Conc 31.0 31.0 - 35.0 g/dl [facility] Red Cell Distribution Width 13.7 11.0 - 16.0 % [facility] Platelet Count 286 160 - 400 X10*3/uL [facility] Mean Platelet Volume 10.2 9.4 - 12.3 fL [facility] Neutrophils Percent Auto 67.0 45 - 73 % [facility] Imm Gran Pct Auto 0.3 0.0 - 0.4 % [facility] Lymphocytes Percent Auto 24.3 20 - 40 % [facility] Monocytes Percent Auto 6.5 2 - 11 % [facility] Eosinophils Percent Auto 1.0 0 - 4 % [facility] Basophils Percent Auto 0.9 0 - 2 % [facility] NRBC Pct Auto 0.0 0.0 - 0.2 /100WBC [facility] Neutrophils Absolute Auto 6.0 2.0 - 8.3 x10*3/uL [facility] Imm Gran Abs Auto 0.03 0.00 - 0.03 X10*3/uL [facility] Lymphocytes Absolute Auto 2.2 1.2 - 4.9 X10*3/uL [facility] Monocytes Absolute Auto 0.6 0.1 - 1.2 X10*3/uL [facility] Eosinophils Absolute Auto 0.1 0.0 - 0.4 X10*3/uL [facility] Basophils Absolute Auto 0.1 0.0 - 0.2 X10*3/uL [facility] NRBC Abs Auto 0.000 0.0 - 0.012 X10*3/uL [facility] 06/02/2024 2:31 PM EDT 06/02/2024 2:31 PM EDT us Generic External Data Provider LAB BLOOD ORDERAB LES Final Result [facility] [address] [place] [address] [phone] * Hm Colonoscopy (01/16/2024 2:15 PM EST) us Historical Provider HEALTH MAINTENANCE Final Result documented in this encounter Visit Diagnoses Not on filedocumented in this encounter Additional Health Concerns Assessment Noted Time PHQ-9 Depression Total Score: 9 12/18/19 24 1:33 PM EDT documented as of this encounter Care Teams Cotton Stripper Relationship Specialty Start Date End Date Ana Luisa Bourne FNP [address] [place] [address] PCP - General Family Medicine 11/01/21 Geeta Zeng, DaphneD [address] [place] [address] Pharmacist Internal Medicine 07/07/23 11/20/24 Priscilla Cody [address] [place] [address] Gastroenterology 11/21/24 Codie Quintero MD [address] [place] [address] Hematology and Oncology 11/21/24 Teodoro Palomino DPM [address] [place] [address] Podiatry 11/21/24 Manoj Locke MD [address] [address] General Surgery 11/21/24 [facility] 02[facility]17/24 [facility] Radiation Protection Specialist Mental Health 11/21/24 YOAN Cool (A) Home Monitoring Clinician 11/21/24 documented as of this encounter
--- OUTSIDE RECORDS SUMMARY | 2024-12-02 09:12 | XMS_ITS | Encounter Summary ---
Author Organization [facility] Address [address] [facility] [address] [place] [address] Phone Care Team Providers Care Segmental Paver Installer Name Role Phone Sonali Harper MD Primary Care Provider [phone] Encounter Details Date Type Department Care Team (Late st Contact Info) Description 07/11/2020 Ancillary Orders ,Outside Imaging [address] [place] [address] System, Provider Not In, [place] [address] Social History Tobacco Use Types Packs/Day Years [...] on filedocumented in this encounter Care Teams Segmental Paver Installer Relationship Specialty Start Date End Date Sonali Harper MD 230 [facility] 1 [place] [address] [email or web address] PCP - General Family Medicine 07/07/20 documented as of this encounter Additional Source Comments The information contained in this document represents components of the legal health record. It is not the complete legal health record.[facility]
--- OUTSIDE RECORDS SUMMARY | 2024-12-02 09:12 | XMS_ITS | Encounter Summary ---
Author Organization [facility] Address [address] [facility] [address] [place] [phone] Phone Care Team Providers Care Epic Analyst Name Role Phone Sonali Harper MD Primary Care Provider [phone] Encounter Details Date Type Department Care Team (Late st Contact Info) Description 07/11/2020 Ancillary Orders [facility],Outside Imaging [address] [place] [address] System, Provider [place] In, [place] [address] Social History Tobacco Use Types Packs/Day Years [...] on filedocumented in this encounter Care Teams Epic Analyst Relationship Specialty Start Date End Date Sonali Harper MD 230 [facility] 1 [place] [address] [email or web address] PCP - General Family Medicine 07/07/20 documented as of this encounter Additional Source Comments The information contained in this document represents components of the legal health record. It is not the complete legal health record.[facility]
--- OUTSIDE RECORDS SUMMARY | 2024-12-02 09:12 | XMS_ITS | Clinical Summary ---
Author Organization [facility] Address [address] [facility] [address] [place] [address] Phone Care Team Providers Care Director Decision Support Name Role Phone Bernadette Harper MD Primary Care Provider [phone] Allergies No known active allergies Medications atorvastatin (LIPITOR) 80 MG tablet Take 80 mg by mouth daily. Active docusate sodium (COLACE) 100 MG capsule Take 100 mg by mouth 2 (two) times a day. Active ferrous sulfate 325 mg (65 mg wiyot iron) tablet Take 325 mg by mouth [...] ACO C3 ACO C3 ACO Care Teams Director Decision Support Relationship Specialty Start Date End Date Bernadette Harper MD [address] [address] [email or web address] PCP - General Family Medicine 07/07/20 Additional Source Comments The information contained in this document represents components of the legal health record. It is not the complete legal health record.[facility]
--- OUTSIDE RECORDS SUMMARY | 2024-12-02 09:12 | XMS_ITS | Encounter Summary ---
Author Organization [facility] Address [address] [facility] [address] [place] [address] Phone Care Team Providers Care Youth Development Specialist Name Role Phone Sonali Harper MD Primary Care Provider [phone] Encounter Details Date Type Department Care Team (Late st Contact Info) Description 07/11/2020 Ancillary Orders [facility],Outside Imaging [address] [place] [address] System, Provider Not In, [place] [address] Social History Tobacco Use Types Packs/Day Years [...] on filedocumented in this encounter Care Teams Youth Development Specialist Relationship Specialty Start Date End Date Sonali Harper MD [address] [place] [address] [email or web address] PCP - General Family Medicine 07/07/20 documented as of this encounter Additional Source Comments The information contained in this document represents components of the legal health record. It is not the complete legal health record.[facility]
--- OUTSIDE RECORDS SUMMARY | 2024-12-02 09:12 | XMS_ITS | Encounter Summary ---
Author Organization [employer] Address [address] [facility] 7t [place] [address] Care Team Providers Care Electrical And Radio Aircraft Mechanic Name Role Phone Ana Luisa Bourne Primary Care Provider Geeta Zeng PharmD Unavailable [phone] Priscilla Cody Unavailable Codie Quintero MD Unavailable [phone] Teodoro Palomino DPM Unavailable [phone] Manoj Locke MD Unavailable [phone] Reason for Visit * Reason Onset Date Comments Med Refill 01/09/2023 Encounter Details Date Type Department Care Team (Late st Contact Info) Description 01/09/2023 Refill [facility] [address] [place] [address] Ana Luisa Bourne FNP [address] [place], [place] [phone] Type 2 diabetes mellitus without complication, with long-term current use of insulin ([facility]) Social History Tobacco Use Types Packs/Day Years [...] 12:30 PM EDT Tc from Jason from [facility] requesting medication refill for OXcarbazepine (Trileptal) 600 MG tablet, tamoxifen (Nolvadex) 20 MG chemo tablet, dapagliflozin (Farxiga) 5 MG. Jason alsostated that he was given 10mg of the dapagliflozin 5mg marketing copywriter did not see that on med list please verify. Please call [phone] documented in this encounter Plan of Treatment Not on file documented as of this encounter Visit Diagnoses Diagnosis Type 2 diabetes mellitus without complication, with long-term current use of insulin ([facility]) documented in this encounter Additional Health Concerns Assessment Noted Time PHQ-9 Depression Total Score: 0 03/22/19 23 2:05 PM EST documented as of this encounter Care Teams Electrical And Radio Aircraft Mechanic Relationship Specialty Start Date End Date Ana Luisa Bourne FNP [address] [place] [address] PCP - General Family Medicine 11/01/21 Geeta Zeng PharmD [address] [place] [address] Pharmacist Internal Medicine 07/07/23 11/20/24 Priscilla Cody [address] [place] [address] Gastroenterology 11/21/24 Codie Quintero MD [address] [place] [address] Hematology and Oncology 11/21/24 Teodoro Palomino DPM [address] [place] [address] Podiatry 11/21/24 Manoj Locke MD [address] [address] General Surgery 11/21/24 [facility] Home Health 02/17/24 Isara Patient Service Specialist Mental Health 11/21/24 YOAN Cool (VNA) Home Monitoring Clinician 11/21/24 documented as of this encounter
--- OUTSIDE RECORDS SUMMARY | 2024-12-02 09:12 | XMS_ITS | Encounter Summary ---
Author Organization [facility] Address [address] [facility] [address] [place] [address] Phone Care Team Providers Care Pecan Mallow Dipper Name Role Phone Sonali Harper MD Primary Care Provider [phone] Encounter Details Date Type Department Care Team (Late st Contact Info) Description 07/11/2020 Ancillary Orders [facility],Outside Imaging [address] [place] [address] System, Provider [place] In, [place] [address] Social History Tobacco Use Types Packs/Day Years [...] on filedocumented in this encounter Care Teams Pecan Mallow Dipper Relationship Specialty Start Date End Date Sonali Harper MD [address] [place] [address] [email or web address] PCP - General Family Medicine 07/07/20 documented as of this encounter Additional Source Comments The information contained in this document represents components of the legal health record. It is not the complete legal health record.[facility]
--- OUTSIDE RECORDS SUMMARY | 2024-12-02 09:12 | XMS_ITS | Encounter Summary ---
Author Organization [employer] Address [address] [facility] 7t [place] [address] Care Team Providers Care Government Operations Consultant Name Role Phone Ana Luisa Bourne Primary Care Provider [phone] Geeta Zneg PharmD Unavailable Priscilla Cody Unavailable Codie Quintero MD Unavailable [phone] Teodoro Palomino DPM Unavailable [phone] Manoj Locke MD Unavailable [phone] Reason for Visit * Reason Onset Date Comments Results 03/07/2023 Encounter Details Date Type Department Care Team ([facility] st Contact Info) Description 03/07/2023 Telephone [facility] MED & PEDS [address] [place], [place] [phone] Ana Luisa Bourne FNP [address] [place], [place] [phone] Results Social History Tobacco Use Types Packs/Day [...] when done: 02/05 Please contact pt at [phone] TC placed to patient regarding above message at all numbers. Preferred number above had full VM boxso no message could be left. Message left at main number to try us back. Interpretation of results below from Angélica Bourne. Routing back to [facility] nurses to try again. Please call Ms. Lazo to review CT Results: -Reassuring results - [...] concerns. Thank you! * Telephone Encounter - Janellemehul Dior - 03/07/2023 1:39 PM EST TC from pt requesting call back regarding Results. Type of results: CT head Date when done: 02/05 Please contact pt at [phone] documented in this encounter Plan of Treatment Not on file documented as of this encounter Visit Diagnoses Not on filedocumented in this encounter Additional Health Concerns Assessment Noted Time PHQ-9 Depression Total Score: 0 03/22/19 23 2:05 PM EST documented as of this encounter Care Teams Government Operations Consultant Relationship Specialty Start Date End Date Ana Luisa Bourne FNP [address] [place] [address] PCP - General Family Medicine 11/01/21 Geeta Zeng, DaphneD [address] [place] [address] Pharmacist Internal Medicine 07/07/23 11/20/24 Priscilla Cody [address] [place] [address] Gastroenterology 11/21/24 Codie Quintero MD [address] [place] [address] Hematology and Oncology 11/21/24 Teodoro Palomino DPM [address] [place] [address] Podiatry 11/21/24 Manoj Locke MD [address] [place] [address] General Surgery 11/21/24 [facility] Home Health 02/17/24 Isara Director Of Counterintelligence Mental Health 11/21/24 YOAN Cool (VNA) Home Monitoring Clinician 11/21/24 documented as of this encounter
--- OUTSIDE RECORDS SUMMARY | 2024-12-02 09:12 | XMS_ITS | Encounter Summary ---
Author Organization [employer] Address [address] [facility] 7t [place] [address] Care Team Providers Care Immigration Case Manager Name Role Phone Ana Luisa Bourne Primary Care Provider Geeta Zeng PharmD Unavailable Priscilla Cody Unavailable Codie Quintero MD Unavailable [phone] Teodoro Palomino DPM Unavailable Manoj Locke MD Unavailable Reason for Visit * Reason Onset Date Comments Nurse Triage 02/27/2023 Encounter Details Date Type Department Care Team (Late st Contact Info) Description 02/27/[address] 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) documented in this encounter Plan of Treatment Not on file documented as of this encounter Visit Diagnoses Not on filedocumented in this encounter Additional Health Concerns Assessment Noted Time PHQ-9 Depression Total Score: 0 03/22/19 23 2:05 PM EST documented as of this encounter Care Teams Immigration Case Manager Relationship Specialty Start Date End Date Ana Luisa Bourne FNP 230 [place] [address] PCP - General Family Medicine 11/01/21 Geeta Zeng PharmD [address] [place] [address] Pharmacist Internal Medicine 07/07/23 11/20/24 Priscilla Cody [address] [place] [address] Gastroenterology 11/21/24 Codie Quintero MD [address] [place] [address] Hematology and Oncology 11/21/24 Teodoro Palomino DPM [address] [place] [address] Podiatry 11/21/24 Manoj Locke MD [address] [place] [address] General Surgery 11/21/24 [facility] 02/17/24 [facility] [place] Mass Communications Instructor Mental Health 11/21/24 YOAN Cool (VNA) Home Monitoring Clinician 11/21/24 documented as of this encounter
--- OUTSIDE RECORDS SUMMARY | 2024-12-02 09:12 | XMS_ITS | Encounter Summary ---
Author Organization [employer] Address [address] [facility] [address] [place] [address] Care Team Providers Care Music Worker Name Role Phone Ana Luisa Bourne Primary Care Provider [phone] Geeta Zeng PharmD Unavailable Priscilla Cody Unavailable Codie Quintero MD Unavailable [phone] Teodoro Palomino DPSolis Unavailable Manoj Locke MD Unavailable [phone] Encounter Details Date Type Department Care Team (Late st Contact Info) Description 09/15/2023 Telephone [facility] [address] [place] [address] Ana Luisa Bourne FNP [address] [place], [place] [phone] Social History Tobacco Use Types Packs/Day Years [...] Component 13.7( 5 10:20 AM EDT) No Sarah-Pinky randhawa, Geeta, PharmD Quit using tobacco (cigarettes, smokeless, etc) Tobacco Use No Eduardos-iPnky randhawa, Geeta, PharmD documented as of this encounter Visit Diagnoses Not on filedocumented in this encounter Additional Health Concerns Assessment Noted Time PHQ-9 Depression Total Score: 6 07/18/19 24 9:05 AM EDT documented as of this encounter Care Teams Music Worker Relationship Specialty Start Date End Date Ana Luisa Bourne FNP [address] [place] [address] PCP - General Family Medicine 11/01/21 Geeta Zeng, PharmD [address] [place] [address] Pharmacist Internal Medicine 07/07/23 11/20/24 Priscilla Cody [address] [place] [address] Gastroenterology 11/21/24 Codie Quintero MD [address] [place] [address] Hematology and Oncology 11/21/24 Teodoro Palomino DPM [address] [place] [address] Podiatry 11/21/24 Manoj Locke MD [address] [place] [address] General Surgery 11/21/24 [facility] Health 02/17/24 [facility] Transportation Department Supervisor Mental Health 11/21/24 YOAN Cool (VNA) Home Monitoring Clinician 11/21/24 documented as of this encounter
--- OUTSIDE RECORDS SUMMARY | 2024-12-02 09:12 | XMS_ITS | Encounter Summary ---
Author Organization [employer] Address 75 [facility] 7t [place] [address] Care Team Providers Care Director Traffic And Planning Name Role Phone Ana Luisa Bourne Primary Care Provider Geeta Zeng PharmD Unavailable Priscilla Cody Unavailable Codie Quintero MD Unavailable [phone] Teodoro Palomino DPM Unavailable [phone] Manoj Locke MD Unavailable Reason for Visit * Reason Comments Med Change Request Encounter Details Date Type Department Care Team (Late st Contact Info) Description 09/18/2022 Refill [facility] MEDICINE 230 [place] [address] Ana Luisa Bourne FNP 505 [place], [place] [id number] Type 2 diabetes mellitus without complication, with long-term current use of insulin ([facility]) Social History Tobacco Use Types [...] complication, with long-term current use of insulin ([facility]) documented in this encounter Additional Health Concerns Assessment Noted Time PHQ-9 Depression Total Score: 0 03/22/19 23 2:05 PM EST documented as of this encounter Care Teams Director Traffic And Planning Relationship Specialty Start Date End Date Ana Luisa Bourne FNP 230 [place] [address] PCP - General Family Medicine 11/01/21 Geeta Zeng, Santosh 230 [place] [address] Pharmacist Internal Medicine 07/07/23 11/20/24 Priscilla Cody [address] [place] [address] Gastroenterology 11/21/24 Codie Quintero MD [address] [place] [address] Hematology and Oncology 11/21/24 Teodoro Palomino DPM [address] [place] [address] Podiatry 11/21/24 Manoj Locke MD [address] [place] [address] General Surgery 11/21/24 [facility] 02/17/24 [facility] Lead Software Architect Mental Health 11/21/24 YOAN Cool ([facility]) Home Monitoring Clinician 11/21/24 documented as of this encounter
--- OUTSIDE RECORDS SUMMARY | 2024-12-02 09:13 | XMS_ITS | Clinical Summary ---
Author Organization [facility] Address 175 [place] [address] Phone Care Team Providers Care Clerical Specialist Name Role Phone Ana Luisa Bourne [...] PM EDT Office Visit Orthopedic Surgery - [address] [address] Teodoro Palomino, DPM Dermatophytosis of nail (Primary Dx); Tinea pedis of both feet; Acquired hammer toe of right foot; Hammer toe of left foot; Type II diabetes mellitus with peripheral circulatory disorder ([facility] V24, [facility] V28); Diabetic mononeuropathy simplex (CMS/HCC V24, CMS/[facility] V28); Corns and callosities; Pain in toe [...] PM EST Office Visit Orthopedic Surgery - [place] [address] [phone] Teodoro Palomino, ROXANN [address] [address] Health Maintenance Due Date Last [...] topic Insurance MEDICAID - [place] Care Teams Clerical Specialist Relationship Specialty Start Date End Date Ana Luisa Bourne RN [address] [address] PCP - General 04/23/23
--- OUTSIDE RECORDS SUMMARY | 2024-12-02 09:13 | XMS_ITS | Encounter Summary ---
Author Organization [facility] Address [address] [facility] [address] [place] [address] Phone Care Team Providers Care Foundation Stage Teacher Name Role Phone Sonali Harper MD Primary Care Provider [phone] Encounter Details Date Type Department Care Team (Late st Contact Info) Description 07/11/2020 Ancillary Orders [facility],Outside Imaging 30 [place] [address] System, Provider Not In, [place] [address] Social History Tobacco Use Types Packs/Day Years [...] on filedocumented in this encounter Care Teams Foundation Stage Teacher Relationship Specialty Start Date End Date Sonali Harper MD [address] [place] [address] [email or web address] PCP - General Family Medicine 07/07/20 documented as of this encounter Additional Source Comments The information contained in this document represents components of the legal health record. It is not the complete legal health record.[facility]
--- OUTSIDE RECORDS SUMMARY | 2024-12-02 09:13 | XMS_ITS | Encounter Summary ---
Author Organization [employer] Address [address] [facility] 7t [place] [address] Care Team Providers Care Return Checker Name Role Phone Ana Luisa Bourne Primary Care Provider [phone] Priscilla Cody Unavailable Codie Quintero MD Unavailable [phone] Teodoro Palomino DPSolis Unavailable [phone] Manoj Locke MD Unavailable Encounter Details Date Type Department Care Team (Late st Contact Info) Description 11/30/2024 Telephone [facility] MEDICINE 230 [place] [address] Ana Luisa Bourne FNP [address] [place], [place] [id number] Social History Tobacco Use Types Packs/Day Years [...] encounter Miscellaneous Notes * Telephone Encounter - Dalton Olivas - 11/30/2024 2:48 PM EDT Pharmacy [facility] attempted outreach call on 11/30/24 for CDTM - Diabetes appointment; however, unable to reach patient. LVM for patient to contact Dalton Olivas at [phone]. documented in this encounter Plan of Treatment [...] Noted Time PHQ-9 Depression Total Score: 17 11/22/ 025 11:17 AM EDT documented as of this encounter Care Teams Return Checker Relationship Specialty Start Date End Date Ana Luisa Bourne FNP 230 [place] [address] PCP - General Family Medicine 11/01/21 Priscilla Cody [address] [place] [address] Gastroenterology 11/21/24 Codie Quintero MD 575 [place] [address] Hematology and Oncology 11/21/24 Teodoro Palomino DPM [address] [address] Podiatry 11/21/24 Manoj Locke MD [address] [place] [address] General Surgery 11/21/24 [facility] Health 02/17/24 [facility] Attaching Machine Operator Mental Health 11/21/24 YOAN Cool (VNA) Home Monitoring Clinician 11/21/24 documented as of this encounter
--- OUTSIDE RECORDS SUMMARY | 2024-12-02 09:13 | XMS_ITS | Encounter Summary ---
Author Organization [employer] Address 75 [facility] 7t [place] [address] Care Team Providers Care Senior Electrical Designer Name Role Phone Ana Luisa Bourne RELAY MECHANIC Primary Care Provider Geeta Zeng PharmD Unavailable Priscilla Cody Unavailable Codie Quintero MD Unavailable [phone] Teodoro Palomino DPM Unavailable Manoj Locke MD Unavailable Reason for Visit * Reason Comments Med Refill Encounter Details Date Type Department Care Team (Late st Contact Info) Description 07/07/[address] [facility] MED & PEDS 505 [place], [place] [phone] Cleo Malone MD 505 [place], [place] [phone] Primary hypertension Social History Tobacco Use Types [...] as of this encounter Care Teams Senior Electrical Designer Relationship Specialty Start Date End Date Ana Luisa Bourne FNP [address] [place] [address] PCP - General Family Medicine 11/01/21 Geeta Zeng, Santosh 230 [place] [address] Pharmacist Internal Medicine 07/07/23 11/20/24 Priscilla Cody [address] [place] [address] Gastroenterology 11/21/24 Codie Quintero MD [address] [place] [address] Hematology and Oncology 11/21/24 Teodoro Palomino DPM [address] [place] [address] Podiatry 11/21/24 Manoj Locke MD [address] [place] [address] General Surgery 11/21/24 [facility] Health 02/17/24 [facility] Boat Rigger Mental Health 11/21/24 YOAN Cool (VNA) Home Monitoring Clinician 11/21/24 documented as of this encounter
--- OUTSIDE RECORDS SUMMARY | 2024-12-02 09:13 | XMS_ITS | Encounter Summary ---
Author Organization [employer] Address 75 [facility] 7t [place] [address] Care Team Providers Care Double Needle Operator Name Role Phone Ana Luisa Bourne DIRECTOR OF BANDS Primary Care Provider [phone] Priscilla Cody Unavailable Codie Quintero MD Unavailable [phone] Teodoro Palomino DPSolis Unavailable [phone] Manoj Locke MD Unavailable [phone] Encounter Details Date Type Department Care Team (Latest Contact Info) Description 11/30/2024 Travel Social History Tobacco Use Types Packs/Day [...] documented as of this encounter Care Teams Double Needle Operator Relationship Specialty Start Date End Date Ana Luisa Bourne FNP 230 [place] [address] PCP - General Family Medicine 11/01/21 Priscilla Cody [address] 3rd [place] [address] Gastroenterology 11/21/24 Codie Quintero MD [address] [place] [address] Hematology and Oncology 11/21/24 Teodoro Palomino DPM [address] [place] [address] 250 [place] [address] Podiatry 11/21/24 Manoj Locke MD [address] [place] [address] 3rd [place] [address] General Surgery 11/21/24 [facility] 02/17/24 [facility] Diving Supervisor Mental Health 11/21/24 YOAN Cool ([facility]) Home Monitoring Clinician 11/21/24 documented as of this encounter
--- OUTSIDE RECORDS SUMMARY | 2024-12-02 09:13 | XMS_ITS | Encounter Summary ---
Author Organization [facility] Address 399 [facility] [address] [place] [address] Phone Care Team Providers Care Transportation Services Representative Name Role Phone Sonali Harper MD Primary Care Provider [phone] Encounter Details Date Type Department Care Team (Late st Contact Info) Description 07/11/2020 Ancillary Orders [facility],Outside Imaging 30 [place] [address] System, Provider Not In, [place] [address] Social History Tobacco Use Types Packs/Day Years [...] on filedocumented in this encounter Care Teams Transportation Services Representative Relationship Specialty Start Date End Date Sonali Harper MD 230 [facility] 1 [place] [address] [email or web address] PCP - General Family Medicine 07/07/20 documented as of this encounter Additional Source Comments The information contained in this document represents components of the legal health record. It is not the complete legal health record.[facility]
--- OUTSIDE RECORDS SUMMARY | 2024-12-02 09:13 | XMS_ITS | Encounter Summary ---
Author Organization [facility] Address 399 [facility] [address] [place] [address] Phone Care Team Providers Care Electrical Systems Designer Name Role Phone Sonali Harper MD Primary Care Provider [phone] Encounter Details Date Type Department Care Team (Late st Contact Info) Description 07/11/2020 Ancillary Orders [facility],Outside Imaging 30 [place] [address] System, Provider [place] In, [place] [address] Social History Tobacco Use Types Packs/Day Years [...] on filedocumented in this encounter Care Teams Electrical Systems Designer Relationship Specialty Start Date End Date Sonali Harper MD 230 [facility] 1 [place] [address] [email or web address] PCP - General Family Medicine 07/07/20 documented as of this encounter Additional Source Comments The information contained in this document represents components of the legal health record. It is not the complete legal health record.[facility]
--- OUTSIDE RECORDS SUMMARY | 2024-12-02 09:13 | XMS_ITS | Encounter Summary ---
Author Organization [email or web address] Address 75 [facility] 7t [place] [address] Care Team Providers Care Production Potter Name Role Phone Ana Luisa Bourne GIUSEPPE Primary Care Provider [phone] Priscilla Cody Unavailable Codie Quintero MD Unavailable [phone] Teodoro Palomino DPM Unavailable [phone] Manoj Locke MD Unavailable [phone] Reason for Visit * Reason Comments [facility] Recovery Supports Encounter Details Date Type Department Care Team (Late st Contact Info) Description 11/30/2024 Patient Outreach [facility] MEDICINE 230 [place] [address] Hernan Lazo Recovery Supports Social History Tobacco Use Types Packs/Day Years [...] the past 12 months, has t he [employer] gas, oil or water company threatened to [...] as of this encounter Progress Notes * Hernan Lazo - 11/30/2024 3:57 PM EDT I met with Hodan woods. Setting: in person at [facility] Recovery Wellness Goals worked on: Social Stability Action taken/next steps: Attended alcohol and drug free activity Additional comments: Hernan Lazo documented in this encounter Plan of Treatment [...] documented as of this encounter Care Teams Production Potter Relationship Specialty Start Date End Date Ana Luisa Bourne FNP 230 [place] [address] PCP - General Family Medicine 11/01/21 Priscilla Cody [address] [facility] [address] [place] [address] Gastroenterology 11/21/24 Codie Quintero MD [address] [place] [address] Hematology and Oncology 11/21/24 Teodoro Palomino DPM [address] [place] [address] Podiatry 11/21/24 Manoj Locke MD [address] [place] [address] General Surgery 11/21/24 [facility] 02/17/24 [facility] Billiard Table Assembler Mental Health 11/21/24 YOAN Cool ([facility]NA) Home Monitoring Clinician 11/21/24 documented as of this encounter
--- OUTSIDE RECORDS SUMMARY | 2024-12-02 09:13 | XMS_ITS | Encounter Summary ---
Author Organization [employer] Address 75 [facility] 7t [place] [address] Care Team Providers Care Grease Refining Supervisor Name Role Phone Ana Luisa Bourne CLINICAL EXERCISE SPECIALIST Primary Care Provider [phone] Prisclila Cody Unavailable Codie Quintero MD Unavailable [phone] Teodoro Palomino DPSolis Unavailable [phone] Manoj Locke MD Unavailable [phone] Encounter Details Date Type Department Care Team (Latest Contact Info) Description 12/01/2024 Travel Social History Tobacco Use Types Packs/Day [...] documented as of this encounter Care Teams Grease Refining Supervisor Relationship Specialty Start Date End Date Ana Luisa Bourne FNP 230 [place] [address] PCP - General Family Medicine 11/01/21 Priscilla Cody [address] 3rd [place] [address] Gastroenterology 11/21/24 Codie Quintero MD [address] [place] [address] Hematology and Oncology 11/21/24 Teodoro Palomino DPM [address] [place] [address] 250 [place] [address] Podiatry 11/21/24 Manoj Locke MD [address] [place] [address] 3rd [place] [address] General Surgery 11/21/24 [facility] Health 02/17/24 [facility] Category Development Analyst Mental Health 11/21/24 YOAN Cool (VNA) Home Monitoring Clinician 11/21/24 documented as of this encounter
--- OUTSIDE RECORDS SUMMARY | 2024-12-02 09:13 | XMS_ITS | Encounter Summary ---
Author Organization [facility] Address 399 [facility] [address] [place] [address] Phone Care Team Providers Care Licensed Practical Nurse Instructor Name Role Phone Sonali Harper MD Primary Care Provider [phone] Encounter Details Date Type Department Care Team (Late st Contact Info) Description 07/11/2020 Ancillary Orders [facility],Outside Imaging 30 [place] [address] System, Provider [place] In, [place] [address] Social History Tobacco Use Types Packs/Day Years [...] on filedocumented in this encounter Care Teams Licensed Practical Nurse Instructor Relationship Specialty Start Date End Date Sonali Harper MD 230 [facility] 1 [place] [address] [email or web address] PCP - General Family Medicine 07/07/20 documented as of this encounter Additional Source Comments The information contained in this document represents components of the legal health record. It is not the complete legal health record.[facility]
--- OUTSIDE RECORDS SUMMARY | 2024-12-02 09:13 | XMS_ITS | Encounter Summary ---
Author Organization [facility] Address 399 [facility] [address] [place] [address] Phone Care Team Providers Care Ocean Freight Manager Name Role Phone Sonali Harper MD Primary Care Provider [phone] Encounter Details Date Type Department Care Team (Late st Contact Info) Description 07/11/2020 Ancillary Orders [facility],Outside Imaging 30 [place] [address] System, Provider [place] In, [place] [address] Social History Tobacco Use Types Packs/Day Years [...] on filedocumented in this encounter Care Teams Ocean Freight Manager Relationship Specialty Start Date End Date Sonali Harper MD 230 [facility] 1 [place] [address] [email or web address] PCP - General Family Medicine 07/07/20 documented as of this encounter Additional Source Comments The information contained in this document represents components of the legal health record. It is not the complete legal health record.[facility]
--- OUTSIDE RECORDS SUMMARY | 2024-12-02 09:13 | XMS_ITS | Encounter Summary ---
Author Organization [facility] Address 399 [facility] [address] [place] [address] Phone Care Team Providers Care Block Chopper Hand Name Role Phone Sonali Harper MD Primary Care Provider [phone] Encounter Details Date Type Department Care Team (Late st Contact Info) Description 07/11/2020 Ancillary Orders [facility],Outside Imaging 30 [place] [address] System, Provider [place] In, [place] [address] Social History Tobacco Use Types Packs/Day Years [...] on filedocumented in this encounter Care Teams Block Chopper Hand Relationship Specialty Start Date End Date Sonali Harper MD [address] [place] [address] [email or web address] PCP - General Family Medicine 07/07/20 documented as of this encounter Additional Source Comments The information contained in this document represents components of the legal health record. It is not the complete legal health record.[facility]
--- OUTSIDE RECORDS SUMMARY | 2024-12-02 09:13 | XMS_ITS | Encounter Summary ---
Author Organization [employer] Address [address] [facility] [address] 7t [place] [address] Care Team Providers Care Hair Blender Name Role Phone Ana Luisa Bourne Primary Care Provider Geeta Zeng PharmD Unavailable [phone] Priscilla Cody Unavailable Codie Quintero MD Unavailable [phone] Teodoro Palomino DPM Unavailable Manoj Locke MD Unavailable Reason for Visit * Reason Comments Med Refill Encounter Details Date Type Department Care Team (Late st Contact Info) Description 07/08/2024 Refill [facility] 230 [place] [address] Ana Luisa Bourne FNP 505 [place], [place] [phone] Other hyperlipidemia Social History Tobacco Use Types [...] documented as of this encounter Care Teams Hair Blender Relationship Specialty Start Date End Date Ana Luisa Bourne FNP [address] [place] [address] PCP - General Family Medicine 11/01/21 Geeta Zeng, Santosh 230 [place] [address] Pharmacist Internal Medicine 07/07/23 11/20/24 Priscilla Cody [address] [place] [address] Gastroenterology 11/21/24 Codie Quintero MD [address] [place] [address] Hematology and Oncology 11/21/24 Teodoro Palomino DPM [address] [place] [address] Podiatry 11/21/24 Manoj Locke MD [address] [place] [address] General Surgery 11/21/24 [facility] Health 02/17/24 [facility] Cnc Cutting Operator Mental Health 11/21/24 YOAN Cool ([facility]) Home Monitoring Clinician 11/21/24 documented as of this encounter
--- OUTSIDE RECORDS SUMMARY | 2024-12-02 09:13 | XMS_ITS | Encounter Summary ---
Author Organization [facility] Address 399 [facility] [address] [place] [address] Phone Care Team Providers Care Electrodynamicist Name Role Phone Sonali Harper MD Primary Care Provider [phone] Encounter Details Date Type Department Care Team (Late st Contact Info) Description 07/11/2020 Ancillary Orders [facility],Outside Imaging 30 [place] [address] System, Provider Not In, [place] [address] Social History Tobacco Use Types Packs/Day Years [...] on filedocumented in this encounter Care Teams Electrodynamicist Relationship Specialty Start Date End Date Sonali Harper MD [address] [place] [address] PCP - General Family Medicine 07/07/20 documented as of this encounter Additional Source Comments The information contained in this document represents components of the legal health record. It is not the complete legal health record.[facility]
[2024-12-02 11:53] LABS: Alanine Aminotransferase 11 U/L (0-31); Albumin Level 3.9 g/dL (3.5-5.0); Alkaline Phosphatase 84 U/L (39-117); Anion Gap 12 (12-20); Aspartate Amino Transferase 16 U/L (5-31); Blood Urea Nitrogen 10 mg/dL (9-16); Calcium 8.8 mg/dL (8.4-10.2); Carbon Dioxide 26 mmol/L (22-29); Chloride 107 mmol/L (96-108); Cholesterol 152 mg/dL (<200); Estimated Glomerular Filt Rate > 60; HDL Cholesterol 38 mg/dL (>40); Lipase 21 U/L (8-78); Potassium 3.7 mmol/L (3.3-5.1); Sodium 141 mmol/L (135-145); Total Protein 6.9 g/dL (6.5-8.0); Triglycerides 90 mg/dL (<150)
== END 2024-12-02 08:41 | disposition home or self-care (01) ==
LOC: HO.HHCL 08:40
PROVIDERS: PCP Registered Nurse; Referring Provider Nurse Practitioner Family; Visit Provider Registered Nurse
DX: Z00.00 Encounter for general adult medical examination without abnormal findings (principal); I10 Essential (primary) hypertension; R10.9 Unspecified abdominal pain; K58.9 Irritable bowel syndrome, unspecified; E03.8 Other specified hypothyroidism; E11.9 Type 2 diabetes mellitus without complications; Z79.4 Long term (current) use of insulin
CPT/HCPCS: 36415; 80053; 80061; 83690; 84443; 86140

== ENCOUNTER 2024-12-23 08:35 | Outpatient (REF) | payer MEDICAID, SELFPAY ==
--- OUTSIDE RECORDS SUMMARY | 2024-12-23 09:05 | XMS_ITS | Encounter Summary ---
Author Organization [employer] Address 75 [facility] 7t [place] [address] Care Team Providers Care Screen Cleaner Name Role Phone Ana Luisa Bourne [facility] Primary Care Provider Geeta Zeng PharmD Unavailable Priscilla Cody Unavailable Codie Quintero MD Unavailable [phone] Teodoro Palomino DPM Unavailable Manoj Locke MD Unavailable Reason for Visit * Reason Comments Med Refill Encounter Details Date Type Department Care Team (Late st Contact Info) Description 11/08/2022 Refill [facility] 230 [place], [place] [phone] [facility] 230 [place] [address] Left otitis media with effusion Social History [...] documented as of this encounter Care Teams Screen Cleaner Relationship Specialty Start Date End Date Ana Luisa Bourne FNP 230 [place] [address] PCP - General Family Medicine 11/01/21 Geeta Zeng PharmD 230 [place] [address] Pharmacist Internal Medicine 07/07/23 11/20/24 Priscilla Cody [address] [place] [address] Gastroenterology 11/21/24 Codie Quintero MD [address] [place] [address] Hematology and Oncology 11/21/24 Teodoro Palomino DPM [address] [place] [address] Podiatry 11/21/24 Manoj Locke MD [address] [place] [address] General Surgery 11/21/24 [facility] 02/17/24 [facility] Pc Technician Mental Health 11/21/24 YOAN Cool ([facility]) Home Monitoring Clinician 11/21/24 documented as of this encounter
--- OUTSIDE RECORDS SUMMARY | 2024-12-23 09:05 | XMS_ITS | Encounter Summary ---
Author Organization [employer] Address [address] [facility] 7t [place] [address] Care Team Providers Care Museum Informatics Specialist Name Role Phone Ana Luisa Bourne Primary Care Provider Geeta Zeng PharmD Unavailable Priscilla Cody Unavailable Codie Quintero MD Unavailable [phone] Teodoro Palomino DPM Unavailable Manoj Locke MD Unavailable [phone] Reason for Visit * Reason Onset Date Comments Nurse Triage 02/27/2023 Encounter Details Date Type Department Care Team (Late st Contact Info) Description 02/27/2023 Telephone [facility] [address] [place], [place] [phone] Ana Luisa Bourne FNP 505 [place], [place] [phone] Nurse Triage Social History Tobacco Use Types [...] accepted this outcome Please contact pt at [phone] (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) documented in this encounter Plan of Treatment Not on file documented as of this encounter Visit Diagnoses Not on filedocumented in this encounter Additional Health Concerns Assessment Noted Time PHQ-9 Depression Total Score: 0 03/22/19 23 2:05 PM EST documented as of this encounter Care Teams Museum Informatics Specialist Relationship Specialty Start Date End Date Ana Luisa Bourne FNP [address] [place] [address] PCP - General Family Medicine 11/01/21 Geeta Zeng PharmD 230 [place] [address] Pharmacist Internal Medicine 07/07/23 11/20/24 Priscilla Cody [address] [place] [address] Gastroenterology 11/21/24 Codie Quintero MD [address] [place] [address] Hematology and Oncology 11/21/24 Teodoro Palomino DPM [address] [place] [address] Podiatry 11/21/24 Manoj Locke MD [address] [place] [address] General Surgery 11/21/24 [facility] Health 02/17/24 [facility] Reimbursement Liaison Mental Health 11/21/24 YOAN Cool (VNA) Home Monitoring Clinician 11/21/24 documented as of this encounter
--- OUTSIDE RECORDS SUMMARY | 2024-12-23 09:05 | XMS_ITS | Encounter Summary ---
Author Organization [employer] Address [address] [facility] [address] 7t [place] [address] Care Team Providers Care Shoe Patternmaker Name Role Phone Ana Luisa Bourne Primary Care Provider [phone] Priscilla Cody Unavailable Codie Quintero MD Unavailable [phone] Teodoro Palomino DPSolis Unavailable Manoj Locke MD Unavailable [phone] Encounter Details Date Type Department Care Team (Late st Contact Info) Description 12/21/2024 Telephone [facility] MEDICINE 230 [place] [address] Ana Luisa Bourne FNP [address] [place], [place] [phone] Social History Tobacco Use Types Packs/Day Years [...] encounter Miscellaneous Notes * Telephone Encounter - Tanika Crandall - 12/21/2024 11:16 AM EDT Pharmacy CHW attempted outreach call on 12/21/24 for CDTM - Diabetes appointment; however, unable to reach patient. LVM for patient to contact Tanika Crandall at [phone]. documented in this encounter Plan of Treatment [...] documented as of this encounter Care Teams Shoe Patternmaker Relationship Specialty Start Date End Date Ana Luisa Bourne FNP [address] [place] [address] PCP - General Family Medicine 11/01/21 Priscilla Cody [address] [place] [address] Gastroenterology 11/21/24 Codie Quintero MD [address] [place] [address] Hematology and Oncology 11/21/24 Teodoro Palomino DPM [address] [address] Podiatry 11/21/24 Manoj Locke MD [address] [address] General Surgery 11/21/24 [facility] Health 02/17/24 [facility] Section Cutter Mental Health 11/21/24 YOAN Cool (VNA) Home Monitoring Clinician 11/21/24 documented as of this encounter
--- OUTSIDE RECORDS SUMMARY | 2024-12-23 09:05 | XMS_ITS | Encounter Summary ---
Author Organization [facility] Address [address] [facility] [address] [place] [address] Phone Care Team Providers Care Communications Specialist Name Role Phone Sonali Harper MD Primary Care Provider [phone] Encounter Details Date Type Department Care Team (Late st Contact Info) Description 07/11/2020 Ancillary Orders [facility],Outside Imaging [address] [place] [address] System, Provider Not In, [place] [address] Social History Tobacco Use Types Packs/Day Years [...] on filedocumented in this encounter Care Teams Communications Specialist Relationship Specialty Start Date End Date Sonali Harper MD [address] [place] [address] [email or web address] PCP - General Family Medicine 07/07/20 documented as of this encounter Additional Source Comments The information contained in this document represents components of the legal health record. It is not the complete legal health record.[facility]
--- OUTSIDE RECORDS SUMMARY | 2024-12-23 09:05 | XMS_ITS | Encounter Summary ---
Author Organization [facility] Address [address] [facility] [address] [place] [address] Phone Care Team Providers Care Supervisor Pipe Joints Name Role Phone Sonali Harper MD Primary Care Provider [phone] Encounter Details Date Type Department Care Team (Late st Contact Info) Description 07/11/2020 Ancillary Orders [facility],Outside Imaging 30 [place] [address] System, Provider [place] In, [place] [address] Social History Tobacco Use Types Packs/Day Years [...] on filedocumented in this encounter Care Teams Supervisor Pipe Joints Relationship Specialty Start Date End Date Sonali Harper MD [address] [place] [address] [email or web address] PCP - General Family Medicine 07/07/20 documented as of this encounter Additional Source Comments The information contained in this document represents components of the legal health record. It is not the complete legal health record.[facility]
--- OUTSIDE RECORDS SUMMARY | 2024-12-23 09:05 | XMS_ITS | Encounter Summary ---
Author Organization [facility] Address [address] [facility] [address] [place] [address] Phone Care Team Providers Care Milk And Cream Grader Name Role Phone Sonali Harper MD Primary Care Provider [phone] Encounter Details Date Type Department Care Team (Late st Contact Info) Description 07/11/2020 Ancillary Orders [facility],Outside Imaging 30 [place] [address] System, Provider Not In, [place] [address] Social History Tobacco Use Types Packs/Day Years [...] on filedocumented in this encounter Care Teams Milk And Cream Grader Relationship Specialty Start Date End Date Sonali Harper MD 230 [facility] 1 [place] [address] [email or web address] PCP - General Family Medicine 07/07/20 documented as of this encounter Additional Source Comments The information contained in this document represents components of the legal health record. It is not the complete legal health record.[facility]
--- OUTSIDE RECORDS SUMMARY | 2024-12-23 09:05 | XMS_ITS | Encounter Summary ---
Author Organization [employer] Address 75 [facility] 7t [place] [address] Care Team Providers Care Clinical Exercise Specialist Name Role Phone Ana Luisa Bourne Primary Care Provider [phone] Geeta Zeng PharmD Unavailable [phone] Priscilla Cody Unavailable Codie Quintero MD Unavailable [phone] Teodoro Palomino DPM Unavailable Manoj Locke MD Unavailable [phone] Reason for Visit * Reason Comments Med Change Request Encounter Details Date Type Department Care Team (Late st Contact Info) Description 09/18/2022 Refill [facility] MEDICINE 230 [place] [address] Ana Luisa Bourne FNP 505 [place], [place] [phone] Type 2 diabetes mellitus without complication, with long-term current use of insulin ([facility]) Social History Tobacco Use Types Packs/Day Years [...] complication, with long-term current use of insulin (HCC) documented in this encounter Additional Health Concerns Assessment Noted Time PHQ-9 Depression Total Score: 0 03/22/19 23 2:05 PM EST documented as of this encounter Care Teams Clinical Exercise Specialist Relationship Specialty Start Date End Date Ana Luisa Bourne FNP 230 [place] [address] PCP - General Family Medicine 11/01/21 Geeta Zeng, DaphneD 230 [place] [address] Pharmacist Internal Medicine 07/07/23 11/20/24 Priscilla Cody [address] [place] [address] Gastroenterology 11/21/24 Codie Quintero MD [address] [place] [address] Hematology and Oncology 11/21/24 Teodoro Palomino DPM [address] [place] [address] Podiatry 11/21/24 Manoj Locke MD [address] [place] [address] General Surgery 11/21/24 [facility] Health 02/17/24 Isara Warp Tying Machine Tender Mental Health 11/21/24 YOAN Cool (VNA) Home Monitoring Clinician 11/21/24 documented as of this encounter
--- OUTSIDE RECORDS SUMMARY | 2024-12-23 09:05 | XMS_ITS | Encounter Summary ---
Author Organization [employer] Address [address] [facility] 7t [place] [address] Care Team Providers Care Belt Knife Feeder Name Role Phone Ana Luisa Bourne [facility] Primary Care Provider Geeta Zeng PharmD Unavailable Priscilla Cody Unavailable Codie Quintero MD Unavailable [phone] Teodoro Palomino DPM Unavailable [phone] Manoj Locke MD Unavailable [phone] Reason for Visit * Reason Comments Med Refill Encounter Details Date Type Department Care Team (Late st Contact Info) Description 11/06/2022 Refill [facility] 230 [place], [place] [phone] [facility] 230 [place] [address] Left otitis media with effusion Social History [...] documented as of this encounter Care Teams Belt Knife Feeder Relationship Specialty Start Date End Date Ana Luisa Bourne FNP [address] [place] [address] PCP - General Family Medicine 11/01/21 Geeta Zeng PharmD 230 [place] [address] Pharmacist Internal Medicine 07/07/23 11/20/24 Priscilla Cody [address] [place] [address] Gastroenterology 11/21/24 Codie Quintero MD [address] [place] [address] Hematology and Oncology 11/21/24 Teodoro Palomino DPM [address] [place] [address] Podiatry 11/21/24 Manoj Locke MD [address] [place] [address] General Surgery 11/21/24 [facility] Health 02/17/24 [facility] Director Operating Mental Health 11/21/24 YOAN Cool (VNA) Home Monitoring Clinician 11/21/24 documented as of this encounter
--- OUTSIDE RECORDS SUMMARY | 2024-12-23 09:05 | XMS_ITS | Encounter Summary ---
Author Organization [facility] Address [address] [facility] [address] [place] [address] Phone Care Team Providers Care Diamond Die Polisher Name Role Phone Sonali Harper MD Primary Care Provider [phone] Encounter Details Date Type Department Care Team (Late st Contact Info) Description 07/11/2020 Ancillary Orders [facility],Outside Imaging 30 [place] [address] System, Provider [place] In, [place] [address] Social History Tobacco Use Types Packs/Day Years [...] on filedocumented in this encounter Care Teams Diamond Die Polisher Relationship Specialty Start Date End Date Sonali Harper MD [address] [place] [address] [email or web address] PCP - General Family Medicine 07/07/20 documented as of this encounter Additional Source Comments The information contained in this document represents components of the legal health record. It is not the complete legal health record.[facility]
--- OUTSIDE RECORDS SUMMARY | 2024-12-23 09:05 | XMS_ITS | Encounter Summary ---
Author Organization [employer] Address [address] [facility] [address] 7t [place] [address] Care Team Providers Care Environmental Sampler Name Role Phone Ana Luisa Bourne Primary Care Provider Geeta Zeng PharmD Unavailable Priscilla Cody Unavailable Codie Quintero MD Unavailable [phone] Teodoro Palomino DPSolis Unavailable [phone] Manoj Locke MD Unavailable Encounter Details Date Type Department Care Team (Late st Contact Info) Description 09/15/2023 Telephone [facility] MEDICINE 230 [place] [address] Ana Luisa Bourne FNP [address] [place], [place] [address] Social History Tobacco Use Types Packs/Day Years [...] Component 13.7( 5 10:20 AM EDT) No Sarah-iPnky randhawa, Geeta, PharmD Quit using tobacco (cigarettes, smokeless, etc) Tobacco Use No Eduardos-Pinky randhawa, Geeta, PharmD documented as of this encounter Visit Diagnoses Not on filedocumented in this encounter Additional Health Concerns Assessment Noted Time PHQ-9 Depression Total Score: 6 07/18/19 24 9:05 AM EDT documented as of this encounter Care Teams Environmental Sampler Relationship Specialty Start Date End Date Ana Luisa Bourne FNP [address] [place] [address] PCP - General Family Medicine 11/01/21 Geeta Zeng, PharmD 230 [place] [address] Pharmacist Internal Medicine 07/07/23 11/20/24 Priscilla Cody [address] [place] [address] Gastroenterology 11/21/24 Codie Quintero MD [address] [place] [address] Hematology and Oncology 11/21/24 Teodoro Palomino DPM [address] [place] [address] Podiatry 11/21/24 Manoj Locke MD [address] [place] [address] General Surgery 11/21/24 [facility] Health 02/17/24 [facility] Cement Finishing Supervisor Mental Health 11/21/24 YOAN Cool (VNA) Home Monitoring Clinician 11/21/24 documented as of this encounter
--- OUTSIDE RECORDS SUMMARY | 2024-12-23 09:05 | XMS_ITS | Encounter Summary ---
Author Organization [employer] Address [address] [facility] [address] 7t [place] [address] Care Team Providers Care Nautical Instrument Mechanic Name Role Phone [facility]up[facility]ish [facility] Primary Care Provider [phone] Geeta Zeng PharmD Unavailable [phone] Priscilla Cody Unavailable Codie Quintero MD Unavailable [phone] Teodoro Palomino DPM Unavailable [phone] Manoj Locke MD Unavailable [phone] Encounter Details Date Type Department Care Team (Late st Contact Info) Description 02/03/2024 Orders Only [facility] MEDICINE 230 [place] [address] Provider, MD William Social History Tobacco Use [...] Ql NAAT (10/14/2024 8:34 AM EDT) Pathologist [facility] Influenza A PCR NEGATIVE Negative [facility] Influenza B PCR NEGATIVE Negative [facility] Resp Syncy Virus RNA Qual PCR NEGATIVE Negative [facility] SARS COV2 PCR NEGATIVE Negative [facility] Comment:All test results mus t [...] use by authorized laboratories.Testing performed on the [employer] GeneXpert utilizingreal-time RT-PCR.All SARS CoV2 and positive influenza A/B results arereported to [facility]. 10/14/2024 8:34 AM EDT 10/14/2024 8:41 AM EDT us Generic External Data Provider LAB MICROBIOLOGY - GENERAL ORDERABLES Final Result [facility] [address] [place] [address] [phone] * (ABNORMAL) Confirmatory Syphilis Profile (09/20/2024 11:05 AM EDT) Pathologist [facility] Rapid Plasma Reagin, Quant Reactive 1:2(A) Nonreactive [facility] Treponema pallidum Antibody, Particle Agglutination Reactive(A) Nonreactive [facility] Comment:These results must b e reported by the ordering clinician orclinical facility to the [facility] required by state law.Testing performed at: [address] [address] 09/20/2024 11:0 5 AM EDT 09/21/2024 8:11 AM EDT us Lexi Mancera [facility] LAB BLOOD ORDERABLES Elaine l Result Performing Organization Address City/[facility]/ZIP Co de Phone Number [facility] [address] [place] [phone] * Creatinine, Serum (09/20/2024 11:05 AM EDT) Creatinine, Serum 0.70 0.5 - 1.4 mg/dL [facility] Estimated Glomerular Filt Rate >60 [facility] Comment:Chronic Kidney Disea se: Estimated GFR < 60 mL/min/1.69y8Muvlkr Kidney Disease: Estimated GFR < 15 mL/min/1.73m2 09/20/2024 11:0 5 AM EDT 09/20/2024 1:43 PM EDT us Generic External Data Provider LAB BLOOD ORDERAB LES Final Result Performing Organization Address [facility] Co de Phone Number [facility] [address] [place] [phone] * BUN (Blood Urea Nitrogen) (09/20/2024 11:05 AM EDT) Urea Nitrogen (BUN) 12 9 - 16 mg/dL [facility] 09/20/2024 11:0 5 AM EDT 09/20/2024 1:43 PM EDT us Generic External Data Provider LAB BLOOD ORDERAB LES Final Result Performing Organization Address [facility]/ZIP Co de Phone Number [facility] [address] [place] [phone] * (ABNORMAL) Comprehensive Metabolic Panel (06/02/2024 2:31 PM EDT) Pathologist [facility] Sodium 144 135 - 145 mmol/L [facility] Potassium 3.6 3.3 - 5.1 mmol/L [facility] Chloride 108 96 - 108 mmol/L [facility] Carbon Dioxide 29 22 - 29 mmol/L [facility] Anion Gap 11(L) 12 - 20 [facility] Urea Nitrogen (BUN) 4(L) 9 - 16 mg/dL [facility] Creatinine, Serum 0.66 0.5 - 1.4 mg/dL [facility] Estimated Glomerular Filt Rate >60 [facility] Comment:Chronic Kidney Disea se: Estimated GFR < 60 mL/min/1.30o0Khdcph Kidney Disease: Estimated GFR < 15 mL/min/1.73m2 Glucose 188(H) 60 - 115 mg/dL [facility] Calcium 9.4 8.4 - 10.2 mg/dL [facility] Bilirubin, Total 0.3 0.0 - 1.0 mg/dL [facility] Aspartate Amino Transferase 20 5 - 31 U/L [facility] Alanine Aminotransferase 18 0 - 31 U/L [facility] Total Protein 7.2 6.5 - 8.0 g/dL [facility] Albumin Level 3.8 3.5 - 5.0 g/dL [facility] Alkaline Phosphatase 84 39 - 117 U/L [facility] 06/02/2024 2:31 PM EDT 06/02/2024 2:31 PM EDT us Generic External Data Provider LAB BLOOD ORDERAB LES Final Result [facility] [address] [place] [phone] * CBC auto differential (06/02/2024 2:31 PM EDT) Pathologist [facility] White Blood Count 9.0 4.8 - 10.8 X10*3/uL [facility] Red Blood Count 5.24 4.20 - 5.50 X10*6/uL [facility] Hemoglobin 14.3 12.0 - 16.0 g/dl [facility] Hematocrit 46.1 37.0 - 47.0 % [facility] Mean Corpuscular Volume 88.0 80.0 - 98.0 fL [facility] Mean Corpuscular Hemoglobin 27.3 27.0 - 33.0 pg [facility] Mean Corpuscular HGB Conc 31.0 31.0 - 35.0 g/dl [facility] Red Cell Distribution Width 13.7 11.0 - 16.0 % [facility] Platelet Count 286 160 - 400 X10*3/uL [facility] Mean Platelet Volume 10.2 9.4 - 12.3 fL [facility] Neutrophils Percent Auto 67.0 45 - 73 % [facility] Imm Gran Pct Auto 0.3 0.0 - 0.4 % [facility] Lymphocytes Percent Auto 24.3 20 - 40 % [facility] Monocytes Percent Auto 6.5 2 - 11 % [facility] Eosinophils Percent Auto 1.0 0 - 4 % [facility] Basophils Percent Auto 0.9 0 - 2 % [facility] NRBC Pct Auto 0.0 0.0 - 0.2 /100WBC [facility] Neutrophils Absolute Auto 6.0 2.0 - 8.3 x10*3/uL [facility] Imm Gran Abs Auto 0.03 0.00 - 0.03 X10*3/uL [facility] Lymphocytes Absolute Auto 2.2 1.2 - 4.9 X10*3/uL [facility] Monocytes Absolute Auto 0.6 0.1 - 1.2 X10*3/uL [facility] Eosinophils Absolute Auto 0.1 0.0 - 0.4 X10*3/uL [facility] Basophils Absolute Auto 0.1 0.0 - 0.2 X10*3/uL [facility] NRBC Abs Auto 0.000 0.0 - 0.012 X10*3/uL [facility] 06/02/2024 2:31 PM EDT 06/02/2024 2:31 PM EDT us Generic External Data Provider LAB BLOOD ORDERAB LES Final Result [facility] [address] [place] [address] [phone] * Hm Colonoscopy (01/16/2024 2:15 PM EST) us Historical Provider HEALTH MAINTENANCE Final Result documented in this encounter Visit Diagnoses Not on filedocumented in this encounter Additional Health Concerns Assessment Noted Time PHQ-9 Depression Total Score: 9 12/18/19 24 1:33 PM EDT documented as of this encounter Care Teams Nautical Instrument Mechanic Relationship Specialty Start Date End Date Ana Luisa Bourne FNP [address] [place] [address] PCP - General Family Medicine 11/01/21 Geeta Zeng, DaphneD [address] [place] [address] Pharmacist Internal Medicine 07/07/23 11/20/24 Pricsilla Cody [address] [place] [address] Gastroenterology 11/21/24 Codie Quintero MD [address] [place] [address] Hematology and Oncology 11/21/24 Teodoro Palomino DPM [address] [place] [address] Podiatry 11/21/24 Manoj Locke MD [address] [address] General Surgery 11/21/24 [facility] Health 02/17/24 [facility] Cor[facility] Corporal Mental Health 11/21/24 YOAN Cool (A) Home Monitoring Clinician 11/21/24 documented as of this encounter
--- OUTSIDE RECORDS SUMMARY | 2024-12-23 09:05 | XMS_ITS | Encounter Summary ---
Author Organization [employer] Address [address] [facility] 7t [place] [address] Care Team Providers Care Underground Mining Section Foreman Name Role Phone Ana Luisa Bourne MATERIAL FLOW ENGINEER Primary Care Provider Geeta Zeng PharmD Unavailable Priscilla Cody Unavailable Codie Quintero MD Unavailable [phone] Teodoro Palomino DPM Unavailable [phone] Manoj Locke MD Unavailable [phone] Reason for Visit * Reason Comments Med Refill Encounter Details Date Type Department Care Team (Late st Contact Info) Description 12/31/2023 Refill [facility] MEDICINE 230 [place], [place] [phone] Keith Hernandez MD 230 [place], [place] [phone] Alcohol use disorder, severe, dependence (CMS/HCC) Social [...] Diagnosis Alcohol use disorder, severe, dependence (CMS/HCC) (HCC) documented in this encounter Additional Health Concerns Assessment Noted Time PHQ-9 Depression Total Score: 9 12/18/19 24 1:33 PM EDT documented as of this encounter Care Teams Underground Mining Section Foreman Relationship Specialty Start Date End Date Ana Luisa Bourne FNP [address] [place] [address] [place] [address] PCP - General Family Medicine 11/01/21 Geeta Zeng, Santosh 230 [place] [address] Pharmacist Internal Medicine 07/07/23 11/20/24 Priscilla Cody [address] [place] [address] Gastroenterology 11/21/24 Codie Quintero MD [address] [place] [address] Hematology and Oncology 11/21/24 Teodoro Palomino DPM [address] [place] [address] Podiatry 11/21/24 Manoj Locke MD [address] [address] General Surgery 11/21/24 [facility] Health 02/17/24 [facility] Investor Relations Manager Mental Health 11/21/24 YOAN Cool (VNA) Home Monitoring Clinician 11/21/24 documented as of this encounter
--- OUTSIDE RECORDS SUMMARY | 2024-12-23 09:05 | XMS_ITS | Encounter Summary ---
Author Organization [employer] Address [address] [facility] 7t [place] [address] Care Team Providers Care C D Reactor Operator Name Role Phone Ana Luisa Bourne Primary Care Provider Geeta Zeng PharmD Unavailable Priscilla Cody Unavailable Codie Quintero MD Unavailable [phone] Teodoro Palomino DPM Unavailable Manoj Locke MD Unavailable [phone] Encounter Details Date Type Department Care Team (Late st Contact Info) Description 06/19/2022 Telephone [facility] [address] [place] [address] Ana Luisa Bourne FNP [address] [place], [place] [id number] Social History Tobacco Use Types Packs/Day Years [...] documented as of this encounter Care Teams C D Reactor Operator Relationship Specialty Start Date End Date Ana Luisa Bourne FNP 230 [place] [address] PCP - General Family Medicine 11/01/21 Geeta Zeng, DaphneD 230 [place] [address] Pharmacist Internal Medicine 07/07/23 11/20/24 Priscilla Cody [address] [place] [address] Gastroenterology 11/21/24 Codie Qunitero MD [address] [place] [address] Hematology and Oncology 11/21/24 Teodoro Palomino DPM [address] [place] [address] Podiatry 11/21/24 Manoj Locke MD [address] [place] [address] General Surgery 11/21/24 [facility] Health 02/17/24 Isara Farmer General Mental Health 11/21/24 YOAN Cool (VNA) Home Monitoring Clinician 11/21/24 documented as of this encounter
--- OUTSIDE RECORDS SUMMARY | 2024-12-23 09:05 | XMS_ITS | Encounter Summary ---
Author Organization [employer] Address [address] [facility] 7t [place] [address] Care Team Providers Care Supervisor Landscape Name Role Phone Ana Luisa Bourne Primary Care Provider [phone] Geeta Zeng PharmD Unavailable Priscilla Cody Unavailable Codie Quintero MD Unavailable [phone] Teodoro Palomino DPM Unavailable [phone] Manoj Locke MD Unavailable Reason for Visit * Reason Onset Date Comments Med Refill 01/09/2023 Encounter Details Date Type Department Care Team (Late st Contact Info) Description 01/09/2023 Refill [facility] [address] [place] [address] Ana Luisa Bourne FNP 505 [place], [place] [phone] Type 2 diabetes mellitus without complication, with long-term current use of insulin ([facility]) Social History Tobacco Use Types [...] 12:30 PM EDT Tc from Jason from [facility] requesting medication refill for OXcarbazepine (Trileptal) 600 MG tablet, tamoxifen (Nolvadex) 20 MG chemo tablet, dapagliflozin (Farxiga) 5 MG. Jason alsostated that he was given 10mg of the dapagliflozin 5mg medical technical writer did not see that on med list please verify. Please call [phone] documented in this encounter Plan of Treatment Not on file documented as of this encounter Visit Diagnoses Diagnosis Type 2 diabetes mellitus without complication, with long-term current use of insulin (HCC) documented in this encounter Additional Health Concerns Assessment Noted Time PHQ-9 Depression Total Score: 0 03/22/19 23 2:05 PM EST documented as of this encounter Care Teams Supervisor Landscape Relationship Specialty Start Date End Date Ana Luisa Bourne FNP 230 [place] [address] PCP - General Family Medicine 11/01/21 Geeta Zeng PharmD 230 [place] [address] Pharmacist Internal Medicine 07/07/23 11/20/24 Priscilla Cody [address] [place] [address] Gastroenterology 11/21/24 Codie Quintero MD [address] [place] [address] Hematology and Oncology 11/21/24 Teodoro Palomino DPM [address] [place] [address] Podiatry 11/21/24 Manoj Locke MD [address] [address] General Surgery 11/21/24 [facility] Home Health 02/17/24 Isara Well Servicing Rig Operator Mental Health 11/21/24 YOAN Cool (VNA) Home Monitoring Clinician 11/21/24 documented as of this encounter
--- OUTSIDE RECORDS SUMMARY | 2024-12-23 09:05 | XMS_ITS | Encounter Summary ---
Author Organization [facility] Address [address] [facility] [address] [place] [address] Phone Care Team Providers Care Tongue Binder Name Role Phone Sonali Harper MD Primary Care Provider [phone] Encounter Details Date Type Department Care Team (Late st Contact Info) Description 07/11/2020 Ancillary Orders [facility],Outside Imaging [address] [place] [address] System, Provider Not In, [place] [address] Social History Tobacco Use Types Packs/Day Years [...] on filedocumented in this encounter Care Teams Tongue Binder Relationship Specialty Start Date End Date Sonali Harper MD 230 [facility] 1 [place] [address] [email or web address] PCP - General Family Medicine 07/07/20 documented as of this encounter Additional Source Comments The information contained in this document represents components of the legal health record. It is not the complete legal health record.[facility]
--- OUTSIDE RECORDS SUMMARY | 2024-12-23 09:05 | XMS_ITS | Encounter Summary ---
Author Organization [employer] Address [address] 7t [place] [address] Care Team Providers Care Rock Picker Name Role Phone Ana Luisa Bourne Primary Care Provider [phone] Geeta Zeng PharmD Unavailable Priscilla Cody Unavailable Codie Quintero MD Unavailable [phone] Teodoro Palomino DPM Unavailable [phone] Manoj Locke MD Unavailable [phone] Reason for Visit * Reason Comments Med Refill Encounter Details Date Type Department Care Team (Late st Contact Info) Description 08/29/2024 Refill [facility] 230 [place] [address] Ana Luisa Bourne FNP 505 [place], [place] [phone] Other hyperlipidemia Social History Tobacco Use Types [...] documented as of this encounter Care Teams Rock Picker Relationship Specialty Start Date End Date Ana Luisa Bourne FNP [address] [place] [address] PCP - General Family Medicine 11/01/21 Geeta Zeng, Santosh 230 [place] [address] Pharmacist Internal Medicine 07/07/23 11/20/24 Priscilla Cody [address] [place] [address] Gastroenterology 11/21/24 Codie Quintero MD [address] [place] [address] Hematology and Oncology 11/21/24 Teodoro Palomino DPM [address] [place] [address] Podiatry 11/21/24 Manoj Locke MD [address] [place] [address] General Surgery 11/21/24 [facility] 02/17/24 [facility] Vice President Of Customer Service Mental Health 11/21/24 YOAN Cool (VNA) Home Monitoring Clinician 11/21/24 documented as of this encounter
--- OUTSIDE RECORDS SUMMARY | 2024-12-23 09:05 | XMS_ITS | Encounter Summary ---
Author Organization [employer] Address [address] [facility] 7t [place] [address] Care Team Providers Care Drug Inspector Name Role Phone Ana Luisa Bourne Primary Care Provider [phone] Geeta Zeng PharmD Unavailable Priscilla Cody Unavailable Codie Quintero MD Unavailable [phone] Teodoro Palomino DPM Unavailable [phone] Manjo Locke MD Unavailable Reason for Visit * Reason Comments Med Refill Encounter Details Date Type Department Care Team (Late st Contact Info) Description 05/17/2022 Refill [facility] 230 [place] [address] Ana Luisa Bourne FNP 505 [place], [place] [phone] Social History Tobacco Use Types Packs/Day Years [...] documented as of this encounter Care Teams Drug Inspector Relationship Specialty Start Date End Date Ana Luisa Bourne FNP 230 [place] [address] PCP - General Family Medicine 11/01/21 Geeta Zeng, DaphneD 230 [place] [address] Pharmacist Internal Medicine 07/07/23 11/20/24 Priscilla Cody [address] [place] [address] Gastroenterology 11/21/24 Codie Quintero MD [address] [place] [address] Hematology and Oncology 11/21/24 Teodoro Palomino DPM [address] [place] [address] Podiatry 11/21/24 Manoj Locke MD [address] [place] [address] General Surgery 11/21/24 [facility] 02/17/24 [facility] Draw Bench Operator Helper Mental Health 11/21/24 YOAN Cool (A) Home Monitoring Clinician 11/21/24 documented as of this encounter
--- OUTSIDE RECORDS SUMMARY | 2024-12-23 09:05 | XMS_ITS | Encounter Summary ---
Author Organization [employer] Address [address] [facility] 7t [place] [address] Care Team Providers Care Commercial Underwriter Name Role Phone Ana Luisa Bourne Primary Care Provider [phone] Geeta Zeng PharmD Unavailable Priscilla Cody Unavailable Codie Quintero MD Unavailable [phone] Teodoro Palomino DPSolis Unavailable [phone] Manoj Locke MD Unavailable Reason for Visit * Reason Onset Date Comments Results 03/07/2023 Encounter Details Date Type Department Care Team ([facility] st Contact Info) Description 03/07/[address] [facility] MED & PEDS 505 [place], [place] [phone] Ana Luisa Bourne FNP 505 [place], [place] [phone] Results Social History Tobacco Use Types Packs/Day [...] when done: 02/05 Please contact pt at [phone] TC placed to patient regarding above message at all numbers. Preferred number above had full VM boxso no message could be left. Message left at main number to try us back. Interpretation of results below from Angélica Bourne. Routing back to [facility] nurses to try again. Please [...] when done: 02/05 Please contact pt at [phone] documented in this encounter Plan of Treatment Not on file documented as of this encounter Visit Diagnoses Not on filedocumented in this encounter Additional Health Concerns Assessment Noted Time PHQ-9 Depression Total Score: 0 03/22/19 23 2:05 PM EST documented as of this encounter Care Teams Commercial Underwriter Relationship Specialty Start Date End Date Ana Luisa Bourne FNP 230 [place] [address] PCP - General Family Medicine 11/01/21 Geeta Zeng, DaphneD 230 [place] [address] Pharmacist Internal Medicine 07/07/23 11/20/24 Priscilla Cody [address] [place] [address] Gastroenterology 11/21/24 Codie Quintero MD [address] [place] [address] Hematology and Oncology 11/21/24 Teodoro Palomino DPM [address] [place] [address] Podiatry 11/21/24 Manoj Locke MD [address] [place] [address] General Surgery 11/21/24 [facility] Home Health 02/17/24 Isara Travel Manager Mental Health 11/21/24 YOAN Cool (VNA) Home Monitoring Clinician 11/21/24 documented as of this encounter
--- OUTSIDE RECORDS SUMMARY | 2024-12-23 09:05 | XMS_ITS | Clinical Summary ---
Author Organization [facility] Address [address] [facility] [address] [place] [address] Phone Care Team Providers Care Boiler Blower Name Role Phone Sonali Harper MD Primary Care Provider [phone] Allergies No known active allergies Medications atorvastatin (LIPITOR) 80 MG tablet Take 80 mg by mouth daily. Active docusate sodium (COLACE) 100 MG capsule Take 100 mg by mouth 2 (two) times a day. Active ferrous sulfate 325 mg (65 mg cachil dehe iron) tablet Take 325 mg by mouth [...] 06/16/2022 06/16/2020, 04/11, 05/03/2020, Additional history exists RSV VACCINE (1 - Risk 50-74 years 1-dose series) 2022 INFLUENZA VACCINE (#1) 2024 , 11/30/2018, 01/07/2018, [...] ACO C3 ACO C3 ACO Care Teams Boiler Blower Relationship Specialty Start Date End Date Sonali Harper MD [address] [place] [address] [email or web address] PCP - General Family Medicine 07/07/20 Additional Source Comments The information contained in this document represents components of the legal health record. It is not the complete legal health record.[facility]
--- OUTSIDE RECORDS SUMMARY | 2024-12-23 09:05 | XMS_ITS | Encounter Summary ---
Author Organization [facility] Address [address] [facility] [address] [place] [address] Phone Care Team Providers Care Melangeur Operator Name Role Phone Sonali Harper MD Primary Care Provider [phone] Encounter Details Date Type Department Care Team (Late st Contact Info) Description 07/11/2020 Ancillary Orders [facility],Outside Imaging 30 [place] [address] System, Provider Not In, [place] [address] Social History Tobacco Use Types Packs/Day Years [...] on filedocumented in this encounter Care Teams Melangeur Operator Relationship Specialty Start Date End Date Sonali Harper MD 230 [facility] 1 [place] [address] [email or web address] PCP - General Family Medicine 07/07/20 documented as of this encounter Additional Source Comments The information contained in this document represents components of the legal health record. It is not the complete legal health record.[facility]
--- OUTSIDE RECORDS SUMMARY | 2024-12-23 09:05 | XMS_ITS | Encounter Summary ---
Author Organization [employer] Address [address] [facility] 7t [place] [address] Care Team Providers Care Sugar Chipper Machine Operator Name Role Phone Ana Luisa Bourne Primary Care Provider [phone] Priscilla Cody Unavailable Codie Quintero MD Unavailable [phone] Teodoro Palomino DPM Unavailable Manoj Locke MD Unavailable Encounter Details Date Type Department Care Team (Late st Contact Info) Description 12/22/2024 Results Follow-Up [facility] CHC MED & PEDS 505 [place], [place] [phone] Ana Luisa Bourne FNP 505 [place], [place] [phone] POCT Glucose, POCT Hgb A1c, Lipid Panel, Standard, Additional followed-up results: 2 Social History Tobacco Use Types Packs/Day Years [...] documented as of this encounter Care Teams Sugar Chipper Machine Operator Relationship Specialty Start Date End Date Ana Luisa Bourne FNP [address] [place] [address] PCP - General Family Medicine 11/01/21 Priscilla Cody [address] [place] [address] Gastroenterology 11/21/24 Codie Quintero MD [address] [place] [address] Hematology and Oncology 11/21/24 Teodoro Palomino DPM [address] [place] [address] Podiatry 11/21/24 Manoj Locke MD [address] [place] [address] General Surgery 11/21/24 [facility] 02/17/24 [facility] Primer Expeditor And Drier Mental Health 11/21/24 YOAN Cool (VNA) Home Monitoring Clinician 11/21/24 documented as of this encounter
--- OUTSIDE RECORDS SUMMARY | 2024-12-23 09:05 | XMS_ITS | Clinical Summary ---
Author Organization [employer] Address [address] [facility] [address] [place] [address] Care Team Providers Care Drug Safety Coordinator Name Role Phone Ana Luisa Bourne GIUSEPPE Primary Care Provider [phone] Priscilla Cody Unavailable Codie Quintero MD Unavailable [phone] Teodoro Palomino DPSolis Unavailable [phone] Manoj Locke MD Unavailable [phone] Allergies No known active allergies Medications * [...] with long-term current use of insulin (HCC) USE WITH HUMALOG KWIKPEN TWICE A DAY 100 each 11 09/17/19 24 Active triamcinolone (Kenalog) 0.1 % creamIndications:X erosis of skin Apply topically Once per day. Mix with CeraVe cream as directed and apply after bathing or showering. 80 g 3 10/10/19 24 Active ketoconazole (NIZOral) 2 % shampooIndications :Seborrheic [...] complication, with long-term current use of insulin ([facility]) Inject 40 Units under the skin with breakfast and with evening meal. 3 mL 12 12/29/19 24 Active budesonide-formote rol (Symbicort) 80-4.5 MCG/ACT inhalerIndications :Hx of wheezing Inhale 2 puffs in the morning and at bedtime. Rinse mouth with water after use to reduce aftertaste and incidence of candidiasis. Do not swallow. 1 each 11 12/29/19 24 025 Active albuterol (Ventolin HFA) [...] complication, with long-term current use of insulin ([facility]) TAKE 1 TABLET BY MOUTH EVERY MORNING [...] with long-term current use of insulin (HCC) TAKE 1 TABLET BY MOUTH TWICE DAILY WITH BREAKFAST AND DINNER 180 tablet 1 10/27/19 25 Active topiramate 50 MG tablet Take 50 mg by mouth in the morning and 50 mg in the evening. Active naltrexone (Depade) 50 MG tabletIndications: Alcohol use disorder, severe, dependence (CMS/HCC) (HCC) Take 1 tablet (50 mg) by mouth Once per day. 90 tablet 3 12/05/19 24 025 Active Problems Problem Noted Date Diagnosed Date [...] on PRN basis before trip. Anxiety 12/18/2023 Assessment & Plan (12/06/2024 11:11 AM EDT): Cocaine use disorder (CMS/HCC) 07/22/2023 Assessment & Plan (12/06/2024 11:51 AM EDT): Hx of syphilis 04/20/2023 Overview (04/20/2023): Following with [facility] ID - Dr. Nichols Consult plan July 2022: Repeat RPR Q6-12 months. Tx if titer > 1:16 Assessment & Plan (11/21/2024 3:47 PM EDT): - Reactive titer 1:2 in September 2024 Healthcare maintenance 12/29/2022 Overview (11/21/2024): Mammo: history of left breast CA. Mammo BIRADS 2 on 07/21/24 Pap: HPV neg 06/05/21, followed by Estela uHng CNM Colonoscopy: 01/16/24 at [facility] - repeat 2-3 years d/t adenoma polyps and sub optimal prep LDCT: referred to [facility] September 2023 Dental: referral to [facility] Dental Apr 2023 Last PE: 11/19/24 Hep B immune status: not-immune as of 09/2024 despite 3-dose Hep B series. Consider Heplisav 2-dose series. Assessment & Plan (04/20/2023 6:48 PM EST): Reviewed routine screening above with pt and Caitlin. 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 Reviewed med safety and SE. -Referred to [facility] LDCT for lung CA screening on 09/17/23 Assessment & Plan (09/17/2023 4:38 PM EDT): - Encouraged smoking cessation resources such as pharmacomtherapy, [facility] smoking cessation group, and [facility] pharmacy smoking cessation clinic -Cigg/day: 40 -Age started: 20 -Total years smokin -Pack year history: > 30 -Cont NRT patches and gum. Reviewed med safety and SE. -Referred to [facility] LDCT for lung CA screening on 09/17/23 Assessment & Plan (04/20/2023 6:49 PM EST): - Encouraged smoking cessation resources such as pharmacomtherapy, [facility] smoking cessation group, and [facility] pharmacy smoking cessation clinic - Discuss further [...] make med adjustments today -Plan: referral to [facility] for further management of T2DM [...] situ) of the left breast -Followed by [facility] Heme/Onc Opal Quintero -She is s/p lumpectomy, completed radiation therapy. -Continues on tamoxifen 20mg daily x 5 years (until 07/13/2025) -Denies any med SE -Plan for annual pelvic exam and annual eye exams Assessment & Plan (12/30/2023 8:43 PM EDT): -DCIS (Ductal carcinoma in situ) of the left breast -Followed by [facility] Heme/Onc Opal Quintero -She is S/p lumpectomy, completed radiation therapy. -Continues on tamoxifen 20mg daily x 5 years (until 07/13/2025) -Denies any med SE -Plan for annual pelvic exam and annual eye exams Assessment & Plan (04/20/2023 6:31 PM EST): -DCIS (Ductal carcinoma in situ) of the left breast -Followed by [facility] Heme/Onc Opal Quintero -She is S/p lumpectomy, completed radiation therapy. -Continues on tamoxifen 20mg daily x 5 years (until 07/13/2025) -Denies any med SE -Plan for annual pelvic exam and annual eye exams Assessment & Plan (12/29/2022 5:58 PM EDT): -Followed by [facility] Heme/Onc - Dr. Quintero -She is S/p [...] (11/21/2024 3:46 PM EDT): - Following with [facility] GI - Meds include: dulcolax, senna, colace, and miralax - Encouraged increased fiber intake and activity Assessment & Plan (03/25/2022 1:54 PM EST): -Continue following with management through GI Schizoaffective disorder ([facility]/HCC) 05/28/2018 Assessment & Plan (12/06/2024 11:51 AM EDT): Assessment & Plan (11/21/2024 3:48 PM EDT): -Denies SI/HI/thoughts of self harm -Followed by Dr. Slade Gracia -Continue with med management through psych team: Invega 12mg PO daily Trazodone 200mg PO at bedtime PRN Oxcarbazepine 600mg PO at bedtime Zoloft 100mg PO daily Seroquel 50mg PO at bedtime Topamax 50mg BID Previously following with Palmira Stewart. Referral to [facility] Forms team on 09/17/23 to assist with [employer]ENT eval. Assessment & Plan (09/17/2023 4:40 PM EDT): -Denies SI/HI/thoughts of self harm -Followed by Dr. Slade Gracia -Continue with med management through psych team: Invega 12mg PO daily Trazodone 200mg PO at bedtime PRN Oxcarbazepine 600mg PO at bedtime Zoloft 200mg PO daily Seroquel 100mg PO at bedtime Topamax 25mg BID Previously following with Palmira Stewart. Referral to [facility] Forms team on 09/17/23 to assist with [employer]PER[employer] AGENT eval. Assessment & Plan (04/20/2023 6:37 PM EST): -Denies SI/HI/thoughts of self harm -Followed by Dr. Slade Gracai -Continue with med management through psych team: [...] anemia 01/15/2019 12/29/2022 Dyslipidemia 05/28/2018 03/25/2022 Convulsions (CMS/HCC) 05/28/20182023 Encounters * This document contains information received from the source organization and may not represent a complete record from that organization. Date Type Department Care Team Description 12/22/2024 Results Follow-Up [facility] [address] [place] [address] Rupinderen, Ana Luisa, PUBLICATIONS DESIGNER POCT Glucose, POCT Hgb A1c, Lipid Panel, Standard, Additional followed-up results: 2 12/21/[address] [address] Ana Luisa Bourne FNP 12/03/2024 10:00 AM EDT Immunization [address] [address] Encounter for immunization 12/03/2024 Travel 12/02/2024 Patient Outreach [address] [address] Codey Seth Recovery Supports 12/02/2024 Orders Only GENERIC EXTERNAL DATA DEPARTMENT Provider, Generic External Data 12/01/2024 9:00 AM EDT Office Visit [address] [address] Keith Hernandez MD Alcohol use disorder, severe, dependence (CMS/HCC) (Primary Dx) 12/01/2024 Travel 11/30/2024 10:15 AM EDT Office Visit [address] [address] Mojgan Clarke MD Stress (Primary Dx) 11/30/2024 Patient Outreach [address] [address] Hernan Lazo Recovery Supports 11/30/[address] [address] Ana Luisa Bourne FNP 11/30/2024 Travel 11/24/2024 Orders Only [facility] [address] [place] [address] Laverne Penaloza MD Type 2 diabetes mellitus without complication, with long-term current use of insulin (CMS/HCC) (Primary Dx) 11/24/2024 Telephone [facility] [address] [place] [address] Angeline Georges, Santosh 11/22/[address] [address] Ana Luisa Bourne FNP 11/19/2024 9:30 AM EDT Office Visit [facility] [address] [place] [address] Ana Luisa Bourne FNP Encounter for routine [...] wheezing; Tobacco use 11/19/2024 Travel 11/18/2024 Telephone [facility] [address] [place] [address] Ana Luisa Bourne FNP chart prep 11/12/2024 1:00 PM EDT Office Visit [facility] [address] [place] [address] Juli Lutz, SAMUEL Type 2 diabetes mellitus without ophthalmic manifestations (CMS/HCC) (Primary Dx); Myopia of both eyes; Presbyopia; Dry eyes; Age-related nuclear cataract of both eyes 11/12/2024 Travel 11/12/2024 Patient Outreach [facility] [address] [place] [phone] Ana Luisa Bourne FNP Pre-visit Planning (Pre visit planning LVM ) 11/09/2024 Patient Outreach [address] [address] Hernan Lazo RC Recovery Supports 10/28/2024 Patient Outreach [address] [address] Codey Seth RC Recovery Supports 10/27/[address] [address] Ana Luisa Bourne FNP ER Follow-up 10/25/2024 Patient Outreach [address] [address] Liya Locke RC Recovery Supports 10/25/2024 Refill [facility] [address] [place] [address] Ana Luisa Bourne FNP Type 2 diabetes mellitus without complication, with long-term current use of insulin (CMS/HCC) 10/14/2024 Orders Only [facility] External Provider, [facility] 10/12/2024 Telephone [facility] [address] [place] [address] Ana Luisa Bourne FNP Results 10/11/2024 1:00 PM EDT Office Visit [address] [address] Lexi Mancera CNM Urinary symptom or sign (Primary Dx); Candidiasis of vulva and vagina; Encounter for pre-exposure prophylaxis for HIV; Asymptomatic microscopic hematuria 10/11/2024 Patient Outreach [address] [address] Liya Locke Recovery Supports 10/11/[address] [address] Guera Chavez RN Blood Sugar Problem; Nurse Triage 10/11/2024 Travel 10/08/2024 Patient Outreach [address] [address] Kain Gaitan Recovery Supports 10/08/2024 Telephone [facility] [address] [place] [address] Vera Zarate [place] 10/07/2024 Patient Outreach [address] [address] Codey Seth 10/06/2024 9:00 AM EDT Office Visit [address] [address] Keith Hernandez MD Alcohol use disorder, severe, dependence (CMS/HCC) (Primary Dx) 10/06/2024 Travel 10/04/2024 Refill [facility] [address] [place] [address] Ana Luisa Bourne FNP 10/04/2024 Patient Outreach [address] [address] Liya Locke Recovery Supports 09/27/2024 10:00 AM EDT Office Visit [address] [address] Lexi Mancera CNM Urinary symptom or sign (Primary Dx); Encounter for immunization; At high risk for exposure to HIV 09/27/2024 Patient Outreach [facility] [address] [place] [address] Burak Jerez RC Recovery Supports 09/27/2024 Travel 09/27/2024 Results Follow-Up [facility] [address] [place] [address] Lexi Mancera CNM Confirmatory Syphilis Profile 09/24/2024 Results Follow-Up [facility] [address] [place], [place] [phone] Ana Luisa Bourne FNP T-SPOT .TB 09/24/2024 Telephone [facility] [address] [place], [place] [phone] Lexi Mancera CNM CHART PREP from Last 3 Months Immunizations Immunization Administration Dates Next Due Hep A, Adult 05/17/2021,10/14/2018 Hep B, adult 05/17/2021,10/14/2018,06/18/2018 HepB-CpG 09/27/2024 INFLUENZA VACCINE QUADRIVALE NT RECOMBINANT PRESERVATIVE FREE RIV4 12/30/2019 Influenza Whole 11/20/2011,12/21/2010 Influenza injectable quadriv alent preservative free 12/23/2022,03/22/2022,11/30/2018 Influenza, IIV3, injectable 01/10/2021,1 04/13/2016,12/14/2015,03/29,11/24/2012,01/24/2010 Influenza, seasonal, injecta ble, preservative free 12/03/2024,11/17/2023,01/07/2018,05/19,11/25/2014 Pfizer Covid-19 Vaccine 12+ 11/27/2023, Pfizer Covid-19 [...] Oral Exam 12/27/2023 06/26/2023 Diabetes: Hemoglobin A1C 02/18/2025 025, 12/29/2023, 09/17/2023, Additional history exists Depression Monitoring 05/22/2025 11/22/2024, 025 Mammogram 07/21/2025 07/21/2024, 04/11, 05/06/2023, Additional history exists Alcohol/Substance Use Screening 08/05/2025 08/05/2024 Disability Screening 09/27/2025 09/27/2024 SDOH Screening 09/27/2025 09/27/2024 Diabetes: Foot Exam 10/27/2025 10/27/2024 Tobacco Screening 11/12/2025 11/12/2024 Lipid Panel 12/02/2025 12/02/2024, 07/09, 03/27/2022, Additional history exists Colonoscopy 01/15/2026 01/16/2024 Colorectal Cancer Screening 01/15/2026 Cervical Cancer Screening 06/05/2026 HPV/Cotest 06/05/2026 06/05/2021 Pap Smear 06/05/2026 Dental X-Ray: Full Mouth 06/26/2026 06/26/2023 Eye Exam 11/12/2026 11/12/2024, 07/2024, 11/12/2024, Additional history exists DTaP/Tdap/Td Vaccines (2 - Td or Tdap) 05/28/2028 05/28/2018, 07/06/2008 RSV Patients and Patients Aged 60 years or older (1 - 1-dose 75+ series) 07/06/2047 Hepatitis A Vaccines Aged Out 05/17/2021, 10/15/19 No longer eligible based on patient's age to complete this topic Pneumococcal Vaccine: 50+ Years Completed 04/18/2023, 05/28/2018, 11/29/2015, Additional history exists COVID-19 Vaccine Completed 11/27/2023, , 03/22/2022, Additional history exists HIV Screening Completed 09/20/2024, 06/07/2022 Hepatitis C Screening Completed 09/20/2024, 023 Hepatitis B Vaccines Completed 09/27/2024, 05/17/2021, 10/14/2018, Additional history exists Influenza Vaccine Completed 12/03/2024, , 12/23/2022, Additional history exists HIB Vaccines Aged Out [...] Procedure Name Priority Date/Time Associated Diagnosis Comments LIPASE Routine 12/02/2024 8:44 AM EDT C-REACTIVE PROTEIN Routine 12/02/2024 8: 44 AM EDT TSH W/REFLEX TO FT4 Routine 12/02/2024 8 :44 AM EDT Subclinical hypothyroidism Encounter for routine history and physical examination of adult COMPREHENSIVE METABOLIC PANEL Routine 12/02/2024 8:44 AM EDT Type 2 diabetes mellitus without complication, with long-term current use of insulin ([facility]) Primary hypertension LIPID PANEL, STANDARD Routine 12/02/2024 8:44 AM EDT Type 2 diabetes mellitus without complication, with long-term current use of insulin ([facility]) Primary hypertension POCT GLYCATED HEMOGLOBIN, TOTAL Routine 11/19/2024 10:20 AM EDT Type 2 diabetes mellitus without complication, with long-term current use of insulin ([facility]) POCT GLUCOSE Routine 11/19/2024 10:20 AM EDT Type 2 diabetes mellitus without complication, with long-term current use of insulin ([facility]) FL SMALL BOWEL FOLLOW THROUGH Routine 10/14/2024 11:20 AM EDT SARS COV2/INFLUENZA A/B AND RSV RNA QL NAAT Routine 10/14/2024 8:[address] ABDOMEN PELVIS W CONTRAST Routine 10/14/2024 7:58 AM EDT POCT GLUCOSE Routine 10/11/2024 2:42 PM EDT Type 2 diabetes mellitus without complication, with long-term current use of insulin ([facility]) POCT URINALYSIS DIPSTICK Routine 10/11/2024 1:01 PM EDT Urinary symptom or sign POCT URINALYSIS DIPSTICK Routine 09/27/2024 10:16 AM EDT Urinary symptom or sign HEPATITIS C AB W/REFL TO HCV RNA, QN, PCR Routine 09/20/2024 11:05 AM EDT Screening examination for venereal disease HIV 1/2 ANTIGEN/ANTIBODY, FOURTH GENERATION W/RFL Routine 09/20/2024 11:05 AM EDT Screening examination for venereal disease BI MAMMOGRAM SCREENING TOMOSYNTHESIS BILATERAL Routine 07/21/2024 12:45 PM EDT HM COLONOSCOPY Routine 01/16/2024 2:15 PM EST PANORAMIC RADIOGRAPHIC IMAGE Routine 06/26/2023 2:00 PM EDT Edentulism COMPREHENSIVE ORAL EVALUATION - NEW OR ESTABLISHED PATIENT Routine 06/26/2023 2:00 PM EDT Edentulism ZZZ HISTORICAL HPV E6/E7 RFLX MARIBELL 16 Routine 06/05/2021 3:35 PM EDT from Last 3 Months or Most Recently Relevant to Health Maintenance Results * TSH W/Reflex to FT4 (12/02/2024 8:44 AM EDT) TSH reflex Free T4 1.28 0.32 - 4.0 uIU/mL [facility] Blood Venous blood specimen / Unknown 12/02/2024 8:44 AM EDT 12/02/2024 10:57 AM EDT us Ana Luisa Bourne PUBLICATIONS DESIGNER LAB BLOOD ORDERABLES Final Res ult [facility] [address] [place] [phone] * (ABNORMAL) C-reactive Protein (12/02/2024 8:44 AM EDT) C Reactive Protein 1.40(H) < or = 0.50 mg/dL [facility] 12/02/2024 8:44 AM EDT 12/02/2024 10:57 AM EDT us Generic External Data Provider LAB BLOOD ORDERAB LES Final Result Performing Organization Address City/[facility]/ZIP Co de Phone Number [facility] [address] [place] [address] [phone] * Lipase (12/02/2024 8:44 AM EDT) Lipase 21 8 - 78 U/L [facility] 12/02/2024 8:44 AM EDT 12/02/2024 10:57 AM EDT Generic External Data Provider LAB BLOOD ORDERAB LES Final Result Performing Organization Address [facility] Co de Phone Number [facility] [address] [place] [address] [phone] * (ABNORMAL) Lipid Panel, Standard (12/02/2024 8:44 AM EDT) Triglycerides 90 <150 mg/dL [facility] Comment:Desirable Triglyceri de: less than 150 mg/dLBorderline High Triglyceride 150-199 mg/dLHigh Triglyceride: 200-499 mg/dLVery High Triglyceride: greater than or equal to 5OO mg/dL Cholesterol 152 <200 mg/dL [facility] Comment:Desirable Cholestero l: less than 200 mg/dLBorderline High Cholesterol: 200-239 mg/dLHigh Cholesterol: greater than 239 mg/dL LDL Cholesterol Calculated 96 <100 mg/dL [facility] Comment:Desirable LDL: less than 100 mg/dLNear Optimal/Above Optimal LDL: 110- 129 mg/dLBorderline High LDL: 130-159 mg/dLHigh LDL: 160-189 mg/dLVery High LDL: greater than or equal to 190 mg/dL HDL Cholesterol 38(L) >40 mg/dL [facility] Comment:Desirable HDL: great er than 40 mg/dL Note: This HDL assay may give artificially low results in patients with liver disease. Blood Venous blood specimen / Unknown 12/02/2024 8:44 AM EDT 12/02/2024 10:57 AM EDT Ana Luisa Bourne PUBLICATIONS DESIGNER LAB BLOOD ORDERABLES Final Res ult [facility] [address] [place] [phone] [phone] * (ABNORMAL) Comprehensive Metabolic Panel (12/02/2024 8:44 AM EDT) Sodium 141 135 - 145 mmol/L [facility] Potassium 3.7 3.3 - 5.1 mmol/L [facility] Chloride 107 96 - 108 mmol/L [facility] Carbon Dioxide 26 22 - 29 mmol/L [facility] Anion Gap 12 12 - 20 [facility] Urea Nitrogen (BUN) 10 9 - 16 mg/dL [facility] Creatinine, Serum 0.73 0.5 - 1.4 mg/dL [facility] Estimated Glomerular Filt Rate >60 [facility] Comment:Chronic Kidney Disea se: Estimated GFR < 60 mL/min/1.16e1Vathfu Kidney Disease: Estimated GFR < 15 mL/min/1.73m2 Glucose 220(H) 60 - 115 mg/dL [facility] Calcium 8.8 8.4 - 10.2 mg/dL [facility] Bilirubin, Total 0.4 0.0 - 1.0 mg/dL [facility] Aspartate Amino Transferase 16 5 - 31 U/L [facility] Alanine Aminotransferase 11 0 - 31 U/L [facility] Total Protein 6.9 6.5 - 8.0 g/dL [facility] Albumin Level 3.9 3.5 - 5.0 g/dL [facility] Alkaline Phosphatase 84 39 - 117 U/L [facility] Blood Venous blood specimen / Unknown 12/02/2024 8:44 AM EDT 12/02/2024 10:57 AM EDT Ana Luisa Bourne [facility] LAB BLOOD ORDERABLES Final Res ult [facility] [address] [place] [phone] * (ABNORMAL) POCT Hgb A1c (11/19/2024 10:20 AM EDT) Hemoglobin A1C 13.7(A) 4.0 - 5.7 % QC Media Lot # [id number] Lot# Expiration Date Blood 11/19/2024 10:2 0 AM EDT Ana Luisa Bourne [facility] POINT OF CARE TEST ENTER/EDIT ORDERABLES Final Result * (ABNORMAL) POCT Glucose (11/19/2024 10:20 AM EDT) Only the most recent of2 resultswithin the time period is included. Glucose Blood, POC 286(A) 60 - 200 mg/dL QC Media Lot # [id number] Lot# Expiration Date Blood Capillary blood specimen / Unknown 11/19/2024 10:20 AM EDT Ana Luisa Bourne [facility] POINT OF CARE TEST ENTER/EDIT ORDERABLES Final Result * FL SMALL BOWEL FOLLOW THROUGH (10/14/2024 11:20 AM EDT) Anatomical Region Laterality Modality Radiographic Kristi ging 10/14/2024 11:2 0 AM EDT Narrative 10/14/2024 4:19 PM EDT [address] [address] Fluoroscopy Report Signed Patient: Hodan Lopez MR#: [id number] : 1970 Acct:[id number] Age/Sex: 54 / F ADM Date: 10/14/24 Loc: [facility]: Carmen Glover PA-C Ordering Physician: Carmen Glover PA-C Date of Service: 10/14/24 Procedure(s): FL small bowel follow through Accession Number(s): [id number] cc: [facility]; Carmen Glover PA-C EXAMINATION: FL SMALL BOWEL SERIES CLINICAL INFORMATION: SBO with concern for internal hernia COMPARISON: None. TECHNIQUE: Following a forms builder image of the abdomen, contrast was administered orally, and interval abdominal radiographs were performed to assess for contrast progression through the small bowel. Following contrast transit through the small bowel and into the colon, the patient was placed on the fluoroscopy table, and multiple spot images were obtained. FINDINGS: Second Vp Hr Assessment image of the abdomen demonstrates a normal [...] 10/14/24 1616 DD/ 1120 TD/TT: 10/14/24 1345 Coiler: MSM Procedure Note Donotuseinterpreter, Image - 10/14/[address] [address] Fluoroscopy Report Signed Patient: Lianna Lopez#: [id number] : 1970Acct:[id number] Age/Sex: 54 / FADM Date: 10/14/24 Loc: [facility]: Carmen Glover PA-C Ordering Physician: Carmen Glover PA-C Date of Service: 10/14/24 Procedure(s): FL small bowel follow through Accession Number(s): [id number] cc: [facility]; Carmen Glover PA-C EXAMINATION: FL SMALL BOWEL SERIES CLINICAL INFORMATION: SBO with concern for internal hernia COMPARISON: None. TECHNIQUE: Following a forms builder image of the abdomen, contrast was administered orally, and interval abdominal radiographs were performed to assess for contrast progression through the small bowel. Following contrast transit through the small bowel and into the colon, the patient was placed on the fluoroscopy table, and multiple spot images were obtained. FINDINGS: Second Vp Hr Assessment image of the abdomen demonstrates a normal [...] 10/14/24 1616 DD/ 1120 TD/TT: 10/14/24 1345 Coiler: [facility] External Provider IMG FLU OROSCOPY PROCEDURES Final Result * SARS-CoV-2 RNA, Influenza A/B, and RSV RNA, Ql NAAT (10/14/2024 8:34 AM EDT) Influenza A PCR NEGATIVE Negative [facility] Influenza B PCR NEGATIVE Negative [facility] Resp Syncy Virus RNA Qual PCR NEGATIVE Negative [facility] SARS COV2 PCR NEGATIVE Negative [facility] Comment:All test results mus t be [...] use by authorized laboratories.Testing performed on the [employer] GeneXpert utilizingreal-time RT-PCR.All SARS CoV2 and positive influenza A/B results arereported to [facility]. 10/14/2024 8:34 AM EDT 10/14/2024 8:41 AM EDT us Generic External Data Provider LAB MICROBIOLOGY - GENERAL ORDERABLES Final Result Performing Organization Address City/State/[facility] Co de Phone Number [facility] [address] [place] [phone] * CT Abdomen Pelvis w/ Contrast (10/14/2024 7:58 AM EDT) Anatomical Region Laterality Modality Body, Pelvis, Abdomen Computed T omography 10/14/2024 7:58 AM EDT Narrative 10/14/2024 9:35 AM EDT [address] [address] [address] Scan Report Signed Patient: Hodan Lopez MR#: [id number] : 1970 Acct:[id number] Age/Sex: 54 / F ADM Date: 10/14/24 Loc: .ED Attending Dr: Ordering Physician: Sasha Almanza Date of Service: 10/14/24 Procedure(s): CT abdomen pelvis w IV con Accession Number(s): [id number] cc: Sasha Almanza; [facility] Report Number: [id number]: Total DLP = 503.00 mGy-cm EXAMINATION: CT [...] Sam Tavarez MD 10/14/2024 09:32 AM EDT RP Dictated By: Sam Anne MD Signed By: <Electronically signed by Sam Bal MD in OV> 10/14/24 0932 DD/ 0758 TD/TT: 10/14/24 0908 Coiler: Procedure Note Donotuseinterpreter, Image - 10/14/[address] [address] [address] Scan Report Signed Patient: Lianna Lopez#: [id number] : 1970Acct:[id number] Age/Sex: 54 / FADM Date: 10/14/24 Loc: HO.ED Attending Dr: Ordering Physician: Sasha Almanza Date of Service: 10/14/24 Procedure(s): CT abdomen pelvis w IV con Accession Number(s): [id number] cc: Sasha Almanza; [facility] Report Number: [id number]: Total DLP = 503.00 mGy-cm EXAMINATION: CT [...] 10/14/24 0932 DD/ 0758 TD/TT: 10/14/24 0908 Coiler: [facility] External Provider IMG CT PROCEDURES Final Result * (ABNORMAL) POCT urinalysis dipstick manually resulted (10/11/2024 1:01 PM EDT) Only the most recent of2 resultswithin the time period is included. Color, [...] Media Lot # [id number] Lot# Expiration Date [id number] Urine 10/11/2024 1:01 PM EDT [facility] POINT OF CARE TEST ENTER/ EDIT ORDERABLES Final Result * Hepatitis C Antibody with Reflex to HCV, RNA, Quantitative, Real-Time PCR (09/20/2024 11:05 AM EDT) Pathologist [facility] Hepatitis C Antibody Nonreactive Nonreactive [facility] Comment:Antibodies to HCV no t detected; does not exclude early acuteHCV infection. Blood Venous blood specimen / Unknown 09/20/2024 11:05 AM EDT 09/20/2024 1:43 PM EDT [facility] LAB BLOOD ORDERABLES Elaine l Result [facility] [address] [place] [phone] * HIV-1/2 Antigen and Antibodies, Fourth Generation, with Reflexes (09/20/2024 11:05 AM EDT) [facility] HIV AB/AG Nonreactive Nonreactive [facility] Comment:HIV-1 p24 Ag and/or HIV-1/HIV-2 Ab not detected.A test result that is nonreactive does not exclude thepossibility of exposure to or infection with HIV-1 and/orHIV-2. Nonreactive results in this assay for individualswith prior exposure to HIV-1 and/or HIV-2 may be due toantigen and antibody levels that are below the limit ofdetection of this assay.[employer] HIV Ag/Ab Combo assay result andsupplemental assay results should be interpreted inconjunction with the patient's clinical presentation,history and other laboratory results. If the results areinconsistent with clinical evidence, additional testing issuggested to confirm the result. Blood Venous blood specimen / Unknown 09/20/2024 11:05 AM EDT 09/20/2024 1:43 PM EDT us Lexi Mancera CNM LAB BLOOD ORDERABLES Elaine tiwari Result [facility] [address] [place] [address] [phone] * BI Mammogram Screening Tomosynthesis Bilateral (07/21/2024 12:45 PM EDT) Anatomical Region Laterality Modality Breast Bilateral Mammography 07/21/2024 12:4 5 PM EDT Narrative 07/30/2024 2:26 PM EDT [facility] [address] [place] [address] Mammography Report Signed Patient: Hodan Lopez MR#: [id number] : 1970 Acct:[id number] Age/Sex: 54 / F ADM Date: 07/21/24 Loc: HO.MAMMO Attending Dr: Codie Quintero MD Ordering Physician: Codie Quintero MD Results: 2Benig n Findings Date of Service: 07/21/24 Follow Up: 1 Year From [facility] Mammogram Procedure(s): MM tomosynthesis screening BI Accession Number(s): [id number] cc: Codie Quintero MD; Ana Luisa Bourne PUBLICATIONS DESIGNER EXAMINATION: MM SCREENING DIGITAL BREAST TOMOSYNTHESIS, BILATERAL [...] Ainsley Yee DO 07/30/2024 02:24 PM EDT RP Dictated By: Ainsley Yee DO Signed By: <Electronically signed by Ainsley Yee DO in OV> 07/30/24 1424 DD/ 1245 TD/TT: 07/21/24 1254 Coiler: Procedure Note Donotuseinterpreter, Image - 07/30/2024 [facility] [address] [place] [address] Mammography Report Signed Patient: Lianna Lopez#: [id number] : 1970Acct:[id number] Age/Sex: 54 / FADM Date: 07/21/24 Loc: HO.MAMMO Attending Dr: Codie Quintero MD Ordering Physician: Codie Quintero MDResults: 2Benig n Findings Date of Service: 07/21/24Follow Up: 1 Year From [facility] Mammogram Procedure(s): MM tomosynthesis screening BI Accession Number(s): [id number] cc: Codie Quintero MD; Ana Lusia Bourne PUBLICATIONS DESIGNER EXAMINATION: MM SCREENING DIGITAL BREAST TOMOSYNTHESIS, BILATERAL [...] Ainsley Yee DO 07/30/2024 02:24 PM EDT RP Dictated By: Ainsley Yee DO Signed By: <Electronically signed by Ainsley Yee DO in OV> 07/30/24 1424 DD/ 1245 TD/TT: 07/21/24 1254 Coiler: [facility] External Provider IMG BI PROCEDURES Final Result * Hm Colonoscopy (01/16/2024 2:15 PM EST) Historical Provider HEALTH MAINTENANCE Final Result * HPV E6/E7 RFLX MARIBELL 16 18/45 (06/05/2021 3:35 PM EDT) Pathologist [facility] HPV mRNA E6/E7 rflx Not Detected Not Detected [facility] Comment: Methodology: Marketing Systems Analyst-Mediated Amplification This assay detects E6/E7 viral messenger RNA (mRNA) from 14 high-risk HPV types (16,18,31,33,35,39,45,51,52,56,58,59,66,68). The analytical performance characteristics of this assay have been determined by [employer]. The modifications have not been cleared or approved by the FDA. This assay has been validated pursuant to the CLIA regulations and is used for clinical purposes. For additional information, please refer to http://education.[employer]/faq/LQQ201d0 (This link if provided for information/ educational purposes only.) THIS TEST WAS PERFORMED AT: [facility] [address] [place] [address] [address] FLOOR,[place] [address] LEE VILLALPANDO MD 06/05/2021 3:35 PM EDT Estela Hung HISTORICAL/NON ORDERABLE LABS Fi nal Result [facility] [address] from Last 3 Months or Most Recently Relevant to Health Maintenance Insurance [place] [facility] MEDICAID STAND ADULT * Guarantor: Hodan Lopez Account Type Relation to Patient Date of Phone Billing Address Personal/Family Self [address] Care Teams Drug Safety Coordinator Relationship Specialty Start Date End Date Ana Luisa Bourne FNP [address] [place], [place] PCP - General Family Medicine 11/01/21 Priscilla Cody [address] [place] [address] Gastroenterology 11/21/24 Codie Quintero MD [address] [place] [address] Hematology and Oncology 11/21/24 Teodoro Palomino DPM [address] [address] Podiatry 11/21/24 Manoj Locke MD [address] [place] [address] General Surgery 11/21/24 [facility] 02/17/24 [facility] Hearing Aid Assistant Mental Health 11/21/24 YOAN Cool (VNA) Home Monitoring Clinician 11/21/24
--- OUTSIDE RECORDS SUMMARY | 2024-12-23 09:05 | XMS_ITS | Encounter Summary ---
Author Organization [employer] Address [address] [facility] 7t [place] [address] Care Team Providers Care Supervisor Body Assembly Name Role Phone Ana Luisa Bourne Primary Care Provider Geeta Zeng PharmD Unavailable Priscilla Cody Unavailable Codie Quintero MD Unavailable [phone] Teodoro Palomino DPM Unavailable [phone] Manoj Locke MD Unavailable Reason for Visit * Reason Onset Date Comments Order(s) 10/20/2023 Encounter Details Date Type Department Care Team (Late st Contact Info) Description 10/20/2023 Telephone [facility] 230 [place] [address] Ana Luisa Bourne FNP [address] [place], [place] [phone] Order(s) Social History Tobacco Use Types Packs/Day [...] 4:02 PM EDT Tc from Sun with [facility] stating since pt is a smoker she is requesting her to have a CT scan before upcoming PE. If any questions you can contact Sun at [phone]. documented in this encounter Plan of Treatment [...] as of this encounter Care Teams Supervisor Body Assembly Relationship Specialty Start Date End Date Ana Luisa Bourne FNP 230 [place] [address] PCP - General Family Medicine 11/01/21 Geeta Zeng PharmD [address] [place] [address] Pharmacist Internal Medicine 07/07/23 11/20/24 Priscilla Cody [address] [place] [address] Gastroenterology 11/21/24 Codie Quintero MD [address] [place] [address] Hematology and Oncology 11/21/24 Teodoro Palomino DPM [address] [place] [address] Podiatry 11/21/24 Manoj Locke MD [address] [address] General Surgery 11/21/24 [facility] 02/17/24 [facility] Search Consultant Mental Health 11/21/24 YOAN Cool (VNA) Home Monitoring Clinician 11/21/24 documented as of this encounter
--- OUTSIDE RECORDS SUMMARY | 2024-12-23 09:06 | XMS_ITS | Encounter Summary ---
Author Organization [facility] Address [address] [facility] [address] [place] [address] Phone Care Team Providers Care Aging Box Hand Name Role Phone Sonali Harper MD Primary Care Provider [phone] Encounter Details Date Type Department Care Team (Late st Contact Info) Description 07/11/2020 Ancillary Orders [facility],Outside Imaging 30 [place] [address] System, Provider Not In, [place] [address] Social History Tobacco Use Types Packs/Day Years [...] on filedocumented in this encounter Care Teams Aging Box Hand Relationship Specialty Start Date End Date Sonali Harper MD [address] [place] [address] [email or web address] PCP - General Family Medicine 07/07/20 documented as of this encounter Additional Source Comments The information contained in this document represents components of the legal health record. It is not the complete legal health record.[facility]
--- OUTSIDE RECORDS SUMMARY | 2024-12-23 09:06 | XMS_ITS | Clinical Summary ---
Author Organization 175 [facility] Address 175 [place] [address] Phone Care Team Providers Care Automotive Parts Interpreter Name Role Phone Ana Luisa Bourne RN [...] PM EDT Office Visit Orthopedic Surgery - [address] [address] Teodoro Palomino, DPM Dermatophytosis of nail (Primary Dx); Tinea pedis of both feet; Acquired hammer toe of right foot; Hammer toe of left foot; Type II diabetes mellitus with peripheral circulatory disorder ([facility] V24, CMS/[facility] V28); Diabetic mononeuropathy simplex (CMS/HCC V24, CMS/[facility] V28); Corns and callosities; Pain [...] PM EST Office Visit Orthopedic Surgery - [place] [address] [address] Teodoro Palomino, ROXANN [address] [address] Health Maintenance Due Date Last Done Comments Breast Cancer Screening 1970 Colorectal Cancer Screening: Colonoscopy 1970 Diabetes: Annual GFR (Glomerular Filtration Rate) 1972 Diabetes: Annual Foot Exam 1982 Diabetes: Annual Retina Eye Exam 1982 Zoster Vaccines (1 of 2) 07/06/1991 Cervical Cancer Screening: Pap Smear 1993 Social Influencers of Health Screening 02/10/2022 RSV Immunization Adult Patients (1 - Risk 50-74 years 1-dose series) 2022 Depression Screening 03/10/2024 Diabetes: Annual Urine Albumin-Creatinine [...] 07/30/2023 Hepatitis A Vaccines Completed 05/17/2021, 10/15/19 19 [...] topic Insurance MEDICAID - [place] Care Teams Automotive Parts Interpreter Relationship Specialty Start Date End Date Ana Luisa Bourne RN [address] [address] PCP - General 04/23/23
--- OUTSIDE RECORDS SUMMARY | 2024-12-23 09:06 | XMS_ITS | Encounter Summary ---
Author Organization [employer] Address [address] [facility] [address] 7t [place] [address] Care Team Providers Care Loft Patternmaker Name Role Phone Ana Luisa Bourne Primary Care Provider Geeta Zeng PharmD Unavailable Priscilla Cody Unavailable Codie Quintero MD Unavailable [phone] Teodoro Palomino DPM Unavailable Manoj Locke MD Unavailable [phone] Reason for Visit * Reason Comments Med Refill Encounter Details Date Type Department Care Team (Late st Contact Info) Description 07/08/2024 Refill [facility] 230 [place] [address] Ana Luisa Bourne FNP 505 [place], [place] [phone] Other hyperlipidemia Social History Tobacco Use Types [...] documented as of this encounter Care Teams Loft Patternmaker Relationship Specialty Start Date End Date Ana Luisa Bourne FNP [address] [place] [address] PCP - General Family Medicine 11/01/21 Geeta Zeng, Santosh 230 [place] [address] Pharmacist Internal Medicine 07/07/23 11/20/24 Priscilla Cody [address] [place] [address] Gastroenterology 11/21/24 Codie Quintero MD [address] [place] [address] Hematology and Oncology 11/21/24 Teodoro Palomino DPM [address] [place] [address] Podiatry 11/21/24 Manoj Locke MD [address] [place] [address] General Surgery 11/21/24 [facility] 02/17/24 [facility] Motor Polarizer Mental Health 11/21/24 YOAN Cool (VNA) Home Monitoring Clinician 11/21/24 documented as of this encounter
--- OUTSIDE RECORDS SUMMARY | 2024-12-23 09:06 | XMS_ITS | Encounter Summary ---
Author Organization [facility] Address 399 [facility] [address] [place] [address] Phone Care Team Providers Care Payroll Officer Name Role Phone Sonali Harper MD Primary Care Provider [phone] Encounter Details Date Type Department Care Team (Late st Contact Info) Description 07/11/2020 Ancillary Orders [facility],Outside Imaging 30 [place] [address] System, Provider [place] In, [place] [address] Social History Tobacco Use Types Packs/Day Years [...] on filedocumented in this encounter Care Teams Payroll Officer Relationship Specialty Start Date End Date Sonali Harper MD 230 [facility] 1 [place] [address] [email or web address] PCP - General Family Medicine 07/07/20 documented as of this encounter Additional Source Comments The information contained in this document represents components of the legal health record. It is not the complete legal health record.[facility]
--- OUTSIDE RECORDS SUMMARY | 2024-12-23 09:06 | XMS_ITS | Encounter Summary ---
Author Organization [facility] Address 399 [facility] [address] [place] [address] Phone Care Team Providers Care Toe Laster Name Role Phone Sonali Harper MD Primary Care Provider [phone] Encounter Details Date Type Department Care Team (Late st Contact Info) Description 07/11/2020 Ancillary Orders [facility],Outside Imaging 30 [place] [address] System, Provider [place] In, [place] [address] Social History Tobacco Use Types Packs/Day Years [...] on filedocumented in this encounter Care Teams Toe Laster Relationship Specialty Start Date End Date Sonali Harper MD 230 [facility] 1 [place] [address] [email or web address] PCP - General Family Medicine 07/07/20 documented as of this encounter Additional Source Comments The information contained in this document represents components of the legal health record. It is not the complete legal health record.[facility]
--- OUTSIDE RECORDS SUMMARY | 2024-12-23 09:06 | XMS_ITS | Encounter Summary ---
Author Organization [facility] Address 399 [facility] [address] [place] [address] Phone Care Team Providers Care Dinkey Engine Firer/Fireman Name Role Phone Sonali Harper MD Primary Care Provider [phone] Encounter Details Date Type Department Care Team (Late st Contact Info) Description 07/11/2020 Ancillary Orders [facility],Outside Imaging 30 [place] [address] System, Provider Not In, [place] [address] Social History Tobacco Use Types Packs/Day Years [...] on filedocumented in this encounter Care Teams Dinkey Engine Firer/Fireman Relationship Specialty Start Date End Date Sonali Harper MD [address] [place] [address] [email or web address] PCP - General Family Medicine 07/07/20 documented as of this encounter Additional Source Comments The information contained in this document represents components of the legal health record. It is not the complete legal health record.[facility]
--- OUTSIDE RECORDS SUMMARY | 2024-12-23 09:06 | XMS_ITS | Encounter Summary ---
Author Organization [employer] Address 75 [facility] 7t [place] [address] Care Team Providers Care China Decorator Name Role Phone Ana Luisa Bourne FOUR H CLUB AGENT Primary Care Provider Geeta Zeng PharmD Unavailable [phone] Priscilla Cody Unavailable Codie Quintero MD Unavailable [phone] Teodoro Palomino DPM Unavailable Manoj Locke MD Unavailable Reason for Visit * Reason Comments Med Refill Encounter Details Date Type Department Care Team (Late st Contact Info) Description 07/07/2024 Refill [facility] 505 [place], [place] [phone] Cleo Malone MD 505 [place], [place] [phone] Primary hypertension Social History Tobacco Use Types [...] documented as of this encounter Care Teams China Decorator Relationship Specialty Start Date End Date Ana Luisa Bourne FNP [address] [place] [address] PCP - General Family Medicine 11/01/21 Geeta Zeng, Santosh 230 [place] [address] Pharmacist Internal Medicine 07/07/23 11/20/24 Priscilla Cody [address] [place] [address] Gastroenterology 11/21/24 Codie Quintero MD [address] [place] [address] Hematology and Oncology 11/21/24 Teodoro Palomino DPM [address] [place] [address] Podiatry 11/21/24 Manoj Locke MD [address] [place] [address] General Surgery 11/21/24 [facility] Health 02/17/24 [facility] Professional Bass Fisher Mental Health 11/21/24 YOAN Cool (VNA) Home Monitoring Clinician 11/21/24 documented as of this encounter
--- OUTSIDE RECORDS SUMMARY | 2024-12-23 09:06 | XMS_ITS | Encounter Summary ---
Author Organization [facility] Address 399 [facility] [address] [place] [address] Phone Care Team Providers Care Correctional Supervising Cook Name Role Phone Sonali Harper MD Primary Care Provider [phone] Encounter Details Date Type Department Care Team (Late st Contact Info) Description 07/11/2020 Ancillary Orders [facility],Outside Imaging 30 [place] [address] System, Provider [place] In, [place] [address] Social History Tobacco Use Types Packs/Day Years [...] on filedocumented in this encounter Care Teams Correctional Supervising Cook Relationship Specialty Start Date End Date Sonali Harper MD 230 [facility] 1 [place] [address] [email or web address] PCP - General Family Medicine 07/07/20 documented as of this encounter Additional Source Comments The information contained in this document represents components of the legal health record. It is not the complete legal health record.[facility]
--- OUTSIDE RECORDS SUMMARY | 2024-12-23 09:06 | XMS_ITS | Encounter Summary ---
Author Organization [facility] Address 399 [facility] [address] [place] [address] Phone Care Team Providers Care Reservoir Engineering Advisor Name Role Phone Sonali Harper MD Primary Care Provider [phone] Encounter Details Date Type Department Care Team (Late st Contact Info) Description 07/11/2020 Ancillary Orders [facility],Outside Imaging 30 [place] [address] System, Provider [place] In, [place] [address] Social History Tobacco Use Types Packs/Day Years [...] on filedocumented in this encounter Care Teams Reservoir Engineering Advisor Relationship Specialty Start Date End Date Sonali Harper MD 230 [facility] 1 [place] [address] [email or web address] PCP - General Family Medicine 07/07/20 documented as of this encounter Additional Source Comments The information contained in this document represents components of the legal health record. It is not the complete legal health record.[facility]
[2024-12-23 12:08] LABS: Blood Urea Nitrogen 7 mg/dL (9-16); Estimated Glomerular Filt Rate > 60
== END 2024-12-23 08:36 | disposition home or self-care (01) ==
LOC: HO.HHCL 08:35
PROVIDERS: PCP Registered Nurse; Visit Provider Nurse Practitioner Family
DX: R10.11 Right upper quadrant pain (principal)
CPT/HCPCS: 36415; 82565; 84520

== ENCOUNTER 2024-12-25 11:54 | Outpatient (REF) | payer MEDICAID, SELFPAY ==
[2025-01-03 18:32] LABS: Calprotectin, Fecal 44 mcg/g
== END 2024-12-25 11:55 | disposition home or self-care (01) ==
LOC: HO.LNP 11:54
PROVIDERS: Visit Provider Nurse Practitioner Family
DX: R15.9 Full incontinence of feces (principal)
CPT/HCPCS: 83993

== ENCOUNTER 2024-12-29 13:52 | Outpatient (AMB) | payer MEDICAID, SELFPAY ==
--- NOTE | 2024-12-29 13:54 | MHC.OFFVIS ---
Vital Signs 12/29/24 13:55 Height 5 ft 4 in Weight 137 lb 8 oz BMI 23.6 Intake Visit Reasons: hernia abd wall Intake Note: This patient was referred by Ana Luisa Bourne for an assessment for abdominal wall hernia. Pt c/o; navel, reports pain/discomfort, reports Hx constipation. 10/14/2024: Abd/pelvis CT 10/14/2024: Upper GI/small Bowel X-ray Marking Machine Operator Required: Yes Marking Machine Operator Language: Infrastructure Tech Services: Marking Machine Operator Offered & Declined Accompanied by: Alysha [facility] case making machine operator Allergies No Known Allergies (No Known Allergies*) Allergy (Verified 12/29/24 14:01) HPI HPI hernia abd wall: Details: [age] year old female here because of her incisional hernias. She had undergone right colon resection for a serrated polyp about 3 years ago. She has noted a lump on the area of the incision at the level of the umbilicus for several months now. She says that this causes discomfort. This is reducible She had been admitted to the hospital last October, for question of small-bowel obstruction. She had a small bowel series that time which showed good passage of contrast through out the GI tract . She is independent but is being regularly helped by a [facility] case making machine operator because of her mental health issues. [facility] Medical History (Updated 12/29/24 @ 14:12 by Manoj Locke MD) Incisional hernia History of syphilis History of syphilis History of ductal carcinoma in situ (DCIS) of breast Anxiety Serrated polyp of colon Cecal polyp Nipple discharge Elevated cholesterol Family history of breast cancer Lobular carcinoma in situ (LCIS) of left breast Ductal carcinoma in situ (DCIS) of breast Hypertension Diabetes mellitus Depression Breast calcification, left Surgical History History of laparoscopic cholecystectomy H/O colonoscopy H/O breast surgery History of tubal ligation Family History Sister History of breast cancer Social History Household Members: Children Household Members Other:: son 18 yrs old Housing: Apartment Are you a primary rn wound care to a significant other at home: No Do you presently have visiting nurse or other home services: Yes Alcohol intake: never Patient Tobacco Use Status: Current everyday Tobacco user Tobacco use type: Cigarette Cigarette Packs Per Day: 2 Cigarettes Per Day: 40.0 Years Smoked: 30 e-Cigarette/Vaping Use: Never Used Second Hand Smoke Exposure: No Substance Use Type: Crack/Cocaine service: No Current occupational status: unemployed Sexual orientation: Straight/Heterosexual Gender identity: Female Female Reproductive History Menstrual Age of Menarche: 14 Review of Systems Const Denies chills and Denies fever(s) Card Denies chest pain, Denies dyspnea and Denies dyspnea on exertion Resp Denies cough, Denies dyspnea and Denies dyspnea on exertion GI Denies hematochezia and Denies change in bowel habits Denies hematuria Musc Denies back pain and Denies limited range of motion Neuro Denies focal weakness and Denies convulsions Psych Denies depression and Denies mood swings Physical Exam Vital Signs: BMI result Body Mass Index 23.6 Const General: comfortable and no acute distress Orientation/consciousness: patient oriented x3 Neck Neck: Yes no lymphadenopathy Resp Auscultation: clear to auscultation bilaterally Cardio Rhythm: regular rhythm GI Other: Palpable masses x2 on the midline incision at the area of the umbilicus with Valsalva, consistent with reducible hernias, small, each about 1.5 cm in size Palpation (GI): Soft to palpation, nontender and no guarding Neuro General: patient oriented x3 Assessment & Plan Assessment & Plan (1) Incisional hernia: Code(s): K43.2 - Incisional hernia without obstruction or gangrene Category: Medical Plan: Review of her CAT scan shows that she has to fat containing small incisional hernias on the previous line incision from her right colectomy in the past. She wants to proceed with repair I explained the technique of repair of these 2 hernias with possible mesh placement. I reviewed the risks including but not limited to bleeding, infections, as well as the benefits and alternatives. I explained to her what to expect postoperatively She understands and wants to proceed. Her [facility] case making machine operator was with her during the visit. Coding Level of Care Code Est Pt Level 3 (33361) Diagnoses Incisional hernia K43.2
[2024-12-29 13:55] VITALS: BMI 23.6
--- OUTSIDE RECORDS SUMMARY | 2024-12-29 20:00 | XMS_ITS | Encounter Summary ---
Author Organization [employer] Address [address] [facility] [facility] [address] [place] [address] Care Team Providers Care Donor Relations Manager Name Role Phone Ana Luisa Bourne Primary Care Provider [phone] Geeta Zeng PharmD Unavailable Priscilla Cody Unavailable Codie Quintero MD Unavailable [phone] Teodoro Palomino DPSolis Unavailable Manoj Locke MD Unavailable Encounter Details Date Type Department Care Team (Late st Contact Info) Description 09/15/2023 Telephone [facility] MEDICINE [address] [place] [address] Ana Luisa Bourne FNP [address] [place], [place] [phone] Social History Tobacco Use Types Packs/Day Years [...] documented as of this encounter Care Teams Donor Relations Manager Relationship Specialty Start Date End Date Ana Luisa Bourne FNP [address] [place] [id number] PCP - General Family Medicine 11/01/21 Geeta Zeng, PharmD 230 [place] [address] Pharmacist Internal Medicine 07/07/23 11/20/24 Priscilla Cody [address] [place] [address] Gastroenterology 11/21/24 Codie Quintero MD [address] [place] [address] Hematology and Oncology 11/21/24 Teodoro Palomino DPM [address] [place] [address] Podiatry 11/21/24 Manoj Locke MD [address] [place] [address] General Surgery 11/21/24 [facility] 02/17/24 [facility] Practical Nurse Mental Health 11/21/24 YOAN Cool ([facility]) Home Monitoring Clinician 11/21/24 documented as of this encounter
--- OUTSIDE RECORDS SUMMARY | 2024-12-29 20:00 | XMS_ITS | Encounter Summary ---
Author Organization [employer] Address [address] [facility] [address] 7t [place] [address] Care Team Providers Care Movie Writer Name Role Phone Ana Luisa Bourne Primary Care Provider Geeta Zeng PharmD Unavailable Priscilla Cody Unavailable Codie Quintero MD Unavailable [phone] Tedooro Palomino DPM Unavailable Manoj Locke MD Unavailable Encounter Details Date Type Department Care Team (Late st Contact Info) Description 06/19/[address] [facility] MEDICINE 230 [place] [address] Ana Luisa Bourne FNP [address] [place], [place] [phone] Social History Tobacco Use Types Packs/Day Years [...] documented as of this encounter Care Teams Movie Writer Relationship Specialty Start Date End Date Ana Luisa Bourne FNP 230 [place] [address] PCP - General Family Medicine 11/01/21 Geeta Zeng, DaphneD [address] [place] [address] Pharmacist Internal Medicine 07/07/23 11/20/24 Priscilla Cody [address] [place] [address] Gastroenterology 11/21/24 Codie Quintero MD [address] [place] [address] Hematology and Oncology 11/21/24 Teodoro Palomino DPM [address] [place] [address] Podiatry 11/21/24 Manoj Locke MD [address] [place] [address] General Surgery 11/21/24 [facility] 02/17/24 [facility] Home Advisor Mental Health 11/21/24 YOAN Cool ([facility]) Home Monitoring Clinician 11/21/24 documented as of this encounter
--- OUTSIDE RECORDS SUMMARY | 2024-12-29 20:00 | XMS_ITS | Encounter Summary ---
Author Organization [employer] Address [address] [facility] 7t [place] [address] Care Team Providers Care Dynamics Ax Consultant Name Role Phone Ana Luisa Bourne Primary Care Provider [phone] Geeta Zeng PharmD Unavailable [phone] Priscilla Cody Unavailable Codie Quintero MD Unavailable [phone] Teodoro Palomino DPM Unavailable Manoj Locke MD Unavailable [phone] Reason for Visit * Reason Onset Date Comments Order(s) 10/20/2023 Encounter Details Date Type Department Care Team (Late st Contact Info) Description 10/20/2023 Telephone [facility] MEDICINE 230 [place] [address] Ana Luisa Bourne FNP [address] [place], [place] [phone] Order(s) Social History Tobacco Use Types Packs/Day [...] 4:02 PM EDT Tc from Sun with [facility] stating since pt is a smoker she is requesting her to have a CT scan before upcoming PE. If any questions you can contact Sun at [phone]. documented in this encounter Plan of Treatment [...] documented as of this encounter Care Teams Dynamics Ax Consultant Relationship Specialty Start Date End Date Ana Luisa Bourne FNP 230 [place] [address] PCP - General Family Medicine 11/01/21 Geeta Zeng PharmD 230 [place] [address] Pharmacist Internal Medicine 07/07/23 11/20/24 Priscilla Cody [address] [place] [address] Gastroenterology 11/21/24 Codie Quintero MD [address] [place] [address] Hematology and Oncology 11/21/24 Teodoro Palomino DPM [address] [place] [address] Podiatry 11/21/24 Manoj Locke MD [address] [address] General Surgery 11/21/24 [facility] 02/17/24 [facility] Foreign Exchange Clerk Mental Health 11/21/24 YOAN Cool ([facility]) Home Monitoring Clinician 11/21/24 documented as of this encounter
--- OUTSIDE RECORDS SUMMARY | 2024-12-29 20:00 | XMS_ITS | Encounter Summary ---
Author Organization [employer] Address [address] [facility] 7t [place] [address] Care Team Providers Care Forestry Patrolman Name Role Phone Ana Luisa Bourne Primary Care Provider Geeta Zeng PharmD Unavailable Priscilla Cody Unavailable Codie Quintero MD Unavailable [phone] Teodoro Palomino DPSolis Unavailable Manoj Locke MD Unavailable Reason for Visit * Reason Onset Date Comments Results 03/07/2023 Encounter Details Date Type Department Care Team ([facility] st Contact Info) Description 03/07/2023 Telephone [facility] MED & PEDS 505 [place], [place] [phone] Ana Luisa Bourne FNP 505 [place], [place] [phone] Results Social History Tobacco Use Types Packs/Day [...] when done: 02/05 Please contact pt at [phone] TC placed to patient regarding above message at all numbers. Preferred number above had full VM boxso no message could be left. Message left at main number to try us back. Interpretation of results below from Angélica Bourne. Routing back to [facility] nurses to try again. Please call Ms. [...] when done: 02/05 Please contact pt at [phone] documented in this encounter Plan of Treatment Not on file documented as of this encounter Visit Diagnoses Not on filedocumented in this encounter Additional Health Concerns Assessment Noted Time PHQ-9 Depression Total Score: 0 03/22/19 23 2:05 PM EST documented as of this encounter Care Teams Forestry Patrolman Relationship Specialty Start Date End Date Ana Luisa Bourne FNP 230 [place] [address] PCP - General Family Medicine 11/01/21 Geeta Zeng, DaphneD [address] [place] [address] Pharmacist Internal Medicine 07/07/23 11/20/24 Priscilla Cody [address] [place] [address] Gastroenterology 11/21/24 Codie Quintero MD [address] [place] [address] Hematology and Oncology 11/21/24 Teodoro Palomino DPM [address] [place] [address] Podiatry 11/21/24 Manoj Locke MD [address] [place] [address] General Surgery 11/21/24 [facility] 02/17/24 Isara Bench Molder Mental Health 11/21/24 YOAN Cool (VNA) Home Monitoring Clinician 11/21/24 documented as of this encounter
--- OUTSIDE RECORDS SUMMARY | 2024-12-29 20:00 | XMS_ITS | Encounter Summary ---
Author Organization [employer] Address [address] [facility] 7t [place] [address] Care Team Providers Care Lens Polisher Name Role Phone Ana Luisa Bourne [facility] Primary Care Provider Geeta Zeng PharmD Unavailable Priscilla Cody Unavailable Codie Quintero MD Unavailable [phone] Teodoro Palomino DPM Unavailable Manoj Locke MD Unavailable Reason for Visit * Reason Comments Med Refill Encounter Details Date Type Department Care Team (Late st Contact Info) Description 11/08/2022 Refill [facility] 230 [place], [place] [phone] [facility] 230 [place] [address] Left otitis media with effusion Social History [...] documented as of this encounter Care Teams Lens Polisher Relationship Specialty Start Date End Date Ana Luisa Bourne FNP 230 [place] [address] PCP - General Family Medicine 11/01/21 Geeta Zeng PharmD 230 [place] [address] Pharmacist Internal Medicine 07/07/23 11/20/24 Priscilla Cody [address] [place] [address] Gastroenterology 11/21/24 Codie Quintero MD [address] [place] [address] Hematology and Oncology 11/21/24 Teodoro Palomino DPM [address] [place] [address] Podiatry 11/21/24 Manoj Locke MD [address] [place] [address] General Surgery 11/21/24 [facility] 02/17/24 [facility] Manager Mental Health 11/21/24 YOAN Cool ([facility]NA) Home Monitoring Clinician 11/21/24 documented as of this encounter
--- OUTSIDE RECORDS SUMMARY | 2024-12-29 20:00 | XMS_ITS | Encounter Summary ---
Author Organization [employer] Address [address] [facility] 7t [place] [address] Care Team Providers Care Change Management Analyst Name Role Phone Ana Luisa Bourne Primary Care Provider [phone] Geeta Zeng PharmD Unavailable Priscilla Cody Unavailable Codie Quintero MD Unavailable [phone] Teodoro Palomino DPM Unavailable Manoj Locke MD Unavailable [phone] Reason for Visit * Reason Onset Date Comments Med Refill 01/09/2023 Encounter Details Date Type Department Care Team (Late st Contact Info) Description 01/09/2023 Refill [facility] MEDICINE [address] [place] [address] Ana Luisa Bourne FNP 505 [place], [place] [phone] Type 2 diabetes mellitus without complication, with long-term current use of insulin ([facility]) Social History Tobacco Use Types Packs/Day [...] 12:30 PM EDT Tc from Jason from [facility] requesting medication refill for OXcarbazepine (Trileptal) 600 MG tablet, tamoxifen (Nolvadex) 20 MG chemo tablet, dapagliflozin (Farxiga) 5 MG. Jason alsostated that he was given 10mg of the dapagliflozin 5mg production underwriter did not see that on med list please verify. Please call [phone] documented in this encounter Plan of Treatment Not on file documented as of this encounter Visit Diagnoses Diagnosis Type 2 diabetes mellitus without complication, with long-term current use of insulin (HCC) documented in this encounter Additional Health Concerns Assessment Noted Time PHQ-9 Depression Total Score: 0 03/22/19 23 2:05 PM EST documented as of this encounter Care Teams Change Management Analyst Relationship Specialty Start Date End Date Ana Luisa Bourne FNP 230 [place] [address] PCP - General Family Medicine 11/01/21 Geeta Zeng PharmD 230 [place] [address] Pharmacist Internal Medicine 07/07/23 11/20/24 Priscilla Cody [address] [place] [address] Gastroenterology 11/21/24 Codie Quintero MD [address] [place] [address] Hematology and Oncology 11/21/24 Teodoro Palomino DPM [address] [place] [address] Podiatry 11/21/24 Manoj Locke MD [address] [address] General Surgery 11/21/24 [facility] 02/17/24 Isara Faro Dealer Mental Health 11/21/24 YOAN Cool ([facility]) Home Monitoring Clinician 11/21/24 documented as of this encounter
--- OUTSIDE RECORDS SUMMARY | 2024-12-29 20:00 | XMS_ITS | Encounter Summary ---
Author Organization [employer] Address [address] [place] [address] Care Team Providers Care Big Data Analytics Lead Name Role Phone RupinderHarish oronale SHEET METAL SUPERINTENDENT Primary Care Provider [phone] Geeta Zeng PharmD Unavailable [phone] Priscilla Cody Unavailable Codie Quintero MD Unavailable [phone] Teodoro Palomino DPM Unavailable [phone] Manoj Locke MD Unavailable [phone] Encounter Details Date Type Department Care Team (Late st Contact Info) Description 02/03/2024 Orders Only [facility] [address] [place] [address] Provider, MD William Social History Tobacco Use [...] Ql NAAT (10/14/2024 8:34 AM EDT) Pathologist [facility] Influenza A PCR NEGATIVE Negative [facility] Influenza B PCR NEGATIVE Negative [facility] Resp Syncy Virus RNA Qual PCR NEGATIVE Negative [facility] SARS COV2 PCR NEGATIVE Negative [facility] Comment:All test results mus t [...] use by authorized laboratories.Testing performed on the [employer] GeneXpert utilizingreal-time RT-PCR.All SARS CoV2 and positive influenza A/B results arereported to [facility]. 10/14/2024 8:34 AM EDT 10/14/2024 8:41 AM EDT us Generic External Data Provider LAB MICROBIOLOGY - GENERAL ORDERABLES Final Result [facility] [address] [place] [address] [phone] * (ABNORMAL) Confirmatory Syphilis Profile (09/20/2024 11:05 AM EDT) Pathologist [facility] Rapid Plasma Reagin, Quant Reactive 1:2(A) Nonreactive [facility] Treponema pallidum Antibody, Particle Agglutination Reactive(A) Nonreactive [facility] Comment:These results must b e reported by the ordering clinician orclinical facility to the [facility] required by state law.Testing performed at: [address] [address] 09/20/2024 11:0 5 AM EDT 09/21/2024 8:11 AM EDT us Lexi Mancera [facility] LAB BLOOD ORDERABLES Elaine l Result Performing Organization Address City/[facility]/ZIP Co de Phone Number [facility] [address] [place] [phone] * Creatinine, Serum (09/20/2024 11:05 AM EDT) Creatinine, Serum 0.70 0.5 - 1.4 mg/dL [facility] Estimated Glomerular Filt Rate >60 [facility] Comment:Chronic Kidney Disea se: Estimated GFR < 60 mL/min/1.30l7Qsaxot Kidney Disease: Estimated GFR < 15 mL/min/1.73m2 09/20/2024 11:0 5 AM EDT 09/20/2024 1:43 PM EDT us Generic External Data Provider LAB BLOOD ORDERAB LES Final Result Performing Organization Address [facility] Co de Phone Number [facility] [address] [place] [phone] * BUN (Blood Urea Nitrogen) (09/20/2024 11:05 AM EDT) Urea Nitrogen (BUN) 12 9 - 16 mg/dL [facility] 09/20/2024 11:0 5 AM EDT 09/20/2024 1:43 PM EDT us Generic External Data Provider LAB BLOOD ORDERAB LES Final Result Performing Organization Address [facility]/ZIP Co de Phone Number [facility] [address] [place] [phone] * (ABNORMAL) Comprehensive Metabolic Panel (06/02/2024 2:31 PM EDT) Pathologist [facility] Sodium 144 135 - 145 mmol/L [facility] Potassium 3.6 3.3 - 5.1 mmol/L [facility] Chloride 108 96 - 108 mmol/L [facility] Carbon Dioxide 29 22 - 29 mmol/L [facility] Anion Gap 11(L) 12 - 20 [facility] Urea Nitrogen (BUN) 4(L) 9 - 16 mg/dL [facility] Creatinine, Serum 0.66 0.5 - 1.4 mg/dL [facility] Estimated Glomerular Filt Rate >60 [facility] Comment:Chronic Kidney Disea se: Estimated GFR < 60 mL/min/1.67g9Xbwulq Kidney Disease: Estimated GFR < 15 mL/min/1.73m2 Glucose 188(H) 60 - 115 mg/dL [facility] Calcium 9.4 8.4 - 10.2 mg/dL [facility] Bilirubin, Total 0.3 0.0 - 1.0 mg/dL [facility] Aspartate Amino Transferase 20 5 - 31 U/L [facility] Alanine Aminotransferase 18 0 - 31 U/L [facility] Total Protein 7.2 6.5 - 8.0 g/dL [facility] Albumin Level 3.8 3.5 - 5.0 g/dL [facility] Alkaline Phosphatase 84 39 - 117 U/L [facility] 06/02/2024 2:31 PM EDT 06/02/2024 2:31 PM EDT us Generic External Data Provider LAB BLOOD ORDERAB LES Final Result [facility] [address] [place] [phone] * CBC auto differential (06/02/2024 2:31 PM EDT) Pathologist [facility] White Blood Count 9.0 4.8 - 10.8 X10*3/uL [facility] Red Blood Count 5.24 4.20 - 5.50 X10*6/uL [facility] Hemoglobin 14.3 12.0 - 16.0 g/dl [facility] Hematocrit 46.1 37.0 - 47.0 % [facility] Mean Corpuscular Volume 88.0 80.0 - 98.0 fL [facility] Mean Corpuscular Hemoglobin 27.3 27.0 - 33.0 pg [facility] Mean Corpuscular HGB Conc 31.0 31.0 - 35.0 g/dl [facility] Red Cell Distribution Width 13.7 11.0 - 16.0 % [facility] Platelet Count 286 160 - 400 X10*3/uL [facility] Mean Platelet Volume 10.2 9.4 - 12.3 fL [facility] Neutrophils Percent Auto 67.0 45 - 73 % [facility] Imm Gran Pct Auto 0.3 0.0 - 0.4 % [facility] Lymphocytes Percent Auto 24.3 20 - 40 % [facility] Monocytes Percent Auto 6.5 2 - 11 % [facility] Eosinophils Percent Auto 1.0 0 - 4 % [facility] Basophils Percent Auto 0.9 0 - 2 % [facility] NRBC Pct Auto 0.0 0.0 - 0.2 /100WBC [facility] Neutrophils Absolute Auto 6.0 2.0 - 8.3 x10*3/uL [facility] Imm Gran Abs Auto 0.03 0.00 - 0.03 X10*3/uL [facility] Lymphocytes Absolute Auto 2.2 1.2 - 4.9 X10*3/uL [facility] Monocytes Absolute Auto 0.6 0.1 - 1.2 X10*3/uL [facility] Eosinophils Absolute Auto 0.1 0.0 - 0.4 X10*3/uL [facility] Basophils Absolute Auto 0.1 0.0 - 0.2 X10*3/uL [facility] NRBC Abs Auto 0.000 0.0 - 0.012 X10*3/uL [facility] 06/02/2024 2:31 PM EDT 06/02/2024 2:31 PM EDT us Generic External Data Provider LAB BLOOD ORDERAB LES Final Result [facility] [address] [place] [phone] [phone] * Hm Colonoscopy (01/16/2024 2:15 PM EST) us Historical Provider HEALTH MAINTENANCE Final Result documented in this encounter Visit Diagnoses Not on filedocumented in this encounter Additional Health Concerns Assessment Noted Time PHQ-9 Depression Total Score: 9 12/18/19 24 1:33 PM EDT documented as of this encounter Care Teams Big Data Analytics Lead Relationship Specialty Start Date End Date Ana Luisa Bourne FNP [address] [place] [address] PCP - General Family Medicine 11/01/21 Geeta Zeng, DaphneD [address] [place] [address] Pharmacist Internal Medicine 07/07/23 11/20/24 Priscilla Cody [address] [place] [address] Gastroenterology 11/21/24 Codie Quintero MD [address] [place] [address] Hematology and Oncology 11/21/24 Teodoro Palomino DPM [address] [place] [address] Podiatry 11/21/24 Manoj Locke MD [address] [address] General Surgery 11/21/24 [facility] Health 02/17/24 [employer]anner Scrap Dealer Mental Health 11/21/24 YOAN Cool (A) Home Monitoring Clinician 11/21/24 documented as of this encounter
--- OUTSIDE RECORDS SUMMARY | 2024-12-29 20:00 | XMS_ITS | Encounter Summary ---
Author Organization [employer] Address [address] [place] [address] Care Team Providers Care Iron Melter Name Role Phone Ana Luisa Bourne Primary Care Provider Geeta Zeng PharmD Unavailable [phone] Priscilla Cody Unavailable Codie Quintero MD Unavailable [phone] Teodoro Palomino DPM Unavailable Manoj Locke MD Unavailable [phone] Reason for Visit * Reason Comments Med Refill Encounter Details Date Type Department Care Team (Late st Contact Info) Description 08/29/2024 Refill [facility] [address] [place] [address] Ana Luisa Bourne FNP [address] [place], [place] [phone] Other hyperlipidemia Social History Tobacco Use Types [...] documented as of this encounter Care Teams Iron Melter Relationship Specialty Start Date End Date Ana Luisa Bourne FNP [address] [place] [address] PCP - General Family Medicine 11/01/21 Geeta Zeng, Santosh [address] [place] [address] Pharmacist Internal Medicine 07/07/23 11/20/24 Priscilla Cody [address] [place] [address] Gastroenterology 11/21/24 Codie Quintero MD [address] [place] [address] Hematology and Oncology 11/21/24 Teodoro Palomino DPM [address] [place] [address] Podiatry 11/21/24 Manoj Locke MD [address] [place] [address] General Surgery 11/21/24 [facility] Health 02/17/24 [facility] Paperhanger And Painter Mental Health 11/21/24 YOAN Cool (VNA) Home Monitoring Clinician 11/21/24 documented as of this encounter
--- OUTSIDE RECORDS SUMMARY | 2024-12-29 20:00 | XMS_ITS | Encounter Summary ---
Author Organization [employer] Address [address] [facility] [address]t [place] [address] Care Team Providers Care Duct Cleaner Name Role Phone Ana Luisa Bourne [facility] Primary Care Provider [phone] Geeta Zeng PharmD Unavailable Priscilla Cody Unavailable Codie Quintero MD Unavailable [phone] Teodoro Palomino DPM Unavailable Manoj Locke MD Unavailable Reason for Visit * Reason Comments Med Refill Encounter Details Date Type Department Care Team (Late st Contact Info) Description 11/06/2022 Refill [facility] [address] [place], [place] [phone] [employer] [address] [place] [address] Left otitis media with effusion Social History [...] documented as of this encounter Care Teams Duct Cleaner Relationship Specialty Start Date End Date Ana Luisa Bourne FNP [address] [place] [address] PCP - General Family Medicine 11/01/21 Geeta Zeng PharmD [address] [place] [address] Pharmacist Internal Medicine 07/07/23 11/20/24 Priscilla Cody [address] [place] [address] Gastroenterology 11/21/24 Codie Quintero MD [address] [place] [address] Hematology and Oncology 11/21/24 Teodoro Palomino DPM [address] [place] [address] Podiatry 11/21/24 Manoj Locke MD [address] [place] [address] General Surgery 11/21/24 [facility] Health 02/17/24 [facility] Supervisor [employer] Mental Health 11/21/24 YOAN Cool (VNA) Home Monitoring Clinician 11/21/24 documented as of this encounter
--- OUTSIDE RECORDS SUMMARY | 2024-12-29 20:00 | XMS_ITS | Encounter Summary ---
Author Organization [employer] Address [address] [facility] 7t [place] [address] Care Team Providers Care Kiln Operator Name Role Phone Ana Luisa Bourne Primary Care Provider Geeta Zeng PharmD Unavailable [phone] Priscilla Cody Unavailable Codie Quintero MD Unavailable [phone] Teodoro Palomino DPM Unavailable Manoj Locke MD Unavailable Reason for Visit * Reason Comments Med Change Request Encounter Details Date Type Department Care Team (Late st Contact Info) Description 09/18/2022 Refill [facility] [address] [place] [address] Ana Luisa Bourne FNP [address] [place], [place] [phone] Type 2 diabetes mellitus without complication, with long-term current use of insulin ([facility]) Social History Tobacco Use Types Packs/Day [...] documented as of this encounter Care Teams Kiln Operator Relationship Specialty Start Date End Date Ana Luisa Bourne FNP [address] [place] [address] PCP - General Family Medicine 11/01/21 Geeta Zeng, DaphneD [address] [place] [address] Pharmacist Internal Medicine 07/07/23 11/20/24 Priscilla Cody [address] [place] [address] Gastroenterology 11/21/24 Codie Quintero MD [address] [place] [address] Hematology and Oncology 11/21/24 Teodoro Palomino DPM [address] [place] [address] Podiatry 11/21/24 Manoj Locke MD [address] [place] [address] General Surgery 11/21/24 [facility] Health 02/17/24 [employer]place [employer] Adviser Mental Health 11/21/24 YOAN Cool (VNA) Home Monitoring Clinician 11/21/24 documented as of this encounter
--- OUTSIDE RECORDS SUMMARY | 2024-12-29 20:00 | XMS_ITS | Encounter Summary ---
Author Organization [employer] Address [address] [facility] [address]t [place] [address] Care Team Providers Care Personal Banking Officer Name Role Phone Ana Luisa Bourne Primary Care Provider Geeta Zeng PharmD Unavailable Priscilla Cody Unavailable Codie Quintero MD Unavailable [phone] Teodoro Palomino DPM Unavailable Manoj Locke MD Unavailable Reason for Visit * Reason Comments Med Refill Encounter Details Date Type Department Care Team (Late st Contact Info) Description 05/17/2022 Refill [facility] [address] [place] [address] Ana Luisa Bourne FNP [address] [place], [place] [phone] Social History Tobacco Use Types Packs/Day Years [...] documented as of this encounter Care Teams Personal Banking Officer Relationship Specialty Start Date End Date Ana Luisa Bourne FNP [address] [place] [address] PCP - General Family Medicine 11/01/21 Geeta Zeng, DaphneD [address] [place] [address] Pharmacist Internal Medicine 07/07/23 11/20/24 Priscilla Cody [address] [place] [address] Gastroenterology 11/21/24 Codie Quintero MD [address] [place] [address] Hematology and Oncology 11/21/24 Teodoro Palomino DPM [address] [place] [address] Podiatry 11/21/24 Manoj Locke MD [address] [place] [address] General Surgery 11/21/24 [facility] Health 02/17/24 [facility] Mental Health 11/21/24 YOAN Cool (A) Home Monitoring Clinician 11/21/24 documented as of this encounter
--- OUTSIDE RECORDS SUMMARY | 2024-12-29 20:00 | XMS_ITS | Clinical Summary ---
Author Organization [employer] Address [address] [facility] [address] [place] [address] Care Team Providers Care Oracle Application Architect Name Role Phone Ana Luisa Bourne GIUSEPPE Primary Care Provider [phone] Priscilla Cody Unavailable Codie Quintero MD Unavailable [phone] Teodoro Palomino DPSolis Unavailable Manoj Locke MD Unavailable [phone] Allergies No known active allergies Medications * [...] complication, with long-term current use of insulin ([facility]) Inject 40 Units under the skin with breakfast and with evening meal. 3 mL 12 12/29/19 24 Active budesonide-formote rol (Symbicort) 80-4.5 MCG/ACT inhalerIndications :Hx of wheezing Inhale 2 puffs in the morning and at bedtime. Rinse mouth with water after use to reduce aftertaste and incidence of candidiasis. Do not swallow. 1 each 11 12/29/19 24 Active albuterol (Ventolin HFA) 108 (90 Base) [...] complication, with long-term current use of insulin ([facility]) TAKE 1 TABLET BY MOUTH EVERY MORNING [...] of syphilis 04/20/2023 Overview (04/20/2023): Following with [facility] ID - Dr. Nichols Consult plan July 2022: Repeat RPR Q6-12 months. Tx if titer > 1:16 Assessment & Plan (11/21/2024 3:47 PM EDT): - Reactive titer 1:2 in September 2024 Healthcare maintenance 12/29/2022 Overview (11/21/2024): Mammo: history of left breast CA. Mammo BIRADS 2 on 07/21/24 Pap: HPV neg 06/05/21, followed by Estela Hung CNM Colonoscopy: 01/16/24 at [facility] - repeat 2-3 years d/t adenoma polyps and sub optimal prep LDCT: referred to [facility] September 2023 Dental: referral to [facility] Dental Apr 2023 Last PE: 11/19/24 Hep B immune status: not-immune as of 09/2024 despite 3-dose Hep B series. Consider Heplisav 2-dose series. Assessment & Plan (04/20/2023 6:48 PM EST): Reviewed routine screening above with pt and Caitlin. 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 Reviewed med safety and SE. -Referred to [facility] LDCT for lung CA screening on 09/17/23 Assessment & Plan (09/17/2023 4:38 PM EDT): - Encouraged smoking cessation resources such as pharmacomtherapy, [facility] smoking cessation group, and [facility] pharmacy smoking cessation clinic -Cigg/day: 40 -Age started: 20 -Total years smokin -Pack year history: > 30 -Cont NRT patches and gum. Reviewed med safety and SE. -Referred to [facility] LDCT for lung CA screening on 09/17/23 Assessment & Plan (04/20/2023 6:49 PM EST): - Encouraged smoking cessation resources such as pharmacomtherapy, [facility] smoking cessation group, and [facility] pharmacy smoking cessation clinic - Discuss [...] make med adjustments today -Plan: [facility] management of T2DM and [...] situ) of the left breast -Followed by [facility] Meliza/Onc Opal Quintero -She is s/p lumpectomy, completed radiation therapy. -Continues on tamoxifen 20mg daily x 5 years (until 07/13/2025) -Denies any med SE -Plan for annual pelvic exam and annual eye exams Assessment & Plan (12/30/2023 8:43 PM EDT): -DCIS (Ductal carcinoma in situ) of the left breast -Followed by [facility] Meliza/Onc Opal Quintero -She is S/p lumpectomy, completed radiation therapy. -Continues on tamoxifen 20mg daily x 5 years (until 07/13/2025) -Denies any med SE -Plan for annual pelvic exam and annual eye exams Assessment & Plan (04/20/2023 6:31 PM EST): -DCIS (Ductal carcinoma in situ) of the left breast -Followed by [facility] Meliza/Onc Opal Quintero -She is S/p lumpectomy, completed radiation therapy. -Continues on tamoxifen 20mg daily x 5 years (until 07/13/2025) -Denies any med SE -Plan for annual pelvic exam and annual eye exams Assessment & Plan (12/29/2022 5:58 PM EDT): -Followed by [facility] Heme/Onc - Dr. Quintero -She is S/p [...] (11/21/2024 3:46 PM EDT): - Following with [facility] GI - Meds include: dulcolax, senna, colace, and miralax - Encouraged increased fiber intake and activity Assessment & Plan (03/25/2022 1:54 PM EST): -Continue following with management through GI Schizoaffective disorder ([facility]/HCC) 05/28/2018 Assessment & Plan (12/06/2024 11:51 AM [...] Previously following with Palmira Stewart. Referral to [facility] Forms team on 09/17/23 to assist with INTERIOR HORTICULTURIST eval. Assessment & Plan (09/17/2023 4:40 PM EDT): -Denies SI/HI/thoughts of self harm -Followed by Dr. Slade Gracia -Continue with med management through psych team: Invega 12mg PO daily Trazodone 200mg PO at bedtime PRN Oxcarbazepine 600mg PO at bedtime Zoloft 200mg PO daily Seroquel 100mg PO at bedtime Topamax 25mg BID Previously following with Palmira Stewart. Referral to [facility] Forms team on 09/17/23 to assist with INTERIOR HORTICULTURIST eval. Assessment & Plan (04/20/2023 6:37 PM [...] organization. Date Type Department Care Team Description 12/23/2024 Orders Only GENERIC EXTERNAL DATA DEPARTMENT Provider, Generic External Data 12/22/2024 Results Follow-Up [facility] MED [facility] PED[facility] [address] [place] [address] Ana Luisa Bourne, QUILL WORKER POCT Glucose, POCT Hgb A1c, Lipid Panel, Standard, Additional followed-up results: 2 12/21/[address] [address] Ana Luisa Bourne FNP 12/03/2024 10:00 AM EDT Immunization [address] [address] Encounter for immunization 12/03/2024 Travel 12/02/2024 Patient Outreach [address] [address] Codey Seth Recovery Supports 12/02/2024 Orders Only GENERIC EXTERNAL DATA DEPARTMENT Provider, Generic External Data 12/01/2024 9:00 AM EDT Office Visit [address] [address] Keith Hernandez MD Alcohol use disorder, severe, dependence (CMS/HCC) (Primary Dx) 12/01/2024 Travel 11/30/2024 10:15 AM EDT Office Visit [address] [address] Mojgan Clarke MD Stress (Primary Dx) 11/30/2024 Patient Outreach [address] [address] Hernan Lazo Recovery Supports 11/30/[address] [address] Ana Luisa Bourne FNP 11/30/2024 Travel 11/24/2024 Orders Only [facility] [address] [place] [address] Laverne Penaloza MD Type 2 diabetes mellitus without complication, with long-term current use of insulin (CMS/HCC) (Primary Dx) 11/24/2024 Telephone [facility] [address] [place] [address] Angeline Georges, DaphneD 11/22/[address] [address] Ana Luisa Bourne FNP 11/19/2024 9:30 AM EDT Office Visit [facility] [address] [place], [place] [phone] Ana Luisa Bourne FNP Encounter for routine [...] wheezing; Tobacco use 11/19/2024 Travel 11/18/2024 Telephone [facility] PED[facility] [address] [place], [place] [phone] Ana Luisa Bourne FNP chart prep 11/12/2024 1:00 PM EDT Office Visit [facility] OPTOMETRY [address] [place] [address] Juli Lutz, SAMUEL Type 2 diabetes mellitus without ophthalmic manifestations (CMS/HCC) (Primary Dx); Myopia of both eyes; Presbyopia; Dry eyes; Age-related nuclear cataract of both eyes 11/12/2024 Travel 11/12/2024 Patient Outreach [facility] MEDICINE [address] [place] [address] Ana Luisa Bourne FNP Pre-visit Planning (Pre visit planning LVM ) 11/09/2024 Patient Outreach [facility] MEDICINE [address] [place] [address] Hernan Lazo RC Recovery Supports 10/28/2024 Patient Outreach [facility] MEDICINE [address] [place] [address] Codey Seth RC Recovery Supports 10/27/2024 Telephone [facility] MEDICINE [address] [place] [address] Ana Luisa Bourne FNP ER Follow-up 10/25/2024 Patient Outreach [facility] MEDICINE [address] [place] [address] Liya Locke RC Recovery Supports 10/25/2024 Refill [facility] MED & PEDS [address] [place], [place] [phone] Ana Luisa Bourne FNP Type 2 diabetes mellitus without complication, with long-term current use of insulin (CMS/HCC) 10/14/2024 Orders Only [facility] External Provider, [facility] 10/12/2024 Telephone [facility] MED [facility] PED[facility] [address] [place] [address] Ana Luisa Bourne FNP Results 10/11/2024 1:00 PM EDT Office Visit [address] [address] Lexi Mancera CNM Urinary symptom or sign (Primary Dx); Candidiasis of vulva and vagina; Encounter for pre-exposure prophylaxis for HIV; Asymptomatic microscopic hematuria 10/11/2024 Patient Outreach [address] [address] Liya Locke Recovery Supports 10/11/[address] [address] Guera Chavez RN Blood Sugar Problem; Nurse Triage 10/11/2024 Travel 10/08/2024 Patient Outreach [address] [address] Kain Gaitan Recovery Supports 10/08/2024 Telephone [facility] WALK-IN CENTER [address] [place] [address] Vera Zarate [place] 10/07/2024 Patient Outreach [address] [address] Codey Seth 10/06/2024 9:00 AM EDT Office Visit [address] [address] Keith Hernandez MD Alcohol use disorder, severe, dependence (CMS/HCC) (Primary Dx) 10/06/2024 Travel 10/04/2024 Refill [facility] MED [facility] PEDS [address] [place] [address] Ana Luisa Bourne FNP 10/04/2024 Patient Outreach [address] [address] Liya Locke Recovery Supports from Last 3 Months Immunizations [...] the past 12 months, has t he [employer], gas, oil or water company threatened to [...] Procedure Name Priority Date/Time Associated Diagnosis Comments CREATININE, SERUM Routine 12/23/2024 8:4 0 AM EDT UREA NITROGEN (BUN) Routine 12/23/2024 8 :40 AM EDT LIPASE Routine 12/02/2024 8:44 AM EDT C-REACTIVE PROTEIN Routine 12/02/2024 8: 44 AM EDT TSH W/REFLEX TO FT4 Routine 12/02/2024 8 :44 AM EDT Subclinical hypothyroidism Encounter for routine history and physical examination of adult COMPREHENSIVE METABOLIC PANEL Routine 12/02/2024 8:44 AM EDT Type 2 diabetes mellitus without complication, with long-term current use of insulin ([facility]) Primary hypertension LIPID PANEL, STANDARD Routine 12/02/2024 8:44 AM EDT Type 2 diabetes mellitus without complication, with long-term current use of insulin (CMS/HCC) Primary hypertension POCT GLYCATED HEMOGLOBIN, TOTAL Routine 11/19/2024 10:20 AM EDT Type 2 diabetes mellitus without complication, with long-term current use of insulin (CMS/HCC) POCT GLUCOSE Routine 11/19/2024 10:20 AM EDT Type 2 diabetes mellitus without complication, with long-term current use of insulin (CMS/HCC) FL SMALL BOWEL FOLLOW THROUGH Routine 10/14/2024 11:20 AM EDT SARS COV2/INFLUENZA A/B AND RSV RNA QL NAAT Routine 10/14/2024 8:[address] ABDOMEN PELVIS W CONTRAST Routine 10/14/2024 7:58 AM EDT POCT GLUCOSE Routine 10/11/2024 2:42 PM EDT Type 2 diabetes mellitus without complication, with long-term current use of insulin (CMS/HCC) POCT URINALYSIS DIPSTICK Routine 10/11/2024 1:01 PM EDT Urinary symptom or sign HEPATITIS C [...] ZZZ HISTORICAL HPV E6/E7 RFLX MARIBELL 16 /45 Routine 06/05/2021 3:35 PM EDT from Last 3 Months or Most Recently Relevant to Health Maintenance Results * Creatinine, Serum (12/23/2024 8:40 AM EDT) Creatinine, Serum 0.79 0.5 - 1.4 mg/dL [facility] Estimated Glomerular Filt Rate >60 [facility] Comment:Chronic Kidney Disea se: Estimated GFR < 60 mL/min/1.39o2Wvoxys Kidney Disease: Estimated GFR < 15 mL/min/1.73m2 12/23/2024 8:40 AM EDT 12/23/2024 11:29 AM EDT Generic External Data Provider LAB BLOOD ORDERAB LES Final Result Performing Organization Address City/[facility]/ZIP Co de Phone Number [facility] [address] [place] [phone] * (ABNORMAL) BUN (Blood Urea Nitrogen) (12/23/2024 8:40 AM EDT) Urea Nitrogen (BUN) 7(L) 9 - 16 mg/dL [facility] 12/23/2024 8:40 AM EDT 12/23/2024 11:29 AM EDT us Generic External Data Provider LAB BLOOD ORDERAB LES Final Result Performing Organization Address City/[facility]/ZIP Co de Phone Number [facility] [address] [place] [phone] * TSH W/Reflex to FT4 (12/02/2024 8:44 AM EDT) TSH reflex Free T4 1.28 0.32 - 4.0 uIU/mL [facility] Blood Venous blood specimen / Unknown 12/02/2024 8:44 AM EDT 12/02/2024 10:57 AM EDT us Ana Luisa Bourne QUILL WORKER LAB BLOOD ORDERABLES Final Res ult Performing Organization Address [facility] Co de Phone Number [facility] [address] [place] [phone] * (ABNORMAL) C-reactive Protein (12/02/2024 8:44 AM EDT) C Reactive Protein 1.40(H) < or = 0.50 mg/dL [facility] 12/02/2024 8:44 AM EDT 12/02/2024 10:57 AM EDT us Generic External Data Provider LAB BLOOD ORDERAB LES Final Result Performing Organization Address [facility] [place] Phone Number [facility] [address] [place] [phone] * Lipase (12/02/2024 8:44 AM EDT) Lipase 21 8 - 78 U/L [facility] 12/02/2024 8:44 AM EDT 12/02/2024 10:57 AM EDT Generic External Data Provider LAB BLOOD ORDERAB LES Final Result Performing Organization Address [facility] Co de Phone Number [facility] [address] [place] [phone] * (ABNORMAL) Lipid Panel, Standard (12/02/2024 8:44 AM EDT) Triglycerides 90 <150 mg/dL [facility] Comment:Desirable Triglyceri de: less than 150 mg/dLBorderline High Triglyceride 150-199 mg/dLHigh Triglyceride: 200-499 mg/dLVery High Triglyceride: greater than or equal to 5OO mg/dL Cholesterol 152 <200 mg/dL [facility] Comment:Desirable Cholestero l: less than 200 mg/dLBorderline High Cholesterol: 200-239 mg/dLHigh Cholesterol: greater than 239 mg/dL LDL Cholesterol Calculated 96 <100 mg/dL [facility] Comment:Desirable LDL: less than 100 mg/dLNear Optimal/Above Optimal LDL: 110- 129 mg/dLBorderline High LDL: 130-159 mg/dLHigh LDL: 160-189 mg/dLVery High LDL: greater than or equal to 190 mg/dL HDL Cholesterol 38(L) >40 mg/dL [facility] Comment:Desirable HDL: great er than 40 mg/dL Note: This HDL assay may give artificially low results in patients with liver disease. Blood Venous blood specimen / Unknown 12/02/2024 8:44 AM EDT 12/02/2024 10:57 AM EDT us Ana Luisa Bourne QUILL WORKER LAB BLOOD ORDERABLES Final Res ult [facility] [address] [place] [phone] * (ABNORMAL) Comprehensive Metabolic Panel (12/02/2024 8:44 AM EDT) Sodium 141 135 - 145 mmol/L [facility] Potassium 3.7 3.3 - 5.1 mmol/L [facility] Chloride 107 96 - 108 mmol/L [facility] Carbon Dioxide 26 22 - 29 mmol/L [facility] Anion Gap 12 12 - 20 [facility] Urea Nitrogen (BUN) 10 9 - 16 mg/dL [facility] Creatinine, Serum 0.73 0.5 - 1.4 mg/dL [facility] Estimated Glomerular Filt Rate >60 [facility] Comment:Chronic Kidney Disea se: Estimated GFR < 60 mL/min/1.06e5Slxmfn Kidney Disease: Estimated GFR < 15 mL/min/1.73m2 Glucose 220(H) 60 - 115 mg/dL [facility] Calcium 8.8 8.4 - 10.2 mg/dL [facility] Bilirubin, Total 0.4 0.0 - 1.0 mg/dL [facility] Aspartate Amino Transferase 16 5 - 31 U/L [facility] Alanine Aminotransferase 11 0 - 31 U/L [facility] Total Protein 6.9 6.5 - 8.0 g/dL [facility] Albumin Level 3.9 3.5 - 5.0 g/dL [facility] Alkaline Phosphatase 84 39 - 117 U/L [facility] Blood Venous blood specimen / Unknown 12/02/2024 8:44 AM EDT 12/02/2024 10:57 AM EDT Ana Luisa Bourne QUILL WORKER LAB BLOOD ORDERABLES Final Res ult [facility] [address] [place] [phone] * (ABNORMAL) POCT Hgb A1c (11/19/2024 10:20 AM EDT) Hemoglobin A1C 13.7(A) 4.0 - 5.7 % QC Media Lot # [id number] Lot# Expiration Date Blood 11/19/2024 10:2 0 AM EDT Ana Luisaayla Bourne QUILL WORKER POINT OF CARE TEST ENTER/EDIT ORDERABLES Final Result * (ABNORMAL) POCT Glucose (11/19/2024 10:20 AM EDT) Only the most recent of2 resultswithin the time period is included. Glucose Blood, POC 286(A) 60 - 200 mg/dL QC Media Lot # [id number] Lot# Expiration Date Blood Capillary blood specimen / Unknown 11/19/2024 10:20 AM EDT Ana Luisa Bucioen QUILL WORKER POINT OF CARE TEST ENTER/EDIT ORDERABLES Final Result * FL SMALL BOWEL FOLLOW THROUGH (10/14/2024 11:20 AM EDT) Anatomical Region Laterality Modality Radiographic Kristi ging 10/14/2024 11:2 0 AM EDT Narrative 10/14/2024 4:19 PM EDT [address] [address] Fluoroscopy Report Signed Patient: Hodan Lopez MR#: [id number] : 1970 Acct:[id number] Age/Sex: 54 / F ADM Date: 10/14/24 Loc: [facility]- Attending Dr: Carmen Glover PA-C Ordering Physician: Carmen Glover PA-C Date of Service: 10/14/24 Procedure(s): FL small bowel follow through Accession Number(s): [id number] cc: [facility]; Carmen Glover PA-C EXAMINATION: FL SMALL BOWEL SERIES CLINICAL INFORMATION: SBO with concern for internal hernia COMPARISON: None. TECHNIQUE: Following a epoxy specialist image of the abdomen, contrast was administered orally, and interval abdominal radiographs were performed to assess for contrast progression through the small bowel. Following contrast transit through the small bowel and into the colon, the patient was placed on the fluoroscopy table, and multiple spot images were obtained. FINDINGS: Paint Booth Operator image of the abdomen demonstrates a normal [...] 10/14/24 1616 DD/ 1120 TD/TT: 10/14/24 1345 Night Warehouse Selector: CHAYO Procedure Note Donotuseinterpreter, Image - 10/14/2024 [place] [address] Fluoroscopy Report Signed Patient: Lianna Lopez#: [id number] : 1970Acct:[id number] Age/Sex: 54 / FADM Date: 10/14/24 Loc: [place] [address]: aCrmen Glover PA-C Ordering Physician: Carmen Glover PA-C Date of Service: 10/14/24 Procedure(s): FL small bowel follow through Accession Number(s): [id number] cc: [facility]; Carmen Glover PA-C EXAMINATION: FL SMALL BOWEL SERIES CLINICAL INFORMATION: SBO with concern for internal hernia COMPARISON: None. TECHNIQUE: Following a epoxy specialist image of the abdomen, contrast was administered orally, and interval abdominal radiographs were performed to assess for contrast progression through the small bowel. Following contrast transit through the small bowel and into the colon, the patient was placed on the fluoroscopy table, and multiple spot images were obtained. FINDINGS: Paint Booth Operator image of the abdomen demonstrates a normal [...] Ricardo Harrington MD 10/14/2024 04:16 PM EDT RP Dictated By: Ricardo Harrington MD Signed By: <Electronically signed by Ricardo Harrington MD in OV> 10/14/24 1616 DD/ 1120 TD/TT: 10/14/24 1345 Night Warehouse Selector: CHAYO [facility] External Provider IMG FLU OROSCOPY PROCEDURES Final Result * SARS-CoV-2 RNA, Influenza A/B, and RSV RNA, Ql NAAT (10/14/2024 8:34 AM EDT) Influenza A PCR NEGATIVE Negative [facility] Influenza B PCR NEGATIVE Negative [facility] Resp Syncy Virus RNA Qual PCR NEGATIVE Negative [facility] SARS COV2 PCR NEGATIVE Negative [facility] Comment:All test results mus t [...] use by authorized laboratories.Testing performed on the [employer] GeneXpert utilizingreal-time RT-PCR.All SARS CoV2 and positive influenza A/B results arereported to [facility]. 10/14/2024 8:34 AM EDT 10/14/2024 8:41 AM EDT Generic External Data Provider LAB MICROBIOLOGY - GENERAL ORDERABLES Final Result [facility] [address] [place] [phone] * CT Abdomen Pelvis w/ Contrast (10/14/2024 7:58 AM EDT) Anatomical Region Laterality Modality Body, Pelvis, Abdomen Computed T omography 10/14/2024 7:5 8 AM EDT Narrative 10/14/2024 9:35 AM EDT [address] [address] [address] Scan Report Signed Patient: Hodan Lopez MR#: [id number] : 1970 Acct:[id number] Age/Sex: 54 / F ADM Date: 10/14/24 Loc: [facility].ED Attending Dr: Ordering Physician: Sasha Almanza Date of Service: 10/14/24 Procedure(s): CT abdomen pelvis w IV con Accession Number(s): [id number] cc: Sasha Almanza; [facility] Report Number: [id number]: Total DLP = 503.00 mGy-cm EXAMINATION: CT [...] 10/14/24 0932 DD/ 0758 TD/TT: 10/14/24 0908 Night Warehouse Selector: Procedure Note Donotuseinterpreter, Image - 10/14/[address] [address] [address] Scan Report Signed Patient: Lianna Lopez#: [id number] : 1970Acct:[id number] Age/Sex: 54 / FADM Date: 10/14/24 Loc: [facility].ED Attending Dr: Ordering Physician: Sasha Almanza Date of Service: 10/14/24 Procedure(s): CT abdomen pelvis w IV con Accession Number(s): [id number] cc: Sasha Almanza; [facility] Report Number: [id number]: Total DLP = 503.00 mGy-cm EXAMINATION: CT [...] 10/14/24 0932 DD/ 0758 TD/TT: 10/14/24 0908 Night Warehouse Selector: [facility] External Provider IMG CT PROCEDURES Final Result * (ABNORMAL) POCT urinalysis dipstick manually resulted (10/11/2024 1:01 PM EDT) Pathologist [facility] Color, UA Yellow Clarity, UA Clear Glucose, UA 3+ 500+++ Bilirubin, UA Negative Ketones, UA Negative Spec Grav, UA 1.025 Blood, UA Positive(A) Negative, None Detected Comment:trace intact pH, UA 6.0 Protein, UA Negative Urobilinogen, UA 0.2 Leukocytes, UA Negative Negative, Rare, Trace Nitrite, UA Positive(A) Negative, None Detected Appearance, UA clear QC Media Lot # [id number] Lot# Expiration Date [id number] Urine 10/11/2024 1:01 PM EDT Lexi Mancera [facility] POINT OF CARE TEST ENTER/ EDIT ORDERABLES Final Result * Hepatitis C Antibody with Reflex to HCV, RNA, Quantitative, Real-Time PCR (09/20/2024 11:05 AM EDT) [facility] Hepatitis C Antibody Nonreactive Nonreactive [facility] Comment:Antibodies to HCV no t detected; does not exclude early acuteHCV infection. Blood Venous blood specimen / Unknown 09/20/2024 11:05 AM EDT 09/20/2024 1:43 PM EDT [facility] Man[facility] LAB BLOOD ORDERABLES Elaine l Result [facility] [address] [place] [phone] * HIV-1/2 Antigen and Antibodies, Fourth Generation, with Reflexes (09/20/2024 11:05 AM EDT) Pathologist [facility] HIV AB/AG Nonreactive Nonreactive [facility] Comment:HIV-1 p24 Ag and/or HIV-1/HIV-2 Ab not detected.A test result that is nonreactive does not exclude thepossibility of exposure to or infection with HIV-1 and/orHIV-2. Nonreactive results in this assay for individualswith prior exposure to HIV-1 and/or HIV-2 may be due toantigen and antibody levels that are below the limit ofdetection of this assay.The [employer] HIV Ag/Ab Combo assay result andsupplemental assay results should be interpreted inconjunction with the patient's clinical presentation,history and other laboratory results. If the results areinconsistent with clinical evidence, additional testing issuggested to confirm the result. Blood Venous blood specimen / Unknown 09/20/2024 11:05 AM EDT 09/20/2024 1:43 PM EDT us Lexi Mancera [facility] BLOOD ORDERABLES Elaine tiwari Result [facility] [address] [place] [phone] * BI Mammogram Screening Tomosynthesis Bilateral (07/21/2024 12:45 PM EDT) Anatomical Region Laterality Modality Breast Bilateral Mammography 07/21/2024 12:4 5 PM EDT Narrative 07/30/2024 2:26 PM EDT [address] [place] [address] Mammography Report Signed Patient: Hodan Lopez MR#: [id number] : 1970 Acct:[id number] Age/Sex: 54 / F ADM Date: 07/21/24 Loc: HO.MAMMO Attending Dr: Codie Quintero MD Ordering Physician: Codie Quintero MD Results: 2Benig n Findings Date of Service: 07/21/24 Follow Up: 1 Year From Orig ina Mammogram Procedure(s): MM tomosynthesis screening BI Accession Number(s): [id number] cc: Codie Quintero MD; Ana Luisa Bourne EXAMINATION: MM SCREENING DIGITAL BREAST TOMOSYNTHESIS, BILATERAL [...] 07/30/24 1424 DD/ 1245 TD/TT: 07/21/24 1254 Night Warehouse Selector: Procedure Note Donotuseinterpreter, Image - 07/30/2024 [facility] [address] [place], [place] [address] Mammography Report Signed Patient: Susana LopezR#: [id number] : 1970Acct:[id number] Age/Sex: 54 / FADM Date: 07/21/24 Loc: HO.MAMMO Attending Dr: Codie Quintero MD Ordering Physician: Codie Quintero MDResults: 2Benig n Findings Date of Service: 07/21/24Follow Up: 1 Year From Orig inal Mammogram Procedure(s): MM tomosynthesis screening BI Accession Number(s): [id number] cc: Codie Quintero MD; Ana Luisa Bourne QUILL WORKER EXAMINATION: MM SCREENING DIGITAL BREAST TOMOSYNTHESIS, BILATERAL [...] 07/30/24 1424 DD/ 1245 TD/TT: 07/21/24 1254 Night Warehouse Selector: [facility] External Provider IMG BI PROCEDURES Final Result * Hm Colonoscopy (01/16/2024 2:15 PM EST) Historical Provider HEALTH MAINTENANCE Final Result * HPV E6/E7 RFLX MARIBELL 16 18/45 (06/05/2021 3:35 PM EDT) HPV mRNA E6/E7 rflx Not Detected Not Detected [facility] Comment: Methodology: Wire Stockkeeper-Mediated Amplification This assay detects E6/E7 viral messenger RNA (mRNA) from 14 high-risk HPV types (16,18,31,33,35,39,45,51,52,56,58,59,66,68). The analytical performance characteristics of this assay have been determined by [employer]. The modifications have not been cleared or approved by the FDA. This assay has been validated pursuant to the CLIA regulations and is used for clinical purposes. For additional information, please refer to http://education.[place].BiolineRx/faq/NEC017w4 (This link if provided for information/ educational purposes only.) THIS TEST WAS PERFORMED AT: [employer] [address] [place] [address] [address] FLOOR,[place] [address] LEE VILLALPANDO MD 06/05/2021 3:35 PM EDT us Estela Hung HISTORICAL/NON ORDERABLE LABS Fi nal Result [facility] Anywhere [address] from Last 3 Months or Most Recently Relevant to Health Maintenance Insurance C3 [facility] STAND ADULT Care Teams Oracle Application Architect Relationship Specialty Start Date End Date Ana Luisa Bourne FNP [address] [place] [address] PCP - General Family Medicine 11/01/21 Priscilla Cody [address] [place] [address] Gastroenterology 11/21/24 Codie Quintero MD [address] [place] [address] Hematology and Oncology 11/21/24 Teodoro Palomino DPM [address] [place] [address] Podiatry 11/21/24 Manoj Locke MD [address] [place] [address] General Surgery 11/21/24 [facility] 02/17/24 [facility] Pie Cutter Mental Health 11/21/24 YOAN Cool (VNA) Home Monitoring Clinician 11/21/24
--- OUTSIDE RECORDS SUMMARY | 2024-12-29 20:00 | XMS_ITS | Encounter Summary ---
Author Organization [employer] Address 75 [facility] 7t [place] [address] Care Team Providers Care Classified Copy Control Clerk Name Role Phone Ana Luisa Bourne CELLAR PUMPER Primary Care Provider [phone] Geeta Zeng PharmD Unavailable Priscilla Cody Unavailable Codie Quintero MD Unavailable [phone] Teodoro Palomino DPM Unavailable Manoj Locke MD Unavailable Reason for Visit * Reason Comments Med Refill Encounter Details Date Type Department Care Team (Late st Contact Info) Description 12/31/2023 Refill [facility] [address] [place], [place] [phone] Keith Hernandez MD 230 [place], [place] [phone] Alcohol use disorder, severe, dependence (CMS/HCC) Social [...] documented as of this encounter Care Teams Classified Copy Control Clerk Relationship Specialty Start Date End Date Ana Luisa Bourne FNP [address] [place] [address] [place] [address] PCP - General Family Medicine 11/01/21 Geeta Zeng, Santosh [address] [place] [address] Pharmacist Internal Medicine 07/07/23 11/20/24 Priscilla Cody [address] [place] [address] Gastroenterology 11/21/24 Codie Quintero MD [address] [place] [address] Hematology and Oncology 11/21/24 Teodoro Palomino DPM [address] [place] [address] Podiatry 11/21/24 Manoj Locke MD [address] [address] General Surgery 11/21/24 [facility] Health 02/17/24 [facility] Spice Mixer Mental Health 11/21/24 YOAN Cool (VNA) Home Monitoring Clinician 11/21/24 documented as of this encounter
--- OUTSIDE RECORDS SUMMARY | 2024-12-29 20:00 | XMS_ITS | Encounter Summary ---
Author Organization [employer] Address 75 [facility] 7t [place] [address] Care Team Providers Care Music Industry Intern Name Role Phone Ana Luisa Bourne Primary Care Provider [phone] Geeta Zeng PharmD Unavailable Priscilla Cody Unavailable Codie Quintero MD Unavailable [phone] Teodoro Palomino DPM Unavailable Manoj Locke MD Unavailable Reason for Visit * Reason Onset Date Comments Nurse Triage 02/27/2023 Encounter Details Date Type Department Care Team (Late st Contact Info) Description 02/27/2023 Telephone [facility] & PEDS [address] [place], [place] [phone] Ana Luisa Bourne FNP 505 [place], [place] [phone] Nurse Triage Social History Tobacco Use Types [...] accepted this outcome Please contact pt at [phone] (optomechanical engineer needed) documented in this encounter Plan of Treatment Not on file documented as of this encounter Visit Diagnoses Not on filedocumented in this encounter Additional Health Concerns Assessment Noted Time PHQ-9 Depression Total Score: 0 03/22/19 23 2:05 PM EST documented as of this encounter Care Teams Music Industry Intern Relationship Specialty Start Date End Date Ana Luisa Bourne FNP 230 [place] [address] PCP - General Family Medicine 11/01/21 Geeta Zeng PharmD 230 [place] [address] Pharmacist Internal Medicine 07/07/23 11/20/24 Priscilla Cody [address] [place] [address] Gastroenterology 11/21/24 Codie Quintero MD [address] [place] [address] Hematology and Oncology 11/21/24 Teodoro Palomino DPM [address] [place] [address] Podiatry 11/21/24 Manoj Locke MD [address] [place] [address] General Surgery 11/21/24 [facility] Health 02/17/24 [facility] Employment Director Mental Health 11/21/24 YOAN Cool (VNA) Home Monitoring Clinician 11/21/24 documented as of this encounter
--- OUTSIDE RECORDS SUMMARY | 2024-12-29 20:01 | XMS_ITS | Encounter Summary ---
Author Organization [facility] Address 399 [facility] [address] [place] [address] Phone Care Team Providers Care Elementary Ell Teacher Name Role Phone Sonali Harper MD Primary Care Provider [phone] Encounter Details Date Type Department Care Team (Late st Contact Info) Description 07/11/2020 Ancillary Orders [facility],Outside Imaging 30 [place] [address] System, Provider [place] In, [place] [address] Social History Tobacco Use Types Packs/Day Years [...] on filedocumented in this encounter Care Teams Elementary Ell Teacher Relationship Specialty Start Date End Date Sonali Harper MD 230 [facility] 1 [place] [address] [email or web address], [email or web address] PCP - General Family Medicine 07/07/20 documented as of this encounter Additional Source Comments The information contained in this document represents components of the legal health record. It is not the complete legal health record.[facility]
--- OUTSIDE RECORDS SUMMARY | 2024-12-29 20:01 | XMS_ITS | Encounter Summary ---
Author Organization [facility] Address 399 [facility] [address] [place] [address] Phone Care Team Providers Care Garment Examiner Name Role Phone Sonali Harper MD Primary Care Provider [phone] Encounter Details Date Type Department Care Team (Late st Contact Info) Description 07/11/2020 Ancillary Orders [facility],Outside Imaging 30 [place] [address] System, Provider Not In, [place] [address] Social History Tobacco Use Types Packs/Day Years [...] on filedocumented in this encounter Care Teams Garment Examiner Relationship Specialty Start Date End Date Sonali Harper MD [address] [place] [address] [email or web address] PCP - General Family Medicine 07/07/20 documented as of this encounter Additional Source Comments The information contained in this document represents components of the legal health record. It is not the complete legal health record.[facility]
--- OUTSIDE RECORDS SUMMARY | 2024-12-29 20:01 | XMS_ITS | Encounter Summary ---
Author Organization [facility] Address 399 [facility] [address] [place] [address] Phone Care Team Providers Care Junior Sales Representative Name Role Phone Sonali Harper MD Primary Care Provider [phone] Encounter Details Date Type Department Care Team (Late st Contact Info) Description 07/11/2020 Ancillary Orders [facility],Outside Imaging 30 [place] [address] System, Provider [place] In, [place] [address] Social History Tobacco Use Types Packs/Day Years [...] on filedocumented in this encounter Care Teams Junior Sales Representative Relationship Specialty Start Date End Date Sonali Harper MD 230 [facility] 1 [place] [address] [email or web address] PCP - General Family Medicine 07/07/20 documented as of this encounter Additional Source Comments The information contained in this document represents components of the legal health record. It is not the complete legal health record.[facility]
--- OUTSIDE RECORDS SUMMARY | 2024-12-29 20:01 | XMS_ITS | Clinical Summary ---
Author Organization [facility] Address 399 [facility] [address] [place] [address] Phone Care Team Providers Care Rail Car Painter/Sandblaster Name Role Phone Sonali Harper MD Primary Care Provider [phone] Allergies No known active allergies Medications atorvastatin (LIPITOR) 80 MG tablet Take 80 mg by mouth daily. Active docusate sodium (COLACE) 100 MG capsule Take 100 mg by mouth 2 (two) times a day. Active ferrous sulfate 325 mg (65 mg tuscarora iron) tablet Take 325 mg by mouth [...] ACO C3 ACO C3 ACO Care Teams Rail Car Painter/Sandblaster Relationship Specialty Start Date End Date Sonali Harper MD [address] [place] [address] [email or web address] PCP - General Family Medicine 07/07/20 Additional Source Comments The information contained in this document represents components of the legal health record. It is not the complete legal health record.[facility]
--- OUTSIDE RECORDS SUMMARY | 2024-12-29 20:01 | XMS_ITS | Encounter Summary ---
Author Organization [employer] Address 75 [facility] 7t [place] [address] Care Team Providers Care Master Craftsman Name Role Phone Ana Luisa Bourne MINE EXPLORATION ENGINEER Primary Care Provider Geeta Zeng PharmD Unavailable [phone] Priscilla Cody Unavailable Codie Quintero MD Unavailable [phone] Teodoro Palomino DPM Unavailable Manoj Locke MD Unavailable Reason for Visit * Reason Comments Med Refill Encounter Details Date Type Department Care Team (Late st Contact Info) Description 07/07/2024 Refill [facility] CHC MED & PEDS 505 [place], [place] [phone] Cleo Malone MD 505 [place], [place] [phone] Primary hypertension Social History Tobacco Use Types [...] documented as of this encounter Care Teams Master Craftsman Relationship Specialty Start Date End Date Ana Luisa Bourne FNP [address] [place] [address] PCP - General Family Medicine 11/01/21 Geeta Zeng, Santosh 230 [place] [address] Pharmacist Internal Medicine 07/07/23 11/20/24 Priscilla Cody [address] [place] [address] Gastroenterology 11/21/24 Codie Quintero MD [address] [place] [address] Hematology and Oncology 11/21/24 Teodoro Palomino DPM [address] [place] [address] Podiatry 11/21/24 Manoj Locke MD [address] [place] [address] General Surgery 11/21/24 [facility] 02/17/24 [facility] Cushion Stuffer Mental Health 11/21/24 YOAN Cool (VNA) Home Monitoring Clinician 11/21/24 documented as of this encounter
--- OUTSIDE RECORDS SUMMARY | 2024-12-29 20:01 | XMS_ITS | Encounter Summary ---
Author Organization [facility] Address 399 [facility] [address] [place] [address] Phone Care Team Providers Care Electron Beam Photo Mask Technician Name Role Phone Sonali Harper MD Primary Care Provider [phone] Encounter Details Date Type Department Care Team (Late st Contact Info) Description 07/11/2020 Ancillary Orders [facility],Outside Imaging 30 [place] [address] System, Provider Not In, [place] [address] Social History Tobacco Use Types Packs/Day Years [...] on filedocumented in this encounter Care Teams Electron Beam Photo Mask Technician Relationship Specialty Start Date End Date Sonali Harper MD [address] [place] [address] [email or web address] PCP - General Family Medicine 07/07/20 documented as of this encounter Additional Source Comments The information contained in this document represents components of the legal health record. It is not the complete legal health record.[facility]
--- OUTSIDE RECORDS SUMMARY | 2024-12-29 20:01 | XMS_ITS | Encounter Summary ---
Author Organization [facility] Address 399 [facility] [address] [place] [address] Phone Care Team Providers Care Inspector Plating Name Role Phone Sonali Harper MD Primary Care Provider [phone] Encounter Details Date Type Department Care Team (Late st Contact Info) Description 07/11/2020 Ancillary Orders [facility],Outside Imaging 30 [place] [address] System, Provider [place] In, [place] [address] Social History Tobacco Use Types Packs/Day Years [...] on filedocumented in this encounter Care Teams Inspector Plating Relationship Specialty Start Date End Date Sonali Harper MD [address] [place] [address] [email or web address] PCP - General Family Medicine 07/07/20 documented as of this encounter Additional Source Comments The information contained in this document represents components of the legal health record. It is not the complete legal health record.[facility]
--- OUTSIDE RECORDS SUMMARY | 2024-12-29 20:01 | XMS_ITS | Encounter Summary ---
Author Organization [facility] Address 399 [facility] [address] [place] [address] Phone Care Team Providers Care Senior Procurement Manager Name Role Phone Sonali Harper MD Primary Care Provider Encounter Details Date Type Department Care Team (Late st Contact Info) Description 07/11/2020 Ancillary Orders [facility],Outside Imaging 30 [place] [address] System, Provider [place] In, [place] [address] Social History Tobacco Use Types Packs/Day Years [...] filedocumented in this encounter Care Teams Senior Procurement Manager Relationship Specialty Start Date End Date Sonali Harper MD [address] [place] [address] [email or web address] PCP - General Family Medicine 07/07/20 documented as of this encounter Additional Source Comments The information contained in this document represents components of the legal health record. It is not the complete legal health record.[facility]
--- OUTSIDE RECORDS SUMMARY | 2024-12-29 20:01 | XMS_ITS | Encounter Summary ---
Author Organization [facility] Address 399 [facility] [address] [place] [address] Phone Care Team Providers Care Oil Heater Operator Name Role Phone Sonali Harper MD Primary Care Provider [phone] Encounter Details Date Type Department Care Team (Late st Contact Info) Description 07/11/2020 Ancillary Orders [facility],Outside Imaging 30 [place] [address] System, Provider Not In, [place] [address] Social History Tobacco Use Types Packs/Day Years [...] on filedocumented in this encounter Care Teams Oil Heater Operator Relationship Specialty Start Date End Date Sonali Harper MD [address] [place] [address] [email or web address] PCP - General Family Medicine 07/07/20 documented as of this encounter Additional Source Comments The information contained in this document represents components of the legal health record. It is not the complete legal health record.[facility]
--- OUTSIDE RECORDS SUMMARY | 2024-12-29 20:01 | XMS_ITS | Encounter Summary ---
Author Organization [employer] Address [address] [facility] [address] 7t [place] [address] Care Team Providers Care Civil Celebrant Name Role Phone Ana Liusa Bourne Primary Care Provider Geeta Zeng PharmD Unavailable Priscilla Cody Unavailable Codie Quintero MD Unavailable [phone] Teodoro Palomino DPM Unavailable [phone] Manoj Locke MD Unavailable Reason for Visit * Reason Comments Med Refill Encounter Details Date Type Department Care Team (Late st Contact Info) Description 07/08/2024 Refill [facility] 230 [place] [address] Ana Luisa Bourne FNP [address] [place], [place] [phone] Other hyperlipidemia Social History Tobacco Use Types [...] documented as of this encounter Care Teams Civil Celebrant Relationship Specialty Start Date End Date Ana Luisa Bourne FNP [address] [place] [address] PCP - General Family Medicine 11/01/21 Geeta Zeng, Santosh 230 [place] [address] Pharmacist Internal Medicine 07/07/23 11/20/24 Priscilla Cody [address] [place] [address] Gastroenterology 11/21/24 Codie Quintero MD [address] [place] [address] Hematology and Oncology 11/21/24 Teodoro Palomino DPM [address] [place] [address] Podiatry 11/21/24 Manoj Locke MD [address] [place] [address] General Surgery 11/21/24 [facility] 02/17/24 [facility] Nurse School Mental Health 11/21/24 YOAN Cool (VNA) Home Monitoring Clinician 11/21/24 documented as of this encounter
--- OUTSIDE RECORDS SUMMARY | 2024-12-29 20:01 | XMS_ITS | Encounter Summary ---
Author Organization [facility] Address 399 [facility] [address] [place] [address] Phone Care Team Providers Care Aurist Name Role Phone Sonali Harper MD Primary Care Provider Encounter Details Date Type Department Care Team (Late st Contact Info) Description 07/11/2020 Ancillary Orders [facility],Outside Imaging 30 [place] [address] System, Provider Not In, [place] [address] Social History Tobacco Use Types Packs/Day Years [...] on filedocumented in this encounter Care Teams Aurist Relationship Specialty Start Date End Date Sonali Harper MD 230 [facility] 1 [place] [address] [email or web address] PCP - General Family Medicine 07/07/20 documented as of this encounter Additional Source Comments The information contained in this document represents components of the legal health record. It is not the complete legal health record.[facility]
--- OUTSIDE RECORDS SUMMARY | 2024-12-29 20:01 | XMS_ITS | Encounter Summary ---
Author Organization [facility] Address 399 [facility] [address] [place] [address] Phone Care Team Providers Care Cheese Pancake Roller Name Role Phone Sonali Harper MD Primary Care Provider [phone] Encounter Details Date Type Department Care Team (Late st Contact Info) Description 07/11/2020 Ancillary Orders [facility],Outside Imaging 30 [place] [address] System, Provider [place] In, [place] [address] Social History Tobacco Use Types Packs/Day Years [...] on filedocumented in this encounter Care Teams Cheese Pancake Roller Relationship Specialty Start Date End Date Sonali Harper MD 230 [facility] 1 [place] [address] [email or web address] PCP - General Family Medicine 07/07/20 documented as of this encounter Additional Source Comments The information contained in this document represents components of the legal health record. It is not the complete legal health record.[facility]
--- OUTSIDE RECORDS SUMMARY | 2024-12-29 20:01 | XMS_ITS | Encounter Summary ---
Author Organization [facility] Address 399 [facility] [address] [place] [address] Phone Care Team Providers Care Fourth Hand Name Role Phone Sonali Harper MD Primary Care Provider [phone] Encounter Details Date Type Department Care Team (Late st Contact Info) Description 07/11/2020 Ancillary Orders [facility],Outside Imaging 30 [place] [address] System, Provider [place] In, [place] [address] Social History Tobacco Use Types Packs/Day Years [...] on filedocumented in this encounter Care Teams Fourth Hand Relationship Specialty Start Date End Date Sonali Harper MD 230 [facility] 1 [place] [address] [email or web address] PCP - General Family Medicine 07/07/20 documented as of this encounter Additional Source Comments The information contained in this document represents components of the legal health record. It is not the complete legal health record.[facility]
--- OUTSIDE RECORDS SUMMARY | 2024-12-29 20:01 | XMS_ITS | Encounter Summary ---
Author Organization [facility] Address 399 [facility] [address] [place] [address] Phone Care Team Providers Care Loading Dock Hand Name Role Phone Sonali Harper MD Primary Care Provider [phone] Encounter Details Date Type Department Care Team (Late st Contact Info) Description 07/11/2020 Ancillary Orders [facility],Outside Imaging 30 [place] [address] System, Provider [place] In, [place] [address] Social History Tobacco Use Types Packs/Day Years [...] on filedocumented in this encounter Care Teams Loading Dock Hand Relationship Specialty Start Date End Date Sonali Harper MD 230 [facility] 1 [place] [address] [email or web address] PCP - General Family Medicine 07/07/20 documented as of this encounter Additional Source Comments The information contained in this document represents components of the legal health record. It is not the complete legal health record.[facility]
--- OUTSIDE RECORDS SUMMARY | 2024-12-29 20:01 | XMS_ITS | Encounter Summary ---
Author Organization [facility] Address [address] [facility] [address] [place] [address] Phone Care Team Providers Care Content Coordinator Name Role Phone Sonali Harper MD Primary Care Provider [phone] Encounter Details Date Type Department Care Team (Late st Contact Info) Description 07/11/2020 Ancillary Orders [facility],Outside Imaging [address] [place] [address] System, Provider Not In, [place] [address] Social History Tobacco Use Types Packs/Day Years [...] on filedocumented in this encounter Care Teams Content Coordinator Relationship Specialty Start Date End Date Sonali Harper MD [address] [facility] 1 [place] [address] [email or web address] PCP - General Family Medicine 07/07/20 documented as of this encounter Additional Source Comments The information contained in this document represents components of the legal health record. It is not the complete legal health record.[facility]
--- OUTSIDE RECORDS SUMMARY | 2024-12-29 20:01 | XMS_ITS | Clinical Summary ---
Author Organization [facility] Address [address] [place] [address] Phone Care Team Providers Care Mixing Engineer Name Role Phone Ana Luisa Bourne RN [...] PM EDT Office Visit Orthopedic Surgery - [address] [address] Teodoro Palomino, DPM Dermatophytosis of nail (Primary Dx); Tinea pedis of both feet; Acquired hammer toe of right foot; Hammer toe of left foot; Type II diabetes mellitus with peripheral circulatory disorder ([facility] V24, CMS/[facility] V28); Diabetic mononeuropathy simplex (CMS/HCC V24, CMS/[facility] V28); Corns and callosities; Pain in [...] PM EST Office Visit Orthopedic Surgery - [place] [address] [address] Teodoro Palomino, ROXANN [address] [address] Health Maintenance Due Date Last [...] topic Insurance MEDICAID - [place] Care Teams Mixing Engineer Relationship Specialty Start Date End Date Ana Luisa Bourne RN [address] [address] PCP - General 04/23/23
== END 2024-12-29 14:15 | disposition home or self-care (01) ==
LOC: HO.HGS 13:53
PROVIDERS: PCP Registered Nurse; Visit Provider Surgery
DX: K43.2 Incisional hernia without obstruction or gangrene (principal)
CPT/HCPCS: 99213

== ENCOUNTER → 2024-12-29 13:52 | Outpatient (BNVA) | payer MEDICAID, SELFPAY | PROVIDERS: PCP Registered Nurse; Visit Provider Surgery | DX: Z01.818 Encounter for other preprocedural examination (principal); K43.2 Incisional hernia without obstruction or gangrene | CPT/HCPCS: 99212 ==

== ENCOUNTER 2025-01-25 14:11 | Outpatient (REF) | payer MEDICAID, SELFPAY ==
--- NOTE | ~2025-01-25 | CT_ITS ---
EXAMINATION: CT ENTEROGRAPHY ABDOMEN AND PELVIS WITH CONTRAST CLINICAL INFORMATION: R19.5 - Other fecal abnormalities COMPARISON: Previous CT of the abdomen and pelvis most recent October 2024 and small bowel follow-through October 2024 TECHNIQUE: Study performed with oral VoLumen (1350 mL) and 480 mL of water to distend the abdomen. The patient was injected with 85 mL Omnipaque 350 intravenous contrast which was administered without adverse effect. Coronal and sagittal reformatted images were obtained at the technologist's workstation. This CT examination was performed using dose optimization techniques as appropriate, variously including the following: *Automated exposure control *Adjustment of mA and/or kV according to patient size (this includes techniques or standardized protocols for targeted exams where dose is matched to indication/reason for exam; i.e. extremities or head) *Use of iterative reconstruction technique FINDINGS: GASTROINTESTINAL FINDINGS: Stomach: Well-distended. Increased soft tissue in the antrum.This may be related to contraction/peristalsis. Small and large intestine: Postsurgical changes following right hemicolectomy. The transverse colon is underdistended and is it is difficult to exclude areas of mild wall thickening/colitis. Increased stool in the colon suggestive of mild constipation. Small and large bowel are otherwise normal. No hyperemia, wall edema, mass, fistula or tethered loops of bowel seen. Mesenteric edema seen October 2024 is no longer seen. Additional findings: No abnormal enhancement of the vasa recta or significant mesenteric or retroperitoneal lymphadenopathy is seen. No abdominal abscess or fistulous tract demonstrated. ABDOMINAL AND PELVIC CT FINDINGS: Liver, gallbladder, biliary tract: Normal Pancreas: Normal Spleen: Normal Adrenal glands and kidneys: Normal adrenal glands. Small 1 cm low-attenuation lesion exophytic to the posterior upper pole of the left kidney. This is similar to prior exam and probably represents a cyst. Ureters and bladder: Bladder not optimally distended. There may be diffuse circumferential bladder wall thickening. 1 cm pedunculated or exophytic partially calcified uterine fibroid adjacent to the uterine fundus. Uterus and adnexa are otherwise unremarkable. Lymphovascular structures: Left pelvic varices. Bones: Mild degenerative changes at L5-S1 and the right hip. Umbilical and supraumbilical hernias containing fat. Lung bases: Lung bases are clear. CT/CT enterography IMPRESSION: Postsurgical changes following right hemicolectomy. Question mild colitis of the transverse colon with areas of wall thickening versus changes due to underdistention. Constipation. Small and large bowel otherwise normal. Previously seen mesenteric edema October 2024 no longer seen. Increased soft tissue in the distal stomach. This may be related to peristalsis/contraction. Left pelvic varices. Small exophytic or pedunculated fundal uterine fibroid. Bladder not optimally distended. There may be mild circumferential bladder wall thickening. This may represent cystitis. Correlate with urinalysis. Electronically signed by: Fernanda Brower MD 01/25/2025 04:19 PM EST
[2025-01-25] MEDS: iohexoL 350 MG/ML 100 ML INFUS..BTL 85 ML IV (15:53)
[2025-01-25] MEDS: Sorbitol/Mannit/Xanth Imaging 500 ML LIQUID 1500 ML PO (15:57)
[2025-01-25 17:33] LABS: Creatinine POC 0.9 mg/dL (0.5-1.4); GFR POC 60
--- OUTSIDE RECORDS SUMMARY | 2025-01-26 09:31 | XMS_ITS | Encounter Summary ---
Author Organization [employer] Address [address] [facility] [address] 7[address] [place] [address] Care Team Providers Care Gold Prospector Name Role Phone Ana Luisa Bourne GIUSEPPE Primary Care Provider [phone] Priscilla Cody Unavailable Codie Quintero MD Unavailable [phone] Teodoro Palomino DPSolis Unavailable [phone] Manoj Locke MD Unavailable [phone] Encounter Details Date Type Department Care Team (Late st Contact Info) Description 01/25/2025 Orders Only [facility] External Provider, [facility] Social History Tobacco Use Types Packs/Day Years [...] Author Hemoglobin A1c < 7 Result Component 13.7(11/20/19 25 10:20 AM EDT) No Geeta Zeng PharmAnny Quit using tobacco (cigarettes, smokeless, etc) Tobacco Use No Geeta Zeng PharmD Help patients manage their type 2 diabetes Care Plan Help patients manage their type 2 diabetes No Roopa Kerns Weekly blood pressure task Care Plan Weekly blood pressure task No Roopa Kerns Help patients manage their type 2 diabetes Care Plan Help patients manage their type 2 diabetes No Roopa Kerns Patient has chronic kidney disease Care Plan Patient has chronic kidney disease No Roopa Kerns Weekly blood pressure task Care Plan Weekly blood pressure task No Roopa Kerns Patient has chronic kidney disease Care Plan Patient has chronic kidney disease No Roopa Kerns documented as of this encounter Procedures Procedure Name Priority Date/Time Associated Diagnosis Comments CT ENTEROGRAPHY ABDOMEN PELVIS W CONTRAST Routine 01/25/2025 3:36 PM EST POCT CREATININE GFR Routine 01/25/2025 2 :39 PM EST documented in this encounter Results * CT Enterography Abdomen Pelvis w/ Contrast (01/25/2025 3:36 PM EST) Anatomical Region Laterality Modality Computed Tomogra phy 01/25/2025 3:36 PM EST Narrative 01/25/2025 4:22 PM EST [address] [address] [address] Scan Report Signed Patient: Hodan Lopez MR#: [id number] : 1970 Acct:[id number] Age/Sex: 54 / F ADM Date: 01/25/25 Loc: HO.CT Attending Dr: Priscilla CHIN-MARYSOL Ordering Physician: Priscilla Cody Date of Service: 01/25/25 Procedure(s): CT enterography Accession Number(s): [id number] cc: Priscilla Cody-MARYSOL; Ana Luisa Bourne [facility] Report Number: [id number]: Total DLP = 354.00 mGy-cm Reason for Exam: R19.5 - Other fecal abnormalities EXAMINATION: CT ENTEROGRAPHY ABDOMEN AND PELVIS WITH CONTRAST CLINICAL INFORMATION: R19.5 - Other fecal abnormalities COMPARISON: Previous CT of the abdomen and pelvis most recent October 2024 and small bowel follow-through October 2024 TECHNIQUE: Study performed with oral VoLumen (1350 mL) and 480 mL of water to distend the abdomen. The patient was injected with 85 mL Omnipaque 350 intravenous contrast which was administered without adverse effect. Coronal and sagittal reformatted images were obtained at the technologist's workstation. This CT examination was performed using dose optimization techniques as appropriate, variously including the following: *Automated exposure control *Adjustment of mA and/or kV according to patient size (this includes techniques or standardized protocols for targeted exams where dose is matched to indication/reason for exam; i.e. extremities or head) *Use of iterative reconstruction technique FINDINGS: GASTROINTESTINAL FINDINGS: Stomach: Well-distended. Increased soft tissue in the antrum.This may be related to contraction/peristalsis. Small and large intestine: Postsurgical changes following right hemicolectomy. The transverse colon is underdistended and is it is difficult to exclude areas of mild wall thickening/colitis. Increased stool in the colon suggestive of mild constipation. Small and large bowel are otherwise normal. No hyperemia, wall edema, mass, fistula or tethered loops of bowel seen. Mesenteric edema seen October 2024 is no longer seen. Additional findings: No abnormal enhancement of the vasa recta or significant mesenteric or retroperitoneal lymphadenopathy is seen. No abdominal abscess or fistulous tract demonstrated. ABDOMINAL AND PELVIC CT FINDINGS: Liver, gallbladder, biliary tract: Normal Pancreas: Normal Spleen: Normal Adrenal glands and kidneys: Normal adrenal glands. Small 1 cm low-attenuation lesion exophytic to the posterior upper pole of the left kidney. This is similar to prior exam and probably represents a cyst. Ureters and bladder: Bladder not optimally distended. There may be diffuse circumferential bladder wall thickening. 1 cm pedunculated or exophytic partially calcified uterine fibroid adjacent to the uterine fundus. Uterus and adnexa are otherwise unremarkable. Lymphovascular structures: Left pelvic varices. Bones: Mild degenerative changes at L5-S1 and the right hip. Umbilical and supraumbilical hernias containing fat. Lung bases: Lung bases are clear. CT/CT enterography IMPRESSION: Postsurgical changes following right hemicolectomy. Question mild colitis of the transverse colon with areas of wall thickening versus changes due to underdistention. Constipation. Small and large bowel otherwise normal. Previously seen mesenteric edema October 2024 no longer seen. Increased soft tissue in the distal stomach. This may be related to peristalsis/contraction. Left pelvic varices. Small exophytic or pedunculated fundal uterine fibroid. Bladder not optimally distended. There may be mild circumferential bladder wall thickening. This may represent cystitis. Correlate with urinalysis. Electronically signed by: Fernanda Brower MD 01/25/2025 04:19 PM EST Dictated By: Fernanda Brower MD Signed By: <Electronically signed by Fernanda Brower MD in OV> 01/25/25 1616 DD/ 1536 TD/TT: 01/25/25 1556 Hydro Operator: DEMETRIUS Procedure Note Donotuseinterpreter, Image - 01/25/[address] [place] [address] [address] Scan Report Signed Patient: Lianna Lopez#: [id number] : 1970Acct:[id number] Age/Sex: 54 / FADM Date: 01/25/25 Loc: HO.CT Attending Dr: Priscilla Cody PERINATAL TECHNICIAN- Ordering Physician: Priscilla Cody PERINATAL TECHNICIAN- Date of Service: 01/25/25 Procedure(s): CT enterography Accession Number(s): [id number] cc: Priscilla Cody [facility]-; Ana Luisa Bourne [facility] Report Number: [id number]: Total DLP = 354.00 mGy-cm Reason for Exam: R19.5 - Other fecal abnormalities EXAMINATION: CT ENTEROGRAPHY ABDOMEN AND PELVIS WITH CONTRAST CLINICAL INFORMATION: R19.5 - Other fecal abnormalities COMPARISON: Previous CT of the abdomen and pelvis most recent October 2024 and small bowel follow-through October 2024 TECHNIQUE: Study performed with oral VoLumen (1350 mL) and 480 mL of water to distend the abdomen. The patient was injected with 85 mL Omnipaque 350 intravenous contrast which was administered without adverse effect. Coronal and sagittal reformatted images were obtained at the technologist's workstation. This CT examination was performed using dose optimization techniques as appropriate, variously including the following: *Automated exposure control *Adjustment of mA and/or kV according to patient size (this includes techniques or standardized protocols for targeted exams where dose is matched to indication/reason for exam; i.e. extremities or head) *Use of iterative reconstruction technique FINDINGS: GASTROINTESTINAL FINDINGS: Stomach: Well-distended. Increased soft tissue in the antrum.This may be related to contraction/peristalsis. Small and large intestine: Postsurgical changes following right hemicolectomy. The transverse colon is underdistended and is it is difficult to exclude areas of mild wall thickening/colitis. Increased stool in the colon suggestive of mild constipation. Small and large bowel are otherwise normal. No hyperemia, wall edema, mass, fistula or tethered loops of bowel seen. Mesenteric edema seen October 2024 is no longer seen. Additional findings: No abnormal enhancement of the vasa recta or significant mesenteric or retroperitoneal lymphadenopathy is seen. No abdominal abscess or fistulous tract demonstrated. ABDOMINAL AND PELVIC CT FINDINGS: Liver, gallbladder, biliary tract: Normal Pancreas: Normal Spleen: Normal Adrenal glands and kidneys: Normal adrenal glands. Small 1 cm low-attenuation lesion exophytic to the posterior upper pole of the left kidney. This is similar to prior exam and probably represents a cyst. Ureters and bladder: Bladder not optimally distended. There may be diffuse circumferential bladder wall thickening. 1 cm pedunculated or exophytic partially calcified uterine fibroid adjacent to the uterine fundus. Uterus and adnexa are otherwise unremarkable. Lymphovascular structures: Left pelvic varices. Bones: Mild degenerative changes at L5-S1 and the right hip. Umbilical and supraumbilical hernias containing fat. Lung bases: Lung bases are clear. CT/CT enterography IMPRESSION: Postsurgical changes following right hemicolectomy. Question mild colitis of the transverse colon with areas of wall thickening versus changes due to underdistention. Constipation. Small and large bowel otherwise normal. Previously seen mesenteric edema October 2024 no longer seen. Increased soft tissue in the distal stomach. This may be related to peristalsis/contraction. Left pelvic varices. Small exophytic or pedunculated fundal uterine fibroid. Bladder not optimally distended. There may be mild circumferential bladder wall thickening. This may represent cystitis. Correlate with urinalysis. Electronically signed by: Fernanda Brower MD 01/25/2025 04:19 PM EST Dictated By: Fernanda Brower MD Signed By: <Electronically signed by Fernanda Brower MD in OV> 01/25/25 1619 DD/ 1536 TD/TT: 01/25/25 1556 Hydro Operator: DEMETRIUS [facility] External Provider IMG CT PROCEDURES Final Result * POCT Creatinine GFR (01/25/2025 2:39 PM EST) POCT Creatinine 0.9 0.5 - 1.4 mg/dL [facility] GFR POC 60 [facility] Comment:Chronic Kidney Disea se: Estimated GFR < 60 mL/min/[id number] Kidney Disease: Estimated GFR < 15 mL/min/1.73m2 01/25/2025 2:39 PM EST 01/25/2025 5:31 PM EST Narrative [facility] - 01/25/2025 5:33 PM EST [id number] Generic External Data Provider LAB POINT OF CARE TEST DOCKED DEVICE ORDERABLES Final Result [facility] [address] [place] [address] [phone] documented in this encounter Visit Diagnoses Not on filedocumented in this encounter Additional Health Concerns Active Problems Noted Date Diagnosed Date Help patients manage their type 2 diabetes 01/24 Weekly blood pressure task 01/24/2025 Help patients manage their type 2 diabetes 01/24 Patient has chronic kidney disease 01/24/2025 Weekly blood pressure task 01/24/2025 Patient has chronic kidney disease 01/24/2025 Assessment Noted Time PHQ-9 Depression Total Score: 17 025 11:17 AM EDT documented as of this encounter Care Teams Gold Prospector Relationship Specialty Start Date End Date Ana Luisa Bourne FNP [address] [place] [address] PCP - General Family Medicine 11/01/21 Priscilla Cody [address] [place] [address] 3rd [place] [address] Gastroenterology 11/21/24 Codie Quintero MD [address] [place] [address] Hematology and Oncology 11/21/24 Teodoro Palomino DPM [address] [place] [address] Podiatry 11/21/24 Manoj Locke MD [address] 3rd Floor [place] [address] General Surgery 11/21/24 [facility] Health 02/17/24 [facility] Rough Planer Tender Mental Health 11/21/24 YOAN Cool ([facility]) Home Monitoring Clinician 11/21/24 documented as of this encounter
--- OUTSIDE RECORDS SUMMARY | 2025-01-26 09:31 | XMS_ITS | Encounter Summary ---
Author Organization [employer] Address [address] [facility] 7t [place] [address] Care Team Providers Care Packaging Design Engineer Name Role Phone Ana Luisa Bourne Primary Care Provider Priscilla Cody Unavailable Codie Quintero MD Unavailable [phone] Teodoro Palomino DPSolis Unavailable [phone] Manoj Locke MD Unavailable Reason for Visit * Reason Onset Date Comments Med Refill 01/24/2025 Encounter Details Date Type Department Care Team (Late st Contact Info) Description 01/24/2025 Refill [facility] [address] [place], [place] [phone] Ana Luisa Bourne FNP [address] [place], [place] [phone] Type 2 diabetes mellitus without complication, with long-term current use of insulin ([facility]) Social History Tobacco Use Types Packs/Day Years [...] encounter Miscellaneous Notes * Telephone Encounter - Sun Jama LPN - 01/24/2025 3:48 PM EST Last seen 11/19/24. * Telephone Encounter - Roopa Meza - 01/24/2025 3:44 PM EST TC from pt requesting medication refill. Medications needing refill : insulin lispro protamine-insulin lispro (HumaLOG MIX 75/25 KWIKPEN) (75-25) 100 UNIT/ML injection To be sent to: [facility] [address] documented in this encounter Plan of Treatment Not on file documented as of this encounter Goals Goal Patient Goal Type Associated Problems Recent Progress Patient-Stated? Author Hemoglobin A1c < 7 Result Component 13.7(11/20/19 10:20 AM EDT) No Geeta Zeng, PharmD Quit using tobacco (cigarettes, smokeless, etc) [...] Roopa Kerns documented as of this encounter Visit Diagnoses Diagnosis Type 2 diabetes mellitus without complication, with long-term current use of insulin (HCC) documented in this encounter Additional Health Concerns Active [...] documented as of this encounter Care Teams Packaging Design Engineer Relationship Specialty Start Date End Date Ana Luisa Bourne FNP [address] [place] [address] PCP - General Family Medicine 11/01/21 Priscilla Cody [address] [place] [address] [address] [place] [address] Gastroenterology 11/21/24 Codie Quintero MD [address] [place] [address] Hematology and Oncology 11/21/24 Teodoro Palomino DPM [address] [place] [address] Podiatry 11/21/24 Manoj Locke MD [address] [place] [address] 3rd [place] [address] General Surgery 11/21/24 [facility] 02/17/24 [facility] Ic Design Manager Mental Health 11/21/24 YOAN Cool ([facility]) Home Monitoring Clinician 11/21/24 documented as of this encounter
--- OUTSIDE RECORDS SUMMARY | 2025-01-26 09:31 | XMS_ITS | Encounter Summary ---
Author Organization [employer] Address [address] [facility] 7t [place] [address] Care Team Providers Care Perl Programmer Name Role Phone Ana Luisa Bourne Primary Care Provider Geeta Zeng PharmD Unavailable Priscilla Cody Unavailable Codie Quintero MD Unavailable [phone] Teodoro Palomino DPM Unavailable [phone] Manoj Locke MD Unavailable [phone] Reason for Visit * Reason Comments Med Refill Encounter Details Date Type Department Care Team (Late st Contact Info) Description 05/17/2022 Refill [facility] MED[facility] [address] [place] [address] Ana Luisa Bourne FNP [address] [place], [place] [phone] Social History Tobacco Use Types Packs/Day Years [...] documented as of this encounter Care Teams Perl Programmer Relationship Specialty Start Date End Date Ana Luisa oBurne FNP [address] [place] [address] PCP - General Family Medicine 11/01/21 Geeta Zeng, DaphneD [address] [place] [address] Pharmacist Internal Medicine 07/07/23 11/20/24 Priscilla Cody [address] [place] [address] Gastroenterology 11/21/24 Codie Quintero MD [address] [place] [address] Hematology and Oncology 11/21/24 Teodoro Palomino DPM [address] [place] [address] Podiatry 11/21/24 Manoj Locke MD [address] [place] [address] General Surgery 11/21/24 [facility] 02/17/24 [facility] Regional Operations Director Mental Health 11/21/24 YOAN Cool (A) Home Monitoring Clinician 11/21/24 documented as of this encounter
--- OUTSIDE RECORDS SUMMARY | 2025-01-26 09:31 | XMS_ITS | Encounter Summary ---
Author Organization [employer] Address [address] [facility] 7t [place] [address] Care Team Providers Care Regulatory Affairs Specialist Name Role Phone Ana Luisa Bourne BLOW DOWN HELPER Primary Care Provider Geeta Zeng PharmD Unavailable Priscilla Cody Unavailable Codie Quintero MD Unavailable [phone] Teodoro Palomino DPM Unavailable Manoj Locke MD Unavailable Reason for Visit * Reason Comments Med Refill Encounter Details Date Type Department Care Team (Late st Contact Info) Description 12/31/2023 Refill [facility] MEDICINE [address] [place], [place] [phone] Keith Hernandez MD [address] [place], [place] [phone] Alcohol use disorder, severe, dependence (CMS/HCC) Social [...] documented as of this encounter Care Teams Regulatory Affairs Specialist Relationship Specialty Start Date End Date Ana Luisa Bourne FNP [address] [place] [address] [place] [address] PCP - General Family Medicine 11/01/21 Geeta Zeng, Santosh [address] [place] [address] Pharmacist Internal Medicine 07/07/23 11/20/24 Priscilla Cody [address] [place] [address] Gastroenterology 11/21/24 Codie Quintero MD [address] [place] [address] Hematology and Oncology 11/21/24 Teodoro Palomino DPM [address] [place] [address] Podiatry 11/21/24 Manoj Locke MD [address] [address] General Surgery 11/21/24 [facility] 02/17/24 [facility] Skoog Machine Operator Mental Health 11/21/24 YOAN Cool ([facility]) Home Monitoring Clinician 11/21/24 documented as of this encounter
--- OUTSIDE RECORDS SUMMARY | 2025-01-26 09:32 | XMS_ITS | Encounter Summary ---
Author Organization [employer] Address [address] [place] [address] Care Team Providers Care Weight Tester Name Role Phone RupinderHarish oronale TURKEY BONER Primary Care Provider [phone] Geeta Zeng PharmD Unavailable [phone] Priscilla Cody Unavailable Codie Quintero MD Unavailable [phone] Teodoro Palomino DPM Unavailable [phone] Manoj Locke MD Unavailable [phone] Encounter Details Date Type Department Care Team (Late st Contact Info) Description 02/03/2024 Orders Only [facility] [address] [place] [address] Provider, MD William Social History Tobacco Use [...] Ql NAAT (10/14/2024 8:34 AM EDT) Pathologist [facility] Influenza A PCR NEGATIVE Negative [facility] Influenza B PCR NEGATIVE Negative [facility] Resp Syncy Virus RNA Qual PCR NEGATIVE Negative [facility] SARS COV2 PCR NEGATIVE Negative [facility] Comment:All test results mus t [...] use by authorized laboratories.Testing performed on the [employer] GeneXpert utilizingreal-time RT-PCR.All SARS CoV2 and positive influenza A/B results arereported to [facility]. 10/14/2024 8:34 AM EDT 10/14/2024 8:41 AM EDT us Generic External Data Provider LAB MICROBIOLOGY - GENERAL ORDERABLES Final Result [facility] [address] [place] [address] [phone] * (ABNORMAL) Confirmatory Syphilis Profile (09/20/2024 11:05 AM EDT) Pathologist [facility] Rapid Plasma Reagin, Quant Reactive 1:2(A) Nonreactive [facility] Treponema pallidum Antibody, Particle Agglutination Reactive(A) Nonreactive [facility] Comment:These results must b e reported by the ordering clinician orclinical facility to the [facility] required by state law.Testing performed at: [address] [address] 09/20/2024 11:0 5 AM EDT 09/21/2024 8:11 AM EDT us Lexi Mancera [facility] LAB BLOOD ORDERABLES Elaine l Result Performing Organization Address City/[facility]/ZIP Co de Phone Number [facility] [address] [place] [phone] * Creatinine, Serum (09/20/2024 11:05 AM EDT) Creatinine, Serum 0.70 0.5 - 1.4 mg/dL [facility] Estimated Glomerular Filt Rate >60 [facility] Comment:Chronic Kidney Disea se: Estimated GFR < 60 mL/min/[id number] Kidney Disease: Estimated GFR < 15 mL/min/1.73m2 09/20/2024 11:0 5 AM EDT 09/20/2024 1:43 PM EDT us Generic External Data Provider LAB BLOOD ORDERAB LES Final Result Performing Organization Address [facility] Co de Phone Number [facility] [address] [place] [phone] * BUN (Blood Urea Nitrogen) (09/20/2024 11:05 AM EDT) Urea Nitrogen (BUN) 12 9 - 16 mg/dL [facility] 09/20/2024 11:0 5 AM EDT 09/20/2024 1:43 PM EDT us Generic External Data Provider LAB BLOOD ORDERAB LES Final Result Performing Organization Address [facility]/ZIP Co de Phone Number [facility] [address] [place] [phone] * (ABNORMAL) Comprehensive Metabolic Panel (06/02/2024 2:31 PM EDT) Pathologist [facility] Sodium 144 135 - 145 mmol/L [facility] Potassium 3.6 3.3 - 5.1 mmol/L [facility] Chloride 108 96 - 108 mmol/L [facility] Carbon Dioxide 29 22 - 29 mmol/L [facility] Anion Gap 11(L) 12 - 20 [facility] Urea Nitrogen (BUN) 4(L) 9 - 16 mg/dL [facility] Creatinine, Serum 0.66 0.5 - 1.4 mg/dL [facility] Estimated Glomerular Filt Rate >60 [facility] Comment:Chronic Kidney Disea se: Estimated GFR < 60 mL/min/1.49b7Oadqea Kidney Disease: Estimated GFR < 15 mL/min/1.73m2 Glucose 188(H) 60 - 115 mg/dL [facility] Calcium 9.4 8.4 - 10.2 mg/dL [facility] Bilirubin, Total 0.3 0.0 - 1.0 mg/dL [facility] Aspartate Amino Transferase 20 5 - 31 U/L [facility] Alanine Aminotransferase 18 0 - 31 U/L [facility] Total Protein 7.2 6.5 - 8.0 g/dL [facility] Albumin Level 3.8 3.5 - 5.0 g/dL [facility] Alkaline Phosphatase 84 39 - 117 U/L [facility] 06/02/2024 2:31 PM EDT 06/02/2024 2:31 PM EDT us Generic External Data Provider LAB BLOOD ORDERAB LES Final Result [facility] [address] [place] [phone] * CBC auto differential (06/02/2024 2:31 PM EDT) Pathologist [facility] White Blood Count 9.0 4.8 - 10.8 X10*3/uL [facility] Red Blood Count 5.24 4.20 - 5.50 X10*6/uL [facility] Hemoglobin 14.3 12.0 - 16.0 g/dl [facility] Hematocrit 46.1 37.0 - 47.0 % [facility] Mean Corpuscular Volume 88.0 80.0 - 98.0 fL [facility] Mean Corpuscular Hemoglobin 27.3 27.0 - 33.0 pg [facility] Mean Corpuscular HGB Conc 31.0 31.0 - 35.0 g/dl [facility] Red Cell Distribution Width 13.7 11.0 - 16.0 % [facility] Platelet Count 286 160 - 400 X10*3/uL [facility] Mean Platelet Volume 10.2 9.4 - 12.3 fL [facility] Neutrophils Percent Auto 67.0 45 - 73 % [facility] Imm Gran Pct Auto 0.3 0.0 - 0.4 % [facility] Lymphocytes Percent Auto 24.3 20 - 40 % [facility] Monocytes Percent Auto 6.5 2 - 11 % [facility] Eosinophils Percent Auto 1.0 0 - 4 % [facility] Basophils Percent Auto 0.9 0 - 2 % [facility] NRBC Pct Auto 0.0 0.0 - 0.2 /100WBC [facility] Neutrophils Absolute Auto 6.0 2.0 - 8.3 x10*3/uL [facility] Imm Gran Abs Auto 0.03 0.00 - 0.03 X10*3/uL [facility] Lymphocytes Absolute Auto 2.2 1.2 - 4.9 X10*3/uL [facility] Monocytes Absolute Auto 0.6 0.1 - 1.2 X10*3/uL [facility] Eosinophils Absolute Auto 0.1 0.0 - 0.4 X10*3/uL [facility] Basophils Absolute Auto 0.1 0.0 - 0.2 X10*3/uL [facility] NRBC Abs Auto 0.000 0.0 - 0.012 X10*3/uL [facility] 06/02/2024 2:31 PM EDT 06/02/2024 2:31 PM EDT us Generic External Data Provider LAB BLOOD ORDERAB LES Final Result [facility] [address] [place] [phone] * Hm Colonoscopy (01/16/2024 2:15 PM EST) us Historical Provider HEALTH MAINTENANCE Final Result documented in this encounter Visit Diagnoses Not on filedocumented in this encounter Additional Health Concerns Assessment Noted Time PHQ-9 Depression Total Score: 9 12/18/19 24 1:33 PM EDT documented as of this encounter Care Teams Weight Tester Relationship Specialty Start Date End Date Ana Luisa Bourne FNP [address] [place] [address] PCP - General Family Medicine 11/01/21 Geeta Zeng, DaphneD [address] [place] [address] Pharmacist Internal Medicine 07/07/23 11/20/24 Priscilla Cody [address] [place] [phone] Gastroenterology 11/21/24 Codie Quintero MD [address] [place] [phone] Hematology and Oncology 11/21/24 Teodoro Palomino DPM [address] [place] [phone] Podiatry 11/21/24 Manoj Locke MD [address] [address] General Surgery 11/21/24 [facility]17[facility] Mental Health 11/21/24 YOAN Cool (A) Home Monitoring Clinician 11/21/24 documented as of this encounter
--- OUTSIDE RECORDS SUMMARY | 2025-01-26 09:33 | XMS_ITS | Encounter Summary ---
Author Organization [employer] Address [address] [place] [address] Care Team Providers Care Instructional Technologist Name Role Phone Ana Luisa Bourne Primary Care Provider Geeta Zeng PharmD Unavailable Priscilla Cody Unavailable Codie Quintero MD Unavailable [phone] Teodoro Palomino DPM Unavailable Manoj Locke MD Unavailable Reason for Visit * Reason Onset Date Comments Med Refill 01/09/2023 Encounter Details Date Type Department Care Team (Late st Contact Info) Description 01/09/2023 Refill [facility] [address] [place] [address] Ana Luisa Bourne FNP [address] [place], [place] [phone] Type 2 diabetes mellitus without complication, with long-term current use of insulin ([facility]) Social History Tobacco Use Types Packs/Day Years [...] 12:30 PM EDT Tc from Jason from [facility] requesting medication refill for OXcarbazepine (Trileptal) 600 MG tablet, tamoxifen (Nolvadex) 20 MG chemo tablet, dapagliflozin (Farxiga) 5 MG. 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 Please call [phone] documented in this encounter Plan of Treatment Not on file documented as of this encounter Visit Diagnoses Diagnosis Type 2 diabetes mellitus without complication, with long-term current use of insulin (HCC) documented in this encounter Additional Health Concerns Assessment Noted Time PHQ-9 Depression Total Score: 0 03/22/19 23 2:05 PM EST documented as of this encounter Care Teams Instructional Technologist Relationship Specialty Start Date End Date Ana Luisa Bourne FNP [address] [place] [address] PCP - General Family Medicine 11/01/21 Geeta Zeng PharmD [address] [place] [phone] Pharmacist Internal Medicine 07/07/23 11/20/24 Priscilla Cody [address] [place] [phone] Gastroenterology 11/21/24 Codie Quintero MD [address] [place] [phone] Hematology and Oncology 11/21/24 Teodoro Palomino DPM [address] [place] [phone] Podiatry 11/21/24 Manoj Locke MD [address] [address] General Surgery 11/21/24 [facility] Home Health 02/17/24 [employer]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
--- OUTSIDE RECORDS SUMMARY | 2025-01-26 09:33 | XMS_ITS | Clinical Summary ---
Author Organization [employer] Address [address] [facility] [address] [place] [address] Care Team Providers Care Wheel Press Operator Name Role Phone Ana Luisa Bourne GIUSEPPE Primary Care Provider [phone] Priscilla Cody Unavailable Codie Quintero MD Unavailable [phone] Teodoro Palomino DPSolis Unavailable Manoj Locke MD Unavailable [phone] Allergies No known active allergies Medications * This document contains information received from the source organization and may not represent a complete record from that organization. docusate sodium (Colace) 100 MG capsule 1 capsule as needed Active ibuprofen 600 MG tablet TAKE 1 TABLET BY MOUTH EVERY 6 HOURS NEEDED FOR PAIN Active traZODone (Desyrel) 100 MG tablet Take [...] morning Active fluticasone (Flonase) 50 MCG/ACT nasal sprayIndications :Left otitis media with effusion Administer 1-2 sprays into each nostril in the morning. Shake gently. Before first use, prime pump. After use, clean tip and replace cap. 16 g 2 023 Active Additional Information Patient not taking.Reported on 07/07/2023 FreeStyle lancets 1 each by Other route 2 times daily. USE TO TEST BLOOD SUGAR TWICE DAILY 100 each 11 024 Active Additional Information Patient not taking.Reported on 07/07/2023 Lidocaine-Mentho l 4-1 % creamIndications :Chest wall pain,Acute pain of left shoulder Apply 2 g topically 3 times daily. 120 g 024 Active nicotine polacrilex (Nicorette) 2 MG gumIndications:T obacco use Chew 1 each (2 mg) every 4 (four) hours if needed for smoking cessation. 100 each 3 024 Active nicotine (Nicoderm CQ) 21 MG/24HR patchIndications :Tobacco use Apply 1 patch on the skin (one) time each day at the same time x 6 weeks. 42 patch 024 Active nicotine (Nicoderm CQ) 14 MG/24HR patchIndications :Tobacco use After completion of 21mg/day patch: Apply 1 patch on the skin (one) time each day at the same time x 2 weeks. 14 patch 024 Active nicotine (Nicoderm CQ) 7 MG/24HR patchIndications :Tobacco use After completion of 14mg/day patch: Apply 1 patch on the skin (one) time each day at the same time x 2 weeks. 14 patch 024 Active BD Pen Needle Padmini 2nd Gen 32G X 4 MM miscIndications: Type 2 diabetes mellitus without complication, with long-term current use of insulin (HCC) USE WITH HUMALOG KWIKPEN TWICE A DAY 100 each 11 024 Active triamcinolone (Kenalog) 0.1 % creamIndications :Xerosis of skin Apply topically Once per day. Mix with CeraVe cream as directed and apply after bathing or showering. 80 g 3 024 Active ketoconazole (NIZOral) 2 % shampooIndicatio ns:Seborrheic dermatitis Apply topically 2 (two) times a week. 120 mL 2 024 Active atorvastatin (Lipitor) 80 MG tabletIndication s:Other hyperlipidemia TAKE 1 TABLET BY MOUTH EVERYDAY AT BEDTIME 90 tablet 3 024 Active ipratropium-albu terol (Duo-Neb) 0.5-2.5 mg/3 mL nebulizer solutionIndicati ons:Hx of wheezing inhale 3 milliliter by nebulization route 4 times every day as needed for shortness of breath 90 mL 2 024 Active budesonide-formo terol (Symbicort) 80-4.5 MCG/ACT inhalerIndicatio ns:Hx of wheezing Inhale 2 puffs in the morning and at bedtime. Rinse mouth with water after use to reduce aftertaste and incidence of candidiasis. Do not swallow. 1 each 11 024 Active albuterol (Ventolin HFA) 108 (90 Base) MCG/ACT inhalerIndicatio ns:Hx of wheezing Inhale 2 puffs Every 4-6 hours as needed for wheezing or shortness of breath. 18 g 11 024 Active Alcohol Swabs (Alcohol Prep) 70 % pads USE TO TEST BLOOD SUGAR TWICE DAILY 100 each 11 024 Active ferrous sulfate 325 (65 Fe) MG tabletIndication s:Other iron deficiency anemia TAKE 1 TABLET BY MOUTH EVERY OTHER DAY 45 tablet 025 Active dapagliflozin (Farxiga) 5 MGIndications:Ty pe 2 diabetes mellitus without complication, with long-term current use of insulin ([facility]) TAKE 1 TABLET BY MOUTH EVERY MORNING 90 tablet 3 025 Active lisinopril 5 MG tabletIndication s:Primary hypertension TAKE 1 TABLET BY MOUTH EVERY DAY 90 tablet 1 025 Active emtricitabine-te nofovir DF (Truvada) 200-300 MG tablet One tablet by mouth daily 90 tablet 025 Active doxycycline (Vibra-Tabs) 100 MG tablet Take two tablets together up to 72h after sex for infection prevention. Do not take more than one dose daily. 60 tablet 025 Active FREESTYLE LITE test strip USE DIRECTED TO TEST TWICE DAILY 50 each 1 025 Active metFORMIN (Glucophage) 1000 MG tabletIndication s:Type 2 diabetes mellitus without complication, with long-term current use of insulin (HCC) TAKE 1 TABLET BY MOUTH TWICE DAILY WITH BREAKFAST AND DINNER 180 tablet 1 025 Active topiramate 50 MG tablet Take 50 mg by mouth in the morning and 50 mg in the evening. Active insulin lispro protamine-insuli n lispro (HumaLOG MIX 75/25 KWIKPEN) (75-25) 100 UNIT/ML injectionIndicat ions:Type 2 diabetes mellitus without complication, with long-term current use of insulin (HCC) INJECT 40 UNITS SUBCUTANEOUSLY WITH BREAKFAST AND EVENING MEAL 15 mL 3 025 Active insulin lispro protamine-insuli n lispro (HumaLOG MIX 75/25 KWIKPEN) (75-25) 100 UNIT/ML injectionIndicat ions:Type 2 diabetes mellitus without complication, with long-term current use of insulin (HCC) Inject 40 Units under the skin with breakfast and with evening meal. 3 mL 12 024 2024 Discontinued(R eorder (will not trigger notification to Pharmacy)) Active Problems Problem Noted Date Diagnosed Date [...] of syphilis 04/20/2023 Overview (04/20/2023): Following with [facility] ID - Dr. Nichols Consult plan July 2022: Repeat RPR Q6-12 months. Tx if titer > 1:16 Assessment & Plan (11/21/2024 3:47 PM EDT): - Reactive titer 1:2 in September 2024 Healthcare maintenance 12/29/2022 Overview (11/21/2024): Mammo: history of left breast CA. Mammo BIRADS 2 on 07/21/24 Pap: HPV neg 06/05/21, followed by Estela Hung CNM Colonoscopy: 01/16/24 at [facility] - repeat 2-3 years d/t adenoma polyps and sub optimal prep LDCT: referred to [facility] September 2023 Dental: referral to [facility] Dental Apr 2023 Last PE: 11/19/24 Hep B immune status: not-immune as of 09/2024 despite 3-dose Hep B series. Consider Heplisav 2-dose series. Assessment & Plan (04/20/2023 6:48 PM EST): Reviewed routine screening above with pt and Caitlin. Plan for follow up with GI and HOSPICE MANAGER Prurigo nodularis 11/01/2022 Tobacco use 03/25/2022 Assessment & Plan (11/21/2024 3:49 PM EDT): - Encouraged smoking cessation resources such as pharmacomtherapy, [facility] smoking cessation group, and [facility] pharmacy smoking cessation clinic -Cigg/day: 40 -Age started: 20 -Total years smokin -Pack year history: > 30 -Cont NRT patches and gum. Reviewed med safety and SE. -Referred to [facility] LDCT for lung CA screening on 09/17/23 Assessment & Plan (09/17/2023 4:38 PM EDT): - Encouraged smoking cessation resources such as pharmacomtherapy, [facility] smoking cessation group, and [facility] pharmacy smoking cessation clinic -Cigg/day: 40 -Age started: 20 -Total years smokin -Pack year history: > 30 -Cont NRT patches and gum. Reviewed med safety and SE. -Referred to [facility] LDCT for lung CA screening on 09/17/23 Assessment & Plan (04/20/2023 6:49 PM EST): - Encouraged smoking cessation resources such as pharmacomtherapy, [facility] smoking cessation group, and [facility] pharmacy smoking cessation clinic - Discuss [...] make med adjustments today -Plan: referral to [facility] for further management of [...] situ) of the left breast -Followed by [facility] Heme/Onc - Dr. Quintero -She is s/p lumpectomy, completed radiation therapy. -Continues on tamoxifen 20mg daily x 5 years (until 07/13/2025) -Denies any med SE -Plan for annual pelvic exam and annual eye exams Assessment & Plan (12/30/2023 8:43 PM EDT): -DCIS (Ductal carcinoma in situ) of the left breast -Followed by [facility] Heme/Onc - Dr. Quintero -She is S/p lumpectomy, completed radiation therapy. -Continues on tamoxifen 20mg daily x 5 years (until 07/13/2025) -Denies any med SE -Plan for annual pelvic exam and annual eye exams Assessment & Plan (04/20/2023 6:31 PM EST): -DCIS (Ductal carcinoma in situ) of the left breast -Followed by [facility] Heme/Onc - Dr. Quintero -She is S/p lumpectomy, completed radiation therapy. -Continues on tamoxifen 20mg daily x 5 years (until 07/13/2025) -Denies any med SE -Plan for annual pelvic exam and annual eye exams Assessment & Plan (12/29/2022 5:58 PM EDT): -Followed by [facility] Heme/Onc - Dr. Quintero -She is S/p [...] (11/21/2024 3:46 PM EDT): - Following with [facility] GI - Meds include: dulcolax, senna, colace, and miralax - Encouraged increased fiber intake and activity Assessment & Plan (03/25/2022 1:54 PM EST): -Continue following with management through GI Schizoaffective disorder (CMS/HCC) 05/28/2018 Assessment & Plan (12/06/2024 11:51 AM [...] BID Previously following with [facility] and [facility]. Referral to [facility] Forms team on 09/17/23 to assist with RESEARCH TEST ENGINE OPERATOR eval. Assessment & Plan (09/17/2023 4:40 PM EDT): -Denies SI/HI/thoughts of self harm -Followed by Dr. Slade Gracia -Continue with med management through psych team: Invega 12mg PO daily Trazodone 200mg PO at bedtime PRN Oxcarbazepine 600mg PO at bedtime Zoloft 200mg PO daily Seroquel 100mg PO at bedtime Topamax 25mg BID Previously following with [facility] and [facility]. Referral to [facility] Forms team on 09/17/23 to assist with RESEARCH TEST ENGINE OPERATOR eval. Assessment & Plan (04/20/2023 6:37 PM [...] organization. Date Type Department Care Team Description 01/25/2025 Orders Only [facility] External Provider, [facility] 01/24/2025 Refill [facility] [address] [place] [address] Ana Luisa Bourne FNP Type 2 diabetes mellitus without complication, with long-term current use of insulin (HCC) 01/14/2025 Telephone [facility] [address] [place] [address] Ana Luisa Bourne FNP Medication Question 01/06/2025 Outside Procedure [facility] OPTOMETRY [address] [place] [address] Masoud, Rona, OD Presbyopia (Primary Dx) 01/05/2025 9:00 AM EDT Office Visit [facility] OPTOMETRY [address] [place] [address] MasoudAdriann, OD Myopia of both eyes (Primary Dx) 01/05/2025 Travel 12/30/2024 Telephone [facility] MEDICINE [address] [place] [phone] Ana Luisa Bourne FNP 12/23/2024 Orders Only GENERIC EXTERNAL DATA DEPARTMENT Provider, Generic External Data 12/22/2024 Results Follow-Up [facility] [address] [place] [address] Ana Luisa Bourne FNP POCT Glucose, POCT Hgb A1c, Lipid Panel, Standard, Additional followed-up results: 2 12/21/2024 Telephone [facility] [address] [place] [phone] Ana Luisa Bounre FNP 12/03/2024 10:00 AM EDT Immunization [address] [address] Encounter for immunization 12/03/2024 Travel 12/02/2024 Patient Outreach [address] [address] Codey Seth Recovery Supports 12/02/2024 Orders Only GENERIC EXTERNAL DATA DEPARTMENT Provider, Generic External Data 12/01/2024 9:00 AM EDT Office Visit [facility] MED[facility] [address] [place] [phone] Keith Hernandez MD Alcohol use disorder, severe, dependence (CMS/HCC) (Primary Dx) 12/01/2024 Travel 11/30/2024 10:15 AM EDT Office Visit [facility] [address] [place] [phone] Mojgan Clarke MD Stress (Primary Dx) 11/30/2024 Patient Outreach [facility] [address] [place] [address] Clifton Hernan RC Recovery Supports 11/30/[address] [address] Ana Luisa Bourne FNP 11/30/2024 Travel 11/24/2024 Orders Only [facility] [address] [place] [address] Laverne Penaloza MD Type 2 diabetes mellitus without complication, with long-term current use of insulin (CMS/HCC) (Primary Dx) 11/24/2024 Telephone [facility] [address] [place] [address] Angeline Georges PharmD 11/22/2024 Telephone [facility] [address] [place] [phone] Ana Luisa Bourne FNP 11/19/2024 9:30 AM EDT Office Visit [facility] [address] [place] [address] Ana Luisa Bourne FNP Encounter for routine [...] use 11/19/2024 Travel 11/18/2024 Telephone [facility] [address] [place] [address] Ana Luisa Bourne FNP chart prep 11/12/2024 1:00 PM EDT Office Visit [facility] OPTOMETRY [address] [place] [address] Juli Lutz OD Type 2 diabetes mellitus without ophthalmic manifestations (CMS/HCC) (Primary Dx); Myopia of both eyes; Presbyopia; Dry eyes; Age-related nuclear cataract of both eyes 11/12/2024 Travel 11/12/2024 Patient Outreach [address] [phone] Ana Luisa Bourne FNP Pre-visit Planning (Pre visit planning LVM ) 11/09/2024 Patient Outreach [address] [address] Hernan Lazo Recovery Supports 10/28/2024 Patient Outreach [address] [address] Codey Seth Recovery Supports 10/27/[address] [phone] Ana Luisa Bourne FNP ER Follow-up from Last 3 Months Immunizations Immunization Administration [...] 1970 Sigmoidoscopy 1970 Family Planning (PISQ) 07/06/1987 RSV Patients and Patients Aged 60 years or older (1 - Risk 50-74 years 1-dose series) 2022 Zoster Vaccines (1 of 2) 2022 Dental Oral Exam 12/27/2023 06/26/2023 COVID-19 Vaccine ( season) 2024 11/27/2023, 12/23/2022, 03/22/2022, Additional history exists Diabetes: Hemoglobin A1C 02/18/2025 025, 12/29/2023, 09/17/2023, Additional history exists Depression Monitoring 05/22/2025 11/22/2024, 025 Mammogram 07/21/2025 07/21/2024, 0209/2023, 05/06/2023, Additional history exists Alcohol/Substance Use Screening 08/05/2025 08/05/2024 Disability Screening 09/27/2025 09/27/2024 SDOH Screening 09/27/2025 09/27/2024 Diabetes: Foot Exam 10/27/2025 10/27/2024 Tobacco Screening 11/12/2025 11/12/2024 Lipid Panel 12/02/2025 12/02/2024, 07/09, 03/27/2022, Additional history exists Colonoscopy 01/15/2026 01/16/2024 Colorectal Cancer Screening 01/15/2026 Cervical Cancer Screening 06/05/2026 HPV/Cotest 06/05/2026 06/05/2021 Pap Smear 06/05/2026 Dental X-Ray: Full Mouth 06/26/2026 06/26/2023 Eye Exam 11/12/2026 11/12/2024, 0907/2024, 11/12/2024, Additional history exists DTaP/Tdap/Td Vaccines (2 - Td or Tdap) 05/28/2028 05/28/2018, 07/06/2008 Hepatitis A Vaccines Aged Out 05/17/2021, 10/15/19 19 No longer eligible based on patient's age to complete this topic Pneumococcal Vaccine: 50+ Years Completed 04/18/2023, 05/28/2018, 11/29/2015, Additional history exists HIV Screening Completed 09/20/2024, [...] 13.7(11/20/19 25 10:20 AM EDT) No Geeta Zeng, PharmD [...] has chronic kidney disease No Roopa Kerns Procedures Procedure Name Priority Date/Time Associated Diagnosis Comments CT ENTEROGRAPHY ABDOMEN PELVIS W CONTRAST Routine 01/25/2025 3:36 PM EST POCT CREATININE GFR Routine 01/25/2025 2 :39 PM EST CREATININE, SERUM Routine 12/23/2024 8:4 0 AM [...] current use of insulin (CMS/HCC) Primary hypertension LIPID PANEL, STANDARD Routine 12/02/2024 8:44 AM EDT Type 2 diabetes mellitus without complication, with long-term current use of insulin (CMS/FORMERLY [facility]) Primary hypertension POCT GLYCATED HEMOGLOBIN, TOTAL Routine 11/19/2024 10:20 AM EDT Type 2 diabetes mellitus without complication, with long-term current use of insulin (CMS/HCC) POCT GLUCOSE Routine 11/19/2024 10:20 AM EDT Type 2 diabetes mellitus without complication, with long-term current use of insulin (CMS/HCC) HEPATITIS C AB W/REFL TO HCV RNA, [...] Recently Relevant to Health Maintenance Results * CT Enterography Abdomen Pelvis w/ Contrast (01/25/2025 3:36 PM EST) Anatomical Region Laterality Modality Computed Tomogra phy 01/25/2025 3:36 PM EST Narrative 01/25/2025 4:22 PM EST [address] [address] [address] Scan Report Signed Patient: Hodan Lopez MR#: [id number] : 1970 Acct:[id number] Age/Sex: 54 / F ADM Date: 01/25/25 Loc: HO.CT Attending Dr: Priscilla Cody [facility]- Ordering Physician: Priscilla Cody [facility]- Date of Service: 01/25/25 Procedure(s): CT enterography Accession Number(s): [id number] cc: Priscilla Cody [facility]; Ana Luisa Bourne [facility] Report Number: [id number]: Total DLP = 354.00 mGy-cm Reason for [...] by: Fernanda Brower MD 01/25/2025 04:19 PM [facility] Dictated By: Fernanda Brower MD Signed By: <Electronically signed by Fernanda Brower MD in OV> 01/25/25 1619 DD/ 1536 TD/TT: 01/25/25 1556 Senior Clinical Research Scientist: DEMETRIUS Procedure Note Donotuseinterpreter, Image - 01/25/[address] [place] [address] [address] Scan Report Signed Patient: Lianna Lopez#: [id number] : 1970Acct:[id number] Age/Sex: 54 / FADM Date: 01/25/25 Loc: HO.CT Attending Dr: Priscilla CHIN-MARYSOL Ordering Physician: Priscilla Cody Date of Service: 01/25/25 Procedure(s): CT enterography Accession Number(s): [id number] cc: Priscilla Cody-MARYSOL; Ana Luisa Bourne [facility] Report Number: [id number]: Total DLP = 354.00 mGy-cm Reason for [...] 01/25/25 1619 DD/ 1536 TD/TT: 01/25/25 1556 Senior Clinical Research Scientist: DEMETRIUS [facility] External Provider IMG CT PROCEDURES Final Result * POCT Creatinine GFR (01/25/2025 2:39 PM EST) POCT Creatinine 0.9 0.5 - 1.4 mg/dL [facility] GFR POC 60 [facility] Comment:Chronic Kidney Disea se: Estimated GFR < 60 mL/min/[id number] Kidney Disease: Estimated GFR < 15 mL/min/1.73m2 01/25/2025 2:39 PM EST 01/25/2025 5:31 PM EST Narrative [facility] - 01/25/2025 5:33 PM EST [id number] Generic External Data Provider LAB POINT OF CARE TEST DOCKED DEVICE ORDERABLES Final Result [facility] [address] [place] [phone] * Creatinine, Serum (12/23/2024 8:40 AM EDT) Creatinine, Serum 0.79 0.5 - 1.4 mg/dL [facility] Estimated Glomerular Filt Rate >60 [facility] Comment:Chronic Kidney Disea se: Estimated GFR < 60 mL/min/1.07g9Ixcsft Kidney Disease: Estimated GFR < 15 mL/min/1.73m2 12/23/2024 8:40 AM EDT 12/23/2024 11:29 AM EDT us Generic External Data Provider LAB BLOOD ORDERAB LES Final Result Performing Organization Address [facility] de Phone Number [facility] [address] [place] [phone] * (ABNORMAL) BUN (Blood Urea Nitrogen) (12/23/2024 8:40 AM EDT) Urea Nitrogen (BUN) 7(L) 9 - 16 mg/dL [facility] 12/23/2024 8:40 AM EDT 12/23/2024 11:29 AM EDT us Generic External Data Provider LAB BLOOD ORDERAB LES Final Result Performing Organization Address [facility] Phone Number [facility] [address] [place] [phone] * TSH W/Reflex to FT4 (12/02/2024 8:44 AM EDT) TSH reflex Free T4 1.28 0.32 - 4.0 uIU/mL [facility] Blood Venous blood specimen / Unknown 12/02/2024 8:44 AM EDT 12/02/2024 10:57 AM EDT us Ana Luisa Bourne ACCOUNTING SUPPORT SPECIALIST LAB BLOOD ORDERABLES Final Res ult Performing Organization Address [facility] de Phone Number [facility] [address] [place] [phone] * (ABNORMAL) C-reactive Protein (12/02/2024 8:44 AM EDT) C Reactive Protein 1.40(H) < or = 0.50 mg/dL [facility] 12/02/2024 8:44 AM EDT 12/02/2024 10:57 AM EDT us Generic External Data Provider LAB BLOOD ORDERAB LES Final Result Performing Organization Address City/[facility]/ZIP Co de Phone Number [facility] [address] [place] [phone] * Lipase (12/02/2024 8:44 AM EDT) [facility] Lipase 21 8 - 78 U/L [facility] 12/02/2024 8:44 AM EDT 12/02/2024 10:57 AM EDT us Generic External Data Provider LAB BLOOD ORDERAB LES Final Result Performing Organization Address City/[facility] Co de Phone Number [facility] [address] [place] [phone] * (ABNORMAL) Lipid Panel, Standard (12/02/2024 8:44 AM EDT) Pathologist [facility] Triglycerides 90 <150 mg/dL [facility] Comment:Desirable Triglyceri de: less than 150 mg/dLBorderline High Triglyceride 150-199 mg/dLHigh Triglyceride: 200-499 mg/dLVery High Triglyceride: greater than or equal to 5OO mg/dL Cholesterol 152 <200 mg/dL [facility] Comment:Desirable Cholestero l: less than 200 mg/dLBorderline High Cholesterol: 200-239 mg/dLHigh Cholesterol: greater than 239 mg/dL LDL Cholesterol Calculated 96 <100 mg/dL [facility] Comment:Desirable LDL: less than 100 mg/dLNear Optimal/Above Optimal LDL: 110- 129 mg/dLBorderline High LDL: 130-159 mg/dLHigh LDL: 160-189 mg/dLVery High LDL: greater than or equal to 190 mg/dL HDL Cholesterol 38(L) >40 mg/dL [facility] Comment:Desirable HDL: great er than 40 mg/dL Note: This HDL assay may give artificially low results in patients with liver disease. Blood Venous blood specimen / Unknown 12/02/2024 8:44 AM EDT 12/02/2024 10:57 AM EDT us Ana Luisa Bourne ACCOUNTING SUPPORT SPECIALIST LAB BLOOD ORDERABLES Final Res ult [facility] [address] [place] [phone] * (ABNORMAL) Comprehensive Metabolic Panel (12/02/2024 8:44 AM EDT) Sodium 141 135 - 145 mmol/L [facility] Potassium 3.7 3.3 - 5.1 mmol/L [facility] Chloride 107 96 - 108 mmol/L [facility] Carbon Dioxide 26 22 - 29 mmol/L [facility] Anion Gap 12 12 - 20 [facility] Urea Nitrogen (BUN) 10 9 - 16 mg/dL [facility] Creatinine, Serum 0.73 0.5 - 1.4 mg/dL [facility] Estimated Glomerular Filt Rate >60 [facility] Comment:Chronic Kidney Disea se: Estimated GFR < 60 mL/min/1.73t8Xhopng Kidney Disease: Estimated GFR < 15 mL/min/1.73m2 Glucose 220(H) 60 - 115 mg/dL [facility] Calcium 8.8 8.4 - 10.2 mg/dL [facility] Bilirubin, Total 0.4 0.0 - 1.0 mg/dL [facility] Aspartate Amino Transferase 16 5 - 31 U/L [facility] Alanine Aminotransferase 11 0 - 31 U/L [facility] Total Protein 6.9 6.5 - 8.0 g/dL [facility] Albumin Level 3.9 3.5 - 5.0 g/dL [facility] Alkaline Phosphatase 84 39 - 117 U/L [facility] Blood Venous blood specimen / Unknown 12/02/2024 8:44 AM EDT 12/02/2024 10:57 AM EDT Ana Luisa Bourne [facility] LAB BLOOD ORDERABLES Final Res ult Performing Organization Address City/[facility]/ZIP Co de Phone Number [facility] [address] [place] [phone] * (ABNORMAL) POCT Hgb A1c (11/19/2024 10:20 AM EDT) Hemoglobin A1C 13.7(A) 4.0 - 5.7 % QC Media Lot # [id number] Lot# Expiration Date Blood 11/19/2024 10:2 0 AM EDT Ana Luisa Bourne [facility] POINT OF CARE TEST ENTER/EDIT ORDERABLES Final Result * (ABNORMAL) POCT Glucose (11/19/2024 10:20 AM EDT) Glucose Blood, POC 286(A) 60 - 200 mg/dL QC Media Lot # [id number] Lot# Expiration Date Blood Capillary blood specimen / Unknown 11/19/2024 10:20 AM EDT Ana Luisa Bourne [facility] POINT OF CARE TEST ENTER/EDIT ORDERABLES Final Result * Hepatitis C Antibody with Reflex to HCV, RNA, Quantitative, Real-Time PCR (09/20/2024 11:05 AM EDT) Hepatitis C Antibody Nonreactive Nonreactive [facility] Comment:Antibodies to HCV no t detected; does not exclude early acuteHCV infection. Blood Venous blood specimen / Unknown 09/20/2024 11:05 AM EDT 09/20/2024 1:43 PM EDT Lexi DENNISON LAB BLOOD ORDERABLES Elaine l Result [facility] [address] [place] [address] [phone] * HIV-1/2 Antigen and Antibodies, Fourth Generation, with Reflexes (09/20/2024 11:05 AM EDT) HIV AB/AG Nonreactive Nonreactive [facility] Comment:HIV-1 p24 Ag and/or HIV-1/HIV-2 Ab not detected.A test result that is nonreactive does not exclude thepossibility of exposure to or infection with HIV-1 and/orHIV-2. Nonreactive results in this assay for individualswith prior exposure to HIV-1 and/or HIV-2 may be due toantigen and antibody levels that are below the limit ofdetection of this assay.The [employer] HIV Ag/Ab Combo assay result andsupplemental assay results should be interpreted inconjunction with the patient's clinical presentation,history and other laboratory results. If the results areinconsistent with clinical evidence, additional testing issuggested to confirm the result. Blood Venous blood specimen / Unknown 09/20/2024 11:05 AM EDT 09/20/2024 1:43 PM EDT Lexi Man[facility] BLOOD ORDERABLES Elaine tiwari Result [facility] [address] [place] [address] [phone] * BI Mammogram Screening Tomosynthesis Bilateral (07/21/2024 12:45 PM EDT) Anatomical Region Laterality Modality Breast Bilateral Mammography 07/21/2024 12:4 5 PM EDT Narrative 07/30/2024 2:26 PM EDT [facility] [address] [place] [address] Mammography Report Signed Patient: Hodan Lopez MR#: [id number] : 1970 Acct:[id number] Age/Sex: 54 / F ADM Date: 07/21/24 Loc: HO.MAMMO Attending Dr: Codie Quintero MD Ordering Physician: Codie Quintero MD Results: 2Benig n Findings Date of Service: 07/21/24 Follow Up: 1 Year From Orig inal Mammogram Procedure(s): MM tomosynthesis screening BI Accession Number(s): [id number] cc: Codie Quintero MD; Ana Luisa Bourne ACCOUNTING SUPPORT SPECIALIST EXAMINATION: MM SCREENING DIGITAL BREAST TOMOSYNTHESIS, BILATERAL [...] 07/30/24 1424 DD/ 1245 TD/TT: 07/21/24 1254 Senior Clinical Research Scientist: Procedure Note Donotuseinterpreter, Image - 07/30/2024 [facility] [address] [place] [address] Dr. [place], [place] [address] Mammography Report Signed Patient: Sophy LopezVerónica#: [id number] : 1970Acct:[id number] Age/Sex: 54 / FADM Date: 07/21/24 Loc: HO.MAMMO Attending Dr: Codie Quintero MD Ordering Physician: Codie Quintero MDResults: 2Benig n Findings Date of Service: 07/21/24Follow Up: 1 Year From [facility] ina Mammogram Procedure(s): MM tomosynthesis screening BI Accession Number(s): [id number] cc: Codie Quintero MD; Ana Luisa Bourne ACCOUNTING SUPPORT SPECIALIST EXAMINATION: MM SCREENING DIGITAL BREAST TOMOSYNTHESIS, BILATERAL [...] 07/30/24 1424 DD/ 1245 TD/TT: 07/21/24 1254 Senior Clinical Research Scientist: [facility] External Provider IMG BI PROCEDURES Final Result * Hm Colonoscopy (01/16/2024 2:15 PM EST) Historical Provider HEALTH MAINTENANCE Final Result * HPV E6/E7 RFLX MARIBELL 16 18/45 (06/05/2021 3:35 PM EDT) HPV mRNA E6/E7 rflx Not Detected Not Detected [facility] Comment: Methodology: Parquetry Floor Layer-Mediated Amplification This assay detects E6/E7 viral messenger RNA (mRNA) from 14 high-risk HPV types (16,18,31,33,35,39,45,51,52,56,58,59,66,68). The analytical performance characteristics of this assay have been determined by [employer]. The modifications have not been cleared or approved by the FDA. This assay has been validated pursuant to the CLIA regulations and is used for clinical purposes. For additional information, please refer to http://education.Cloupia/faq/DUF795w7 (This link if provided for information/ educational purposes only.) THIS TEST WAS PERFORMED AT: [facility] [address] [place] [address],[place] [address] LEE VILLALPANDO MD 06/05/2021 3:35 PM EDT us Estela Hung HISTORICAL/NON ORDERABLE LABS Fi nal Result [facility] [address] from Last 3 Months or Most Recently Relevant to Health Maintenance Additional Health Concerns Active Problems Noted Date Diagnosed Date Help patients manage their type 2 diabetes 01/24 Weekly blood pressure task 01/24/2025 Help patients manage their type 2 diabetes 01/24 Patient has chronic kidney disease 01/24/2025 Weekly blood pressure task 01/24/2025 Patient has chronic kidney disease 01/24/2025 Insurance [facility] STAND ADULT Care Teams Wheel Press Operator Relationship Specialty Start Date End Date Ana Luisa Bourne FNP [address] [place] [address] PCP - General Family Medicine 11/01/21 Priscilla Cody [address]rd [place] [address] Gastroenterology 11/21/24 Codie Quintero MD [address] [place] [address] Hematology and Oncology 11/21/24 Teodoro Palomino DPM [address] [place] [address] Podiatry 11/21/24 Manoj Lokce MD [address] [place] [address] 3rd [place] [address] General Surgery 11/21/24 [facility] 02/17/24 [facility] Senior Property Accountant Mental Health 11/21/24 YOAN Cool (VNA) Home Monitoring Clinician 11/21/24
--- OUTSIDE RECORDS SUMMARY | 2025-01-26 09:33 | XMS_ITS | Encounter Summary ---
Author Organization [employer] Address [address] [facility] 7t [place] [address] Care Team Providers Care Pharmacy Technician Infusion Name Role Phone Ana Luisa Bourne Primary Care Provider [phone] Geeta Zeng PharmD Unavailable Priscilla Cody Unavailable Codie Quintero MD Unavailable [phone] Teodoro Palomino DPSolis Unavailable Manoj Locke MD Unavailable [phone] Reason for Visit * Reason Onset Date Comments Results 03/07/2023 Encounter Details Date Type Department Care Team ([facility] st Contact Info) Description 03/07/2023 Telephone [facility] CHC MED & PEDS [address] [place], [place] [phone] Ana Luisa Bourne FNP [address] [place], [place] [phone] Results Social History Tobacco Use Types Packs/Day [...] when done: 02/05 Please contact pt at [phone] TC placed to patient regarding above message at all numbers. Preferred number above had full VM boxso no message could be left. Message left at main number to try us back. Interpretation of results below from Angélica Bourne. Routing back to [facility] nurses to try again. Please call [...] when done: 02/05 Please contact pt at [phone] documented in this encounter Plan of Treatment Not on file documented as of this encounter Visit Diagnoses Not on filedocumented in this encounter Additional Health Concerns Assessment Noted Time PHQ-9 Depression Total Score: 0 03/22/19 23 2:05 PM EST documented as of this encounter Care Teams Pharmacy Technician Infusion Relationship Specialty Start Date End Date Ana Luisa Bourne FNP [address] [place] [address] PCP - General Family Medicine 11/01/21 Geeta Zeng, DaphneD [address] [place] [address] Pharmacist Internal Medicine 07/07/23 11/20/24 Priscilla Cody [address] [place] [address] Gastroenterology 11/21/24 Codie Quintero MD [address] [place] [address] Hematology and Oncology 11/21/24 Teodoro Palomino DPM [address] [place] [address] Podiatry 11/21/24 Manoj Locke MD [address] [place] [address] General Surgery 11/21/24 [facility] Health 02/17/24 [facility] Line Cutter Operator Mental Health 11/21/24 YOAN Cool (VNA) Home Monitoring Clinician 11/21/24 documented as of this encounter
--- OUTSIDE RECORDS SUMMARY | 2025-01-26 09:33 | XMS_ITS | Encounter Summary ---
Author Organization [employer] Address 75 [facility] 7t [place] [address] Care Team Providers Care Dewaterer Operator Name Role Phone Ana Luisa Bourne Primary Care Provider [phone] Geeta Zeng PharmD Unavailable Priscilla Cody Unavailable Codie Quintero MD Unavailable [phone] Teodoro Palomino DPM Unavailable [phone] Manoj Locke MD Unavailable Reason for Visit * Reason Onset Date Comments Nurse Triage 02/27/2023 Encounter Details Date Type Department Care Team (Late st Contact Info) Description 02/27/2023 Telephone [facility] CHC MED & PEDS [address] [place], [place] [phone] Ana Luisa Bourne FNP [address] [place], [place] [phone] Nurse Triage Social History Tobacco Use Types [...] accepted this outcome Please contact pt at [phone] (overweaver needed) documented in this encounter Plan of Treatment Not on file documented as of this encounter Visit Diagnoses Not on filedocumented in this encounter Additional Health Concerns Assessment Noted Time PHQ-9 Depression Total Score: 0 03/22/19 23 2:05 PM EST documented as of this encounter Care Teams Dewaterer Operator Relationship Specialty Start Date End Date Ana Luisa Bourne FNP [address] [place] [address] PCP - General Family Medicine 11/01/21 Geeta Zeng PharmD [address] [place] [address] Pharmacist Internal Medicine 07/07/23 11/20/24 Priscilla Cody [address] [place] [address] Gastroenterology 11/21/24 Codie Quintero MD [address] [place] [address] Hematology and Oncology 11/21/24 Teodoro Palomino DPM [address] [place] [address] Podiatry 11/21/24 Manoj Locke MD [address] [place] [address] General Surgery 11/21/24 [facility] 02/17/24 [facility] Cargo Station Worker Mental Health 11/21/24 YOAN Cool (VNA) Home Monitoring Clinician 11/21/24 documented as of this encounter
--- OUTSIDE RECORDS SUMMARY | 2025-01-26 09:34 | XMS_ITS | Encounter Summary ---
Author Organization [employer] Address 75 [facility] 7t [place] [address] Care Team Providers Care New Client Banking Services Clerk Name Role Phone Ana Luisa Bourne Primary Care Provider Geeta Zeng PharmD Unavailable Priscilla Cody Unavailable Codie Quintero MD Unavailable [phone] Teodoro Palomino DPM Unavailable Manoj Locke MD Unavailable Reason for Visit * Reason Comments Med Change Request Encounter Details Date Type Department Care Team (Late st Contact Info) Description 09/18/2022 Refill [facility] MEDICINE [address] [place] [address] Ana Luisa Bourne FNP [address] [place], [place] [phone] Type 2 diabetes mellitus without complication, with long-term current use of insulin ([facility]) Social History Tobacco Use Types Packs/Day [...] documented as of this encounter Care Teams New Client Banking Services Clerk Relationship Specialty Start Date End Date Ana Luisa Bourne FNP [address] [place] [address] PCP - General Family Medicine 11/01/21 Geeta Zeng, DaphneD [address] [place] [address] Pharmacist Internal Medicine 07/07/23 11/20/24 Priscilla Cody [address] [place] [address] Gastroenterology 11/21/24 Codie Quintero MD [address] [place] [address] Hematology and Oncology 11/21/24 Teodoro Palomino DPM [address] [place] [address] Podiatry 11/21/24 Manoj Locke MD [address] [place] [address] General Surgery 11/21/24 [facility] 02/17/24 [facility] Sprinkler Worker Mental Health 11/21/24 YOAN Cool (VNA) Home Monitoring Clinician 11/21/24 documented as of this encounter
--- OUTSIDE RECORDS SUMMARY | 2025-01-26 09:34 | XMS_ITS | Encounter Summary ---
Author Organization [employer] Address [address] [facility] [address] 7t [place] [address] Care Team Providers Care Service Associate Name Role Phone Ana Luisa Bourne Primary Care Provider [phone] Geeta Zeng PharmD Unavailable Priscilla Cody Unavailable Codie Quintero MD Unavailable [phone] Teodoro Palomino DPM Unavailable Manoj Locke MD Unavailable Encounter Details Date Type Department Care Team (Late st Contact Info) Description 06/19/2022 Telephone [facility] MEDICINE [address] [place] [address] Ana Luisa Bourne FNP [address] [place], [place] [phone] Social History Tobacco Use Types Packs/Day Years [...] documented as of this encounter Care Teams Service Associate Relationship Specialty Start Date End Date Ana Luisa Bourne FNP [address] [place] [address] PCP - General Family Medicine 11/01/21 Geeta Zeng, DaphneD [address] [place] [address] Pharmacist Internal Medicine 07/07/23 11/20/24 Priscilla Cody [address] [place] [address] Gastroenterology 11/21/24 Codie Quintero MD [address] [place] [address] Hematology and Oncology 11/21/24 Teodoro Palomino DPM [address] [place] [address] Podiatry 11/21/24 Manoj Locke MD [address] [place] [address] General Surgery 11/21/24 [facility] Health 02/17/24 Is[facility] Oil Field Tester Mental Health 11/21/24 YOAN Cool (VNA) Home Monitoring Clinician 11/21/24 documented as of this encounter
--- OUTSIDE RECORDS SUMMARY | 2025-01-26 09:34 | XMS_ITS | Encounter Summary ---
Author Organization [employer] Address [address] [facility] [address] 7t [place] [address] Care Team Providers Care Jail Officer Name Role Phone Ana Luisa Bourne Primary Care Provider Geeta Zeng PharmD Unavailable Priscilla Cody Unavailable Codie Quintero MD Unavailable [phone] Teodoro Palomino DPSolis Unavailable Manoj Locke MD Unavailable [phone] Encounter Details Date Type Department Care Team (Late st Contact Info) Description 09/15/2023 Telephone [facility] MEDICINE [address] [place] [address] Ana Luisa Bourne FNP [address] [place], [place] [phone] Social History Tobacco Use Types Packs/Day Years [...] documented as of this encounter Care Teams Jail Officer Relationship Specialty Start Date End Date Ana Luisa Bourne FNP [address] [place] [address] PCP - General Family Medicine 11/01/21 Geeta Zeng, PharmD [address] [place] [address] Pharmacist Internal Medicine 07/07/23 11/20/24 Priscilla Cody [address] [place] [address] Gastroenterology 11/21/24 Codie Quintero MD [address] [place] [address] Hematology and Oncology 11/21/24 Teodoro Palomino DPM [address] [place] [address] Podiatry 11/21/24 Manoj Locke MD [address] [place] [address] General Surgery 11/21/24 [facility] 02/17/[address] [facility] Cam Maker Mental Health 11/21/24 YOAN Cool (VNA) Home Monitoring Clinician 11/21/24 documented as of this encounter
--- OUTSIDE RECORDS SUMMARY | 2025-01-26 09:35 | XMS_ITS | Encounter Summary ---
Author Organization [employer] Address 75 [facility] 7t [place] [address] Care Team Providers Care Equipment Specialist Name Role Phone Ana Luisa Bourne [facility] Primary Care Provider Geeta Zeng PharmD Unavailable Priscilla Cody Unavailable Codie Quintero MD Unavailable [phone] Teodoro Palomino DPM Unavailable [phone] Manoj Locke MD Unavailable [phone] Reason for Visit * Reason Comments Med Refill Encounter Details Date Type Department Care Team (Late st Contact Info) Description 11/06/2022 Refill [facility] WALK-IN C[facility] [address] [place], [place] [phone] [facility] 230 [place] [address] Left otitis media with effusion Social History [...] documented as of this encounter Care Teams Equipment Specialist Relationship Specialty Start Date End Date Ana Luisa Bourne FNP [address] [place] [address] PCP - General Family Medicine 11/01/21 Geeta Zeng PharmD [address] [place] [address] Pharmacist Internal Medicine 07/07/23 11/20/24 Priscilla Cody [address] [place] [address] Gastroenterology 11/21/24 Codie Quintero MD [address] [place] [address] Hematology and Oncology 11/21/24 Teodoro Palomino DPM [address] [place] [address] Podiatry 11/21/24 Manoj Locke MD [address] [place] [address] General Surgery 11/21/24 [facility] [place] [facility] Health 02/17/24 [facility] Petroleum Geology Faculty Member Mental Health 11/21/24 YOAN Cool (VNA) Home Monitoring Clinician 11/21/24 documented as of this encounter
--- OUTSIDE RECORDS SUMMARY | 2025-01-26 09:36 | XMS_ITS | Encounter Summary ---
Author Organization [employer] Address 75 [facility] 7t [place] [address] Care Team Providers Care Funding Specialist Name Role Phone Ana Luisa Bourne [facility] Primary Care Provider Geeta Zeng PharmD Unavailable Priscilla Cody Unavailable Codie Quintero MD Unavailable [phone] Teodoro Palomino DPM Unavailable Manoj Locke MD Unavailable [phone] Reason for Visit * Reason Comments Med Refill Encounter Details Date Type Department Care Team (Late st Contact Info) Description 11/08/2022 Refill [facility] WALK[facility] C[facility] 230 [place], [place] [phone] [facility] 230 [place] [address] Left otitis media with effusion Social History [...] documented as of this encounter Care Teams Funding Specialist Relationship Specialty Start Date End Date Ana Luisa Bourne FNP 230 [place] [address] PCP - General Family Medicine 11/01/21 Geeta Zeng PharmD [address] [place] [address] Pharmacist Internal Medicine 07/07/23 11/20/24 Priscilla Cody [address] [place] [address] Gastroenterology 11/21/24 Codie Quintero MD [address] [place] [address] Hematology and Oncology 11/21/24 Teodoro Palomino DPM [address] [place] [address] Podiatry 11/21/24 Manoj Locke MD [address] [place] [address] General Surgery 11/21/24 [facility] Health 02/17/24 [facility] Caregiver Services Home Mental Health 11/21/24 YOAN Cool (VNA) Home Monitoring Clinician 11/21/24 documented as of this encounter
--- OUTSIDE RECORDS SUMMARY | 2025-01-26 09:36 | XMS_ITS | Encounter Summary ---
Author Organization [employer] Address 75 [facility] 7t [place] [address] Care Team Providers Care Lacquerer Name Role Phone Ana Luisa Bourne Primary Care Provider Geeta Zeng PharmD Unavailable Priscilla Cody Unavailable Codie Quintero MD Unavailable [phone] Teodoro Palomino DPM Unavailable [phone] Manoj Locke MD Unavailable Reason for Visit * Reason Onset Date Comments Order(s) 10/20/2023 Encounter Details Date Type Department Care Team (Late st Contact Info) Description 10/20/2023 Telephone [facility] MEDICINE 230 [place] [address] Ana Luisa Bourne FNP [address] [place], [place] [phone] Order(s) Social History Tobacco Use Types Packs/Day [...] 4:02 PM EDT Tc from Sun with [facility] stating since pt is a smoker she is requesting her to have a CT scan before upcoming PE. If any questions you can contact Sun at [phone]. documented in this encounter Plan of Treatment [...] documented as of this encounter Care Teams Lacquerer Relationship Specialty Start Date End Date Ana Luisa Bourne FNP [address] [place] [address] PCP - General Family Medicine 11/01/21 Geeta Zeng PharmD 230 [place] [address] Pharmacist Internal Medicine 07/07/23 11/20/24 Priscilla Cody [address] [place] [address] Gastroenterology 11/21/24 Codie Quintero MD [address] [place] [address] Hematology and Oncology 11/21/24 Teodoro Palomino DPM [address] [place] [address] Podiatry 11/21/24 Manoj Locke MD [address] [address] General Surgery 11/21/24 [facility] 02/17/24 [facility] Game Technician Mental Health 11/21/24 YOAN Cool (VNA) Home Monitoring Clinician 11/21/24 documented as of this encounter
--- OUTSIDE RECORDS SUMMARY | 2025-01-26 09:37 | XMS_ITS | Encounter Summary ---
Author Organization [employer] Address [address] [facility] [address] 7t [place] [address] Care Team Providers Care Line Installer Trolley Name Role Phone Ana Luisa Bourne Primary Care Provider Geeta Zeng PharmD Unavailable [phone] Priscilla Cody Unavailable Codie Quintero MD Unavailable [phone] Teodoro Palomino DPM Unavailable Manoj Locke MD Unavailable Reason for Visit * Reason Comments Med Refill Encounter Details Date Type Department Care Team (Late st Contact Info) Description 08/29/2024 Refill [facility] WALK[facility]IN [facility] 230 [place] [address] Ana Luisa Bourne FNP 505 [place], [place] [phone] Other hyperlipidemia Social History Tobacco Use Types [...] documented as of this encounter Care Teams Line Installer Trolley Relationship Specialty Start Date End Date Ana Luisa Bourne FNP [address] [place] [address] PCP - General Family Medicine 11/01/21 Geeta Zeng, Santosh 230 [place] [address] Pharmacist Internal Medicine 07/07/23 11/20/24 Priscilla Cody [address] [place] [address] Gastroenterology 11/21/24 Codie Quintero MD [address] [place] [address] Hematology and Oncology 11/21/24 Teodoro Palomino DPM [address] [place] [address] Podiatry 11/21/24 Manoj Locke MD [address] [place] [address] General Surgery 11/21/24 [facility] Health 02/17/24 [facility] Adjustment Examiner Mental Health 11/21/24 YOAN Cool (VNA) Home Monitoring Clinician 11/21/24 documented as of this encounter
--- OUTSIDE RECORDS SUMMARY | 2025-01-26 09:38 | XMS_ITS | Clinical Summary ---
Author Organization [facility] Address [address] [facility] [address] [place] [address] Phone Care Team Providers Care Fingerprint Expert Name Role Phone Sonali Harper MD Primary Care Provider [phone] Allergies No known active allergies Medications atorvastatin (LIPITOR) 80 MG tablet Take 80 mg by mouth daily. Active docusate sodium (COLACE) 100 MG capsule Take 100 mg by mouth 2 (two) times a day. Active ferrous sulfate 325 mg (65 mg false pass iron) tablet Take 325 mg by mouth [...] patient's age to complete this topic IPV VACCINES Aged Out No longer eligi ble [...] ACO C3 ACO C3 ACO Care Teams Fingerprint Expert Relationship Specialty Start Date End Date Sonali Harper MD [address] [place] [address] [place] [address] [email or web address] PCP - General Family Medicine 07/07/20 Additional Source Comments The information contained in this document represents components of the legal health record. It is not the complete legal health record.[facility]
--- OUTSIDE RECORDS SUMMARY | 2025-01-26 09:38 | XMS_ITS | Encounter Summary ---
Author Organization [facility] Address 399 [facility] [address] [place] [address] Phone Care Team Providers Care Medical Information Officer Name Role Phone Sonali Harper MD Primary Care Provider [phone] Encounter Details Date Type Department Care Team (Late st Contact Info) Description 07/11/2020 Ancillary Orders [facility],Outside Imaging [address] [place] [address] System, Provider Not In, [place] [address] Social History Tobacco Use Types Packs/Day Years [...] on filedocumented in this encounter Care Teams Medical Information Officer Relationship Specialty Start Date End Date Sonali Harper MD 230 [facility] 1 [place] [address] [email or web address] PCP - General Family Medicine 07/07/20 documented as of this encounter Additional Source Comments The information contained in this document represents components of the legal health record. It is not the complete legal health record.[facility]
--- OUTSIDE RECORDS SUMMARY | 2025-01-26 09:39 | XMS_ITS | Encounter Summary ---
Author Organization [facility] Address [address] [facility] [address] [place] [address] Phone Care Team Providers Care Top Steep Tender Name Role Phone Sonali Harper MD Primary Care Provider [phone] Encounter Details Date Type Department Care Team (Late st Contact Info) Description 07/11/2020 Ancillary Orders [facility],Outside Imaging 30 [place] [address] System, Provider [place] In, [place] [address] Social History Tobacco Use Types Packs/Day Years [...] on filedocumented in this encounter Care Teams Top Steep Tender Relationship Specialty Start Date End Date Sonali Harper MD 230 [facility] 1 [place] [address] [email or web address] PCP - General Family Medicine 07/07/20 documented as of this encounter Additional Source Comments The information contained in this document represents components of the legal health record. It is not the complete legal health record.[facility]
--- OUTSIDE RECORDS SUMMARY | 2025-01-26 09:39 | XMS_ITS | Patient Health Record ---
Author Organization [facility] Address [address] [place] [address] Care Team Providers Care Manager Simulation Name Role Phone Cruz Colindres Jessica Primary Care Provider Pedro Correa [phone] Reason For Referral No Information Medications Medication SIG (Take, Route, Frequency, Duration) Notes Start Date End Date Status SEROquel 100 MG Tablet 1 tablet at bedti me Orally Once a day; Duration: 30 day(s) Active Invega Sustenna 234 MG/1.5ML Suspension Prefilled Syringe 1.5 ml Intramuscular; Duration: 30 day(s) Active Nicotine Polacrilex 4 MG Gum 1 piece for 30 minute as needed Mouth/Throat 24 time(s) a day Active OXcarbazepine 600 MG Tablet Oral; Duration: 90 Active HumaLOG Mix 75/25 (75-25) 100 UNIT/ML Suspension as directed Subcutaneous Active QUEtiapine Fumarate 200 MG Tablet 1 tablet Oral Once a day Act jay jay MiraLax 17 GM Packet 1 packet mixed with 8 ounces of fluid Orally Once a day; Duration: 30 day(s) Active Colace 100 MG Capsule 1 capsule as neede d Orally Once a day; Duration: 30 day(s) Active Lisinopril 5 MG Tablet 1 tablet Orally O nce a day; Duration: 30 day(s) Active MiraLax (colon prep) 17 GM/SCOOP Powder mixed with Gatorade or Crystal Light Orally Take as directed 2 days before and 1 day before the colonoscopy; Duration: 2 days 01/27/2021 Active Farxiga 5 MG Tablet 1 tablet Orally Once a day; Duration: 30 day(s) Active metFORMIN HCl 1000 MG Tablet 1 tablet with a meal Oral bid Active Dulcolax (colon prep) 5 MG Tablet Delayed Release Take as directed 2 days before the colonoscopy, and then take at 3:00 p.m and 7:00p.m the day before the colonoscopy Orally Take 2 pills 2 days before the colonoscopy, and then two tablets twice a day the day before the colonoscopy; Duration: 2 days 01/27/2021 Active MiraLax (colon prep) 17 GM/SCOOP Powder 2 238Gm bottles mixed with Gatorade or Crystal Light Orally Use 2 days before and 1 day before the colonoscopy as directed; Duration: 2 days 01/30/2021 Active Clotrimazole 1 % Cream 1 application Ext ernally Twice a day; Duration: 28 day(s) Active Atorvastatin Calcium 80 MG Tablet Oral; Duration: 90 Active Nicotine 21 MG/24HR Patch 24 Hour 1 patch to skin Transdermal Once a day; Duration: 30 day(s) Active Ferrous Sulfate 325 (65 Fe) MG Tablet Oral; Duration: 90 Active Tamoxifen Citrate 20 MG Tablet 1 tablet Orally Once a day; Duration: 30 day(s) Active traZODone HCl 100 MG Tablet 1 tablet at bedtime Oral prn Active Immunizations Vaccine Route Administration Date Status Comme nts Influenza Unknown 01/10/2021 Administered Social History Tobacco Use: Social History Observation Description Date Details (start date - stop date) Current Smoker NA - NA Social History Drugs/Alcohol: Social Info Question Answer Notes Alcohol Screen Did you have a drink containing alcohol in the past year? No Points 0 Interpretation Negative Tobacco Use: Social Info Question Answer Notes Tobacco Use/Smoking Patient is a current smoker How often do you smoke cigarettes? every day Additional Details Category Social Info Options Details Miscellaneous: Marital status: single Occupation: disabled Section Notes: She does smoke but denies an y significant alcohol use Problems Problem Type SNOMED Code ICD Code Onset Dates Problem Status W/U Status Risk Notes Problem Gastroesophageal reflux disease (768120605) Gastroesophageal reflux disease (K21.9) Active confirmed Problem Iron deficiency anemia (27404293) Iron deficiency anemia (D50.9) Active confirmed Problem Iron deficiency anemia due to chronic blood loss (394619117) Iron deficiency anemia due to chronic blood loss (D50.0) Active confirmed Plan Of Treatment Future Test Test Name Order Date UPPER GI ENDOSCOPY 01/24/2021 COLONOSCOPY 01/24/2021 Insurance Providers Payer Name Payer Address Payer Phone Subscriber Number Group Number Insured Name Patient Relationship to Insured Coverage Start Date Coverage End Date MEDICAID OF [facility] [address] [place] [id number] SAI MORA Self - patient is the insured Medical (General) History Surgical History Surgery Date(Month/Year) Breast surgery with a left lumpectomy as above Tubal ligation
--- OUTSIDE RECORDS SUMMARY | 2025-01-26 09:40 | XMS_ITS | Encounter Summary ---
Author Organization [facility] Address [address] [facility] [address] [place] [address] Phone Care Team Providers Care Evp Head Of [employer] Experience Strategy Name Role Phone Sonali Harper MD Primary Care Provider [phone] Encounter Details Date Type Department Care Team (Late st Contact Info) Description 07/11/2020 Ancillary Orders [facility],Outside Imaging 30 [place] [address] System, Provider [place] In, [place] [address] Social History Tobacco Use Types Packs/Day Years [...] on filedocumented in this encounter Care Teams Evp Head Of [employer] Experience Strategy Relationship Specialty Start Date End Date Sonali Harper MD 230 [facility] 1 [place] [address] [email or web address] PCP - General Family Medicine 07/07/20 documented as of this encounter Additional Source Comments The information contained in this document represents components of the legal health record. It is not the complete legal health record.[facility]
--- OUTSIDE RECORDS SUMMARY | 2025-01-26 09:40 | XMS_ITS | Encounter Summary ---
Author Organization [facility] Address [address] [facility] [address] [place] [address] Phone Care Team Providers Care Eye Surgeon Name Role Phone Sonali Harper MD Primary Care Provider [phone] Encounter Details Date Type Department Care Team (Late st Contact Info) Description 07/11/2020 Ancillary Orders [facility],Outside Imaging 30 [place] [address] System, Provider Not In, [place] [address] Social History Tobacco Use Types Packs/Day Years [...] on filedocumented in this encounter Care Teams Eye Surgeon Relationship Specialty Start Date End Date Sonali Harper MD [address] [place] [address] [email or web address] PCP - General Family Medicine 07/07/20 documented as of this encounter Additional Source Comments The information contained in this document represents components of the legal health record. It is not the complete legal health record.[facility]
--- OUTSIDE RECORDS SUMMARY | 2025-01-26 09:40 | XMS_ITS | Encounter Summary ---
Author Organization [facility] Address [address] [facility] [address] [place] [address] Phone Care Team Providers Care Comb Setter Name Role Phone Sonali Harper MD Primary Care Provider [phone] Encounter Details Date Type Department Care Team (Late st Contact Info) Description 07/11/2020 Ancillary Orders [facility],Outside Imaging 30 [place] [address] System, Provider Not In, [place] [address] Social History Tobacco Use Types Packs/Day Years [...] on filedocumented in this encounter Care Teams Comb Setter Relationship Specialty Start Date End Date Sonali Harper MD [address] [place] [address] [email or web address] PCP - General Family Medicine 07/07/20 documented as of this encounter Additional Source Comments The information contained in this document represents components of the legal health record. It is not the complete legal health record.[facility]
--- OUTSIDE RECORDS SUMMARY | 2025-01-26 09:41 | XMS_ITS | Encounter Summary ---
Author Organization [facility] Address [address] [facility] [address] [place] [address] Phone Care Team Providers Care Air Quality Instrument Specialist Name Role Phone Sonali Harper MD Primary Care Provider [phone] Encounter Details Date Type Department Care Team (Late st Contact Info) Description 07/11/2020 Ancillary Orders [facility],Outside Imaging 30 [place] [address] System, Provider [place] In, [place] [address] Social History Tobacco Use Types Packs/Day Years [...] on filedocumented in this encounter Care Teams Air Quality Instrument Specialist Relationship Specialty Start Date End Date Sonali Harper MD [address] [place] [address] [email or web address] PCP - General Family Medicine 07/07/20 documented as of this encounter Additional Source Comments The information contained in this document represents components of the legal health record. It is not the complete legal health record.[facility]
--- OUTSIDE RECORDS SUMMARY | 2025-01-26 09:42 | XMS_ITS | Encounter Summary ---
Author Organization [facility] Address [address] [facility] [address] [place] [address] Phone Care Team Providers Care Newspaper Writer Name Role Phone Sonali Harper MD Primary Care Provider [phone] Encounter Details Date Type Department Care Team (Late st Contact Info) Description 07/11/2020 Ancillary Orders ,Outside Imaging 30 [place] [address] System, Provider Not In, [place] [address] Social History Tobacco Use Types Packs/Day Years [...] on filedocumented in this encounter Care Teams Newspaper Writer Relationship Specialty Start Date End Date Sonali Harper MD [address] [place] [address] [email or web address] PCP - General Family Medicine 07/07/20 documented as of this encounter Additional Source Comments The information contained in this document represents components of the legal health record. It is not the complete legal health record.[facility]
--- OUTSIDE RECORDS SUMMARY | 2025-01-26 09:42 | XMS_ITS | Encounter Summary ---
Author Organization [facility] Address [address] [facility] [address] [place] [address] Phone Care Team Providers Care Raw Shellfish Preparer Name Role Phone Sonali Harper MD Primary Care Provider [phone] Encounter Details Date Type Department Care Team (Late st Contact Info) Description 07/11/2020 Ancillary Orders [facility],Outside Imaging 30 [place] [address] System, Provider Not In, [place] [address] Social History Tobacco Use Types Packs/Day Years [...] on filedocumented in this encounter Care Teams Raw Shellfish Preparer Relationship Specialty Start Date End Date Sonali Harper MD 230 [facility] 1 [place] [address] [email or web address] PCP - General Family Medicine 07/07/20 documented as of this encounter Additional Source Comments The information contained in this document represents components of the legal health record. It is not the complete legal health record.[facility]
--- OUTSIDE RECORDS SUMMARY | 2025-01-26 09:43 | XMS_ITS | Encounter Summary ---
Author Organization [facility] Address [address] [facility] [address] [place] [address] Phone Care Team Providers Care Excellence Consultant Name Role Phone Sonali Harper MD Primary Care Provider [phone] Encounter Details Date Type Department Care Team (Late st Contact Info) Description 07/11/2020 Ancillary Orders [facility],Outside Imaging 30 [place] [address] System, Provider [place] In, [place] [address] Social History Tobacco Use Types Packs/Day Years [...] on filedocumented in this encounter Care Teams Excellence Consultant Relationship Specialty Start Date End Date Sonali Harper MD [address] [place] [address] [email or web address] PCP - General Family Medicine 07/07/20 documented as of this encounter Additional Source Comments The information contained in this document represents components of the legal health record. It is not the complete legal health record.[facility]
--- OUTSIDE RECORDS SUMMARY | 2025-01-26 09:43 | XMS_ITS | Encounter Summary ---
Author Organization [facility] Address [address] [facility] [address] [place] [address] Phone Care Team Providers Care Diving Supervisor Name Role Phone Sonali Harper MD Primary Care Provider [phone] Encounter Details Date Type Department Care Team (Late st Contact Info) Description 07/11/2020 Ancillary Orders [facility],Outside Imaging 30 [place] [address] System, Provider [place] In, [place] [address] Social History Tobacco Use Types Packs/Day Years [...] on filedocumented in this encounter Care Teams Diving Supervisor Relationship Specialty Start Date End Date Sonali Harper MD 230 [facility] 1 [place] [address] [email or web address] PCP - General Family Medicine 07/07/20 documented as of this encounter Additional Source Comments The information contained in this document represents components of the legal health record. It is not the complete legal health record.[facility]
--- OUTSIDE RECORDS SUMMARY | 2025-01-26 09:44 | XMS_ITS | Clinical Summary ---
Author Organization [address] [facility] Address 175 [place] [address] Phone Care Team Providers Care Powerhouse Operator Name Role Phone Ana Luisa Bourne [...] PM EDT Office Visit Orthopedic Surgery - [address] [address] Teodoro Palomino, DPM Dermatophytosis of nail (Primary Dx); Tinea pedis of both feet; Acquired hammer toe of right foot; Hammer toe of left foot; Type II diabetes mellitus with peripheral circulatory disorder ([facility] V24, CMS/[facility] V28); Diabetic mononeuropathy simplex (CMS/HCC V24, CMS/[facility] V28); Corns and callosities; Pain in [...] PM EST Office Visit Orthopedic Surgery - [place] [address] [address] Teodoro Palomino, ROXANN [address] [address] Health Maintenance Due Date Last [...] Control Test (HGBA1C) 06/28/2024 12/29/2023 COVID-19 Vaccine ( - season) 2024 11/27/2023, 12/23/2022, 03/22/2022 Influenza Vaccine [...] topic Insurance MEDICAID - [place] Care Teams Powerhouse Operator Relationship Specialty Start Date End Date Ana Luisa Bourne RN [address] [address] PCP - General 04/23/23
--- OUTSIDE RECORDS SUMMARY | 2025-01-26 09:44 | XMS_ITS | Encounter Summary ---
Author Organization [facility] Address 399 [facility] [address] [place] [address] Phone Care Team Providers Care Facilities Engineer Name Role Phone Sonali Harper MD Primary Care Provider [phone] Encounter Details Date Type Department Care Team (Late st Contact Info) Description 07/11/2020 Ancillary Orders [facility],Outside Imaging 30 [place] [address] System, Provider [place] In, [place] [address] Social History Tobacco Use Types Packs/Day Years [...] on filedocumented in this encounter Care Teams Facilities Engineer Relationship Specialty Start Date End Date Sonali Harper MD 230 [facility] 1 [place] [address] [email or web address] PCP - General Family Medicine 07/07/20 documented as of this encounter Additional Source Comments The information contained in this document represents components of the legal health record. It is not the complete legal health record.[facility]
--- OUTSIDE RECORDS SUMMARY | 2025-01-26 09:44 | XMS_ITS | Encounter Summary ---
Author Organization [facility] Address [address] [facility] [address] [place] [address] Phone Care Team Providers Care Electronic Repair Troubleshooter Name Role Phone Sonali Harper MD Primary Care Provider [phone] Encounter Details Date Type Department Care Team (Late st Contact Info) Description 07/11/2020 Ancillary Orders [facility],Outside Imaging 30 [place] [address] System, Provider [place] In, [place] [address] Social History Tobacco Use Types Packs/Day Years [...] on filedocumented in this encounter Care Teams Electronic Repair Troubleshooter Relationship Specialty Start Date End Date Sonali Harper MD 230 [facility] 1 [place] [address] [email or web address] PCP - General Family Medicine 07/07/20 documented as of this encounter Additional Source Comments The information contained in this document represents components of the legal health record. It is not the complete legal health record.[facility]
--- OUTSIDE RECORDS SUMMARY | 2025-01-26 09:45 | XMS_ITS | Encounter Summary ---
Author Organization [employer] Address [address] [facility] [address] [place] [address] Care Team Providers Care Magician/Illusionist Name Role Phone Ana Luisa Bourne Primary Care Provider [phone] Geeta Zeng PharmD Unavailable Priscilla Cody Unavailable Codie Quintero MD Unavailable [phone] Teodoro Palomino DPM Unavailable Manoj Locke MD Unavailable Reason for Visit * Reason Comments Med Refill Encounter Details Date Type Department Care Team (Late st Contact Info) Description 07/08/2024 Refill [facility] 230 [place] [address] Ana Luisa Bourne FNP 505 [place], [place] [id number] Other hyperlipidemia Social History Tobacco Use Types [...] documented as of this encounter Care Teams Magician/Illusionist Relationship Specialty Start Date End Date Ana Luisa Bourne FNP [address] [place] [id number] PCP - General Family Medicine 11/01/21 Geeta Zeng, Santosh 230 [place] [address] Pharmacist Internal Medicine 07/07/23 11/20/24 Priscilla Cody [address] [place] [address] Gastroenterology 11/21/24 Codie Quintero MD [address] [place] [address] Hematology and Oncology 11/21/24 Teodoro Palomino DPM [address] [place] [address] Podiatry 11/21/24 Manoj Locke MD [address] [place] [address] General Surgery 11/21/24 [facility] 02/17/24 [facility] Navigator Mental Health 11/21/24 YOAN Cool ([facility]) Home Monitoring Clinician 11/21/24 documented as of this encounter
--- OUTSIDE RECORDS SUMMARY | 2025-01-26 09:46 | XMS_ITS | Encounter Summary ---
Author Organization [employer] [facility] Address [address] [facility] 7t [place] [address] Care Team Providers Care Automation Clerk Name Role Phone Ana Luisa Bourne LIBRARY CIRCULATION DEPARTMENT CHIEF Primary Care Provider Geeta Zeng PharmD Unavailable Priscilla Cody Unavailable Codie Quintero MD Unavailable [phone] Teodoro Palomino DPM Unavailable [phone] Manoj Locke MD Unavailable Reason for Visit * Reason Comments Med Refill Encounter Details Date Type Department Care Team (Late st Contact Info) Description 07/07/2024 Refill [facility] 505 [place], [place] [phone] Cleo Malone MD 505 [place], [place] [phone] Primary hypertension Social History Tobacco Use Types [...] documented as of this encounter Care Teams Automation Clerk Relationship Specialty Start Date End Date Ana Luisa Bourne FNP [address] [place] [address] PCP - General Family Medicine 11/01/21 Geeta Zeng, Santosh 230 [place] [address] Pharmacist Internal Medicine 07/07/23 11/20/24 Priscilla Cody [address] [place] [address] Gastroenterology 11/21/24 Codie Quintero MD [address] [place] [address] Hematology and Oncology 11/21/24 Teodoro Palomino DPM [address] [place] [address] Podiatry 11/21/24 Manoj Locke MD [address] [place] [address] General Surgery 11/21/24 [facility] 02/17/24 [facility] Adjunct Business Instructor Mental Health 11/21/24 YOAN Cool ([facility]) Home Monitoring Clinician 11/21/24 documented as of this encounter
== END 2025-01-25 14:12 | disposition home or self-care (01) ==
LOC: HO.CT 14:11
PROVIDERS: PCP Registered Nurse; Visit Provider Nurse Practitioner Family
DX: R19.5 Other fecal abnormalities (principal)
CPT/HCPCS: 74177; 82565; Q9967

== ENCOUNTER → 2025-01-25 14:13 | Outpatient (BNV) | payer MEDICAID, SELFPAY | PROVIDERS: PCP Registered Nurse; Visit Provider Radiology Diagnostic Radiology | DX: K59.00 Constipation, unspecified (principal) | CPT/HCPCS: 74177 ==

== ENCOUNTER 2025-02-17 10:01 | Outpatient (REF) | payer MEDICAID, SELFPAY ==
[2025-02-17 10:59] LABS: MANUAL DIFF FLAG NO
[2025-02-17 11:03] LABS: Hematocrit 40.5 % (37.0-47.0); Hemoglobin 13.0 g/dl (12.0-16.0); Imm Gran Abs Auto 0.06 X10*3/uL (0.00-0.03); Imm Gran Pct Auto 0.6 % (0.0-0.4); Lymphocytes Absolute Auto 2.6 X10*3/uL (1.2-4.9); Mean Corpuscular HGB Conc 32.1 g/dl (31.0-35.0); Mean Corpuscular Hemoglobin 28.8 pg (27.0-33.0); Mean Corpuscular Volume 89.6 fL (80.0-98.0); NRBC Abs Auto 0.000 X10*3/uL (0.0-0.012); NRBC Pct Auto 0.0 /100WBC (0.0-0.2); Platelet Count 288 X10*3/uL (160-400); Red Blood Count 4.52 X10*6/uL (4.20-5.50); White Blood Count 10.6 X10*3/uL (4.8-10.8)
[2025-02-17 14:28] LABS: Alanine Aminotransferase 29 U/L (0-31); Albumin Level 4.2 g/dL (3.5-5.0); Alkaline Phosphatase 78 U/L (39-117); Anion Gap 11 (12-20); Aspartate Amino Transferase 25 U/L (5-31); Blood Urea Nitrogen 20 mg/dL (9-16); Calcium 9.4 mg/dL (8.4-10.2); Carbon Dioxide 25 mmol/L (22-29); Chloride 105 mmol/L (96-108); Estimated Glomerular Filt Rate > 60; Potassium 3.9 mmol/L (3.3-5.1); Sodium 137 mmol/L (135-145); Total Protein 7.6 g/dL (6.5-8.0)
== END 2025-02-17 10:02 ==
LOC: HO.HHCL 10:01
PROVIDERS: Internal Medicine Medical Oncology; PCP Registered Nurse; Visit Provider Advanced Practice Midwife
DX: D05.10 Intraductal carcinoma in situ of unspecified breast (principal)
CPT/HCPCS: 36415; 80053; 85025